=== PATIENT | male | born 1955 | race Caucasian/White ===

== ENCOUNTER → 2017-07-03 07:16 | Outpatient (CLI) | payer MEDICAID, SELFPAY ==
[2017-07-03 08:42] LABS: Absolute Lymphocyte Count 4.75 X10^3/ul (0.83-4.51); Absolute Neutrophil Count 4.4 X10^3/uL (2.0-7.7); Basophil# 0.09 X10^3/uL; Basophil% 0.8 % (0-1); Eosinophil# 0.16 X10^3/uL; Eosinophils% 1.5 % (0-5); Hematocrit 42.7 % (40-54); Hemoglobin 14.5 g/dl (13.0-16.5); Lymphocyte # 4.75 X10^3/ul (4.0); Lymphocyte % 44.6 % (19-41); Mean Corpuscular Hgb 32.4 pg (27.0-32.0); Mean Corpuscular Volume 95.3 fL (80-94); Mean Platelet Vol. 11.6 fl (6.2-12.0); Monocyte# 1.22 X10^3/uL; Monocyte% 11.5 % (0-10); Neutrophil # 4.35 X10^3/uL (2.7-7.7); Neutrophil % 40.9 % (47-70); Platelet Count 196 K/mm3 (150-450); RBC Distribution Width SD 47.3 fl (35.1-43.9); Red Blood Count 4.48 M/mm3 (4.6-6.2); White Blood Count 10.6 K/mm3 (4.4-11.0)
[2017-07-03 08:51] LABS: POSITIVE COUNT NO; POSITIVE DIFFERENTIAL NO; POSITIVE MORPHOLOGY NO
[2017-07-03 09:02] LABS: Valproic Acid (Depakene) Level 85 ug/mL (50-100)
[2017-07-03 09:09] LABS: ALB/GLOB Ratio 0.9 RATIO (0.9-2.4); AST(SGOT) 38 U/L (15-37); Alanine Aminotransfer ALT/SGPT 40 U/L (16-61); Albumin, Serum 3.2 g/dL (3.2-5.0); Alkaline Phosphatase 63 U/L (45-117); Anion Gap 9 (5-15); BUN 17 mg/dL (7-18); BUN/Creat Ratio 17.5 RATIO (10-20); Calcium,Total 8.9 mg/dL (8.5-10.1); Chloride 107 mmol/L (98-107); Creatinine, Serum 0.97 mg/dL (0.70-1.30); EST Glomerular Filtration Rate 84 mL/min (>60); Est Glom Filt Rate - Afr Amer 101 mL/min (>60); Globulin 3.7 g/dL (2.2-4.2); Glucose 99 mg/dL (74-106); Potassium 4.2 mmol/L (3.5-5.1); Protein, Total 6.9 g/dL (6.4-8.2); Sodium Level 139 mmol/L (136-145)
[2017-07-06 08:20] LABS: Lamotrigine (Lamictal) Level 12.1 ug/mL (2.0-20.0)
== END ==
PROVIDERS: Psychiatry & Neurology Neurology; Family Provider Family Medicine; PCP Family Medicine; Visit Provider Family Medicine
DX: G40.019 Localization-related (focal) (partial) idiopathic epilepsy and epileptic syndromes with seizures of localized onset, intractable, without status epilepticus (principal); G40.319 Generalized idiopathic epilepsy and epileptic syndromes, intractable, without status epilepticus; R27.0 Ataxia, unspecified
CPT/HCPCS: 36415; 80053; 80164; 82542; 85025

== ENCOUNTER 2018-02-01 14:41 | Emergency (ER) | payer MEDICAID, SELFPAY ==
[2018-02-01 14:43] VITALS: BP 154/77; PULSE 84; RESP 26; TEMP 36.9; O2SAT 93; BMI 33.0
--- NOTE | 2018-02-01 15:32 | ED.DCSUM_ITS ---
- ER Visit Summary Date of Service: 02/01/18 Chief Complaint: Tonic-clonic seizure History of Present Illness: The patient is a 62 M history of seizure disorder for which he takes both Depakote and Lamictal. Patient goes to an adult daycare during the day and has home health during the night. Today while at daycare he was sitting in a chair had a approximately a 10-minute seizure according to the staff. The state of tonic-clonic. He did not fall. He did not get injured. Prior to the seizure he had no complaints. He has had no recent head injury. He has not recently been ill according to the daycare personnel and also has home health care personnel. Patient is mentally retarded and is limited informant. Physical Examination: Well-appearing middle-age male. Vital signs are stable and afebrile. Pulse ox 93% on room air. No hypoxia. H EENT exam unremarkable. Face and scalp are atraumatic. Neck nontender. No meningismus. Lungs clear to auscultation bilaterally. Heart regular rhythm no murmur. Chest wall nontender. Abdomen is soft and nontender. Normal bowel sounds. No peritoneal signs. He is moving all 4 extremities. They are nontender. No deformity. Neurologically is awake. He is alert. He knows he is in the hospital. He does follow commands and answers questions. Back is nontender. Skin is unremarkable. Test Results: CBC normal white count 8. Hemoglobin 14. Chemistries unremarkable gap of 8. Creatinine normal. Valproic acid level was 83. The Depakote level is a send out. Emergency Department Course and Treatment: Recurrent breakthrough seizure with a history of seizure disorder. Repeat exam the patient is doing well at 1858. Will be discharged home. Continue his current medications. And follow-up with his neurologist. Treatment Plan: Follow-up with his neurologist. Disposition: dc Impression: Recurrent seizure History of seizure disorder History of mental retardation This note was generated with Encentuateation software. It may contain incorrect words, spelling, and punctuation that were not noted in review of the chart prior to signing ED Disposition - Plan for ED Patient: Chief Complaint: Seizure Referrals: Nigel Michelle MD [Primary Care Provider] -
[2018-02-01 15:56] LABS: Absolute Neutrophil Count 3.3 X10^3/uL (2.0-7.7); Basophil# 0.07 X10^3/uL; Basophil% 0.8 % (0-1); Eosinophil# 0.17 X10^3/uL; Eosinophils% 1.9 % (0-5); Hematocrit 41.3 % (40-54); Lymphocyte % 42.7 % (19-41); Mean Corp Hgb Conc 33.9 g/gl (32-36); Mean Corpuscular Hgb 32.9 pg (27.0-32.0); Mean Corpuscular Volume 96.9 fL (80-94); Mean Platelet Vol. 11.4 fl (6.2-12.0); Monocyte# 1.44 X10^3/uL; Monocyte% 16.2 % (0-10); Neutrophil # 3.32 X10^3/uL (2.7-7.7); Neutrophil % 37.4 % (47-70); Platelet Count 187 K/mm3 (150-450); RBC Distribution Width CV 14.6 % (11.6-14.6); RBC Distribution Width SD 50.3 fl (35.1-43.9); Red Blood Count 4.26 M/mm3 (4.6-6.2); White Blood Count 8.9 K/mm3 (4.4-11.0)
[2018-02-01 16:04] LABS: POSITIVE COUNT NO; POSITIVE DIFFERENTIAL NO; POSITIVE MORPHOLOGY NO
[2018-02-01 16:56] VITALS: BP 168/88; PULSE 80; RESP 14; O2SAT 96
[2018-02-01 17:50] LABS: Valproic Acid (Depakene) Level 83 ug/mL (50-100)
[2018-02-01 17:53] LABS: Anion Gap 8 (5-15); BUN 17 mg/dL (7-18); BUN/Creat Ratio 18.2 RATIO (10-20); Chloride 109 mmol/L (98-107); Creatinine, Serum 0.93 mg/dL (0.70-1.30); EST Glomerular Filtration Rate 87 mL/min (>60); Est Glom Filt Rate - Afr Amer 106 mL/min (>60); Estimated Creatinine Clearance 86.13 ml/min; Glucose 115 mg/dL (74-106); Potassium 4.4 mmol/L (3.5-5.1); Sodium Level 142 mmol/L (136-145)
[2018-02-01 18:00] VITALS: BP 177/84; PULSE 84; RESP 18; O2SAT 95
--- NOTE | 2018-02-01 19:00 | ED.DEP ---
ED Disposition - Plan for ED Patient: Disposition: Home or Assisted Living Chief Complaint: Seizure Instructions: ED Seizure Recurrent Referrals: Nigel Michelle MD [Primary Care Provider] - As soon as possible Additional Instructions: Continue your current medications. Follow-up with your neurologist.
[2018-02-01 19:15] VITALS: BP 161/83; PULSE 79; RESP 26; O2SAT 93
[2018-02-08 09:43] LABS: Lamotrigine (Lamictal) Level 9.9 ug/mL (2.0-20.0)
== END 2018-02-01 19:17 | disposition home or self-care (01) ==
PROVIDERS: Emergency Provider Emergency Medicine; Family Provider Family Medicine; PCP Family Medicine
DX: G40.409 Other generalized epilepsy and epileptic syndromes, not intractable, without status epilepticus (principal); F79 Unspecified intellectual disabilities; Z79.899 Other long term (current) drug therapy
CPT/HCPCS: 80048; 80164; 82542; 85025; 99285; A4216

== ENCOUNTER 2018-05-31 08:27 | Emergency (ER) | payer MEDICAID, SELFPAY ==
[2018-05-31 08:28] VITALS: BP 142/77; PULSE 73; RESP 16; TEMP 36.7; O2SAT 96; BMI 26.7
--- NOTE | 2018-05-31 08:50 | ED.DCSUM_ITS ---
- ER Visit Summary Date of Service: 05/31/18 Chief Complaint: Left third finger injury History of Present Illness: The patient is a 62 M [facility] in [facility]. Patient's left third finger was noted to be swollen and bruised this morning. He states it occurred at work shop yesterday. He does not elaborate on how it happened. Denies any other injury. Physical Examination: Vital signs unremarkable. Patient sitting upright in bed no acute distress. Left upper extremity examination reveals left third finger to be diffusely edematous and ecchymotic. He does have decreased range of motion. He does have diffuse tenderness palpation, slightly worse over the PIP joint. Test Results: X-rays read by radiology as degenerative changes with no evidence of fracture. There are a few areas that look like he may have a slight fracture line through an osteophyte, but these edges are smooth and may not be acute. Emergency Department Course and Treatment: An AlumaFoam splint is placed to the left third finger for comfort. Treatment Plan: [] Disposition: Discharge Impression: 1. Left hand contusion 2. Left third finger sprain This note was generated with [employer] dictation software. It may contain incorrect words, spelling, and punctuation that were not noted in review of the chart prior to signing ED Disposition - Plan for ED Patient: Referrals: Nigel Michelle MD [Primary Care Provider] -
--- NOTE | 2018-05-31 08:50 | RAD_ITS ---
STUDY: X-RAY - LEFT HAND REASON FOR EXAM: Male, 62 years old. Pain and swelling following recent injury. TECHNIQUE: 3 view(s) of the hand. COMPARISON: Comparison is made with prior examination dated September 30, 2013. FINDINGS: Normal radiocarpal articulation. Normal distal radioulnar joint. Normal visualized carpal bones. Normal carpal articulations Normal carpometacarpal articulation of the thumb. Normal second through fifth carpometacarpal joints. Normal metacarpi. Normal metacarpophalangeal joint of the thumb. Normal interphalangeal joint of the thumb. Normal proximal and distal phalanges of the thumb. Normal metacarpophalangeal joints of the second through fifth fingers. There is diffuse articular joint space narrowing of the proximal and distal interphalangeal joints of the second through fifth fingers, but without erosive changes or periarticular soft tissue swelling. Normal phalanges of the second through fifth fingers. The soft tissue structures are unremarkable. RAD/Hand Min 3 Views IMPRESSION: Degenerative changes. No fracture is seen. Electronically Signed: Nislon Verma MD at 9:26 EST , Service support ,
--- NOTE | 2018-05-31 09:58 | ED.DEP ---
ED Disposition - Plan for ED Patient: Disposition: Home or Assisted Living Instructions: ED Sprain Finger Referrals: Nigel Michelle MD [Primary Care Provider] - 1 Week
[2018-05-31 10:07] VITALS: PULSE 76; RESP 14; O2SAT 98
== END 2018-05-31 10:08 | disposition home or self-care (01) ==
PROVIDERS: Emergency Provider Emergency Medicine; Family Provider Family Medicine; PCP Family Medicine
DX: S63.613A Unspecified sprain of left middle finger, initial encounter (principal); X58.XXXA Exposure to other specified factors, initial encounter; Y93.9 Activity, unspecified; Y92.69 Other specified industrial and construction area as the place of occurrence of the external cause; Y99.9 Unspecified external cause status; S60.222A Contusion of left hand, initial encounter; R56.9 Unspecified convulsions; F79 Unspecified intellectual disabilities; Z79.899 Other long term (current) drug therapy
CPT/HCPCS: 73130; 99282

== ENCOUNTER 2018-10-30 18:03 | Emergency (ER) | payer MEDICAID, SELFPAY ==
[2018-10-30] VITALS (8 sets, daily range): BP systolic 91–169; BP diastolic 53–103; PULSE 66–99; RESP 18–24; TEMP 36.7–37.2; O2SAT 90–93; BMI 34.4
--- NOTE | 2018-10-30 18:41 | EKG12_ITS ---
Test Reason : LOC Blood Pressure : / mmHG Vent. Rate : 084 BPM Atrial Rate : 084 BPM P-R Int : 208 ms QRS Dur : 076 ms QT Int : 368 ms P-R-T Axes : 058 -11 030 degrees QTc Int : 434 ms Normal sinus rhythm Minimal voltage criteria for LVH, may be normal variant Nonspecific ST abnormality Abnormal ECG Confirmed by OTONIEL OVERTON, JERSEY ([id number]), metropolitan editor RUSSELL JOHNSON ([id number]) on 11/01/2018 12:26:34 PM Referred By: ROBERT Confirmed By:ДМИТРИЙ FREDERICK MD
[2018-10-30 18:58] LABS: Absolute Neutrophil Count 3.4 X10^3/uL (2.0-7.7); Basophil# 0.04 X10^3/uL; Basophil% 0.4 % (0-1); Eosinophil# 0.11 X10^3/uL; Eosinophils% 1.2 % (0-5); Hematocrit 40.2 % (40-54); Hemoglobin 13.9 g/dl (13.0-16.5); Lymphocyte % 44.8 % (19-41); Mean Corp Hgb Conc 34.6 g/gl (32-36); Mean Corpuscular Hgb 33.3 pg (27.0-32.0); Mean Corpuscular Volume 96.2 fL (80-94); Mean Platelet Vol. 12.2 fl (6.2-12.0); Monocyte% 15.3 % (0-10); Neutrophil % 37.1 % (47-70); Platelet Count 124 K/mm3 (150-450); RBC Distribution Width CV 14.5 % (11.6-14.6); RBC Distribution Width SD 49.2 fl (35.1-43.9); Red Blood Count 4.18 M/mm3 (4.6-6.2); White Blood Count 9.2 K/mm3 (4.4-11.0)
[2018-10-30] MEDS: 0.9% Normal Saline 1,000 ML 1000 ML IV (18:58)
[2018-10-30 18:59] LABS: POSITIVE COUNT NO; POSITIVE DIFFERENTIAL NO; POSITIVE MORPHOLOGY NO
--- NOTE | 2018-10-30 19:13 | RAD_ITS ---
STUDY: X-RAY CHEST REASON FOR EXAM: Male, 63 years old. Chest pain TECHNIQUE: PA and lateral views of the chest COMPARISON: X-ray chest November 15, 2016 FINDINGS: Left chest pacemaker is present. Retrocardiac atelectasis and/or infiltrate is present. Lung volumes are low with compressive changes. There are no pleural effusions. There is no pneumothorax. The heart is enlarged. The visualized osseous structures are within normal limits. RAD/Chest PA and Lateral IMPRESSION: Retrocardiac atelectasis and/or infiltrate. Low lung volumes with compressive changes. Cardiomegaly. Electronically Signed: Nigel Elam, at 19:27 EDT Tel , Service support ,
--- NOTE | 2018-10-30 19:13 | ED.RN ---
DR MEDINA AWARE OF LACTIC ACID 2.9.
[2018-10-30 19:14] LABS: Lactic Acid 2.9 mmol/L (0.4-2.0)
[2018-10-30 19:15] LABS: Anion Gap 9 (5-15); BUN 23 mg/dL (7-18); BUN/Creat Ratio 19.3 RATIO (10-20); Calcium,Total 9.6 mg/dL (8.5-10.1); Chloride 107 mmol/L (98-107); Creatinine, Serum 1.19 mg/dL (0.70-1.30); EST Glomerular Filtration Rate 66 mL/min (>60); Est Glom Filt Rate - Afr Amer 80 mL/min (>60); Estimated Creatinine Clearance 62.27 ml/min; Glucose 112 mg/dL (74-106); Potassium 4.2 mmol/L (3.5-5.1); Sodium Level 141 mmol/L (136-145)
[2018-10-30 22:52] LABS: Reflex Lactate? Y
--- NOTE | 2018-10-30 23:15 | ED.VISSUMM ---
- ER Visit Summary Date of Service: 10/30/18 Chief Complaint: Not himself holding History of Present Illness: The patient is a 63 M history of seizures and mental retardation. Per the nursing home personnel states she is not acting himself but currently she thinks he is back to his baseline. Denies any fever, vomiting, diarrhea or any other. Patient himself is a limited informant. Physical Examination: Initial blood pressure was 91/60 2-hour went in the room during exam is 141/71. Pulse ox 90% on room air with hypoxia but there are other times when his pulse ox was in the mid 90s. He is in no respiratory distress. HEENT exam is atraumatic. Poor dentition. Moist wheeze members. Neck nontender no lymphadenopathy. Lungs good auscultation bilaterally. Heart regular rhythm no murmur. Abdomen soft and nontender. Extremities moves all 4. Neurologically he is awake. He is alert. He does say hello. He does follow limited commands. Per the nursing home personnel this is his baseline she states he functions at a fifth-grade level. Test Results: CBC White count 9. Hemoglobin 13. Platelets 124,000. Chemistries normal normal gap. Normal creatinine 1.1. We attempted to get urine from the patient he was not want to urinate. He became emotionally upset and I did not want to put into a straight cath. So urine was not able to be obtained. We did try to persuade him other ways by offering him food or beverage and he refused to give urine. Troponin less than 0.015. Lactate 2.9. Chest x-ray shows atelectasis but no acute infiltrate read by myself and the radiologist. EKG was a sinus rhythm rate of 84 with no acute signs of FL or ischemia or any significant change from prior EKG from 2017. Emergency Department Course and Treatment: Multiple repeat exams are unchanged. Patient was sent for a CAT scan but could not hold still clinically I do not feel that he has an acute intracranial abnormality so we are going to cancel the CAT scan and the urinalysis. Repeat exam at 2309 is doing well. They are comfortable with him being discharged back to the nursing home. Treatment Plan: Follow-up with his primary care physician. Disposition: Discharge Impression: Transient hypotension resolved Transient mental status change resolved This note was generated with Freight Connectionation software. It may contain incorrect words, spelling, and punctuation that were not noted in review of the chart prior to signing ED Disposition - Plan for ED Patient: Referrals: Jesus Noble MD [Primary Care Provider] -
--- NOTE | 2018-10-30 23:23 | ED.DEP ---
ED Disposition - Plan for ED Patient: Disposition: Home or Assisted Living Instructions: Altered Loc Referrals: Jesus Noble MD [Primary Care Provider] - 3-5 Days Additional Instructions: Follow-up with your doctor if not improving. Return to ER if feeling worse.
[2018-10-30 23:42] LABS: Lactic Acid 1.5 mmol/L (0.4-2.0)
== END 2018-10-30 23:55 | disposition home or self-care (01) ==
PROVIDERS: Emergency Provider Emergency Medicine; Family Provider Family Medicine; PCP Family Medicine
DX: R41.82 Altered mental status, unspecified (principal); I95.9 Hypotension, unspecified; R09.02 Hypoxemia; R56.9 Unspecified convulsions; F79 Unspecified intellectual disabilities; Z79.899 Other long term (current) drug therapy
CPT/HCPCS: 71046; 80048; 83605; 84484; 85025; 93005; 96360; 96361; 99285; J7030; A4216

== ENCOUNTER 2019-02-21 16:32 | Emergency (ER) | payer MEDICAID, SELFPAY ==
[2018-10-30 18:04] VITALS: BMI 34.4
[2019-02-21 16:33] VITALS: BP 140/100; PULSE 100; RESP 17; TEMP 37.1; O2SAT 96; BMI 30.1
--- NOTE | 2019-02-21 16:55 | RAD_ITS ---
STUDY: X-RAY CHEST REASON FOR EXAM: Male, 63 years old. Weakness with fever. TECHNIQUE: Single frontal view of the chest. COMPARISON: October 30, 2018 FINDINGS: Low volume inspiration with elevation of the right hemidiaphragm and atelectasis of the right middle and lower lobes. There is no demonstrated pleural abnormality. Stable cardiomegaly. Normal mediastinum and eliot. Normal visualized pulmonary arteries. Normal visualized aortic arch and descending thoracic aorta. Normal visualized thoracic spine. Normal visualized ribs, clavicles, and shoulders. There is no demonstrated abnormality of the visualized soft tissue structures of the upper abdomen. RAD/Chest 1 View (Portable) IMPRESSION: Cardiomegaly with low volume inspiration. No acute finding. Electronically Signed: Donaldo Kang MD at 17:08 EDT , Service support ,
--- NOTE | 2019-02-21 16:55 | ED.VIS.GEN ---
History of Present Illness Chief Complaint: Weakness Informant: Patient Onset: Today Context: Gradual Onset Timing: Continuous Current Severity: Moderate Maximum Severity: Moderate Narrative: The patient is a 63-year-old male with medical history significant for MRDD and significant seizure disorder who presents to the emergency department with fever and weakness. Patient currently lives in a senior living. Today, they were trying to get him up for his activities. He states that he got very weak and had difficulty standing. He needed multiple nurses to help him which is not his norm. They did take him to his primary care and is found to have a fever of 101. He denies any current symptoms. He denies any recent illness. He does have a VNS stimulator in place. He is otherwise been in his normal state of health. Prior similar symptoms: No Recent Illness/Hospitalization: No Past Medical History - Allergies and Home Meds Allergies/Adverse Reactions: Allergies camphor [From Vicks Vaporub] Allergy (Verified 05/31/18 09:32) Other clobazam [From Onfi] Allergy (Verified 05/31/18 09:32) Other eucalyptus [From Vicks Vaporub] Allergy (Verified 05/31/18 09:32) Other eucalyptus oil [From Vicks Vaporub] Allergy (Verified 05/31/18 09:32) Other levetiracetam [From Keppra] Allergy (Verified 05/31/18 09:32) Other menthol [From Vicks Vaporub] Allergy (Verified 05/31/18 09:32) Other petrolatum,white [From Vicks Vaporub] Allergy (Verified 05/31/18 09:32) Other turpentine oil [From Vicks Vaporub] Allergy (Verified 05/31/18 09:32) Other Primary Care Physician: Jesus Noble MD [Primary Care Provider] - Prior records reviewed: Yes Past Medical History: - - MRDD, seizure disorder Smoking Status: Never smoker Review of Systems General: Reports: Chills, Fever Eyes: Denies: Visual changes - bilaterally, Diplopia ENT: Denies: Rhinorrhea, Sore throat Cardiovascular: Denies: Chest pain, Palpitations Respiratory: Denies: Dyspnea, Cough, Dyspnea on exertion Gastrointestinal: Denies: Abdominal pain, Nausea, Vomiting, Diarrhea, Melena, Hematochezia Genitourinary: Denies: Dysuria, Hematuria, Frequency Musculoskeletal: Denies: Back pain, Extremity Pain Skin: Denies: Rash, Wounds Neurological: Reports: Weakness Physical Exam Vital Signs/Narrative: Vital Signs Temp Pulse Resp BP Pulse Ox 02/21/19 16:33 98.7 F 100 17 140/100 H 96 Inital Vital Signs reviewed: Yes General: Well nourished, Unkempt Head: Normocephalic, Atraumatic Eyes: Perrl, EOMI ENT: Moist mucous membranes, No rhinorrhea Neck: Supple, Nontender Cardiovascular: Regular rate, Regular rhythm, No murmurs Respiratory: No distress, CTA bilaterally, Chest nontender Abdomen: Soft, Nontender, Nondistended, Normal bowel sounds Back: Nontender, Normal Inspection Extremities: Nontender, No edema Skin: Normal color, No rash Neurological: Alert, Normal Strength, Normal Sensation Psychological: Normal affect Diagnostic/Tx/Re-eval Chest X-Ray - ED: 2 View, Read by ED Physician, Normal, Heart, Lungs, Mediastinum Clinical Impression(s) from Imaging Studies Chest X-Ray 02/21/19 16:55 IMPRESSION: Cardiomegaly with low volume inspiration. No acute finding. Electronically Signed: Donaldo Knag MD at 17:08 EDT , Service support , Abnormal Lab Results 02/21/19 02/21/19 02/21/19 17:18 17:18 17:35 WBC 16.8 H RBC 3.97 L Hgb 13.3 Hct 40.1 MCV 101.0 H MCH 33.5 H MCHC 33.2 RDW Std Deviation 52.4 H RDW Coeff of Stephany 13.9 Plt Count 119 L MPV 11.9 Immature Gran % (Auto) 0.700 Neut % (Auto) 57.2 Lymph % (Auto) 23.8 [place] % (Auto) 17.9 H Eos % (Auto) 0.1 Baso % (Auto) 0.3 Absolute Neuts (auto) 9.6 H Absolute Lymphs (auto) 3.99 Nucleated RBC % 0 Differential Comment Diff Path Review May foll Platelet Estimate SLT DEC RBC Morphology NORM C+C Sodium 141 Potassium 3.9 Chloride 104 Carbon Dioxide 27.0 Anion Gap 10 BUN 20 H Creatinine 1.06 Estim Creat Clear Calc 74.61 Est GFR (MDRD) Af Amer 91 Est GFR (MDRD) Non-Af 75 BUN/Creatinine Ratio 18.9 Glucose 96 Lactic Acid Calcium 9.1 Total Bilirubin 0.60 AST 29 ALT 23 Alkaline Phosphatase 55 Total Protein 6.9 Albumin 3.0 L Globulin 3.9 Albumin/Globulin Ratio 0.8 L Urine Color Yellow Urine Clarity Sl. Cloudy Urine pH 6.5 Ur Specific Vandiver 1.015 Urine Protein Negative Urine Glucose (UA) Normal Urine Ketones 5 H Urine Occult Blood Negative Urine Nitrite Negative Urine Bilirubin Negative Urine Urobilinogen 1 H Ur Leukocyte Esterase 25 H Urine RBC 0 SEEN Urine WBC 0-5 SEEN Ur Squamous Epith Cells 0-5 SEEN Amorphous Sediment 2+ Urine Bacteria 0 SEEN Urine Mucus 0 SEEN 02/21/19 18:30 WBC RBC Hgb Hct MCV MCH MCHC RDW Std Deviation RDW Coeff of Stephany Plt Count MPV Immature Gran % (Auto) Neut % (Auto) Lymph % (Auto) [place] % (Auto) Eos % (Auto) Baso % (Auto) Absolute Neuts (auto) Absolute Lymphs (auto) Nucleated RBC % Differential Comment Diff Path Review Platelet Estimate RBC Morphology Sodium Potassium Chloride Carbon Dioxide Anion Gap BUN Creatinine Estim Creat Clear Calc Est GFR (MDRD) Af Amer Est GFR (MDRD) Non-Af BUN/Creatinine Ratio Glucose Lactic Acid 1.4 Calcium Total Bilirubin AST ALT Alkaline Phosphatase Total Protein Albumin Globulin Albumin/Globulin Ratio Urine Color Urine Clarity Urine pH Ur Specific Vandiver Urine Protein Urine Glucose (UA) Urine Ketones Urine Occult Blood Urine Nitrite Urine Bilirubin Urine Urobilinogen Ur Leukocyte Esterase Urine RBC Urine WBC Ur Squamous Epith Cells Amorphous Sediment Urine Bacteria Urine Mucus - Medical Decision Making The patient presents with fever and generalized weakness. As soon as his fever was treated, he was feeling markedly improved. Broad metabolic work-up was pursued. I examined the patient skin. There was no answer cellulitis. He has no tenderness over his stimulator. Chest x-ray shows no focal infiltrative process. Urine shows no evidence of infection. The patient was hydrated. He has returned back to baseline. He does have a mild leukocytosis, but otherwise his labs are unremarkable. At this point I cannot find any definitive infectious process. I do feel that he is safe for transfer back to his senior living. They are comfortable with this plan of care. He will be discharged. Impression 1. Febrile illness ED Disposition - Plan for ED Patient: Instructions: FEBRILE ILLNESS, Uncertain Cause (Adult) Referrals: Jesus Noble MD [Primary Care Provider] -
[2019-02-21] MEDS: 0.9% Normal Saline 1,000 ML 1000 ML IV (17:21)
[2019-02-21 17:39] LABS: Bacteria 0 SEEN /hpf (None Seen); Mucous, Urine 0 SEEN /hpf (<or=2+); Red Blood Cells-Urine 0 SEEN /hpf (0-5)
[2019-02-21 17:51] LABS: Color, Urine Yellow (Yellow); Glucose, Dipstick Normal (Normal); Ketone-Dipstick 5 mg/dl (Negative); Leukocyte Esterase-Dipstick 25 /ul (Negative); Nitrite-Dipstick Negative (Negative); Occult Blood-Urine Negative /ul (Negative); Protein-Dipstick Negative (Negative); Specific Gravity, Urine 1.015 (1.002-1.030); Urine Bilirubin Dipstick Negative (Negative); Urine Clarity Sl. Cloudy (Clear); Urine Urobilinogen 1 mg/dl (Normal); Urine pH 6.5 (5.0 - 8.0)
[2019-02-21 18:07] LABS: White Blood Cells 0-5 SEEN /hpf (0-5)
[2019-02-21 18:08] LABS: Amorphous Sediment 2+; Squamous Epithelial Cells - UA 0-5 SEEN /hpf (0-5)
[2019-02-21 18:09] LABS: Absolute Lymphocyte Count 3.99 X10^3/uL (0.83-4.51); Absolute Neutrophil Count 9.6 X10^3/uL (2.0-7.7); Basophil# 0.05 X10^3/uL; Basophil% 0.3 % (0-1); Eosinophil# 0.02 X10^3/uL; Eosinophils% 0.1 % (0-5); Hematocrit 40.1 % (40-54); Hemoglobin 13.3 g/dL (13.0-16.5); Lymphocyte # 3.99 X10^3/ul (4.0); Lymphocyte % 23.8 % (19-41); Mean Corp Hgb Conc 33.2 g/dL (32-36); Mean Corpuscular Hgb 33.5 pg (27.0-32.0); Mean Platelet Vol. 11.9 fl (6.2-12.0); Monocyte# 3.01 X10^3/uL; Monocyte% 17.9 % (0-10); NRBC Flagged by Analyzer 0 % (0-5); Neutrophil # 9.61 X10^3/uL (2.7-7.7); Neutrophil % 57.2 % (47-70); POSITIVE DIFFERENTIAL YES; Platelet Count 119 K/mm3 (150-450); RBC Distribution Width CV 13.9 % (11.6-14.6); RBC Distribution Width SD 52.4 fl (35.1-43.9); Red Blood Count 3.97 M/mm3 (4.6-6.2); White Blood Count 16.8 K/mm3 (4.4-11.0)
[2019-02-21 18:14] LABS: ALB/GLOB Ratio 0.8 RATIO (0.9-2.4); AST(SGOT) 29 U/L (15-37); Alanine Aminotransfer ALT/SGPT 23 U/L (16-61); Alkaline Phosphatase 55 U/L (45-117); Anion Gap 10 (5-15); BUN 20 mg/dL (7-18); BUN/Creat Ratio 18.9 RATIO (10-20); Calcium,Total 9.1 mg/dL (8.5-10.1); Chloride 104 mmol/L (98-107); Creatinine, Serum 1.06 mg/dL (0.70-1.30); EST Glomerular Filtration Rate 75 mL/min (>60); Est Glom Filt Rate - Afr Amer 91 mL/min (>60); Estimated Creatinine Clearance 74.61 ml/min; Globulin 3.9 g/dL (2.2-4.2); Glucose 96 mg/dL (74-106); Potassium 3.9 mmol/L (3.5-5.1); Protein, Total 6.9 g/dL (6.4-8.2); Sodium Level 141 mmol/L (136-145)
[2019-02-21 18:21] LABS: Differential Indicated SCAN CRITERIA MET
[2019-02-21 18:46] VITALS: PULSE 82; RESP 18; TEMP 37.4; O2SAT 97
[2019-02-21 19:09] LABS: Platelet Estimate SLT DEC (ADEQ); Red Cell Morphology NORM C+C NORMAL (NORM C&C)
[2019-02-21 19:26] LABS: Lactic Acid 1.4 mmol/L (0.4-2.0)
[2019-02-21 19:40] VITALS: BP 148/89; PULSE 80; RESP 16; TEMP 37.8; O2SAT 95
[2019-02-24 12:03] LABS: Pathologist Review Reviewed
== END 2019-02-21 20:00 | disposition home or self-care (01) ==
LOC: ED 17:03
PROVIDERS: Emergency Provider Emergency Medicine; Family Provider Family Medicine; PCP Family Medicine
DX: R50.9 Fever, unspecified (principal); G40.909 Epilepsy, unspecified, not intractable, without status epilepticus; F79 Unspecified intellectual disabilities; Z79.899 Other long term (current) drug therapy
CPT/HCPCS: 71045; 80053; 81001; 83605; 85025; 87804; 96360; 99284; J7030; A4216

== ENCOUNTER 2019-10-13 18:08 | Emergency (ER) | payer MEDICAID, SELFPAY ==
[2019-10-13 18:09] VITALS: BP 140/71; BP 161/118; PULSE 84; PULSE 87; RESP 14; RESP 16; TEMP 37.7; O2SAT 95; BMI 33.0
--- NOTE | 2019-10-13 18:42 | CT_ITS ---
STUDY: CT PELVIS WITHOUT CONTRAST REASON FOR EXAM: Male, 64 years old. FALL ON 10-08-19.BILAT HIP PAIN,refusing to get out of bed today RADIATION DOSAGE (If Supplied By Facility): CTDIvol = ( 25.40 ) mGy, DLP = ( 849.93 ) mGycm TECHNIQUE: Transaxial imaging of the pelvis was performed with oral contrast, and without intravenous administration of contrast material. Individualized dose optimization techniques were used for this CT. COMPARISON: None. FINDINGS: Normal urinary bladder. Nonspecific enlargement of the prostate. Normal visualized small intestine. Normal visualized colon. There is no pelvic fluid. There is no pelvic mass lesion or lymphadenopathy. Normal visualized pelvic arteries. Normal abdominal wall. Normal osseous structures. CT/Pelvis without IV Contrast IMPRESSION: Normal unenhanced CT of the pelvis. Electronically Signed: Nigel Dawson MD at 19:43 EDT , Service support ,
--- NOTE | 2019-10-13 18:43 | ED.VIS.GEN ---
History of Present Illness Chief Complaint: Fall Informant: - Onset: Days Context: Gradual Onset Narrative: [facility]. He reportedly had a fall on the where he slipped in the shower. He thought he just had a few scratches. Patient has had increasing antalgic gait with hip pain. Caregiver at bedside believes it is left hip, however patient was earlier stating his right hip hurt. Today he has not been wanting to get up out of bed. - Past Medical History (1) Hypertension Status: Chronic (2) High cholesterol Status: Chronic (3) Seizures Status: Chronic Past Medical History - Allergies and Home Meds Allergies/Adverse Reactions: Allergies camphor [From Vicks Vaporub] Allergy (Verified 10/13/19 18:16) Other clobazam [From Onfi] Allergy (Verified 10/13/19 18:16) Other eucalyptus [From Vicks Vaporub] Allergy (Verified 10/13/19 18:16) Other eucalyptus oil [From Vicks Vaporub] Allergy (Verified 10/13/19 18:16) Other levetiracetam [From Keppra] Allergy (Verified 10/13/19 18:16) Other menthol [From Vicks Vaporub] Allergy (Verified 10/13/19 18:16) Other petrolatum,white [From Vicks Vaporub] Allergy (Verified 10/13/19 18:16) Other turpentine oil [From Vicks Vaporub] Allergy (Verified 10/13/19 18:16) Other Primary Care Physician: Jesus Noble MD [Primary Care Provider] - Prior records reviewed: Yes [facility] Smoking Status: Unknown if ever smoked Review of Systems General: Denies: Chills, Fever Cardiovascular: Denies: Chest pain Respiratory: Denies: Dyspnea, Cough Gastrointestinal: Denies: Abdominal pain, Vomiting, Diarrhea Musculoskeletal: Reports: Extremity Pain Skin: Denies: Rash Neurological: Denies: Headache Hematologic: Denies: Easy bruising, Easy bleeding Allergy: Denies: Uticaria Physical Exam Vital Signs/Narrative: Vital Signs Temp Pulse Resp BP Pulse Ox 10/13/19 18:09 99.9 F H 84 14 140/71 H 95 Inital Vital Signs reviewed: Yes General: Well nourished, Well developed Head: Normocephalic ENT: Moist mucous membranes Neck: Supple Cardiovascular: Regular rate, Regular rhythm Respiratory: No distress, CTA bilaterally Abdomen: Soft, Nontender Extremities: - - Patient does flinch with palpation over the anterior right hip. Leg lengths appear equal. Strong Distal pulses are noted. Neurological: Alert Psychological: Normal affect Diagnostic/Tx/Re-eval Impressions Pelvis CT 10/13/19 18:42 IMPRESSION: Normal unenhanced CT of the pelvis. Electronically Signed: Nigel Dawson MD at 19:43 EDT , Service support , 10/13/19 18:42 CT Pel [Pelvis without IV Contrast] [CT] Stat - Medical Decision Making CT scan the pelvis was obtained and reveals no acute abnormalities. Staff number does state the patient was able to get up and ambulate once they got him up. My suspicion is that he has a contusion or sprain to his hip it is painful for him to move. Test results discussed with staff member at bedside and [facility] be [facility] ED Disposition - Plan for ED Patient: Disposition: Home or Assisted Living Diagnosis: Hip sprain Instructions: ED Sprain Hip Referrals: Jesus Noble MD [Primary Care Provider] - 3-5 Days if not improving
[2019-10-13 20:10] VITALS: RESP 18
[2019-10-13 20:34] VITALS: BP 155/91; PULSE 81; RESP 16; O2SAT 97
== END 2019-10-13 20:36 | disposition home or self-care (01) ==
PROVIDERS: Emergency Provider Emergency Medicine; PCP Family Medicine
DX: S73.101A Unspecified sprain of right hip, initial encounter (principal); W18.2XXA Fall in (into) shower or empty bathtub, initial encounter; I10 Essential (primary) hypertension; E78.00 Pure hypercholesterolemia, unspecified; R56.9 Unspecified convulsions; Z79.899 Other long term (current) drug therapy
CPT/HCPCS: 72192; 99284

== ENCOUNTER 2019-10-16 16:57 | Inpatient (IN) | payer MEDICAID, SELFPAY ==
[2019-10-16] VITALS (10 sets, daily range): BP systolic 72–133; BP diastolic 56–75; PULSE 66–70; RESP 16–18; TEMP 36.4–37.1; O2SAT 93–98; BMI 28.7; BMI 28.3
--- NOTE | 2019-10-16 17:07 | CT_ITS ---
STUDY: CT BRAIN WITHOUT CONTRAST REASON FOR EXAM: Male, 64 years old. WEAKNESS/FALL 11 DAYS AGO/POOR APPETITE. BEST FILMS-PT COMBATIVE RADIATION DOSAGE (If Supplied By Facility): CTDIvol = ( 29.71 ) mGy, DLP = ( 548.95 ) mGycm TECHNIQUE: Transaxial CT imaging of the brain was performed without administration of intravenous contrast material. Individualized dose optimization techniques were used for this CT. COMPARISON: No relevant priors. FINDINGS: Examination is suboptimal due to patient motion and poor patient positioning with elimination of a portion of the right cerebral hemisphere from the [id number] Normal soft tissue structures. Normal calvarium. Mild atrophy and periventricular white matter ischemic changes.. Normal basal ganglia and thalami. Normal brainstem. Normal cerebellum. There is no intracranial hemorrhage. There are no findings of an acute ischemic infarction. Postsurgical changes of the right orbit. Normal visualized paranasal sinuses. CT/Brain/Head without Contrast IMPRESSION: Mild atrophy and periventricular white matter ischemic changes. No evidence for acute intracranial hemorrhage within the visualized portions of the brain however a portion of the right parietal lobe is not visualized due to suboptimal positioning. Electronically Signed: Nigel Dawson MD at 17:51 EDT , Service support ,
--- NOTE | 2019-10-16 17:07 | EKG12_ITS ---
Test Reason : AM EKG Blood Pressure : / mmHG Vent. Rate : 064 BPM Atrial Rate : 064 BPM P-R Int : 200 ms QRS Dur : 078 ms QT Int : 420 ms P-R-T Axes : 063 -01 093 degrees QTc Int : 433 ms Normal sinus rhythm Nonspecific ST and T wave abnormality Abnormal ECG When compared with ECG of 30-OCT-2018 18:48, Nonspecific T wave abnormality, worse in Lateral leads Confirmed by SHORTY ORELLANA ([id number]), film and video editor MARKIE IBARRA ([id number]) on 10/23/2019 12:07:56 PM Referred By: Raymond Luz Confirmed By:SHORTY ORELLANA
[2019-10-16 17:27] LABS: Absolute Lymphocyte Count 4.18 X10^3/uL (0.83-4.51); Absolute Neutrophil Count 7.3 X10^3/uL (2.0-7.7); Basophil# 0.04 X10^3/uL; Basophil% 0.3 % (0-1); Eosinophil# 0.04 X10^3/uL; Eosinophils% 0.3 % (0-5); Hematocrit 42.5 % (40-54); Hemoglobin 14.4 g/dL (13.0-16.5); Lymphocyte # 4.18 X10^3/ul (4.0); Lymphocyte % 30.6 % (19-41); Mean Corp Hgb Conc 33.9 g/dL (32-36); Mean Corpuscular Hgb 33.9 pg (27.0-32.0); Mean Platelet Vol. 12.3 fl (6.2-12.0); Monocyte# 2.03 X10^3/uL; Monocyte% 14.8 % (0-10); NRBC Flagged by Analyzer 0 % (0-5); Neutrophil # 7.29 X10^3/uL (2.7-7.7); Neutrophil % 53.3 % (47-70); POSITIVE DIFFERENTIAL YES; Platelet Count 123 K/mm3 (150-450); RBC Distribution Width CV 13.8 % (11.6-14.6); RBC Distribution Width SD 51.2 fl (35.1-43.9); Red Blood Count 4.25 M/mm3 (4.6-6.2); White Blood Count 13.7 K/mm3 (4.4-11.0)
[2019-10-16 17:36] LABS: Differential Indicated SCAN CRITERIA MET
[2019-10-16] MEDS: Ziprasidone IM 20 MG/ML VIAL IM (17:54)
[2019-10-16 17:57] LABS: Anisocytosis RARE; Macrocytosis RARE; Platelet Estimate SLT DEC (ADEQ); Red Cell Morphology N CHROM NORMAL (NORM C&C)
[2019-10-16 18:03] LABS: Bacteria 0 SEEN /hpf (None Seen); Mucous, Urine 0 SEEN /hpf (<or=2+); Red Blood Cells-Urine 0 SEEN /hpf (0-5)
[2019-10-16 18:17] LABS: ALB/GLOB Ratio 0.7 RATIO (0.9-2.4); AST(SGOT) 50 U/L (15-37); Alanine Aminotransfer ALT/SGPT 26 U/L (16-61); Albumin, Serum 2.9 g/dL (3.2-5.0); Alkaline Phosphatase 61 U/L (45-117); Anion Gap 4 (5-15); BUN 31 mg/dL (7-18); BUN/Creat Ratio 30.1 RATIO (10-20); Calcium,Total 9.8 mg/dL (8.5-10.1); Chloride 103 mmol/L (98-107); Creatinine, Serum 1.03 mg/dL (0.70-1.30); EST Glomerular Filtration Rate 78 mL/min (>60); Est Glom Filt Rate - Afr Amer 94 mL/min (>60); Globulin 4.1 g/dL (2.2-4.2); Glucose 97 mg/dL (74-106); Potassium 3.5 mmol/L (3.5-5.1); Sodium Level 138 mmol/L (136-145)
--- NOTE | 2019-10-16 18:20 | CT_ITS ---
We are attempting to reach an attending provider to discuss findings. An addendum with communication details will be sent when the communication is complete. STUDY: CT BRAIN WITHOUT CONTRAST REASON FOR EXAM: Male, 64 years old. MENTAL STATUS CHANGE, REPEAT CT AFTER PATIENT HAS BEEN MEDICATED, BEST IMAGES POSSIBLE RADIATION DOSAGE (If Supplied By Facility): CTDIvol = ( 44.99 ) mGy, DLP = ( 1386.03 ) mGycm TECHNIQUE: Transaxial CT imaging of the brain was performed without administration of intravenous contrast material. Individualized dose optimization techniques were used for this CT. COMPARISON: October 16, 2019 5:30 PM FINDINGS: Comparison with earlier study demonstrates no evidence for acute bleed. There appears to be increasing hypoattenuation in the left temporal lobe since prior study raising question of evolving infarct. This could be artifactual. MRI would be helpful for further evaluation if clinically warranted No other significant interval change . CT/Brain/Head without Contrast IMPRESSION: No evidence for acute bleed. Cannot exclude early infarct in the left temporal lobe.. MRI would be useful for more definitive evaluation if indicated. Electronically Signed: Nigel Dawson MD at 19:07 EDT , Service support ,
--- NOTE | 2019-10-16 18:30 | RAD_ITS ---
CLINICAL HISTORY: Male, 64 years old. Fall and weakness PROCEDURE: Shunt series Technique: Study consists of AP portable chest supine abdomen and lateral neck FINDINGS: There appears to be a tube projecting over the posterior aspect of the skull which is not entering the skull or within the brain.. The film of the chest demonstrates cardiomegaly and mild right basilar atelectasis. The KUB demonstrates mild nonspecific ileus. There is no shunt tube projecting over the chest wall or abdomen. # of Images: 4 RAD/Shuntogram/Prec Placed Shunt IMPRESSION: No evidence for intraventricular shunt placement Other findings as above N.B. : The above information has been verbally conveyed by Nigel Dawson MD to Dr. En Osorio MD, on 10/16/2019 19:32:39 (ET). Electronically Signed: Nigel Dawson MD at 19:34 EDT , Service support ,
[2019-10-16 18:31] LABS: Color, Urine Amber (Yellow); Glucose, Dipstick Normal (Normal); Ketone-Dipstick 15 mg/dl (Negative); Leukocyte Esterase-Dipstick 100 /ul (Negative); Nitrite-Dipstick Negative (Negative); Occult Blood-Urine Negative /ul (Negative); Protein-Dipstick 15 mg/dl (Negative); Urine Clarity Clear (Clear); Urine Urobilinogen 1 mg/dl (Normal)
[2019-10-16 18:33] LABS: Urine Bilirubin Dipstick 1 mg/dL (Negative)
--- NOTE | 2019-10-16 18:47 | ED.VISSUMM ---
- ER Visit Summary Date of Service: 10/16/19 Chief Complaint: Weakness and mental status change History of Present Illness: The patient is a [address] Noble. He lives at a assisted and has severe mental retardation. He is not accurate informant. Staff there states that he fell 11 days ago. He was seen here 2 days ago and they report that he has been weak and his behavior is been different since that time. They use the fact that he will not watch SpongeBob and eat as examples of this. Physical Examination: Vitals: 98.6, 133/75, 68, 18, 96% room air which is not hypoxic. General: Well-nourished and well-developed. Head: Normocephalic atraumatic. Neck: Supple, no lymphadenopathy. No JVD. Nontender. Cardiovascular: Regular rate and rhythm. No murmurs. Respiratory: No respiratory distress. Clear to auscultation bilaterally. Abdominal: Soft, nontender, nondistended, normal bowel sounds. No guarding, rebound, or peritoneal signs. Back: Nontender. Extremities: Nontender, no edema. Skin: Normal color, no rash. Neurologic: Alert. Moves all extremities well. Psych: Normal affect. Test Results: EKG is sinus at [address] changes. Troponin is negative. UA shows 5-10 white blood cells, but no bacteria. He does have leukocyte Estrace. LFTs show an albumin of 2.9 and AST of 50. Chem-7 shows a BUN of 31. CBC shows a white count of 13.7 monocytes of 15. Depakote level is 143. Lactic acid is 1.9. Clinical Impression(s) from Imaging Studies Brain CT 10/16/19 17:07 IMPRESSION: Mild atrophy and periventricular white matter ischemic changes. No evidence for acute intracranial hemorrhage within the visualized portions of the brain however a portion of the right parietal lobe is not visualized due to suboptimal positioning. Electronically Signed: Nigel Dawson MD at 17:51 EDT , Service support , Brain CT 10/16/19 18:20 IMPRESSION: No evidence for acute bleed. Cannot exclude early infarct in the left temporal lobe.. MRI would be useful for more definitive evaluation if indicated. Electronically Signed: Nigel Dawson MD at 19:07 EDT , Service support , ADDENDUM: 10/16/19 1939 IMPRESSION: No evidence for acute bleed. Cannot exclude early infarct in the left temporal lobe.. MRI would be useful for more definitive evaluation if indicated. N.B. : The above information has been verbally conveyed by Nigel Dawson MD to Dr. En Osorio MD, on 10/16/2019 19:32:45 (ET). Electronically Signed: Nigel Dawson MD at 19:07 EDT , Service support , Shuntogram 10/16/19 18:30 IMPRESSION: No evidence for intraventricular shunt placement Other findings as above N.B. : The above information has been verbally conveyed by Nigel Dawson MD to Dr. En Osorio MD, on 10/16/2019 19:32:39 (ET). Electronically Signed: Nigel Dawson MD at 19:34 EDT , Service support , ADDENDUM: 10/16/191940 IMPRESSION: No evidence for intraventricular shunt placement Other findings as above N.B. : The above information has been verbally conveyed by Nigel Dawson MD to Dr. En Osorio MD, on 10/16/2019 19:32:39 (ET). Electronically Signed: Nigel Dawson MD at 19:34 EDT , Service support , Probable letter she does not really want me to use a side of her her tongue Emergency Department Course and Treatment: Patient did develop some hypotension while here. His blood pressure dropped into the 70s transiently. He was given 2 L normal saline. He is resting comfortably. His urine was sent for culture. Patient would not hold still for the initial CT of his head and there was a great deal of artifact. I had concerned that there was an intracranial hemorrhage in the cerebellar region. He was given Geodon IM because of this and had a repeat CT that does not show any cranial hemorrhage. Treatment Plan: Patient was discussed with Dr. Luz. He will be admitted to the hospital for further evaluation and treatment. Disposition: Admitted in improved condition. Impression: 1. Weakness. 2. Supratherapeutic valproic acid level. 3. Mild ileus. This note was generated with [employer] dictation software. It may contain incorrect words, spelling, and punctuation that were not noted in review of the chart prior to signing ED Disposition - Plan for ED Patient: Referrals: Jesus Noble MD [Primary Care Provider] -
[2019-10-16 18:49] LABS: Valproic Acid (Depakene) Level 143 ug/mL (50-100)
[2019-10-16 18:52] LABS: Squamous Epithelial Cells - UA 0-5 SEEN /hpf (0-5)
[2019-10-16 18:53] LABS: White Blood Cells 5-10 SEEN /hpf (0-5)
[2019-10-16] MEDS: 0.9% Normal Saline 1,000 ML 999 ML IV ×2 (19:00→20:09)
[2019-10-16 20:13] LABS: Lactic Acid 1.9 mmol/L (0.4-1.9)
--- NOTE | 2019-10-16 20:18 | PCM.HP.STD ---
Problem List (1) Cystitis Status: Acute (2) Hypertension Status: Chronic (3) High cholesterol Status: Chronic (4) Seizures Status: Chronic (5) Valproic acid toxicity Status: Acute (6) Weakness Status: Acute History of Present Illness Date of Admission: 10/16/19 Chief Complaint: change in behavior The patient is a 64 year old M with a significant history of MRDD who lives in a detention; and seizure disorder who presents at the emergency department because of a change in behavior. His change in behavior is reported as not eating; and not watching SpongeBob on the TV. Associated with his symptoms is weakness. History was taken from the emergency department doctor because patient could not provide history. At the time of examination patient was obtunded. Patient had just received [employer] to help obtain CAT scan. Shuntogram showed mild ileus; urine showed abnormal urinalysis and lab work showed elevated valproic acid level. Past Medical History Past Medical History (Chronic Problems): Chronic Problems Hypertension (Chronic) High cholesterol (Chronic) Seizures (Chronic) Allergies camphor [From Vicks Vaporub] Allergy (Verified 10/16/19 17:00) Other clobazam [From Onfi] Allergy (Verified 10/16/19 17:00) Other eucalyptus [From Vicks Vaporub] Allergy (Verified 10/16/19 17:00) Other eucalyptus oil [From Vicks Vaporub] Allergy (Verified 10/16/19 17:00) Other levetiracetam [From Keppra] Allergy (Verified 10/16/19 17:00) Other menthol [From Vicks Vaporub] Allergy (Verified 10/16/19 17:00) Other petrolatum,white [From Vicks Vaporub] Allergy (Verified 10/16/19 17:00) Other turpentine oil [From Vicks Vaporub] Allergy (Verified 10/16/19 17:00) Other Home Medications: Ambulatory Orders Medication Instructions Recorded Calcium (Elemental) [Os-Rick 500] 500 mg PO BID 10/17/13 Pyridoxine HCl [Vitamin B6] 100 mg PO DAILY 10/17/13 Divalproex Sodium 1,000 mg PO DAILY@1700 05/31/18 Docusate Sodium [Dok] 100 mg PO PRN PRN 10/13/19 Multivitamin/Iron/Folic Acid 1 ea PO DAILY 10/13/19 [Certavite-Antioxidant Tablet] Divalproex Sodium 500 mg PO DAILY@0800 10/16/19 Lamotrigine [Lamictal Xr] 100 mg PO DAILY 10/16/19 Zonisamide 100 mg PO DAILY 10/16/19 Surgical History: - - Intraventricular shunt placement Smoking Status: Never smoker - *Family History Maternal History Items: - - Unable to obtain as patient is obtunded; and patient's attendant left. Paternal History Items: - - Unable to obtain as patient is obtunded; and patient's attendant left. Review of Systems Unable to obtain accurate/complete ROS d/t: Unable to obtain as patient is obtunded; and patient's attendant left. VTE Information - Inpt Only VTE Present on Admission: No VTE Mechan Device Prophylaxis: None VTE Pharm Prophylaxis ordered?: Yes Patient Problems: Active and Suspected Problems Cystitis (Acute) Valproic acid toxicity (Acute) Weakness (Acute) - Physical Exam Vitals/I&O's: Vital Signs Temp Pulse Resp BP Pulse Ox 98.6 F 66 18 123/74 H 93 10/16/19 16:59 10/16/19 20:10 10/16/19 20:10 10/16/19 20:10 10/16/19 20:10 Oxygen Flow Rate (L/min) 2 Oxygen Delivery Method Nasal Cannula Weight: 90.7 kg Body Mass Index (BMI) 28.7 Intake and Output for Last 24 Hours 10/14/19 10/15/19 10/16/19 23:59 23:59 23:59 Intake Total 1500 / 1500 Balance 1500 / 1500 General: - - Obtunded HEENT: Atraumatic, Normocephalic Neck: Supple, Trachea Midline Lungs: Clear to auscultation, No rhonchi, No wheeze, No rales Cardiovascular: Regular rate, Regular Rhythm, Normal S1, Normal S2 Abdomen: Bowel Sounds Present, Soft, Non Tender Extremities: No edema, Capillary Refill Less than 3 Seconds Skin: No rashes, No breakdown Musculoskeletal: No Tenderness to Palpation of Joints or Extremities Neurological: - - Obtunded Psych/Mental Status: - - Obtunded Laboratory Results 10/16/19 16:40: WBC 13.7 H, RBC 4.25 L, Hgb 14.4, Hct 42.5, MCV 100.0 H, MCH 33.9 H, MCHC 33.9, RDW Std Deviation 51.2 H, RDW Coeff of Stephany 13.8, Plt Count 123 L, MPV 12.3 H, Immature Gran % (Auto) 0.700, Neut % (Auto) 53.3, Lymph % (Auto) 30.6, [place] % (Auto) 14.8 H, Eos % (Auto) 0.3, Baso % (Auto) 0.3, Absolute Neuts (auto) 7.3, Absolute Lymphs (auto) 4.18, Nucleated RBC % 0, Differential Comment SEE COMMENT, Diff Path Review August foll, Platelet Estimate SLT DEC, RBC Morphology N CHROM, Anisocytosis RARE, Macrocytosis RARE 10/16/19 16:40: Sodium Cancelled, Potassium Cancelled, Chloride Cancelled, Carbon Dioxide Cancelled, Anion Gap Cancelled, BUN Cancelled, Creatinine Cancelled, Estim Creat Clear Calc Cancelled, Est GFR (MDRD) Af Amer Cancelled, Est GFR (MDRD) Non-Af Cancelled, BUN/Creatinine Ratio Cancelled, Glucose Cancelled, Calcium Cancelled, Total Bilirubin Cancelled, AST Cancelled, ALT Cancelled, Alkaline Phosphatase Cancelled, Troponin I Cancelled, Total Protein Cancelled, Albumin Cancelled, Globulin Cancelled, Albumin/Globulin Ratio Cancelled 10/16/19 17:46: Valproic Acid 143 H 10/16/19 17:46: Sodium 138, Potassium 3.5, Chloride 103, Carbon Dioxide 31.0, Anion Gap 4 L, BUN 31 H, Creatinine 1.03, Estim Creat Clear Calc 75.80, Est GFR (MDRD) Af Amer 94, Est GFR (MDRD) Non-Af 78, BUN/Creatinine Ratio 30.1 H, Glucose 97, Calcium 9.8, Total Bilirubin 0.70, AST 50 H, ALT 26, Alkaline Phosphatase 61, Troponin I < 0.015, Total Protein 7.0, Albumin 2.9 L, Globulin 4.1, Albumin/Globulin Ratio 0.7 L 10/16/19 18:00: Urine Color Cierra, Urine Clarity Clear, Urine pH 6.0, Ur Specific [place] 1.020, Urine Protein 15 H, Urine Glucose (UA) Normal, Urine Ketones 15 H, Urine Occult Blood Negative, Urine Nitrite Negative, Urine Bilirubin 1 H, Urine Urobilinogen 1 H, Ur Leukocyte Esterase 100 H, Urine RBC 0 SEEN, Urine WBC 5-10 SEEN, Ur Squamous Epith Cells 0-5 SEEN, Urine Bacteria 0 SEEN, Urine Mucus 0 SEEN 10/16/19 18:55: Lactic Acid 1.9 Current Medications Sodium Chloride () 1,000 mls @ 999 mls/hr IV .Q1H1M CAESAR Stop: 10/16/19 20:45 Last Admin: 10/16/19 20:09 Dose: 999 mls/hr Documented by: Assessment/Plan All Active Problems Cystitis (Acute) Valproic acid toxicity (Acute) Weakness (Acute) The patient is a 64 year old M with a significant history of mental retardation who lives in a detention; and seizure disorder who presents at the emergency department because of a change in behavior found to have elevated valproic acid level. Valproic acid toxicity Review of emergency department labs showed valproic acid level of 143. This can be classified as mild toxicity. Review of EKG showed flattening of multiple leads which is changed from EKG on October 30, 2018. AST is mildly elevated. ALT is normal. Albumin is at 2.9. Review of old record showed that abdomen 02/21/2019 was 3.0. We will get ammonia level. Trend CMP. Trend lactic acid level. Ativan IV as needed for seizures. Hold home Depakote. Mild ileus Shuntogram showed mild ileus. We will keep patient n.p.o. except meds. KUB in a.m. Supportive treatment with IV fluids (normal saline). Acute cystitis Patient with abnormal urinalysis. Urine nitrate is negative but leukocyte esterase is elevated. There was no bacteria seen. However with his reported change in behavior will treat as acute cystitis. Placed on ceftriaxone IV daily. Follow urine culture. Seizure disorder Lamotrigine continued. Zonisamide continued. Hold meds if sedated and notify . SATYA Ativan for seizures ordered. Weakness Likely due to elevated Valproic acid level. PT and OT to work with patient. DVT prophylaxis Subcutaneous Lovenox. Inpatient E&M: 77024 Init Hosp L3
[2019-10-16] MEDS: 0.9% Normal Saline 1,000 ML 75 ML IV (22:03)
[2019-10-16] MEDS: Ceftriaxone 1 GM/50 ML BAG IV (22:04)
--- NOTE | 2019-10-16 22:15 | NURSING ---
Spoke with Le from [facility] to update about pt. admission. Le states he goes by Epifanio, pt. usually is active, up with 1 assist, with walker, gait belt and helmet. Has not had a BM for the last 4 days, despite 2 doses of MoM. Very poor appetite recently. Usually accepts meds whole with thin liquids, prefers milk or water with juice mixed in. Able to voice needs and answer simple questions/commands c cues. Le requests daily updates at [phone].
[2019-10-16 22:41] LABS: Valproic Acid (Depakene) Level 130 ug/mL (50-100)
[2019-10-17] VITALS (9 sets, daily range): BP systolic 107–147; BP diastolic 50–72; PULSE 61–75; RESP 15–18; TEMP 36.6–36.9; O2SAT 90–95
[2019-10-17 04:31] LABS: Valproic Acid (Depakene) Level 100 ug/mL (50-100)
[2019-10-17 05:50] LABS: Absolute Lymphocyte Count 4.08 X10^3/uL (0.83-4.51); Absolute Neutrophil Count 6.5 X10^3/uL (2.0-7.7); Basophil# 0.05 X10^3/uL; Basophil% 0.4 % (0-1); Eosinophil# 0.07 X10^3/uL; Eosinophils% 0.6 % (0-5); Hematocrit 37.9 % (40-54); Hemoglobin 12.7 g/dL (13.0-16.5); Lymphocyte # 4.08 X10^3/ul (4.0); Lymphocyte % 33.1 % (19-41); Mean Corp Hgb Conc 33.5 g/dL (32-36); Mean Corpuscular Volume 101.6 fL (80-94); Mean Platelet Vol. 11.2 fl (6.2-12.0); Monocyte# 1.57 X10^3/uL; Monocyte% 12.8 % (0-10); NRBC Flagged by Analyzer 0 % (0-5); Neutrophil # 6.45 X10^3/uL (2.7-7.7); Neutrophil % 52.4 % (47-70); POSITIVE DIFFERENTIAL YES; Platelet Count 120 K/mm3 (150-450); RBC Distribution Width CV 13.9 % (11.6-14.6); RBC Distribution Width SD 51.4 fl (35.1-43.9); Red Blood Count 3.73 M/mm3 (4.6-6.2); White Blood Count 12.3 K/mm3 (4.4-11.0)
--- NOTE | 2019-10-17 05:50 | RAD_ITS ---
STUDY: X-RAY - ABDOMEN/PELVIS REASON FOR EXAM: Male, 64 years old. ILEUS TECHNIQUE: AP supine and upright views of the abdomen and pelvis. COMPARISON: Yesterday FINDINGS: EKG leads overlie the lower chest and upper abdomen. There has been overall improvement compared to the previous study. There remains evidence of a small bowel ileus in the central abdomen but the amount of distended small bowel loops has diminished as has the amount of retained stool in the colon. Continued follow-up recommended to assure resolution. There is no demonstrated free abdominal air. The visualized liver, spleen and kidneys are grossly normal in size and morphology. Normal soft tissue structures. Normal visualized osseous structures. RAD/Abdomen Single View (Portable) IMPRESSION: Overall improvement compared to the previous study. Continued follow-up recommended to assure resolution of the ileus. Electronically Signed: Dez Rawls MD at 7:59 EDT , Service support ,
[2019-10-17 05:53] LABS: Differential Indicated SCAN CRITERIA MET
--- NOTE | 2019-10-17 05:55 | EKG12_ITS ---
Test Reason : WEAKNESS Blood Pressure : / mmHG Vent. Rate : 070 BPM Atrial Rate : 070 BPM P-R Int : 198 ms QRS Dur : 084 ms QT Int : 398 ms P-R-T Axes : 037 -11 019 degrees QTc Int : 429 ms Normal sinus rhythm Nonspecific ST and T wave abnormality Abnormal ECG Confirmed by NATY OVERTON, DARREN ([id number]), electronic warfare officer MARKIE IBARRA ([id number]) on 10/21/2019 11:13:25 AM Referred By: Raymond Luz Confirmed By:DARREN ALFONSO MD
[2019-10-17 06:06] LABS: ALB/GLOB Ratio 0.6 RATIO (0.9-2.4); AST(SGOT) 49 U/L (15-37); Alanine Aminotransfer ALT/SGPT 22 U/L (16-61); Albumin, Serum 2.3 g/dL (3.2-5.0); Alkaline Phosphatase 50 U/L (45-117); Anion Gap 4 (5-15); BUN 28 mg/dL (7-18); BUN/Creat Ratio 33.4 RATIO (10-20); Calcium,Total 8.7 mg/dL (8.5-10.1); Chloride 108 mmol/L (98-107); Creatinine, Serum 0.84 mg/dL (0.70-1.30); EST Glomerular Filtration Rate 98 mL/min (>60); Est Glom Filt Rate - Afr Amer 119 mL/min (>60); Estimated Creatinine Clearance 92.94 ml/min; Globulin 3.7 g/dL (2.2-4.2); Glucose 79 mg/dL (74-106); Potassium 3.6 mmol/L (3.5-5.1); Sodium Level 140 mmol/L (136-145)
[2019-10-17 06:27] LABS: Valproic Acid (Depakene) Level 99 ug/mL (50-100)
[2019-10-17 06:40] LABS: Differential Comment SCANNED
[2019-10-17] MEDS: Enoxaparin 40 MG/0.4 ML Syringe SC (09:21)
[2019-10-17 10:42] LABS: Valproic Acid (Depakene) Level 89 ug/mL (50-100)
[2019-10-17 11:07] LABS: Pathologist Review Reviewed
[2019-10-17 11:08] LABS: Pathologist Review Reviewed
--- NOTE | 2019-10-17 11:10 | NURSING ---
This RN called and updated automotive heavy mechanic, Le at [facility] via phone.
[2019-10-17] MEDS: 0.9% Normal Saline 1,000 ML 75 ML IV (11:39)
--- NOTE | 2019-10-17 11:49 | PCM.PN.HOSP ---
Patient Problems: Active and Suspected Problems Cystitis (Acute) Valproic acid toxicity (Acute) Weakness (Acute) Reason for Visit: confusion Subjective: denies any pain Vitals/I&O's: Vital Signs Temp Pulse Resp BP Pulse Ox 36.6 C 67 18 107/59 L 93 10/17/19 09:19 10/17/19 09:19 10/17/19 09:19 10/17/19 09:19 10/17/19 09:19 Oxygen Flow Rate (L/min) 2 Oxygen Delivery Method Room Air Weight: 89.358 kg Body Mass Index (BMI) 28.3 Intake and Output for Last 24 Hours 10/15/19 10/16/19 10/17/19 23:59 23:59 23:59 Intake Total 2551.25 / 2551.25 981.25 / 981.25 Output Total 500 / 500 Balance 2551.25 / 2551.25 481.25 / 481.25 General: - - gravely voice. afebrile. interactive. HEENT: Atraumatic, Normocephalic Oral: Moist Mucosa, No Gingival or Mucosal Lesions/ Ulcerations Neck: No Nodes, Thyroid Normal Size and Texture Lungs: Clear to auscultation, Normal air movement, No rhonchi, No wheeze, No rales Cardiovascular: Regular rate, Regular Rhythm, Normal S1, Normal S2, No murmurs Abdomen: Bowel Sounds Present, Soft, Non Tender, Non-Distended, No Hepato-splenomegaly Extremities: No edema, No Calf Tenderness Skin: No rashes, No breakdown Psych/Mental Status: Normal Affect, Appropriate Microbiology Past 72 Hours 10/16/19 18:00 Urine, Catheterized Urine Culture - Preliminary GPC Poss Enterococcus sp Laboratory Results 10/16/19 16:40: WBC 13.7 H, RBC 4.25 L, Hgb 14.4, Hct 42.5, MCV 100.0 H, MCH 33.9 H, MCHC 33.9, RDW Std Deviation 51.2 H, RDW Coeff of Stephany 13.8, Plt Count 123 L, MPV 12.3 H, Immature Gran % (Auto) 0.700, Neut % (Auto) 53.3, Lymph % (Auto) 30.6, [place] % (Auto) 14.8 H, Eos % (Auto) 0.3, Baso % (Auto) 0.3, Absolute Neuts (auto) 7.3, Absolute Lymphs (auto) 4.18, Nucleated RBC % 0, Differential Comment SEE COMMENT, Diff Path Review Reviewed, Platelet Estimate SLT DEC, RBC Morphology N CHROM, Anisocytosis RARE, Macrocytosis RARE 10/16/19 16:40: Sodium Cancelled, Potassium Cancelled, Chloride Cancelled, Carbon Dioxide Cancelled, Anion Gap Cancelled, BUN Cancelled, Creatinine Cancelled, Estim Creat Clear Calc Cancelled, Est GFR (MDRD) Af Amer Cancelled, Est GFR (MDRD) Non-Af Cancelled, BUN/Creatinine Ratio Cancelled, Glucose Cancelled, Calcium Cancelled, Total Bilirubin Cancelled, AST Cancelled, ALT Cancelled, Alkaline Phosphatase Cancelled, Troponin I Cancelled, Total Protein Cancelled, Albumin Cancelled, Globulin Cancelled, Albumin/Globulin Ratio Cancelled 10/16/19 17:46: Valproic Acid 143 H 10/16/19 17:46: Sodium 138, Potassium 3.5, Chloride 103, Carbon Dioxide 31.0, Anion Gap 4 L, BUN 31 H, Creatinine 1.03, Estim Creat Clear Calc 75.80, Est GFR (MDRD) Af Amer 94, Est GFR (MDRD) Non-Af 78, BUN/Creatinine Ratio 30.1 H, Glucose 97, Calcium 9.8, Total Bilirubin 0.70, AST 50 H, ALT 26, Alkaline Phosphatase 61, Troponin I < 0.015, Total Protein 7.0, Albumin 2.9 L, Globulin 4.1, Albumin/Globulin Ratio 0.7 L 10/16/19 18:00: Urine Color Cierra, Urine Clarity Clear, Urine pH 6.0, Ur Specific [place] 1.020, Urine Protein 15 H, Urine Glucose (UA) Normal, Urine Ketones 15 H, Urine Occult Blood Negative, Urine Nitrite Negative, Urine Bilirubin 1 H, Urine Urobilinogen 1 H, Ur Leukocyte Esterase 100 H, Urine RBC 0 SEEN, Urine WBC 5-10 SEEN, Ur Squamous Epith Cells 0-5 SEEN, Urine Bacteria 0 SEEN, Urine Mucus 0 SEEN 10/16/19 18:55: Lactic Acid 1.9 10/16/19 22:05: Ammonia 25.0 10/16/19 22:05: Valproic Acid 130 H 10/16/19 22:05: Troponin I < 0.015 10/17/19 01:40: Troponin I < 0.015 10/17/19 03:44: Valproic Acid 100 10/17/19 03:44: Troponin I < 0.015 10/17/19 05:35: WBC 12.3 H, RBC 3.73 L, Hgb 12.7 L, Hct 37.9 L, MCV 101.6 H, MCH 34.0 H, MCHC 33.5, RDW Std Deviation 51.4 H, RDW Coeff of Stephany 13.9, Plt Count 120 L, MPV 11.2, Immature Gran % (Auto) 0.700, Neut % (Auto) 52.4, Lymph % (Auto) 33.1, [place] % (Auto) 12.8 H, Eos % (Auto) 0.6, Baso % (Auto) 0.4, Absolute Neuts (auto) 6.5, Absolute Lymphs (auto) 4.08, Nucleated RBC % 0, Differential Comment SCANNED, Diff Path Review Reviewed 10/17/19 05:35: Valproic Acid 99 10/17/19 05:35: Sodium 140, Potassium 3.6, Chloride 108 H, Carbon Dioxide 28.0, Anion Gap 4 L, BUN 28 H, Creatinine 0.84, Estim Creat Clear Calc 92.94, Est GFR (MDRD) Af Amer 119, Est GFR (MDRD) Non-Af 98, BUN/Creatinine Ratio 33.4 H, Glucose 79, Calcium 8.7, Total Bilirubin 0.40, AST 49 H, ALT 22, Alkaline Phosphatase 50, Total Protein 6.0 L, Albumin 2.3 L, Globulin 3.7, Albumin/Globulin Ratio 0.6 L 10/17/19 09:55: Valproic Acid 89 Current Medications Dextrose (D50w Syringe) 0 gm IV X1 PRN; Protocol PRN Reason: Hypoglycemia Docusate Sodium (Colace) 100 mg PO DAILY PRN PRN PRN Reason: Constipation Enoxaparin Sodium (Lovenox) 40 mg SC DAILY [facility] Last Admin: 10/17/19 09:21 Dose: 40 mg Documented by: Glucagon () 1 mg IM .X1 PRN PRN Reason: Hypoglycemia Sodium Chloride () 1,000 mls @ 75 mls/hr IV .[id number] [facility] Last Admin: 10/17/19 11:39 Dose: 75 mls/hr Documented by: Lamotrigine (Lamictal) 50 mg PO BID [facility] Last Admin: 10/17/19 09:59 Dose: Not Given Documented by: Lorazepam (Ativan) 2 mg IV X1 PRN PRN Reason: SEIZURES Sodium Chloride () 10 - 40 ml IV UD PRN PRN Reason: SALINE FLUSH Zonisamide (Zonegran) 100 mg PO DAILY [facility] Last Admin: 10/17/19 09:59 Dose: Not Given Documented by: STROKE Vital Signs/Narrative: Vital Signs Temp Pulse Resp BP Pulse Ox 10/17/19 09:19 36.6 C 67 18 107/59 L 93 Medical Necessity - Tobacco Use Smoking Status: Never smoker Tobacco Use: Non-smoker Assessment/Plan All Active Problems Cystitis (Acute) Valproic acid toxicity (Acute) Weakness (Acute) 1. encephalopathy unclear if valproic acid toxicity as level was 143 (toxicity seen generally with levels greater than 180). Now normal at 89. May be exacerbated by ileus unclear baseline appears to be resolved UTI ruled out (UCx noted, but UA unremarkable) 2. seizure disorder resume divalproex, but at 500 BID (instead of 500 in AM and 1000 in PM) continue zonisamide, lamotrigine 3. Ileus advance diet to clears 4. VTE prophylaxis: LMWH Inpatient E&M: 22221 [facility] Hosp L2
[2019-10-17] MEDS: Divalproex Sodium 250 MG Tablet 500 MG PO ×2 (12:45→16:09)
--- NOTE | 2019-10-17 13:30 | CASEMGMT ---
Social Work Pt is a current resident of [facility]. Phone call to Le at [facility] and update provided that pt is not ready for discharge today but possible over the weekend. They are able to accept pt back and can transport pt when ready for discharge. Discharge orders to be faxed to [facility] [phone] should he d/c over the weekend. Phone call to pt guardian and states office is closed for the day. Per Le at [facility], pt guardian is through [facility] and they have been notified of pt admission by [facility]. Plan: Return to [facility], when medically ready. EZE Brock
--- NOTE | 2019-10-17 13:35 | NURSING ---
This RN called and updated pt's intermediate RNVenecia via phone.
[2019-10-17] MEDS: lamoTRIgine 100 MG Tablet 50 MG PO (22:23)
[2019-10-18] MEDS: 0.9% Normal Saline 1,000 ML 75 ML IV (01:14)
[2019-10-18 03:05] VITALS: PULSE 64
[2019-10-18 04:20] VITALS: BP 142/77; PULSE 63; RESP 15; TEMP 36.6; O2SAT 93
[2019-10-18 08:58] VITALS: BP 115/89; PULSE 57; RESP 18; TEMP 36.1; O2SAT 94
[2019-10-18] MEDS: Enoxaparin 40 MG/0.4 ML Syringe SC (09:10)
[2019-10-18] MEDS: Zonisamide 50 MG Capsule 100 MG PO (09:10)
[2019-10-18] MEDS: Divalproex Sodium 250 MG Tablet 500 MG PO (09:10)
[2019-10-18] MEDS: lamoTRIgine 100 MG Tablet 50 MG PO (09:11)
[2019-10-18 10:00] VITALS: PULSE 70
--- NOTE | 2019-10-18 11:11 | DCINST_ITS ---
- Discharge Diagnoses Current Active Problems: Current Active and Chronic Problems Cystitis (Acute) Valproic acid toxicity (Acute) Weakness (Acute) You will use the following diet at home:: Cardiac Your food should be the consistency of: Regular Your liquids should be the consistency of: Regular/Thin Discharge Activity: Return to Normal Activity Allergies/Adverse Reactions: Allergies camphor [From Vicks Vaporub] Allergy (Verified 10/16/19 17:00) Other clobazam [From Onfi] Allergy (Verified 10/16/19 17:00) Other eucalyptus [From Vicks Vaporub] Allergy (Verified 10/16/19 17:00) Other eucalyptus oil [From Vicks Vaporub] Allergy (Verified 10/16/19 17:00) Other levetiracetam [From Keppra] Allergy (Verified 10/16/19 17:00) Other menthol [From Vicks Vaporub] Allergy (Verified 10/16/19 17:00) Other petrolatum,white [From Vicks Vaporub] Allergy (Verified 10/16/19 17:00) Other turpentine oil [From Vicks Vaporub] Allergy (Verified 10/16/19 17:00) Other Medications to take at Discharge Calcium (Elemental) [Os-Rick 500] 500 mg PO BID 10/17/13 Pyridoxine HCl [Vitamin B6] 100 mg PO DAILY 10/17/13 Docusate Sodium [Dok] 100 mg PO PRN PRN 10/13/19 Multivitamin/Iron/Folic Acid [Certavite-Antioxidant Tablet] 1 ea PO DAILY 10/13/19 Lamotrigine [Lamictal Xr] 100 mg PO DAILY 10/16/19 Zonisamide 100 mg PO DAILY 10/16/19 Divalproex Sodium [Depakote] 500 mg PO 0800,1700 tab 10/18/19 Primary Care Physician: Jesus Noble MD [Primary Care Provider] - Please follow up with your Primary Care Physician in: 1-2 weeks Test Results: Test results from this visit will be discussed in further detail at your follow- up appointment, if applicable. Proposed Discharge Date: 10/18/19
[2019-10-18 11:21] LABS: ALB/GLOB Ratio 0.6 RATIO (0.9-2.4); AST(SGOT) 46 U/L (15-37); Alanine Aminotransfer ALT/SGPT 22 U/L (16-61); Albumin, Serum 2.1 g/dL (3.2-5.0); Alkaline Phosphatase 50 U/L (45-117); Anion Gap 6 (5-15); BUN 15 mg/dL (7-18); BUN/Creat Ratio 20.2 RATIO (10-20); Calcium,Total 8.4 mg/dL (8.5-10.1); Chloride 109 mmol/L (98-107); Creatinine, Serum 0.74 mg/dL (0.70-1.30); EST Glomerular Filtration Rate 113 mL/min (>60); Est Glom Filt Rate - Afr Amer 137 mL/min (>60); Globulin 3.5 g/dL (2.2-4.2); Glucose 102 mg/dL (74-106); Potassium 3.4 mmol/L (3.5-5.1); Protein, Total 5.6 g/dL (6.4-8.2); Sodium Level 139 mmol/L (136-145)
[2019-10-18 11:28] LABS: Valproic Acid (Depakene) Level 79 ug/mL (50-100)
[2019-10-18 12:50] VITALS: BP 148/75; PULSE 74; RESP 16; TEMP 36.6; O2SAT 96
--- NOTE | 2019-10-18 13:06 | PCM.DC.SUM ---
<Brenton Duque - Last Filed: 10/18/19 13:06> Discharge Date and Diagnosis - Problem List Patient Problems: Active and Suspected Problems Cystitis (Acute) Valproic acid toxicity (Acute) Weakness (Acute) Date of Admission: 10/16/19 Date of Discharge: 10/18/19 - Primary Discharge Diagnosis Acute Problems: Active Problems Depakote toxicity Ileus resolved UTI ruled out Seizure disorder MRDD - Secondary Discharge Diagnosis Chronic Problems: Chronic Problems Hypertension (Chronic) High cholesterol (Chronic) Seizures (Chronic) Hospital Course and Treatment Imaging Results: CT/Brain/Head without Contrast IMPRESSION: Mild atrophy and periventricular white matter ischemic changes. No evidence for acute intracranial hemorrhage within the visualized portions of the brain however a portion of the right parietal lobe is not visualized due to suboptimal positioning. CT/Brain/Head without Contrast IMPRESSION: No evidence for acute bleed. Cannot exclude early infarct in the left temporal lobe.. MRI would be useful for more definitive evaluation if indicated. RAD/Shuntogram/Prec Placed Shunt IMPRESSION: No evidence for intraventricular shunt placement Other findings as above N.B. : The above information has been verbally conveyed by Nigel Dawson MD to Dr. En Osorio MD, on 10/16/2019 19:32:39 (ET). RAD/Abdomen Single View (Portable) IMPRESSION: Overall improvement compared to the previous study. Continued follow-up recommended to assure resolution of the ileus. Operations: None Procedures: None Summary of Care Provided: Hospital course: The patient is a 64 year old M with pmhx of MRDD, seizure disorder, who presented to the ER with c/o change in behavior notably weak, not eating, and not watching tv. He was found to have elevated depakote level and a shuntogram that showed mild ileus. His home depakote was decreased as he was felt to have depakote toxicity possibly exacerbated by ileus and he was admitted to the PCU on tele. He had a fairly unremarkable course. He was initially NPO and then following day advanced to a normal diet. He tolerated PO intake with no abdominal pain, nausea, or vomiting. His depakote level normalized, as did his behavior. He was discharged back to the correction in stable condition on the new dose of depakote. He will need follow up with his PCP in 1-2 weeks This patient was seen by Brenton Duque PA-C under the supervision of Doctor Cande. Patient Problems: Active and Suspected Problems Cystitis (Acute) Valproic acid toxicity (Acute) Weakness (Acute) - Physical Exam Vitals/I&O's: Vital Signs Temp Pulse Resp BP Pulse Ox 97.8 F 74 16 148/75 H 96 10/18/19 12:50 10/18/19 12:50 10/18/19 12:50 10/18/19 12:50 10/18/19 12:50 Oxygen Flow Rate (L/min) 2 Oxygen Delivery Method Room Air Weight: 197 lb 0.011 oz Body Mass Index (BMI) 28.3 Intake and Output for Last 24 Hours 10/16/19 10/17/19 10/18/19 23:59 23:59 23:59 Intake Total 2551.25 / 2551.25 1901.25 / 1901.25 2326.25 / 2326.25 Output Total 750 / 750 275 / 275 Balance 2551.25 / 2551.25 1151.25 / 1151.25 2051.25 / 205.25 General: Alert, Cooperative HEENT: Atraumatic, PERRLA, EOMI, Normocephalic Neck: Supple, No JVD, Negative Carotid Bruits Lungs: Clear to auscultation, Normal air movement Cardiovascular: Regular rate, No murmurs Abdomen: Bowel Sounds Present, Soft, Non Tender Extremities: No edema, Capillary Refill Less than 3 Seconds Skin: No rashes, No breakdown Musculoskeletal: No Tenderness to Palpation of Joints or Extremities Neurological: Cranial nerves II-XII grossly intact Psych/Mental Status: Normal Affect, Appropriate Microbiology Past 72 Hours 10/16/19 18:00 Urine, Catheterized Urine Culture - Final Staphylococcus epidermidis Laboratory Results 10/18/19 10:48: Sodium 139, Potassium 3.4 L, Chloride 109 H, Carbon Dioxide 24.0, Anion Gap 6, BUN 15, Creatinine 0.74, Estim Creat Clear Calc 105.50, Est GFR (MDRD) Af Amer 137, Est GFR (MDRD) Non-Af 113, BUN/Creatinine Ratio 20.2 H, Glucose 102, Calcium 8.4 L, Total Bilirubin 0.40, AST 46 H, ALT 22, Alkaline Phosphatase 50, Total Protein 5.6 L, Albumin 2.1 L, Globulin 3.5, Albumin/Globulin Ratio 0.6 L 10/18/19 10:48: Valproic Acid 79 Current Medications Dextrose (D50w Syringe) 0 gm IV X1 PRN; Protocol PRN Reason: Hypoglycemia Divalproex Sodium (Depakote) 500 mg PO 0800,1700 [facility] Last Admin: 10/18/19 09:10 Dose: 500 mg Documented by: Docusate Sodium (Colace) 100 mg PO DAILY PRN PRN PRN Reason: Constipation Enoxaparin Sodium (Lovenox) 40 mg SC DAILY [facility] Last Admin: 10/18/19 09:10 Dose: 40 mg Documented by: Glucagon () 1 mg IM .X1 PRN PRN Reason: Hypoglycemia Lamotrigine (Lamictal) 50 mg PO BID [facility] Last Admin: 10/18/19 09:11 Dose: 50 mg Documented by: Lorazepam (Ativan) 2 mg IV X1 PRN PRN Reason: SEIZURES Potassium Chloride (K-Dur) 40 meq PO X1 ONE Stop: 10/18/19 13:07 Sodium Chloride () 10 - 40 ml IV UD PRN PRN Reason: SALINE FLUSH Zonisamide (Zonegran) 100 mg PO DAILY [facility] Last Admin: 10/18/19 09:10 Dose: 100 mg Documented by: Discharge Diet: Low fat/ Low Cholesterol, 2000 mg Sodium Diet Discharge Activity: Return to Normal Activity Home Medications: Medications to take at Discharge Calcium (Elemental) [Os-Rick 500] 500 mg PO BID 10/17/13 Pyridoxine HCl [Vitamin B6] 100 mg PO DAILY 10/17/13 Docusate Sodium [Dok] 100 mg PO PRN PRN 10/13/19 Multivitamin/Iron/Folic Acid [Certavite-Antioxidant Tablet] 1 ea PO DAILY 10/13/19 Lamotrigine [Lamictal Xr] 100 mg PO DAILY 10/16/19 Zonisamide 100 mg PO DAILY 10/16/19 Divalproex Sodium [Depakote] 500 mg PO 0800,1700 tab 10/18/19 Primary Care Physician: Jesus Noble MD [Primary Care Provider] - Please follow up with your Primary Care Physician in: 1-2 weeks Disposition: Home Minutes spent on discharge:: 35 Patient Condition:: Stable Medical Necessity - Tobacco Use Smoking Status: Never smoker Tobacco Use: Non-smoker Meaningful Use Info Meaningful Use Diagnoses (Choose all that apply): None applicable <Ramesh Castellon - Last Filed: 10/18/19 14:17> Discharge Date and Diagnosis - Primary Discharge Diagnosis Acute Problems: Active Problems Cystitis (Acute) Valproic acid toxicity (Acute) Weakness (Acute) - Secondary Discharge Diagnosis Chronic Problems: Chronic Problems Hypertension (Chronic) High cholesterol (Chronic) Seizures (Chronic) Hospital Course and Treatment Operations: None Procedures: None Summary of Care Provided: Patient seen and examined independently. Data reviewed. I agree with the above note by the physician plumber's assistant. The patient is a 64 year old M presents with change in mental status. Patient's Depakote level was elevated at 143, though not in the toxic range. Patient was also found to have an ileus. Patient is MRDD and nurse to the patient's change in mental status may have been a combination of the ileus and elevated Depakote level though I cannot definitively say that this was a acute Depakote toxicity. Patient's Depakote level was held and to trend downwards. Patient was resumed back on Depakote 500 twice daily. Patient has been tolerating oral. Patient will be discharged to his correction in stable condition. [] - Physical Exam Vitals/I&O's: Vital Signs Temp Pulse Resp BP Pulse Ox 36.6 C 74 16 148/75 H 96 10/18/19 12:50 10/18/19 12:50 10/18/19 12:50 10/18/19 12:50 10/18/19 12:50 Oxygen Flow Rate (L/min) 2 Oxygen Delivery Method Room Air Weight: 89.358 kg Body Mass Index (BMI) 28.3 Intake and Output for Last 24 Hours 10/16/19 10/17/19 10/18/19 23:59 23:59 23:59 Intake Total 2551.25 / 2551.25 1901.25 / 190.25 2326.25 / 2325.25 Output Total 750 / 750 275 / 275 Balance 2551.25 / 2551.25 1151.25 / 1151.25 2050. / 2050. General: Alert, Cooperative HEENT: Atraumatic, Normocephalic Neck: No Nodes, Thyroid Normal Size and Texture Lungs: Clear to auscultation, Normal air movement, No rhonchi, No wheeze Cardiovascular: Regular rate, No murmurs Abdomen: Bowel Sounds Present, Non Tender Psych/Mental Status: Normal Affect, Appropriate Microbiology Past 72 Hours 10/16/19 18:00 Urine, Catheterized Urine Culture - Final Staphylococcus epidermidis Laboratory Results 10/18/19 10:48: Sodium 139, Potassium 3.4 L, Chloride 109 H, Carbon Dioxide 24.0, Anion Gap 6, BUN 15, Creatinine 0.74, Estim Creat Clear Calc 105.50, Est GFR (MDRD) Af Amer 137, Est GFR (MDRD) Non-Af 113, BUN/Creatinine Ratio 20.2 H, Glucose 102, Calcium 8.4 L, Total Bilirubin 0.40, AST 46 H, ALT 22, Alkaline Phosphatase 50, Total Protein 5.6 L, Albumin 2.1 L, Globulin 3.5, Albumin/Globulin Ratio 0.6 L 10/18/19 10:48: Valproic Acid 79 Current Medications Dextrose (D50w Syringe) 0 gm IV X1 PRN; Protocol PRN Reason: Hypoglycemia Divalproex Sodium (Depakote) 500 mg PO 0800,1700 [facility] Last Admin: 10/18/19 09:10 Dose: 500 mg Documented by: Docusate Sodium (Colace) 100 mg PO DAILY PRN PRN PRN Reason: Constipation Enoxaparin Sodium (Lovenox) 40 mg SC DAILY [facility] Last Admin: 10/18/19 09:10 Dose: 40 mg Documented by: Glucagon () 1 mg IM .X1 PRN PRN Reason: Hypoglycemia Lamotrigine (Lamictal) 50 mg PO BID [facility] Last Admin: 10/18/19 09:11 Dose: 50 mg Documented by: Lorazepam (Ativan) 2 mg IV X1 PRN PRN Reason: SEIZURES Sodium Chloride () 10 - 40 ml IV UD PRN PRN Reason: SALINE FLUSH Zonisamide (Zonegran) 100 mg PO DAILY [facility] Last Admin: 10/18/19 09:10 Dose: 100 mg Documented by: Discharge Diet: Low fat/ Low Cholesterol, 2000 mg Sodium Diet Discharge Activity: Return to Normal Activity Disposition: Home Minutes spent on discharge:: 35 Patient Condition:: Stable Medical Necessity - Tobacco Use Smoking Status: Never smoker Tobacco Use: Non-smoker Inpatient E&M: [id number] Disch Hosp
== END 2019-10-18 15:57 | disposition home or self-care (01) | DRG 861 ==
LOC: ED 17:46 → PCU 23:35
PROVIDERS: Admitting Provider Hospitalist; Emergency Provider Emergency Medicine; PCP Family Medicine; Referring Provider Hospitalist
DX: R41.82 Altered mental status, unspecified (principal); R53.1 Weakness; T42.6X5A Adverse effect of other antiepileptic and sedative-hypnotic drugs, initial encounter; K56.7 Ileus, unspecified; I10 Essential (primary) hypertension; E78.00 Pure hypercholesterolemia, unspecified; F72 Severe intellectual disabilities; G40.909 Epilepsy, unspecified, not intractable, without status epilepticus; Z79.899 Other long term (current) drug therapy
CPT/HCPCS: 36415; 70450; 72192; 74018; 75809; 80053; 80164; 81001; 82140; 83605; 84484; 85025; 87077; 87086; 87088; 87186; 92507; 92523; 93005; 97162; 97166; 97530; 99284; 99285; J7030; A4216; J3486

== ENCOUNTER 2019-10-20 12:34 | Day surgery (SDC) | payer MEDICAID, SELFPAY ==
[2019-10-16 21:42] VITALS: BMI 28.3
[2019-10-20] VITALS (15 sets, daily range): BP systolic 86–127; BP diastolic 45–73; PULSE 63–84; RESP 14–20; TEMP 36.3–37.1; O2SAT 92–99; BMI 30.4
--- NOTE | 2019-10-20 14:38 | US_ITS ---
We are attempting to reach an attending provider to discuss findings. An addendum with communication details will be sent when the communication is complete. STUDY: SCROTUM ULTRASOUND REASON FOR EXAM: Male, 64 years old. RT TESTICLE PAIN TECHNIQUE: Ultrasound evaluation of the scrotum was performed with color Doppler and static bashir-scale imaging. COMPARISON: None. FINDINGS: RIGHT TESTICLE INTRATESTICULAR: There is a normal size of the right testicle. The right testicle measures 4.5 x 3.4 x 3.2 cm. There is a heterogeneous echotexture. There is absent arterial and absent venous vascularity. There is no demonstrated right testicular mass or cyst. EXTRATESTICULAR: The epididymis is normal in size. The epididymis head measures 1.6 x 1.0 cm. There is decreased vascularity of the epididymis. There is no demonstrated epididymal cystic structure. There is no demonstrated hydrocele. There is no demonstrated varicocele. There is no demonstrated extratesticular mass or cyst. LEFT TESTICLE INTRATESTICULAR: There is a normal size of the left testicle. The left testicle measures 3.7 x 2.5 x 1.5 cm. There is a homogenous echotexture. There is normal arterial and normal venous vascularity. There is no demonstrated left testicular mass or cyst. EXTRATESTICULAR: The epididymis is normal in size. The epididymis head measures 0.5 x 0.4 cm. There is normal vascularity of the epididymis. There is no demonstrated epididymal cystic structure. There is no demonstrated hydrocele. There is no demonstrated varicocele. There is no demonstrated extratesticular mass or cyst. US/Testicular with Arterial Flow IMPRESSION: Right testicular torsion. Electronically Signed: Luciano Acevedo MD at 16:40 EDT Tel , Service support ,
[2019-10-20] MEDS: Morphine 4 MG/ML Syringe IV (15:10)
[2019-10-20 15:17] LABS: Absolute Lymphocyte Count 3.25 X10^3/uL (0.83-4.51); Absolute Neutrophil Count 5.8 X10^3/uL (2.0-7.7); Basophil% 0.9 % (0-1); Eosinophil# 0.09 X10^3/uL; Eosinophils% 0.8 % (0-5); Hematocrit 40.7 % (40-54); Hemoglobin 13.4 g/dL (13.0-16.5); Lymphocyte # 3.25 X10^3/ul (4.0); Lymphocyte % 29.3 % (19-41); Mean Corp Hgb Conc 32.9 g/dL (32-36); Mean Corpuscular Volume 100.2 fL (80-94); Mean Platelet Vol. 10.4 fl (6.2-12.0); Monocyte# 1.62 X10^3/uL; Monocyte% 14.6 % (0-10); NRBC Flagged by Analyzer 0 % (0-5); Neutrophil # 5.76 X10^3/uL (2.7-7.7); POSITIVE DIFFERENTIAL YES; Platelet Count 196 K/mm3 (150-450); RBC Distribution Width CV 14.3 % (11.6-14.6); RBC Distribution Width SD 52.5 fl (35.1-43.9); Red Blood Count 4.06 M/mm3 (4.6-6.2); White Blood Count 11.1 K/mm3 (4.4-11.0)
[2019-10-20 15:18] LABS: Differential Indicated SCAN CRITERIA MET
[2019-10-20 15:28] LABS: Anion Gap 5 (5-15); BUN 16 mg/dL (7-18); Calcium,Total 8.8 mg/dL (8.5-10.1); Chloride 107 mmol/L (98-107); Creatinine, Serum 0.84 mg/dL (0.70-1.30); EST Glomerular Filtration Rate 98 mL/min (>60); Est Glom Filt Rate - Afr Amer 119 mL/min (>60); Estimated Creatinine Clearance 87.08 ml/min; Glucose 111 mg/dL (74-106); Potassium 3.5 mmol/L (3.5-5.1); Sodium Level 142 mmol/L (136-145)
[2019-10-20 15:38] LABS: Lactic Acid 1.4 mmol/L (0.4-1.9)
[2019-10-20 15:42] LABS: Red Blood Cells-Urine 0 SEEN /hpf (0-5); White Blood Cells 0 SEEN /hpf (0-5)
[2019-10-20 15:46] LABS: Platelet Estimate ADEQUATE (ADEQ); Red Cell Morphology NORM C+C NORMAL (NORM C&C)
[2019-10-20 15:49] LABS: Color, Urine Yellow (Yellow); Glucose, Dipstick Normal (Normal); Ketone-Dipstick 5 mg/dl (Negative); Leukocyte Esterase-Dipstick Negative /ul (Negative); Nitrite-Dipstick Negative (Negative); Occult Blood-Urine Negative /ul (Negative); Protein-Dipstick Negative (Negative); Specific Gravity, Urine 1.015 (1.002-1.030); Urine Bilirubin Dipstick Negative (Negative); Urine Clarity Sl. Cloudy (Clear); Urine Urobilinogen 4 mg/dl (Normal)
[2019-10-20 16:02] LABS: Amorphous Sediment 1+; Mucous, Urine 1+ /hpf (<or=2+); Squamous Epithelial Cells - UA 0-5 SEEN /hpf (0-5)
[2019-10-20 16:03] LABS: Bacteria RARE /hpf (None Seen)
--- NOTE | 2019-10-20 17:36 | ED.VIS.GEN ---
History of Present Illness Chief Complaint: Male Pain/Injury Informant: - - pulmonary care nurse from [facility] Limited by: Dementia Onset: Today Narrative: Patient is a 64-year-old male presenting from [facility] for concern of redness and swelling of his right testicle. Patient was receiving a shower today when it was found that he had a very painful, red and swollen right testicle.Patient was admitted on 10/15, 4 days ago for change in behavior as well as not eating. He is having generalized weakness. Patient was also found to have an elevated valproic acid and an ileus. Urine culture was positive for staph epidermidis. Patient was discharged 2 days later as his valproic acid level normalized any improvement of his mentation. Since patient has been home to the [facility] he is continued to be less conversant and more withdrawn. He still not eating or drinking much. Patient currently does not have any complaints for me but does not contribute to his history either. Is noticed that for the past few days patient has been favoring his right leg they thought he was maybe having hip pain. Past Medical History - Allergies and Home Meds Allergies/Adverse Reactions: Allergies camphor [From Vicks Vaporub] Allergy (Verified 10/16/19 17:00) Other clobazam [From Onfi] Allergy (Verified 10/16/19 17:00) Other eucalyptus [From Vicks Vaporub] Allergy (Verified 10/16/19 17:00) Other eucalyptus oil [From Vicks Vaporub] Allergy (Verified 10/16/19 17:00) Other levetiracetam [From Keppra] Allergy (Verified 10/16/19 17:00) Other menthol [From Vicks Vaporub] Allergy (Verified 10/16/19 17:00) Other petrolatum,white [From Vicks Vaporub] Allergy (Verified 10/16/19 17:00) Other turpentine oil [From Vicks Vaporub] Allergy (Verified 10/16/19 17:00) Other Past Medical History: - - Seizure disorder, hypertension, hyperlipidemia, MRDD Surgical History: noncontributory, - - Intraventricular shunt placement Smoking Status: Never smoker - Family History Maternal Family History: Reports: - - Unable to obtain as patient is obtunded; and patient's attendant left. Paternal Family History: Reports: - - Unable to obtain as patient is obtunded; and patient's attendant left. Review of Systems General: Reports: Malaise. Denies: Chills, Fever Respiratory: Denies: Cough Gastrointestinal: Reports: - - Decreased appetite. Denies: Nausea, Vomiting Genitourinary: Reports: - - Right testicular pain and swelling. Denies: Hematuria, Frequency Musculoskeletal: Denies: Back pain, Extremity Pain Physical Exam Vital Signs/Narrative: Vital Signs Temp Pulse Resp BP Pulse Ox 10/20/19 15:32 76 20 H 117/70 96 10/20/19 15:30 98.3 F 76 20 H 127/66 H 97 Inital Vital Signs reviewed: Yes General: Well nourished, Well developed, No Acute Distress Head: Normocephalic, Atraumatic Eyes: Perrl, EOMI ENT: Moist mucous membranes, No rhinorrhea Neck: Supple, Nontender Cardiovascular: Regular rate, Regular rhythm, No murmurs Respiratory: No distress, CTA bilaterally, Chest nontender Abdomen: Soft, Nontender, Nondistended, Normal bowel sounds : - - Right testicle is elevated, erythematous and hard to palpation. Associated tenderness. No cremasteric reflex present. Left testicle appears normal. Normal penis. Back: Nontender, Normal Inspection Extremities: Nontender, No edema Skin: Normal color, No rash Neurological: Alert, Cranial nerves II-XII grossly intact, Normal Strength, Normal Sensation, Confused Psychological: Normal affect, Normal Mood Diagnostic/Tx/Re-eval Clinical Impression(s) from Imaging Studies Testicular Ultrasound 10/20/19 14:38 IMPRESSION: Right testicular torsion. Electronically Signed: Luciano Acevedo MD at 16:40 EDT Tel , Service support , ADDENDUM: 10/20/19 1710 IMPRESSION: Right testicular torsion. N.B. : The above information has been verbally conveyed by Luciano Acevedo MD to Margie Trent DO on 10/20/2019 17:03:22 (ET). Electronically Signed: Luciano Acevedo MD at 16:40 EDT Tel , Service support , Laboratory Data 10/20/19 10/20/19 10/20/19 15:05 15:05 15:05 WBC 11.1 H RBC 4.06 L Hgb 13.4 Hct 40.7 MCV 100.2 H MCH 33.0 H MCHC 32.9 RDW Std Deviation 52.5 H RDW Coeff of Stephany 14.3 Plt Count 196 MPV 10.4 Immature Gran % (Auto) 2.400 H Neut % (Auto) 52.0 Lymph % (Auto) 29.3 [place] % (Auto) 14.6 H Eos % (Auto) 0.8 Baso % (Auto) 0.9 Absolute Neuts (auto) 5.8 Absolute Lymphs (auto) 3.25 Nucleated RBC % 0 Differential Comment Diff Path Review May foll Platelet Estimate ADEQUATE RBC Morphology NORM C+C Sodium 142 Potassium 3.5 Chloride 107 Carbon Dioxide 30.0 Anion Gap 5 BUN 16 Creatinine 0.84 Estim Creat Clear Calc 87.08 Est GFR (MDRD) Af Amer 119 Est GFR (MDRD) Non-Af 98 BUN/Creatinine Ratio 19.0 Glucose 111 H Lactic Acid 1.4 Calcium 8.8 Urine Color Urine Clarity Urine pH Ur Specific [place] Urine Protein Urine Glucose (UA) Urine Ketones Urine Occult Blood Urine Nitrite Urine Bilirubin Urine Urobilinogen Ur Leukocyte Esterase Urine RBC Urine WBC Ur Squamous Epith Cells Amorphous Sediment Urine Bacteria Urine Mucus 10/20/19 15:30 WBC RBC Hgb Hct MCV MCH MCHC RDW Std Deviation RDW Coeff of Stephany Plt Count MPV Immature Gran % (Auto) Neut % (Auto) Lymph % (Auto) [place] % (Auto) Eos % (Auto) Baso % (Auto) Absolute Neuts (auto) Absolute Lymphs (auto) Nucleated RBC % Differential Comment Diff Path Review Platelet Estimate RBC Morphology Sodium Potassium Chloride Carbon Dioxide Anion Gap BUN Creatinine Estim Creat Clear Calc Est GFR (MDRD) Af Amer Est GFR (MDRD) Non-Af BUN/Creatinine Ratio Glucose Lactic Acid Calcium Urine Color Yellow Urine Clarity Sl. Cloudy Urine pH 8.0 Ur Specific [place] 1.015 Urine Protein Negative Urine Glucose (UA) Normal Urine Ketones 5 H Urine Occult Blood Negative Urine Nitrite Negative Urine Bilirubin Negative Urine Urobilinogen 4 H Ur Leukocyte Esterase Negative Urine RBC 0 SEEN Urine WBC 0 SEEN Ur Squamous Epith Cells 0-5 SEEN Amorphous Sediment 1+ Urine Bacteria RARE Urine Mucus 1+ - Medical Decision Making Is evaluated for redness pain and swelling of his right testicle. It was noticed by caregiver today but is not clear how long this is been going on. Patient has been acting strangely for the past few days is been more withdrawn. He is MRDD so he is an unreliable historian. I question of patient has had testicular pain is been causing his presentation that is had not been noticed until today. It is on clear exactly how long this is been going on or if this is been an intermittent process. Hemodynamically patient is stable. He has normal lactate. Does not have any significant laboratory abnormalities. Ultrasound is concerning for right testicular torsion. Fits patient's clinical picture. I did call urology on-call who initially said he would take him emergently to the OR. He then called back to say that the OR was currently full and is to could not get the patient to the OR emergently we should transfer the patient. I attempted to transfer the patient to [facility] however there was a delay in hearing back from the transfer line. I also was informed that physical transportation would be at least another 2 to 3 hours. I recontacted the OR and urology who stated at this point we could just take him to our OR now. I believe this will provide the fastest definitive care for the patient. Patient does seem much improved with morphine that he received in the emergency room. Dr. Mckeon will contact the patient's guardian, state appointed, for consent. Caregiver in the room is aware of plan. ED Disposition - Plan for ED Patient: Disposition: Acute Care Hospital [facility] Diagnosis: Right testicular torsion
--- NOTE | 2019-10-20 18:55 | TEST_PTH ---
PATIENT: JESUS SHAVER LOC: [facility] [place] U#:[id number] AGE/SX: 64/M ROOM: RE10/20/[address]: Dr. Kamaljit Mckeon MD : [id number] BED: DIS: 10/20/2019 SPEC #: [id number] RECD: 10/21/19 07:12 STATUS: YUNIEL REVladimir #: [id number] MEL: 10/20/19 18:[address]: Kamaljit Mckeon DEPT: SURGICAL PATHOLOGY RECD BY: Ciro Marcus ENTERED: 10/21/19 09:47 SP TYPE: TESTICLE OTHR DR: Dr. Jesus Noble MD Tissues: Testis, NOS Procedures: Surgery Specimen Level HEADER OPERATION: Orchiectomy, scrotal PRE-OP DIAGNOSIS: Right testicular torsion TISSUE SUBMITTED: Right testicle MICROSCOPIC DIAGNOSIS Right testis, radical orchiectomy: Hemorrhagic infarction. AM:lizy 10/22/19 COMMENT Case has been reviewed in consultation with Dr. Manning who concurs with the above diagnosis. IDC:[id number] MICROSCOPIC DESCRIPTION Slides are reviewed. GROSS DESCRIPTION Received in fixative is one container labeled with the patient's name and designated right testicle. The specimen consists of a testicle and epididymis weighing 43.7 gm. The testicle measures 5.5 x 5.5 x 2.5 cm. The epididymis measures 4 x 1.5 x 1 cm. No obvious spermatic cord is identified. The external surface of testicle and epididymis is congested. The specimen is inked as follows: resection margin - black, rest of the surface - blue. Sections reveal congested and hemorrhagic cut surfaces. Cow Trimmer sections are submitted in six cassettes as follows: 1 - resection margin, 2 - epididymis, 36 - testicle. / WERO:lizy 10/21/19 TC:5 CPT: 84232
--- NOTE | 2019-10-20 19:02 | PCM.DC.URO ---
Discharge Diet: No Restrictions Discharge Activity: Return to Normal Activity Additional Activity Instructions:: scrotal support. Okay to shower, do not sit in water. Call your doctor if your incision/area has: Sudden Increased Bleeding Call your doctor if you observe: Fever of 101 or Higher Allergies/Adverse Reactions: Allergies camphor [From Vicks Vaporub] Allergy (Verified 10/16/19 17:00) Other clobazam [From Onfi] Allergy (Verified 10/16/19 17:00) Other eucalyptus [From Vicks Vaporub] Allergy (Verified 10/16/19 17:00) Other eucalyptus oil [From Vicks Vaporub] Allergy (Verified 10/16/19 17:00) Other levetiracetam [From Keppra] Allergy (Verified 10/16/19 17:00) Other menthol [From Vicks Vaporub] Allergy (Verified 10/16/19 17:00) Other petrolatum,white [From Vicks Vaporub] Allergy (Verified 10/16/19 17:00) Other turpentine oil [From Vicks Vaporub] Allergy (Verified 10/16/19 17:00) Other Medications to take at Discharge Calcium (Elemental) [Os-Rick 500] 500 mg PO BID 10/17/13 Pyridoxine HCl [Vitamin B6] 100 mg PO DAILY 10/17/13 Docusate Sodium [Dok] 100 mg PO PRN PRN 10/13/19 Multivitamin/Iron/Folic Acid [Certavite-Antioxidant Tablet] 1 ea PO DAILY 10/13/19 Lamotrigine [Lamictal Xr] 100 mg PO DAILY 10/16/19 Zonisamide 100 mg PO DAILY 10/16/19 Divalproex Sodium [Depakote] 500 mg PO 0800,1700 tab 10/18/19 Cephalexin [Keflex] 500 mg PO TID #21 cap 10/20/19 Hydrocodone/Acetaminophen [[place] 5-325 Tablet] 1 - 2 ea PO Q4H PRN PRN 5 Days #20 tab 10/20/19 The following prescriptions were given: Cephalexin [Keflex] 500 mg PO TID #21 cap Prescription Printed Hydrocodone/Acetaminophen [[place] 5-325 Tablet] 1 - 2 ea PO Q4H PRN PRN 5 Days #20 tab PRN Reason: Pain Or Fever Prescription Printed Primary Care Physician: Jesus Noble MD [Primary Care Provider] - Test Results: Test results from this visit will be discussed in further detail at your follow-up appointment, if applicable. Please Follow Up With: Kamaljit Mckeon MD When: in 2 weeks, please call to make an appointment.
--- NOTE | 2019-10-20 19:03 | HP.PCM_ITS ---
History of Present Illness Date of Admission: 10/20/19 Chief Complaint: Right testicle pain torsion The patient is a 64 year old male who was having a lot of discomfort and pain but he lives in a intermediate is been in the ER several times a still can identify the problem and finally the testicle became hardened and swollen on the right side ultrasound was done with demonstrated no flow to the testicle impossible to tell how long the testicle has been first but given his presentation probably most likely it is a necrotic testicle at this point but will proceed with immediate exploration. RIGHT TESTICLE INTRATESTICULAR: There is a normal size of the right testicle. The right testicle measures 4.5 x 3.4 x 3.2 cm. There is a heterogeneous echotexture. There is absent arterial and absent venous vascularity. There is no demonstrated right testicular mass or cyst. EXTRATESTICULAR: The epididymis is normal in size. The epididymis head measures 1.6 x 1.0 cm. There is decreased vascularity of the epididymis. There is no demonstrated epididymal cystic structure. There is no demonstrated hydrocele. There is no demonstrated varicocele. There is no demonstrated extratesticular mass or cyst. LEFT TESTICLE INTRATESTICULAR: There is a normal size of the left testicle. The left testicle measures 3.7 x 2.5 x 1.5 cm. There is a homogenous echotexture. There is normal arterial and normal venous vascularity. There is no demonstrated left testicular mass or cyst. EXTRATESTICULAR: The epididymis is normal in size. The epididymis head measures 0.5 x 0.4 cm. There is normal vascularity of the epididymis. There is no demonstrated epididymal cystic structure. There is no demonstrated hydrocele. There is no demonstrated varicocele. There is no demonstrated extratesticular mass or cyst. 10/20/19 1640 Date cc: Dr. Margie Trent DO; Dr. Jesus Noble MD ~* Signed ADDENDUM by Dr. Luciano Acevedo MD on 10/20/19 at 1640 US/Testicular with Arterial Flow IMPRESSION: Right testicular torsion. Past Medical History Past Medical History (Chronic Problems): Chronic Problems Hypertension (Chronic) High cholesterol (Chronic) Seizures (Chronic) Allergies camphor [From Vicks Vaporub] Allergy (Verified 10/16/19 17:00) Other clobazam [From Onfi] Allergy (Verified 10/16/19 17:00) Other eucalyptus [From Vicks Vaporub] Allergy (Verified 10/16/19 17:00) Other eucalyptus oil [From Vicks Vaporub] Allergy (Verified 10/16/19 17:00) Other levetiracetam [From Keppra] Allergy (Verified 10/16/19 17:00) Other menthol [From Vicks Vaporub] Allergy (Verified 10/16/19 17:00) Other petrolatum,white [From Vicks Vaporub] Allergy (Verified 10/16/19 17:00) Other turpentine oil [From Vicks Vaporub] Allergy (Verified 10/16/19 17:00) Other Home Medications: Ambulatory Orders Medication Instructions Recorded Calcium (Elemental) [Os-Rick 500] 500 mg PO BID 10/17/13 Pyridoxine HCl [Vitamin B6] 100 mg PO DAILY 10/17/13 Docusate Sodium [Dok] 100 mg PO PRN PRN 10/13/19 Multivitamin/Iron/Folic Acid 1 ea PO DAILY 10/13/19 [Certavite-Antioxidant Tablet] Lamotrigine [Lamictal Xr] 100 mg PO DAILY 10/16/19 Zonisamide 100 mg PO DAILY 10/16/19 Divalproex Sodium [Depakote] 500 mg PO 0800,1700 tab 10/18/19 Cephalexin [Keflex] 500 mg PO TID #21 cap 10/20/19 Hydrocodone/Acetaminophen [[place] 1 - 2 ea PO Q4H PRN PRN 5 Days #20 10/20/19 5-325 Tablet] tab Surgical History: noncontributory, - - Intraventricular shunt placement Smoking Status: Never smoker - *Family History Maternal History Items: - - Unable to obtain as patient is obtunded; and patient's attendant left. Paternal History Items: - - Unable to obtain as patient is obtunded; and patient's attendant left. VTE Information - Inpt Only VTE Present on Admission: No Patient Problems: Active and Suspected Problems Right testicular torsion (Acute) Objective: Unable to do exam patient uncooperative - Physical Exam Vitals/I&O's: Vital Signs Temp Pulse Resp BP Pulse Ox 97.6 F L 84 16 98/60 97 10/20/19 18:11 10/20/19 18:11 10/20/19 18:11 10/20/19 18:11 10/20/19 18:11 Oxygen Delivery Method Room Air Weight: 90.8 kg Body Mass Index (BMI) 30.4 Laboratory Results 10/20/19 15:05: WBC 11.1 H, RBC 4.06 L, Hgb 13.4, Hct 40.7, MCV 100.2 H, MCH 33.0 H, MCHC 32.9, RDW Std Deviation 52.5 H, RDW Coeff of Stephany 14.3, Plt Count 196, MPV 10.4, Immature Gran % (Auto) 2.400 H, Neut % (Auto) 52.0, Lymph % (Auto) 29.3, Petroleum % (Auto) 14.6 H, Eos % (Auto) 0.8, Baso % (Auto) 0.9, Absolute Neuts (auto) 5.8, Absolute Lymphs (auto) 3.25, Nucleated RBC % 0, Differential Comment , Diff Path Review May foll, Platelet Estimate ADEQUATE, RBC Morphology NORM C+C 10/20/19 15:05: Sodium 142, Potassium 3.5, Chloride 107, Carbon Dioxide 30.0, Anion Gap 5, BUN 16, Creatinine 0.84, Estim Creat Clear Calc 87.08, Est GFR (MDRD) Af Amer 119, Est GFR (MDRD) Non-Af 98, BUN/Creatinine Ratio 19.0, Glucose 111 H, Calcium 8.8 10/20/19 15:05: Lactic Acid 1.4 10/20/19 15:30: Urine Color Yellow, Urine Clarity Sl. Cloudy, Urine pH 8.0, Ur Specific [place] 1.015, Urine Protein Negative, Urine Glucose (UA) Normal, Urine Ketones 5 H, Urine Occult Blood Negative, Urine Nitrite Negative, Urine Bilirubin Negative, Urine Urobilinogen 4 H, Ur Leukocyte Esterase Negative, Urine RBC 0 SEEN, Urine WBC 0 SEEN, Ur Squamous Epith Cells 0-5 SEEN, Amorphous Sediment 1+, Urine Bacteria RARE, Urine Mucus 1+ Assessment/Plan All Active Problems Cystitis (Acute) Valproic acid toxicity (Acute) Weakness (Acute) Right testicular torsion (Acute) 64-year-old male presented to the emergency room from a intermediate with varying pains nonspecific symptoms but on exam was found to have a hard right testicle ultrasound demonstrated no flow suspected torsion impossible to tell how long it is been going on but given the presentation we can proceed with mid exploration I did tell the caregiver that is most likely had the testicle prior to proceed with orchiectomy and orchiopexy in the other side. I did obtain consent from the intermediate point of care on the chart.
[2019-10-20] MEDS: Bupivacaine Mpf 0.5% 30 ML VIAL (19:12)
--- NOTE | 2019-10-20 19:28 | PCM.OPRPT ---
Report of Operation Date of Procedure: 10/20/19 Pre-Operative Diagnosis: Right testicular torsion, left undescended testicle Post-Operative Diagnosis: Same Surgery/Procedure Performed:: Right scrotal orchiectomy Description of Surgical Findings:: 64-year-old male was taken back to the operating room at the smooth induction of general anesthesia he was placed supine on the table the scrotum and penis and testicles were prepped and draped in usual sterile fashion and examination the right testicle is hard and swollen, left testicle was not palpable in the scrotum but was palpable in the left inguinal canal. We infiltrated the midline raphae of the scrotum with lidocaine he was prepped and draped in the usual sterile fashion, made an incision into the right hemiscrotum, went into the tunica albuginea and immediately encountered a necrotic testicle that was twisted 360 degrees around the spermatic cord. I then placed 2 clamps of the spermatic cord and transected the testicle and remove the testicle and then suture ligated the spermatic cord. I infiltrated the scrotum then with Marcaine. I then closed the scrotum in 2 layers with chromic stitches. I was not able to do orchiopexy on the contralateral left testicle since it was an inguinal testicle high up in inguinal canal and was not reachable via the scrotal incision. Patient scrotum was closed in 2 layers with chromic stitches left and dressings were placed was taken back to PACU in good condition he would be discharged home with antibiotics and pain medicine. Type of Anesthesia:: General - Admit VTE Documentation VTE Present on Admission: No VTE Mechan Device Prophylaxis: SCD's
[2019-10-20] MEDS: Cefazolin 2 GM in 0.9% Normal Saline 100 ML IV (19:38)
[2019-10-20] MEDS: Ketorolac 15 MG/ML Vial IV (20:22)
--- NOTE | 2019-10-20 20:40 | SUR.PHASEI ---
Addendum entered by Judith Donnelly 10/20/19 21:16: DR GONZALEZ NOTIFIED OF PATIENT REFUSAL TO VOID. CALLED DR GONZALEZ WHO STATES HE DOES NOT NEED TO VOID PRIOR TO D/C HOME. Original Note: DENIES PAIN OR NAUSEA. COOPERATIVE, CALM, TAKING PO W/O DIFFICULTY. PER LONG-TERM WINDOW DISPLAY DESIGNER, PATIENT WILL NOT VOID ON COMMAND, WILL HOLD IT FOR HOURS, THEN PINCH THE GLANS TO AVOID URINATING.
[2019-10-23 10:20] LABS: Pathologist Review Reviewed
== END 2019-10-20 21:27 | disposition home or self-care (01) ==
LOC: ED 16:44 → SDC 18:17 → ACINP 18:18 → AC 19:02
PROVIDERS: Emergency Provider Emergency Medicine; PCP Family Medicine; Visit Provider Urology
PROC: (CPT 54600; principal; 2019-10-20 17:05)
DX: N44.00 Torsion of testis, unspecified (principal); Q53.13 Unilateral high scrotal testis; I10 Essential (primary) hypertension; E78.00 Pure hypercholesterolemia, unspecified; F03.90 Unspecified dementia, unspecified severity, without behavioral disturbance, psychotic disturbance, mood disturbance, and anxiety; F79 Unspecified intellectual disabilities; G40.909 Epilepsy, unspecified, not intractable, without status epilepticus; Z79.899 Other long term (current) drug therapy
CPT/HCPCS: 54520; 76870; 80048; 81001; 83605; 85025; 88309; 93976; 99285; J7030; J7120; A4216; J2405

== ENCOUNTER 2019-10-21 14:21 | Emergency (ER) | payer MEDICAID, SELFPAY ==
[2019-10-20 17:35] VITALS: BMI 30.4
[2019-10-21 14:23] VITALS: BP 100/58; PULSE 74; RESP 16; TEMP 36.8; O2SAT 95; BMI 31.0
--- NOTE | 2019-10-21 14:31 | RAD_ITS ---
STUDY: X-RAY - ACUTE ABDOMINAL SERIES REASON FOR EXAM: Male, 64 years old. CONSTIPATION TECHNIQUE: Single view of the chest. Supine, and erect view(s) of the abdomen were obtained. COMPARISON: 10/17/2015 FINDINGS: Electronic device in the left side of the chest. The lungs are clear and expanded. Elevated right hemidiaphragm. Normal size heart. Normal mediastinum and eliot. Normal visualized pulmonary arteries. Normal visualized aortic arch and descending thoracic aorta. There is an abundance of fecal material throughout the colon. The soft tissue structures of the abdomen and pelvis are unremarkable. Normal visualized osseous structures. RAD/Acute Abdomen Inc Chest IMPRESSION: 1. No active pulmonary disease. 2. Suspect constipation. 3. No pneumoperitoneum. Electronically Signed: Luciano Acevedo MD at 15:45 EDT Tel , Service support ,
--- NOTE | 2019-10-21 14:33 | ED.VISSUMM ---
- ER Visit Summary Date of Service: 10/21/19 Chief Complaint: Urinary retention History of Present Illness: The patient is a 64 M who presents with urinary retention since yesterday. Patient had surgery for testicular torsion. Patient had orchiectomy performed by Dr. Mckeon. Patient was unable to void since yesterday. snf staff attempted to place Garland catheter twice but did not have any urine returned. Staff also states the patient has not had a bowel movement for the past 2 days. Patient denies any abdominal pain. Staff denies any fevers or chills. Patient denies any back pain. Staff denies any nausea or vomiting. Physical Examination: Vital signs are stable. Patient is afebrile. Patient is in no acute distress. Oral mucosa is pink and moist. Neck is supple. Trachea is midline. There is no JVD. Heart was regular rate and rhythm. Lungs are clear and equal bilaterally. Abdomen is soft. Bowel sounds are normal. There is no tenderness. exam shows healing incision on the scrotum. There is no erythema or warmth. There is no discharge or drainage. There is no induration. Cranial nerves II through XII are grossly intact. There are no focal motor or sensory deficits. Test Results: Urinalysis was obtained. Leukocyte esterase was 25 with positive nitrates and 1+ bacteria. There were 0-5 white blood cells. Acute abdominal x-rays were obtained. There is no bowel obstruction. There is some stool throughout the colon. These were interpreted by myself and the radiologist. Emergency Department Course and Treatment: Bladder scanner showed 364 mL's of urine in the bladder. Garland catheter was ordered. As the nurses were preparing to place the Garland catheter the patient voided on his own. He voided almost 200 cc of urine. Urine culture was sent. Patient was given a dose of Bactrim here. Patient was given a prescription for Bactrim. Patient was instructed to follow-up with his primary care physician in 5 to 7 days. Patient was also instructed to follow-up with Dr. Mckeon as scheduled. Patient understood and was agreeable with the plan. All questions were answered. Disposition: Discharge back to [facility] Impression: 1. Urinary tract infection This note was generated with [employer] software. It may contain incorrect words, spelling, and punctuation that were not noted in review of the chart prior to signing ED Disposition - Plan for ED Patient: Disposition: [facility] Facility Diagnosis: Urinary tract infection Instructions: ED CYSTITIS Male Adult Prescriptions: Smz/Tmp Ds [Bactrim Ds] 1 tab PO BID #6 tab Prescription Printed Referrals: Jesus Noble MD [Primary Care Provider] - 5-7 Days Kamaljit Mckeon MD [STAFF PHYSICIAN] - Keep [facility] appointment
[2019-10-21 14:52] LABS: Red Blood Cells-Urine 0 SEEN /hpf (0-5)
[2019-10-21 14:57] LABS: Color, Urine Yellow (Yellow); Glucose, Dipstick Normal (Normal); Ketone-Dipstick 5 mg/dl (Negative); Leukocyte Esterase-Dipstick 25 /ul (Negative); Nitrite-Dipstick Positive (Negative); Occult Blood-Urine Negative /ul (Negative); Protein-Dipstick 30 mg/dl (Negative); Urine Clarity Sl. Cloudy (Clear); Urine Urobilinogen 4 mg/dl (Normal)
[2019-10-21 14:59] LABS: Urine Bilirubin Dipstick 1 mg/dL (Negative)
[2019-10-21 15:02] LABS: Bacteria 1+ /hpf (None Seen); Mucous, Urine 2+ /hpf (<or=2+); Squamous Epithelial Cells - UA 0-5 SEEN /hpf (0-5); White Blood Cells 0-5 SEEN /hpf (0-5)
[2019-10-21] MEDS: Smz/Tmp Ds Tablet 1 TABLET PO (15:43)
[2019-10-21 16:13] VITALS: RESP 18
== END 2019-10-21 16:13 | disposition skilled nursing facility (03) ==
PROVIDERS: Emergency Provider Emergency Medicine; PCP Family Medicine
DX: N39.0 Urinary tract infection, site not specified (principal); K59.00 Constipation, unspecified
CPT/HCPCS: 74022; 81001; 87086; 87088; 99284

== ENCOUNTER 2019-10-23 19:30 | Emergency (ER) | payer MEDICAID, SELFPAY ==
[2019-10-23 19:33] VITALS: BP 110/67; PULSE 70; RESP 19; TEMP 36.6; O2SAT 93; BMI 32.8
--- NOTE | 2019-10-23 20:23 | ED.DCSUM_ITS ---
History of Present Illness Chief Complaint: Wound Check Informant: - - caregiver Onset: Today Narrative: Patient from detention here with caregiver for evaluation of wound to the scrotum. He status post right orchiectomy secondary to testicular torsion performed a week ago. Was performed by Dr. Montano, has an upcoming urology follow-up. Caregiver states nursing has stopped dressing changes was told to use the scrotal support. However patient has declined using urinals or getting up to go to the bathroom therefore that he has been wearing a depends. There is been no drainage or fevers. He states right scrotum is more red today and concerns of blister on the left side. There is been no fevers. Patient denies any pain. Pain controlled with hydrocodone with last dose prior to arrival. Prior similar symptoms: No Past Medical History - Allergies and Home Meds Allergies/Adverse Reactions: Allergies camphor [From Vicks Vaporub] Allergy (Verified 10/23/19 19:32) Other clobazam [From Onfi] Allergy (Verified 10/23/19 19:32) Other eucalyptus [From Vicks Vaporub] Allergy (Verified 10/23/19 19:32) Other eucalyptus oil [From Vicks Vaporub] Allergy (Verified 10/23/19 19:32) Other levetiracetam [From Keppra] Allergy (Verified 10/23/19 19:32) Other menthol [From Vicks Vaporub] Allergy (Verified 10/23/19 19:32) Other petrolatum,white [From Vicks Vaporub] Allergy (Verified 10/23/19 19:32) Other turpentine oil [From Vicks Vaporub] Allergy (Verified 10/23/19 19:32) Other Primary Care Physician: Jesus Noble MD [Primary Care Provider] - Past Medical History: - - Seizure history, hypertension, hypercholesterolemia Surgical History: noncontributory, - - Intraventricular shunt placement Smoking Status: Never smoker - Family History Maternal Family History: Reports: - - Unable to obtain as patient is obtunded; and patient's attendant left. Paternal Family History: Reports: - - Unable to obtain as patient is obtunded; and patient's attendant left. Review of Systems General: Denies: Chills, Fever, Sweats Eyes: Denies: Visual changes - bilaterally, Diplopia ENT: Denies: Rhinorrhea, Sore throat Cardiovascular: Denies: Chest pain, Palpitations Respiratory: Denies: Dyspnea, Cough, Dyspnea on exertion Gastrointestinal: Denies: Abdominal pain, Nausea, Vomiting, Diarrhea, Melena, Hematochezia Genitourinary: Denies: Dysuria, Hematuria, Frequency Musculoskeletal: Reports: Back pain, Extremity Pain Skin: Reports: Rash, Wounds Neurological: Reports: Headache, Weakness, Numbness Physical Exam Vital Signs/Narrative: Vital Signs Temp Pulse Resp BP Pulse Ox 10/23/19 19:33 97.8 F 70 19 H 110/67 93 Inital Vital Signs reviewed: Yes General: Well nourished, Well developed, No Acute Distress Head: Normocephalic, Atraumatic, - - Patient wearing a safety helmet. Eyes: Perrl, EOMI ENT: Moist mucous membranes, No rhinorrhea Neck: Supple, Nontender Cardiovascular: Regular rate, Regular rhythm, No murmurs Respiratory: No distress, CTA bilaterally, Chest nontender Abdomen: Soft, Nontender, Nondistended, Normal bowel sounds : - - Scrotal exam, vertical incision right scrotum with no drainage or tenderness. There is still induration of right scrotum with erythema. There is a small nodule left outer scrotum with no active drainage and nontender to palpation. Back: Nontender, Normal Inspection Extremities: Nontender, No edema Skin: Normal color, No rash Neurological: Alert, Normal Strength, - Psychological: Normal affect, Normal Mood Diagnostic/Tx/Re-eval - Medical Decision Making Patient vital signs stable, afebrile. Exam there is some erythema of the scrotum, I am concerned of irritation from friction, currently no dressing changes by nursing. There is no drainage, he is afebrile. He also wearing depends when urinating. Discussed with caregiver, wound care. Wound will be cleansed in the emergency department bacitracin dressing will be placed. This should be performed twice a day. They will monitor for any drainage or fevers or pain to return. Otherwise they will keep follow-up with urology. All questions were answered. ED Disposition - Plan for ED Patient: Disposition: Home or Assisted Living Diagnosis: Visit for wound check, Status post right orchiectomy Instructions: ED Wound Care Referrals: Jesus Noble MD [Primary Care Provider] - Kamaljit Mckeon MD [STAFF PHYSICIAN] - [facility] appointment
[2019-10-23] MEDS: BACITRACIN 15 GM Tube 1 APPLIC TOPICAL (20:40)
--- NOTE | 2019-10-23 20:40 | NURSING ---
INCONT PROTOCOL APPLIED. [facility] BRINGING NEW [facility]JAM[facility] FOR PT. NEW SUSPENSORY PROVIDED.
== END 2019-10-23 21:00 | disposition home or self-care (01) ==
PROVIDERS: Emergency Provider Emergency Medicine; PCP Family Medicine
DX: Z48.01 Encounter for change or removal of surgical wound dressing (principal); I10 Essential (primary) hypertension; G40.909 Epilepsy, unspecified, not intractable, without status epilepticus; G93.81 Temporal sclerosis; E78.00 Pure hypercholesterolemia, unspecified
CPT/HCPCS: 99282

== ENCOUNTER → 2019-11-10 09:33 | Outpatient (CLI) | payer MEDICAID, SELFPAY ==
[2019-10-23 19:33] VITALS: BMI 32.8
[2019-11-10 10:13] LABS: Erythrocyte Sedimentation Rate 7 mm/hr (0-20)
[2019-11-10 10:15] LABS: Hematocrit 36.3 % (40-54); Hemoglobin 12.2 g/dL (13.0-16.5); Mean Corp Hgb Conc 33.6 g/dL (32-36); Mean Corpuscular Volume 101.1 fL (80-94); Mean Platelet Vol. 12.3 fl (6.2-12.0); Platelet Count 169 K/mm3 (150-450); RBC Distribution Width CV 14.9 % (11.6-14.6); RBC Distribution Width SD 55.6 fl (35.1-43.9); Red Blood Count 3.59 M/mm3 (4.6-6.2); White Blood Count 7.5 K/mm3 (4.4-11.0)
[2019-11-10 10:26] LABS: ALB/GLOB Ratio 0.9 RATIO (0.9-2.4); AST(SGOT) 23 U/L (15-37); Alanine Aminotransfer ALT/SGPT 15 U/L (16-61); Alkaline Phosphatase 55 U/L (45-117); Anion Gap 5 (5-15); BUN 19 mg/dL (7-18); BUN/Creat Ratio 21.8 RATIO (10-20); Calcium,Total 8.7 mg/dL (8.5-10.1); Chloride 111 mmol/L (98-107); Creatinine, Serum 0.87 mg/dL (0.70-1.30); EST Glomerular Filtration Rate 94 mL/min (>60); Est Glom Filt Rate - Afr Amer 114 mL/min (>60); Globulin 3.2 g/dL (2.2-4.2); Glucose 116 mg/dL (74-106); Potassium 3.7 mmol/L (3.5-5.1); Protein, Total 6.2 g/dL (6.4-8.2); Sodium Level 143 mmol/L (136-145)
== END ==
PROVIDERS: PCP Family Medicine; Referring Provider Physician Assistant; Visit Provider Physician Assistant
DX: R46.89 Other symptoms and signs involving appearance and behavior (principal); R53.1 Weakness; Z90.79 Acquired absence of other genital organ(s); G40.909 Epilepsy, unspecified, not intractable, without status epilepticus
CPT/HCPCS: 80053; 85027; 85652

== ENCOUNTER 2019-12-08 14:50 | Inpatient (IN) | payer MEDICAID, SELFPAY ==
[2019-12-08] VITALS (13 sets, daily range): BP systolic 99–130; BP diastolic 51–96; PULSE 69–80; RESP 14–20; TEMP 36.3–37.1; O2SAT 91–97; BMI 25.5
--- NOTE | 2019-12-08 15:44 | EKG12_ITS ---
Test Reason : ABD PAIN Blood Pressure : / mmHG Vent. Rate : 089 BPM Atrial Rate : 089 BPM P-R Int : 202 ms QRS Dur : 082 ms QT Int : 350 ms P-R-T Axes : 046 -12 043 degrees QTc Int : 425 ms Normal sinus rhythm Nonspecific ST abnormality Abnormal ECG Confirmed by JOCELIN OVERTON, JOEL ([id number]), senior editor RUSSELL JOHNSON ([id number]) on 12/09/2019 9:23:03 AM Referred By: MERARY Confirmed By:JOEL MONREAL MD
--- NOTE | 2019-12-08 15:45 | CT_ITS ---
We are attempting to reach an attending provider to discuss findings. An addendum with communication details will be sent when the communication is complete. STUDY: CT ABDOMEN AND PELVIS WITHOUT CONTRAST REASON FOR EXAM: Male, 64 years old. Abdominal pain x 1 week per caregiver, decreased urine output, elevated WBC. Patient uncooperative and talking thru exam-best images possible. RADIATION DOSAGE (If Supplied By Facility): CTDIvol = ( 10.20 ) mGy, DLP = ( 633.16 ) mGycm TECHNIQUE: Transaxial images were obtained from the dome of the diaphragm to the symphysis pubis without oral contrast, and without intravenous contrast. Sagittal and coronal images were reconstructed. Individualized dose optimization techniques were used for this CT. Exam limited by motion artifact. COMPARISON: None. FINDINGS: The lung bases are not visualized. Moderate pericholecystic inflammatory stranding is present and associated with diffuse edema of the wall of the gallbladder compatible with acute cholecystitis. No stones are visible by CT but will likely be detected on ultrasound. No free air or free fluid of the abdomen or pelvis. Grossly unremarkable liver, pancreas, spleen. No hydronephrosis or renal masses or visualized stones. Grossly unremarkable bilateral adrenal glands. The stomach and small bowel loops are unremarkable with exception of the distal ileum with there is mild fluid distention just proximal to the ileocolic junction. Unremarkable colon. No significant osseous abnormality. Grossly unremarkable bladder. Atherosclerotic calcifications of the abdominal aorta noted. No visualized aneurysm. CT/Abdomen/Pelvis without Cont IMPRESSION: 1. Acute cholecystitis Electronically Signed: Billy Hodgson MD at 17:15 EDT , Service support ,
[2019-12-08 16:06] LABS: Absolute Lymphocyte Count 2.78 X10^3/uL (0.83-4.51); Absolute Neutrophil Count 17.8 X10^3/uL (2.0-7.7); Basophil# 0.04 X10^3/uL; Basophil% 0.2 % (0-1); Eosinophil# 0.04 X10^3/uL; Eosinophils% 0.2 % (0-5); Hematocrit 45.2 % (40-54); Hemoglobin 14.3 g/dL (13.0-16.5); Lymphocyte # 2.78 X10^3/ul (4.0); Lymphocyte % 12.2 % (19-41); Mean Corp Hgb Conc 31.6 g/dL (32-36); Mean Corpuscular Volume 101.1 fL (80-94); Monocyte# 2.01 X10^3/uL; Monocyte% 8.8 % (0-10); NRBC Flagged by Analyzer 0 % (0-5); Neutrophil % 78.1 % (47-70); POSITIVE DIFFERENTIAL YES; Platelet Count 155 K/mm3 (150-450); RBC Distribution Width CV 13.9 % (11.6-14.6); RBC Distribution Width SD 52.5 fl (35.1-43.9); Red Blood Count 4.47 M/mm3 (4.6-6.2); White Blood Count 22.8 K/mm3 (4.4-11.0)
[2019-12-08 16:10] LABS: International Normalized Ratio 1.4; Partial Thromboplast Time 31.2 Seconds (24.1-36.2); Prothrombin Time (Protime)PT. 16.3 SECONDS (11.7-14.9)
[2019-12-08 16:14] LABS: Differential Indicated SCAN CRITERIA MET
--- NOTE | 2019-12-08 16:15 | RAD_ITS ---
STUDY: X-RAY CHEST REASON FOR EXAM: Male, 64 years old. ABDOMINAL PAIN TECHNIQUE: Single AP portable view of the chest. COMPARISON: 02/21/2019 FINDINGS: EKG leads overlie the chest. Stable appearance of the right hemidiaphragm There are interstitial changes of the lungs. There is no demonstrated pleural abnormality. Normal size heart. Normal mediastinum and eliot. Normal visualized pulmonary arteries. Normal visualized aortic arch and descending thoracic aorta. Normal visualized thoracic spine. Normal visualized ribs, clavicles, and shoulders. There is no demonstrated abnormality of the visualized soft tissue structures of the upper abdomen. RAD/Chest 1 View (Portable) IMPRESSION: No acute pulmonary process Electronically Signed: Dez Rawls MD at 16:58 EDT , Service support ,
[2019-12-08 16:28] LABS: ALB/GLOB Ratio 0.5 RATIO (0.9-2.4); AST(SGOT) 43 U/L (15-37); Alanine Aminotransfer ALT/SGPT 27 U/L (16-61); Albumin, Serum 2.6 g/dL (3.2-5.0); Alkaline Phosphatase 88 U/L (45-117); Anion Gap 9 (5-15); BUN 57 mg/dL (7-18); BUN/Creat Ratio 35.8 RATIO (10-20); Calcium,Total 10.9 mg/dL (8.5-10.1); Chloride 102 mmol/L (98-107); Creatinine, Serum 1.59 mg/dL (0.70-1.30); EST Glomerular Filtration Rate 47 mL/min (>60); Est Glom Filt Rate - Afr Amer 57 mL/min (>60); Globulin 5.2 g/dL (2.2-4.2); Glucose 90 mg/dL (74-106); Potassium 3.5 mmol/L (3.5-5.1); Protein, Total 7.8 g/dL (6.4-8.2); Sodium Level 138 mmol/L (136-145)
[2019-12-08 16:39] LABS: Differential Comment SCANNED
[2019-12-08 16:42] LABS: Lactic Acid 3.3 mmol/L (0.4-1.9)
--- NOTE | 2019-12-08 17:03 | ED.VIS.GEN ---
History of Present Illness Chief Complaint: Abd Pain Narrative: Patient is brought in by care worker, he apparently has not eaten for 3 days, he has been complaining of abdominal pain, he has MRDD and is difficult to get any kind of history from him he has had some vomiting in the past few days they have not noticed any fevers. They did notice dark urine today. Past Medical History - Allergies and Home Meds Allergies/Adverse Reactions: Allergies camphor [From Vicks Vaporub] Allergy (Verified 10/23/19 19:32) Other clobazam [From Onfi] Allergy (Verified 10/23/19 19:32) Other eucalyptus [From Vicks Vaporub] Allergy (Verified 10/23/19 19:32) Other eucalyptus oil [From Vicks Vaporub] Allergy (Verified 10/23/19 19:32) Other levetiracetam [From Keppra] Allergy (Verified 10/23/19 19:32) Other menthol [From Vicks Vaporub] Allergy (Verified 10/23/19 19:32) Other petrolatum,white [From Vicks Vaporub] Allergy (Verified 10/23/19 19:32) Other turpentine oil [From Vicks Vaporub] Allergy (Verified 10/23/19 19:32) Other Primary Care Physician: Jesus Noble MD [Primary Care Provider] - Past Medical History: - - Reviewed on his custodial paperwork, includes MRDD, chronic weakness, arthritis, hypertension. Surgical History: noncontributory, - - Intraventricular shunt placement Smoking Status: Never smoker - Family History Maternal Family History: Reports: - - Unable to obtain as patient is obtunded; and patient's attendant left. Paternal Family History: Reports: - - Unable to obtain as patient is obtunded; and patient's attendant left. Review of Systems ROS: Unable to Obtain - Secondary to his MRDD Physical Exam Vital Signs/Narrative: Vital Signs Temp Pulse Resp BP Pulse Ox 12/08/19 16:54 98.5 F 104/51 L 95 12/08/19 15:56 98.4 F 12/08/19 14:51 97.3 F L 76 15 122/96 H 97 General: - - He does not appear in significant distress, he has MRDD features he does communicate but very little and I cannot make sense of most of his sentences. Head: Normocephalic Eyes: Perrl. Negative for: Pale conjunctiva ENT: Dry mucous membranes Neck: Supple Cardiovascular: Regular rate, Regular rhythm Respiratory: No distress, CTA bilaterally Abdomen: Soft, Tender, - - There is diffuse tenderness throughout the abdomen he seems to wince when I press in the right upper quadrant, left upper quadrant, right lower quadrant and left lower quadrant. Back: Nontender, Normal Inspection. Negative for: CVA tenderness Extremities: Nontender, No edema Skin: Normal color Neurological: Alert, - - MRDD features without any focal deficit Diagnostic/Tx/Re-eval Chest X-Ray - ED: 1 View, Read by ED Physician, Read by Radiologist, Normal, Heart, Lungs, Mediastinum - Rhythm Strip Rhythm Strip: Sinus Rhythm Rate: 89 Ectopy: None - EKG Initial EKG Interpretation: - - Normal sinus rhythm with a rate of 89. Normal MS and QTc intervals. Nonspecific ST changes throughout. Otherwise normal EKG Interpreted by emergency doctor - Medical Decision Making Patient is found to have leukocytosis as well as acute cholecystitis. He has lactic acidosis, IV fluids as well as antibiotics were started. I discussed with surgery at this time patient will need medical management before surgical management. He was resuscitated in the ED according to the sepsis protocol. - Critical Care Time Critical care time (excluding procedures): 30-74 minutes, Discussing w/Patient &/or Family/Dredge Lever Operator - Discussing with consultants, as well as performing direct bedside care. ED Disposition - Plan for ED Patient: Disposition: Acute Care Hospital [facility] Diagnosis: Acute cholecystitis, Sepsis Referrals: Jesus Noble MD [Primary Care Provider] -
[2019-12-08 17:11] LABS: Mucous, Urine 0 SEEN /hpf (<or=2+); Red Blood Cells-Urine 0 SEEN /hpf (0-5); White Blood Cells 0 SEEN /hpf (0-5)
[2019-12-08] MEDS: 0.9% Normal Saline 1,000 ML 999 ML IV (17:21)
[2019-12-08 17:24] LABS: Color, Urine Yellow (Yellow); Glucose, Dipstick Normal (Normal); Ketone-Dipstick 5 mg/dl (Negative); Leukocyte Esterase-Dipstick 25 /ul (Negative); Nitrite-Dipstick Negative (Negative); Occult Blood-Urine Negative /ul (Negative); Protein-Dipstick 15 mg/dl (Negative); Urine Clarity Sl. Cloudy (Clear); Urine Urobilinogen 1 mg/dl (Normal)
[2019-12-08 18:02] LABS: Urine Bilirubin Dipstick 1 mg/dL (Negative)
[2019-12-08 18:03] LABS: Bacteria RARE /hpf (None Seen); Squamous Epithelial Cells - UA 0-5 SEEN /hpf (0-5)
--- NOTE | 2019-12-08 18:05 | US_ITS ---
STUDY: ABDOMINAL ULTRASOUND - RIGHT UPPER QUADRANT REASON FOR VISIT: Male, 64 years old ABD PAIN TECHNIQUE: Ultrasound evaluation of the right upper quadrant was performed with real-time and static bashir-scale imaging. TECHNICAL QUALITY: Adequate. COMPARISON: CT of abdomen and pelvis dated OCTOBER 13, 2019 FINDINGS: Liver: The liver measures 16.6 cm. There is increased echogenicity consistent with fatty infiltration. The bile ducts are within normal limits. There is hepatic color flow. The direction of portal flow is hepatopetal. There is no demonstrated mass lesion. Gallbladder: Normal distended gallbladder. The gallbladder wall is thickened and edematous measures 4 mm. A small amount of pericholecystic fluid is seen on this study, but on the recent CT it is much more pronounced. The gallbladder is filled with sludge and multiple tiny stones. Common Bile Duct (C.B.D.): The common bile duct measures mm. Pancreas: There is nonvisualization of the pancreas, which is obscured by bowel gas. Right Kidney: Normal size of the right kidney. The right kidney measures 11.4 x 6.6 x 5.7 cm. Normal renal cortex. The right cortex measures 1.2 cm. There is no demonstrated renal mass or cyst. There is no right hydronephrosis. US/Gallbladder IMPRESSION: Acute cholecystitis with multiple tiny stones intermixed with a moderate amount of sludge and abnormally thickened gallbladder wall Electronically Signed: Billy Hodgson MD at 19:45 EDT , Service support ,
--- NOTE | 2019-12-08 18:13 | HP.PCM_ITS ---
<Irene Viramontes - Last Filed: 12/08/19 18:25> Problem List (1) Acute cholecystitis Status: Acute (2) Acute kidney injury Status: Acute (3) MRDD Status: Chronic (4) Mental retardation Status: Chronic (5) Seizure disorder Status: Chronic History of Present Illness Date of Admission: 12/08/19 Chief Complaint: Abdominal pain, nausea/vomiting, dark urine. The patient is a 64 year old M who [facility] from [facility] due to abdominal pain, nausea, vomiting and dark urine. Elevator Supervisor at bedside states patient has complained of intermittent abdominal pain since last Sunday. Over the past 3 days he has had nausea and vomiting and has not been eating or drinking. This morning his urine was noted to be dark brown in color and he was referred to the emergency room at that time. Patient has a history of MRDD and is mostly nonverbal during assessment. Elevator Supervisor provides HPI. Elevator Supervisor denies fever. Denies exposure to sick contacts at [facility]. She denies diarrhea or constipation. Patient states today patient has denied abdominal pain. He has a past medical history of MRDD and seizures. Past Medical History Past Medical History (Chronic Problems): Chronic Problems MRDD (Chronic) Mental retardation (Chronic) Seizure disorder (Chronic) Allergies camphor [From Vicks Vaporub] Allergy (Verified 10/23/19 19:32) Other clobazam [From Onfi] Allergy (Verified 10/23/19 19:32) Other eucalyptus [From Vicks Vaporub] Allergy (Verified 10/23/19 19:32) Other eucalyptus oil [From Vicks Vaporub] Allergy (Verified 10/23/19 19:32) Other levetiracetam [From Keppra] Allergy (Verified 10/23/19 19:32) Other menthol [From Vicks Vaporub] Allergy (Verified 10/23/19 19:32) Other petrolatum,white [From Vicks Vaporub] Allergy (Verified 10/23/19 19:32) Other turpentine oil [From Vicks Vaporub] Allergy (Verified 10/23/19 19:32) Other Home Medications: Ambulatory Orders Medication Instructions Recorded Calcium (Elemental) [Os-Rick 500] 500 mg PO DAILY@0800,1700 10/17/13 Docusate Sodium [Dok] 100 mg PO DAILY PRN PRN 10/13/19 Lamotrigine [Lamictal Xr] 100 mg PO DAILY@0810/16/19 Zonisamide 100 mg PO BID@799,199910/16/19 Divalproex Sodium 500 mg PO DAILY@1700 12/08/19 Divalproex Sodium [Divalproex 500 mg PO DAILY@0812/08/19 Sodium ER] Multivitamin/Iron/Folic Acid 1 tab PO DAILY@79912/08/19 [Certavite-Antioxidant Tablet] Polyethylene Glycol 3350 [Gavilax] 17 gm PO DAILY@79912/08/19 Pyridoxine HCl (Vitamin B6) 100 mg PO DAILY@79912/08/19 [Vitamin B-6] Sennosides [Senna Laxative] 8.6 mg PO DAILY@08,199912/08/19 Tamsulosin HCl [Flomax] 0.4 mg PO QHS 12/08/19 Surgical History: - - Intraventricular shunt placement, right scrotal orchiect leti. Psychiatric History: - - MRDD Lives: - - [facility] Smoking Status: Never smoker Alcohol: None Drugs: None - *Family History Maternal History Items: - - Unable to obtain, cashier clerk denies known maternal medical his tory. Paternal History Items: - - Unable to obtain, cashier clerk denies known paternal medical history. Review of Systems Unable to obtain accurate/complete ROS d/t: MRDD-patient denies ROS. Elevator Supervisor provides HPI/ROS. VTE Information - Inpt Only VTE Present on Admission: No VTE Mechan Device Prophylaxis: None VTE Pharm Prophylaxis ordered?: Yes Patient Problems: Active and Suspected Problems Acute kidney injury (Acute) Acute cholecystitis (Acute) - Physical Exam Vitals/I&O's: Vital Signs Temp Pulse Resp BP Pulse Ox 97.8 F 80 17 108/66 96 12/08/19 17:57 12/08/19 17:57 12/08/19 17:57 12/08/19 17:57 12/08/19 17:57 Oxygen Delivery Method Room Air Weight: 0 oz Body Mass Index (BMI) 0.0 Intake and Output for Last 24 Hours 08/15/20 08/16/20 08/17/20 23:59 23:59 23:59 Intake Total 100 / 100 Balance 100 / 100 General: Alert, Cooperative, No apparent distress, - - MRDD HEENT: Atraumatic, PERRLA, EOMI, Normocephalic Oral: Dry Mucosa Neck: Supple, No JVD, Negative Carotid Bruits Lungs: Clear to auscultation, Normal air movement Cardiovascular: Regular rate, No murmurs Abdomen: Bowel Sounds Present, Soft, Non Tender, Non-Distended, Obese Extremities: No clubbing, No cyanosis, No edema, Capillary Refill Less than 3 Seconds Skin: No rashes, No breakdown Musculoskeletal: No Tenderness to Palpation of Joints or Extremities Neurological: Cranial nerves II-XII grossly intact, Neuro grossly intact Psych/Mental Status: Normal Affect Laboratory Results 12/08/19 15:40: WBC 22.8 H, RBC 4.47 L, Hgb 14.3, Hct 45.2, MCV 101.1 H, MCH 32.0, MCHC 31.6 L, RDW Std Deviation 52.5 H, RDW Coeff of Stephany 13.9, Plt Count 155, MPV 12.0, Immature Gran % (Auto) 0.500, Neut % (Auto) 78.1 H, Lymph % (Auto) 12.2 L, Ripley % (Auto) 8.8, Eos % (Auto) 0.2, Baso % (Auto) 0.2, Absolute Neuts (auto) 17.8 H, Absolute Lymphs (auto) 2.78, Nucleated RBC % 0, Differential Comment SCANNED, Diff Path Review August foll 12/08/19 15:40: PT 16.3 H, INR 1.4, APTT 31.2 12/08/19 15:40: Sodium 138, Potassium 3.5, Chloride 102, Carbon Dioxide 27.0, Anion Gap 9, BUN 57 H, Creatinine 1.59 H, Estim Creat Clear Calc 0.00, Est GFR (MDRD) Af Amer 57 L, Est GFR (MDRD) Non-Af 47 L, BUN/Creatinine Ratio 35.8 H, Glucose 90, Calcium 10.9 H, Total Bilirubin 0.70, AST 43 H, ALT 27, Alkaline Phosphatase 88, Total Protein 7.8, Albumin 2.6 L, Globulin 5.2 H, Albumin/Globulin Ratio 0.5 L 12/08/19 15:48: Lactic Acid 3.3 H* 12/08/19 17:05: Urine Color Yellow, Urine Clarity Sl. Cloudy, Urine pH 5.0, Ur Specific Allred 1.020, Urine Protein 15 H, Urine Glucose (UA) Normal, Urine Ketones 5 H, Urine Occult Blood Negative, Urine Nitrite Negative, Urine Bilirubin 1 H, Urine Urobilinogen 1 H, Ur Leukocyte Esterase 25 H, Urine RBC 0 SEEN, Urine WBC 0 SEEN, Ur Squamous Epith Cells 0-5 SEEN, Urine Bacteria RARE, Urine Mucus 0 SEEN Current Medications Sodium Chloride () 500 mls @ 999 mls/hr IV .Q31M CAESAR Stop: 12/08/19 18:30 Assessment/Plan All Active Problems Acute kidney injury (Acute) Acute cholecystitis (Acute) 1. Acute cholecystitis-General surgery, Dr. Glynn consulted from ER. IV Zosyn. IV fluids. IV famotidine. PRN pain regimen. PRN antiemetics. N.p.o. Aggressive medical management given high risk for surgery. Lactic acid 3.3. WBC 22.8. Afebrile. Did not meet other sepsis criteria. 2. Acute kidney injury-aggressive IV fluids. Trend BMP. Monitor for urinary retention. Continue home Flomax regimen. 3. History of seizure disorder-on divalproex, lamotrigine. 4. MRDD-resides in [facility]. DVT prophylaxis- heparin sc This patient was seen by RICARDO Chandler under the supervision of Dr. Dinero. <Matthew Dinero E - Last Filed: 12/08/19 18:34> History of Present Illness The patient is a 64 year old M [] Past Medical History Allergies camphor [From Vicks Vaporub] Allergy (Verified 10/23/19 19:32) Other clobazam [From Onfi] Allergy (Verified 10/23/19 19:32) Other eucalyptus [From Vicks Vaporub] Allergy (Verified 10/23/19 19:32) Other eucalyptus oil [From Vicks Vaporub] Allergy (Verified 10/23/19 19:32) Other levetiracetam [From Keppra] Allergy (Verified 10/23/19 19:32) Other menthol [From Vicks Vaporub] Allergy (Verified 10/23/19 19:32) Other petrolatum,white [From [employer] Vaporub] Allergy (Verified 10/23/19 19:32) Other turpentine oil [From [employer] Vaporub] Allergy (Verified 10/23/19 19:32) Other - Physical Exam Vitals/I&O's: Vital Signs Temp Pulse Resp BP Pulse Ox 97.9 F 77 18 102/66 93 12/08/19 18:23 12/08/19 18:23 12/08/19 18:23 12/08/19 18:23 12/08/19 18:23 Oxygen Delivery Method Room Air Weight: 0 oz Body Mass Index (BMI) 0.0 Intake and Output for Last 24 Hours 12/06/19 12/07/19 12/08/19 23:59 23:59 23:59 Intake Total 116.65 / 116.65 Balance 116.65 / 116.65 Laboratory Results 12/08/19 15:40: WBC 22.8 H, RBC 4.47 L, Hgb 14.3, Hct 45.2, MCV 101.1 H, MCH 32.0, MCHC 31.6 L, RDW Std Deviation 52.5 H, RDW Coeff of Stephany 13.9, Plt Count 155, MPV 12.0, Immature Gran % (Auto) 0.500, Neut % (Auto) 78.1 H, Lymph % (Auto) 12.2 L, Ripley % (Auto) 8.8, Eos % (Auto) 0.2, Baso % (Auto) 0.2, Absolute Neuts (auto) 17.8 H, Absolute Lymphs (auto) 2.78, Nucleated RBC % 0, Differential Comment SCANNED, Diff Path Review August foll 12/08/19 15:40: PT 16.3 H, INR 1.4, APTT 31.2 12/08/19 15:40: Sodium 138, Potassium 3.5, Chloride 102, Carbon Dioxide 27.0, Anion Gap 9, BUN 57 H, Creatinine 1.59 H, Estim Creat Clear Calc 0.00, Est GFR (MDRD) Af Amer 57 L, Est GFR (MDRD) Non-Af 47 L, BUN/Creatinine Ratio 35.8 H, Glucose 90, Calcium 10.9 H, Total Bilirubin 0.70, AST 43 H, ALT 27, Alkaline Phosphatase 88, Total Protein 7.8, Albumin 2.6 L, Globulin 5.2 H, Albumin/Globulin Ratio 0.5 L 12/08/19 15:48: Lactic Acid 3.3 H* 12/08/19 17:05: Urine Color Yellow, Urine Clarity Sl. Cloudy, Urine pH 5.0, Ur Specific Allred 1.020, Urine Protein 15 H, Urine Glucose (UA) Normal, Urine Ketones 5 H, Urine Occult Blood Negative, Urine Nitrite Negative, Urine Bilirubin 1 H, Urine Urobilinogen 1 H, Ur Leukocyte Esterase 25 H, Urine RBC 0 SEEN, Urine WBC 0 SEEN, Ur Squamous Epith Cells 0-5 SEEN, Urine Bacteria RARE, Urine Mucus 0 SEEN Current Medications Sodium Chloride () 500 mls @ 999 mls/hr IV .Q31M CAESAR Stop: 12/08/19 18:30 Last Admin: 12/08/19 18:23 Dose: 999 mls/hr Documented by: Assessment/Plan Hospitalist note: I am seeing this patient in conjunction with Irene Viramontes. I independently seen and examined the patient. History and physical, laboratory data and imaging studies reviewed and I concur with above work-up and treatment plan. Patient presented [facility] emergency [facility] the [facility] because of abdominal pain, nausea, vomiting and dark urine. Patient himself is not able to provide any history. According to the caregiver, patient started having abdominal pain since last Sunday, associated with nausea and vomiting and patient has not been able to eat or drink for the last 3 days. Patient is not able to provide any more details about this pain. There is no reported fever, no sick contacts. In the emergency department, patient was afebrile, blood pressure and heart rate were stable, pulse ox was maintained on room air. Routine blood work was rem arkable for significant leukocytosis with neutrophilia, BUN of 57, creatinine is 1.59. Lactic acid was 3.3. LFT was unremarkable. Urinalysis showed no evidence of acute cystitis. Chest x-ray showed no acute infiltrate or consolidation. CT scan abdomen and pelvis without contrast revealed findings consistent with acute cholecystitis. Patient is being admitted for acute cholecystitis and acute kidney injury. - Physical Exam General: Alert, Cooperative, No apparent distress. HEENT: Atraumatic, PERRLA, EOMI. Neck: Supple, No JVD, Negative Carotid Bruits, Trachea Midline, Thyroid Normal. Lungs: Diminished breath sounds bilateral, otherwise clear no rhonchi, No wheeze, No rales. Cardiovascular: Regular rate, Regular Rhythm, Normal S1, Normal S2, PMI Normal. Abdomen: Bowel Sounds Present, Soft, I was not able to elicit significant tenderness, Non-Distended, No Hepato-splenomegaly. Extremities: No clubbing, No cyanosis, trace edema Skin: No rashes, No breakdown Neurological: Cranial nerves are intact, neuro grossly intact, global weakness. Vital signs are stable. Assessment and plan: #1 acute cholecystitis: No evidence of gallstones on CT scan abdomen. Although patient has leukocytosis, elevated lactic acid, no evidence of sepsis or severe sepsis, currently was not met. He is afebrile, no tachycardia, no tachypnea. Plan: Admit to PCU, cardiac monitoring, blood culture, urine culture, IV fluids, IV morphine PRN, IV antiemetics PRN, IV Pepcid twice daily, n.p.o., okay for p.o. meds, start IV Zosyn, general surgery consult, ultrasound gallbladder, repeat CBC and CMP tomorrow morning, PT OT evaluation and treatment. #2 acute kidney injury: Secondary to #1. Baseline kidney function is normal. Plan for IV fluids, input output chart, maintain Garland catheter, repeat BMP tomorrow morning. #3 lactic acidosis: Secondary to #1 but there is no evidence of sepsis or severe sepsis. Patient does not meet sepsis criteria, afebrile, no tachycardia, no tachypnea. Plan as above, blood culture, urine culture, start IV Zosyn. #4 other chronic medical problems: Stable, continue home medications as above. This note was generated with [employer] dictation software. It may contain incorrect words, spelling, and punctuation that were not noted in checking the note before signing. Inpatient E&M: 79861 Init Hosp L3
--- NOTE | 2019-12-08 18:18 | PCM.CONS.GEN ---
Reason for Consult Date of Consultation: 12/08/19 History of Present Illness: The patient is a 64 year old M who I have been asked to see through the emergency room By . This is a patient with developmental disability who lives in a intermediate. By report he has been ill for 1 week dating back to last Sunday. He started complaining of abdominal pain at that time. 3 days ago Sunday he stopped eating and drinking. Because today his urine looks like it might have blood in it he was brought to the emergency room. A chest x-ray was obtained without acute finding. A CT scan without contrast was obtained. 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 No free air or free fluid. The stomach and small bowel loops are unremarkable with the exception of the distal ileum where there is mild fluid distention just proximal to the ileocolonic junction. It is of additional note that the patient's white blood cell count is 22.8 with hemoglobin 14.3 and hematocrit of 45.2 and a platelet count of 155,000 with 78% neutrophils. PT INR is essentially normal. Potassium is 3.5. BUN elevated to 57. Creatinine elevated 1.59. Estimated GFR 47 but this is findings are consistent with acute kidney injury. Lactic acid level 3.3. Calcium elevated at 10.9. Total bilirubin 0.7. AST 43. ALT 27. Alkaline phosphatase 88. Albumin low at 2.6. Urinalysis not remarkable. Patient is nonverbal. Cannot obtain a review of systems from him. He apparently has not had any previous abdominal surgery. He has had an orchiectomy. 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 Phone number for that service is [phone] Past Medical History Past Medical History (Chronic Problems): Chronic Problems MRDD (Chronic) Mental retardation (Chronic) Seizure disorder (Chronic) Allergies camphor [From Vicks Vaporub] Allergy (Verified 10/23/19 19:32) Other clobazam [From Onfi] Allergy (Verified 10/23/19 19:32) Other eucalyptus [From Vicks Vaporub] Allergy (Verified 10/23/19 19:32) Other eucalyptus oil [From Vicks Vaporub] Allergy (Verified 10/23/19 19:32) Other levetiracetam [From Keppra] Allergy (Verified 10/23/19 19:32) Other menthol [From Vicks Vaporub] Allergy (Verified 10/23/19 19:32) Other petrolatum,white [From Vicks Vaporub] Allergy (Verified 10/23/19 19:32) Other turpentine oil [From Vicks Vaporub] Allergy (Verified 10/23/19 19:32) Other Home Medications: Ambulatory Orders Medication Instructions Recorded Calcium (Elemental) [Os-Rick 500] 500 mg PO BID 10/17/13 Pyridoxine HCl [Vitamin B6] 100 mg PO DAILY 10/17/13 Docusate Sodium [Dok] 100 mg PO PRN PRN 10/13/19 Multivitamin/Iron/Folic Acid 1 ea PO DAILY 10/13/19 [Certavite-Antioxidant Tablet] Lamotrigine [Lamictal Xr] 100 mg PO DAILY 10/16/19 Zonisamide 100 mg PO DAILY 10/16/19 Divalproex Sodium [Depakote] 500 mg PO 0800,1700 tab 10/18/19 Cephalexin [Keflex] 500 mg PO TID #21 cap 10/20/19 Smz/Tmp Ds [Bactrim Ds] 1 tab PO BID #6 tab 10/21/19 Surgical History: - - Intraventricular shunt placement, right scrotal orchiectomy. Psychiatric History: - - MRDD Lives: - - [facility] Smoking Status: Never smoker Alcohol: None Drugs: None - *Family History Maternal History Items: - - Unable to obtain, pleater hand denies known maternal medical history. Paternal History Items: - - Unable to obtain, pleater hand denies known paternal medical history. Review of Systems Constitutional: Denies: Fever Gastrointestinal: Reports: Abdominal Pain, - - Initial report was of low abdominal pain No bowel movement for 56 hours. Denies: Vomiting Genitourinary: Reports: - - Dark-colored urine that made the caretakers think of hematuria Unable to obtain accurate/complete ROS d/t: Other than the comments as noted above unable to obtain an accurate review Patient Problems: Active and Suspected Problems Acute kidney injury (Acute) Acute cholecystitis (Acute) - Physical Exam Vitals/I&O's: Vital Signs Temp Pulse Resp BP Pulse Ox 97.8 F 80 17 108/66 96 08/17/20 17:57 12/08/19 17:57 12/08/19 17:57 12/08/19 17:57 12/08/19 17:57 Oxygen Delivery Method Room Air Weight: 0 oz Body Mass Index (BMI) 0.0 Intake and Output for Last 24 Hours 12/06/19 12/07/19 12/08/19 23:59 23:59 23:59 Intake Total 100 / 100 Balance 100 / 100 General: Alert, No apparent distress HEENT: - - H EENT exam most notable for marked kyphosis, chin is held significantly angled toward the sternum Oral: Dry Mucosa Lungs: - - Clear apices, poor respiratory excursion Cardiovascular: Regular rate, Regular Rhythm Abdomen: Bowel Sounds Not Present, Distended, Tender, - - Diffusely distended, quiet, nonspecific tenderness not particularly focally localized Extremities: No Calf Tenderness Psych/Mental Status: - - I did not get much of her verbal response Laboratory Results 12/08/19 15:40: WBC 22.8 H, RBC 4.47 L, Hgb 14.3, Hct 45.2, MCV 101.1 H, MCH 32.0, MCHC 31.6 L, RDW Std Deviation 52.5 H, RDW Coeff of Stephany 13.9, Plt Count 155, MPV 12.0, Immature Gran % (Auto) 0.500, Neut % (Auto) 78.1 H, Lymph % (Auto) 12.2 L, [place] % (Auto) 8.8, Eos % (Auto) 0.2, Baso % (Auto) 0.2, Absolute Neuts (auto) 17.8 H, Absolute Lymphs (auto) 2.78, Nucleated RBC % 0, Differential Comment SCANNED, Diff Path Review August12/08/19 15:40: PT 16.3 H, INR 1.4, APTT 31.2 12/08/19 15:40: Sodium 138, Potassium 3.5, Chloride 102, Carbon Dioxide 27.0, Anion Gap 9, BUN 57 H, Creatinine 1.59 H, Estim Creat Clear Calc 0.00, Est GFR (MDRD) Af Amer 57 L, Est GFR (MDRD) Non-Af 47 L, BUN/Creatinine Ratio 35.8 H, Glucose 90, Calcium 10.9 H, Total Bilirubin 0.70, AST 43 H, ALT 27, Alkaline Phosphatase 88, Total Protein 7.8, Albumin 2.6 L, Globulin 5.2 H, Albumin/Globulin Ratio 0.5 L 12/08/19 15:48: Lactic Acid 3.3 H* 12/08/19 17:05: Urine Color Yellow, Urine Clarity Sl. Cloudy, Urine pH 5.0, Ur Specific [place] 1.020, Urine Protein 15 H, Urine Glucose (UA) Normal, Urine Ketones 5 H, Urine Occult Blood Negative, Urine Nitrite Negative, Urine Bilirubin 1 H, Urine Urobilinogen 1 H, Ur Leukocyte Esterase 25 H, Urine RBC 0 SEEN, Urine WBC 0 SEEN, Ur Squamous Epith Cells 0-5 SEEN, Urine Bacteria RARE, Urine Mucus 0 SEEN Current Medications Sodium Chloride () 500 mls @ 999 mls/hr IV .Q31M [facility]AR Stop: 12/08/19 18:30 Assessment/Plan All Active Problems Acute kidney injury (Acute) Acute cholecystitis (Acute) 64-year-old gentleman with developmental disability. He presents with findings consistent with acute kidney injury acute dehydration. Imaging suggests acute acalculous cholecystitis. He has an ileus on clinical examination with abdominal distention. The abnormality involving the distal small bowel unclear. In addition he has marked kyphosis may make intubation extraordinarily challenging. I recommend primary care admission with aggressive treatment for dehydration and sepsis. I will have anesthesia evaluate the patient for operative risk. We will then need to consider whether the patient should be considered a candidate for laparoscopic cholecystectomy with selective cholangiograms or whether due to the now severely chronic nature of this problem whether a tube cholecystostomy is used to temporize this problem. With the patient having been complaining of abdominal pain for a week and the severity of the findings on CT scan this clearly would represent a much higher risk operative candidate. I do concur with recommendations per radiology to pursue a right upper quadrant gallbladder ultrasound. I appreciate the opportunity of assisting with patient care. We will follow with you and provide additional recommendations and input pending patient response. Billy Glynn M.D., F.A.C.S.
[2019-12-08 19:45] LABS: Lipase 218 U/L (73-393)
[2019-12-08 20:02] LABS: Reflex Lactate? Y
[2019-12-08 20:05] LABS: Probe Check PASS; Specimen Processing Control PASS
[2019-12-08] MEDS: 0.9% Normal Saline 1,000 ML 100 ML IV (20:22)
[2019-12-08] MEDS: ZONISAMIDE 100 MG CAPSULE PO (20:25)
[2019-12-08] MEDS: 0.9% Saline Lock 10 ML Syringe IV (20:27)
[2019-12-08 21:19] LABS: Lactic Acid 1.8 mmol/L (0.4-1.9)
[2019-12-08] MEDS: Famotidine 200 MG/20 ML MDV 20 MG in 0.9% Normal Saline (Pres. free 8 ML 300 MG IV (22:06)
[2019-12-08] MEDS: Tamsulosin HCl 0.4 MG Capsule PO (22:24)
[2019-12-08] MEDS: Heparin Injection (Vial) 5,000 UNIT/ML VIAL 5000 UNIT SC (22:24)
[2019-12-09] VITALS (23 sets, daily range): BP systolic 98–149; BP diastolic 52–98; PULSE 58–97; RESP 13–24; TEMP 36.5–36.6; O2SAT 88–96
[2019-12-09 05:14] LABS: Absolute Lymphocyte Count 2.21 X10^3/uL (0.83-4.51); Absolute Neutrophil Count 10.1 X10^3/uL (2.0-7.7); Basophil# 0.03 X10^3/uL; Basophil% 0.2 % (0-1); Eosinophil# 0.03 X10^3/uL; Eosinophils% 0.2 % (0-5); Hematocrit 34.3 % (40-54); Hemoglobin 11.2 g/dL (13.0-16.5); Lymphocyte # 2.21 X10^3/ul (4.0); Lymphocyte % 16.4 % (19-41); Mean Corp Hgb Conc 32.7 g/dL (32-36); Mean Corpuscular Hgb 32.6 pg (27.0-32.0); Mean Corpuscular Volume 99.7 fL (80-94); Mean Platelet Vol. 11.6 fl (6.2-12.0); Monocyte# 1.07 X10^3/uL; Monocyte% 7.9 % (0-10); NRBC Flagged by Analyzer 0 % (0-5); Neutrophil # 10.05 X10^3/uL (2.7-7.7); Neutrophil % 74.7 % (47-70); Platelet Count 135 K/mm3 (150-450); RBC Distribution Width CV 13.9 % (11.6-14.6); RBC Distribution Width SD 51.6 fl (35.1-43.9); Red Blood Count 3.44 M/mm3 (4.6-6.2); White Blood Count 13.5 K/mm3 (4.4-11.0)
[2019-12-09 05:31] LABS: ALB/GLOB Ratio 0.5 RATIO (0.9-2.4); AST(SGOT) 31 U/L (15-37); Alanine Aminotransfer ALT/SGPT 19 U/L (16-61); Albumin, Serum 1.8 g/dL (3.2-5.0); Alkaline Phosphatase 61 U/L (45-117); Anion Gap 5 (5-15); BUN 53 mg/dL (7-18); BUN/Creat Ratio 54.5 RATIO (10-20); Calcium,Total 8.9 mg/dL (8.5-10.1); Chloride 110 mmol/L (98-107); Creatinine, Serum 0.97 mg/dL (0.70-1.30); EST Glomerular Filtration Rate 83 mL/min (>60); Est Glom Filt Rate - Afr Amer 100 mL/min (>60); Estimated Creatinine Clearance 85.56 ml/min; Globulin 3.8 g/dL (2.2-4.2); Glucose 71 mg/dL (74-106); Potassium 3.4 mmol/L (3.5-5.1); Protein, Total 5.6 g/dL (6.4-8.2); Sodium Level 141 mmol/L (136-145)
--- NOTE | 2019-12-09 06:07 | PCM.PN.SRG ---
Patient Problems: Active and Suspected Problems Sepsis (Acute) Acute kidney injury (Acute) Acute cholecystitis (Acute) Subjective: Patient has remained stable overnight without acute change. No fever noted. - Physical Exam Vitals/I&O's: Vital Signs Temp Pulse Resp BP Pulse Ox 97.9 F 64 18 107/54 L 92 12/09/19 05:04 12/09/19 05:04 12/09/19 05:04 12/09/19 05:04 12/09/19 05:04 Oxygen Delivery Method Room Air Weight: 188 lb 4.396 oz Body Mass Index (BMI) 25.5 Intake and Output for Last 24 Hours 12/07/19 12/08/19 12/09/19 23:59 23:59 23:59 Intake Total 2061.45 / 2061.45 26.87 / 26.87 Output Total 300 / 300 225 / 225 Balance 1761.45 / 1761.45 -198.13 / -198.13 Lungs: Clear to auscultation Abdomen: Soft, Hypoactive Bowel Sounds, Tender Laboratory Results 12/08/19 15:40: WBC 22.8 H, RBC 4.47 L, Hgb 14.3, Hct 45.2, MCV 101.1 H, MCH 32.0, MCHC 31.6 L, RDW Std Deviation 52.5 H, RDW Coeff of Stephany 13.9, Plt Count 155, MPV 12.0, Immature Gran % (Auto) 0.500, Neut % (Auto) 78.1 H, Lymph % (Auto) 12.2 L, [place] % (Auto) 8.8, Eos % (Auto) 0.2, Baso % (Auto) 0.2, Absolute Neuts (auto) 17.8 H, Absolute Lymphs (auto) 2.78, Nucleated RBC % 0, Differential Comment SCANNED, Diff Path Review August12/08/19 15:40: PT 16.3 H, INR 1.4, APTT 31.2 12/08/19 15:40: Sodium 138, Potassium 3.5, Chloride 102, Carbon Dioxide 27.0, Anion Gap 9, BUN 57 H, Creatinine 1.59 H, Estim Creat Clear Calc 0.00, Est GFR (MDRD) Af Amer 57 L, Est GFR (MDRD) Non-Af 47 L, BUN/Creatinine Ratio 35.8 H, Glucose 90, Calcium 10.9 H, Total Bilirubin 0.70, AST 43 H, ALT 27, Alkaline Phosphatase 88, Total Protein 7.8, Albumin 2.6 L, Globulin 5.2 H, Albumin/Globulin Ratio 0.5 L 12/08/19 15:40: Lipase 218 12/08/19 15:48: Lactic Acid 3.3 H* 12/08/19 17:05: Urine Color Yellow, Urine Clarity Sl. Cloudy, Urine pH 5.0, Ur Specific [place] 1.020, Urine Protein 15 H, Urine Glucose (UA) Normal, Urine Ketones 5 H, Urine Occult Blood Negative, Urine Nitrite Negative, Urine Bilirubin 1 H, Urine Urobilinogen 1 H, Ur Leukocyte Esterase 25 H, Urine RBC 0 SEEN, Urine WBC 0 SEEN, Ur Squamous Epith Cells 0-5 SEEN, Urine Bacteria RARE, Urine Mucus 0 SEEN 12/08/19 17:15: COVID-19 (AURY) Negative 12/08/19 20:42: Lactic Acid 1.8 12/09/19 05:08: WBC 13.5 H, RBC 3.44 L, Hgb 11.2 L, Hct 34.3 L, MCV 99.7 H, MCH 32.6 H, MCHC 32.7, RDW Std Deviation 51.6 H, RDW Coeff of Stephany 13.9, Plt Count 135 L, MPV 11.6, Immature Gran % (Auto) 0.600, Neut % (Auto) 74.7 H, Lymph % (Auto) 16.4 L, [place] % (Auto) 7.9, Eos % (Auto) 0.2, Baso % (Auto) 0.2, Absolute Neuts (auto) 10.1 H, Absolute Lymphs (auto) 2.21, Nucleated RBC % 0 12/09/19 05:08: Sodium 141, Potassium 3.4 L, Chloride 110 H, Carbon Dioxide 26.0, Anion Gap 5, BUN 53 H, Creatinine 0.97, Estim Creat Clear Calc 85.56, Est GFR (MDRD) Af Amer 100, Est GFR (MDRD) Non-Af 83, BUN/Creatinine Ratio 54.5 H, Glucose 71 L, Calcium 8.9, Total Bilirubin 0.50, AST 31, ALT 19, Alkaline Phosphatase 61, Total Protein 5.6 L, Albumin 1.8 L, Globulin 3.8, Albumin/Globulin Ratio 0.5 L Current Medications Acetaminophen (Tylenol) 650 mg PO Q6H PRN PRN PRN Reason: Pain Score 1-10/Temp > 100.7 F Divalproex Sodium (Depakote) 500 mg PO DAILY@1700 [facility] Divalproex Sodium (Depakote Er) 500 mg PO DAILY@0800 [facility] Heparin Sodium (Porcine) (Heparin Na) 5,000 unit SC Q12 [facility] Last Admin: 12/08/19 22:24 Dose: 5,000 unit Documented by: Sodium Chloride () 1,000 mls @ 100 mls/hr IV .Q10H [facility] Last Infusion: 12/08/19 23:59 Dose: 100 mls/hr Documented by: Piperacillin Sod/Tazobactam (Sod 3.375 gm/ Sodium Chloride) 50 mls @ 12.5 mls/hr IV Q8 [facility] Last Admin: 12/09/19 05:01 Dose: 12.5 mls/hr Documented by: Famotidine 20 mg/ Sodium (Chloride) 10 mls @ 300 mls/hr IV Q12 [facility] Last Infusion: 12/08/19 22:08 Dose: Infused Documented by: Sodium Chloride () 250 mls @ 15 mls/hr IV .[id number] PRN PRN Reason: Saline Flush Sodium Chloride () 250 mls @ 15 mls/hr IV .[id number] PRN PRN Reason: Additional IVPB Infusion Sodium Chloride () 500 mls @ 500 mls/hr IV .Q1H [facility] Stop: 12/09/19 07:14 Potassium Chloride () 10 meq in 100 mls @ 100 mls/hr IV BOLUS Q1H [facility] Stop: 12/09/19 09:14 Lamotrigine (Lamictal) 50 mg PO BID [facility] Morphine Sulfate () 2 mg IV Q3H PRN PRN PRN Reason: Pain Score 6-10/10 Ondansetron HCl (Zofran) 4 mg IV Q8H PRN PRN PRN Reason: NAUSEA/VOMITING Sodium Chloride () 10 - 40 ml IV UD PRN PRN Reason: SALINE FLUSH Last Admin: 12/08/19 20:27 Dose: 10 ml Documented by: Tamsulosin HCl (Flomax) 0.4 mg PO QHS [facility] Last Admin: 12/08/19 22:24 Dose: 0.4 mg Documented by: Zonisamide (Zonisamide) 100 mg PO BID@0800,1999 [facility] Last Admin: 12/08/19 20:25 Dose: 100 mg Documented by: Medical Necessity - Tobacco Use Smoking Status: Never smoker Assessment/Plan All Active Problems Sepsis (Acute) Acute kidney injury (Acute) Acute cholecystitis (Acute) Gallbladder ultrasound consistent with thickened gallbladder wall multiple small stones pericholecystic fluid all consistent with acute cholecystitis. Unfortunate the patient has had abdominal pain for 1 week. This likely now is a very advanced process. Leukocytosis is improving with hydration and IV antibiotics. BUN remains elevated potassium slightly low. I will provide an additional fluid bolus and potassium replacement. Anesthesia will evaluate the patient for risks of intubation. If the patient is felt to be appropriate then plan to proceed with a laparoscopic cholecystectomy with selective cholangiography today. This clearly will be a much increased risk procedure. It may be able to be accomplished has a cholecystectomy or a partial gallbladder removal or possibly only a drainage procedure. I will discuss benefit risk complications alternatives with the patient's assigned guardian. We will then proceed as OR timing permits. Billy Glynn M.D., F.A.C.S.
[2019-12-09] MEDS: Potassium Chloride 10mEq/100mL 10 MEQ/100 ML IV.SOLN. 100 MEQ IV BOLUS ×3 (06:32→09:39)
[2019-12-09] MEDS: 0.9% Normal Saline 1,000 ML 100 ML IV ×2 (10:44→21:37)
[2019-12-09] MEDS: Famotidine 200 MG/20 ML MDV 20 MG in 0.9% Normal Saline (Pres. free 8 ML 300 MG IV ×2 (10:47→21:44)
--- NOTE | 2019-12-09 11:21 | CT_ITS ---
STUDY: CT ABDOMEN WITHOUT CONTRAST REASON FOR EXAM: Male, 64 years old. CHOLECYSTITIS DRAINAGE F/U RADIATION DOSAGE (If Supplied By Facility): CTDIvol = ( 14.80 ) mGy, DLP = ( 470.83 ) mGycm TECHNIQUE: Transaxial images were obtained without intravenous contrast. Sagittal and coronal images were reconstructed. Individualized dose optimization techniques were used for this CT. COMPARISON: None. FINDINGS: The visualized lung bases demonstrate subsegmental atelectases. The visualized portions of the heart are within normal limits. Normal liver. There is a cholecystostomy tube in good position. Normal spleen. Normal pancreas. Normal bilateral adrenal glands. Normal right kidney. Normal left kidney. Normal visualized stomach. Normal small intestine. Normal colon. The appendix is visualized and appears normal. Normal abdominal aorta. Normal inferior vena cava. Normal retroperitoneum. Normal abdominal wall. There are diffuse degenerative changes of the visualized lumbar spine. CT/Limited or Localized F/U CT IMPRESSION: Cholecystostomy tube in good position. Electronically Signed: Andree Rincon, at 15:07 EDT Tel , Service support ,
--- NOTE | 2019-12-09 12:33 | PCM.PROGNOTE ---
<Irene Viramontes - Last Filed: 12/09/19 12:48> Patient Problems: Active and Suspected Problems Sepsis (Acute) Acute kidney injury (Acute) Acute cholecystitis (Acute) Subjective: Patient seen and examined. Appears to be resting comfortably in bed. Denies abdominal pain. No acute events overnight per nursing report. Possible laparoscopic cholecystectomy versus cholecystostomy tube placement by general surgery later today. - Physical Exam Vitals/I&O's: Vital Signs Temp Pulse Resp BP Pulse Ox 98 F 68 18 141/70 H 93 12/09/19 11:04 12/09/19 11:04 12/09/19 11:04 12/09/19 11:04 12/09/19 11:04 Oxygen Delivery Method Room Air Weight: 188 lb 4.396 oz Body Mass Index (BMI) 25.5 Intake and Output for Last 24 Hours 12/07/19 12/08/19 12/09/19 23:59 23:59 23:59 Intake Total 2061.45 / 2061.45 1390.20 / 1390.20 Output Total 300 / 300 225 / 225 Balance 1761.45 / 1761.45 1165.20 / 1165.20 General: Alert, Cooperative, No apparent distress, - - MRDD HEENT: Atraumatic, PERRLA, EOMI, Normocephalic Oral: Dry Mucosa Neck: Supple, No JVD, Negative Carotid Bruits Lungs: Clear to auscultation, Normal air movement Cardiovascular: Regular rate, No murmurs Abdomen: Bowel Sounds Present, Soft, Non Tender, Non-Distended, Obese Extremities: No clubbing, No cyanosis, No edema, Capillary Refill Less than 3 Seconds Skin: No rashes, No breakdown Musculoskeletal: No Tenderness to Palpation of Joints or Extremities Neurological: Cranial nerves II-XII grossly intact, Neuro grossly intact Psych/Mental Status: Normal Affect, Appropriate Microbiology Past 72 Hours 12/08/19 17:05 Urine, Catheterized Urine Culture - Preliminary Culture exhibits no growth. Laboratory Results 12/08/19 15:40: WBC 22.8 H, RBC 4.47 L, Hgb 14.3, Hct 45.2, MCV 101.1 H, MCH 32.0, MCHC 31.6 L, RDW Std Deviation 52.5 H, RDW Coeff of Stephany 13.9, Plt Count 155, MPV 12.0, Immature Gran % (Auto) 0.500, Neut % (Auto) 78.1 H, Lymph % (Auto) 12.2 L, Waldo % (Auto) 8.8, Eos % (Auto) 0.2, Baso % (Auto) 0.2, Absolute Neuts (auto) 17.8 H, Absolute Lymphs (auto) 2.78, Nucleated RBC % 0, Differential Comment SCANNED, Diff Path Review August12/08/19 15:40: PT 16.3 H, INR 1.4, APTT 31.2 12/08/19 15:40: Sodium 138, Potassium 3.5, Chloride 102, Carbon Dioxide 27.0, Anion Gap 9, BUN 57 H, Creatinine 1.59 H, Estim Creat Clear Calc 0.00, Est GFR (MDRD) Af Amer 57 L, Est GFR (MDRD) Non-Af 47 L, BUN/Creatinine Ratio 35.8 H, Glucose 90, Calcium 10.9 H, Total Bilirubin 0.70, AST 43 H, ALT 27, Alkaline Phosphatase 88, Total Protein 7.8, Albumin 2.6 L, Globulin 5.2 H, Albumin/Globulin Ratio 0.5 L 12/08/19 15:40: Lipase 218 12/08/19 15:48: Lactic Acid 3.3 H* 12/08/19 17:05: Urine Color Yellow, Urine Clarity Sl. Cloudy, Urine pH 5.0, Ur Specific [place] 1.020, Urine Protein 15 H, Urine Glucose (UA) Normal, Urine Ketones 5 H, Urine Occult Blood Negative, Urine Nitrite Negative, Urine Bilirubin 1 H, Urine Urobilinogen 1 H, Ur Leukocyte Esterase 25 H, Urine RBC 0 SEEN, Urine WBC 0 SEEN, Ur Squamous Epith Cells 0-5 SEEN, Urine Bacteria RARE, Urine Mucus 0 SEEN 12/08/19 17:15: COVID-19 (AURY) Negative 12/08/19 20:42: Lactic Acid 1.8 12/09/19 05:08: WBC 13.5 H, RBC 3.44 L, Hgb 11.2 L, Hct 34.3 L, MCV 99.7 H, MCH 32.6 H, MCHC 32.7, RDW Std Deviation 51.6 H, RDW Coeff of Stephany 13.9, Plt Count 135 L, MPV 11.6, Immature Gran % (Auto) 0.600, Neut % (Auto) 74.7 H, Lymph % (Auto) 16.4 L, Waldo % (Auto) 7.9, Eos % (Auto) 0.2, Baso % (Auto) 0.2, Absolute Neuts (auto) 10.1 H, Absolute Lymphs (auto) 2.21, Nucleated RBC % 0 12/09/19 05:08: Sodium 141, Potassium 3.4 L, Chloride 110 H, Carbon Dioxide 26.0, Anion Gap 5, BUN 53 H, Creatinine 0.97, Estim Creat Clear Calc 85.56, Est GFR (MDRD) Af Amer 100, Est GFR (MDRD) Non-Af 83, BUN/Creatinine Ratio 54.5 H, Glucose 71 L, Calcium 8.9, Total Bilirubin 0.50, AST 31, ALT 19, Alkaline Phosphatase 61, Total Protein 5.6 L, Albumin 1.8 L, Globulin 3.8, Albumin/Globulin Ratio 0.5 L Current Medications Acetaminophen (Tylenol) 650 mg PO Q6H PRN PRN PRN Reason: Pain Score 1-10/Temp > 100.7 F Divalproex Sodium (Depakote) 500 mg PO DAILY@1700 [facility] Divalproex Sodium (Depakote Er) 500 mg PO DAILY@0800 [facility] Fentanyl Citrate (Sublimaze (100mcg Ampule)) 25 - 50 mcg IV UD PRN PRN Reason: Procedural Pain Control Stop: 12/09/19 23:59 Heparin Sodium (Porcine) (Heparin Na) 5,000 unit SC Q12 [facility] Last Admin: 12/08/19 22:24 Dose: 5,000 unit Documented by: Sodium Chloride () 1,000 mls @ 100 mls/hr IV .Q10H [facility] Last Admin: 12/09/19 10:44 Dose: 100 mls/hr Documented by: Piperacillin Sod/Tazobactam (Sod 3.375 gm/ Sodium Chloride) 50 mls @ 12.5 mls/hr IV Q8 [facility] Last Infusion: 12/09/19 10:30 Dose: Infused Documented by: Famotidine 20 mg/ Sodium (Chloride) 10 mls @ 300 mls/hr IV Q12 [facility] Last Infusion: 12/09/19 10:49 Dose: Infused Documented by: Sodium Chloride () 250 mls @ 15 mls/hr IV .[id number] PRN PRN Reason: Saline Flush Sodium Chloride () 250 mls @ 15 mls/hr IV .[id number] PRN PRN Reason: Additional IVPB Infusion Sodium Chloride () 500 mls @ 0 mls/hr IV .Q0M [facility] Stop: 12/09/19 23:59 Lamotrigine (Lamictal) 50 mg PO BID [facility] Midazolam HCl (Versed) 1 - 2 mg IV UD PRN PRN Reason: Procedural Sedation Stop: 12/09/19 23:59 Morphine Sulfate () 2 mg IV Q3H PRN PRN PRN Reason: Pain Score 6-10/10 Ondansetron HCl (Zofran) 4 mg IV Q8H PRN PRN PRN Reason: NAUSEA/VOMITING Sodium Chloride () 10 - 40 ml IV UD PRN PRN Reason: SALINE FLUSH Last Admin: 12/08/19 20:27 Dose: 10 ml Documented by: Tamsulosin HCl (Flomax) 0.4 mg PO QHS [facility] Last Admin: 12/08/19 22:24 Dose: 0.4 mg Documented by: Zonisamide (Zonisamide) 100 mg PO BID@0800,2000 [facility] Last Admin: 12/08/19 20:25 Dose: 100 mg Documented by: Medical Necessity - Tobacco Use Smoking Status: Never smoker Assessment/Plan All Active Problems Sepsis (Acute) Acute kidney injury (Acute) Acute cholecystitis (Acute) 1. Acute cholecystitis-General surgery, Dr. Glynn consulted. IV Zosyn. IV fluids. IV famotidine. PRN pain regimen. PRN antiemetics. N.p.o. Patient did not meet sepsis criteria. Repeat lactic acid normal. WBC trending down. Laparoscopic cholecystectomy versus cholecystostomy tube pending surgery discussion with legal guardian. 2. Acute kidney injury-resolved with IV fluids. 3. Hypokalemia-replaced per protocol. Trend BMP. 4. History of seizure disorder-on divalproex, lamotrigine. 5. MRDD-resides in long term. 6. BPH-continue Flomax. DVT prophylaxis- heparin sc This patient was seen by RICARDO Chandler under the supervision of Dr. Ralph. <[place] - Last Filed: 12/09/19 16:12> - Physical Exam Vitals/I&O's: Vital Signs Temp Pulse Resp BP Pulse Ox 98 F 68 18 141/70 H 93 12/09/19 11:04 12/09/19 11:04 12/09/19 11:04 12/09/19 11:04 12/09/19 11:04 Oxygen Delivery Method Room Air Weight: 85.4 kg Body Mass Index (BMI) 25.5 Intake and Output for Last 24 Hours 12/07/19 12/08/19 12/09/19 23:59 23:59 23:59 Intake Total 2061.45 / 2061.45 1390.20 / 1390.20 Output Total 300 / 300 225 / 225 Balance 1761.45 / 1761.45 1165.20 / 1165.20 Microbiology Past 72 Hours 12/08/19 17:05 Urine, Catheterized Urine Culture - Preliminary Culture exhibits no growth. Laboratory Results 12/08/19 15:40: WBC 22.8 H, RBC 4.47 L, Hgb 14.3, Hct 45.2, MCV 101.1 H, MCH 32.0, MCHC 31.6 L, RDW Std Deviation 52.5 H, RDW Coeff of Stephany 13.9, Plt Count 155, MPV 12.0, Immature Gran % (Auto) 0.500, Neut % (Auto) 78.1 H, Lymph % (Auto) 12.2 L, Waldo % (Auto) 8.8, Eos % (Auto) 0.2, Baso % (Auto) 0.2, Absolute Neuts (auto) 17.8 H, Absolute Lymphs (auto) 2.78, Nucleated RBC % 0, Differential Comment SCANNED, Diff Path Review Reviewed 12/08/19 15:40: PT 16.3 H, INR 1.4, APTT 31.2 12/08/19 15:40: Sodium 138, Potassium 3.5, Chloride 102, Carbon Dioxide 27.0, Anion Gap 9, BUN 57 H, Creatinine 1.59 H, Estim Creat Clear Calc 0.00, Est GFR (MDRD) Af Amer 57 L, Est GFR (MDRD) Non-Af 47 L, BUN/Creatinine Ratio 35.8 H, Glucose 90, Calcium 10.9 H, Total Bilirubin 0.70, AST 43 H, ALT 27, Alkaline Phosphatase 88, Total Protein 7.8, Albumin 2.6 L, Globulin 5.2 H, Albumin/Globulin Ratio 0.5 L 12/08/19 15:40: Lipase 218 12/08/19 15:48: Lactic Acid 3.3 H* 12/08/19 17:05: Urine Color Yellow, Urine Clarity Sl. Cloudy, Urine pH 5.0, Ur Specific [place] 1.020, Urine Protein 15 H, Urine Glucose (UA) Normal, Urine Ketones 5 H, Urine Occult Blood Negative, Urine Nitrite Negative, Urine Bilirubin 1 H, Urine Urobilinogen 1 H, Ur Leukocyte Esterase 25 H, Urine RBC 0 SEEN, Urine WBC 0 SEEN, Ur Squamous Epith Cells 0-5 SEEN, Urine Bacteria RARE, Urine Mucus 0 SEEN 12/08/19 17:15: COVID-19 ([facility]URY) Negative 12/08/19 20:42: Lactic Acid 1.8 12/09/19 05:08: WBC 13.5 H, RBC 3.44 L, Hgb 11.2 L, Hct 34.3 L, MCV 99.7 H, MCH 32.6 H, MCHC 32.7, RDW Std Deviation 51.6 H, RDW Coeff of Stephany 13.9, Plt Count 135 L, MPV 11.6, Immature Gran % (Auto) 0.600, Neut % (Auto) 74.7 H, Lymph % (Auto) 16.4 L, Waldo % (Auto) 7.9, Eos % (Auto) 0.2, Baso % (Auto) 0.2, Absolute Neuts (auto) 10.1 H, Absolute Lymphs (auto) 2.21, Nucleated RBC % 0 12/09/19 05:08: Sodium 141, Potassium 3.4 L, Chloride 110 H, Carbon Dioxide 26.0, Anion Gap 5, BUN 53 H, Creatinine 0.97, Estim Creat Clear Calc 85.56, Est GFR (MDRD) Af Amer 100, Est GFR (MDRD) Non-Af 83, BUN/Creatinine Ratio 54.5 H, Glucose 71 L, Calcium 8.9, Total Bilirubin 0.50, AST 31, ALT 19, Alkaline Phosphatase 61, Total Protein 5.6 L, Albumin 1.8 L, Globulin 3.8, Albumin/Globulin Ratio 0.5 L Current Medications Acetaminophen (Tylenol) 650 mg PO Q6H PRN PRN PRN Reason: Pain Score 1-10/Temp > 100.7 F Divalproex Sodium (Depakote) 500 mg PO DAILY@1700 [facility] Divalproex Sodium (Depakote Er) 500 mg PO DAILY@0800 [facility] Heparin Sodium (Porcine) (Heparin Na) 5,000 unit SC Q12 [facility] Last Admin: 12/08/19 22:24 Dose: 5,000 unit Documented by: Sodium Chloride () 1,000 mls @ 100 mls/hr IV .Q10H [facility] Last Admin: 12/09/19 10:44 Dose: 100 mls/hr Documented by: Piperacillin Sod/Tazobactam (Sod 3.375 gm/ Sodium Chloride) 50 mls @ 12.5 mls/hr IV Q8 [facility] Last Infusion: 12/09/19 10:30 Dose: Infused Documented by: Famotidine 20 mg/ Sodium (Chloride) 10 mls @ 300 mls/hr IV Q12 [facility] Last Infusion: 12/09/19 10:49 Dose: Infused Documented by: Sodium Chloride () 250 mls @ 15 mls/hr IV .[id number] PRN PRN Reason: Saline Flush Sodium Chloride () 250 mls @ 15 mls/hr IV .[id number] PRN PRN Reason: Additional IVPB Infusion Sodium Chloride () 500 mls @ 0 mls/hr IV .Q0M [facility] Stop: 12/09/19 23:59 Lamotrigine (Lamictal) 50 mg PO BID [facility] Morphine Sulfate () 2 mg IV Q3H PRN PRN PRN Reason: Pain Score 6-10/10 Ondansetron HCl (Zofran) 4 mg IV Q8H PRN PRN PRN Reason: NAUSEA/VOMITING Sodium Chloride () 10 - 40 ml IV UD PRN PRN Reason: SALINE FLUSH Last Admin: 12/08/19 20:27 Dose: 10 ml Documented by: Tamsulosin HCl (Flomax) 0.4 mg PO QHS [facility] Last Admin: 12/08/19 22:24 Dose: 0.4 mg Documented by: Zonisamide (Zonisamide) 100 mg PO BID@0800,2000 [facility] Last Admin: 12/08/19 20:25 Dose: 100 mg Documented by: Assessment/Plan This patient was seen in conjunction with Irene Viramontes NP. I have independently interviewed and examined the patient and reviewed pertinent historical, laboratory, and other data. Please refer to her note for patient's presentation, findings, and recommendations. Patient was seen and examined. Unable to communicate on account of MRDD. No acute events overnight. Discussed with general surgery, cholecystostomy tube recommended after general surgery discussed with legal guardian. Vitals were reviewed -stable Physical Exam: Gen: Comfortable, not pale, not jaundiced, alert oriented x3 CVS:HS I +II, regular, no murmurs RESP: CTA GI: BS present and normal, nontender, no palpable organs EXT:No edema Labs reviewed: ASSESSMENT: 1. Acute cholecystitis 2. Acute kidney injury, resolved 3. Hypokalemia, replaced 4. Seizure disorder 5. MRDD 6. BPH Meds reviewed Plan: We will follow-up on general surgery recommendations Continue on IV Zosyn Repeat blood work in am Inpatient E&M: [id number] Subs Hosp L3
[2019-12-09 12:42] LABS: Pathologist Review Reviewed
[2019-12-09] MEDS: Midazolam 2 MG/2 ML Syringe IV ×2 (13:20→13:39)
[2019-12-09] MEDS: fentaNYL 100 MCG/2 ML Ampul IV ×2 (13:22→13:40)
--- NOTE | 2019-12-09 13:32 | CASEMGMT ---
ANI called Le with [facility] ([phone]) and left her a voice mail regarding patient and requested a return call. Jing ARRIAGA MSW
--- NOTE | 2019-12-09 14:19 | US_ITS ---
PROCEDURE: ULTRASOUND GUIDED CHOLECYSTOSTOMY TUBE PLACEMENT INDICATION: Male, 64 years old. Acute cholecystitis ULTRASOUND GUIDANCE CONSENT: The risks, benefits and alternatives to the procedure were explained to the patient, and the patient agreed to the procedure and signed the consent. SEDATION: Intermittent the intravenous and demonstration of Versed and fentanyl by nursing staff under continuous cardiopulmonary monitoring. Sedation less than approximately 30 minutes STERILE BARRIER TECHNIQUE: The following sterile barrier precautions were used during the procedure: hand hygiene; use of 2% chlorhexidine aseptic; use of a cap, mask, sterile gown, sterile gloves, sterile full body drape, and a large sterile sheet. PROCEDURE/TECHNIQUE: The risks, benefits, and alternatives to the procedure were explained to patient, and the patient agreed to the procedure and signed a consent form for the procedure. A timeout was performed to confirm the patient''s identity, the type of procedure, to be performed and the site of entry. Patient was positioned decubitus position on the CT scan table. Under US-guidance using sterile technique and after infiltration of the skin and subcutaneous soft tissues with 40 mL of lidocaine 1% 20-gauge needle was introduced in the gallbladder then 0.018 guidewire was advanced and the needle the needle was removed and a 4 Greek sheath was advanced over the guidewire then the existing guidewire is removed and a new 0.035 J-tip guidewire was advanced in the 4 Greek dilator then the 4 Greek guide is removed and the tract is serially dilated up to 8 Greek. An 8 Greek catheter is advanced over the guidewire and is coiled within the gallbladder. The drainage catheter is secured to the skin using an adhesive device and is attached to a bag for continuous drainage. There was no immediate complication. FINDINGS: Gallbladder was successfully drained with an 8 Greek catheter. US/Intraoperative Ultrasound IMPRESSION: Successful cholecystostomy tube placement under ultrasound guidance. Electronically Signed: Andree Rincon, at 14:38 EDT Tel , Service support ,
--- NOTE | 2019-12-09 15:46 | NURSING ---
Pt yelling at staff, not cooperating, attempting to move pt to CT table for a follow up image to ensure choleststostomy tube is in proper location. Anahi RN wear lead to attempt to calm pt during CT. Pt refuses to wear O2 to increase O2 saturation. Pt continually reassured he is almost done and will be back on his hospital bed shortly.
--- NOTE | 2019-12-09 15:52 | NURSING ---
Pt continues to refuse to wear O2 to increase O2 saturation. Pt continually yells at staff while getting CT images.
--- NOTE | 2019-12-09 15:53 | NURSING ---
Pt restless, pulling at wires and leads. Once pt is placed back on hospital bed, he remains comfortable and cooperative, denies pain.
[2019-12-09] MEDS: Divalproex Sodium 250 MG Tablet 500 MG PO (16:04)
--- NOTE | 2019-12-09 16:47 | PCM.PN.BLA ---
Progress Note Patient is definitely more alert than when he was seen in the emergency room last night. He does not voice any complaints. I have reviewed his post tube placement CT scan and confirm correct placement. The GISEL drain has been inspected and is clearly draining bile. We will continue to recommend conservative measures and will follow with you. Repeat laboratories pending tomorrow morning. Patient currently has an ileus related to this process. He was quiet and distended. I would be very cautious and racing to advance his diet. Billy Glynn M.D., F.A.C.S. STROKE Vital Signs/Narrative: Vital Signs Temp Pulse Pulse Pulse Pulse Pulse Resp 12/09/19 15:20 97.8 F 76 16 12/09/19 15:03 77 12/09/19 14:54 77 24 H 12/09/19 14:39 77 18 12/09/19 14:24 75 16 12/09/19 14:20 76 20 H 12/09/19 14:17 79 17 12/09/19 14:13 79 18 12/09/19 14:11 81 23 H 12/09/19 14:03 91 24 H 12/09/19 13:59 97 22 H 12/09/19 13:48 73 19 H 12/09/19 13:10 70 73 78 75 74 19 H Resp Resp Resp Resp BP BP BP 12/09/19 15:20 149/74 H 12/09/19 15:03 12/09/19 14:54 132/70 H 12/09/19 14:39 106/85 H 12/09/19 14:24 98/65 12/09/19 14:20 116/58 L 12/09/19 14:17 118/58 L 12/09/19 14:13 110/64 12/09/19 14:11 127/69 H 12/09/19 14:03 135/86 H 12/09/19 13:59 114/84 H 12/09/19 13:48 115/52 L 12/09/19 13:10 18 19 H 20 H 21 H 115/62 126/69 H 141/98 H BP BP Pulse Ox 12/09/19 15:20 92 12/09/19 15:03 12/09/19 14:54 92 12/09/19 14:39 91 12/09/19 14:24 91 12/09/19 14:20 92 12/09/19 14:17 91 12/09/19 14:13 90 12/09/19 14:11 91 12/09/19 14:03 88 12/09/19 13:59 89 12/09/19 13:48 96 12/09/19 13:10 122/79 H 99/55 L 95
[2019-12-09] MEDS: ZONISAMIDE 100 MG CAPSULE PO (20:30)
[2019-12-09] MEDS: 0.9% Saline Lock 10 ML Syringe IV (21:42)
[2019-12-09] MEDS: Tamsulosin HCl 0.4 MG Capsule PO (21:53)
[2019-12-09] MEDS: lamoTRIgine 100 MG Tablet 50 MG PO (21:53)
[2019-12-10] VITALS (8 sets, daily range): BP systolic 97–145; BP diastolic 56–75; PULSE 57–67; RESP 15–18; TEMP 36.4–36.6; O2SAT 93–97
--- NOTE | 2019-12-10 05:02 | NURSING ---
Pt c/o abdominal binder being too tight. Larger abdominal binder obtained and placed on patient.
--- NOTE | 2019-12-10 05:57 | PN.SURG_ITS ---
Patient Problems: Active and Suspected Problems Sepsis (Acute) Acute kidney injury (Acute) Acute cholecystitis (Acute) Subjective: By report the patient has been agitated by the abdominal binder. The binder is an attempt to keep the patient from pulling his cholecystostomy tube out. Apparently today he is not yet manipulated the tube. He is not otherwise demonstrated distress - Physical Exam Vitals/I&O's: Vital Signs Temp Pulse Resp BP Pulse Ox 97.5 F L 65 15 145/75 H 97 12/10/19 03:35 12/10/19 03:35 12/10/19 03:35 12/10/19 03:35 12/10/19 03:35 Oxygen Flow Rate (L/min) [4] 3 Oxygen Flow Rate (L/min) 3 Oxygen Delivery Method [4] Nasal Cannula Oxygen Delivery Method [3] Room Air Oxygen Delivery Method [2] Room Air Oxygen Delivery Method [1 ( Room Air Initial Baseline)] Oxygen Delivery Method Room Air Weight: 188 lb 4.396 oz Body Mass Index (BMI) 25.5 Intake and Output for Last 24 Hours 12/08/19 12/09/19 12/10/19 23:59 23:59 23:59 Intake Total 2061.45 / 2061.45 2535.20 / 2535.20 284.25 / 284.25 Output Total 300 / 300 1087 / 1087 186 / 186 Balance 1761.45 / 1761.45 1448.20 / 1448.20 98.25 / 98.25 General: Alert Lungs: Clear to auscultation Abdomen: Soft, Non Tender, Hypoactive Bowel Sounds, - - Cholecystostomy tube draining dark non-viscous bile Microbiology Past 72 Hours 12/08/19 17:05 Urine, Catheterized Urine Culture - Preliminary Culture exhibits no growth. Laboratory Results 12/08/19 15:40: Diff Path Review Reviewed Current Medications Acetaminophen (Tylenol) 650 mg PO Q6H PRN PRN PRN Reason: Pain Score 1-10/Temp > 100.7 F Divalproex Sodium (Depakote) 500 mg PO DAILY@1700 [facility] Last Admin: 12/09/19 16:04 Dose: 500 mg Documented by: Divalproex Sodium (Depakote Er) 500 mg PO DAILY@0800 [facility] Last Admin: 12/09/19 16:04 Dose: Not Given Documented by: Heparin Sodium (Porcine) (Heparin Na) 5,000 unit SC Q12 [facility] Last Admin: 12/08/19 22:24 Dose: 5,000 unit Documented by: Sodium Chloride () 1,000 mls @ 100 mls/hr IV .Q10H [facility] Last Admin: 12/09/19 21:37 Dose: 100 mls/hr Documented by: Piperacillin Sod/Tazobactam (Sod 3.375 gm/ Sodium Chloride) 50 mls @ 12.5 mls/hr IV Q8 [facility] Last Admin: 12/10/19 05:28 Dose: 12.5 mls/hr Documented by: Famotidine 20 mg/ Sodium (Chloride) 10 mls @ 300 mls/hr IV Q12 [facility] Last Infusion: 12/09/19 21:46 Dose: Infused Documented by: Sodium Chloride () 250 mls @ 15 mls/hr IV .[id number] PRN PRN Reason: Saline Flush Last Infusion: 12/10/19 05:28 Dose: 0 mls/hr Documented by: Sodium Chloride () 250 mls @ 15 mls/hr IV .[id number] PRN PRN Reason: Additional IVPB Infusion Lamotrigine (Lamictal) 50 mg PO BID [facility] Last Admin: 12/09/19 21:53 Dose: 50 mg Documented by: Morphine Sulfate () 2 mg IV Q3H PRN PRN PRN Reason: Pain Score 6-10/10 Ondansetron HCl (Zofran) 4 mg IV Q8H PRN PRN PRN Reason: NAUSEA/VOMITING Sodium Chloride () 10 - 40 ml IV UD PRN PRN Reason: SALINE FLUSH Last Admin: 12/09/19 21:42 Dose: 20 ml Documented by: Tamsulosin HCl (Flomax) 0.4 mg PO QHS [facility] Last Admin: 12/09/19 21:53 Dose: 0.4 mg Documented by: Zonisamide (Zonisamide) 100 mg PO BID@0800,1999 [facility] Last Admin: 12/09/19 20:30 Dose: 100 mg Documented by: Medical Necessity - Tobacco Use Smoking Status: Never smoker Assessment/Plan All Active Problems Sepsis (Acute) Acute kidney injury (Acute) Acute cholecystitis (Acute) Based upon vital signs and general appearance patient appears to be clinically stable. No report he had a bowel movement. He is tolerated a small amount of oral intake. Cholecystostomy tube functioning well. Recommend ongoing care as is. Will await laboratory. I would anticipate the cholecystostomy tube being in place for at least 1 week pending patient's progress. Therefore discharge planning will need to be consi dered. Pending future progress he might be considered for a laparoscopic cholecystectomy in 6 to 8 weeks pending legal guardian recommendations.
[2019-12-10 06:28] LABS: Hematocrit 31.3 % (40-54); Hemoglobin 10.2 g/dL (13.0-16.5); Mean Corp Hgb Conc 32.6 g/dL (32-36); Mean Corpuscular Volume 101.3 fL (80-94); Mean Platelet Vol. 11.6 fl (6.2-12.0); Platelet Count 152 K/mm3 (150-450); RBC Distribution Width CV 14.3 % (11.6-14.6); RBC Distribution Width SD 52.9 fl (35.1-43.9); Red Blood Count 3.09 M/mm3 (4.6-6.2); White Blood Count 7.5 K/mm3 (4.4-11.0)
[2019-12-10 06:51] LABS: Anion Gap 5 (5-15); BUN 37 mg/dL (7-18); BUN/Creat Ratio 54.3 RATIO (10-20); Calcium,Total 8.2 mg/dL (8.5-10.1); Chloride 114 mmol/L (98-107); Creatinine, Serum 0.68 mg/dL (0.70-1.30); EST Glomerular Filtration Rate 125 mL/min (>60); Est Glom Filt Rate - Afr Amer 151 mL/min (>60); Estimated Creatinine Clearance 122.04 ml/min; Glucose 77 mg/dL (74-106); Potassium 3.3 mmol/L (3.5-5.1); Sodium Level 143 mmol/L (136-145)
[2019-12-10] MEDS: 0.9% Normal Saline 1,000 ML 100 ML IV ×2 (08:29→17:59)
[2019-12-10] MEDS: Famotidine 200 MG/20 ML MDV 20 MG in 0.9% Normal Saline (Pres. free 8 ML 300 MG IV ×2 (08:31→21:20)
[2019-12-10] MEDS: 0.9% Saline Lock 10 ML Syringe IV (08:32)
[2019-12-10] MEDS: Heparin Injection (Vial) 5,000 UNIT/ML VIAL 5000 UNIT SC ×2 (08:35→21:13)
[2019-12-10] MEDS: ZONISAMIDE 100 MG CAPSULE PO ×2 (08:38→19:33)
[2019-12-10] MEDS: lamoTRIgine 100 MG Tablet 50 MG PO ×2 (08:38→21:13)
[2019-12-10] MEDS: Divalproex (ER) 500 MG Tablet PO (08:38)
--- NOTE | 2019-12-10 09:08 | CASEMGMT ---
ANI did not receive a return call from Le with [facility]. ANI called the [facility] and Machelle answered the phone. She was aware patient has a cholecystostomy tube and will have it for at least a week or more. She said it is fine for patient to return to the [facility] with the drain. They have nurses that come in and can check on patient. ANI told her we are going to have therapy see him today and that he may be discharged today. ANI asked her who should be contacted for pharmacy picking technician and Le said that would be her. ANI told her ANI would be in touch with her. Plan: Return to [facility] as long as patient can ambulate ok. Jing ARRIAGA CATTERY OPERATOR
--- NOTE | 2019-12-10 12:48 | PN_ITS ---
<Irene Viramontes - Last Filed: 12/10/19 12:53> Patient Problems: Active and Suspected Problems Sepsis (Acute) Acute kidney injury (Acute) Acute cholecystitis (Acute) Subjective: Patient seen and examined. Resting comfortably in bed. No acute events overnight. - Physical Exam Vitals/I&O's: Vital Signs Temp Pulse Resp BP Pulse Ox 97.7 F L 64 16 97/65 94 12/10/19 09:28 12/10/19 09:28 12/10/19 09:28 12/10/19 09:28 12/10/19 09:28 Oxygen Flow Rate (L/min) [4] 3 Oxygen Flow Rate (L/min) 3 Oxygen Delivery Method [4] Nasal Cannula Oxygen Delivery Method [3] Room Air Oxygen Delivery Method [2] Room Air Oxygen Delivery Method [1 ( Room Air Initial Baseline)] Oxygen Delivery Method Room Air Weight: 188 lb 4.396 oz Body Mass Index (BMI) 25.5 Intake and Output for Last 24 Hours 12/08/19 12/09/19 12/10/19 23:59 23:59 23:59 Intake Total 2061.45 / 2061.45 2535.20 / 2535.20 1294.25 / 1294.25 Output Total 300 / 300 1087 / 1087 186 / 186 Balance 1761.45 / 1761.45 1448.20 / 1448.20 1108.25 / 1108.25 General: Alert, Cooperative, No apparent distress, - HEENT: Atraumatic, PERRLA, EOMI, Normocephalic Oral: Dry Mucosa Neck: Supple, No JVD, Negative Carotid Bruits Lungs: Clear to auscultation, Normal air movement Cardiovascular: Regular rate, No murmurs Abdomen: Bowel Sounds Present, Soft, Non Tender, Non-Distended Extremities: No clubbing, No cyanosis, No edema, Capillary Refill Less than 3 Seconds Skin: No rashes, No breakdown Musculoskeletal: No Tenderness to Palpation of Joints or Extremities Neurological: Cranial nerves II-XII grossly intact, Neuro grossly intact Psych/Mental Status: Normal Affect, Appropriate Microbiology Past 72 Hours 12/09/19 Unknown Fluid - Other Gram Stain - Final 12/09/19 Unknown Fluid - Other Body Fluid Culture - Preliminary No growth-Final to follow 12/08/19 17:05 Urine, Catheterized Urine Culture - Preliminary Culture exhibits no growth. Laboratory Results 12/10/19 06:10: WBC 7.5, RBC 3.09 L, Hgb 10.2 L, Hct 31.3 L, MCV 101.3 H, MCH 33.0 H, MCHC 32.6, RDW Std Deviation 52.9 H, RDW Coeff of Stephany 14.3, Plt Count 152, MPV 11.6 12/10/19 06:10: Sodium 143, Potassium 3.3 L, Chloride 114 H, Carbon Dioxide 24.0, Anion Gap 5, BUN 37 H, Creatinine 0.68 L, Estim Creat Clear Calc 122.04, Est GFR (MDRD) Af Amer 151, Est GFR (MDRD) Non-Af 125, BUN/Creatinine Ratio 54.3 H, Glucose 77, Calcium 8.2 L Current Medications Acetaminophen (Tylenol) 650 mg PO Q6H PRN PRN PRN Reason: Pain Score 1-10/Temp > 100.7 F Divalproex Sodium (Depakote) 500 mg PO DAILY@1700 [facility] Last Admin: 12/09/19 16:04 Dose: 500 mg Documented by: Divalproex Sodium (Depakote Er) 500 mg PO DAILY@0800 [facility] Last Admin: 12/10/19 08:38 Dose: 500 mg Documented by: Heparin Sodium (Porcine) (Heparin Na) 5,000 unit SC Q12 [facility] Last Admin: 12/10/19 08:35 Dose: 5,000 unit Documented by: Sodium Chloride () 1,000 mls @ 100 mls/hr IV .Q10H [facility] Last Admin: 12/10/19 08:29 Dose: 100 mls/hr Documented by: Piperacillin Sod/Tazobactam (Sod 3.375 gm/ Sodium Chloride) 50 mls @ 12.5 mls/hr IV Q8 [facility] Last Admin: 12/10/19 05:28 Dose: 12.5 mls/hr Documented by: Famotidine 20 mg/ Sodium (Chloride) 10 mls @ 300 mls/hr IV Q12 [facility] Last Infusion: 12/10/19 09:02 Dose: Infused Documented by: Sodium Chloride () 250 mls @ 15 mls/hr IV .[id number] PRN PRN Reason: Saline Flush Last Infusion: 12/10/19 05:28 Dose: 0 mls/hr Documented by: Sodium Chloride () 250 mls @ 15 mls/hr IV .[id number] PRN PRN Reason: Additional IVPB Infusion Lamotrigine (Lamictal) 50 mg PO BID [facility] Last Admin: 12/10/19 08:38 Dose: 50 mg Documented by: Morphine Sulfate () 2 mg IV Q3H PRN PRN PRN Reason: Pain Score 6-10/10 Ondansetron HCl (Zofran) 4 mg IV Q8H PRN PRN PRN Reason: NAUSEA/VOMITING Sodium Chloride () 10 - 40 ml IV UD PRN PRN Reason: SALINE FLUSH Last Admin: 12/10/19 08:32 Dose: 10 ml Documented by: Tamsulosin HCl (Flomax) 0.4 mg PO QHS [facility] Last Admin: 12/09/19 21:53 Dose: 0.4 mg Documented by: Zonisamide (Zonisamide) 100 mg PO BID@0800,2000 [facility] Last Admin: 12/10/19 08:38 Dose: 100 mg Documented by: Medical Necessity - Tobacco Use Smoking Status: Never smoker Assessment/Plan All Active Problems Sepsis (Acute) Acute kidney injury (Acute) Acute cholecystitis (Acute) 1. Acute cholecystitis-General surgery, Dr. Glynn consulted. IV Zosyn. IV fluids. IV famotidine. PRN pain regimen. PRN antiemetics. Patient did not meet sepsis criteria. Cholecystostomy tube placed 12/09/2019. Advance diet as tolerated. Cultures pending. Anticipate discharge tomorrow. 2. Acute kidney injury-resolved with IV fluids. 3. Hypokalemia-replaced per protocol. Trend BMP. 4. History of seizure disorder-on divalproex, lamotrigine. 5. MRDD-resides in long-term. 6. BPH-continue Flomax. DVT prophylaxis- heparin sc This patient was seen by RICARDO Chandler under the supervision of Dr. Ralph. <Maria A Ralph - Last Filed: 12/10/19 14:19> - Physical Exam Vitals/I&O's: Vital Signs Temp Pulse Resp BP Pulse Ox 97.7 F L 64 16 97/65 94 12/10/19 09:28 12/10/19 09:28 12/10/19 09:28 12/10/19 09:28 12/10/19 09:28 Oxygen Flow Rate (L/min) [4] 3 Oxygen Flow Rate (L/min) 3 Oxygen Delivery Method [4] Nasal Cannula Oxygen Delivery Method [3] Room Air Oxygen Delivery Method [2] Room Air Oxygen Delivery Method [1 ( Room Air Initial Baseline)] Oxygen Delivery Method Room Air Weight: 85.4 kg Body Mass Index (BMI) 25.5 Intake and Output for Last 24 Hours 12/08/19 12/09/19 12/10/19 23:59 23:59 23:59 Intake Total 2061.45 / 2061.45 2535.20 / 2535.20 1344.25 / 1344.25 Output Total 300 / 300 1087 / 1087 186 / 186 Balance 1761.45 / 1761.45 1448.20 / 1448.20 1158.25 / 1158.25 Microbiology Past 72 Hours 12/09/19 Unknown Fluid - Other Gram Stain - Final 12/09/19 Unknown Fluid - Other Body Fluid Culture - Preliminary No growth-Final to follow 12/08/19 17:05 Urine, Catheterized Urine Culture - Preliminary Culture exhibits no growth. Laboratory Results 12/10/19 06:10: WBC 7.5, RBC 3.09 L, Hgb 10.2 L, Hct 31.3 L, MCV 101.3 H, MCH 33.0 H, MCHC 32.6, RDW Std Deviation 52.9 H, RDW Coeff of Stephany 14.3, Plt Count 152, MPV 11.6 12/10/19 06:10: Sodium 143, Potassium 3.3 L, Chloride 114 H, Carbon Dioxide 24.0, Anion Gap 5, BUN 37 H, Creatinine 0.68 L, Estim Creat Clear Calc 122.04, Est GFR (MDRD) Af Amer 151, Est GFR (MDRD) Non-Af 125, BUN/Creatinine Ratio 54.3 H, Glucose 77, Calcium 8.2 L Current Medications Acetaminophen (Tylenol) 650 mg PO Q6H PRN PRN PRN Reason: Pain Score 1-10/Temp > 100.7 F Divalproex Sodium (Depakote) 500 mg PO DAILY@1700 [facility] Last Admin: 12/09/19 16:04 Dose: 500 mg Documented by: Divalproex Sodium (Depakote Er) 500 mg PO DAILY@0800 [facility] Last Admin: 12/10/19 08:38 Dose: 500 mg Documented by: Heparin Sodium (Porcine) (Heparin Na) 5,000 unit SC Q12 [facility] Last Admin: 12/10/19 08:35 Dose: 5,000 unit Documented by: Sodium Chloride () 1,000 mls @ 100 mls/hr IV .Q10H [facility] Last Admin: 12/10/19 08:29 Dose: 100 mls/hr Documented by: Piperacillin Sod/Tazobactam (Sod 3.375 gm/ Sodium Chloride) 50 mls @ 12.5 mls/hr IV Q8 [facility] Last Admin: 12/10/19 13:56 Dose: 12.5 mls/hr Documented by: Famotidine 20 mg/ Sodium (Chloride) 10 mls @ 300 mls/hr IV Q12 [facility] Last Infusion: 12/10/19 09:02 Dose: Infused Documented by: Sodium Chloride () 250 mls @ 15 mls/hr IV .[id number] PRN PRN Reason: Saline Flush Last Infusion: 12/10/19 05:28 Dose: 0 mls/hr Documented by: Sodium Chloride () 250 mls @ 15 mls/hr IV .[id number] PRN PRN Reason: Additional IVPB Infusion Lamotrigine (Lamictal) 50 mg PO BID [facility] Last Admin: 12/10/19 08:38 Dose: 50 mg Documented by: Morphine Sulfate () 2 mg IV Q3H PRN PRN PRN Reason: Pain Score 6-10/10 Ondansetron HCl (Zofran) 4 mg IV Q8H PRN PRN PRN Reason: NAUSEA/VOMITING Sodium Chloride () 10 - 40 ml IV UD PRN PRN Reason: SALINE FLUSH Last Admin: 12/10/19 08:32 Dose: 10 ml Documented by: Tamsulosin HCl (Flomax) 0.4 mg PO QHS [facility] Last Admin: 12/09/19 21:53 Dose: 0.4 mg Documented by: Zonisamide (Zonisamide) 100 mg PO BID@0800,2000 [facility] Last Admin: 12/10/19 08:38 Dose: 100 mg Documented by: Assessment/Plan This patient was seen in conjunction with Irene Viramontes NP. I have ind ependently interviewed and examined the patient and reviewed pertinent historical, laboratory, and other data. Please refer to her note for patient's presentation, findings, and recommendations. Patient was seen and examined. Patient is status post cholecystostomy tube. No acute events overnight. Patient appears to have some discomfort with abdominal binder overnight. Vitals were reviewed -stable Physical Exam: Gen: Comfortable, not pale, not jaundiced, alert oriented x3 CVS:HS I +II, regular, no murmurs RESP: CTA GI: BS present and normal, nontender, no palpable organs EXT:No edema Labs reviewed: ASSESSMENT: 1. Acute cholecystitis 2. Acute kidney injury, resolved 3. Hypokalemia, replaced 4. Seizure disorder 5. MRDD 6. BPH Meds reviewed Plan: We will continue to follow-up on blood cultures and cholecystostomy fluid cultures Continue on IV Zosyn Inpatient E&M: 53391 Subs Hosp L2
--- NOTE | 2019-12-10 13:53 | CASEMGMT ---
ANI called Le with [facility]. ANI let her know patient will not be discharged today and maybe tomorrow. ANI then went over therapy notes with her and they do not look good. He was a dependent assist of 2-3. ANI faxed PT/OT evaluations to Gabrielle with [facility] per Le's request. She will talk with Gabrielle and they will let ANI know if they are able to take him back or not. ANI will need to contact the guardian if they cannot take him back in his weakened state to see which SNF he would prefer. Await return call from [facility]. Jing ARRIAGA CUTTER OPERATOR TILE
[2019-12-10] MEDS: Divalproex Sodium 250 MG Tablet 500 MG PO (17:57)
[2019-12-10] MEDS: Tamsulosin HCl 0.4 MG Capsule PO (21:13)
[2019-12-11] VITALS (8 sets, daily range): BP systolic 106–126; BP diastolic 48–65; PULSE 60–70; RESP 16–18; TEMP 36.4–36.9; O2SAT 93–99
[2019-12-11] MEDS: 0.9% Normal Saline 1,000 ML 100 ML IV (03:59)
--- NOTE | 2019-12-11 05:58 | PCM.PN.SRG ---
Patient Problems: Active and Suspected Problems Sepsis (Acute) Acute kidney injury (Acute) Acute cholecystitis (Acute) Subjective: Pt seems comfortable - Physical Exam Vitals/I&O's: Vital Signs Temp Pulse Resp BP Pulse Ox 98.1 F 68 18 121/65 H 99 12/11/19 03:10 12/11/19 03:10 12/11/19 03:10 12/11/19 03:10 12/11/19 03:10 Oxygen Flow Rate (L/min) [4] 3 Oxygen Flow Rate (L/min) 3 Oxygen Delivery Method [4] Nasal Cannula Oxygen Delivery Method [3] Room Air Oxygen Delivery Method [2] Room Air Oxygen Delivery Method [1 ( Room Air Initial Baseline)] Oxygen Delivery Method Room Air Weight: 188 lb 4.396 oz Body Mass Index (BMI) 25.5 Intake and Output for Last 24 Hours 12/09/19 12/10/19 12/11/19 23:59 23:59 23:59 Intake Total 2535.20 / 2535.20 3747.54 / 3747.54 448.54 / 448.54 Output Total 1087 / 1087 356 / 356 600 / 600 Balance 1448.20 / 1448.20 3391.54 / 3391.54 -151.46 / -151.46 Abdomen: Soft, Non Tender Microbiology Past 72 Hours 12/09/19 Unknown Fluid - Other Gram Stain - Final 12/09/19 Unknown Fluid - Other Body Fluid Culture - Preliminary No growth-Final to follow 12/08/19 17:05 Urine, Catheterized Urine Culture - Preliminary Culture exhibits no growth. Laboratory Results 12/10/19 06:10: WBC 7.5, RBC 3.09 L, Hgb 10.2 L, Hct 31.3 L, MCV 101.3 H, MCH 33.0 H, MCHC 32.6, RDW Std Deviation 52.9 H, RDW Coeff of Stephany 14.3, Plt Count 152, MPV 11.6 12/10/19 06:10: Sodium 143, Potassium 3.3 L, Chloride 114 H, Carbon Dioxide 24.0, Anion Gap 5, BUN 37 H, Creatinine 0.68 L, Estim Creat Clear Calc 122.04, Est GFR (MDRD) Af Amer 151, Est GFR (MDRD) Non-Af 125, BUN/Creatinine Ratio 54.3 H, Glucose 77, Calcium 8.2 L Current Medications Acetaminophen (Tylenol) 650 mg PO Q6H PRN PRN PRN Reason: Pain Score 1-10/Temp > 100.7 F Divalproex Sodium (Depakote) 500 mg PO DAILY@1700 [facility] Last Admin: 12/10/19 17:57 Dose: 500 mg Documented by: Divalproex Sodium (Depakote Er) 500 mg PO DAILY@0800 [facility] Last Admin: 12/10/19 08:38 Dose: 500 mg Documented by: Heparin Sodium (Porcine) (Heparin Na) 5,000 unit SC Q12 [facility] Last Admin: 12/10/19 21:13 Dose: 5,000 unit Documented by: Sodium Chloride () 1,000 mls @ 100 mls/hr IV .Q10H [facility] Last Admin: 12/11/19 03:59 Dose: 100 mls/hr Documented by: Piperacillin Sod/Tazobactam (Sod 3.375 gm/ Sodium Chloride) 50 mls @ 12.5 mls/hr IV Q8 [facility] Last Admin: 12/11/19 05:00 Dose: 12.5 mls/hr Documented by: Famotidine 20 mg/ Sodium (Chloride) 10 mls @ 300 mls/hr IV Q12 [facility] Last Infusion: 12/10/19 21:23 Dose: Infused Documented by: Sodium Chloride () 250 mls @ 15 mls/hr IV .[id number] PRN PRN Reason: Saline Flush Last Infusion: 12/10/19 21:24 Dose: 0 mls/hr Documented by: Sodium Chloride () 250 mls @ 15 mls/hr IV .[id number] PRN PRN Reason: Additional IVPB Infusion Lamotrigine (Lamictal) 50 mg PO BID [facility] Last Admin: 12/10/19 21:13 Dose: 50 mg Documented by: Morphine Sulfate () 2 mg IV Q3H PRN PRN PRN Reason: Pain Score 6-10/10 Ondansetron HCl (Zofran) 4 mg IV Q8H PRN PRN PRN Reason: NAUSEA/VOMITING Sodium Chloride () 10 - 40 ml IV UD PRN PRN Reason: SALINE FLUSH Last Admin: 12/10/19 08:32 Dose: 10 ml Documented by: Tamsulosin HCl (Flomax) 0.4 mg PO QHS [facility] Last Admin: 12/10/19 21:13 Dose: 0.4 mg Documented by: Zonisamide (Zonisamide) 100 mg PO BID@0800,1999 [facility] Last Admin: 12/10/19 19:33 Dose: 100 mg Documented by: Medical Necessity - Tobacco Use Smoking Status: Never smoker Assessment/Plan All Active Problems Sepsis (Acute) Acute kidney injury (Acute) Acute cholecystitis (Acute) Pigtail draining bile, abdomen benign Poor oral intake, bulb had been loosened from the tubing Pt will need better oral intake, labs pending, he had severe dehydration and SHONDA If he is discharged I need to see him in 10-14 days Drain will remain while awaiting decreased inflammation. Surgery at approximately 6 weeks
[2019-12-11 06:19] LABS: Anion Gap 4 (5-15); BUN 21 mg/dL (7-18); Calcium,Total 8.2 mg/dL (8.5-10.1); Chloride 115 mmol/L (98-107); Creatinine, Serum 0.72 mg/dL (0.70-1.30); EST Glomerular Filtration Rate 116 mL/min (>60); Est Glom Filt Rate - Afr Amer 141 mL/min (>60); Estimated Creatinine Clearance 115.26 ml/min; Glucose 75 mg/dL (74-106); Potassium 3.7 mmol/L (3.5-5.1); Sodium Level 143 mmol/L (136-145)
[2019-12-11] MEDS: Heparin Injection (Vial) 5,000 UNIT/ML VIAL 5000 UNIT SC ×2 (08:21→21:06)
[2019-12-11] MEDS: Famotidine 200 MG/20 ML MDV 20 MG in 0.9% Normal Saline (Pres. free 8 ML 300 MG IV ×2 (08:21→21:06)
[2019-12-11] MEDS: lamoTRIgine 100 MG Tablet 50 MG PO ×2 (08:22→21:06)
[2019-12-11] MEDS: Divalproex (ER) 500 MG Tablet PO (08:22)
[2019-12-11] MEDS: ZONISAMIDE 100 MG CAPSULE PO ×2 (08:22→19:33)
--- NOTE | 2019-12-11 09:10 | CASEMGMT ---
Addendum entered by Jing Pete 12/11/19 12:11: ANI received a call from Le at the [facility]. She said that their director and nursing said they could take patient back as they do have a james lift. ANI told her the physicians would like for patient to go to a detention, but SW is going to call the guardian to see what he wants. ANI called [facility] and left a voice mail requesting a return call regarding patient. ANI received a return call from Malini Bishop with [facility]. (could not understand her first name after asking 3 times). She is covering for patient's guardian as he is on medical leave. SW explained situation and she said she would get in contact with patient's guardian as he knows patient better than her. She then called SW back and patient's guardian said they prefer with going with the doctor's recommendation of SNF. She said they rely on the hospital's recommendations for which SNF. ANI told her ANI will fax referrals to 3 places and get back with her on the options. Her direct number is [phone] Ext. [phone]. ANI then called [facility] and left a message regarding referral as well as faxed referral. ANI also called [facility] left a message regarding referral and faxed referral. ANI also did the same with [place]. Await responses. ANI then called Le at the [facility] and let her know the guardian is going with what the physician is recommending which is SNF. She thanked ANI for letting her know. ANI told her SW will let them know which facility he ends up going to. Await responses from facilities. Jing FERRARO Original Note: ANI called Le at the [facility] and asked if they have decided on taking patient back or not. She said the nurse reviewed the paperwork last night and she has not had a chance to call her back. She asked SW give her until 10a and she will find out and get back to ANI. Jing ARRIAGA MSW
--- NOTE | 2019-12-11 10:16 | PN_ITS ---
Patient Problems: Active and Suspected Problems Sepsis (Acute) Acute kidney injury (Acute) Acute cholecystitis (Acute) Reason for Visit: Follow-up on acute cholecystitis. Subjective: Patient was seen and examined. No new events overnight. Discharge planning in process to [facility] snf facility, as patient is a 2-3 person assist. Objective: Physical exam: General: Alert, Cooperative, No apparent distress, - HEENT: Atraumatic, PERRLA, EOMI, Normocephalic Oral: Dry Mucosa Neck: Supple, No JVD, Negative Carotid Bruits Lungs: Clear to auscultation, Normal air movement Cardiovascular: Regular rate, No murmurs Abdomen: Bowel Sounds Present, Soft, Non Tender, Non-Distended Extremities: No clubbing, No cyanosis, No edema, Capillary Refill Less than 3 Seconds Skin: No rashes, No breakdown Musculoskeletal: No Tenderness to Palpation of Joints or Extremities Neurological: Cranial nerves II-XII grossly intact, Neuro grossly intact Psych/Mental Status: Normal Affect, Appropriate Vitals/I&O's: Vital Signs Temp Pulse Resp BP Pulse Ox 97.5 F L 67 16 106/50 L 95 12/11/19 09:10 12/11/19 09:10 12/11/19 09:10 12/11/19 09:10 12/11/19 09:10 Oxygen Flow Rate (L/min) [4] 3 Oxygen Flow Rate (L/min) 3 Oxygen Delivery Method [4] Nasal Cannula Oxygen Delivery Method [3] Room Air Oxygen Delivery Method [2] Room Air Oxygen Delivery Method [1 ( Room Air Initial Baseline)] Oxygen Delivery Method Room Air Weight: 85.4 kg Body Mass Index (BMI) 25.5 Intake and Output for Last 24 Hours 12/09/19 12/10/19 12/11/19 23:59 23:59 23:59 Intake Total 2535.20 / 2535.20 3747.54 / 3747.54 710.21 / 710.21 Output Total 1087 / 1087 356 / 356 600 / 600 Balance 1448.20 / 1448.20 3391.54 / 3391.54 110.21 / 110.21 Microbiology Past 72 Hours 12/09/19 Unknown Fluid - Other Gram Stain - Final 12/09/19 Unknown Fluid - Other Body Fluid Culture - Preliminary No growth-Final to follow 12/08/19 16:05 Blood Culture (Wb) - Left Hand Blood Culture - Preliminary No growth in 48 hours. 12/08/19 15:48 Blood Culture (Wb) - Anticubital Right Blood Culture - Preliminary No growth in 48 hours. 12/08/19 17:05 Urine, Catheterized Urine Culture - Final Culture exhibits no growth. Laboratory Results 12/11/19 05:45: Sodium 143, Potassium 3.7, Chloride 115 H, Carbon Dioxide 24.0, Anion Gap 4 L, BUN 21 H, Creatinine 0.72, Estim Creat Clear Calc 115.26, Est GFR (MDRD) Af Amer 141, Est GFR (MDRD) Non-Af 116, BUN/Creatinine Ratio 29.0 H, Glucose 75, Calcium 8.2 L Current Medications Acetaminophen (Tylenol) 650 mg PO Q6H PRN PRN PRN Reason: Pain Score 1-10/Temp > 100.7 F Divalproex Sodium (Depakote) 500 mg PO DAILY@1700 [facility] Last Admin: 12/10/19 17:57 Dose: 500 mg Documented by: Divalproex Sodium (Depakote Er) 500 mg PO DAILY@0800 [facility] Last Admin: 12/11/19 08:22 Dose: 500 mg Documented by: Heparin Sodium (Porcine) (Heparin Na) 5,000 unit SC Q12 [facility] Last Admin: 12/11/19 08:21 Dose: 5,000 unit Documented by: Sodium Chloride () 1,000 mls @ 100 mls/hr IV .Q10H [facility] Last Infusion: 12/11/19 06:00 Dose: 100 mls/hr Documented by: Piperacillin Sod/Tazobactam (Sod 3.375 gm/ Sodium Chloride) 50 mls @ 12.5 mls/hr IV Q8 [facility] Last Infusion: 12/11/19 09:04 Dose: Infused Documented by: Famotidine 20 mg/ Sodium (Chloride) 10 mls @ 300 mls/hr IV Q12 [facility] Last Infusion: 12/11/19 08:34 Dose: Infused Documented by: Sodium Chloride () 250 mls @ 15 mls/hr IV .[id number] PRN PRN Reason: Saline Flush Last Infusion: 12/11/19 09:04 Dose: 15 mls/hr Documented by: Sodium Chloride () 250 mls @ 15 mls/hr IV .[id number] PRN PRN Reason: Additional IVPB Infusion Lamotrigine (Lamictal) 50 mg PO BID [facility] Last Admin: 12/11/19 08:22 Dose: 50 mg Documented by: Morphine Sulfate () 2 mg IV Q3H PRN PRN PRN Reason: Pain Score 6-10/10 Ondansetron HCl (Zofran) 4 mg IV Q8H PRN PRN PRN Reason: NAUSEA/VOMITING Sodium Chloride () 10 - 40 ml IV UD PRN PRN Reason: SALINE FLUSH Last Admin: 12/10/19 08:32 Dose: 10 ml Documented by: Tamsulosin HCl (Flomax) 0.4 mg PO QHS [facility] Last Admin: 12/10/19 21:13 Dose: 0.4 mg Documented by: Zonisamide (Zonisamide) 100 mg PO BID@0800,1999 [facility] Last Admin: 12/11/19 08:22 Dose: 100 mg Documented by: STROKE Vital Signs/Narrative: Vital Signs Temp Pulse Resp BP Pulse Ox 12/11/19 09:10 97.5 F L 67 16 106/50 L 95 12/11/19 06:50 65 Medical Necessity - Tobacco Use Smoking Status: Never smoker Assessment/Plan All Active Problems Sepsis (Acute) Acute kidney injury (Acute) Acute cholecystitis (Acute) 1. Acute cholecystitis, status post cholecystectomy tube(POD #2), bilious fluid in bulb Blood cultures are negative x48 hours, Gram stain from biliary fluid shows no growth to date On IV Zosyn(day 4 antibiotics). We will switch to p.o. Augmentin in a.m. for a total of 7-10 days. General surgery following; laparoscopic cholecystectomy planned in 6 weeks. 2. Acute kidney injury, resolved, patient is having adequate oral input with good urine output Will repeat blood work in a.m. 3. Hypokalemia, replaced, resolved 4. Seizure disorder, stable, no seizures seen in this admission, continue on Depakote 5. Debility, patient with MRDD, complicates discharge planning, Discharge planning in the works 6. DVT prophylaxis with heparin subcu Inpatient E&M: 90021 Subs Hosp L2
--- NOTE | 2019-12-11 10:17 | PCM.TXEXTCAR ---
- Diet 12/09/19 15:36 Diet: Full Liquid Is pt able to select menu?: No - Routine Orders/Code Status Keep PO Greater than or Equal to (%): 94 Routine Lab Work: CBC - within 3 days, BMP - within 3 days Code Status: Full Code - Wound(s) Hematoma, left hip Wound Type: Hematoma - Therapies Weight Bearing: Weight bearing as tolerated Physical Therapy: Eval and Treat Occupational Therapy: Eval and Treat - Allergies/Procedures Done in Hospital Allergies/Adverse Reactions: Allergies camphor [From Vicks Vaporub] Allergy (Verified 10/23/19 19:32) Other clobazam [From Onfi] Allergy (Verified 10/23/19 19:32) Other eucalyptus [From Vicks Vaporub] Allergy (Verified 10/23/19 19:32) Other eucalyptus oil [From Vicks Vaporub] Allergy (Verified 10/23/19 19:32) Other levetiracetam [From Keppra] Allergy (Verified 10/23/19 19:32) Other menthol [From Vicks Vaporub] Allergy (Verified 10/23/19 19:32) Other petrolatum,white [From Vicks Vaporub] Allergy (Verified 10/23/19 19:32) Other turpentine oil [From Vicks Vaporub] Allergy (Verified 10/23/19 19:32) Other Procedures: - - CT guided cholecystostomy 12/11/19 - Type of Care/Length of Stay Estimated LOS: Convalescent Care Less Than 30 days Type of Care Needed: Skilled Rehab Potential: Fair Prognosis: Fair - Additional Orders/Day of Discharge Day of Discharge: 12/11/19 - Dietary and Speech Recommendations Dietitian Recommendations/Changes: Advance diet as tolerated to transitional. - Follow Up Care Primary Care Physician: Jesus Noble MD [Primary Care Provider] - Please follow up with your Primary Care Physician in: within 2 weeks of discharge from SNF Please Follow Up With: Cleveland Oconnor PA
--- NOTE | 2019-12-11 12:57 | CASEMGMT ---
SW received a call from [facility] and they can accept patient. SW told her SW has referrals out to 2 other facilities and then SW will call the guardian. SW will get back to her. ANI then received a call from [facility] and only a few random pages made it through. ANI then re-faxed the referral to [facility]. Jing ARRIAGA MSW
[2019-12-11] MEDS: Amox/Clavulanate 875 MG Tablet PO ×2 (13:17→21:12)
--- NOTE | 2019-12-11 14:14 | CASEMGMT ---
ANI received a call from Lucila with [facility]. She is one of the supervisors. She said she received [facility] that [facility] do not want patient to go to a fpc. ANI went over ANI's conversations with [facility] and Marium with [facility]. She said that is correct, and she confirmed they are not going against what the physician is recommending. They are still planning on SNF for patient at discharge. She said ANI can call her or Marium with the accepting facilities. Lucila's direct number is [phone]. ANI did then get a call from Suad at [facility] and they can also accept patient. ANI is now waiting on [facility]. Jing ARRIAGA MSW
--- NOTE | 2019-12-11 15:13 | CASEMGMT ---
ANI received a call from [facility] and answered their questions. They would not say yes until the Instrument Maintenance Supervisor could see the convalescent or [facility]. ANI explained SW cannot do this before they would accept him as SW has to fill in the accepting facility. ANI told them SW will let them know what the guardian chooses. ANI called Marium, the covering guardian and she was not available. ANI called Lucila the phlebotomist supervisor/instructor from [employer] [facility] SW spoke with earlier. ANI let her know [facility], [place], and [place] have accepted patient. It was decided [facility] would be fine. ANI let her know that this would likely be tomorrow that patient would go to [facility]. ANI called [facility] and left a voice mail for Keila letting her know that the guardian is in agreement with patient coming to their facility. ANI told her it would not be today as SW still has to get the level of care. ANI asked for a return call verifying she received the message. ANI faxed all necessary information to [facility] to obtain a level of care. Await level of care and then patient can be discharged to [facility]. ANI also called Le at the long term and notified her that patient will be going to [facility] tomorrow. She asked that we call her when he is leaving. ANI told her that he will be in quarantine for 14 days at [facility] and then after that they arrange outside visits. She thanked for the update. ANI also updated RN and secretary administrative assistant. Plan: [facility] pending receipt of level of care. Jing ARRIAGA MSW
[2019-12-11] MEDS: Divalproex Sodium 250 MG Tablet 500 MG PO (17:03)
[2019-12-11] MEDS: 0.9% Saline Lock 10 ML Syringe IV (21:06)
[2019-12-11] MEDS: Tamsulosin HCl 0.4 MG Capsule PO (21:06)
[2019-12-12 02:55] VITALS: PULSE 69
[2019-12-12 03:05] VITALS: BP 139/68; PULSE 72; RESP 16; TEMP 36.3; O2SAT 94
--- NOTE | 2019-12-12 06:05 | PN.SURG_ITS ---
Patient Problems: Active and Suspected Problems Sepsis (Acute) Acute kidney injury (Acute) Acute cholecystitis (Acute) Subjective: Patient appears to be comfortable. - Physical Exam Vitals/I&O's: Vital Signs Temp Pulse Resp BP Pulse Ox 97.4 F L 72 16 139/68 H 94 12/12/19 03:05 12/12/19 03:05 12/12/19 03:05 12/12/19 03:05 12/12/19 03:05 Oxygen Flow Rate (L/min) [4] 3 Oxygen Flow Rate (L/min) 3 Oxygen Delivery Method [4] Nasal Cannula Oxygen Delivery Method [3] Room Air Oxygen Delivery Method [2] Room Air Oxygen Delivery Method [1 ( Room Air Initial Baseline)] Oxygen Delivery Method Room Air Weight: 188 lb 4.396 oz Body Mass Index (BMI) 25.5 Intake and Output for Last 24 Hours 12/10/19 12/11/19 12/12/19 23:59 23:59 23:59 Intake Total 3747.54 / 3747.54 2303.04 / 2303.04 75 / 75 Output Total 356 / 356 1625 / 1625 600 / 600 Balance 3391.54 / 3391.54 678.04 / 678.04 -525 / -525 Abdomen: Soft, Non Tender - Cholecystostomy tube draining bile Microbiology Past 72 Hours 12/09/19 Unknown Fluid - Other Gram Stain - Final 12/09/19 Unknown Fluid - Other Body Fluid Culture - Preliminary No growth-Final to follow 12/08/19 16:05 Blood Culture (Wb) - Left Hand Blood Culture - Preliminary No growth in 48 hours. 12/08/19 15:48 Blood Culture (Wb) - Anticubital Right Blood Culture - Preliminary No growth in 48 hours. 12/08/19 17:05 Urine, Catheterized Urine Culture - Final Culture exhibits no growth. Laboratory Results 12/11/19 05:45: Sodium 143, Potassium 3.7, Chloride 115 H, Carbon Dioxide 24.0, Anion Gap 4 L, BUN 21 H, Creatinine 0.72, Estim Creat Clear Calc 115.26, Est GFR (MDRD) Af Amer 141, Est GFR (MDRD) Non-Af 116, BUN/Creatinine Ratio 29.0 H, Glucose 75, Calcium 8.2 L Current Medications Acetaminophen (Tylenol) 650 mg PO Q6H PRN PRN PRN Reason: Pain Score 1-10/Temp > 100.7 F Amoxicillin/Clavulanate Potassium (Augmentin Tablet) 875 mg PO BID [facility] Last Admin: 12/11/19 21:12 Dose: 875 mg Documented by: Divalproex Sodium (Depakote) 500 mg PO DAILY@1700 [facility] Last Admin: 12/11/19 17:03 Dose: 500 mg Documented by: Divalproex Sodium (Depakote Er) 500 mg PO DAILY@0800 [facility] Last Admin: 12/11/19 08:22 Dose: 500 mg Documented by: Heparin Sodium (Porcine) (Heparin Na) 5,000 unit SC Q12 [facility] Last Admin: 12/11/19 21:06 Dose: 5,000 unit Documented by: Famotidine 20 mg/ Sodium (Chloride) 10 mls @ 300 mls/hr IV Q12 [facility] Last Infusion: 12/11/19 21:08 Dose: Infused Documented by: Sodium Chloride () 250 mls @ 15 mls/hr IV .[id number] PRN PRN Reason: Saline Flush Last Infusion: 12/11/19 13:02 Dose: Infused Documented by: Sodium Chloride () 250 mls @ 15 mls/hr IV .[id number] PRN PRN Reason: Additional IVPB Infusion Lamotrigine (Lamictal) 50 mg PO BID [facility] Last Admin: 12/11/19 21:06 Dose: 50 mg Documented by: Morphine Sulfate () 2 mg IV Q3H PRN PRN PRN Reason: Pain Score 6-10/10 Ondansetron HCl (Zofran) 4 mg IV Q8H PRN PRN PRN Reason: NAUSEA/VOMITING Sodium Chloride () 10 - 40 ml IV UD PRN PRN Reason: SALINE FLUSH Last Admin: 12/11/19 21:06 Dose: 10 ml Documented by: Tamsulosin HCl (Flomax) 0.4 mg PO QHS [facility] Last Admin: 12/11/19 21:06 Dose: 0.4 mg Documented by: Zonisamide (Zonisamide) 100 mg PO BID@0800,2000 [facility] Last Admin: 12/11/19 19:33 Dose: 100 mg Documented by: Medical Necessity - Tobacco Use Smoking Status: Never smoker Assessment/Plan All Active Problems Sepsis (Acute) Acute kidney injury (Acute) Acute cholecystitis (Acute) 3 days into his hospital stay having presented with severe dehydration and acute kidney injury his BUN yesterday still had just improved to 21. Clinical exam of his abdomen is not remarkable. Cholecystostomy tube remains in good position. Diet has been advanced. Ongoing medical care. Office follow-up recommended in 10 to 14 days Billy Glynn M.D., F.A.C.S.
[2019-12-12 06:49] VITALS: PULSE 66
[2019-12-12 08:20] LABS: Hemoglobin 10.8 g/dL (13.0-16.5); Mean Corp Hgb Conc 32.7 g/dL (32-36); Mean Corpuscular Hgb 32.6 pg (27.0-32.0); Mean Corpuscular Volume 99.7 fL (80-94); Mean Platelet Vol. 10.8 fl (6.2-12.0); POSITIVE COUNT YES; POSITIVE MORPHOLOGY YES; Platelet Count 223 K/mm3 (150-450); RBC Distribution Width CV 13.9 % (11.6-14.6); RBC Distribution Width SD 50.8 fl (35.1-43.9); Red Blood Count 3.31 M/mm3 (4.6-6.2); White Blood Count 8.7 K/mm3 (4.4-11.0)
[2019-12-12 08:33] LABS: ALB/GLOB Ratio 0.5 RATIO (0.9-2.4); AST(SGOT) 46 U/L (15-37); Alanine Aminotransfer ALT/SGPT 33 U/L (16-61); Albumin, Serum 1.9 g/dL (3.2-5.0); Alkaline Phosphatase 90 U/L (45-117); Anion Gap 4 (5-15); BUN 14 mg/dL (7-18); Calcium,Total 8.7 mg/dL (8.5-10.1); Chloride 116 mmol/L (98-107); Creatinine, Serum 0.78 mg/dL (0.70-1.30); EST Glomerular Filtration Rate 107 mL/min (>60); Est Glom Filt Rate - Afr Amer 130 mL/min (>60); Globulin 3.9 g/dL (2.2-4.2); Glucose 88 mg/dL (74-106); Protein, Total 5.8 g/dL (6.4-8.2); Sodium Level 144 mmol/L (136-145)
[2019-12-12 08:45] LABS: Differential Indicated MANUAL DIFF
[2019-12-12 09:06] LABS: Eosinophil 4 % (0-5); Lymphocyte 45 % (19-41); Metamyelocyte 3 % (0-1); Monocyte 13 % (0-10); Myelocyte 1 (0-0); Neutrophil-Segmented 34 % (47-70); Total Cells Counted 100 (MANUAL DIFF)
[2019-12-12 09:07] LABS: Absolute Neutrophil Count 2.9 X10^3/uL (2.0-7.7)
[2019-12-12 09:09] LABS: Platelet Estimate ADEQUATE (ADEQ); Red Cell Morphology NORM C+C NORMAL (NORM C&C)
[2019-12-12 09:11] VITALS: BP 126/68; PULSE 63; RESP 16; TEMP 37.1; O2SAT 95
[2019-12-12] MEDS: Divalproex (ER) 500 MG Tablet PO (09:15)
[2019-12-12] MEDS: ZONISAMIDE 100 MG CAPSULE PO (09:16)
[2019-12-12] MEDS: Heparin Injection (Vial) 5,000 UNIT/ML VIAL 5000 UNIT SC (09:16)
[2019-12-12] MEDS: lamoTRIgine 100 MG Tablet 50 MG PO (09:16)
[2019-12-12] MEDS: Amox/Clavulanate 875 MG Tablet PO (09:16)
[2019-12-12] MEDS: Famotidine 200 MG/20 ML MDV 20 MG in 0.9% Normal Saline (Pres. free 8 ML 300 MG IV (09:20)
[2019-12-12] MEDS: 0.9% Saline Lock 10 ML Syringe IV (09:20)
[2019-12-12 10:46] LABS: Reactive Lymphocyte RARE
--- NOTE | 2019-12-12 12:08 | PN_ITS ---
Patient Problems: Active and Suspected Problems Sepsis (Acute) Acute kidney injury (Acute) Acute cholecystitis (Acute) Reason for Visit: Follow-up on acute cholecystitis. Subjective: No acute events overnight. Minimal drainage in bulb. Objective: Physical exam: General: Alert, Cooperative, No apparent distress, - HEENT: Atraumatic, PERRLA, EOMI, Normocephalic Oral: Dry Mucosa Neck: Supple, No JVD, Negative Carotid Bruits Lungs: Clear to auscultation, Normal air movement Cardiovascular: Regular rate, No murmurs Abdomen: Bowel Sounds Present, Soft, Non Tender, Non-Distended Extremities: No clubbing, No cyanosis, No edema, Capillary Refill Less than 3 Seconds Skin: No rashes, No breakdown Musculoskeletal: No Tenderness to Palpation of Joints or Extremities Neurological: Cranial nerves II-XII grossly intact, Neuro grossly intact Psych/Mental Status: Normal Affect, Appropriate Vitals/I&O's: Vital Signs Temp Pulse Resp BP Pulse Ox 98.7 F 63 16 126/68 H 95 12/12/19 09:11 12/12/19 09:11 12/12/19 09:11 12/12/19 09:11 12/12/19 09:11 Oxygen Flow Rate (L/min) [4] 3 Oxygen Flow Rate (L/min) 3 Oxygen Delivery Method [4] Nasal Cannula Oxygen Delivery Method [3] Room Air Oxygen Delivery Method [2] Room Air Oxygen Delivery Method [1 ( Room Air Initial Baseline)] Oxygen Delivery Method Room Air Weight: 85.4 kg Body Mass Index (BMI) 25.5 Intake and Output for Last 24 Hours 12/10/19 12/11/19 12/12/19 23:59 23:59 23:59 Intake Total 3747.54 / 3747.54 2303.04 / 2303.04 205 / 205 Output Total 356 / 356 1625 / 1625 600 / 600 Balance 3391.54 / 3391.54 678.04 / 678.04 -395 / -395 Microbiology Past 72 Hours 12/09/19 Unknown Fluid - Other Gram Stain - Final 12/09/19 Unknown Fluid - Other Body Fluid Culture - Preliminary No growth-Final to follow 12/09/19 Unknown Fluid - Other Anaerobic Culture - Preliminary No growth in 48 hours. 12/08/19 16:05 Blood Culture (Wb) - Left Hand Blood Culture - Preliminary No growth in 48 hours. 12/08/19 15:48 Blood Culture (Wb) - Anticubital Right Blood Culture - Preliminary No growth in 48 hours. 12/08/19 17:05 Urine, Catheterized Urine Culture - Final Culture exhibits no growth. Laboratory Results 12/12/19 08:12: WBC 8.7, RBC 3.31 L, Hgb 10.8 L, Hct 33.0 L, MCV 99.7 H, MCH 32.6 H, MCHC 32.7, RDW Std Deviation 50.8 H, RDW Coeff of Stephany 13.9, Plt Count 223, MPV 10.8, Neut % (Auto) Not Reportable, Absolute Neuts (auto) 2.9, Absolute Lymphs (auto) 3.90, Total Counted 100, Neutrophils % (Manual) 34 L, Lymphocytes % (Manual) 45 H, Monocytes % (Manual) 13 H, Eosinophils % (Manual) 4, Metamyelocytes % 3 H, Myelocytes % 1 H, Diff Path Review May foll, Reactive Lymphocytes RARE, Platelet Estimate ADEQUATE, RBC Morphology NORM C+C 12/12/19 08:12: Sodium 144, Potassium 4.0, Chloride 116 H, Carbon Dioxide 24.0, Anion Gap 4 L, BUN 14, Creatinine 0.78, Estim Creat Clear Calc 106.40, Est GFR (MDRD) Af Amer 130, Est GFR (MDRD) Non-Af 107, BUN/Creatinine Ratio 18.0, Glucose 88, Calcium 8.7, Total Bilirubin 0.30, AST 46 H, ALT 33, Alkaline Phosphatase 90, Total Protein 5.8 L, Albumin 1.9 L, Globulin 3.9, Albumin/Glob ulin Ratio 0.5 L Current Medications Acetaminophen (Tylenol) 650 mg PO Q6H PRN PRN PRN Reason: Pain Score 1-10/Temp > 100.7 F Amoxicillin/Clavulanate Potassium (Augmentin Tablet) 875 mg PO BID [facility] Last Admin: 12/12/19 09:16 Dose: 875 mg Documented by: Divalproex Sodium (Depakote) 500 mg PO DAILY@1700 [facility] Last Admin: 12/11/19 17:03 Dose: 500 mg Documented by: Divalproex Sodium (Depakote Er) 500 mg PO DAILY@0800 [facility] Last Admin: 12/12/19 09:15 Dose: 500 mg Documented by: Heparin Sodium (Porcine) (Heparin Na) 5,000 unit SC Q12 [facility] Last Admin: 12/12/19 09:16 Dose: 5,000 unit Documented by: Famotidine 20 mg/ Sodium (Chloride) 10 mls @ 300 mls/hr IV Q12 [facility] Last Infusion: 12/12/19 09:22 Dose: Infused Documented by: Sodium Chloride () 250 mls @ 15 mls/hr IV .[id number] PRN PRN Reason: Saline Flush Last Infusion: 12/11/19 13:02 Dose: Infused Documented by: Sodium Chloride () 250 mls @ 15 mls/hr IV .[id number] PRN PRN Reason: Additional IVPB Infusion Lamotrigine (Lamictal) 50 mg PO BID [facility] Last Admin: 12/12/19 09:16 Dose: 50 mg Documented by: Morphine Sulfate () 2 mg IV Q3H PRN PRN PRN Reason: Pain Score 6-10/10 Nutritional Formula (Lactose Free) (Ensure Enlive) 120 ml PO 4X/DAY [facility] Ondansetron HCl (Zofran) 4 mg IV Q8H PRN PRN PRN Reason: NAUSEA/VOMITING Sodium Chloride () 10 - 40 ml IV UD PRN PRN Reason: SALINE FLUSH Last Admin: 12/12/19 09:20 Dose: 20 ml Documented by: Tamsulosin HCl (Flomax) 0.4 mg PO QHS [facility] Last Admin: 12/11/19 21:06 Dose: 0.4 mg Documented by: Zonisamide (Zonisamide) 100 mg PO BID@08,1999 [facility] Last Admin: 12/12/19 09:16 Dose: 100 mg Documented by: STROKE Vital Signs/Narrative: Vital Signs Temp Pulse Resp BP Pulse Ox 12/12/19 09:11 98.7 F 63 16 126/68 H 95 Medical Necessity - Tobacco Use Smoking Status: Never smoker Assessment/Plan All Active Problems Sepsis (Acute) Acute kidney injury (Acute) Acute cholecystitis (Acute) 1. Acute cholecystitis, status post cholecystectomy tube(POD #3), bilious fluid in bulb Blood cultures are negative x48 hours, Gram stain from biliary fluid shows no growth to date Switched from IV Zosyn to po Augmentin in a.m. for a total of 7-10 days. General surgery following; laparoscopic cholecystectomy planned in 6 weeks. 2. Acute kidney injury, resolved, patient is having adequate oral input with good urine output Will repeat blood work in a.m. 3. Hypokalemia, resolved with replacement 4. Seizure disorder, stable, no seizures seen in this admission, continue on Depakote 5. Debility, patient with MRDD, complicates discharge planning, Discharge planning in the works 6. DVT prophylaxis with heparin subcu Inpatient E&M: 70984 Subs Hosp L2
--- NOTE | 2019-12-12 12:56 | PCM.DC.SUM ---
Discharge Date and Diagnosis - Problem List Patient Problems: Active and Suspected Problems Acute kidney injury (Acute) Acute cholecystitis (Acute) Date of Admission: 12/08/19 Date of Discharge: 12/12/19 - Primary Discharge Diagnosis Acute Problems: Active Problems Acute cholecystitis Acute kidney injury Hypokalemia Lactic acidosis, unclear etiology, present on admission - Secondary Discharge Diagnosis Chronic Problems: Chronic Problems MRDD (Chronic) Mental retardation (Chronic) Seizure disorder (Chronic) Hospital Course and Treatment Imaging Results: Clinical Impression(s) from Imaging Studies Abdomen/Pelvis CT 12/08/19 15:45 IMPRESSION: 1. Acute cholecystitis Electronically Signed: Billy Hodgson MD at 17:15 EDT , Service support , ADDENDUM: 12/08/19 1743 IMPRESSION: 1. Acute cholecystitis N.B. : The above information has been verbally conveyed by Billy Hodgson MD to Pepe Pollard MD, MD, on 12/08/2019 17:36:09 (ET). Electronically Signed: Billy Hodgson MD at 17:15 EDT , Service support , Chest X-Ray 12/08/19 16:15 IMPRESSION: No acute pulmonary process Electronically Signed: Dez Rawls MD at 16:58 EDT , Service support , Gallbladder Ultrasound 12/08/19 18:05 IMPRESSION: Acute cholecystitis with multiple tiny stones intermixed with a moderate amount of sludge and abnormally thickened gallbladder wall Electronically Signed: Billy Hodgson MD at 19:45 EDT , Service support , Limited or Localized CT 12/09/19 11:21 IMPRESSION: Cholecystostomy tube in good position. Electronically Signed: Andree Rincon at 15:07 EDT Tel , Service support , Intraoperative Ultrasound 12/09/19 14:19 IMPRESSION: Successful cholecystostomy tube placement under ultrasound guidance. Electronically Signed: Andree Rincon, at 14:38 EDT Tel , Service support , General surgery - Dr. Billy Glynn Operations: None Procedures: - - s/p cholecystostomy tube on 12/08/19 Summary of Care Provided: The patient is a 64 year old M with MRDD, resident in a correction who presented with abdominal pain, nausea, vomiting and dark urine. Patient had complained of intermittent abdominal pain for about 1 week. Over the last 3 days prior to admission, he had nausea and vomiting and was not eating or drinking. His urine was noted to be dark. In the emergency department, patient's work-up was suggestive of acute cholecystitis from CT of the abdomen and pelvis. He was also found to have acute kidney injury secondary to poor p.o. intake and acute cholecystitis. General surgery was consulted. He received IV fluids with resolution of his acute kidney injury. Also presented with lactic acid of 3.3, this resolved with fluids. Unclear etiology for lactic acid. In the course of the hospital stay, patient continued to be stable. General surgery discussed laparoscopic cholecystectomy with patient's legal guardian who was reluctant to have that done. A cholecystostomy tube was placed by radiology with good success. Patient will be followed by general surgery?Dr. Glynn in the outpatient in 10 to 14 days. Patient was maintained on IV Flagyl and transition to oral Augmentin for a total of 10 days. He would need a laparoscopic cholecystectomy in 6 weeks. Patient Problems: Active and Suspected Problems Acute kidney injury (Acute) Acute cholecystitis (Acute) Subjective: see progress note of the day Objective: see progress note of the day - Physical Exam Vitals/I&O's: Vital Signs Temp Pulse Resp BP Pulse Ox 98.7 F 63 16 126/68 H 95 12/12/19 09:11 12/12/19 09:11 12/12/19 09:11 12/12/19 09:11 12/12/19 09:11 Oxygen Flow Rate (L/min) [4] 3 Oxygen Flow Rate (L/min) 3 Oxygen Delivery Method [4] Nasal Cannula Oxygen Delivery Method [3] Room Air Oxygen Delivery Method [2] Room Air Oxygen Delivery Method [1 ( Room Air Initial Baseline)] Oxygen Delivery Method Room Air Weight: 85.4 kg Body Mass Index (BMI) 25.5 Intake and Output for Last 24 Hours 12/10/19 12/11/19 12/12/19 23:59 23:59 23:59 Intake Total 3747.54 / 3747.54 2303.04 / 2303.04 205 / 205 Output Total 356 / 356 1625 / 1625 600 / 600 Balance 3391.54 / 3391.54 678.04 / 678.04 -395 / -395 Microbiology Past 72 Hours 12/09/19 Unknown Fluid - Other Gram Stain - Final 12/09/19 Unknown Fluid - Other Body Fluid Culture - Preliminary No growth-Final to follow 12/09/19 Unknown Fluid - Other Anaerobic Culture - Preliminary No growth in 48 hours. 12/08/19 16:05 Blood Culture (Wb) - Left Hand Blood Culture - Preliminary No growth in 48 hours. 12/08/19 15:48 Blood Culture (Wb) - Anticubital Right Blood Culture - Preliminary No growth in 48 hours. 12/08/19 17:05 Urine, Catheterized Urine Culture - Final Culture exhibits no growth. Laboratory Results 12/12/19 08:12: WBC 8.7, RBC 3.31 L, Hgb 10.8 L, Hct 33.0 L, MCV 99.7 H, MCH 32.6 H, MCHC 32.7, RDW Std Deviation 50.8 H, RDW Coeff of Stephany 13.9, Plt Count 223, MPV 10.8, Neut % (Auto) Not Reportable, Absolute Neuts (auto) 2.9, Absolute Lymphs (auto) 3.90, Total Counted 100, Neutrophils % (Manual) 34 L, Lymphocytes % (Manual) 45 H, Monocytes % (Manual) 13 H, Eosinophils % (Manual) 4, Metamyelocytes % 3 H, Myelocytes % 1 H, Diff Path Review May foll, Reactive Lymphocytes RARE, Platelet Estimate ADEQUATE, RBC Morphology NORM C+C 12/12/19 08:12: Sodium 144, Potassium 4.0, Chloride 116 H, Carbon Dioxide 24.0, Anion Gap 4 L, BUN 14, Creatinine 0.78, Estim Creat Clear Calc 106.40, Est GFR (MDRD) Af Amer 130, Est GFR (MDRD) Non-Af 107, BUN/Creatinine Ratio 18.0, Glucose 88, Calcium 8.7, Total Bilirubin 0.30, AST 46 H, ALT 33, Alkaline Phosphatase 90, Total Protein 5.8 L, Albumin 1.9 L, Globulin 3.9, Albumin/Globulin Ratio 0.5 L Current Medications Acetaminophen (Tylenol) 650 mg PO Q6H PRN PRN PRN Reason: Pain Score 1-10/Temp > 100.7 F Amoxicillin/Clavulanate Potassium (Augmentin Tablet) 875 mg PO BID [facility] Last Admin: 12/12/19 09:16 Dose: 875 mg Documented by: Divalproex Sodium (Depakote) 500 mg PO DAILY@1700 [facility] Last Admin: 12/11/19 17:03 Dose: 500 mg Documented by: Divalproex Sodium (Depakote Er) 500 mg PO DAILY@0800 [facility] Last Admin: 12/12/19 09:15 Dose: 500 mg Documented by: Heparin Sodium (Porcine) (Heparin Na) 5,000 unit SC Q12 [facility] Last Admin: 12/12/19 09:16 Dose: 5,000 unit Documented by: Famotidine 20 mg/ Sodium (Chloride) 10 mls @ 300 mls/hr IV Q12 [facility] Last Infusion: 12/12/19 09:22 Dose: Infused Documented by: Sodium Chloride () 250 mls @ 15 mls/hr IV .[id number] PRN PRN Reason: Saline Flush Last Infusion: 12/11/19 13:02 Dose: Infused Documented by: Sodium Chloride () 250 mls @ 15 mls/hr IV .[id number] PRN PRN Reason: Additional IVPB Infusion Lamotrigine (Lamictal) 50 mg PO BID [facility] Last Admin: 12/12/19 09:16 Dose: 50 mg Documented by: Morphine Sulfate () 2 mg IV Q3H PRN PRN PRN Reason: Pain Score 6-10/10 Nutritional Formula (Lactose Free) (Ensure Enlive) 120 ml PO 4X/DAY [facility] Ondansetron HCl (Zofran) 4 mg IV Q8H PRN PRN PRN Reason: NAUSEA/VOMITING Sodium Chloride () 10 - 40 ml IV UD PRN PRN Reason: SALINE FLUSH Last Admin: 12/12/19 09:20 Dose: 20 ml Documented by: Tamsulosin HCl (Flomax) 0.4 mg PO QHS [facility] Last Admin: 12/11/19 21:06 Dose: 0.4 mg Documented by: Zonisamide (Zonisamide) 100 mg PO BID@799,1999 [facility] Last Admin: 12/12/19 09:16 Dose: 100 mg Documented by: Discharge Diet: No Restrictions Discharge Activity: Return to Normal Activity Home Medications: Medications to take at Discharge Calcium (Elemental) [Os-Rick 500] 500 mg PO DAILY@0800,1700 10/17/13 Docusate Sodium [Dok] 100 mg PO DAILY PRN PRN 10/13/19 Lamotrigine [Lamictal Xr] 100 mg PO DAILY@0810/16/19 Zonisamide 100 mg PO BID@0800,199910/16/19 Divalproex Sodium 500 mg PO DAILY@17012/08/19 Divalproex Sodium [Divalproex Sodium ER] 500 mg PO DAILY@0812/08/19 Multivitamin/Iron/Folic Acid [Certavite-Antioxidant Tablet] 1 tab PO DAILY@0812/08/19 Pyridoxine HCl (Vitamin B6) [Vitamin B-6] 100 mg PO DAILY@0812/08/19 Sennosides [Senna Laxative] 8.6 mg PO DAILY@0800,199912/08/19 Tamsulosin HCl [Flomax] 0.4 mg PO QHS 12/08/19 Acetaminophen [Tylenol Tablet] 650 mg PO Q6H PRN PRN tab 12/12/19 Amox/Clavulanate Tablet [Augmentin Tablet] 875 mg PO BID 5 Days #11 tab 12/12/19 Ensure Enlive 120 ml PO 4X/DAY liquid 12/12/19 Polyethylene Glycol 3350 [Gavilax] 17 gm PO DAILY@0800 #0 12/12/19 Following Prescriptions Were Given to Patient: Amox/Clavulanate Tablet [Augmentin Tablet] 875 mg PO BID 5 Days #11 tab Primary Care Physician: Jesus Noble MD [Primary Care Provider] - Please follow up with your Primary Care Physician in: within 2 weeks of discharge from [facility] Please Follow Up With: Cleveland Oconnor PA Please Follow Up With: Billy Glynn MD When: in 10-14 days Disposition: Residential facility Minutes spent on discharge:: 45 Patient Condition:: Stable Medical Necessity - Tobacco Use Smoking Status: Never smoker Tobacco Use: Non-smoker Meaningful Use Info Meaningful Use Diagnoses (Choose all that apply): None applicable Inpatient E&M: 56050 Disch Hosp
[2019-12-12 13:16] LABS: Pathologist Review Reviewed
[2019-12-12 13:35] VITALS: BP 126/53; PULSE 67; RESP 18; TEMP 37.3; O2SAT 94
[2019-12-12 13:39] VITALS: BP 126/53; PULSE 67; RESP 18; TEMP 37.3; O2SAT 94
--- NOTE | 2019-12-12 14:33 | NURSING ---
Report called to nurse Merino for pt transfer to [facility].
--- NOTE | 2019-12-12 15:08 | CASEMGMT ---
Social Work Level of Care obtained. Pt ready for discharge. [facility] for 5:00 cot pickup. Phone call to Keila at [facility], Le at [facility] and Lucila antonio at [facility] and all notified of discharge. Orders faxed to [facility] and nursing notified. EZE Brock
== END 2019-12-12 17:14 | disposition skilled nursing facility (03) ==
LOC: ED 17:48 → PCU 19:14
PROVIDERS: Nurse Practitioner Family; Surgery; Admitting Provider Hospitalist; Emergency Provider Emergency Medicine; PCP Family Medicine; Visit Provider Internal Medicine
DX: K81.0 Acute cholecystitis (principal); N17.9 Acute kidney failure, unspecified; E87.2 Acidosis; E87.6 Hypokalemia; E86.0 Dehydration; I10 Essential (primary) hypertension; N40.0 Benign prostatic hyperplasia without lower urinary tract symptoms; M40.209 Unspecified kyphosis, site unspecified; G40.909 Epilepsy, unspecified, not intractable, without status epilepticus; F79 Unspecified intellectual disabilities; Z79.899 Other long term (current) drug therapy
CPT/HCPCS: 36415; 51702; 71045; 74176; 76380; 76705; 76998; 80048; 80053; 81001; 83605; 83690; 85025; 85027; 85610; 85730; 87040; 87070; 87075; 87086; 87205; 87635; 93005; 94799; 97110; 97163; 97166; 97530; 97535; 97802; 99155; 99156; 99285; J7030; J7040; J7050; A4216; J2405; J3490; U0003

== ENCOUNTER 2020-01-19 10:27 | Observation (INO) | payer MEDICAID, SELFPAY ==
[2019-12-19 14:22] VITALS: BMI 25.5
[2020-01-19] VITALS (14 sets, daily range): BP systolic 85–124; BP diastolic 52–92; PULSE 69–86; RESP 16–18; TEMP 36–36.7; O2SAT 91–97; BMI 25.0
--- NOTE | 2020-01-19 07:19 | PCM.HP.BLA ---
Problem List (1) Acute cholecystitis Status: Acute History and Physical Date of Admission: 01/19/20 Intake Visit Reasons: 10 DAY F/U GALLBLADDER TUBE Chief Complaint: post jose m tube Custom Dressmaker Required: No Is patient in pain?: No Allergies camphor [From Vicks Vaporub] Allergy (Verified 12/19/19 13:44) Other clobazam [From Onfi] Allergy (Verified 12/19/19 13:44) Other eucalyptus [From Vicks Vaporub] Allergy (Verified 12/19/19 13:44) Other eucalyptus oil [From Vicks Vaporub] Allergy (Verified 12/19/19 13:44) Other levetiracetam [From Keppra] Allergy (Verified 12/19/19 13:44) Other menthol [From Vicks Vaporub] Allergy (Verified 12/19/19 13:44) Other petrolatum,white [From Vicks Vaporub] Allergy (Verified 12/19/19 13:44) Other turpentine oil [From Vicks Vaporub] Allergy (Verified 12/19/19 13:44) Other Medications Calcium (Elemental) [Os-Rick 500] 500 mg PO DAILY@0800,1700 10/17/13 [History Confirmed 12/19/19] Docusate Sodium [Dok] 100 mg PO DAILY PRN PRN 10/13/19 [History Confirmed 12/19/19] Lamotrigine [Lamictal Xr] 100 mg PO DAILY@0800 10/16/19 [History Confirmed 12/19/19] Zonisamide 100 mg PO BID@0800,199910/16/19 [History Confirmed 12/19/19] Divalproex Sodium 500 mg PO DAILY@1700 12/08/19 [History Confirmed 12/19/19] Divalproex Sodium [Divalproex Sodium ER] 500 mg PO DAILY@0800 12/08/19 [History Confirmed 12/19/19] Multivitamin/Iron/Folic Acid [Certavite-Antioxidant Tablet] 1 tab PO DAILY@0800 12/08/19 [History Confirmed 12/19/19] Pyridoxine HCl (Vitamin B6) [Vitamin B-6] 100 mg PO DAILY@0800 12/08/19 [History Confirmed 12/19/19] Sennosides [Senna Laxative] 8.6 mg PO DAILY@0800,199912/08/19 [History Confirmed 12/19/19] Tamsulosin HCl [Flomax] 0.4 mg PO QHS 12/08/19 [History Confirmed 12/19/19] Acetaminophen [Tylenol Tablet] 650 mg PO Q6H PRN PRN tab 12/12/19 [Rx Confirmed 12/19/19] Ensure Enlive 120 ml PO 4X/DAY liquid 12/12/19 [Rx Confirmed 12/19/19] Polyethylene Glycol 3350 [Gavilax] 17 gm PO DAILY@0800 #0 12/12/19 [Rx Confirmed 12/19/19] PFSH Social History (Updated 12/19/19 @ 14:[address] Billy Glynn MD) Smoking Status: Never smoker HPI HPI HPI: JESUS SHAVER, is a 64 M who presents to the office today for ongoing surgical consultation regarding acute cholecystitis for which he was hospitalized from December 07 through December 12, 2019 at the [facility]. Unfortunately he presented with lactic acidosis and acute kidney injury and hypokalemia. He had been ill for 1 week. To help manage this after discussion with his legal guardian a cholecystostomy tube was placed. With medical management and IV hydration and antibiotics he improved nicely. He has been discharged to a senior living facility. He is making good progress. Fortunately there is been no evidence that he is been aggravating the cholecystostomy tube. The drainage has diminished significantly. He is accompanied by an aide today. Verbal report is that the patient is making progress and is back to his baseline behavior. There is been no record of him having fever. He was discharged on a liquid diet. A request has been made to advance this. HPI HPI HPI: JESUS SHAVER, is a 64 M who presents to the office today for Exam Const General: comfortable, no acute distress Nutritional Appearance: average body habitus Orientation: awake HENNY Head: other (Protective headgear in place) Resp Effort & Inspection: normal respiratory effort Auscultation: clear to auscultation bilaterally Cardio Rate: regular rate Rhythm: regular rhythm GI Other: Soft, cholecystostomy tube exiting right upper quadrant, no erythema, small amount of bilious drainage within the tube Neuro Other: Patient is calm and not showing signs of any agitation Extrem Other: Moderate bilateral lower extremity swelling Assessment & Plan Problems 1. Acute cholecystitis K81.0 Plan 64-year-old gentleman with developmental disability. An episode of suspected acalculous acute cholecystitis with severe dehydration and acute kidney injury was successfully managed with a cholecystostomy tube. His diet is being advanced. Unfortunately it was not recognized the severity of his illness due to his inability to efficiently communicate. With that in mind I do believe that it is reasonable to offer him a laparoscopic cholecystectomy with selective cholangiography. It would be ideal if the degree of his inflammation present was allowed to further resolve. I had initially set a goal of approximately 6 weeks. I have elected to leave the cholecystostomy tube in place today. I will seek food counselor from his legal guardian. We will then consider scheduling a laparoscopic cholecystectomy and selective cholangiography. It is likely that the tube will remain in place until the time of surgery unless it becomes irritating to the patient. I appreciate the ongoing opportunity of assisting with his surgical care Copy: Dr. Jesus Glynn M.D., F.A.C.S. I have re-examined the patient. There are no clinical changes since date of exam. The patient has remained in the senior living in stable condition. There is been no reported fever or abdominal pain. His cholecystostomy tube has been in place draining minimal amounts of green bile. Billy Glynn M.D., F.A.C.S. Procedure Criteria Procedure Type: Elective COVID Risk Discussion: The surgeon/proceduralist and patient have discussed in detail the risk of exposure to and/or potential harm posed by the COVID-19 virus with having a surgery/procedure at this time versus the risk of delaying the surgery/procedure. It is not possible to know either the risk of delaying the surgery or procedure or chance of getting an infection with perfect accuracy, but a joint decision was made between the patient and the surgeon/proceduralist to proceed at this time with the scheduled surgery/procedure as indicated on the consent form.
--- NOTE | 2020-01-19 07:26 | PCM.DC.GS ---
Discharge Diet: Light diet - advance as tolerated - if you have questions about your diet instructions, please talk to you doctor. Discharge Activity: May Not Drive - for 1 week or while taking narcotic pain medicine. May shower in (days): 5 - May shower 24 hours after GISEL removed if the dressing remains dry Lifting Restrictions: 10 pounds Call your doctor if your incision/area has: Continuous Slow Oozing, Sudden Increased Bleeding, Increased Pain/ Swelling, Increased Redness, Foul Smelling Discharge Call your doctor if you observe: Fever of 101 or Higher Suture Line Care: Avoid Pulling/Pushing, Avoid Pinching/Bending Additional Dressing/Incision Instructions:: Please change the GISEL dressing daily, may cleanse the site with a Q-tip and peroxide, apply dry gauze dressing and securely tape secured so that is completely occlusive and that the tape is holding the tubing as well. Do not use a split dressing with no securement to the tube. The dressing may be changed daily or as often as needed to keep the site clean and dry. Empty, measure, record GISEL output. Notify MD if the appearance of the GISEL output turns to green Allergies/Adverse Reactions: Allergies camphor [From Vicks Vaporub] Allergy (Verified 12/19/19 13:44) Other clobazam [From Onfi] Allergy (Verified 12/19/19 13:44) Other eucalyptus [From Vicks Vaporub] Allergy (Verified 12/19/19 13:44) Other eucalyptus oil [From Vicks Vaporub] Allergy (Verified 12/19/19 13:44) Other levetiracetam [From Keppra] Allergy (Verified 12/19/19 13:44) Other menthol [From Vicks Vaporub] Allergy (Verified 12/19/19 13:44) Other petrolatum,white [From Vicks Vaporub] Allergy (Verified 12/19/19 13:44) Other turpentine oil [From Vicks Vaporub] Allergy (Verified 12/19/19 13:44) Other Medications to take at Discharge Docusate Sodium [Dok] 100 mg PO DAILY PRN PRN 10/13/19 Lamotrigine [Lamictal Xr] 100 mg PO DAILY@0800 10/16/19 Zonisamide 100 mg PO BID@0800,199910/16/19 Divalproex Sodium 500 mg PO DAILY@1700 12/08/19 Multivitamin/Iron/Folic Acid [Certavite-Antioxidant Tablet] 1 tab PO DAILY@0800 12/08/19 Pyridoxine HCl (Vitamin B6) [Vitamin B-6] 100 mg PO DAILY@0800 12/08/19 Sennosides [Senna Laxative] 8.6 mg PO DAILY@0800,2000 12/08/19 Tamsulosin HCl [Flomax] 0.4 mg PO QHS 12/08/19 Polyethylene Glycol 3350 [Gavilax] 17 gm PO DAILY@0800 #0 12/12/19 Calcium Carbonate/Vitamin D3 [Oyster Shell 500-Vit D3 200 Tb] 1 ea PO BID 01/05/20 Divalproex Sodium 500 mg PO DAILY 01/19/20 Hydrocodone Bitart/Apap 5-325 [Montreal 5MG-325MG] 1 tab PO Q6H PRN PRN 2 Days #6 tab 01/19/20 The following prescriptions were given: Hydrocodone Bitart/Apap 5-325 [Montreal 5MG-325MG] 1 tab PO Q6H PRN PRN 2 Days #6 tab PRN Reason: Pain Transmission Status: Received by [facility] Primary Care Physician: Brennan Glynn III, MD [Primary Care Provider] - Test Results: Test results from this visit will be discussed in further detail at your follow-up appointment, if applicable. Please Follow Up With: Billy Glynn MD - [phone] When: Office appointment Sunday for GISEL removal
[2020-01-19] MEDS: Lactated Ringers 1,000 ML 100 ML IV ×3 (07:45→13:33)
--- NOTE | 2020-01-19 08:58 | RAD_ITS ---
STUDY: INTRAOPERATIVE CHOLANGIOGRAM. REASON FOR EXAM: Male, 64 years old. Laparoscopic, cholecystectomy with IOC. Acute cholecystitis. FLUOROSCOPY TIME (if supplied): ( 26.6 seconds ) minutes/seconds. A cine loop of 48 images were submitted. TECHNIQUE: An intraoperative cholangiogram was performed by the surgeon. Imaging was submitted. COMPARISON: None. FINDINGS: Unsuccessful cholangiogram. RAD/Cholangiogram/ O R,Initial IMPRESSION: Unsuccessful cholangiogram. Electronically Signed: Nilson Verma, at 12:43 EDT , Service support ,
[2020-01-19] MEDS: Cefazolin 2 GM in 0.9% Normal Saline 100 ML IV (09:05)
--- NOTE | 2020-01-19 09:05 | GALL_PTH ---
PATIENT: MAXIMO SHAVER LOC: MS3 U#:[id number] AGE/SX: 64/M ROOM: OR306 RE01/19/[address]: Dr. Billy Glynn MD : [id number] BED: 1 DIS: 01/20/2020 SPEC #: [id number] RECD: 01/19/20 10:59 STATUS: YUNIEL RE #: [id number] MEL: 01/19/20 09:[address]: Billy Glynn DEPT: SURGICAL PATHOLOGY RECD BY: Ciro Marcus ENTERED: 01/19/20 13:41 SP TYPE: GALLBLADDE YOLANDE DR: Dr. Brennan Glynn III, MD Tissues: A - Gallbladder, NOS B - Liver, NOS Procedures: PAS with Diastase (control) Trichrome (control) Special Stain Group II PAS Stain (control) Surgery Specimen Level III Surgery Specimen Level V Retic (control) Iron Stain (control) HEADER OPERATION: Laparoscopic cholecystectomy with IOC PRE-OP DIAGNOSIS: Acute cholecystitis TISSUE SUBMITTED: A - Gallbladder, B - Zack-Cut right lobe liver biopsy MICROSCOPIC DIAGNOSIS A. Gallbladder, cholecystectomy: Mucosal denudation with acute and chronic cholecystitis and fibrinopurulent material. B. Liver, Zack-Cut core biopsy: Chronic hepatitis, grade 2 stage 3 (modified Knodell scoring system). Mildly increased intraparenchymal iron deposition. See comment. AM:lizy 01/20/20 COMMENT B. Trichrome stain with matched control reveals broad band periportal septal fibrosis with evidence of cirrhosis. Reticulin stain with matched control reveals a normal architectural pattern. Iron stain is mildly increased in the parenchyma/hepatocytes. PAS and PASD stains does not reveal accumulation of abnormal proteins. Clinical correlation is suggested. MICROSCOPIC DESCRIPTION Slides are reviewed. GROSS DESCRIPTION A - Received is one container labeled with the patient's name and designated gallbladder. The specimen consists of a gallbladder measuring 6 x 2.5 x 2.5 cm. The external surface is smooth and glistening. Focally, it is granular, hemorrhagic and contains cautery artifact. The lumen of the gallbladder contains a small amount of greenish-yellow bile. No calculi are identified. No mass lesions are identified. The gallbladder wall averages 0.4 cm in thickness. Clinical Statistics Manager sections of the gallbladder and the cystic duct at margin of resection are submitted in one cassette. B - Received in fixative is one container labeled with the patient's name and designated Zack-Cut right lobe liver biopsy. The specimen consists of a single core of light goodwin tissue measuring 1.5 cm in length and 0.1 cm in diameter. The specimen is submitted in its entirety in one cassette. / AM:lizy 01/19/20 TC:2 CPT: 67693, 92496, 90770 x5
[2020-01-19] MEDS: Bupivacaine Mpf 0.5% 30 ML VIAL (10:15)
--- NOTE | 2020-01-19 10:34 | PCM.OPRPT ---
Problem List (1) Cholelithiasis with chronic cholecystitis Status: Chronic Qualifiers: Cholelithiasis location: gallbladder Biliary obstruction: without biliary obstruction Qualified Code(s): K80.10 - Calculus of gallbladder with chronic cholecystitis without obstruction Report of Operation Date of Procedure: 01/19/20 Pre-Operative Diagnosis: Chronic cholecystitis cholelithiasis Post-Operative Diagnosis: Severe chronic cholecystitis cholelithiasis, abnormal liver texture Surgery/Procedure Performed:: Laparoscopic cholecystectomy with cholangiograms. Zack-Cut needle core right lobe liver biopsy Description of Surgical Findings:: Timeout and informed consent was obtained. 64-year-old gentleman was taken to the operating place upon the table underwent general endotracheal intubation anesthesia. Ancef 2 g were given intravenously preoperatively. The previously placed percutaneous pigtail catheter Kolek cystostomy tube was transected and easily removed. The abdomen was sterilely prepped and draped. 0.5% Marcaine was used as a local anesthetic. Throughout the procedure total 30 cc was used. Skin sites were pre-anesthetized. A vertical infraumbilical incision was created holding sutures of 0 Vicryl placed varies needle inserted saline drop test performed. The abdomen was insufflated with CO2 to a pressure of 10 mmHg pressure. 10 mm trocar was inserted. 10 mm laparoscope was inserted. No evidence of any trocar injuries. There was some cecal dilatation. There was significant adhesions of omentum to the liver and the liver was adherent to the anterior abdominal wall of the adhesions. 5 mm trochars were placed in the epigastric mid abdomen and right upper quadrant. The liver peritoneal adhesions were sharply transected. The omental gallbladder adhesions were sharply and bluntly transected. Where needed hemostasis was obtained with hemo-lock clips and electrocautery. Then the infundibular area the gallbladder was addressed. This was done with aqua dissection and blunt dissection. The vessels could not be completely dissected free. This area was quite indurated. I elected to perform a dome down approach. The gallbladder was carefully and tediously dissected free from the liver using electrocautery and blunt dissection. A liver retractor was placed. The gallbladder was then completely dissected free. Still with more effort I was not assured of a separate view of the cystic artery and cystic duct. I then inserted a cholangiogram catheter into the gallbladder and fluoroscopically control cholangiograms were obtained. This only demonstrated filling of the gallbladder. Could not get any flow into the common bile duct. The patient's previous cholecystostomy tube however was draining bile so that I know that there is a communication. That in mind I inspected the gallbladder right where it was necrotic and when I felt there was a visible stone. I placed a 0 PDS Endoloop and secured right below that area and then I placed a second 1. I carefully inspected this I felt that I was on the lower third of the gallbladder infundibular area. I transected between the 2 PDS carefully inspected this area felt again it was consistent with inflamed gallbladder. Gallbladder was placed in retrieval bag. The liver appeared to have somewhat of abnormal slightly granular textured slightly bashir appearance. This was quite mild in etiology but because of the patient's mental deficiencies I elected to perform a needle core right lobe liver biopsy. This was done through the cholangiogram Angiocath site single core was obtained. That was immediately placed in formalin. At area was treated with electrocautery successfully. The right upper quadrant was irrigated and aspirated free of excess fluid. The Endoloop appeared to be in very good position. I placed a 15 round GISEL drain to the subhepatic space. Irrigated and aspirated above the liver. All hemostasis was intact. All clips in his Endoloops appear to be in excellent position. The abdomen was allowed to deflate through an antiviral valve. The gallbladder was removed at the umbilicus slight enlargement of the fascial incision was required. The remaining trochars were removed. The fascia at the umbilicus approximated with 2-0 Vicryl [id number] sutures. Skin edges approximated opted for Monocryl subdermal stitches. Steri-Strips Telfa OpSite dressings applied. Sponge and instrument and needle counts were reported the surgeon to be correct. Specimens gallbladder and right lobe needle core biopsy. Drains 15 round GISEL drain to the right subhepatic space Blood loss 20 cc. Billy Glynn M.D., F.A.C.S. Type of Anesthesia:: General Anesthesiologist: Farzad Holguin
[2020-01-19 12:34] LABS: AST(SGOT) 72 U/L (15-37); Alanine Aminotransfer ALT/SGPT 39 U/L (16-61); Albumin, Serum 2.7 g/dL (3.2-5.0); Alkaline Phosphatase 69 U/L (45-117); Bilirubin, Direct 0.13 mg/dL (0.00-0.30); Globulin 4.1 g/dL (2.2-4.2); Protein, Total 6.8 g/dL (6.4-8.2)
[2020-01-19] MEDS: 0.9% Saline Lock 10 ML Syringe IV (13:34)
[2020-01-19] MEDS: Morphine 2 MG/ML Syringe IV ×2 (13:34→20:14)
--- NOTE | 2020-01-19 16:42 | PCM.PN.BLA ---
Progress Note Patient appears comfortable. Drain site has dressing stained Bloody drainage within GISEL. Nonbilious. Abdomen soft Continue care. Liver function test not remarkable. STROKE Vital Signs/Narrative: Vital Signs Temp Pulse Resp BP Pulse Ox 01/19/20 14:47 97.8 F 79 16 95/55 L 95 01/19/20 12:47 96.8 F L 75 18 102/53 L 91
[2020-01-19] MEDS: Divalproex Sodium 250 MG Tablet 500 MG PO (16:59)
[2020-01-19] MEDS: Senna Tablet 1 TABLET PO (20:13)
[2020-01-19] MEDS: Tamsulosin HCl 0.4 MG Capsule PO (20:14)
[2020-01-19] MEDS: Zonisamide 50 MG Capsule 100 MG PO (20:14)
[2020-01-19] MEDS: HYDROcodone Bitartrate/Apap 5/325 Tablet PO (23:53)
[2020-01-20 00:32] VITALS: BP 116/95; PULSE 87; RESP 18; TEMP 36.6; O2SAT 93
[2020-01-20] MEDS: Lactated Ringers 1,000 ML 70 ML IV (02:57)
[2020-01-20 04:47] VITALS: BP 106/58; PULSE 86; RESP 18; TEMP 36.7; O2SAT 93
--- NOTE | 2020-01-20 06:07 | PN.SURG_ITS ---
Subjective: Patient is alert appears to be comfortable. He is not describing any concerns - Physical Exam Vitals/I&O's: Vital Signs Temp Pulse Resp BP Pulse Ox 98.1 F 86 18 106/58 L 93 01/20/20 04:47 01/20/20 04:47 01/20/20 04:47 01/20/20 04:47 01/20/20 04:47 Oxygen Delivery Method Room Air Weight: 179 lb Body Mass Index (BMI) 25.0 Intake and Output for Last 24 Hours 01/18/20 01/19/20 01/20/20 23:59 23:59 23:59 Intake Total 1905 / 2945 1700 / 1700 Output Total 140 / 365 225 / 225 Balance 1765 / 2580 1475 / 1475 Lungs: Clear to auscultation Abdomen: Soft, Non Tender, Hypoactive Bowel Sounds - Significant drainage at the GISEL site with soiled dressing. Serosanguineous drainage within the GISEL Laboratory Results 01/19/20 11:55: Total Bilirubin 0.20, Direct Bilirubin 0.13, AST 72 H, ALT 39, Alkaline Phosphatase 69, Total Protein 6.8, Albumin 2.7 L, Globulin 4.1 Current Medications Acetaminophen (Tylenol) 650 mg PO Q6H PRN PRN PRN Reason: Pain Score 1-10/10 Hydrocodone Bitart/Acetaminophen ([place]oa 5mg-325mg) 1 - 2 tablet PO Q6H PRN PRN PRN Reason: Pain Score 1-10/10 Last Admin: 01/19/20 23:53 Dose: 2 tablet Documented by: Divalproex Sodium (Depakote) 500 mg PO DAILY@1700 [facility] Last Admin: 01/19/20 16:59 Dose: 500 mg Documented by: Divalproex Sodium (Depakote) 500 mg PO DAILY@0800 [facility] Docusate Sodium (Colace) 100 mg PO DAILY PRN PRN PRN Reason: Constipation Enoxaparin Sodium (Lovenox) 40 mg SC DAILY [facility] Lactated Ringer's () 1,000 mls @ 70 mls/hr IV .[id number] [facility] Last Admin: 01/20/20 02:57 Dose: 70 mls/hr Documented by: Sodium Chloride () 250 mls @ 15 mls/hr IV .[id number] PRN PRN Reason: Saline Flush Influenza Virus Vaccine Quadrival (Flucelvax /Fluzone ) 0.5 ml IM .ONCE ONE Stop: 01/20/20 10:01 Morphine Sulfate () 2 - 4 mg IV Q2H PRN PRN PRN Reason: Pain Score 1-10/10 Last Admin: 01/19/20 20:14 Dose: 2 mg Documented by: Morphine Sulfate () 2 - 4 mg IV Q2H PRN PRN PRN Reason: Pain Score 1-10/10 Ondansetron HCl (Zofran) 4 mg IV Q8H PRN PRN PRN Reason: NAUSEA Polyethylene Glycol (Miralax) 17 gm PO DAILY@08 [facility] Senna (Senokot) 1 tablet PO DAILY@799,1999 [facility] Last Admin: 01/19/20 20:13 Dose: 1 tablet Documented by: Sodium Chloride () 10 - 40 ml IV UD PRN PRN Reason: SALINE FLUSH Last Admin: 01/19/20 13:34 Dose: 10 ml Documented by: Tamsulosin HCl (Flomax) 0.4 mg PO QHS [facility] Last Admin: 01/19/20 20:14 Dose: 0.4 mg Documented by: Zonisamide (Zonegran) 100 mg PO BID@ [facility] Last Admin: 01/19/20 20:14 Dose: 100 mg Documented by: Medical Necessity - Tobacco Use Smoking Status: Never smoker Tobacco Use: Non-smoker Assessment/Plan All Active Problems (Last Reviewed 12/19/19 @ 13:45 by Tayler Sandoval) Sepsis (Acute) Acute kidney injury (Acute) Good progress. I anticipate discharge with the GISEL in place. He has erythema in his incision sites. I believe that this is some simple ecchymosis as well as some allergic response. I removed some of the OpSite dressings. We will leave the Steri-Strips intact. Plan discharge back to the long-term today. The GISEL will remain in place until Sunday. He had a technically challenging gallbladder and the infundibular area the gallbladder was secured with an Endoloop. I want to make sure that a delayed bile leak does not occur. We will advance his diet. Labs are pending. Billy Glynn M.D., F.A.C.S.
[2020-01-20 06:11] LABS: Absolute Lymphocyte Count 2.87 X10^3/uL (0.83-4.51); Absolute Neutrophil Count 10.5 X10^3/uL (2.0-7.7); Basophil# 0.01 X10^3/uL; Basophil% 0.1 % (0-1); Hematocrit 35.6 % (40-54); Hemoglobin 11.6 g/dL (13.0-16.5); Lymphocyte # 2.87 X10^3/ul (4.0); Lymphocyte % 18.8 % (19-41); Mean Corp Hgb Conc 32.6 g/dL (32-36); Mean Corpuscular Hgb 32.1 pg (27.0-32.0); Mean Corpuscular Volume 98.6 fL (80-94); Monocyte# 1.72 X10^3/uL; Monocyte% 11.3 % (0-10); NRBC Flagged by Analyzer 0 % (0-5); Neutrophil # 10.53 X10^3/uL (2.7-7.7); Neutrophil % 69.1 % (47-70); POSITIVE DIFFERENTIAL YES; Platelet Count 212 K/mm3 (150-450); Red Blood Count 3.61 M/mm3 (4.6-6.2); White Blood Count 15.2 K/mm3 (4.4-11.0)
[2020-01-20 06:15] LABS: Differential Indicated SCAN CRITERIA MET
[2020-01-20 06:45] LABS: Differential Comment SCANNED
[2020-01-20 06:46] LABS: ALB/GLOB Ratio 0.7 RATIO (0.9-2.4); AST(SGOT) 50 U/L (15-37); Alanine Aminotransfer ALT/SGPT 32 U/L (16-61); Albumin, Serum 2.5 g/dL (3.2-5.0); Alkaline Phosphatase 58 U/L (45-117); Anion Gap 6 (5-15); BUN 18 mg/dL (7-18); BUN/Creat Ratio 22.4 RATIO (10-20); Chloride 103 mmol/L (98-107); EST Glomerular Filtration Rate 103 mL/min (>60); Est Glom Filt Rate - Afr Amer 125 mL/min (>60); Estimated Creatinine Clearance 100.66 ml/min; Globulin 3.7 g/dL (2.2-4.2); Glucose 110 mg/dL (74-106); Protein, Total 6.2 g/dL (6.4-8.2); Sodium Level 137 mmol/L (136-145)
[2020-01-20 09:24] VITALS: BP 111/55; PULSE 75; RESP 18; TEMP 36.2; O2SAT 94
[2020-01-20] MEDS: Zonisamide 50 MG Capsule 100 MG PO (09:25)
[2020-01-20] MEDS: Divalproex Sodium 250 MG Tablet 500 MG PO (09:25)
[2020-01-20] MEDS: Polyethylene Glycol 3350 17 GM PACKET PO (09:25)
[2020-01-20] MEDS: Enoxaparin 40 MG/0.4 ML Syringe SC (09:26)
[2020-01-20] MEDS: Senna Tablet 1 TABLET PO (09:26)
--- NOTE | 2020-01-20 09:31 | PCM.TXEXTCAR ---
- Diet 01/20/20 06:09 Diet: Full Liquid Is pt able to select menu?: No Advance to previous regular diet as tolerated - Wound(s) ABDOMEN Wound Type: Cleanse the GISEL site with Q-tip and peroxide and apply dry sterile dressings daily or as needed to keep dry dressings intact. Completely tape and secure the dressing so that the tube is secured Dressing Change: Dry Sterile Dressing - Suggestions for Active Care Change Position every (hours): 2 - Therapies Weight Bearing: Full weight bearing - Problem/Diagnosis (1) Cholelithiasis with chronic cholecystitis Status: Chronic Current Visit: Yes - Allergies/Procedures Done in Hospital Allergies/Adverse Reactions: Allergies camphor [From Vicks Vaporub] Allergy (Verified 12/19/19 13:44) Other clobazam [From Onfi] Allergy (Verified 12/19/19 13:44) Other eucalyptus [From Vicks Vaporub] Allergy (Verified 12/19/19 13:44) Other eucalyptus oil [From Vicks Vaporub] Allergy (Verified 12/19/19 13:44) Other levetiracetam [From Keppra] Allergy (Verified 12/19/19 13:44) Other menthol [From Vicks Vaporub] Allergy (Verified 12/19/19 13:44) Other petrolatum,white [From Vicks Vaporub] Allergy (Verified 12/19/19 13:44) Other turpentine oil [From Vicks Vaporub] Allergy (Verified 12/19/19 13:44) Other - Type of Care/Length of Stay Estimated LOS: Convalescent Care Less Than 30 days Type of Care Needed: Skilled Rehab Potential: Good Prognosis: Good - Additional Orders/Day of Discharge Day of Discharge: 01/20/20 - Follow Up Care Primary Care Physician: Brennan Glynn III, MD [Primary Care Provider] - Please Follow Up With: Billy Glynn MD - [phone] When: Office appointment Sunday for GISEL removal
[2020-01-20] MEDS: HYDROcodone Bitartrate/Apap 5/325 Tablet PO (09:35)
--- NOTE | 2020-01-20 10:18 | PHA.DC.MR ---
Pharmacy Service has performed discharge medication reconciliation for this patient upon transfer to [facility]. Home Medications Docusate Sodium [Dok] 100 mg PO DAILY PRN PRN 10/13/19 Lamotrigine [Lamictal Xr] 100 mg PO DAILY@0800 10/16/19 Zonisamide 100 mg PO BID@0800,199910/16/19 Divalproex Sodium 500 mg PO DAILY@1700 12/08/19 Multivitamin/Iron/Folic Acid [Certavite-Antioxidant Tablet] 1 tab PO DAILY@0800 12/08/19 Pyridoxine HCl (Vitamin B6) [Vitamin B-6] 100 mg PO DAILY@0800 12/08/19 Sennosides [Senna Laxative] 8.6 mg PO DAILY@0800,199912/08/19 Tamsulosin HCl [Flomax] 0.4 mg PO QHS 12/08/19 Polyethylene Glycol 3350 [Gavilax] 17 gm PO DAILY@0800 #0 12/12/19 Calcium Carbonate/Vitamin D3 [Oyster Shell 500-Vit D3 200 Tb] 1 ea PO BID 01/05/20 Divalproex Sodium 500 mg PO DAILY 01/19/20 Hydrocodone Bitart/Apap 5-325 [[place] 5MG-325MG] 1 tab PO Q6H PRN PRN 2 Days #6 tab 01/19/20 The patient's discharge medication list was reviewed for discrepancies and discrepancies were resolved.
--- NOTE | 2020-01-20 10:57 | CASEMGMT ---
Addendum entered by Gabrielle Shultz 01/20/20 11:18: ANI received call from Noy at [facility], covering guardian for pt. Noy confirms plan is for pt to return to [facility]. Noy requests discharge paperwork and COVID test be faxed to [facility] at [phone]. Original Note: Social Work Note Pt is listed as being from [facility]. ANI placed a call to Keila at [facility]. Keila states pt has been at [facility] for a few months now and is able to return. ANI updated Keila that discharge is in for today so pt will discharge back today. Keila states she will also need COVID test for pt to return. Pt is listed as having a guardian. ANI placed a call to [facility] and left message for pt's guardian to return this worker's phone call. ANI waiting for call back. Plan: Likely return back to [facility] today. ANI waiting to hear from pt's guardian Ramesh to confirm plans. Gabrielle Shultz SIEBEL CRM DEVELOPER, TRAVELING ELECTRICIAN
--- NOTE | 2020-01-20 13:33 | NURSING ---
called report to Anastacia at [facility] at this time. notified of miner pick time of 1400.
--- NOTE | 2020-01-20 13:43 | CASEMGMT ---
Social Work Note Pt's COVID test is back and is negative. Pt can discharge to [facility] today. ANI faxed discharge paperwork to [facility] including transfer to extended care facility, signed medication list, any scripts, negative COVID test and COVID screening tool. Original in SNF folder and copy on pt's chart. ANI placed a call to [facility] and arranged transportation via cot for 2:00pm. Transportation form completed and placed on SNF folder and copy on pt's chart. ANI placed a call to Keila at [facility] and updated her on transportation time. Keila states she left work early, asked for this worker to call [facility] main number, ask for [address], to let staff know transportation time. ANI placed a call to [facility] and spoke with Arnaldo, updated her on discharge time. ANI placed a call to [facility] and left message updating pt's guardian on transportation time back to [facility]. ANI also faxed discharge paperwork and negative COVID test to [facility] per their request. RN updated on transportation time. Plan: Return to [facility] terminal press operator with [facility] transporting pt via cot at 2:00pm Gabrielle FERRARO, DIVERSIFIED CROPS SUPERVISOR
[2020-01-20 13:56] VITALS: BP 101/58; PULSE 75; RESP 18; TEMP 36.1; O2SAT 95
[2020-01-20 15:41] LABS: Pathologist Review Reviewed
== END 2020-01-20 14:00 | disposition skilled nursing facility (03) ==
LOC: SDC 12:41 → MS3 12:41
PROVIDERS: Admitting Provider Surgery; PCP Family Medicine; Referring Provider Surgery; Visit Provider Surgery
PROC: (CPT 47610; principal; 2020-01-19 08:45)
DX: K80.12 Calculus of gallbladder with acute and chronic cholecystitis without obstruction (principal); F79 Unspecified intellectual disabilities; Z79.899 Other long term (current) drug therapy; E78.00 Pure hypercholesterolemia, unspecified; Z23 Encounter for immunization; E87.6 Hypokalemia; N17.9 Acute kidney failure, unspecified; E87.2 Acidosis; K73.9 Chronic hepatitis, unspecified
CPT/HCPCS: 00790; 47000; 47563; 36415; 74300; 76000; 80053; 80076; 85025; 87635; 88304; 88307; 88313; 96361; 96372; 96374; 96376; 99218; J7120; 90686; A4216; G0378; G0379; J2405; U0003

== ENCOUNTER 2020-08-25 10:22 | Observation (INO) | payer MEDICAID, SELFPAY ==
[2020-01-19 07:33] VITALS: BMI 25.0
[2020-08-25] VITALS (7 sets, daily range): BP systolic 106–127; BP diastolic 58–94; PULSE 46–105; RESP 14–18; TEMP 35.8–37; O2SAT 93–100; BMI 22.2; BMI 23.4
--- NOTE | 2020-08-25 10:36 | EKG12_ITS ---
Test Reason : FLANK PAIN Blood Pressure : / mmHG Vent. Rate : 053 BPM Atrial Rate : 053 BPM P-R Int : 232 ms QRS Dur : 084 ms QT Int : 456 ms P-R-T Axes : 048 -06 015 degrees QTc Int : 427 ms Sinus bradycardia with 1st degree A-V block Otherwise normal ECG Confirmed by JOCELIN OVERTON, JOEL ([id number]), senior media planner MARKIE IBARRA ([id number]) on 08/30/2020 1:22:01 PM Referred By: PHU Confirmed By:JOEL MONREAL MD
--- NOTE | 2020-08-25 10:37 | EDS_ITS ---
HPI History of Present Illness Chief Complaint: Flank Pain Narrative Narrative: Patient presents from workshop. He is MRDD was complaining of left-sided back and flank pain, however they also saw that his eyes were yellow. Patient is verbal and can tell me he has back pain but cannot give me a good history or review of systems. [facility] Medical History (Updated 08/25/20 @ 13:[address] Pepe Pollard MD) Acute cholecystitis Acute kidney injury Mental retardation MRDD Seizure disorder Sepsis Home Medications docusate sodium 100 mg PO DAILY PRN PRN 10/13/19 [History Last Taken Unknown] lamotrigine 100 mg PO DAILY@0800 10/16/19 [History Last Taken 12/08/19] zonisamide 100 mg PO BID@0800,199910/16/19 [History Last Taken 01/19/20] divalproex 1,500 mg PO DAILY@1700 12/08/19 [History Last Taken 12/07/19] pipmbdbxusmz-wfxl-aagba acid 1 tab PO DAILY@0800 12/08/19 [History Last Taken 12/08/19] pyridoxine (vitamin B6) 100 mg PO DAILY@0800 12/08/19 [History Last Taken 12/08/19] sennosides 8.6 mg PO DAILY@0800,199912/08/19 [History Last Taken 12/08/19] tamsulosin 0.4 mg PO QHS 12/08/19 [History Last Taken 12/07/19] polyethylene glycol 3350 17 gm PO DAILY@0800 #0 12/12/19 [Rx Last Taken 12/08/19] calcium carbonate-vitamin D3 1 ea PO BID 01/05/20 [History Last Taken Unknown] Allergy/AdvReac Type Severity Reaction Status Date / Time camphor [From Vicks Vaporub] Allergy Other Verified 12/19/19 13:44 clobazam [From Onfi] Allergy Other Verified 12/19/19 13:44 eucalyptus Allergy Other Verified 12/19/19 13:44 [From Vicks Vaporub] eucalyptus oil Allergy Other Verified 12/19/19 13:44 [From Vicks Vaporub] levetiracetam [From Keppra] Allergy Other Verified 12/19/19 13:44 menthol [From Vicks Vaporub] Allergy Other Verified 12/19/19 13:44 petrolatum,white Allergy Other Verified 12/19/19 13:44 [From Vicks Vaporub] turpentine oil Allergy Other Verified 12/19/19 13:44 [From Vicks Vaporub] Surgical History history of jose m tube (~11/2019) Social History (Updated 01/23/20 @ 13:[address] Billy Glynn MD) Smoking Status: Never smoker ROS ROS ED ROS Narrative Past medical history: Reviewed, includes chronic cholecystitis, history of kidney disease, seizure disorder. Medications: Reviewed Social history: Noncontributory Review of systems: Unable secondary to patient's MRDD EXAM Physical Exam Narrative Exam Narrative: Physical exam General: MRDD features, he is pleasant but minimal interaction. Head: No signs of trauma Eyes: Scleral icterus present ENT: Moist mucous membranes Neck: Supple, Nontender, No lymphadenopathy Cardiovascular: Regular rate, Regular rhythm Respiratory: No distress, CTA bilaterally Abdomen: Soft, I do not palpate any hepatomegaly. The abdomen is nontender. Back: Left-sided CVA tenderness otherwise no midline pain. Extremities: Nontender, No edema Skin: Slight jaundice is present otherwise no rash Neurological: No gross focal deficits, he has minimal use of arms and legs he is in a wheelchair but this is all chronic. Const Vital Signs: 08/25/20 10:27 Temperature 98 F Temperature Source Temporal Pulse Rate 105 H Respiratory Rate 18 Blood Pressure 125/72 H Blood Pressure Mean 89 Pulse Ox 93 Oxygen Delivery Method Room Air MDM MDM MDM Narrative Medical decision making narrative: Patient is found to have hyperbilirubinemia which looks obstructive however the CT was unremarkable. He had cholecystectomy with only 1 stone, I did discuss with surgery but the likelihood is that this is not obstructive. Patient did have a biopsy which showed early liver cirrhosis which is likely the etiology of his symptoms. Since we do not have GI coverage at this facility he will be transferred. Lab Data Labs: Laboratory Results - last 24 hr 08/25/20 08/25/20 10:40 10:40 WBC 7.0 RBC 3.87 L Hgb 13.0 Hct 37.6 L MCV 97.2 H MCH 33.6 H MCHC 34.6 RDW Std Deviation 55.8 H RDW Coeff of Stephany 15.7 H Plt Count 79 L MPV 12.7 H Immature Gran % (Auto) 0.600 Neut % (Auto) 48.6 Lymph % (Auto) 34.6 [place] % (Auto) 12.4 H Eos % (Auto) 3.4 Baso % (Auto) 0.4 Absolute Neuts (auto) 3.4 Absolute Lymphs (auto) 2.42 Nucleated RBC % 0 Platelet Estimate MOD DEC Sodium 136 Potassium 3.4 L Chloride 103 Carbon Dioxide 28.0 Anion Gap 5 BUN 28 H Creatinine 0.94 Estim Creat Clear Calc 83.53 Est GFR (MDRD) Af Amer 103 Est GFR (MDRD) Non-Af 85 BUN/Creatinine Ratio 29.6 H Glucose 78 Calcium 9.2 Total Bilirubin 8.20 H Direct Bilirubin 6.74 H AST 161 H ALT 155 H Alkaline Phosphatase 218 H Troponin I < 0.015 Total Protein 6.8 Albumin 2.8 L Globulin 4.0 Lipase 157 Radiography Diagnostic Testing: Radiology Impression Abdomen/Pelvis CT 08/25/20 11:00 IMPRESSION: Status post cholecystectomy. Distended urinary bladder. Electronically Signed: Nilson Verma MD at 11:50 EDT , Service support , Discharge Plan Triage Chief Complaint: Flank Pain ED Provider: Pepe Pollard Dx/Rx/DC Orders Clinical Impression: Hyperbilirubinemia Prescriptions: No Action docusate sodium 100 MG capsule 100 mg PO DAILY PRN PRN (Reason: Constipation) RF: 0 zonisamide 100 MG capsule 100 mg PO BID@08,1999 RF: 0 lamotrigine 100 MG tablet extended release 24hr 100 mg PO DAILY@0800 RF: 0 sennosides 8.6 MG tablet 8.6 mg PO DAILY@08,1999 RF: 0 divalproex 500 MG tablet,delayed release (DR/EC) 1,500 mg PO DAILY@1700 RF: 0 tamsulosin 0.4 MG capsule 0.4 mg PO QHS RF: 0 pyridoxine (vitamin B6) 100 MG tablet 100 mg PO DAILY@0800 RF: 0 elbnkyopataq-kfff-dnhxv acid 1 EACH tablet 1 tab PO DAILY@0800 RF: 0 polyethylene glycol 3350 238 GM powder 17 gm PO DAILY@0800 Qty: 0 RF: 0 calcium carbonate-vitamin D3 1 EACH tablet 1 ea PO BID RF: 0 Primary Care Provider: Jesus Noble Referrals: Jesus Noble MD [Primary Care Provider] - Disposition Disposition: Transfer to another type HCF
[2020-08-25 10:55] LABS: Absolute Lymphocyte Count 2.42 X10^3/uL (0.83-4.51); Absolute Neutrophil Count 3.4 X10^3/uL (2.0-7.7); Basophil# 0.03 X10^3/uL; Basophil% 0.4 % (0-1); Eosinophil# 0.24 X10^3/uL; Eosinophils% 3.4 % (0-5); Hematocrit 37.6 % (40-54); Lymphocyte # 2.42 X10^3/ul (0.83-4.51); Lymphocyte % 34.6 % (19-41); Mean Corp Hgb Conc 34.6 g/dL (32-36); Mean Corpuscular Hgb 33.6 pg (27.0-32.0); Mean Corpuscular Volume 97.2 fL (80-94); Mean Platelet Vol. 12.7 fl (6.2-12.0); Monocyte# 0.87 X10^3/uL; Monocyte% 12.4 % (0-10); NRBC Flagged by Analyzer 0 % (0-5); Neutrophil % 48.6 % (47-70); POSITIVE COUNT YES; Platelet Count 79 K/mm3 (150-450); RBC Distribution Width CV 15.7 % (11.6-14.6); RBC Distribution Width SD 55.8 fl (35.1-43.9); Red Blood Count 3.87 M/mm3 (4.6-6.2)
[2020-08-25 10:56] LABS: Differential Indicated SCAN CRITERIA MET
--- NOTE | 2020-08-25 11:00 | CT_ITS ---
STUDY: CT ABDOMEN AND PELVIS WITHOUT CONTRAST REASON FOR EXAM: Male, 65 years old. Flank pain. RADIATION DOSAGE (If Supplied By Facility): CTDIvol = ( 12.96 ) mGy, DLP = ( 767.64 ) mGycm TECHNIQUE: Transaxial images were obtained from the dome of the diaphragm to the symphysis pubis without oral contrast, and without intravenous contrast. Sagittal and coronal images were reconstructed. Individualized dose optimization techniques were used for this CT. COMPARISON: Comparison is made with prior study dated 12/09/2019 and 12/08/2019. FINDINGS: Mild degree of increased markings at the lung bases suggestive of bibasilar atelectasis. Coronary artery calcification. Normal liver. The patient is status post cholecystectomy. Normal spleen. Normal pancreas. Normal bilateral adrenal glands. Normal right kidney. Normal left kidney. Normal visualized stomach. Normal small intestine. Normal colon. The appendix is visualized and appears normal. There is diffuse atherosclerotic calcification of the abdominal aorta and its major visceral branches, without a demonstrated aneurysm. Normal inferior vena cava. Normal retroperitoneum. Distended urinary bladder. There is enlargement of the prostate gland. The prostate measures 3.8 cm x 3.9 sinus. This causes indentation at the bladder base. Small left hydrocele. There are diffuse degenerative changes of the visualized lumbar spine. CT/Abdomen/Pelvis without Cont IMPRESSION: Status post cholecystectomy. Distended urinary bladder. Electronically Signed: Nilson Verma MD at 11:50 EDT , Service support ,
[2020-08-25 11:14] LABS: AST(SGOT) 161 U/L (15-37); Alanine Aminotransfer ALT/SGPT 155 U/L (16-61); Albumin, Serum 2.8 g/dL (3.2-5.0); Alkaline Phosphatase 218 U/L (45-117); Anion Gap 5 (5-15); BUN 28 mg/dL (7-18); BUN/Creat Ratio 29.6 RATIO (10-20); Bilirubin, Direct 6.74 mg/dL (0.00-0.30); Calcium,Total 9.2 mg/dL (8.5-10.1); Chloride 103 mmol/L (98-107); Creatinine, Serum 0.94 mg/dL (0.70-1.30); EST Glomerular Filtration Rate 85 mL/min (>60); Est Glom Filt Rate - Afr Amer 103 mL/min (>60); Estimated Creatinine Clearance 83.53 ml/min; Glucose 78 mg/dL (74-106); Lipase 157 U/L (73-393); Potassium 3.4 mmol/L (3.5-5.1); Protein, Total 6.8 g/dL (6.4-8.2); Sodium Level 136 mmol/L (136-145)
[2020-08-25 11:21] LABS: Platelet Estimate MOD DEC (ADEQ)
--- NOTE | 2020-08-25 12:41 | NURSING ---
1230 CALLED [facility] FOR TRANSFER. NO BEDS FOR A WHILE
--- NOTE | 2020-08-25 12:42 | NURSING ---
CALLED [facility]. TALKED TO MELLY. WILL BE A WAIT FOR A BED
--- NOTE | 2020-08-25 12:51 | NURSING ---
FACESHEET FAXED TO [facility]
--- NOTE | 2020-08-25 15:59 | PCM.HP.STD ---
Documented by User: Ari AVALOS 08/25/20 16:16 HPI - General General Date of Admission: 08/25/20 HPI Narrative Patient is a 65-year-old male who presents to the ED at [facility] for evaluation of hyperbilirubinemia. Patient presents to the ED from a residential. Patient has severe intellectual disability and cannot provide insight, history or review of systems into his current condition. Patient does acknowledge that he has some mild right and left upper quadrant pain. CBC demonstrated thrombocytopenia with platelets at 79. Chemistries demonstrated hypokalemia at 3.4, a T bili of 8.2, direct bilirubin of 6.74, elevated AST and ALT at 161 and 155 respectively, and an elevated alk phos at 218. CT of the abdomen and pelvis only demonstrated a distended urinary bladder s/p cholecystectomy and displayed no evidence of obstruction. Review of patient records show that patient did have a liver biopsy which showed early cirrhosis, which may explain patient's abnormal labs. Patient needs a higher level of care and is currently awaiting bed availability at [facility] for proper GI evaluation. [facility] Medical History (Updated 08/25/20 @ 14:34 by Teresa Herzog) Acute cholecystitis Acute kidney injury Arthritis Cerebellar atrophy Dysmetabolic syndrome Gait disturbance Hyperlipemia Mental retardation MRDD Seizure disorder Sepsis Home Medications lamotrigine 100 mg PO DAILY@0800 10/16/19 [History Last Taken 08/25/20 08:00] zonisamide 100 mg PO BID@799,199910/16/19 [History Last Taken 08/25/20 08:00] divalproex 1,500 mg PO DAILY@199912/08/19 [History Last Taken 08/24/20 20:00] rxukmpzwizvt-tvpp-koifu acid 1 tab PO DAILY@0800 12/08/19 [History Last Taken 08/25/20 08:00] pyridoxine (vitamin B6) 100 mg PO DAILY@00 12/08/19 [History Last Taken 08/25/20 08:00] sennosides 8.6 mg PO DAILY@799,199912/08/19 [History Last Taken 08/25/20 08:00] tamsulosin 0.4 mg PO QHS 12/08/19 [History Last Taken 08/24/20 20:00] polyethylene glycol 3350 17 gm PO DAILY@0800 #0 12/12/19 [Rx Last Taken 08/25/20 08:00] calcium carbonate-vitamin D3 1 ea PO BID@08,199901/05/20 [History Last Taken 08/25/20 08:00] Allergy/AdvReac Type Severity Reaction Status Date / Time camphor [From Vicks Vaporub] Allergy Other Verified 12/19/19 13:44 clobazam [From Onfi] Allergy Other Verified 12/19/19 13:44 eucalyptus Allergy Other Verified 12/19/19 13:44 [From Vicks Vaporub] eucalyptus oil Allergy Other Verified 12/19/19 13:44 [From Vicks Vaporub] levetiracetam [From Keppra] Allergy Other Verified 12/19/19 13:44 menthol [From Vicks Vaporub] Allergy Other Verified 12/19/19 13:44 petrolatum,white Allergy Other Verified 12/19/19 13:44 [From Vicks Vaporub] turpentine oil Allergy Other Verified 12/19/19 13:44 [From Vicks Vaporub] Surgical History (Updated 08/25/20 @ 14:48 by Teresa Herzog) history of jose m tube (~11/2019) S/P placement of VNS (vagus nerve stimulation) device Social History (Updated 01/23/20 @ 13:[address] Billy Glynn MD) Smoking Status: Never smoker ROS ROS Narrative See subjective. Review of Systems ROS Unobtainable: due to encephalopathy, due to endotracheal tube, due to mental condition, due to mental status and other Vital Signs Vital Signs Vital Signs: 08/25/20 10:27 08/25/20 13:12 08/25/20 14:35 Temperature 98 F 96.4 F L Temperature Source Temporal Temporal Pulse Rate 105 H 47 L 46 L Respiratory Rate 18 14 16 Blood Pressure 125/72 H 112/58 L 123/66 H Blood Pressure Mean 89 76 85 Blood Pressure Source Blood Pressure Position Blood Pressure Location Pulse Ox 93 98 97 Oxygen Delivery Method Room Air Room Air Room Air 08/25/20 14:56 Temperature 98.6 F Temperature Source Oral Pulse Rate 51 L Respiratory Rate 16 Blood Pressure 106/94 H Blood Pressure Mean 98 Blood Pressure Source Monitor Blood Pressure Position Semi-Fowlers Blood Pressure Location Right Arm Pulse Ox 99 Oxygen Delivery Method Room Air Physical Exam Narrative Limited physical exam, see HPI. Const alert Orientation / Consciousness: confused and disoriented HEENT normocephalic, head/scalp atraumatic and hearing grossly normal bilaterally Eyes Eyes Narrative: Eyes yellow on physical exam. Sclera: sclera abnormal Neck no lymphadenopathy, supple and no JVD Resp normal respiratory effort and clear to auscultation bilaterally Cardio regular rate, regular rhythm, no murmurs and no JVD GI normal to inspection, nondistended, normoactive bowel sounds GI Narrative: Tenderness about the right and left upper quadrants. Extremity normal to inspection Skin Skin Narrative: Jaundiced evidenced throughout body. Neuro Neuro Narrative: Unable to assess due to patient's mental status. Psych affect normal Lab / Micro Data Result Diagrams: 08/25/20 10:40 08/25/20 10:40 Labs: Laboratory Results - last 24 hr 08/25/20 08/25/20 10:40 10:40 WBC 7.0 RBC 3.87 L Hgb 13.0 Hct 37.6 L MCV 97.2 H MCH 33.6 H MCHC 34.6 RDW Std Deviation 55.8 H RDW Coeff of Stephany 15.7 H Plt Count 79 L MPV 12.7 H Immature Gran % (Auto) 0.600 Neut % (Auto) 48.6 Lymph % (Auto) 34.6 White % (Auto) 12.4 H Eos % (Auto) 3.4 Baso % (Auto) 0.4 Absolute Neuts (auto) 3.4 Absolute Lymphs (auto) 2.42 Nucleated RBC % 0 Platelet Estimate MOD DEC Sodium 136 Potassium 3.4 L Chloride 103 Carbon Dioxide 28.0 Anion Gap 5 BUN 28 H Creatinine 0.94 Estim Creat Clear Calc 83.53 Est GFR (MDRD) Af Amer 103 Est GFR (MDRD) Non-Af 85 BUN/Creatinine Ratio 29.6 H Glucose 78 Calcium 9.2 Total Bilirubin 8.20 H Direct Bilirubin 6.74 H AST 161 H ALT 155 H Alkaline Phosphatase 218 H Troponin I < 0.015 Total Protein 6.8 Albumin 2.8 L Globulin 4.0 Lipase 157 Radiology Impression Abdomen/Pelvis CT 08/25/20 11:00 IMPRESSION: Status post cholecystectomy. Distended urinary bladder. Electronically Signed: Nilson Verma MD at 11:50 EDT , Service support , Assessment & Plan Assessment/Plan (1) Hyperbilirubinemia: (2) MRDD: (3) Mental retardation: PLAN: Patient is a 65-year-old male who presents to the ED at [facility] for evaluation of hyperbilirubinemia. Patient has severe intellectual disability and cannot provide insight, history or review of systems into his current condition. Patient does acknowledge that he has some mild right and left upper quadrant pain. CBC demonstrated thrombocytopenia with platelets at 79. Chemistries demonstrated hypokalemia at 3.4, a T bili of 8.2, direct bilirubin of 6.74, elevated AST and ALT at 161 and 155 respectively, and an elevated alk phos at 218. CT of the abdomen and pelvis only demonstrated a distended urinary bladder s/p cholecystectomy and displayed no evidence of obstruction. Review of patient records show that patient did have a liver biopsy which showed early cirrhosis, which may explain patient's abnormal labs. Patient requires a higher level of care and is currently waiting for a bed placement at [facility] for proper GI evaluation. Past medical history significant for acute cholecystitis, SHONDA arthritis of the left knee, cerebellar atrophy, this metabolic syndrome, gait disturbance, hyperlipemia, MRDD, seizure disorder and sepsis. 1) Hyperbilirubinemia Labs as above. Plan; calcium and vitamin D initiated, vitamin B6 initiated, senna initiated and MiraLAX initiated. Divalproex and docusate on hold. Currently waiting for bed to open up at [facility] DVT prophylaxis -low risk, not indicated Patient seen by Ari Gale PA-C, under the supervision of Dr. Torres. Documented by User: Dr. Donald Torres MD 08/25/20 17:26 HPI - General General Date of Admission: 08/25/20 [facility] Medical History (Updated 08/25/20 @ 14:34 by Teresa Herzog) Acute cholecystitis Acute kidney injury Arthritis Cerebellar atrophy Dysmetabolic syndrome Gait disturbance Hyperlipemia Mental retardation MRDD Seizure disorder Sepsis Home Medications lamotrigine 100 mg PO DAILY@0800 10/16/19 [History Last Taken 08/25/20 08:00] zonisamide 100 mg PO BID@0800,199910/16/19 [History Last Taken 08/25/20 08:00] divalproex 1,500 mg PO DAILY@199912/08/19 [History Last Taken 08/24/20 20:00] wmgrkqttkemo-vlax-heetv acid 1 tab PO DAILY@0800 12/08/19 [History Last Taken 08/25/20 08:00] pyridoxine (vitamin B6) 100 mg PO DAILY@0800 12/08/19 [History Last Taken 08/25/20 08:00] sennosides 8.6 mg PO DAILY@0800,199912/08/19 [History Last Taken 08/25/20 08:00] tamsulosin 0.4 mg PO QHS 12/08/19 [History Last Taken 08/24/20 20:00] polyethylene glycol 3350 17 gm PO DAILY@0800 #0 12/12/19 [Rx Last Taken 08/25/20 08:00] calcium carbonate-vitamin D3 1 ea PO BID@0800,199901/05/20 [History Last Taken 08/25/20 08:00] Allergy/AdvReac Type Severity Reaction Status Date / Time camphor [From Vicks Vaporub] Allergy Other Verified 12/19/19 13:44 clobazam [From Onfi] Allergy Other Verified 12/19/19 13:44 eucalyptus Allergy Other Verified 12/19/19 13:44 [From Vicks Vaporub] eucalyptus oil Allergy Other Verified 12/19/19 13:44 [From Vicks Vaporub] levetiracetam [From Keppra] Allergy Other Verified 12/19/19 13:44 menthol [From Vicks Vaporub] Allergy Other Verified 12/19/19 13:44 petrolatum,white Allergy Other Verified 12/19/19 13:44 [From Vicks Vaporub] turpentine oil Allergy Other Verified 12/19/19 13:44 [From Vicks Vaporub] Surgical History (Updated 08/25/20 @ 14:48 by Teresa Herzog) history of jose m tube (~11/2019) S/P placement of VNS (vagus nerve stimulation) device Social History (Updated 01/23/20 @ 13:[address] Billy Glynn MD) Smoking Status: Never smoker Lab / Micro Data Result Diagrams: 08/25/20 10:40 08/25/20 10:40 Addendum Addendum: Dr. Torres: I personally reviewed the chart and examined the patient, and agree with the above findings. 65-year-old male with severe intellectual disability presents to the hospital with abdominal pain. The pupils gentleman also noticed that his eyes were yellow unfortunately he is unable to provide a thorough history as when symptoms started. In the ER he was found to have hyperbilirubinemia most direct, with a total bilirubin of 8.2 and a direct bilirubin of 6.74. Back in December 2019 he had his gallbladder removed therefore surgery did not feel that this was a stone and felt that he needed to be seen by litharge supervisor. His AST is 161 which is much higher than baseline his ALT is 155 with an elevated alk phos of 218. The ER had facilitated transfer of him to [facility] however they will not have a bed for another 12 to 24 hours. He does have a history of seizure disorders and is on Keppra and Lamictal both of which can cause a hepatitis, will check the levels if he still here in the morning. Visit Charges Inpatient E&M: [id number] Init Hosp L3
[2020-08-25] MEDS: Divalproex Sodium 250 MG Tablet 1500 MG PO (17:15)
[2020-08-25] MEDS: Calcium Carb/Vitamin D 1 TABLET Tablet PO (17:16)
--- NOTE | 2020-08-25 20:20 | NURSING ---
Verbal consent for transfer to [facility] received from Guardian Jacinda Jones at this time: [phone]
--- NOTE | 2020-08-25 20:43 | NURSING ---
Verbal report given to Alexa PAINTER at [facility] at this time.
[2020-08-25] MEDS: Senna Tablet 1 TABLET PO (21:05)
[2020-08-25] MEDS: Tamsulosin HCl 0.4 MG Capsule PO (21:05)
[2020-08-25] MEDS: ZONISAMIDE 100 MG CAPSULE PO (21:05)
--- NOTE | 2020-08-26 13:58 | DS.PCM_ITS ---
Providers Date of Admission: 08/25/20 Primary Care Physician: Dr. Jesus Noble MD Reason For Visit: HYPERBILIRUBINEMIA Diagnosis Discharge Diagnosis (1) Hyperbilirubinemia: Status: Acute Code(s): E80.6 - Other disorders of bilirubin metabolism (2) MRDD: Status: Chronic (3) Mental retardation: Status: Chronic Medications at Discharge Home Medications lamotrigine 100 mg PO DAILY@0800 10/16/19 zonisamide 100 mg PO BID@0800,199910/16/19 divalproex 1,500 mg PO DAILY@199912/08/19 uoznvsjvjukp-yssj-eqyyw acid 1 tab PO DAILY@0800 12/08/19 pyridoxine (vitamin B6) 100 mg PO DAILY@0800 12/08/19 sennosides 8.6 mg PO DAILY@0800,199912/08/19 tamsulosin 0.4 mg PO QHS 12/08/19 polyethylene glycol 3350 17 gm PO DAILY@0800 #0 12/12/19 calcium carbonate-vitamin D3 1 ea PO BID@0800,199901/05/20 Hospital Course Operations None Procedures None Summary of Care Provided Minutes Spent on Discharge: 35 Hospital Course: HPI Narrative Patient is a 65-year-old male who presents to the ED at [facility] for evaluation of hyperbilirubinemia. Patient presents to the ED from a fpc. Patient has severe intellectual disability and cannot provide insight, history or review of systems into his current condition. Patient does acknowledge that he has some mild right and left upper quadrant pain. CBC demonstrated thrombocytopenia with platelets at 79. Chemistries demonstrated hypokalemia at 3.4, a T bili of 8.2, direct bilirubin of 6.74, elevated AST and ALT at 161 and 155 respectively, and an elevated alk phos at 218. CT of the abdomen and pelvis only demonstrated a distended urinary bladder s/p cholecystectomy and displayed no evidence of obstruction. Review of patient records show that patient did have a liver biopsy which showed early cirrhosis, which may explain patient's abnormal labs. Patient needs a higher level of care and is currently awaiting bed availability at [facility] for proper GI evaluation. Hospital Course: 6 hours after admission he was accepted by [facility] and was transferred. While here his vital signs remained stable and no further interventions were carried out. ABG / Lab / Microbiology Data Result Diagrams: 08/25/20 10:40 08/25/20 10:40 Meaningful Use Info Meaningful Use Diagnoses (Choose all that apply): None applicable Discharge Plan Admission Admit Date/Time: 08/25/20 14:07 Attending Provider: Donald Torres Primary Care Provider: Jesus Noble Discharge Orders/Prescriptions Prescriptions: No Action zonisamide 100 MG capsule 100 mg PO BID@799,1999 RF: 0 lamotrigine 100 MG tablet extended release 24hr 100 mg PO DAILY@0800 RF: 0 sennosides 8.6 MG tablet 8.6 mg PO DAILY@799,1999 RF: 0 divalproex 500 MG tablet,delayed release (DR/EC) 1,500 mg PO DAILY@1999 RF: 0 tamsulosin 0.4 MG capsule 0.4 mg PO QHS RF: 0 pyridoxine (vitamin B6) 100 MG tablet 100 mg PO DAILY@0800 RF: 0 ryoxclxfcvoa-aydl-zistj acid 1 EACH tablet 1 tab PO DAILY@0800 RF: 0 polyethylene glycol 3350 238 GM powder 17 gm PO DAILY@0800 Qty: 0 RF: 0 calcium carbonate-vitamin D3 1 EACH tablet 1 ea PO BID@799,1999 RF: 0 Referrals / Follow Up: Jesus Noble MD [Primary Care Provider] - Disposition Disposition (needs filled in before D/C Order can be placed): Acute Care Hospital Visit Charges OBSV E&M: 77574 Observ/hosp same date L3
== END 2020-08-25 22:00 | disposition short-term general hospital (02) ==
LOC: ED 13:12 → PCU 08-26 10:11
PROVIDERS: Admitting Provider Family Medicine; Emergency Provider Emergency Medicine; PCP Family Medicine; Visit Provider Family Medicine
DX: E80.6 Other disorders of bilirubin metabolism (principal); R10.12 Left upper quadrant pain; G40.909 Epilepsy, unspecified, not intractable, without status epilepticus; F72 Severe intellectual disabilities; E78.5 Hyperlipidemia, unspecified; M19.90 Unspecified osteoarthritis, unspecified site; R26.9 Unspecified abnormalities of gait and mobility; Z79.899 Other long term (current) drug therapy; E88.81 Metabolic syndrome and other insulin resistance
CPT/HCPCS: 74176; 80048; 80076; 83690; 84484; 85025; 93005; 99218; 99284; G0378

== ENCOUNTER → 2020-09-21 | Outpatient (REF) | payer MEDICAID, SELFPAY ==
[2020-08-25 14:53] VITALS: BMI 23.4
[2020-09-21 08:37] LABS: Hematocrit 31.8 % (40-54); Hemoglobin 10.2 g/dL (13.0-16.5); Mean Corp Hgb Conc 32.1 g/dL (32-36); Mean Corpuscular Hgb 33.9 pg (27.0-32.0); Mean Corpuscular Volume 105.6 fL (80-94); Mean Platelet Vol. 12.6 fl (6.2-12.0); POSITIVE MORPHOLOGY YES; Platelet Count 183 K/mm3 (150-450); RBC Distribution Width CV 22.9 % (11.6-14.6); RBC Distribution Width SD 87.9 fl (35.1-43.9); Red Blood Count 3.01 M/mm3 (4.6-6.2); White Blood Count 8.3 K/mm3 (4.4-11.0)
[2020-09-21 08:39] LABS: Scan Indicated on CBC? Y/N YES- FLAGS NOTED
[2020-09-21 09:03] LABS: ALB/GLOB Ratio 0.5 RATIO (0.9-2.4); AST(SGOT) 100 U/L (15-37); Alanine Aminotransfer ALT/SGPT 56 U/L (16-61); Albumin, Serum 2.1 g/dL (3.2-5.0); Alkaline Phosphatase 248 U/L (45-117); Anion Gap 6 (5-15); BUN 28 mg/dL (7-18); Calcium,Total 9.8 mg/dL (8.5-10.1); Chloride 106 mmol/L (98-107); Creatinine, Serum 0.97 mg/dL (0.70-1.30); EST Glomerular Filtration Rate 83 mL/min (>60); Est Glom Filt Rate - Afr Amer 101 mL/min (>60); Globulin 4.2 g/dL (2.2-4.2); Glucose 60 mg/dL (74-106); Magnesium 2.3 mg/dL (1.6-2.6); Potassium 3.8 mmol/L (3.5-5.1); Protein, Total 6.3 g/dL (6.4-8.2); Sodium Level 140 mmol/L (136-145)
[2020-09-21 09:04] LABS: Valproic Acid (Depakene) Level 136 ug/mL (50-100)
== END | disposition home or self-care (01) ==
LOC: OLS.SW300 04:00
PROVIDERS: PCP Family Medicine; Referring Provider Internal Medicine; Visit Provider Internal Medicine
DX: G40.909 Epilepsy, unspecified, not intractable, without status epilepticus (principal)
CPT/HCPCS: 36415; 80053; 80164; 83735; 85027

== ENCOUNTER → 2020-09-22 | Outpatient (REF) | payer MEDICAID, SELFPAY ==
[2020-08-25 14:53] VITALS: BMI 23.4
[2020-09-22 09:12] LABS: Hematocrit 29.2 % (40-54); Hemoglobin 9.4 g/dL (13.0-16.5); Mean Corp Hgb Conc 32.2 g/dL (32-36); Mean Corpuscular Hgb 34.6 pg (27.0-32.0); Mean Corpuscular Volume 107.4 fL (80-94); Mean Platelet Vol. 12.6 fl (6.2-12.0); POSITIVE MORPHOLOGY YES; Platelet Count 156 K/mm3 (150-450); RBC Distribution Width SD 86.4 fl (35.1-43.9); Red Blood Count 2.72 M/mm3 (4.6-6.2); White Blood Count 7.4 K/mm3 (4.4-11.0)
[2020-09-22 09:14] LABS: Scan Indicated on CBC? Y/N YES- FLAGS NOTED
[2020-09-22 09:28] LABS: ALB/GLOB Ratio 0.5 RATIO (0.9-2.4); AST(SGOT) 91 U/L (15-37); Alanine Aminotransfer ALT/SGPT 51 U/L (16-61); Albumin, Serum 2.1 g/dL (3.2-5.0); Alkaline Phosphatase 227 U/L (45-117); Anion Gap 6 (5-15); BUN 27 mg/dL (7-18); Calcium,Total 9.6 mg/dL (8.5-10.1); Chloride 104 mmol/L (98-107); Creatinine, Serum 0.84 mg/dL (0.70-1.30); EST Glomerular Filtration Rate 97 mL/min (>60); Est Glom Filt Rate - Afr Amer 118 mL/min (>60); Ferritin 1430 ng/mL (26-388); Glucose 73 mg/dL (74-106); Iron 74 ug/dL (65-175); Potassium 3.6 mmol/L (3.5-5.1); Protein, Total 6.1 g/dL (6.4-8.2); Sodium Level 138 mmol/L (136-145)
[2020-09-22 09:49] LABS: Differential Comment SCANNED
== END | disposition home or self-care (01) ==
LOC: OLS.SW300 05:00
PROVIDERS: PCP Family Medicine; Referring Provider Internal Medicine; Visit Provider Internal Medicine
DX: N17.1 Acute kidney failure with acute cortical necrosis (principal); G40.919 Epilepsy, unspecified, intractable, without status epilepticus; D64.9 Anemia, unspecified
CPT/HCPCS: 36415; 80053; 82728; 83540; 85027

== ENCOUNTER → 2020-09-26 11:05 | Outpatient (REF) | payer MEDICAID, SELFPAY ==
[2020-08-25 14:53] VITALS: BMI 23.4
[2020-09-26 11:41] LABS: Anion Gap 5 (5-15); BUN 30 mg/dL (7-18); BUN/Creat Ratio 29.4 RATIO (10-20); Calcium,Total 10.4 mg/dL (8.5-10.1); Chloride 105 mmol/L (98-107); Creatinine, Serum 1.02 mg/dL (0.70-1.30); EST Glomerular Filtration Rate 78 mL/min (>60); Est Glom Filt Rate - Afr Amer 95 mL/min (>60); Glucose 103 mg/dL (74-106); Potassium 4.3 mmol/L (3.5-5.1); Sodium Level 139 mmol/L (136-145)
[2020-09-26 20:02] VITALS: BMI 22.4
== END ==
LOC: OLS.SW300 11:05
PROVIDERS: PCP Family Medicine; Visit Provider Internal Medicine
DX: R41.82 Altered mental status, unspecified (principal)
CPT/HCPCS: 36415; 80048

== ENCOUNTER 2020-09-26 20:01 | Emergency (ER) | payer MEDICAID, SELFPAY ==
[2020-08-25 14:53] VITALS: BMI 23.4
[2020-09-26 20:02] VITALS: BP 123/87; PULSE 83; RESP 16; TEMP 36.9; O2SAT 99; BMI 22.4
[2020-09-26 20:23] VITALS: BP 129/65; PULSE 86; RESP 27; TEMP 36.9; O2SAT 97
--- NOTE | 2020-09-26 20:23 | EKG12_ITS ---
Test Reason : DYSRHYTHMIA Blood Pressure : / mmHG Vent. Rate : 083 BPM Atrial Rate : 083 BPM P-R Int : 214 ms QRS Dur : 070 ms QT Int : 370 ms P-R-T Axes : 057 -10 -42 degrees QTc Int : 434 ms Sinus rhythm with 1st degree A-V block Low voltage QRS (Limb Leads) Nonspecific ST abnormality Abnormal ECG Confirmed by NATY OVERTON, DARREN ([id number]), script editor MARKIE IBARRA ([id number]) on 09/28/2020 10:20:36 AM Referred By: ROBERT Confirmed By:DARREN ALFONSO MD
--- NOTE | 2020-09-26 20:26 | EX.ED.DYSGE1 ---
HPI History of Present Illness Chief Complaint: General Illness Informant: patient, EMS and other Limited: other Onset/Context/Timing Onset: Today Context: Gradual Onset Timing: Continuous Current Severity: Mild Maximum Severity: Mild Narrative Narrative: 65-year-old male from an area correction. History of mental retardation. History of liver cirrhosis with recent biliary stent placed. Patient sent in the correction due to concerns he may be dehydrated. Patient himself is a very limited informant due to his overall medical condition and his developmental delay. Prior similar symptoms: Yes Recent Illness/Hospitalization: Yes PFSH PFS Medical History Acute cholecystitis Acute kidney injury Arthritis Cerebellar atrophy Dysmetabolic syndrome Gait disturbance Hyperlipemia Mental retardation MRDD Seizure disorder Sepsis Home Medications lamotrigine 100 mg PO DAILY@0800 10/16/19 [History Last Taken 08/25/20 08:00] zonisamide 100 mg PO BID@0800,199910/16/19 [History Last Taken 08/25/20 08:00] divalproex 1,500 mg PO DAILY@199912/08/19 [History Last Taken 08/24/20 20:00] pbkagkehiodm-rydr-fjfbo acid 1 tab PO DAILY@0800 12/08/19 [History Last Taken 08/25/20 08:00] pyridoxine (vitamin B6) 100 mg PO DAILY@0800 12/08/19 [History Last Taken 08/25/20 08:00] sennosides 8.6 mg PO DAILY@0800,199912/08/19 [History Last Taken 08/25/20 08:00] tamsulosin 0.4 mg PO QHS 12/08/19 [History Last Taken 08/24/20 20:00] polyethylene glycol 3350 17 gm PO DAILY@0800 #0 12/12/19 [Rx Last Taken 08/25/20 08:00] calcium carbonate-vitamin D3 1 ea PO BID@0800,199901/05/20 [History Last Taken 08/25/20 08:00] Allergy/AdvReac Type Severity Reaction Status Date / Time camphor [From [employer] Vaporub] Allergy Other Verified 09/26/20 20:06 clobazam [From [employer]] Allergy Other Verified 09/26/20 20:06 eucalyptus Allergy Other Verified 09/26/20 20:06 [From [employer] Vaporub] eucalyptus oil Allergy Other Verified 09/26/20 20:06 [From [employer]apor[employer]] levetiracetam [From Keppra] Allergy Other Verified 09/26/20 20:06 menthol [From [employer]] Allergy Other Verified 09/26/20 20:06 petrolatum,white Allergy Other Verified 09/26/20 20:06 [From [employer]] turpentine oil Allergy Other Verified 09/26/20 20:06 [From [employer]apor[employer]] Surgical History history of jose m tube (~11/2019) S/P placement of VNS (vagus nerve stimulation) device Social History Smoking Status: Never smoker ROS ROS ED ROS Narrative Unable obtain due to patient's overall medical condition and mental status. Review of Systems ROS Unobtainable: due to mental status EXAM Physical Exam Narrative Exam Narrative: Older male. Vital signs are stable afebrile. H EENT exam dry mucous memories. Eyes are open. No trauma. Neck nontender no lymphadenopathy. Lungs clear to auscultation bilaterally. Heart regular rhythm no murmur. Abdomen soft nontender nondistended normal bowel sounds no peritoneal signs. Patient has a biliary drain in his right upper quadrant right flank area. Extremities are nontender. Is weak in both lower extremities. 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 Skin is yellow consistent with jaundice. Neurologically is awake. His eyes are open. He is unable to give me any history. He follows limited commands such as squeezing my hands. Const Vital Signs: 09/26/20 20:02 09/26/20 20:07 09/26/20 20:23 Temperature 98.4 F 98.4 F Temperature Source Temporal Temporal Pulse Rate 83 86 Respiratory Rate 16 27 H Respiratory Effort Normal Non-Labored Respiratory Pattern Normal Blood Pressure 123/87 H 129/65 H Blood Pressure Mean 99 86 Pulse Ox 99 97 Oxygen Delivery Method Room Air Room Air 09/26/20 21:23 09/26/20 21:38 09/26/20 22:00 Temperature 98.1 F 98.1 F Temperature Source Temporal Temporal Pulse Rate 81 83 Respiratory Rate 14 14 Respiratory Effort Respiratory Pattern Blood Pressure 125/84 H 120/81 H Blood Pressure Mean 97 94 Pulse Ox 95 98 Oxygen Delivery Method Room Air Room Air Positive well nourished and well developed General Appearance ED: well developed HEENT Reports dry mucous membranes Negative for trauma or tenderness Mouth ED: Yes dry mucous membranes Mouth: dry mucous membranes Eyes PERRL General Eye ED: Yes scleral icterus Neck no lymphadenopathy, supple and no JVD General: Negative for tenderness Chest Wall inspection of chest normal and palpation of chest normal Resp normal respiratory effort and clear to auscultation bilaterally Auscultation: diminished lung sounds Cardio regular rate, regular rhythm and no murmurs Rate: Negative for bradycardia or tachycardic GI normal to inspection, nondistended, normoactive bowel sounds, non-tender and non-distended GI Narrative: Nontender nondistended abdomen. Biliary drain on the right upper quadrant. Soft. No peritoneal signs. Inspection: Negative for abdominal distention Auscultation: normoactive bowel sounds; Negative for hyperactive bowel sounds Palpation: soft; Negative for tender, guarding or rebound tenderness present Extremity normal to inspection Extremity Narrative: Bilateral lower extremity weakness. Neuro Neuro Narrative: Decreased mental status. Unable to give any history. I spoke to the nurse at the [facility] and she stated that normally he really cannot give any history. Sensorium / Orientation: alert Psych Mood & Affect: depressed Skin no rashes or lesions noted General Skin Exam: jaundice MDM MDM MDM Narrative Medical decision making narrative: 65-year-old male reported liver cirrhosis and a biliary drain for cholecystitis. History of developmental delay. From a correction. They were concerned he was dehydrated and had decreased mental status and more lethargy and sent him in for evaluation. He is unable to give me any history. Clinically does look dehydrated. He is very jaundiced. He will receive IV fluids and undergo a septic work-up. Repeat exam at 10:15 PM patient seems more awake and alert after IV fluids. I spoke to the correction on his initial presentation and about discharging back to the nursing facility. I also spoke to the biomedical equipment tech Dr. Pepe Red. We don't have a specific cause of his mental status change. It might be slightly due to mild dehydration. He may have an early urinary tract infection to the white cells in his urine but given that there is no nitrates or bacteria we'll wait for the culture results. His IV will be left in place for IV fluids at the correction since he is taken very little p.o. and will be discharged back. Lab Data Attestation: I reviewed the patient's lab results. Lab results narrative: CBC shows a white count 1.6. Hemoglobin 10.9 which is consistent with his chronic anemia. Platelet count of 114,000. Electrolytes show a normal gap of 7. BUN was 31 creatinine of 1 consistent with dehydration. Liver enzymes unremarkable Except a total bilirubin of 12.5 and an AST of 73. Alk phos of 287. Ammonia level is less than 10. PT of 15 INR 1.3. Lactic acid normal 1.2. Portable 1 view chest x-ray shows a right rib fracture. No infiltrate. Read both of the radiologist and myself. Urinalysis shows 25-50 white cells but no bacteria no nitrates. Culture pending. As are blood cultures. Labs: Laboratory Results - last 24 hr 09/26/20 09/26/20 09/26/20 20:11 20:11 20:11 WBC 11.6 H RBC 3.35 L Hgb 11.9 L Hct 36.2 L MCV 108.1 H MCH 35.5 H MCHC 32.9 RDW Std Deviation 79.5 H RDW Coeff of Stephany 20.4 H Plt Count 114 L MPV 12.5 H Immature Gran % (Auto) 1.000 H Neut % (Auto) 62.7 Lymph % (Auto) 22.1 [place] % (Auto) 13.8 H Eos % (Auto) 0.1 Baso % (Auto) 0.3 Absolute Neuts (auto) 7.3 Absolute Lymphs (auto) 2.55 Nucleated RBC % 0 Differential Comment SCANNED Diff Path Review May foll Platelet Estimate SLT DEC Anisocytosis 3+ Macrocytosis RARE Target Cells 1+ PT INR APTT Sodium 142 Potassium 3.9 Chloride 105 Carbon Dioxide 30.0 Anion Gap 7 BUN 31 H Creatinine 1.01 Estim Creat Clear Calc 71.90 Est GFR (MDRD) Af Amer 96 Est GFR (MDRD) Non-Af 79 BUN/Creatinine Ratio 30.7 H Glucose 103 Lactic Acid Calcium 10.6 H Total Bilirubin 12.50 H AST 73 H ALT 39 Alkaline Phosphatase 287 H Ammonia < 10.0 L Total Protein 6.9 Albumin 2.4 L Globulin 4.5 H Albumin/Globulin Ratio 0.5 L Urine Color Urine Clarity Urine pH Ur Specific [place] Urine Protein Urine Glucose (UA) Urine Ketones Urine Occult Blood Urine Nitrite Urine Bilirubin Urine Urobilinogen Ur Leukocyte Esterase Urine RBC Urine WBC Ur Squamous Epith Cells Other Crystals Urine Bacteria Hyaline Casts Urine Mucus Valproic Acid 09/26/20 09/26/20 09/26/20 20:38 20:38 20:38 WBC RBC Hgb Hct MCV MCH MCHC RDW Std Deviation RDW Coeff of Stephany Plt Count MPV Immature Gran % (Auto) Neut % (Auto) Lymph % (Auto) [place] % (Auto) Eos % (Auto) Baso % (Auto) Absolute Neuts (auto) Absolute Lymphs (auto) Nucleated RBC % Differential Comment Diff Path Review Platelet Estimate Anisocytosis Macrocytosis Target Cells PT 15.7 H INR 1.3 APTT 36.7 H Sodium Potassium Chloride Carbon Dioxide Anion Gap BUN Creatinine Estim Creat Clear Calc Est GFR (MDRD) Af Amer Est GFR (MDRD) Non-Af BUN/Creatinine Ratio Glucose Lactic Acid 1.2 Calcium Total Bilirubin AST ALT Alkaline Phosphatase Ammonia Total Protein Albumin Globulin Albumin/Globulin Ratio Urine Color Urine Clarity Urine pH Ur Specific [place] Urine Protein Urine Glucose (UA) Urine Ketones Urine Occult Blood Urine Nitrite Urine Bilirubin Urine Urobilinogen Ur Leukocyte Esterase Urine RBC Urine WBC Ur Squamous Epith Cells Other Crystals Urine Bacteria Hyaline Casts Urine Mucus Valproic Acid 119 H 09/26/20 21:35 WBC RBC Hgb Hct MCV MCH MCHC RDW Std Deviation RDW Coeff of Stephany Plt Count MPV Immature Gran % (Auto) Neut % (Auto) Lymph % (Auto) [place] % (Auto) Eos % (Auto) Baso % (Auto) Absolute Neuts (auto) Absolute Lymphs (auto) Nucleated RBC % Differential Comment Diff Path Review Platelet Estimate Anisocytosis Macrocytosis Target Cells PT INR APTT Sodium Potassium Chloride Carbon Dioxide Anion Gap BUN Creatinine Estim Creat Clear Calc Est GFR (MDRD) Af Amer Est GFR (MDRD) Non-Af BUN/Creatinine Ratio Glucose Lactic Acid Calcium Total Bilirubin AST ALT Alkaline Phosphatase Ammonia Total Protein Albumin Globulin Albumin/Globulin Ratio Urine Color [place] Urine Clarity Cloudy Urine pH 6.5 Ur Specific [place] 1.020 Urine Protein 30 H Urine Glucose (UA) Normal Urine Ketones 50 H Urine Occult Blood 25 H Urine Nitrite Negative Urine Bilirubin 6 H Urine Urobilinogen 12 H Ur Leukocyte Esterase 100 H Urine RBC 0 SEEN Urine WBC 25-50 SEEN Ur Squamous Epith Cells 0-5 SEEN Other Crystals COMMENT Urine Bacteria 0 SEEN Hyaline Casts 0-5 SEEN Urine Mucus 4+ Valproic Acid Radiography Chest X-Ray - ED: 1 View, Read by ED Physician, Read by Radiologist, Heart, Lungs, Mediastinum, No Acute Disease, Chronic Changes and Right Rib Fx Diagnostic Testing: Radiology Impression Chest X-Ray 09/26/20 21:10 IMPRESSION: No acute pulmonary process Right posterior sixth rib fracture Electronically Signed: Dez Rawls MD at 21:26 EDT , Service support , Rhythm Strip Rate: 83 Ectopy: None EKG Initial EKG: Attestation: I personally reviewed and interpreted this EKG as follows: Interpretation: Sinus Rhythm, No Acute Injury Pattern, Sinus Bradycardia and Sinus Tachycardia Comments: Sinus rhythm first-degree AV block HI interval 214. No acute signs of [place]. ST depression in the 2 through V6. Prior EKG tracings: not available for review Discharge Plan Triage Chief Complaint: General Illness ED Provider: Rodríguez Kay Dx/Rx/DC Orders Clinical Impression: Mental retardation, Cholelithiasis with chronic cholecystitis, Acute alteration in mental status, Acute dehydration, Jaundice Instructions: ED ALOC, ED Dehydration (Adult) Prescriptions: No Action zonisamide 100 MG capsule 100 mg PO BID@799,1999 RF: 0 lamotrigine 100 MG tablet extended release 24hr 100 mg PO DAILY@0800 RF: 0 sennosides 8.6 MG tablet 8.6 mg PO DAILY@799,1999 RF: 0 divalproex 500 MG tablet,delayed release (DR/EC) 1,500 mg PO DAILY@1999 RF: 0 tamsulosin 0.4 MG capsule 0.4 mg PO QHS RF: 0 pyridoxine (vitamin B6) 100 MG tablet 100 mg PO DAILY@0800 RF: 0 rqrhuadlxzjt-nvfc-wywzy acid 1 EACH tablet 1 tab PO DAILY@0800 RF: 0 polyethylene glycol 3350 238 GM powder 17 gm PO DAILY@0800 Qty: 0 RF: 0 calcium carbonate-vitamin D3 1 EACH tablet 1 ea PO BID@799,1999 RF: 0 Primary Care Provider: Beth Ventura Referrals: Beth Ventura MD [Primary Care Provider] - Pepe Red MD [STAFF PHYSICIAN] - 1 Day Activity Restrictions/Additional Instructions: Urine and blood cultures are pending those results should be back in the next 24 hours. He did have white cells in his urine but no bacteria or nitrates will hold antibiotics till the culture returns. Patient was mildly dehydrated and will leave the IV in place for IV fluids at the correction. Call Dr. Red about those orders. Patient reevaluated by Dr. Red on Sunday. Disposition Disposition: Home, self care
[2020-09-26] MEDS: 0.9% Normal Saline 1,000 ML 999 ML IV (20:45)
[2020-09-26 20:47] LABS: Absolute Lymphocyte Count 2.55 X10^3/uL (0.83-4.51); Absolute Neutrophil Count 7.3 X10^3/uL (2.0-7.7); Basophil# 0.03 X10^3/uL; Basophil% 0.3 % (0-1); Eosinophil# 0.01 X10^3/uL; Eosinophils% 0.1 % (0-5); Hematocrit 36.2 % (40-54); Hemoglobin 11.9 g/dL (13.0-16.5); Lymphocyte # 2.55 X10^3/ul (0.83-4.51); Lymphocyte % 22.1 % (19-41); Mean Corp Hgb Conc 32.9 g/dL (32-36); Mean Corpuscular Hgb 35.5 pg (27.0-32.0); Mean Corpuscular Volume 108.1 fL (80-94); Mean Platelet Vol. 12.5 fl (6.2-12.0); Monocyte# 1.59 X10^3/uL; Monocyte% 13.8 % (0-10); NRBC Flagged by Analyzer 0 % (0-5); Neutrophil # 7.27 X10^3/uL (2.7-7.7); Neutrophil % 62.7 % (47-70); POSITIVE DIFFERENTIAL YES; POSITIVE MORPHOLOGY YES; Platelet Count 114 K/mm3 (150-450); RBC Distribution Width CV 20.4 % (11.6-14.6); RBC Distribution Width SD 79.5 fl (35.1-43.9); Red Blood Count 3.35 M/mm3 (4.6-6.2); White Blood Count 11.6 K/mm3 (4.4-11.0)
[2020-09-26 20:48] LABS: Differential Indicated SCAN CRITERIA MET
[2020-09-26 20:58] LABS: ALB/GLOB Ratio 0.5 RATIO (0.9-2.4); AST(SGOT) 73 U/L (15-37); Alanine Aminotransfer ALT/SGPT 39 U/L (16-61); Albumin, Serum 2.4 g/dL (3.2-5.0); Alkaline Phosphatase 287 U/L (45-117); Anion Gap 7 (5-15); BUN 31 mg/dL (7-18); BUN/Creat Ratio 30.7 RATIO (10-20); Calcium,Total 10.6 mg/dL (8.5-10.1); Chloride 105 mmol/L (98-107); Creatinine, Serum 1.01 mg/dL (0.70-1.30); EST Glomerular Filtration Rate 79 mL/min (>60); Est Glom Filt Rate - Afr Amer 96 mL/min (>60); Globulin 4.5 g/dL (2.2-4.2); Glucose 103 mg/dL (74-106); Potassium 3.9 mmol/L (3.5-5.1); Protein, Total 6.9 g/dL (6.4-8.2); Sodium Level 142 mmol/L (136-145)
[2020-09-26 21:01] LABS: International Normalized Ratio 1.3; Prothrombin Time (Protime)PT. 15.7 SECONDS (11.7-14.9)
[2020-09-26 21:02] LABS: Partial Thromboplast Time 36.7 Seconds (24.1-36.2)
--- NOTE | 2020-09-26 21:10 | RAD_ITS ---
STUDY: X-RAY CHEST REASON FOR EXAM: Male, 65 years old. Chest pain/pressure TECHNIQUE: 2 AP portable views COMPARISON: 12/08/2019 FINDINGS: EKG leads overlie the chest The lungs are clear and expanded. There is no demonstrated pleural abnormality. Normal size heart. Normal mediastinum and eliot. Normal visualized pulmonary arteries. Normal visualized aortic arch and descending thoracic aorta. Normal visualized thoracic spine. Acute right posterior sixth rib fracture There is no demonstrated abnormality of the visualized soft tissue structures of the upper abdomen. RAD/Chest 1 View (Portable) IMPRESSION: No acute pulmonary process Right posterior sixth rib fracture Electronically Signed: Dez Rawls MD at 21:26 EDT , Service support ,
[2020-09-26 21:14] LABS: Ammonia < 10.0 umol/L (11-32)
[2020-09-26 21:14] LABS: Valproic Acid (Depakene) Level 119 ug/mL (50-100)
[2020-09-26 21:15] LABS: Lactic Acid 1.2 mmol/L (0.4-1.9)
[2020-09-26 21:23] VITALS: BP 125/84; PULSE 81; RESP 14; O2SAT 95
[2020-09-26 21:25] LABS: Differential Comment SCANNED
[2020-09-26 21:26] LABS: Anisocytosis 3+; Macrocytosis RARE; Platelet Estimate SLT DEC (ADEQ); Target Cells 1+
[2020-09-26 21:38] VITALS: TEMP 36.7
[2020-09-26 21:40] LABS: Bacteria 0 SEEN /hpf (None Seen); Red Blood Cells-Urine 0 SEEN /hpf (0-5)
[2020-09-26 21:41] LABS: Color, Urine Amber (Yellow); Glucose, Dipstick Normal (Normal); Ketone-Dipstick 50 mg/dl (Negative); Leukocyte Esterase-Dipstick 100 /ul (Negative); Nitrite-Dipstick Negative (Negative); Occult Blood-Urine 25 /ul (Negative); Protein-Dipstick 30 mg/dl (Negative); Urine Clarity Cloudy (Clear); Urine Urobilinogen 12 mg/dl (Normal); Urine pH 6.5 (5.0 - 8.0)
[2020-09-26 21:42] LABS: Urine Bilirubin Dipstick 6 mg/dL (Negative)
[2020-09-26 21:47] LABS: Mucous, Urine 4+ /hpf (<or=2+)
[2020-09-26 21:48] LABS: Hyaline Cast 0-5 SEEN /lpf (0-5)
[2020-09-26 21:49] LABS: White Blood Cells 25-50 SEEN /hpf (0-5)
[2020-09-26 21:50] LABS: Squamous Epithelial Cells - UA 0-5 SEEN /hpf (0-5)
[2020-09-26 22:00] VITALS: BP 120/81; PULSE 83; RESP 14; TEMP 36.7; O2SAT 98
[2020-09-27 13:32] LABS: Pathologist Review Reviewed
--- NOTE | 2020-09-30 08:02 | ED.RN ---
THIS NURSE CONTACTED DR DANIELLE AND [facility] ABOUT THE POSITIVE BLOOD CULTURES. BOTH NOTIFIED THAT DR LANIER IS RECOMMENDING ANOTHER SET OF BLOOD CULTURES
== END 2020-09-26 22:59 | disposition home or self-care (01) ==
PROVIDERS: Emergency Provider Emergency Medicine; PCP Internal Medicine
DX: F79 Unspecified intellectual disabilities (principal); K80.10 Calculus of gallbladder with chronic cholecystitis without obstruction; R41.82 Altered mental status, unspecified; E86.0 Dehydration; R17 Unspecified jaundice; Z79.899 Other long term (current) drug therapy
CPT/HCPCS: 36415; 51702; 71045; 80048; 80053; 80164; 81001; 82140; 83605; 85025; 85610; 85730; 87040; 87077; 87086; 87088; 87186; 93005; 99285; J7030; A4216

== ENCOUNTER → 2020-09-28 | Outpatient (REF) | payer MEDICAID, SELFPAY ==
[2020-09-26 20:02] VITALS: BMI 22.4
[2020-09-28 08:33] LABS: Hemoglobin 10.9 g/dL (13.0-16.5); Mean Corp Hgb Conc 32.1 g/dL (32-36); Mean Corpuscular Hgb 35.5 pg (27.0-32.0); Mean Corpuscular Volume 110.7 fL (80-94); Mean Platelet Vol. 13.5 fl (6.2-12.0); POSITIVE COUNT YES; POSITIVE MORPHOLOGY YES; Platelet Count 76 K/mm3 (150-450); RBC Distribution Width CV 20.5 % (11.6-14.6); RBC Distribution Width SD 82.1 fl (35.1-43.9); Red Blood Count 3.07 M/mm3 (4.6-6.2); White Blood Count 9.9 K/mm3 (4.4-11.0)
[2020-09-28 08:35] LABS: Scan Indicated on CBC? Y/N YES- FLAGS NOTED
[2020-09-28 08:46] LABS: ALB/GLOB Ratio 0.5 RATIO (0.9-2.4); AST(SGOT) 75 U/L (15-37); Alanine Aminotransfer ALT/SGPT 33 U/L (16-61); Albumin, Serum 2.1 g/dL (3.2-5.0); Alkaline Phosphatase 328 U/L (45-117); Anion Gap 6 (5-15); BUN 39 mg/dL (7-18); BUN/Creat Ratio 39.4 RATIO (10-20); Calcium,Total 10.3 mg/dL (8.5-10.1); Chloride 108 mmol/L (98-107); Creatinine, Serum 0.99 mg/dL (0.70-1.30); EST Glomerular Filtration Rate 81 mL/min (>60); Est Glom Filt Rate - Afr Amer 98 mL/min (>60); Globulin 4.2 g/dL (2.2-4.2); Glucose 70 mg/dL (74-106); Magnesium 2.4 mg/dL (1.6-2.6); Potassium 3.8 mmol/L (3.5-5.1); Protein, Total 6.3 g/dL (6.4-8.2); Sodium Level 143 mmol/L (136-145)
[2020-09-28 09:12] LABS: Differential Comment SCANNED
[2020-09-28 09:17] LABS: Valproic Acid (Depakene) Level 83 ug/mL (50-100)
== END | disposition home or self-care (01) ==
LOC: OLS.SW300 05:00
PROVIDERS: PCP Internal Medicine; Visit Provider Internal Medicine
DX: D64.9 Anemia, unspecified (principal); E86.0 Dehydration; K83.1 Obstruction of bile duct
CPT/HCPCS: 36415; 80053; 80164; 82140; 83735; 85027

== ENCOUNTER → 2020-09-29 | Outpatient (REF) | payer MEDICAID, SELFPAY ==
[2020-09-26 20:02] VITALS: BMI 22.4
[2020-09-29 07:41] LABS: Hematocrit 30.3 % (40-54); Hemoglobin 9.7 g/dL (13.0-16.5); Mean Corpuscular Hgb 35.3 pg (27.0-32.0); Mean Corpuscular Volume 110.2 fL (80-94); Mean Platelet Vol. 12.4 fl (6.2-12.0); POSITIVE COUNT YES; POSITIVE MORPHOLOGY YES; Platelet Count 75 K/mm3 (150-450); RBC Distribution Width CV 19.5 % (11.6-14.6); RBC Distribution Width SD 77.4 fl (35.1-43.9); Red Blood Count 2.75 M/mm3 (4.6-6.2); White Blood Count 9.7 K/mm3 (4.4-11.0)
[2020-09-29 07:42] LABS: Scan Indicated on CBC? Y/N YES- FLAGS NOTED
[2020-09-29 07:55] LABS: ALB/GLOB Ratio 0.5 RATIO (0.9-2.4); AST(SGOT) 77 U/L (15-37); Alanine Aminotransfer ALT/SGPT 32 U/L (16-61); Albumin, Serum 1.9 g/dL (3.2-5.0); Alkaline Phosphatase 305 U/L (45-117); Anion Gap 5 (5-15); BUN 40 mg/dL (7-18); Calcium,Total 9.6 mg/dL (8.5-10.1); Chloride 109 mmol/L (98-107); Creatinine, Serum 0.95 mg/dL (0.70-1.30); EST Glomerular Filtration Rate 85 mL/min (>60); Est Glom Filt Rate - Afr Amer 102 mL/min (>60); Ferritin 1493 ng/mL (26-388); Globulin 3.9 g/dL (2.2-4.2); Glucose 86 mg/dL (74-106); Iron 68 ug/dL (65-175); Potassium 3.4 mmol/L (3.5-5.1); Protein, Total 5.8 g/dL (6.4-8.2); Sodium Level 143 mmol/L (136-145)
== END | disposition home or self-care (01) ==
LOC: OLS.SW300 05:00
PROVIDERS: PCP Internal Medicine; Visit Provider Internal Medicine
DX: N17.1 Acute kidney failure with acute cortical necrosis (principal); D64.9 Anemia, unspecified
CPT/HCPCS: 36415; 80053; 82140; 82728; 83540; 85027

== ENCOUNTER → 2020-10-01 | Outpatient (REF) | payer MEDICAID, SELFPAY ==
[2020-09-26 20:02] VITALS: BMI 22.4
[2020-10-01 09:25] LABS: ALB/GLOB Ratio 0.5 RATIO (0.9-2.4); AST(SGOT) 79 U/L (15-37); Alanine Aminotransfer ALT/SGPT 28 U/L (16-61); Albumin, Serum 1.7 g/dL (3.2-5.0); Alkaline Phosphatase 274 U/L (45-117); Anion Gap 8 (5-15); BUN 29 mg/dL (7-18); BUN/Creat Ratio 37.5 RATIO (10-20); Chloride 117 mmol/L (98-107); Creatinine, Serum 0.77 mg/dL (0.70-1.30); EST Glomerular Filtration Rate 107 mL/min (>60); Est Glom Filt Rate - Afr Amer 130 mL/min (>60); Globulin 3.6 g/dL (2.2-4.2); Glucose 40 mg/dL (74-106); Potassium 3.5 mmol/L (3.5-5.1); Protein, Total 5.3 g/dL (6.4-8.2); Sodium Level 151 mmol/L (136-145)
== END | disposition home or self-care (01) ==
LOC: OLS.SW300 05:00
PROVIDERS: PCP Internal Medicine; Visit Provider Internal Medicine
DX: R41.82 Altered mental status, unspecified (principal)
CPT/HCPCS: 36415; 80053; 87040

== ENCOUNTER → 2020-10-04 | Outpatient (REF) | payer MEDICAID, SELFPAY ==
[2020-09-26 20:02] VITALS: BMI 22.4
[2020-10-04 07:58] LABS: ALB/GLOB Ratio 0.4 RATIO (0.9-2.4); AST(SGOT) 66 U/L (15-37); Alanine Aminotransfer ALT/SGPT 28 U/L (16-61); Albumin, Serum 1.6 g/dL (3.2-5.0); Alkaline Phosphatase 249 U/L (45-117); Anion Gap 9 (5-15); BUN 13 mg/dL (7-18); BUN/Creat Ratio 20.7 RATIO (10-20); Calcium,Total 8.6 mg/dL (8.5-10.1); Chloride 103 mmol/L (98-107); Creatinine, Serum 0.63 mg/dL (0.70-1.30); EST Glomerular Filtration Rate 136 mL/min (>60); Est Glom Filt Rate - Afr Amer 165 mL/min (>60); Globulin 3.7 g/dL (2.2-4.2); Glucose 63 mg/dL (74-106); PSA,Total - Annual Screen 2.98 ng/mL (0.00-4.00); Potassium 3.6 mmol/L (3.5-5.1); Protein, Total 5.3 g/dL (6.4-8.2); Sodium Level 137 mmol/L (136-145)
== END | disposition home or self-care (01) ==
LOC: OLS.SW300 04:00
PROVIDERS: PCP Internal Medicine; Visit Provider Internal Medicine
DX: D64.9 Anemia, unspecified (principal); E86.0 Dehydration; R33.8 Other retention of urine; K81.9 Cholecystitis, unspecified
CPT/HCPCS: 36415; 80053; 84153; G0103

== ENCOUNTER → 2020-10-06 | Outpatient (REF) | payer MEDICAID, SELFPAY ==
[2020-09-26 20:02] VITALS: BMI 22.4
[2020-10-06 08:05] LABS: Hematocrit 30.4 % (40-54); Hemoglobin 9.6 g/dL (13.0-16.5); Mean Corp Hgb Conc 31.6 g/dL (32-36); Mean Corpuscular Hgb 35.4 pg (27.0-32.0); Mean Corpuscular Volume 112.2 fL (80-94); Mean Platelet Vol. 11.6 fl (6.2-12.0); POSITIVE COUNT YES; POSITIVE MORPHOLOGY YES; Platelet Count 91 K/mm3 (150-450); RBC Distribution Width CV 17.6 % (11.6-14.6); Red Blood Count 2.71 M/mm3 (4.6-6.2); White Blood Count 13.8 K/mm3 (4.4-11.0)
[2020-10-06 08:06] LABS: Scan Indicated on CBC? Y/N YES- FLAGS NOTED
[2020-10-06 08:24] LABS: ALB/GLOB Ratio 0.5 RATIO (0.9-2.4); AST(SGOT) 54 U/L (15-37); Alanine Aminotransfer ALT/SGPT 26 U/L (16-61); Albumin, Serum 1.7 g/dL (3.2-5.0); Alkaline Phosphatase 330 U/L (45-117); Anion Gap 7 (5-15); BUN 16 mg/dL (7-18); BUN/Creat Ratio 22.5 RATIO (10-20); Calcium,Total 8.9 mg/dL (8.5-10.1); Chloride 107 mmol/L (98-107); Creatinine, Serum 0.71 mg/dL (0.70-1.30); EST Glomerular Filtration Rate 118 mL/min (>60); Est Glom Filt Rate - Afr Amer 143 mL/min (>60); Ferritin 1534 ng/mL (26-388); Globulin 3.6 g/dL (2.2-4.2); Glucose 52 mg/dL (74-106); Iron 39 ug/dL (65-175); Potassium 3.5 mmol/L (3.5-5.1); Protein, Total 5.3 g/dL (6.4-8.2); Sodium Level 139 mmol/L (136-145)
== END | disposition home or self-care (01) ==
LOC: OLS.SW300 05:00
PROVIDERS: PCP Internal Medicine; Referring Provider Internal Medicine; Visit Provider Internal Medicine
DX: D64.9 Anemia, unspecified (principal); N17.1 Acute kidney failure with acute cortical necrosis
CPT/HCPCS: 36415; 80053; 82728; 83540; 85027

== ENCOUNTER → 2020-10-13 | Outpatient (REF) | payer MEDICAID, SELFPAY ==
[2020-09-26 20:02] VITALS: BMI 22.4
[2020-10-13 08:40] LABS: Hematocrit 33.6 % (40-54); Hemoglobin 10.6 g/dL (13.0-16.5); Mean Corp Hgb Conc 31.5 g/dL (32-36); Mean Corpuscular Hgb 35.5 pg (27.0-32.0); Mean Corpuscular Volume 112.4 fL (80-94); Mean Platelet Vol. 11.4 fl (6.2-12.0); Platelet Count 128 K/mm3 (150-450); RBC Distribution Width CV 15.5 % (11.6-14.6); RBC Distribution Width SD 64.3 fl (35.1-43.9); Red Blood Count 2.99 M/mm3 (4.6-6.2); White Blood Count 14.4 K/mm3 (4.4-11.0)
[2020-10-13 09:34] LABS: ALB/GLOB Ratio 0.4 RATIO (0.9-2.4); AST(SGOT) 76 U/L (15-37); Alanine Aminotransfer ALT/SGPT 33 U/L (16-61); Albumin, Serum 1.8 g/dL (3.2-5.0); Alkaline Phosphatase 531 U/L (45-117); Anion Gap 7 (5-15); BUN 24 mg/dL (7-18); BUN/Creat Ratio 34.8 RATIO (10-20); Calcium,Total 9.9 mg/dL (8.5-10.1); Chloride 103 mmol/L (98-107); Creatinine, Serum 0.69 mg/dL (0.70-1.30); EST Glomerular Filtration Rate 123 mL/min (>60); Est Glom Filt Rate - Afr Amer 148 mL/min (>60); Ferritin 2122 ng/mL (26-388); Globulin 4.3 g/dL (2.2-4.2); Glucose 71 mg/dL (74-106); Iron 42 ug/dL (65-175); Potassium 3.6 mmol/L (3.5-5.1); Protein, Total 6.1 g/dL (6.4-8.2); Sodium Level 137 mmol/L (136-145)
== END | disposition home or self-care (01) ==
LOC: OLS.SW300 05:00
PROVIDERS: PCP Internal Medicine; Referring Provider Internal Medicine; Visit Provider Internal Medicine
DX: D64.9 Anemia, unspecified (principal); N17.1 Acute kidney failure with acute cortical necrosis
CPT/HCPCS: 36415; 80053; 82728; 83540; 85027

== ENCOUNTER → 2020-10-14 | Outpatient (REF) | payer MEDICAID, SELFPAY ==
[2020-09-26 20:02] VITALS: BMI 22.4
[2020-10-20 12:17] VITALS: BMI 22.1
== END | disposition home or self-care (01) ==
LOC: OLS.SW300 05:00
PROVIDERS: PCP Internal Medicine; Visit Provider Internal Medicine
DX: N17.1 Acute kidney failure with acute cortical necrosis (principal); D64.9 Anemia, unspecified
CPT/HCPCS: 36415; 82140

== ENCOUNTER 2020-10-19 18:36 | Inpatient (IN) | payer MEDICAID, SELFPAY ==
[2020-10-19] VITALS (7 sets, daily range): BP systolic 92–106; BP diastolic 59–62; PULSE 69–77; RESP 16–18; TEMP 36.1–37; O2SAT 94–96; BMI 24.0
--- NOTE | 2020-10-19 20:06 | RAD_ITS ---
STUDY: X-RAY CHEST REASON FOR EXAM: Male, 65 years old. Leukocytosis TECHNIQUE: Single frontal view of the chest. COMPARISON: 09/26/2020 FINDINGS: Left cardiac device. Exam limited by patient positioning right apex is obscured. Left lateral and lower lung is not imaged. Partially visualized catheter overlies the right upper abdomen. Linear density at the right base. There is no demonstrated pleural abnormality. Normal size heart. Normal mediastinum and eliot. Normal visualized pulmonary arteries. Normal visualized aortic arch and descending thoracic aorta. Normal visualized thoracic spine. Normal visualized ribs, clavicles, and shoulders. There is no demonstrated abnormality of the visualized soft tissue structures of the upper abdomen. RAD/Chest 1 View (Portable) IMPRESSION: Significantly limited examination with exclusion of large portions of the left lung. Linear density at the right base may represent atelectasis, pneumonia as clinically indicated. Electronically Signed: Jayden Daniel MD at 20:37 EDT Tel , Service support ,
[2020-10-19 20:20] LABS: Absolute Lymphocyte Count 2.59 X10^3/uL (0.83-4.51); Absolute Neutrophil Count 9.6 X10^3/uL (2.0-7.7); Basophil# 0.14 X10^3/uL; Basophil% 0.9 % (0-1); Eosinophil# 0.25 X10^3/uL; Eosinophils% 1.7 % (0-5); Hematocrit 34.3 % (40-54); Hemoglobin 10.9 g/dL (13.0-16.5); Lymphocyte # 2.59 X10^3/ul (0.83-4.51); Lymphocyte % 17.5 % (19-41); Mean Corp Hgb Conc 31.8 g/dL (32-36); Mean Corpuscular Hgb 36.3 pg (27.0-32.0); Mean Corpuscular Volume 114.3 fL (80-94); Mean Platelet Vol. 10.2 fl (6.2-12.0); Monocyte# 2.08 X10^3/uL; NRBC Flagged by Analyzer 0 % (0-5); Neutrophil # 9.58 X10^3/uL (2.7-7.7); Neutrophil % 64.7 % (47-70); POSITIVE DIFFERENTIAL YES; Platelet Count 234 K/mm3 (150-450); RBC Distribution Width CV 14.4 % (11.6-14.6); RBC Distribution Width SD 60.9 fl (35.1-43.9); White Blood Count 14.8 K/mm3 (4.4-11.0)
[2020-10-19 20:21] LABS: Differential Indicated SCAN CRITERIA MET
--- NOTE | 2020-10-19 20:32 | EDS_ITS ---
HPI History of Present Illness Chief Complaint: Dental Informant: SNF Narrative Narrative: Patient is a 65-year-old male with history of MRDD ANO x1 at baseline with recent events hyperbilirubinemia and drain placement presenting with right- sided facial swelling. He is visiting from his nursing facility where it was noticed that his face seemed more swollen. He also notes he has been eating or drinking much lately. Patient has been jaundiced associated with his recent stent placement. No reported fevers. Patient is unable to provide any history but denies any complaints to me. He denies any pain when I ask him. No reports of any trauma or falls. [facility] Medical History Acute cholecystitis Acute kidney injury Arthritis Cardiac device in situ Cerebellar atrophy Dysmetabolic syndrome Gait disturbance Hyperlipemia Mental retardation MRDD Seizure disorder Sepsis Ventricular shunt in place Home Medications lamotrigine 100 mg PO DAILY@0800 10/16/19 [History Last Taken 08/25/20 08:00] zonisamide 100 mg PO BID@08,199910/16/19 [History Last Taken 08/25/20 08:00] divalproex 1,500 mg PO DAILY@199912/08/19 [History Last Taken 08/24/20 20:00] apjjnjwybbsh-wdoh-ijbmc acid 1 tab PO DAILY@0800 12/08/19 [History Last Taken 08/25/20 08:00] pyridoxine (vitamin B6) 100 mg PO DAILY@0800 12/08/19 [History Last Taken 08/25/20 08:00] sennosides 8.6 mg PO DAILY@799,199912/08/19 [History Last Taken 08/25/20 08:00] tamsulosin 0.4 mg PO QHS 12/08/19 [History Last Taken 08/24/20 20:00] polyethylene glycol 3350 17 gm PO DAILY@0800 #0 12/12/19 [Rx Last Taken 08/25/20 08:00] calcium carbonate-vitamin D3 1 ea PO BID@0800,199901/05/20 [History Last Taken 08/25/20 08:00] Allergy/AdvReac Type Severity Reaction Status Date / Time camphor [facility] Allergy Other Verified 10/19/20 18:37 clobazam [From Onfi] Allergy Other Verified 10/19/20 18:37 eucalyptus Allergy Other Verified 10/19/20 18:37 [From [facility]] eucalyptus oil Allergy Other Verified 10/19/20 18:37 [From [facility]apor[facility]] levetiracetam [From Keppra] Allergy Other Verified 10/19/20 18:37 menthol [From [facility]apor[facility]] Allergy Other Verified 10/19/20 18:37 petrolatum,white Allergy Other Verified 10/19/20 18:37 [From [facility]] turpentine oil Allergy Other Verified 10/19/20 18:37 [From Vicks Vaporub] Surgical History history of jose m tube (~11/2019) History of unilateral orchiectomy S/P placement of VNS (vagus nerve stimulation) device Social History housing: [facility] Smoking Status: Never smoker alcohol intake: never substance use type: does not use ROS ROS ED Review of Systems ROS Unobtainable: due to mental status EXAM Physical Exam Const Vital Signs: 10/19/20 18:37 10/19/20 18:41 10/19/20 20:41 Temperature 98.6 F 98.6 F 97.0 F L Temperature Source Oral Oral Temporal Pulse Rate 77 77 Respiratory Rate 16 16 Blood Pressure 92/62 92/62 Blood Pressure Mean 72 72 Pulse Ox 94 94 Oxygen Delivery Method Room Air Room Air Room Air 10/19/20 20:42 10/19/20 20:43 10/19/20 22:18 Temperature 97.0 F L 97.0 F L 97.1 F L Temperature Source Temporal Temporal Temporal Pulse Rate 69 Respiratory Rate 18 Blood Pressure 106/59 L Blood Pressure Mean 74 Pulse Ox 96 Oxygen Delivery Method Room Air 10/19/20 22:19 Temperature 97.1 F L Temperature Source Temporal Pulse Rate Respiratory Rate Blood Pressure Blood Pressure Mean Pulse Ox Oxygen Delivery Method Positive unkempt General Appearance ED: unkempt and NAD HEENT Reports TM's clear and moist mucous membranes HEENT Narrative: Poor dentition with multiple caries present, sublingual mucosa soft. No abscess noted. Patient does have asymmetric edema of his right face with tenderness over the parotid gland Tympanic Membrane ED: Yes TM's clear Eyes PERRL and EOMs intact bilaterally General Eye ED: Yes scleral icterus Neck no lymphadenopathy, supple and no JVD Chest Wall inspection of chest normal Resp normal respiratory effort Resp Narrative: Mildly diminished breath sounds. No crackles appreciated. Cardio regular rate, regular rhythm and no murmurs GI normal to inspection, nondistended, normoactive bowel sounds GI Narrative: Biliary drain in place Back/Spine no CVA tenderness Extremity normal to inspection General Extremety ED: Negative for edema or tenderness General Extremity: Negative for edema Neuro Neuro Narrative: Patient was slumped over and appears generally weak but does not appear to have any focal neurologic deficits. Sensorium / Orientation: alert and orientation impaired Psych Psych Narrative: Fatigued, cooperative Appearance: unkempt Skin no rashes or lesions noted Skin Narrative: No fluctuance or erythema noted of the right cheek General Skin Exam: jaundice MDM MDM MDM Narrative Medical decision making narrative: Patient is evaluated for poor oral intake over the past few days as well as swelling of his right face. He does seem to have some associated tenderness of the swelling but there is no obvious abscess. On oral exam he does have poor dentition but I do not see an obvious dental abscess. I am not concerned for Samuel angina, some lingual mucosa soft. Patient has a leukocytosis of 14.8. Chart review shows that this has been present for at least a week. He does not appear to currently be on antibiotics. Patient does appear to be in acute liver failure. His ammonia is no normal and his INR is normal. He is not having significant electrolyte abnormalities. His bilirubin is still elevated however it seems to be improving. I suspect his biliary drain is working. Urinalysis is concerning for UTI she does have positive nitrates and 100 leukoesterase with 0-5 white blood cells and 3+ bacteria. In addition, the chest x-ray shows a possible infiltrate of the right lower lobe. CT of the facial swelling/inflammation along the right parotid region masseter muscles with overlying skin thickness and subcu stranding is with thickening of the platysmas. Differential for this includes cellulitis versus infectious/inflammatory parotitis. Patient is started on an cefepime and vancomycin and blood cultures are obtained. He will be admitted for further evaluation of this facial swelling/infection as well as possible UTI and possible pneumonia. Patient does not have any O2 requirements and remains hemodynamically stable in the emergency room. Lab Data Labs: Laboratory Results - last 24 hr 10/19/20 10/19/20 10/19/20 20:05 20:05 20:05 WBC 14.8 H RBC 3.00 L Hgb 10.9 L Hct 34.3 L MCV 114.3 H MCH 36.3 H MCHC 31.8 L RDW Std Deviation 60.9 H RDW Coeff of Stephany 14.4 Plt Count 234 MPV 10.2 Immature Gran % (Auto) 1.200 H Neut % (Auto) 64.7 Lymph % (Auto) 17.5 L [place] % (Auto) 14.0 H Eos % (Auto) 1.7 Baso % (Auto) 0.9 Absolute Neuts (auto) 9.6 H Absolute Lymphs (auto) 2.59 Nucleated RBC % 0 Differential Comment SCANNED Diff Path Review May foll PT 15.3 H INR 1.3 APTT 36.0 Sodium Potassium Chloride Carbon Dioxide Anion Gap BUN Creatinine Estim Creat Clear Calc Est GFR (MDRD) Af Amer Est GFR (MDRD) Non-Af BUN/Creatinine Ratio Glucose Lactic Acid Calcium Phosphorus Magnesium Total Bilirubin 7.00 H Direct Bilirubin 6.03 H AST 72 H ALT 31 Alkaline Phosphatase 435 H Ammonia Total Protein 6.1 L Albumin 1.9 L Globulin 4.2 Urine Color Urine Clarity Urine pH Ur Specific [place] Urine Protein Urine Glucose (UA) Urine Ketones Urine Occult Blood Urine Nitrite Urine Bilirubin Urine Urobilinogen Ur Leukocyte Esterase Urine RBC Urine WBC Ur Squamous Epith Cells Urine Bacteria Urine Mucus 10/19/20 10/19/20 10/19/20 20:05 20:05 20:05 WBC RBC Hgb Hct MCV MCH MCHC RDW Std Deviation RDW Coeff of Stephany Plt Count MPV Immature Gran % (Auto) Neut % (Auto) Lymph % (Auto) [place] % (Auto) Eos % (Auto) Baso % (Auto) Absolute Neuts (auto) Absolute Lymphs (auto) Nucleated RBC % Differential Comment Diff Path Review PT INR APTT Sodium 138 Potassium 4.2 Chloride 105 Carbon Dioxide 29.0 Anion Gap 4 L BUN 23 H Creatinine 0.73 Estim Creat Clear Calc 92.25 Est GFR (MDRD) Af Amer 139 Est GFR (MDRD) Non-Af 115 BUN/Creatinine Ratio 31.6 H Glucose 101 Lactic Acid 0.7 Calcium 9.2 Phosphorus Magnesium Total Bilirubin Direct Bilirubin AST ALT Alkaline Phosphatase Ammonia < 10.0 L Total Protein Albumin Globulin Urine Color Urine Clarity Urine pH Ur Specific [place] Urine Protein Urine Glucose (UA) Urine Ketones Urine Occult Blood Urine Nitrite Urine Bilirubin Urine Urobilinogen Ur Leukocyte Esterase Urine RBC Urine WBC Ur Squamous Epith Cells Urine Bacteria Urine Mucus 10/19/20 10/19/20 20:35 Unknown WBC RBC Hgb Hct MCV MCH MCHC RDW Std Deviation RDW Coeff of Stephany Plt Count MPV Immature Gran % (Auto) Neut % (Auto) Lymph % (Auto) [place] % (Auto) Eos % (Auto) Baso % (Auto) Absolute Neuts (auto) Absolute Lymphs (auto) Nucleated RBC % Differential Comment Diff Path Review PT INR APTT Sodium Potassium Chloride Carbon Dioxide Anion Gap BUN Creatinine Estim Creat Clear Calc Est GFR (MDRD) Af Amer Est GFR (MDRD) Non-Af BUN/Creatinine Ratio Glucose Lactic Acid Calcium Phosphorus 3.3 Magnesium 2.3 Total Bilirubin Direct Bilirubin AST ALT Alkaline Phosphatase Ammonia Total Protein Albumin Globulin Urine Color [place] Urine Clarity Sl. Cloudy Urine pH 5.0 Ur Specific [place] 1.020 Urine Protein 30 H Urine Glucose (UA) Normal Urine Ketones 5 H Urine Occult Blood 10 H Urine Nitrite Positive H Urine Bilirubin 6 H Urine Urobilinogen 12 H Ur Leukocyte Esterase 100 H Urine RBC 0 SEEN Urine WBC 0-5 SEEN Ur Squamous Epith Cells 0-5 SEEN Urine Bacteria 3+ Urine Mucus 0 SEEN Radiography Chest X-Ray - ED: 1 View, Read by ED Physician, Read by Radiologist and Right Infiltrate (Right infiltrate versus atelectasis.) Diagnostic Testing: Radiology Impression Chest X-Ray 10/19/20 20:06 IMPRESSION: Significantly limited examination with exclusion of large portions of the left lung. Linear density at the right base may represent atelectasis, pneumonia as clinically indicated. Electronically Signed: Jayden Daniel MD at 20:37 EDT Tel , Service support , Facial/Sinus 10/19/20 22:10 IMPRESSION: Swelling/inflammation involving the right parotid region and masseter muscles with overlying skin thickening and subcutaneous stranding, as well as thickening of the platysma. Findings may indicate cellulitis or infectious/inflammatory parotitis. Individualized dose optimization techniques were used for this CT. at 2243 Reported and signed by: Grant Borja MD Electronically Signed: Grant Borja MD at 22:42 EDT Tel , Service support , Discharge Plan Dx/Rx/DC Orders Clinical Impression: UTI (urinary tract infection), Hyperbilirubinemia, Jaundice, Facial cellulitis, Leukocytosis Disposition Disposition: Acute Care Hospital [facility] Discharge Date/Time: 10/20/20 01:12
[2020-10-19 20:33] LABS: International Normalized Ratio 1.3; Prothrombin Time (Protime)PT. 15.3 SECONDS (11.7-14.9)
[2020-10-19] MEDS: 0.9% Normal Saline 1,000 ML 250 ML IV (20:40)
[2020-10-19 20:41] LABS: Mucous, Urine 0 SEEN /hpf (<or=2+); Red Blood Cells-Urine 0 SEEN /hpf (0-5)
[2020-10-19 20:43] LABS: Anion Gap 4 (5-15); BUN 23 mg/dL (7-18); BUN/Creat Ratio 31.6 RATIO (10-20); Calcium,Total 9.2 mg/dL (8.5-10.1); Chloride 105 mmol/L (98-107); Creatinine, Serum 0.73 mg/dL (0.70-1.30); EST Glomerular Filtration Rate 115 mL/min (>60); Est Glom Filt Rate - Afr Amer 139 mL/min (>60); Estimated Creatinine Clearance 92.25 ml/min; Glucose 101 mg/dL (74-106); Potassium 4.2 mmol/L (3.5-5.1); Sodium Level 138 mmol/L (136-145)
[2020-10-19 20:46] LABS: Lactic Acid 0.7 mmol/L (0.4-1.9)
[2020-10-19 20:48] LABS: Ammonia < 10.0 umol/L (11-32); Differential Comment SCANNED
[2020-10-19 20:50] LABS: Color, Urine Amber (Yellow); Glucose, Dipstick Normal (Normal); Ketone-Dipstick 5 mg/dl (Negative); Leukocyte Esterase-Dipstick 100 /ul (Negative); Nitrite-Dipstick Positive (Negative); Occult Blood-Urine 10 /ul (Negative); Protein-Dipstick 30 mg/dl (Negative); Urine Bilirubin Dipstick 6 mg/dL (Negative); Urine Clarity Sl. Cloudy (Clear); Urine Urobilinogen 12 mg/dl (Normal)
[2020-10-19 20:59] LABS: AST(SGOT) 72 U/L (15-37); Alanine Aminotransfer ALT/SGPT 31 U/L (16-61); Albumin, Serum 1.9 g/dL (3.2-5.0); Alkaline Phosphatase 435 U/L (45-117); Bilirubin, Direct 6.03 mg/dL (0.00-0.30); Globulin 4.2 g/dL (2.2-4.2); Protein, Total 6.1 g/dL (6.4-8.2)
[2020-10-19 21:05] LABS: Bacteria 3+ /hpf (None Seen); Squamous Epithelial Cells - UA 0-5 SEEN /hpf (0-5); White Blood Cells 0-5 SEEN /hpf (0-5)
[2020-10-19] MEDS: Ziprasidone IM 20 MG/ML VIAL 10 MG IM (21:35)
--- NOTE | 2020-10-19 22:10 | CT_ITS ---
EXAM: CT MAXILLOFACIAL WITH INTRAVENOUS CONTRAST : 1955 CLINICAL INDICATION: right facial swelling TECHNIQUE: Helically acquired images were obtained of the face with intravenous contrast. This CT exam was performed using one or more of the following dose reduction techniques: automated exposure control, adjustment of the mA and/or kV according to patient size, and/or use of iterative reconstruction technique. This report was created using [employer] report generation technology. CONTRAST: 100 ML OF ISOVUE 300 COMPARISON: None. FINDINGS: BONES/JOINTS: Unremarkable. No displaced fracture. No discrete lytic or blastic abnormalities. SOFT TISSUES: Swelling/inflammation involving the right parotid region and masseter muscles with overlying skin thickening and subcutaneous stranding, as well as thickening of the platysma. No air within the soft tissues. No discrete fluid collections, no evidence of abscess. ORBITS: Unremarkable. Both globes are unremarkable. Extraocular muscles are normal. Retrobulbar fat appears unremarkable. SINUSES: Unremarkable as visualized. Clear. MASTOID AIR CELLS: Unremarkable as visualized. Clear. DENTAL: No acute findings. No periodontal osseous erosion. CT/Sinus/Facial Bone WITH Contras IMPRESSION: Swelling/inflammation involving the right parotid region and masseter muscles with overlying skin thickening and subcutaneous stranding, as well as thickening of the platysma. Findings may indicate cellulitis or infectious/inflammatory parotitis. Individualized dose optimization techniques were used for this CT. at 2243 Reported and signed by: Grant Borja MD Electronically Signed: Grant Borja MD at 22:42 EDT Tel , Service support ,
--- NOTE | 2020-10-19 22:39 | ED.RN ---
left a message for permission for treatment via [facility].
[2020-10-20] VITALS (8 sets, daily range): BP systolic 94–115; BP diastolic 45–85; PULSE 60–84; RESP 16–18; TEMP 36.2–38.8; O2SAT 94–98; BMI 21.4; BMI 22.1
--- NOTE | 2020-10-20 00:24 | PCM.HP.STD ---
HPI - General General Date of Admission: 10/20/20 Date of Service: 10/20/20 Chief Complaint: Facial swelling, redness, poor oral intake. HPI Narrative The patient is a 65 y/o M w/ PMHx: MRDD w/ Cerebellar Atrophy, Seizure disorder, HLD, Recently noted hyperbilirubinemia w/ eventual placement of cholecystostomy tube with slowly improving levels with recent 08/26/20 transfer from [facility] secondary to notable liver function/bilirubin abnormalities at that time who now re-presents to the [facility] ED on 10/20/20 with history of onset right sided jaw/face swelling and decreased oral intake over the last 48-72 hours, progressively worsening with no specifically related fever but difficult exam given alert and oriented only to his name. Patient cannot tell that his right face is uncomfortable but with palpation does wince and grimace. Work-up in the ED included T 97, heart rate 69 BP 106/59, respiratory rate 18, 96% on room air, CBC with WC 14.8, hemoglobin 10.9, platelet 234 with left shift, coags with PT 15.3, INR 1.3, PTT 36, CMP with BUN/creatinine 23/0.73, lactic acid 0.7, total bilirubin 7, direct bilirubin 6.03, AST/ALT 72/31, alk phos 435, ammonia less than 10, urinalysis with specific gravity 1.020, urine protein 30, urine ketone 5, urine occult blood 10, urine nitrite positive, urine bilirubin 6, UA urine urobilinogen's 12, leukocyte Estrace 100, urine WC 0-5 with 3+ urine bacteria with urine culture pending per ED, chest x-ray with presence of a left cardiac device and difficult evaluation secondary to patient positioning with linear density at the right base, CT maxillofacial with IV contrast with noted swelling/inflammation involving the right parotid region and masseter muscles with overlying skin thickening and subcutaneous stranding as well as thickening of the platysma's concerning for cellulitis and/or infectious/inflammatory parotitis. Patient prior urine and microbiology with noted MRSA and Klebsiella therefore based on patient sensitivities with discussion with ED physician patient administered vancomycin and cefepime regimen. [facility] Medical History (Updated 10/20/20 @ 01:[address] Mya Velez MD) Acute cholecystitis Acute kidney injury Arthritis Cardiac device in situ Cerebellar atrophy Dysmetabolic syndrome Gait disturbance Hyperlipemia Mental retardation MRDD Seizure disorder Sepsis Ventricular shunt in place Home Medications lamotrigine 100 mg PO DAILY@0800 10/16/19 [History Last Taken 08/25/20 08:00] zonisamide 100 mg PO BID@0800,199910/16/19 [History Last Taken 08/25/20 08:00] divalproex 1,500 mg PO DAILY@199912/08/19 [History Last Taken 08/24/20 20:00] dxeammnlirky-dgks-kmbbj acid 1 tab PO DAILY@0800 12/08/19 [History Last Taken 08/25/20 08:00] pyridoxine (vitamin B6) 100 mg PO DAILY@0800 12/08/19 [History Last Taken 08/25/20 08:00] sennosides 8.6 mg PO DAILY@0800,199912/08/19 [History Last Taken 08/25/20 08:00] tamsulosin 0.4 mg PO QHS 12/08/19 [History Last Taken 08/24/20 20:00] polyethylene glycol 3350 17 gm PO DAILY@0800 #0 12/12/19 [Rx Last Taken 08/25/20 08:00] calcium carbonate-vitamin D3 1 ea PO BID@0800,199901/05/20 [History Last Taken 08/25/20 08:00] Allergy/AdvReac Type Severity Reaction Status Date / Time camphor [From Vicks Vaporub] Allergy Other Verified 10/19/20 18:37 clobazam [From Onfi] Allergy Other Verified 10/19/20 18:37 eucalyptus Allergy Other Verified 10/19/20 18:37 [From Vicks Vaporub] eucalyptus oil Allergy Other Verified 10/19/20 18:37 [From Vicks Vaporub] levetiracetam [From Keppra] Allergy Other Verified 10/19/20 18:37 menthol [From Vicks Vaporub] Allergy Other Verified 10/19/20 18:37 petrolatum,white Allergy Other Verified 10/19/20 18:37 [From Vicks Vaporub] turpentine oil Allergy Other Verified 10/19/20 18:37 [From Vicks Vaporub] unable to obtain (Patient is non-verbal, unknown maternal and paternal family history.) Surgical History (Updated 10/20/20 @ 01:[address] Mya Velez MD) history of jose m tube (~11/2019) History of unilateral orchiectomy S/P placement of VNS (vagus nerve stimulation) device Social History (Updated 10/20/20 @ 01:[address] Mya Velez MD) housing: intermediate Smoking Status: Never smoker alcohol intake: never substance use type: does not use ROS Review of Systems ROS Unobtainable: due to mental condition Vital Signs Vital Signs Vital Signs: 10/19/20 18:37 10/19/20 18:41 10/19/20 20:41 Temperature 98.6 F 98.6 F 97.0 F L Temperature Source Oral Oral Temporal Pulse Rate 77 77 Respiratory Rate 16 16 Blood Pressure 92/62 92/62 Blood Pressure Mean 72 72 Pulse Ox 94 94 Oxygen Delivery Method Room Air Room Air Room Air 10/19/20 20:42 10/19/20 20:43 10/19/20 22:18 Temperature 97.0 F L 97.0 F L 97.1 F L Temperature Source Temporal Temporal Temporal Pulse Rate 69 Respiratory Rate 18 Blood Pressure 106/59 L Blood Pressure Mean 74 Pulse Ox 96 Oxygen Delivery Method Room Air 10/19/20 22:19 Temperature 97.1 F L Temperature Source Temporal Pulse Rate Respiratory Rate Blood Pressure Blood Pressure Mean Pulse Ox Oxygen Delivery Method Weight Weight: 148 lb 9.465 oz Body Mass Index (BMI) 24.0 Physical Exam Narrative Physical Examination: General: Awakens to stimuli, intermittently alert, oriented to self only which is chronic, seated upright in the ED bed, fatigued, head chronically rolling to the right, visibly jaundiced. Skin: Jaundiced color, + scleral icterus, normal turgor, no cyanosis, occasional staged ecchymoses to extremities. HEENT: AT/NC, EOM appear intact but difficult assessment as MRDD with difficulty with some commands, PERRLA, dry MM, right jaw/parotid region significant swelling, tender to palpation, no obvious erythema over this region and it is not fluctuant, no carotid bruits or JVD noted. Lungs: Mildly diminished breath sounds, poor effort, no obvious evidence of any distress, no rales, ronchi or wheezing. Heart: Regular rate and rhythm; no gallop, rub audible. Abdomen: Soft, thin habitus, mild discomfort to right upper quadrant palpation, cholecystostomy tube in place with appropriate output, nondistended, distant hypoactive hypoactive bowel sounds, no HSM. Extremities: No cyanosis, clubbing, or edema. Neurological: Awakens to stimuli, intermittently alert, oriented to self only which is chronic, seated upright in the ED bed, fatigued, head chronically rolling to the right, visibly jaundiced, cognitive function likely near baseline intact; pupils equally reactive to light and accommodation, cranial nerves grossly normal, moving all 4 extremities, strength severely globally decreased. Psychiatric: Affect appears flat, fatigued, no acute evidence of depressive or anxiety feelings. Results Lab / Micro Data Result Diagrams: 10/19/20 20:05 10/19/20 20:05 Labs: Laboratory Results - last 24 hr 10/19/20 10/19/20 10/19/20 20:05 20:05 20:05 WBC 14.8 H RBC 3.00 L Hgb 10.9 L Hct 34.3 L MCV 114.3 H MCH 36.3 H MCHC 31.8 L RDW Std Deviation 60.9 H RDW Coeff of Stephany 14.4 Plt Count 234 MPV 10.2 Immature Gran % (Auto) 1.200 H Neut % (Auto) 64.7 Lymph % (Auto) 17.5 L Cowley % (Auto) 14.0 H Eos % (Auto) 1.7 Baso % (Auto) 0.9 Absolute Neuts (auto) 9.6 H Absolute Lymphs (auto) 2.59 Nucleated RBC % 0 Differential Comment SCANNED Diff Path Review August foll PT 15.3 H INR 1.3 APTT 36.0 Sodium Potassium Chloride Carbon Dioxide Anion Gap BUN Creatinine Estim Creat Clear Calc Est GFR (MDRD) Af Amer Est GFR (MDRD) Non-Af BUN/Creatinine Ratio Glucose Lactic Acid Calcium Total Bilirubin 7.00 H Direct Bilirubin 6.03 H AST 72 H ALT 31 Alkaline Phosphatase 435 H Ammonia Total Protein 6.1 L Albumin 1.9 L Globulin 4.2 Urine Color Urine Clarity Urine pH Ur Specific Butterfield Urine Protein Urine Glucose (UA) Urine Ketones Urine Occult Blood Urine Nitrite Urine Bilirubin Urine Urobilinogen Ur Leukocyte Esterase Urine RBC Urine WBC Ur Squamous Epith Cells Urine Bacteria Urine Mucus 10/19/20 10/19/20 10/19/20 20:05 20:05 20:05 WBC RBC Hgb Hct MCV MCH MCHC RDW Std Deviation RDW Coeff of Stephany Plt Count MPV Immature Gran % (Auto) Neut % (Auto) Lymph % (Auto) Cowley % (Auto) Eos % (Auto) Baso % (Auto) Absolute Neuts (auto) Absolute Lymphs (auto) Nucleated RBC % Differential Comment Diff Path Review PT INR APTT Sodium 138 Potassium 4.2 Chloride 105 Carbon Dioxide 29.0 Anion Gap 4 L BUN 23 H Creatinine 0.73 Estim Creat Clear Calc 92.25 Est GFR (MDRD) Af Amer 139 Est GFR (MDRD) Non-Af 115 BUN/Creatinine Ratio 31.6 H Glucose 101 Lactic Acid 0.7 Calcium 9.2 Total Bilirubin Direct Bilirubin AST ALT Alkaline Phosphatase Ammonia < 10.0 L Total Protein Albumin Globulin Urine Color Urine Clarity Urine pH Ur Specific Butterfield Urine Protein Urine Glucose (UA) Urine Ketones Urine Occult Blood Urine Nitrite Urine Bilirubin Urine Urobilinogen Ur Leukocyte Esterase Urine RBC Urine WBC Ur Squamous Epith Cells Urine Bacteria Urine Mucus 10/19/20 20:35 WBC RBC Hgb Hct MCV MCH MCHC RDW Std Deviation RDW Coeff of Stephany Plt Count MPV Immature Gran % (Auto) Neut % (Auto) Lymph % (Auto) Cowley % (Auto) Eos % (Auto) Baso % (Auto) Absolute Neuts (auto) Absolute Lymphs (auto) Nucleated RBC % Differential Comment Diff Path Review PT INR APTT Sodium Potassium Chloride Carbon Dioxide Anion Gap BUN Creatinine Estim Creat Clear Calc Est GFR (MDRD) Af Amer Est GFR (MDRD) Non-Af BUN/Creatinine Ratio Glucose Lactic Acid Calcium Total Bilirubin Direct Bilirubin AST ALT Alkaline Phosphatase Ammonia Total Protein Albumin Globulin Urine Color Cierra Urine Clarity Sl. Cloudy Urine pH 5.0 Ur Specific Butterfield 1.020 Urine Protein 30 H Urine Glucose (UA) Normal Urine Ketones 5 H Urine Occult Blood 10 H Urine Nitrite Positive H Urine Bilirubin 6 H Urine Urobilinogen 12 H Ur Leukocyte Esterase 100 H Urine RBC 0 SEEN Urine WBC 0-5 SEEN Ur Squamous Epith Cells 0-5 SEEN Urine Bacteria 3+ Urine Mucus 0 SEEN Radiology Impression Chest X-Ray 10/19/20 20:06 IMPRESSION: Significantly limited examination with exclusion of large portions of the left lung. Linear density at the right base may represent atelectasis, pneumonia as clinically indicated. Electronically Signed: Jayden Daniel MD at 20:37 EDT Tel , Service support , Facial/Sinus 10/19/20 22:10 IMPRESSION: Swelling/inflammation involving the right parotid region and masseter muscles with overlying skin thickening and subcutaneous stranding, as well as thickening of the platysma. Findings may indicate cellulitis or infectious/inflammatory parotitis. Individualized dose optimization techniques were used for this CT. at 2243 Reported and signed by: Grant Borja MD Electronically Signed: Grant Borja MD at 22:42 EDT Tel , Service support , Assessment & Plan Assessment/Plan (1) Facial cellulitis: (2) UTI (urinary tract infection): QUALIFIERS: Urinary tract infection type: site unspecified Hematuria presence: without hematuria Qualified Code(s): N39.0 - Urinary tract infection, site not specified PLAN: The patient is a 65 y/o M w/ PMHx: MRDD w/ Cerebellar Atrophy, Seizure disorder, HLD, Recently noted hyperbilirubinemia w/ eventual placement of cholecystostomy tube with slowly improving levels with recent 08/26/20 transfer from [facility] secondary to notable liver function/bilirubin abnormalities at that time who now re-presents to the [facility] ED on 10/20/20 with history of onset right sided jaw/face swelling and decreased oral intake over the last 48-72 hours, progressively worsening with no specifically related fever but difficult exam given alert and oriented only to his name. 1. Acute facial cellulitis versus more suspected acute parotitis: We will admit to medical surgical floor, maintain on IV vancomycin and cefepime given suspected parotitis and concurrent UTI as noted #2, monitor for appropriate and safe oral intake and allow diet if this is the case with soft mechanical/small bites given limited intake recently noted at skilled facility secondary to discomfort with oral intake, maintain on IV fluids, as needed pain regimen if necessary, if not improving may consider ENT evaluation. 2. Acute Urinary Tract Infection: UA upon ED evaluation mildly remarkable, pending UCx, continue IVFs, monitor I/Os, continue IV cefepime given #1 concurrently w/ transition as able pending sensitivities and speciation. 3. Abnormal LFTs, hyperbilirubinemia with recent cholecystitis status post cholecystostomy tube: Patient with cholecystostomy tube in place, appears appropriate output in bag, levels have been trending slowly down, will continue to trend CMP. 4. MRDD with cerebral atrophy with associated seizure disorder: We will continue patient home lamotrigine, Depakote, zonisamide. Complicates presentation is nonverbal, fall precautions, positional changes, therapy consultation as well as case management consultation. 5. Hyperlipidemia: Not on regimen especially given recent complication with hyperbilirubinemia status post cholecystostomy tube. 6. BPH: We will continue patient home Flomax regimen. 7. DVT prophylaxis: SCDs, defer any chemoprophylaxis given liver function abnormalities. 8. CODE STATUS: Full per facility paperwork. Charges/Coding Visit Charges Inpatient E&M: 52691 Init Hosp L3
[2020-10-20] MEDS: 0.9% Normal Saline 1,000 ML 250 ML IV (00:26)
[2020-10-20 00:50] LABS: Magnesium 2.3 mg/dL (1.6-2.6); Phosphorus 3.3 mg/dL (2.5-4.9)
--- NOTE | 2020-10-20 02:04 | PCM.RX.CS ---
Consult Pharmacy has been consulted to manage selected antiobiotic: Vancomycin Type of Consult: New start Suspected Infection: Skin/Soft tissue Prior Doses of Antibiotics Received/Current Regimen: Medications Vancomycin HCl 1,250 mg/ (Sodium Chloride) 275 mls @ 167 mls/hr IV Q12H CAESAR Vancomycin HCl 1,750 mg/ (Sodium Chloride) 535 mls @ 250 mls/hr IV X1 ONE Stop: 10/20/20 02:20 Last Admin: 10/20/20 01:09 Dose: 250 mls/hr Labs: Sodium 138 mmol/L (136-145) 10/19/20 20:05 Potassium 4.2 mmol/L (3.5-5.1) 10/19/20 20:05 Chloride 105 mmol/L (98-107) 10/19/20 20:05 Carbon Dioxide 29.0 mmol/L (21.0-32.0) 10/19/20 20:05 Anion Gap 4 (5-15) L 10/19/20 20:05 BUN 23 mg/dL (7-18) H 10/19/20 20:05 Creatinine 0.73 mg/dL (0.70-1.30) 10/19/20 20:05 Est GFR (MDRD) Af Amer 139 mL/min (>60) 10/19/20 20:05 Est GFR (MDRD) Non-Af 115 mL/min (>60) 10/19/20 20:05 BUN/Creatinine Ratio 31.6 RATIO (10-20) H 10/19/20 20:05 Glucose 101 mg/dL (74-106) 10/19/20 20:05 Weight used for dosin.4 kg Estimated Creatinine Clearance: 92 Goal Trough: 15-20 mcg/mL Pharmacy Plan for Drug Dosing: Pharmacy Service will continue to monitor and adjust dosing as required. Follow-Up Labs: Trough Vancomycin Labs to be done on [date and time ordered]: 10/21/20 @1230
[2020-10-20] MEDS: 0.9% Normal Saline 1,000 ML 125 ML IV ×3 (05:03→20:38)
--- NOTE | 2020-10-20 05:07 | NURSING ---
[facility] states that pt had a COVID vaccine on 05/12/20 but they didn't know what kind.
--- NOTE | 2020-10-20 05:10 | NURSING ---
PER [facility], PT HAS SCHEDULED ERCP ON 10/27 AT THE [facility]. THEY BELIEVE THE PLAN IS TO REMOVE THE BILIARY DRAIN.
[2020-10-20 06:45] LABS: Absolute Lymphocyte Count 2.92 X10^3/uL (0.83-4.51); Basophil# 0.13 X10^3/uL; Eosinophil# 0.44 X10^3/uL; Eosinophils% 3.3 % (0-5); Hematocrit 31.3 % (40-54); Hemoglobin 9.4 g/dL (13.0-16.5); Lymphocyte # 2.92 X10^3/ul (0.83-4.51); Lymphocyte % 21.8 % (19-41); Mean Corpuscular Hgb 35.2 pg (27.0-32.0); Mean Corpuscular Volume 117.2 fL (80-94); Monocyte# 1.72 X10^3/uL; Monocyte% 12.9 % (0-10); NRBC Flagged by Analyzer 0 % (0-5); Neutrophil # 7.99 X10^3/uL (2.7-7.7); Neutrophil % 59.7 % (47-70); POSITIVE DIFFERENTIAL YES; Platelet Count 233 K/mm3 (150-450); RBC Distribution Width CV 14.3 % (11.6-14.6); RBC Distribution Width SD 62.1 fl (35.1-43.9); Red Blood Count 2.67 M/mm3 (4.6-6.2); White Blood Count 13.4 K/mm3 (4.4-11.0)
[2020-10-20 06:47] LABS: Differential Indicated SCAN CRITERIA MET
[2020-10-20 07:09] LABS: ALB/GLOB Ratio 0.4 RATIO (0.9-2.4); AST(SGOT) 60 U/L (15-37); Alanine Aminotransfer ALT/SGPT 25 U/L (16-61); Albumin, Serum 1.7 g/dL (3.2-5.0); Alkaline Phosphatase 363 U/L (45-117); Anion Gap 4 (5-15); BUN 21 mg/dL (7-18); BUN/Creat Ratio 37.4 RATIO (10-20); Calcium,Total 8.6 mg/dL (8.5-10.1); Chloride 109 mmol/L (98-107); Creatinine, Serum 0.56 mg/dL (0.70-1.30); EST Glomerular Filtration Rate 155 mL/min (>60); Est Glom Filt Rate - Afr Amer 188 mL/min (>60); Estimated Creatinine Clearance 124.22 ml/min; Globulin 3.8 g/dL (2.2-4.2); Glucose 78 mg/dL (74-106); Potassium 3.7 mmol/L (3.5-5.1); Protein, Total 5.5 g/dL (6.4-8.2); Sodium Level 141 mmol/L (136-145)
--- NOTE | 2020-10-20 08:57 | NURSING ---
[facility] called and additional information received. Pi is a total feed, does not eat well usually takes health shakes and juices. He is non ambulatory , hpyer transfer meds to be crushed and placed in applesauce or pudding.
--- NOTE | 2020-10-20 09:10 | CASEMGMT ---
Addendum entered by Gabrielle Shultz 10/20/20 10:09: SW received call from Gabrielle at [facility] stating she spoke with her team this morning. Apparently Ramesh Backderf is pt's guardian but Mandy Larose was covering for Ramesh while he was gone. Gabrielle states they have no guardianship paperwork, no HCPOA or No LW on file for pt. Gabrielle states pt is able to return when medically cleared. ANI attempted to call both numbers listed for Ramesh Backderf. The first number ([phone]) which is number for [facility] in [place]. SW attempted to leave message for [employer], voicemail is full. SW attempted to call second number listed for Ramesh ([phone]) and that number kept ringing with no answer, no voicemail. ANI then placed a call to Mandy Larose who is listed as Guardian on paperwork from [facility]. The first number ([phone]) just rang busy. The second number ([phone]) is for [facility] in [place]. The extension listed for Mandy ([phone]) is non working extension. SW able to leave message for [facility] requesting call back to confirm pt's guardian, number for guardian, and if guardianship paperwork is able to be faxed to [facility]. SW working on confirming who is pt's guardian and to confirm discharge plans. SW waiting for call back from [facility]. Original Note: Social Work Note SW reviewed chart, pt is listed as being from [facility]. Pt also has Legal Guardian. Per demographics Ramesh Backderf is listed as Legal Guardian but paperwork from [facility] states that Mandy Reneat is Legal Guardian. ANI placed a call to Gabrielle at [facility] and left message for clarification on Guardian and asked for Guardianship paperwork, LW and HCPOA to be faxed to [facility]. Gabrielle Shultz FORMULA CHECKER, LOADING UNIT OPERATOR SEATING
[2020-10-20] MEDS: Lidocaine 5% Patch 1 PATCH TOPICAL (09:11)
[2020-10-20] MEDS: Famotidine 20 MG Tablet PO ×2 (09:12→20:25)
[2020-10-20] MEDS: Polyethylene Glycol 3350 17 GM PACKET PO (09:12)
[2020-10-20] MEDS: ZONISAMIDE 100 MG CAPSULE PO ×2 (09:12→20:40)
[2020-10-20] MEDS: Potassium Chloride Oral Tablet 20 MEQ PO (09:12)
[2020-10-20] MEDS: Multivitamins,Therapeutic Tablet 1 TABLET PO (09:13)
[2020-10-20] MEDS: lamoTRIgine 100 MG Tablet PO (09:13)
[2020-10-20] MEDS: Pyridoxine HCl 100 MG Tablet PO (09:13)
[2020-10-20] MEDS: Senna Tablet 1 TABLET PO ×2 (09:13→20:24)
--- NOTE | 2020-10-20 10:18 | CASEMGMT ---
Social Work Note Per fireproof door assembler questions, pt has completed HCPOA and LW and provided documents to [facility]. SW reviewed chart, no documents on file. SW spoke [facility] regarding documents, they have no copies of documents either. Gabrielle Shultz MSW, SUPERVISORY AIDE
--- NOTE | 2020-10-20 11:47 | CASEMGMT ---
Social Work Note SW received guardianship document from [facility] ([employer]) stating [facility] is pt's guardian. ANI still waiting for call back from [employer] to confirm who is pt's legal guardian at this time. ANI placed Guardianship paperwork on pt's chart. Gabrielle Shultz STILL WORKER HELPER, CPR AMBULANCE DRIVER
--- NOTE | 2020-10-20 12:15 | EX.NTREPO ---
Medical Nutrition Therapy - History Nutrition Services has been consulted to:: Manage nutrient details of diet order Current diet/nutrition support order:: Regular- soft & bite sized, thin liquid- total feed. - Anthropometric Measurements Height:: 5 ft 8 in Weight:: 65.9 kg Body Mass Index (BMI):: 22.1 - Relevant Labs Relevant Labs:: WBC 13.4 K/mm3 (4.4-11.0) H 10/20/20 06:34 RBC 2.67 M/mm3 (4.6-6.2) L 10/20/20 06:34 Hgb 9.4 g/dL (13.0-16.5) L 10/20/20 06:34 Hct 31.3 % (40-54) L 10/20/20 06:34 MCV 117.2 fL (80-94) H 10/20/20 06:34 MCH 35.2 pg (27.0-32.0) H 10/20/20 06:34 MCHC 30.0 g/dL (32-36) L D 10/20/20 06:34 RDW Std Deviation 62.1 fl (35.1-43.9) H 10/20/20 06:34 Immature Gran % (Auto) 1.300 % (0.0-0.9) H 10/20/20 06:34 Lymph % (Auto) 17.5 % (19-41) L 10/19/20 20:05 [place] % (Auto) 12.9 % (0-10) H 10/20/20 06:34 Absolute Neuts (auto) 8.0 X10^3/uL (2.0-7.7) H 10/20/20 06:34 PT 15.3 SECONDS (11.7-14.9) H 10/19/20 20:05 Chloride 109 mmol/L (98-107) H 10/20/20 06:34 Anion Gap 4 (5-15) L 10/20/20 06:34 BUN 21 mg/dL (7-18) H 10/20/20 06:34 Creatinine 0.56 mg/dL (0.70-1.30) L 10/20/20 06:34 BUN/Creatinine Ratio 37.4 RATIO (10-20) H 10/20/20 06:34 Total Bilirubin 6.20 mg/dL (0.20-1.00) H 10/20/20 06:34 Direct Bilirubin 6.03 mg/dL (0.00-0.30) H 10/19/20 20:05 AST 60 U/L (15-37) H 10/20/20 06:34 Alkaline Phosphatase 363 U/L (45-117) H 10/20/20 06:34 Ammonia < 10.0 umol/L (11-32) L 10/19/20 20:05 Total Protein 5.5 g/dL (6.4-8.2) L 10/20/20 06:34 Albumin 1.7 g/dL (3.2-5.0) L 10/20/20 06:34 Albumin/Globulin Ratio 0.4 RATIO (0.9-2.4) L 10/20/20 06:34 - Assessment Food and Nutrient Intake: Pt from [facility]. A&O x 1- sleeping soundly at this time. Jaundiced. CBW 145.3 lbs- wt hx per EMR 172.8 lbs 08/25/20, 188.3 lbs 12/09/19. Wt loss 16% x 1 month (severe). Per INOCENCIO Flores [facility] called- pt is a total feed, does not eat well, usually takes health shakes and juices. Per pt hard chart faxed docs from [facility] indicate pt on regular diet & taking House supplement 2x/day; CLINICAL ABSTRACTOR following pt for dysphagia w/ last assessment 10/13; no wt hx from [facility]. Pt non-ambulatory. Upon visual observation pt w/ severe temporal scooping/depression, moderate clavicle bone protrusion, moderate orbital region hollow look/depression. - Nutrition Diagnosis: Clinical Problem Acute Disease or Injury Related Malnutrition Clinical Problem - Etiology: Severe malnutrition in the context of acute illness/injury related to inadequate oral intake Clinical Problem - Signs/Symptoms: as evidenced by [facility] reports pt total feed w/ poor intake consuming main energy through shakes & juices, unintentional wt loss 27.5 lbs/16% x 1 month, and upon visual observation severe temporal scooping/depression, moderate clavicle bone protrusion, moderate orbital region hollow look/depression. Status: Active Problem - Protein Calorie Malnutrition Evidence of Malnutrition Exists: Yes Severe Protein Calorie Malnutrition:: Acute Illness/Injury - Nutrition Intervention Nutrition Prescription: 4179-4721 calories (RMR x 1.2). 60-70 grams protein (1g/kg). 9159-0685 ml fluid (25 ml/kg) - Food / Nutrient Delivery Interventions Summary of nutrition intervention:: Provide oral nutrition supplement Nutrition support ordered as / adjusted to:: Will provide Ensure Enlive 240 ml & Ensure Clear 120 ml w/ pt meals. Continue regular diet. Recommend consideration of enteral nutrition support as pt present with severe malnutrition and likely will not be able to meet estimated nutrition needs via PO diet. - MNT Monitoring Active Nutrition Patient: Yes Nutrition Status: Requires Follow Up 3-5 Days
[2020-10-20 13:31] LABS: Pathologist Review Reviewed
[2020-10-20 13:38] LABS: Pathologist Review Reviewed
--- NOTE | 2020-10-20 13:44 | CASEMGMT ---
Addendum entered by Gabrielle Shultz 10/20/20 15:17: AIN still waiting for call back from Lucila with [employer] to confirm pt's Legal Guardian and who to call for decisions at this time. ANI placed a call to number listed for Mandy [phone] and there is an option for Emergency Medical Decisions and that option is option 1. ANI wrote number and gave to sand blaster in the event a medical emergency happens before this worker figures out pt's legal guardian. Addendum entered by Gabrielle Shultz 10/20/20 14:49: ANI did place a call to Gabrielle at [facility] and updated he that per [facility], Ramesh Espinoza has retired, SW waiting for confirmation on pt's legal Guardian at this time. Original Note: Social Work Note SW hasn't received a call yet back from [facility] regarding pt. ANI reviewed chart. Lucila ([phone]) is a logistics supervisor with [employer] and has been involved with pt before. ANI placed a call to Lucila. Lucila states Ramesh Espinoza is no longer pt's guardian as he has retired. Lucila states she thinks pt's guardian is now Mandy Larose but she thinks she is on vacation this week. Lucila states she is currently in a training, will be out soon and will look at pt's chart. Lucila to give this worker a call. Gabrielle Shultz CORPORATE RELATIONS MANAGER, TREATMENT COUNSELOR
--- NOTE | 2020-10-20 14:04 | NURSING ---
INOCENCIO De La Torre and Dr Shi aware of postive blood cultures results.
--- NOTE | 2020-10-20 15:41 | CASEMGMT ---
Social Work Note ANI received a call from Lucila at [facility]. Lucila confirms that Mandy Larose is pt's current Legal Guardian. Her number is [phone] ext: [phone]. Lucila states Mandy is on vacation this week though and just to call Lucila for any medical decisions needing to be made for pt. ([phone]). Lucila states she will be reaching out to [facility] to confirm they can take pt back. ANI updated Lucila that this worker also confirmed that with [facility] and they are able to accept pt back. Lucila states she also knows [facility] was working on a DNR for pt but it wasn't filled out correctly so pt is still full code at this time. ANI asked Lucila that if DNR gets signed to fax to [facility] (SW provided fax number). ANI placed a call to Registration and asked for pt's demographics to be updated with correct Legal Guardian - Mandy Larose ([phone] ext: [phone]). ANI updated Charge Nurse to call Lucila first if any medical decisions need to be made. ANI provided Charge Nurse with Lucila's direct number. SW to continue to follow. Plan: Return to [facility] once medically cleared Gabrielle Shultz FIBERGLASS CONTAINER WINDING OPERATOR, MIMEOGRAPH OPERATOR
--- NOTE | 2020-10-20 15:55 | PCM.CONS.GEN ---
Assessment & Plan Assessment/Plan (1) Facial cellulitis: PLAN: Concern for parotitis, will treat with vanc/unasyn, recommend ENT eval. 09/26/20 bcx with MRSA. Ucx with GNR here but UA wbc only 0-5. Will follow, thank you, d/w Dr. Torre HPI Consult Data Date of Consult: 10/20/20 HPI Narrative HPI Narrative: MAXIMO SHAVER, is a 65 M with MRDD, unable to provide history, admitted with several days progressive R face pain, swelling, redness, warmth. No fever. Had (+) single bcx with MRSA in ED 09/26/20, not clear if this was treated. Admitted here on vanc/cefepime. ROS unobtainable due to mental status. Some pain in face. [facility] Medical History Acute cholecystitis Acute kidney injury Arthritis Cardiac device in situ Cerebellar atrophy Dysmetabolic syndrome Gait disturbance Hyperlipemia Mental retardation MRDD Seizure disorder Sepsis Ventricular shunt in place Home Medications lamotrigine 100 mg PO DAILY@0800 10/16/19 [History Last Taken 08/25/20 08:00] zonisamide 100 mg PO BID@08,199910/16/19 [History Last Taken 08/25/20 08:00] divalproex 1,500 mg PO DAILY@199912/08/19 [History Last Taken 08/24/20 20:00] sennosides 8.6 mg PO DAILY@0800,199912/08/19 [History Last Taken 08/25/20 08:00] tamsulosin 0.4 mg PO QHS 12/08/19 [History Last Taken 08/24/20 20:00] polyethylene glycol 3350 17 gm PO DAILY@0800 #0 12/12/19 [Rx Last Taken 08/25/20 08:00] calcium carbonate-vitamin D3 1 ea PO BID@0800,199901/05/20 [History Last Taken 08/25/20 08:00] aluminm,mag wyv-pfdymku-mebilx 30 ml PO/SL Q4H PRN 10/20/20 [History Last Taken Unknown] bisacodyl 10 mg OH DAILY PRN 10/20/20 [History Last Taken Unknown] guaifenesin 200 mg PO Q4H PRN 10/20/20 [History Last Taken Unknown] lactulose 30 ml PO QHS PRN 10/20/20 [History Last Taken Unknown] lidocaine [Lidoderm] 1 patch TOPICAL DAILY 10/20/20 [History Last Taken Unknown] mirtazapine [Remeron] 7.5 mg PO DAILY 10/20/20 [History Last Taken Unknown] yfgcygyxdujo-cuks-cqhww acid [Certavite-Antioxidant] 1 tab PO DAILY 10/20/20 [History Last Taken Unknown] potassium chloride 20 meq PO DAILY 10/20/20 [History Last Taken Unknown] pyridoxine (vitamin B6) 100 mg PO DAILY 10/20/20 [History Last Taken Unknown] Allergy/AdvReac Type Severity Reaction Status Date / Time camphor [From Vicks Vaporub] Allergy Other Verified 10/19/20 18:37 clobazam [From Onfi] Allergy Other Verified 10/19/20 18:37 eucalyptus Allergy Other Verified 10/19/20 18:37 [From Vicks Vaporub] eucalyptus oil Allergy Other Verified 10/19/20 18:37 [From Vicks Vaporub] levetiracetam [From Keppra] Allergy Other Verified 10/19/20 18:37 menthol [From Vicks Vaporub] Allergy Other Verified 10/19/20 18:37 petrolatum,white Allergy Other Verified 10/19/20 18:37 [From Vicks Vaporub] turpentine oil Allergy Other Verified 10/19/20 18:37 [From Vicks Vaporub] Surgical History history of jose m tube (~11/2019) History of unilateral orchiectomy S/P placement of VNS (vagus nerve stimulation) device Social History housing: halfway Smoking Status: Never smoker alcohol intake: never substance use type: does not use Physical Exam Const Constitutional Narrative: ill appearing Exam Limitations: behavioral limitations HEENT HEENT Narrative: R face pain redness swelling over parotid Eyes PERRL and EOMs intact bilaterally Neck supple and No nodes Resp normal air movement and clear to auscultation bilaterally Cardio regular rate and regular rhythm GI normal to inspection, nondistended, normoactive bowel sounds Extremity no clubbing, cyanosis or edema Skin Skin Narrative: no other rash Lab / Micro Data Result Diagrams: 10/20/20 06:34 10/20/20 06:34 Labs: Laboratory Results - last 24 hr 10/19/20 10/19/20 10/19/20 20:05 20:05 20:05 WBC 14.8 H RBC 3.00 L Hgb 10.9 L Hct 34.3 L MCV 114.3 H MCH 36.3 H MCHC 31.8 L RDW Std Deviation 60.9 H RDW Coeff of Stephany 14.4 Plt Count 234 MPV 10.2 Immature Gran % (Auto) 1.200 H Neut % (Auto) 64.7 Lymph % (Auto) 17.5 L [place] % (Auto) 14.0 H Eos % (Auto) 1.7 Baso % (Auto) 0.9 Absolute Neuts (auto) 9.6 H Absolute Lymphs (auto) 2.59 Nucleated RBC % 0 Differential Comment SCANNED Diff Path Review Reviewed PT 15.3 H INR 1.3 APTT 36.0 Sodium Potassium Chloride Carbon Dioxide Anion Gap BUN Creatinine Estim Creat Clear Calc Est GFR (MDRD) Af Amer Est GFR (MDRD) Non-Af BUN/Creatinine Ratio Glucose Lactic Acid Calcium Phosphorus Magnesium Total Bilirubin 7.00 H Direct Bilirubin 6.03 H AST 72 H ALT 31 Alkaline Phosphatase 435 H Ammonia Total Protein 6.1 L Albumin 1.9 L Globulin 4.2 Albumin/Globulin Ratio Urine Color Urine Clarity Urine pH Ur Specific [place] Urine Protein Urine Glucose (UA) Urine Ketones Urine Occult Blood Urine Nitrite Urine Bilirubin Urine Urobilinogen Ur Leukocyte Esterase Urine RBC Urine WBC Ur Squamous Epith Cells Urine Bacteria Urine Mucus 10/19/20 10/19/20 10/19/20 20:05 20:05 20:05 WBC RBC Hgb Hct MCV MCH MCHC RDW Std Deviation RDW Coeff of Stephany Plt Count MPV Immature Gran % (Auto) Neut % (Auto) Lymph % (Auto) [place] % (Auto) Eos % (Auto) Baso % (Auto) Absolute Neuts (auto) Absolute Lymphs (auto) Nucleated RBC % Differential Comment Diff Path Review PT INR APTT Sodium 138 Potassium 4.2 Chloride 105 Carbon Dioxide 29.0 Anion Gap 4 L BUN 23 H Creatinine 0.73 Estim Creat Clear Calc 92.25 Est GFR (MDRD) Af Amer 139 Est GFR (MDRD) Non-Af 115 BUN/Creatinine Ratio 31.6 H Glucose 101 Lactic Acid 0.7 Calcium 9.2 Phosphorus Magnesium Total Bilirubin Direct Bilirubin AST ALT Alkaline Phosphatase Ammonia < 10.0 L Total Protein Albumin Globulin Albumin/Globulin Ratio Urine Color Urine Clarity Urine pH Ur Specific [place] Urine Protein Urine Glucose (UA) Urine Ketones Urine Occult Blood Urine Nitrite Urine Bilirubin Urine Urobilinogen Ur Leukocyte Esterase Urine RBC Urine WBC Ur Squamous Epith Cells Urine Bacteria Urine Mucus 10/19/20 10/19/20 10/20/20 20:35 Unknown 06:34 WBC 13.4 H RBC 2.67 L Hgb 9.4 L Hct 31.3 L MCV 117.2 H MCH 35.2 H MCHC 30.0 L D RDW Std Deviation 62.1 H RDW Coeff of Stephany 14.3 Plt Count 233 MPV 10.0 Immature Gran % (Auto) 1.300 H Neut % (Auto) 59.7 Lymph % (Auto) 21.8 [place] % (Auto) 12.9 H Eos % (Auto) 3.3 Baso % (Auto) 1.0 Absolute Neuts (auto) 8.0 H Absolute Lymphs (auto) 2.92 Nucleated RBC % 0 Differential Comment Diff Path Review Reviewed PT INR APTT Sodium Potassium Chloride Carbon Dioxide Anion Gap BUN Creatinine Estim Creat Clear Calc Est GFR (MDRD) Af Amer Est GFR (MDRD) Non-Af BUN/Creatinine Ratio Glucose Lactic Acid Calcium Phosphorus 3.3 Magnesium 2.3 Total Bilirubin Direct Bilirubin AST ALT Alkaline Phosphatase Ammonia Total Protein Albumin Globulin Albumin/Globulin Ratio Urine Color [place] Urine Clarity Sl. Cloudy Urine pH 5.0 Ur Specific [place] 1.020 Urine Protein 30 H Urine Glucose (UA) Normal Urine Ketones 5 H Urine Occult Blood 10 H Urine Nitrite Positive H Urine Bilirubin 6 H Urine Urobilinogen 12 H Ur Leukocyte Esterase 100 H Urine RBC 0 SEEN Urine WBC 0-5 SEEN Ur Squamous Epith Cells 0-5 SEEN Urine Bacteria 3+ Urine Mucus 0 SEEN 10/20/20 06:34 WBC RBC Hgb Hct MCV MCH MCHC RDW Std Deviation RDW Coeff of Stephany Plt Count MPV Immature Gran % (Auto) Neut % (Auto) Lymph % (Auto) [place] % (Auto) Eos % (Auto) Baso % (Auto) Absolute Neuts (auto) Absolute Lymphs (auto) Nucleated RBC % Differential Comment Diff Path Review PT INR APTT Sodium 141 Potassium 3.7 Chloride 109 H Carbon Dioxide 28.0 Anion Gap 4 L BUN 21 H Creatinine 0.56 L Estim Creat Clear Calc 124.22 Est GFR (MDRD) Af Amer 188 Est GFR (MDRD) Non-Af 155 BUN/Creatinine Ratio 37.4 H Glucose 78 Lactic Acid Calcium 8.6 Phosphorus Magnesium Total Bilirubin 6.20 H Direct Bilirubin AST 60 H ALT 25 Alkaline Phosphatase 363 H Ammonia Total Protein 5.5 L Albumin 1.7 L Globulin 3.8 Albumin/Globulin Ratio 0.4 L Urine Color Urine Clarity Urine pH Ur Specific [place] Urine Protein Urine Glucose (UA) Urine Ketones Urine Occult Blood Urine Nitrite Urine Bilirubin Urine Urobilinogen Ur Leukocyte Esterase Urine RBC Urine WBC Ur Squamous Epith Cells Urine Bacteria Urine Mucus Micro: Microbiology 10/19/20 20:05 Blood Culture - Preliminary Blood Culture (Wb) - Anticubital Right 10/19/20 20:40 Blood Culture - Preliminary Blood Culture (Wb) - Anticubital Left 10/19/20 20:35 Urine Culture - Preliminary Urine, Catheterized GNR lactose geriatric nurse practitioner Radiology Impression Chest X-Ray 10/19/20 20:06 IMPRESSION: Significantly limited examination with exclusion of large portions of the left lung. Linear density at the right base may represent atelectasis, pneumonia as clinically indicated. Electronically Signed: Jayden Daniel MD at 20:37 EDT Tel , Service support , Facial/Sinus 10/19/20 22:10 IMPRESSION: Swelling/inflammation involving the right parotid region and masseter muscles with overlying skin thickening and subcutaneous stranding, as well as thickening of the platysma. Findings may indicate cellulitis or infectious/inflammatory parotitis. Individualized dose optimization techniques were used for this CT. at 4883 Reported and signed by: Grant Borja MD Electronically Signed: Grant Borja MD at 22:42 EDT Tel , Service support ,
--- NOTE | 2020-10-20 17:56 | PN_ITS ---
Progress Note Asked to see the patient at the request of Dr. Torre for facial cellulitis and parotitis The patient is a 65-year-old white male who was admitted to the hospital for facial cellulitis and parotitis on 10/19/2020. He was initially placed on vancomycin and cefepime. He has now been switched to Unasyn and vancomycin. His white blood cell count has come down slightly since admission. PE: Patient is awake alert and not very cooperative. Scalp and skull are normal. Tympanic membrane external auditory canals are within normal limits. The right parotid is indurated and enlarged. There is no fluctuance. The overlying skin is erythematous. Neck is supple without adenopathy. Mouth and oropharynx reveals poor dentition but moist mucous membranes. Nasal exam reveals no purulence CT of the neck reveals soft tissue stranding with a enlarged inflamed parotid. There is no sialolithiasis. There is also no fluid collections to suggest absce ss. A: parotitis facial cellulitis P: Continue IV antibiotics per ID recommendations There is no indication for surgery.
--- NOTE | 2020-10-20 17:56 | PCM.HOSP.N ---
Hospitalist Note Patient was seen and examined briefly today, I talked with infectious diseases who I had consult on the patient, they recommended that ENT see the patient and I put in a consult for Dr. Robison this afternoon to discuss the case with him. Patient will remain on his current antibiotics per infectious diseases.
[2020-10-20] MEDS: Divalproex Sodium 250 MG Tablet 1500 MG PO (20:24)
[2020-10-20] MEDS: Tamsulosin HCl 0.4 MG Capsule PO (20:25)
[2020-10-20] MEDS: Mirtazapine 15 MG Tablet 7.5 MG PO (20:38)
[2020-10-20] MEDS: Acetaminophen 325 MG Tablet 650 MG PO (20:51)
[2020-10-21 02:04] VITALS: BP 108/56; PULSE 65; RESP 18; TEMP 37.7; O2SAT 93
[2020-10-21 05:23] VITALS: TEMP 37.1
[2020-10-21] MEDS: 0.9% Normal Saline 1,000 ML 125 ML IV ×3 (06:39→17:30)
[2020-10-21 08:11] VITALS: O2SAT 90
[2020-10-21] MEDS: Pyridoxine HCl 100 MG Tablet PO ×2 (08:55→08:57)
[2020-10-21] MEDS: Multivitamins,Therapeutic Tablet 1 TABLET PO (08:55)
[2020-10-21] MEDS: Potassium Chloride Oral Tablet 20 MEQ PO (08:55)
[2020-10-21] MEDS: Famotidine 20 MG Tablet PO ×2 (08:55→21:02)
[2020-10-21] MEDS: Senna Tablet 1 TABLET PO ×2 (08:55→20:53)
[2020-10-21] MEDS: lamoTRIgine 100 MG Tablet PO (08:55)
[2020-10-21] MEDS: Polyethylene Glycol 3350 17 GM PACKET PO (08:55)
[2020-10-21] MEDS: Lidocaine 5% Patch 1 PATCH TOPICAL (08:55)
[2020-10-21 09:06] VITALS: BP 120/55; PULSE 66; RESP 18; TEMP 37.2; O2SAT 94
--- NOTE | 2020-10-21 09:46 | ECHOCS_ITS ---
Reason For Study: MURMUR Procedure This was a 2D Doppler, Color Flow transthoracic echocardiogram. The study was technically limited. Pt is nonverbal/nonmobile and favors laying to right side. Pectus excavatum. unable to follow holding breath command. Exam performed portable in patient room. Left Ventricle Normal LV size. The estimated ejection fraction is 65 %. No evidence for diastolic dysfunction. No regional wall motion abnormalities noted. Right Ventricle Normal RV size. Normal systolic function. Atria Normal left atrium. Normal right atrium. No doppler evidence for ASD. Mitral Valve There is no mitral valve stenosis. No mitral valve insufficiency. Tricuspid Valve There is no tricuspid stenosis. Trivial tricuspid valve insufficiency. Pulmonary artery systolic pressure is 20 mmHg. Aortic Valve Trisinus/trileaflet aortic valve. Aortic sclerosis, no stenosis. There is no aortic stenosis. No aortic valve insufficiency. Pulmonic Valve There is no pulmonic valvular stenosis. No pulmonic valve insufficiency. Great Vessels Normal aortic root. Pericardium/Pleural No pericardial effusion. MMode/2D Measurements & Calculations LVIDd: 4.2 cm IVSd: 0.91 cm LVOT diam: 2.0 cm LVIDs: 2.5 cm LVPWd: 0.92 cm LVOT area: 3.2 cm2 RVDd: 3.9 cm FS: 40.1 % Ao root diam: 3.8 cm LAV(MOD-bp): 47.6 ml LA A4 area: 16.6 cm2 LAV(MOD-bp) Indexed: 26.1 ml/m2 LAV(MOD-sp2): 56.1 ml LAV(MOD-sp4): 36.6 ml LA dimension(2D): 3.8 cm RA A4 area: 13.6 cm2 Time Measurements MV dec time: 0.41 sec Doppler Measurements & Calculations MV E max tony: 63.5 cm/sec Lat Peak E' Tony: 13.3 cm/sec Med Peak E' Tony: 7.8 cm/sec MV A max tony: 52.2 cm/sec E/E' lat: 4.8 E/E' med: 8.1 MV E/A: 1.2 Ao V2 max: 172.4 cm/sec LV V1 max: 144.5 cm/sec SV(LVOT): 99.2 ml Ao max P.9 mmHg LV V1 max P.3 mmHg Ao V2 mean: 133.5 cm/sec LV V1 mean P.4 mmHg Ao mean P.6 mmHg LV V1 mean: 111.6 cm/sec Ao V2 VTI: 42.2 cm LV V1 VTI: 30.5 cm GERBER(I,D): 2.4 cm2 GERBER(V,D): 2.7 cm2 PA V2 max: 94.2 cm/sec TR max tony: 193.2 cm/sec TR max P.9 mmHg ECHO/Echo Complete Interpretation Summary The estimated ejection fraction is 65 %. No evidence for diastolic dysfunction. Ordering Physician: DORIS DUEÑAS Referring Physician: ABIEL BECKER Performed By: Nina Velazquez, SOFYA, RVT
--- NOTE | 2020-10-21 10:41 | PCM.PN.ID ---
Physical Exam Narrative Face still sore, no fever, denies any joint pain or back pain Const no apparent distress General Appearance: cooperative Resp clear to auscultation bilaterally Cardio regular rate and regular rhythm GI normal to inspection, nondistended, normoactive bowel sounds Extremity no clubbing, cyanosis or edema General Extremity: no tenderness to palpation of joints or extremities Skin Skin Narrative: R face less inflammed ID ID: Route of nutrition/ use of supplements: [] Nutritional Intake: [] IV Site: [] Garland Catheter: [] Assessment & Plan Assessment/Plan (1) Facial cellulitis: PLAN: Concern for parotitis, treating with vanc/unasyn, seen by ENT. CT showed no abscess. 09/26/20 bcx with MRSA. Ucx with esbl klebs here but UA wbc only 0-5, so not treating. Bcx here again with staph aureus, likely MRSA. Will repeat bcx and check echo. Not clear if ECF was notified about previous (+) bcx. Will follow, d/w Dr. Torre (2) MRSA bacteremia:
[2020-10-21 12:55] LABS: Absolute Lymphocyte Count 3.87 X10^3/uL (0.83-4.51); Absolute Neutrophil Count 9.6 X10^3/uL (2.0-7.7); Basophil# 0.22 X10^3/uL; Basophil% 1.3 % (0-1); Eosinophil# 0.81 X10^3/uL; Eosinophils% 4.9 % (0-5); Lymphocyte # 3.87 X10^3/ul (0.83-4.51); Lymphocyte % 23.5 % (19-41); Mean Corp Hgb Conc 30.8 g/dL (32-36); Mean Corpuscular Volume 117.1 fL (80-94); Mean Platelet Vol. 10.5 fl (6.2-12.0); Monocyte# 1.68 X10^3/uL; Monocyte% 10.2 % (0-10); NRBC Flagged by Analyzer 0 % (0-5); Neutrophil # 9.55 X10^3/uL (2.7-7.7); Neutrophil % 58.2 % (47-70); POSITIVE DIFFERENTIAL YES; Platelet Count 250 K/mm3 (150-450); RBC Distribution Width CV 13.9 % (11.6-14.6); RBC Distribution Width SD 59.1 fl (35.1-43.9); Red Blood Count 2.22 M/mm3 (4.6-6.2); White Blood Count 16.5 K/mm3 (4.4-11.0)
[2020-10-21 13:15] LABS: Vancomycin, Trough Level 16.2 ug/mL (5.0-15.0)
[2020-10-21 13:24] LABS: Differential Indicated SCAN CRITERIA MET
[2020-10-21 13:28] LABS: Differential Comment SCANNED
--- NOTE | 2020-10-21 14:06 | CASEMGMT ---
Pt screened with [facility] Palliative Care Screening Tool due to strata 3, pt did not meet criteria.
--- NOTE | 2020-10-21 14:42 | CASEMGMT ---
Social Work Note Pt is not medically cleared for discharge today. ANI placed a call to Gabrielle at [facility] and updated her. SW faxed updated clinicals to [facility]. Plan: Return to [facility] once medically cleared Gabrielle Shultz HOME DAY CARE PROVIDER, DENTAL APPLIANCE MECHANIC
--- NOTE | 2020-10-21 14:42 | PCM.RX.CS ---
Consult Pharmacy has been consulted to manage selected antiobiotic: Vancomycin Type of Consult: Follow-up Suspected Infection: Skin/Soft tissue Labs: Sodium 141 mmol/L (136-145) 10/20/20 06:34 Potassium 3.7 mmol/L (3.5-5.1) 10/20/20 06:34 Chloride 109 mmol/L (98-107) H 10/20/20 06:34 Carbon Dioxide 28.0 mmol/L (21.0-32.0) 10/20/20 06:34 Anion Gap 4 (5-15) L 10/20/20 06:34 BUN 21 mg/dL (7-18) H 10/20/20 06:34 Creatinine 0.56 mg/dL (0.70-1.30) L 10/20/20 06:34 Est GFR (MDRD) Af Amer 188 mL/min (>60) 10/20/20 06:34 Est GFR (MDRD) Non-Af 155 mL/min (>60) 10/20/20 06:34 BUN/Creatinine Ratio 37.4 RATIO (10-20) H 10/20/20 06:34 Glucose 78 mg/dL (74-106) 10/20/20 06:34 Vancomycin Trough 16.2 ug/mL (5.0-15.0) H 10/21/20 12:30 Microbiology: Microbiology 10/19/20 20:40 Blood Culture (Wb) - Anticubital Left Blood Culture - Preliminary Staphylococcus aureus 10/19/20 20:05 Blood Culture (Wb) - Anticubital Right Blood Culture - Preliminary Staphylococcus aureus 10/19/20 20:35 Urine, Catheterized Urine Culture - Preliminary Klebsiella oxytoca Goal Trough: 15-20 mcg/mL Pharmacy Plan for Drug Dosing: VANCOMYCIN LEVEL RECEIVED Current Vancomycin Dose: 1250mg q12h (,) Number of Doses Received: 1750mg IV x1 in the ER on 10/20/20 at 0109, 1250mg IV x2 doses Vancomycin Level: 16.2 (ordered goal trough is 15-20) Hours Since Last Dose: 12 Renal Function: SrCr 0.56 Renal Function Trend: Stable Lab/Micro: Vancomycin Plan/Comments: trough is within ordered goal trough of 15-20. recommend continuing current dose of Vancomycin 1250mg IV q12h. recommend another trough before the 4th dose Pending Level: 10/23/20 at 0030 Pharmacy Service will continue to monitor and adjust dosing as required. Follow-Up Labs: Trough Vancomycin - 10/23/20 at 0030
[2020-10-21 17:36] VITALS: BP 110/51; PULSE 60; RESP 16; TEMP 36.6; O2SAT 95
--- NOTE | 2020-10-21 17:51 | PN.HOSP_ITS ---
Subjective Subjective Patient was seen and examined today, I discussed his care with infectious diseases today, patient's echocardiogram today did not show evidence of vegetations, patient had a normal EF. We received correspondence concerning the patient regarding his CODE STATUS today, his CODE STATUS should be a DNR CC arrest-I have made the addition of DO NOT INTUBATE. Patient's white blood cell count is still elevated, patient's blood cultures are positive for staph aureus which is assumed to be MRSA. Objective Data Objective Data Vital Signs: Vital Signs Temp Pulse Resp BP Pulse Ox 97.9 F 60 16 110/51 L 95 10/21/20 17:36 10/21/20 17:36 10/21/20 17:36 10/21/20 17:36 10/21/20 17:36 Oxygen Delivery Method Room Air Weight: 69.7 kg Body Mass Index (BMI) 22.1 Intake & Output: Intake and Output for Last 24 Hours 10/19/20 10/20/20 10/21/20 23:59 23:59 23:59 Intake Total 1000 / 1000 4955.75 / 4955.75 3411.42 / 3411.42 Output Total 200 / 200 Balance 1000 / 1000 4755.75 / 4755.75 3411.42 / 3411.42 Lab / Micro Data Result Diagrams: 10/21/20 12:30 10/20/20 06:34 Labs: Laboratory Results - last 24 hr 10/21/20 10/21/20 12:30 12:30 WBC 16.5 H RBC 2.22 L Hgb 8.0 L Hct 26.0 L MCV 117.1 H MCH 36.0 H MCHC 30.8 L RDW Std Deviation 59.1 H RDW Coeff of Stephany 13.9 Plt Count 250 MPV 10.5 Immature Gran % (Auto) 1.900 H Neut % (Auto) 58.2 Lymph % (Auto) 23.5 [place] % (Auto) 10.2 H Eos % (Auto) 4.9 Baso % (Auto) 1.3 H Absolute Neuts (auto) 9.6 H Absolute Lymphs (auto) 3.87 Nucleated RBC % 0 Differential Comment SCANNED Diff Path Review August foll Vancomycin Trough 16.2 H Micro: Microbiology 10/19/20 20:40 Blood Culture (Wb) - Anticubital Left Blood Culture - Preliminary Staphylococcus aureus 10/19/20 20:05 Blood Culture (Wb) - Anticubital Right Blood Culture - Preliminary Staphylococcus aureus 10/19/20 20:35 Urine, Catheterized Urine Culture - Preliminary Klebsiella oxytoca Physical Exam Const alert and no apparent distress Constitutional Narrative: Patient has marked cognitive impairment General Appearance: cooperative, well kempt and well developed Orientation / Consciousness: awake, oriented to person, oriented to place and oriented to time HEENT normocephalic and moist oral mucous membranes HEENT Narrative: There is redness noted over the patient's right facial area including his right cheek and his mandibular area on the right, this area is sli ghtly tender to palpation Head and Scalp: normocephalic Eyes PERRL, EOMs intact bilaterally and conjunctivae normal Neck nuchal rigidity, supple, no JVD and thyroid normal General: trachea midline Resp normal respiratory effort, no retractions, no use of accessory muscles and clear to auscultation bilaterally Auscultation: Negative for rales, rhonchi or wheezes Cardio regular rate, regular rhythm, S1 normal heart sound, S2 normal heart sound, no murmurs, no rub and no gallops GI normal to inspection, nondistended, normoactive bowel sounds, soft to palpation, non-tender and non-distended Extremity normal to inspection and no clubbing, cyanosis or edema Skin no rashes or lesions noted General Skin Exam: no breakdown Neuro CN's II-XII intact bilaterally Neuro Narrative: There is obvious cognitive impairment on examination Sensorium / Orientation: awake and alert Psych thought process normal Psych Narrative: Cognitive impairment present Assessment & Plan Assessment/Plan (1) MRSA bacteremia: PLAN: 1. Right facial cellulitis-secondary to MRSA-continue IV antibiotics per infectious diseases #2 MRSA bacteremia #3 colonization of the urine with ESBL Klebsiella-according to infectious diseases, this does not need to be treated #4 cognitive impairment secondary to developmental disorder #5 seizure disorder #6 anemia-etiology unclear #7 severe protein and caloric malnutrition Charges/Coding Visit Charges Inpatient E&M: 99070 Subs Hosp L2
[2020-10-21 20:27] VITALS: BP 104/55; PULSE 62; RESP 18; TEMP 36.7; O2SAT 94
[2020-10-21] MEDS: Mirtazapine 15 MG Tablet 7.5 MG PO (20:51)
[2020-10-21] MEDS: Divalproex Sodium 250 MG Tablet 1500 MG PO (20:51)
[2020-10-21] MEDS: Tamsulosin HCl 0.4 MG Capsule PO (20:52)
[2020-10-22 02:17] VITALS: BP 119/52; PULSE 67; RESP 18; TEMP 37.1; O2SAT 99
[2020-10-22] MEDS: 0.9% Normal Saline 1,000 ML 125 ML IV ×3 (04:01→23:16)
[2020-10-22 06:15] LABS: Absolute Lymphocyte Count 3.03 X10^3/uL (0.83-4.51); Absolute Neutrophil Count 6.3 X10^3/uL (2.0-7.7); Basophil# 0.17 X10^3/uL; Basophil% 1.4 % (0-1); Eosinophil# 0.59 X10^3/uL; Hematocrit 26.5 % (40-54); Hemoglobin 8.3 g/dL (13.0-16.5); Lymphocyte # 3.03 X10^3/ul (0.83-4.51); Lymphocyte % 25.8 % (19-41); Mean Corp Hgb Conc 31.3 g/dL (32-36); Mean Corpuscular Hgb 35.8 pg (27.0-32.0); Mean Corpuscular Volume 114.2 fL (80-94); Mean Platelet Vol. 10.3 fl (6.2-12.0); Monocyte# 1.37 X10^3/uL; Monocyte% 11.7 % (0-10); NRBC Flagged by Analyzer 0 % (0-5); Neutrophil # 6.34 X10^3/uL (2.7-7.7); Neutrophil % 54.1 % (47-70); Platelet Count 250 K/mm3 (150-450); RBC Distribution Width CV 13.8 % (11.6-14.6); RBC Distribution Width SD 58.3 fl (35.1-43.9); Red Blood Count 2.32 M/mm3 (4.6-6.2); White Blood Count 11.7 K/mm3 (4.4-11.0)
[2020-10-22 08:00] VITALS: BP 119/86; PULSE 66; RESP 18; TEMP 37.1; O2SAT 97
[2020-10-22] MEDS: ZONISAMIDE 100 MG CAPSULE PO ×2 (09:29→21:51)
[2020-10-22] MEDS: lamoTRIgine 100 MG Tablet PO (09:29)
[2020-10-22] MEDS: Lidocaine 5% Patch 1 PATCH TOPICAL (09:38)
[2020-10-22 12:39] LABS: Pathologist Review Reviewed
--- NOTE | 2020-10-22 13:46 | PCM.PN.ID ---
Physical Exam Narrative Feeling ok, face less sore Const no apparent distress General Appearance: cooperative Resp normal air movement and clear to auscultation bilaterally Cardio regular rate and regular rhythm GI normal to inspection, nondistended, normoactive bowel sounds Skin Skin Narrative: Improved R face redness and swelling ID ID: Route of nutrition/ use of supplements: [] Nutritional Intake: [] IV Site: [] Garland Catheter: [] Assessment & Plan Assessment/Plan (1) Facial cellulitis: PLAN: Concern for parotitis, treating with vanc/unasyn, seen by ENT. CT showed no abscess. 09/26/20 bcx with MRSA. Ucx with esbl klebs here but UA wbc only 0-5, so not treating. Bcx here again with MRSA. Checking repeat bcx. No veg seen on TTE. ECF was notified about previous (+) bcx. Will follow (2) MRSA bacteremia:
[2020-10-22 15:00] VITALS: BP 109/72; PULSE 76; RESP 18; TEMP 37.1; O2SAT 96
--- NOTE | 2020-10-22 15:30 | CASEMGMT ---
Social Work Note ANI updated that ID is to make recommendations on Antibiotics at discharge. Pt will either be on PO or IV antibiotics pending pt's repeat blood cultures. ANI placed a call to Razia at [facility] and updated her that pt will either be discharged on PO or IV antibiotics. Razia states that if pt is discharged on PO antibiotics then pt can return to [facility] over the weekend but if pt needs IV antibiotics, pt will need to remain at [facility] until Sunday when [facility] can be updated on pt's IV antibiotics and their DON can be updated on IV antibiotics. ANI placed a call to Lucila with [employer] (pt's Legal Guardian that is covering for Mandy) and updated her on above information. Lucila states understanding. ANI placed Green Sheet, transport forms, and COVID tool on pt's chart. ANI wrote specifically that pt can only be discharged to [facility] over the weekend if pt is on PO antibiotics. If pt needs IV antibiotics, pt will need to remain at [facility] until Sunday. Pt will also need a COVID test on day of discharge. Plan: Return to [facility] when medically cleared. *Pt can only return to [facility] over the weekend if pt is on PO Antibiotics. If pt is on IV antibiotics, pt will need to remain at [facility] until Sunday when [facility] can be updated on IV antibiotics. *Pt will need COVID test on day of discharge *Pt's Legal Guardian (Lucila or Mandy) will need to be updated on when pt discharges back to [facility]. [facility] as Mandy is on vacation. Lucila's number is [phone]. Lucila's number is on Green sheet and so is [employer]'s number. Gabrielle Shultz METER INSTALLER, FIBER TECHNOLOGIST
--- NOTE | 2020-10-22 18:21 | PN.HOSP_ITS ---
Subjective Subjective Patient was seen and examined today, he is alert and does not appear to be in any distress at this time. I talked briefly with infectious diseases about his care today, patient's blood culture from October 21 is pending at this time, the blood culture from 10/19/2020 was positive for MRSA. Patient's white blood cell count was improved today. Objective Data Objective Data Vital Signs: Vital Signs Temp Pulse Resp BP Pulse Ox 98.8 F 76 18 109/72 96 10/22/20 15:00 10/22/20 15:00 10/22/20 15:00 10/22/20 15:00 10/22/20 15:00 Oxygen Delivery Method Room Air Weight: 67.9 kg Body Mass Index (BMI) 22.1 Intake & Output: Intake and Output for Last 24 Hours 10/20/20 10/21/20 10/22/20 23:59 23:59 23:59 Intake Total 4955.75 / 4955.75 4791.67 / 4791.67 2084.42 / 2084.42 Output Total 200 / 200 1045 / 1045 Balance 4755.75 / 4755.75 4791.67 / 4791.67 1039.42 / 1039.42 Lab / Micro Data Result Diagrams: 10/22/20 06:05 10/20/20 06:34 Labs: Laboratory Results - last 24 hr 10/21/20 10/22/20 12:30 06:05 WBC 11.7 H RBC 2.32 L Hgb 8.3 L Hct 26.5 L MCV 114.2 H MCH 35.8 H MCHC 31.3 L RDW Std Deviation 58.3 H RDW Coeff of Stephany 13.8 Plt Count 250 MPV 10.3 Immature Gran % (Auto) 2.000 H Neut % (Auto) 54.1 Lymph % (Auto) 25.8 [place] % (Auto) 11.7 H Eos % (Auto) 5.0 Baso % (Auto) 1.4 H Absolute Neuts (auto) 6.3 Absolute Lymphs (auto) 3.03 Nucleated RBC % 0 Diff Path Review Reviewed Micro: Microbiology 10/19/20 20:40 Blood Culture (Wb) - Anticubital Left Bacteria Detection (PCR) - Final Staphylococcus aureus mecA Resistance Marker 10/19/20 20:40 Blood Culture (Wb) - Anticubital Left Blood Culture - Preliminary Staphylococcus aureus 10/19/20 20:35 Urine, Catheterized Urine Culture - Final Klebsiella oxytoca 10/19/20 20:05 Blood Culture (Wb) - Anticubital Right Blood Culture - Preliminary Meth. resistant Staph. aureus Radiography Diagnostic Testing: Radiology Impression Echocardiogram 10/21/20 09:46 Interpretation Summary The estimated ejection fraction is 65 %. No evidence for diastolic dysfunction. Ordering Physician: DORIS DUEÑAS Referring Physician: ABIEL BECKER Performed By: Nina Velazquez, SOFYA, RVT Physical Exam Const alert and no apparent distress Constitutional Narrative: Patient has marked cognitive impairment General Appearance: cooperative, well kempt and well developed Orientation / Consciousness: awake, oriented to person, oriented to place and oriented to time HEENT normocephalic and moist oral mucous membranes HEENT Narrative: Patient's right facial area is reddened and slightly warm to the touch but not overly tender. Eyes PERRL, EOMs intact bilaterally and conjunctivae normal Neck nuchal rigidity, supple, no JVD and thyroid normal General: trachea midline Resp normal respiratory effort, no retractions, no use of accessory muscles and clear to auscultation bilaterally Auscultation: Negative for rales, rhonchi or wheezes Cardio regular rate, regular rhythm, S1 normal heart sound, S2 normal heart sound, no murmurs, no rub and no gallops GI normal to inspection, nondistended, normoactive bowel sounds, soft to palpation, non-tender and non-distended Extremity normal to inspection and no clubbing, cyanosis or edema Skin no rashes or lesions noted General Skin Exam: no breakdown Neuro CN's II-XII intact bilaterally Neuro Narrative: There is obvious cognitive impairment on examination Sensorium / Orientation: awake and alert Psych thought process normal Psych Narrative: Cognitive impairment present Assessment & Plan Assessment/Plan (1) MRSA bacteremia: PLAN: 1. 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
[2020-10-22] MEDS: Divalproex Sodium 250 MG Tablet 1500 MG PO (21:51)
[2020-10-22] MEDS: Famotidine 20 MG Tablet PO (21:51)
[2020-10-22] MEDS: Tamsulosin HCl 0.4 MG Capsule PO (21:51)
[2020-10-22] MEDS: Mirtazapine 15 MG Tablet 7.5 MG PO (21:52)
[2020-10-22] MEDS: Senna Tablet 1 TABLET PO (21:52)
[2020-10-22 22:04] VITALS: BP 136/89; PULSE 64; RESP 18; TEMP 36.4; O2SAT 100
[2020-10-23 00:55] LABS: Vancomycin, Trough Level 21.9 ug/mL (5.0-15.0)
--- NOTE | 2020-10-23 02:38 | PCM.RX.CS ---
Consult Pharmacy has been consulted to manage selected antiobiotic: Vancomycin Type of Consult: Follow-up Labs: Sodium 141 mmol/L (136-145) 10/20/20 06:34 Potassium 3.7 mmol/L (3.5-5.1) 10/20/20 06:34 Chloride 109 mmol/L (98-107) H 10/20/20 06:34 Carbon Dioxide 28.0 mmol/L (21.0-32.0) 10/20/20 06:34 Anion Gap 4 (5-15) L 10/20/20 06:34 BUN 21 mg/dL (7-18) H 10/20/20 06:34 Creatinine 0.56 mg/dL (0.70-1.30) L 10/20/20 06:34 Est GFR (MDRD) Af Amer 188 mL/min (>60) 10/20/20 06:34 Est GFR (MDRD) Non-Af 155 mL/min (>60) 10/20/20 06:34 BUN/Creatinine Ratio 37.4 RATIO (10-20) H 10/20/20 06:34 Glucose 78 mg/dL (74-106) 10/20/20 06:34 Vancomycin Trough 21.9 ug/mL (5.0-15.0) H 10/23/20 00:30 Microbiology: Microbiology 10/19/20 20:40 Blood Culture (Wb) - Anticubital Left Bacteria Detection (PCR) - Final Staphylococcus aureus mecA Resistance Marker 10/19/20 20:40 Blood Culture (Wb) - Anticubital Left Blood Culture - Preliminary Staphylococcus aureus 10/19/20 20:35 Urine, Catheterized Urine Culture - Final Klebsiella oxytoca 10/19/20 20:05 Blood Culture (Wb) - Anticubital Right Blood Culture - Preliminary Meth. resistant Staph. aureus Goal Trough: 15-20 mcg/mL Pharmacy Plan for Drug Dosing: Pharmacy Service will continue to monitor and adjust dosing as required. TROUGH 21.9 D/C CURRENT ORDER, DRAW RANDOM LEVEL IN 18 HOURS AND REDOSE Follow-Up Labs: Trough Vancomycin Labs to be done on [date and time ordered]: 10/23 @ 5117
[2020-10-23 05:06] VITALS: BP 135/48; PULSE 60; RESP 16; TEMP 36.4; O2SAT 98
[2020-10-23] MEDS: lamoTRIgine 100 MG Tablet PO (09:52)
[2020-10-23] MEDS: Potassium Chloride Oral Tablet 20 MEQ PO (09:52)
[2020-10-23] MEDS: ZONISAMIDE 100 MG CAPSULE PO (09:53)
[2020-10-23] MEDS: Multivitamins,Therapeutic Tablet 1 TABLET PO (09:53)
[2020-10-23] MEDS: Famotidine 20 MG Tablet PO (09:53)
[2020-10-23] MEDS: Senna Tablet 1 TABLET PO (09:53)
[2020-10-23] MEDS: Pyridoxine HCl 100 MG Tablet PO (09:53)
[2020-10-23] MEDS: Polyethylene Glycol 3350 17 GM PACKET PO (09:53)
[2020-10-23] MEDS: Lidocaine 5% Patch 1 PATCH TOPICAL (10:06)
[2020-10-23 11:06] VITALS: BP 114/58; PULSE 74; RESP 18; TEMP 36.7; O2SAT 97
--- NOTE | 2020-10-23 11:45 | NURSING ---
PT NOT EATING ANY FOOD OFF MEAL TRAYS, BUT IS DRINKING ALOT OF FLUIDS/ENSURE.
[2020-10-23] MEDS: 0.9% Normal Saline 1,000 ML 125 ML IV (11:51)
--- NOTE | 2020-10-23 15:38 | PCM.TXEXTCAR ---
Diet 10/20/20 01:21 Diet: Regular - General Food consistency:: Soft & Bite Sized Liquid Consistency:: Regular/Thin Type of Dietary Supplement:: Ensure Enlive Is pt able to select menu?: No Diet Comments: Ensure Enlive 240 ml w/ meals & Ensure Clear 120 ml w/ meals. 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 Allergies/Procedures Done in Hospital Allergies camphor [From Vicks Vaporub] Allergy (Verified 10/19/20 18:37) Other clobazam [From Onfi] Allergy (Verified 10/19/20 18:37) Other eucalyptus [From Vicks Vaporub] Allergy (Verified 10/19/20 18:37) Other eucalyptus oil [From Vicks Vaporub] Allergy (Verified 10/19/20 18:37) Other levetiracetam [From Keppra] Allergy (Verified 10/19/20 18:37) Other menthol [From Vicks Vaporub] Allergy (Verified 10/19/20 18:37) Other petrolatum,white [From Vicks Vaporub] Allergy (Verified 10/19/20 18:37) Other turpentine oil [From Vicks Vaporub] Allergy (Verified 10/19/20 18:37) Other Procedures: 2-D Echocardiogram Type of Care/Length of Stay Estimated LOS: More Than 30 Days Type of Care Needed: Intermediate Rehab Potential: Fair Prognosis: Fair Additional Orders/Day of Discharge H&P will serve as current which was dated: 10/20/20 Day of Discharge: 10/23/20 Dietary and Speech Recommendations Dietitian Recommendations/Changes: Will provide Ensure Enlive 240 ml & Ensure Clear 120 ml w/ pt meals. Continue regular diet. Recommend consideration of enteral nutrition support as pt present with severe malnutrition and likely will not be able to meet estimated nutrition needs via PO diet. Discharge Plan Admission Admit Date/Time: 10/20/20 00:19 Primary Reason for Your Visit: facial cellulitis Attending Provider: Ritchie Torre Primary Care Provider: Beth Ventura Consulting Providers: Billy Paredes ; Esteban Macias Instructions Additional Instructions / Restrictions: Doxycycline is to be given for ten days Discharge Orders/Prescriptions Prescriptions: New doxycycline monohydrate 100 mg tablet 100 mg PO BID Qty: 20 RF: 0 ferrous sulfate 325 mg (65 mg iron) tablet 325 mg PO BID Qty: 1 RF: 0 Continued zonisamide 100 MG capsule 100 mg PO BID@799,1999 RF: 0 lamotrigine 100 MG tablet extended release 24hr 100 mg PO DAILY@799 RF: 0 sennosides 8.6 MG tablet 8.6 mg PO DAILY@799,1999 RF: 0 divalproex 500 MG tablet,delayed release (DR/EC) 1,500 mg PO DAILY@1999 RF: 0 tamsulosin 0.4 MG capsule 0.4 mg PO QHS RF: 0 polyethylene glycol 3350 238 GM powder 17 gm PO DAILY@08 Qty: 0 RF: 0 calcium carbonate-vitamin D3 1 EACH tablet 1 ea PO BID@ RF: 0 bisacodyl 10 mg Suppository 10 mg DE DAILY PRN (Reason: if no bm in 4 days) RF: 0 lidocaine [Lidoderm] 5 % Adhesive Patch,Medicated 1 patch TOPICAL DAILY RF: 0 pyridoxine (vitamin B6) 100 mg Tablet 100 mg PO DAILY RF: 0 mirtazapine [Remeron] 15 mg Tablet 7.5 mg PO DAILY RF: 0 lactulose 10 gram/15 mL Solution 30 ml PO QHS PRN (Reason: LIVER FAILURE) RF: 0 Certavite-Antioxidant 18-400 mg-mcg Tablet 1 tab PO DAILY RF: 0 potassium chloride 20 mEq Tablet Extended Release 20 meq PO DAILY RF: 0 Discontinued guaifenesin 100 mg/5 mL Liquid 200 mg PO Q4H PRN (Reason: Cough) RF: 0 aluminm,mag yrh-apwssms-kesmhz 30 ml PO/SL Q4H PRN (Reason: GI distress) RF: 0 Referrals / Follow Up: Beth Ventura MD [Primary Care Provider] - Disposition Disposition (needs filled in before D/C Order can be placed): [facility]
[2020-10-23 17:00] VITALS: BP 122/68; PULSE 62; RESP 18; TEMP 36.9; O2SAT 95
--- NOTE | 2020-10-23 18:09 | NURSING ---
report called to Angelique @ [facility]
--- NOTE | 2020-10-23 19:30 | PCM.RX.CS ---
Consult Pharmacy has been consulted to manage selected antiobiotic: Vancomycin Type of Consult: Follow-up Labs: Sodium 141 mmol/L (136-145) 10/20/20 06:34 Potassium 3.7 mmol/L (3.5-5.1) 10/20/20 06:34 Chloride 109 mmol/L (98-107) H 10/20/20 06:34 Carbon Dioxide 28.0 mmol/L (21.0-32.0) 10/20/20 06:34 Anion Gap 4 (5-15) L 10/20/20 06:34 BUN 21 mg/dL (7-18) H 10/20/20 06:34 Creatinine 0.56 mg/dL (0.70-1.30) L 10/20/20 06:34 Est GFR (MDRD) Af Amer 188 mL/min (>60) 10/20/20 06:34 Est GFR (MDRD) Non-Af 155 mL/min (>60) 10/20/20 06:34 BUN/Creatinine Ratio 37.4 RATIO (10-20) H 10/20/20 06:34 Glucose 78 mg/dL (74-106) 10/20/20 06:34 Vancomycin Trough 21.9 ug/mL (5.0-15.0) H 10/23/20 00:30 Random Vancomycin 16.0 ug/mL (0.0-15.0) H 10/23/20 18:39 Microbiology: Microbiology 10/23/20 15:40 Mucosa - Nose SARS-CoV-2 Antigen (Rapid) - Final 10/19/20 20:05 Blood Culture (Wb) - Anticubital Right Blood Culture - Preliminary Meth. resistant Staph. aureus 10/19/20 20:40 Blood Culture (Wb) - Anticubital Left Bacteria Detection (PCR) - Final Staphylococcus aureus mecA Resistance Marker 10/19/20 20:40 Blood Culture (Wb) - Anticubital Left Blood Culture - Final Staphylococcus aureus 10/19/20 20:35 Urine, Catheterized Urine Culture - Final Klebsiella oxytoca Goal Trough: 15-20 mcg/mL Pharmacy Plan for Drug Dosing: Pharmacy Service will continue to monitor and adjust dosing as required. RANDOM TROUGH 16.0 NEW DOSE 1GM Q12H FOLLOW UP TROUGH 10/25 Follow-Up Labs: Trough Vancomycin Labs to be done on [date and time ordered]: 10/25 @ 0700
[2020-10-23] MEDS: Vancomycin IV 1,000 MG/200 ML BAG 200 MG IV (20:23)
[2020-10-23 21:49] VITALS: BP 112/54; PULSE 57; RESP 16; TEMP 37; O2SAT 98
--- NOTE | 2020-10-27 18:10 | DS.PCM_ITS ---
Providers Date of Admission: 10/20/20 Date of Discharge: 10/23/20 Primary Care Physician: Dr. Beth Ventura MD Consultations 10/20/20 12:11 Consult: Infectious Disease Routine Consulting Provider: Billy Paredes Reason for Consult: facial cellulitis EMERGENT Consult: No Notified: Yes Date Notified: 10/20/20 Time Notified: 12:12 Method of Notification: Verbal 10/20/20 16:45 Consult: ENT Routine Consulting Provider: Esteban Macias Reason for Consult: cellulitis of face, parotitis EMERGENT Consult: No Notified: Yes Date Notified: 10/20/20 Time Notified: 16:45 Method of Notification: Verbal Method of Consult:: In-Person Reason For Visit: FACIAL CELLULITITS, UTI Diagnosis Discharge Diagnosis (1) MRSA bacteremia: Status: Acute Code(s): R78.81 - Bacteremia; B95.62 - Methicillin resistant Staphylococcus aureus infection as the cause of diseases classified elsewhere (2) Facial cellulitis: Status: Acute Code(s): L03.211 - Cellulitis of face (3) MRDD: Status: Chronic (4) Seizure disorder: Status: Chronic Code(s): G40.909 - Epilepsy, unspecified, not intractable, without status epilepticus (5) Anemia: Status: Chronic Code(s): D64.9 - Anemia, unspecified (6) Malnutrition: Status: Acute Code(s): E46 - Unspecified protein-calorie malnutrition (7) Colonization with drug-resistant bacteria: Status: Chronic Code(s): Z22.39 - Carrier of other specified bacterial diseases Plan: 1. 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) #6 severe protein and caloric malnutrition #7 chronic iron deficiency anemia Medications at Discharge Home Medications lamotrigine 100 mg PO DAILY@0800 10/16/19 zonisamide 100 mg PO BID@0800,199910/16/19 divalproex 1,500 mg PO DAILY@199912/08/19 sennosides 8.6 mg PO DAILY@0800,199912/08/19 tamsulosin 0.4 mg PO QHS 12/08/19 polyethylene glycol 3350 17 gm PO DAILY@0800 #0 12/12/19 calcium carbonate-vitamin D3 1 ea PO BID@799,199901/05/20 Certavite-Antioxidant 1 tab PO DAILY 10/20/20 bisacodyl 10 mg [place] DAILY PRN 10/20/20 lactulose 30 ml PO QHS PRN 10/20/20 lidocaine [Lidoderm] 1 patch TOPICAL DAILY 10/20/20 mirtazapine [Remeron] 7.5 mg PO DAILY 10/20/20 potassium chloride 20 meq PO DAILY 10/20/20 pyridoxine (vitamin B6) 100 mg PO DAILY 10/20/20 doxycycline monohydrate 100 mg PO BID #20 tab 10/23/20 ferrous sulfate 325 mg PO BID #1 tab 10/23/20 Hospital Course Operations None Procedures 2-D Echocardiogram Summary of Care Provided Minutes Spent on Discharge: 31 Hospital Course: This 65-year-old white male with a history of chronic cognitive impairment due to developmental problems who was brought into the emergency room at [facility] for evaluation of right facial redness and right facial swelling from a local extended care facility which she resides, work-up in the emergency room showed the patient had an elevated white blood cell count, hemoglobin was low at 10.9, patient's bilirubin was elevated at 7, the patient's chemistry profile was unremarkable. CT maxillofacial with intravenous contrast showed swelling/inflammation involving the right parotid region and masseter muscles as well as thickening of the platysma. Patient was admitted for cellulitis of the face to [place] [address], IV antibiotics were continued, patient was seen in consultation by infectious diseases and ENT. Patient's blood cultures resulted positive for MRSA and patient received an echocardiogram which showed no evidence of vegetation. Patient status improved during his hospitalization, blood cultures finally resulted negative. On 10/23/2020, patient was seen and examined:Const alert and no apparent distress Constitutional Narrative: Patient has marked cognitive impairment General Appearance: cooperative, well kempt and well developed Orientation / Consciousness: awake, oriented to person, oriented to place and oriented to time HEENT normocephalic and moist oral mucous membranes HEENT Narrative: Patient's right facial area is reddened and slightly warm to the touch but not overly tender. Eyes PERRL, EOMs intact bilaterally and conjunctivae normal Neck nuchal rigidity, supple, no JVD and thyroid normal General: trachea midline Resp normal respiratory effort, no retractions, no use of accessory muscles and clear to auscultation bilaterally Auscultation: Negative for rales, rhonchi or wheezes Cardio regular rate, regular rhythm, S1 normal heart sound, S2 normal heart sound, no murmurs, no rub and no gallops GI normal to inspection, nondistended, normoactive bowel sounds, soft to palpation, non-tender and non-distended Extremity normal to inspection and no clubbing, cyanosis or edema Skin no rashes or lesions noted General Skin Exam: no breakdown Neuro CN's II-XII intact bilaterally Neuro Narrative: There is obvious cognitive impairment on examination Sensorium / Orientation: awake and alert Psych thought process normal Psych Narrative: Cognitive impairment present Patient was discharged to his extended care facility on 10/23/2020 in stable cond ition Weight / BMI Weight Weight: 68.629 kg Body Mass Index (BMI) 22.1 ABG / Lab / Microbiology Data Result Diagrams: 10/22/20 06:05 10/20/20 06:34 Microbiology: Microbiology 10/21/20 12:30 Blood Culture (Wb) - Anticubital Left Blood Culture - Final No growth in 5 days. 10/19/20 20:05 Blood Culture (Wb) - Anticubital Right Blood Culture - Final Meth. resistant Staph. aureus 10/22/20 13:35 Blood Culture (Wb) - Anticubital Left Blood Culture - Preliminary No growth in 48 hours. 10/23/20 15:40 Mucosa - Nose SARS-CoV-2 Antigen (Rapid) - Final 10/19/20 20:40 Blood Culture (Wb) - Anticubital Left Bacteria Detection (PCR) - Final Staphylococcus aureus mecA Resistance Marker 10/19/20 20:40 Blood Culture (Wb) - Anticubital Left Blood Culture - Final Staphylococcus aureus 10/19/20 20:35 Urine, Catheterized Urine Culture - Final Klebsiella oxytoca Meaningful Use Info Meaningful Use Diagnoses (Choose all that apply): None applicable Discharge Plan Admission Admit Date/Time: 10/20/20 00:19 Primary Reason for Your Visit: facial cellulitis Attending Provider: Ritchie Torre Primary Care Provider: Beth Ventura Consulting Providers: Billy Paredes ; Esteban Macias Instructions Additional Instructions / Restrictions: Doxycycline is to be given for ten days Discharge Orders/Prescriptions Prescriptions: New doxycycline monohydrate 100 mg tablet 100 mg PO BID Qty: 20 RF: 0 ferrous sulfate 325 mg (65 mg iron) tablet 325 mg PO BID Qty: 1 RF: 0 Continued zonisamide 100 MG capsule 100 mg PO BID@ RF: 0 lamotrigine 100 MG tablet extended release 24hr 100 mg PO DAILY@08 RF: 0 sennosides 8.6 MG tablet 8.6 mg PO DAILY@ RF: 0 divalproex 500 MG tablet,delayed release (DR/EC) 1,500 mg PO DAILY@1999 RF: 0 tamsulosin 0.4 MG capsule 0.4 mg PO QHS RF: 0 polyethylene glycol 3350 238 GM powder 17 gm PO DAILY@08 Qty: 0 RF: 0 calcium carbonate-vitamin D3 1 EACH tablet 1 ea PO BID@799,1999 RF: 0 bisacodyl 10 mg Suppository 10 mg [place] DAILY PRN (Reason: if no bm in 4 days) RF: 0 lidocaine [Lidoderm] 5 % Adhesive Patch,Medicated 1 patch TOPICAL DAILY RF: 0 pyridoxine (vitamin B6) 100 mg Tablet 100 mg PO DAILY RF: 0 mirtazapine [Remeron] 15 mg Tablet 7.5 mg PO DAILY RF: 0 lactulose 10 gram/15 mL Solution 30 ml PO QHS PRN (Reason: LIVER FAILURE) RF: 0 Certavite-Antioxidant 18-400 mg-mcg Tablet 1 tab PO DAILY RF: 0 potassium chloride 20 mEq Tablet Extended Release 20 meq PO DAILY RF: 0 Discontinued guaifenesin 100 mg/5 mL Liquid 200 mg PO Q4H PRN (Reason: Cough) RF: 0 aluminm,mag koe-mawtpoy-gvuqwm 30 ml PO/SL Q4H PRN (Reason: GI distress) RF: 0 Referrals / Follow Up: Beth Ventura MD [Primary Care Provider] - Disposition Disposition (needs filled in before D/C Order can be placed): Group Home Facility Charges/Coding Visit Charges Inpatient E&M: 74124 Disch Hosp
== END 2020-10-23 22:30 | disposition skilled nursing facility (03) | DRG 383 ==
LOC: ED 19:55 → MS3 10-20 04:26
PROVIDERS: Admitting Provider Family Medicine; Emergency Provider Emergency Medicine; PCP Internal Medicine; Visit Provider Internal Medicine
DX: L03.211 Cellulitis of face (principal); R78.81 Bacteremia; K11.21 Acute sialoadenitis; B95.62 Methicillin resistant Staphylococcus aureus infection as the cause of diseases classified elsewhere; Z22.39 Carrier of other specified bacterial diseases; R17 Unspecified jaundice; F79 Unspecified intellectual disabilities; D50.9 Iron deficiency anemia, unspecified; G40.909 Epilepsy, unspecified, not intractable, without status epilepticus; G31.9 Degenerative disease of nervous system, unspecified; E78.5 Hyperlipidemia, unspecified; N40.0 Benign prostatic hyperplasia without lower urinary tract symptoms; M19.90 Unspecified osteoarthritis, unspecified site; E43 Unspecified severe protein-calorie malnutrition; Z68.22 Body mass index [BMI] 22.0-22.9, adult; Z79.899 Other long term (current) drug therapy
CPT/HCPCS: 36415; 70487; 71045; 80048; 80053; 80076; 80202; 81001; 82140; 83605; 83735; 84100; 85025; 85610; 85730; 87040; 87077; 87086; 87088; 87149; 87186; 87426; 93306; 97802; 99251; 99285; J7030; J7040; J7050; Q9967; A4216; C8929; G0463; J0295; J2916; J3486

== ENCOUNTER → 2020-10-19 | Outpatient (REF) | payer MEDICAID, SELFPAY ==
[2020-09-26 20:02] VITALS: BMI 22.4
[2020-10-19 07:13] LABS: Absolute Lymphocyte Count 3.07 X10^3/uL (0.83-4.51); Absolute Neutrophil Count 9.1 X10^3/uL (2.0-7.7); Basophil# 0.17 X10^3/uL; Basophil% 1.1 % (0-1); Eosinophil# 0.24 X10^3/uL; Eosinophils% 1.6 % (0-5); Hematocrit 37.4 % (40-54); Hemoglobin 11.5 g/dL (13.0-16.5); Lymphocyte # 3.07 X10^3/ul (0.83-4.51); Lymphocyte % 20.5 % (19-41); Mean Corp Hgb Conc 30.7 g/dL (32-36); Mean Corpuscular Hgb 35.8 pg (27.0-32.0); Mean Corpuscular Volume 116.5 fL (80-94); Mean Platelet Vol. 10.9 fl (6.2-12.0); Monocyte# 2.15 X10^3/uL; Monocyte% 14.3 % (0-10); NRBC Flagged by Analyzer 0 % (0-5); Neutrophil # 9.11 X10^3/uL (2.7-7.7); Neutrophil % 60.8 % (47-70); POSITIVE DIFFERENTIAL YES; Platelet Count 208 K/mm3 (150-450); RBC Distribution Width CV 14.7 % (11.6-14.6); RBC Distribution Width SD 63.9 fl (35.1-43.9); Red Blood Count 3.21 M/mm3 (4.6-6.2)
[2020-10-19 07:14] LABS: Differential Indicated SCAN CRITERIA MET
[2020-10-19 07:46] LABS: ALB/GLOB Ratio 0.4 RATIO (0.9-2.4); AST(SGOT) 77 U/L (15-37); Alanine Aminotransfer ALT/SGPT 31 U/L (16-61); Albumin, Serum 1.9 g/dL (3.2-5.0); Alkaline Phosphatase 490 U/L (45-117); Anion Gap 7 (5-15); BUN 25 mg/dL (7-18); Calcium,Total 9.3 mg/dL (8.5-10.1); Chloride 104 mmol/L (98-107); Creatinine, Serum 0.76 mg/dL (0.70-1.30); EST Glomerular Filtration Rate 110 mL/min (>60); Est Glom Filt Rate - Afr Amer 133 mL/min (>60); Globulin 4.6 g/dL (2.2-4.2); Glucose 73 mg/dL (74-106); Potassium 4.2 mmol/L (3.5-5.1); Protein, Total 6.5 g/dL (6.4-8.2); Sodium Level 136 mmol/L (136-145)
[2020-10-20 12:17] VITALS: BMI 22.1
[2020-10-20 13:28] LABS: Pathologist Review Reviewed
== END | disposition home or self-care (01) ==
LOC: OLS.SW300 05:00
PROVIDERS: PCP Internal Medicine; Referring Provider Internal Medicine; Visit Provider Internal Medicine
DX: D64.9 Anemia, unspecified (principal); K74.60 Unspecified cirrhosis of liver
CPT/HCPCS: 36415; 80053; 85025

== ENCOUNTER → 2020-10-28 05:00 | Outpatient (REF) | payer MEDICAID, SELFPAY ==
[2020-10-20 12:17] VITALS: BMI 22.1
[2020-10-28 08:03] LABS: Hematocrit 36.7 % (40-54); Hemoglobin 11.1 g/dL (13.0-16.5); Mean Corp Hgb Conc 30.2 g/dL (32-36); Mean Corpuscular Hgb 34.9 pg (27.0-32.0); Mean Corpuscular Volume 115.4 fL (80-94); Mean Platelet Vol. 10.9 fl (6.2-12.0); Platelet Count 304 K/mm3 (150-450); RBC Distribution Width CV 13.7 % (11.6-14.6); RBC Distribution Width SD 59.2 fl (35.1-43.9); Red Blood Count 3.18 M/mm3 (4.6-6.2); White Blood Count 12.7 K/mm3 (4.4-11.0)
== END ==
LOC: OLS.SW300 05:00
PROVIDERS: PCP Internal Medicine; Visit Provider Internal Medicine
DX: D64.9 Anemia, unspecified (principal)
CPT/HCPCS: 36415; 85027

== ENCOUNTER → 2020-11-02 05:00 | Outpatient (REF) | payer MEDICAID, SELFPAY ==
[2020-10-20 12:17] VITALS: BMI 22.1
[2020-11-02 07:47] LABS: Hematocrit 35.2 % (40-54); Hemoglobin 10.8 g/dL (13.0-16.5); Mean Corp Hgb Conc 30.7 g/dL (32-36); Mean Corpuscular Hgb 34.6 pg (27.0-32.0); Mean Corpuscular Volume 112.8 fL (80-94); Mean Platelet Vol. 11.3 fl (6.2-12.0); Platelet Count 179 K/mm3 (150-450); RBC Distribution Width CV 13.6 % (11.6-14.6); RBC Distribution Width SD 56.6 fl (35.1-43.9); Red Blood Count 3.12 M/mm3 (4.6-6.2); White Blood Count 6.5 K/mm3 (4.4-11.0)
[2020-11-02 08:27] LABS: ALB/GLOB Ratio 0.5 RATIO (0.9-2.4); AST(SGOT) 51 U/L (15-37); Alanine Aminotransfer ALT/SGPT 21 U/L (16-61); Alkaline Phosphatase 520 U/L (45-117); Anion Gap 5 (5-15); BUN 17 mg/dL (7-18); BUN/Creat Ratio 25.9 RATIO (10-20); Calcium,Total 9.4 mg/dL (8.5-10.1); Chloride 108 mmol/L (98-107); Creatinine, Serum 0.66 mg/dL (0.70-1.30); EST Glomerular Filtration Rate 130 mL/min (>60); Est Glom Filt Rate - Afr Amer 157 mL/min (>60); Globulin 3.8 g/dL (2.2-4.2); Glucose 65 mg/dL (74-106); Potassium 3.9 mmol/L (3.5-5.1); Prealbumin 11.2 mg/dL (20.0-40.0); Protein, Total 5.8 g/dL (6.4-8.2); Sodium Level 142 mmol/L (136-145)
== END ==
LOC: OLS.SW300 05:00
PROVIDERS: PCP Internal Medicine; Visit Provider Internal Medicine
DX: D64.9 Anemia, unspecified (principal); N17.1 Acute kidney failure with acute cortical necrosis
CPT/HCPCS: 36415; 80053; 84134; 85027

== ENCOUNTER → 2020-11-09 05:00 | Outpatient (REF) | payer MEDICAID, SELFPAY ==
[2020-10-20 12:17] VITALS: BMI 22.1
[2020-11-09 07:22] LABS: Hematocrit 37.6 % (40-54); Hemoglobin 11.9 g/dL (13.0-16.5); Mean Corp Hgb Conc 31.6 g/dL (32-36); Mean Corpuscular Hgb 34.5 pg (27.0-32.0); Mean Platelet Vol. 12.5 fl (6.2-12.0); POSITIVE COUNT YES; Platelet Count 79 K/mm3 (150-450); RBC Distribution Width CV 13.4 % (11.6-14.6); RBC Distribution Width SD 54.3 fl (35.1-43.9); Red Blood Count 3.45 M/mm3 (4.6-6.2); White Blood Count 6.7 K/mm3 (4.4-11.0)
[2020-11-09 07:27] LABS: Scan Indicated on CBC? Y/N YES- FLAGS NOTED
[2020-11-09 07:54] LABS: ALB/GLOB Ratio 0.6 RATIO (0.9-2.4); AST(SGOT) 32 U/L (15-37); Alanine Aminotransfer ALT/SGPT 14 U/L (16-61); Albumin, Serum 2.1 g/dL (3.2-5.0); Alkaline Phosphatase 306 U/L (45-117); Anion Gap 7 (5-15); BUN 24 mg/dL (7-18); BUN/Creat Ratio 31.5 RATIO (10-20); Calcium,Total 9.3 mg/dL (8.5-10.1); Chloride 106 mmol/L (98-107); Creatinine, Serum 0.76 mg/dL (0.70-1.30); EST Glomerular Filtration Rate 109 mL/min (>60); Est Glom Filt Rate - Afr Amer 132 mL/min (>60); Globulin 3.7 g/dL (2.2-4.2); Glucose 60 mg/dL (74-106); Potassium 3.9 mmol/L (3.5-5.1); Protein, Total 5.8 g/dL (6.4-8.2); Sodium Level 142 mmol/L (136-145)
== END ==
LOC: OLS.SW300 05:00
PROVIDERS: PCP Internal Medicine; Visit Provider Internal Medicine
DX: D64.9 Anemia, unspecified (principal); E87.6 Hypokalemia; E46 Unspecified protein-calorie malnutrition
CPT/HCPCS: 36415; 80053; 84134; 85027

== ENCOUNTER → 2020-11-11 05:00 | Outpatient (REF) | payer MEDICAID, SELFPAY ==
[2020-10-20 12:17] VITALS: BMI 22.1
[2020-11-11 08:14] LABS: Hematocrit 40.8 % (40-54); Hemoglobin 12.8 g/dL (13.0-16.5); Mean Corp Hgb Conc 31.4 g/dL (32-36); Mean Corpuscular Hgb 34.7 pg (27.0-32.0); Mean Corpuscular Volume 110.6 fL (80-94); Mean Platelet Vol. 12.2 fl (6.2-12.0); POSITIVE COUNT YES; Platelet Count 68 K/mm3 (150-450); RBC Distribution Width CV 13.5 % (11.6-14.6); RBC Distribution Width SD 55.9 fl (35.1-43.9); Red Blood Count 3.69 M/mm3 (4.6-6.2); White Blood Count 7.2 K/mm3 (4.4-11.0)
[2020-11-11 08:20] LABS: Scan Indicated on CBC? Y/N NO
[2020-11-11 08:38] LABS: ALB/GLOB Ratio 0.6 RATIO (0.9-2.4); AST(SGOT) 36 U/L (15-37); Alanine Aminotransfer ALT/SGPT 16 U/L (16-61); Albumin, Serum 2.3 g/dL (3.2-5.0); Alkaline Phosphatase 275 U/L (45-117); Anion Gap 2 (5-15); BUN 25 mg/dL (7-18); BUN/Creat Ratio 30.2 RATIO (10-20); Calcium,Total 9.4 mg/dL (8.5-10.1); Chloride 108 mmol/L (98-107); Creatinine, Serum 0.83 mg/dL (0.70-1.30); EST Glomerular Filtration Rate 99 mL/min (>60); Est Glom Filt Rate - Afr Amer 120 mL/min (>60); Globulin 3.9 g/dL (2.2-4.2); Glucose 61 mg/dL (74-106); Potassium 4.2 mmol/L (3.5-5.1); Protein, Total 6.2 g/dL (6.4-8.2); Sodium Level 143 mmol/L (136-145)
== END ==
LOC: OLS.SW300 05:00
PROVIDERS: PCP Internal Medicine; Visit Provider Internal Medicine
DX: D64.9 Anemia, unspecified (principal); R53.83 Other fatigue
CPT/HCPCS: 36415; 80053; 82140; 85027

== ENCOUNTER → 2020-11-16 05:00 | Outpatient (REF) | payer MEDICAID, SELFPAY ==
[2020-10-20 12:17] VITALS: BMI 22.1
[2020-11-16 07:20] LABS: Hemoglobin 13.6 g/dL (13.0-16.5); Mean Corp Hgb Conc 31.6 g/dL (32-36); Mean Corpuscular Hgb 34.5 pg (27.0-32.0); Mean Corpuscular Volume 109.1 fL (80-94); POSITIVE COUNT YES; Platelet Count 78 K/mm3 (150-450); RBC Distribution Width CV 13.9 % (11.6-14.6); Red Blood Count 3.94 M/mm3 (4.6-6.2); White Blood Count 7.1 K/mm3 (4.4-11.0)
[2020-11-16 07:36] LABS: ALB/GLOB Ratio 0.6 RATIO (0.9-2.4); AST(SGOT) 31 U/L (15-37); Alanine Aminotransfer ALT/SGPT 17 U/L (16-61); Albumin, Serum 2.4 g/dL (3.2-5.0); Alkaline Phosphatase 199 U/L (45-117); Anion Gap 5 (5-15); BUN 27 mg/dL (7-18); BUN/Creat Ratio 29.1 RATIO (10-20); Calcium,Total 9.7 mg/dL (8.5-10.1); Chloride 112 mmol/L (98-107); Creatinine, Serum 0.93 mg/dL (0.70-1.30); EST Glomerular Filtration Rate 87 mL/min (>60); Est Glom Filt Rate - Afr Amer 106 mL/min (>60); Globulin 4.2 g/dL (2.2-4.2); Glucose 77 mg/dL (74-106); Potassium 4.2 mmol/L (3.5-5.1); Prealbumin 18.4 mg/dL (20.0-40.0); Protein, Total 6.6 g/dL (6.4-8.2); Sodium Level 147 mmol/L (136-145)
== END ==
LOC: OLS.SW300 05:00
PROVIDERS: PCP Internal Medicine; Referring Provider Internal Medicine; Visit Provider Internal Medicine
DX: D64.9 Anemia, unspecified (principal); K74.60 Unspecified cirrhosis of liver
CPT/HCPCS: 36415; 80053; 84134; 85027

== ENCOUNTER → 2020-11-18 05:00 | Outpatient (REF) | payer MEDICAID, SELFPAY ==
[2020-10-20 12:17] VITALS: BMI 22.1
[2020-11-18 07:36] LABS: Hematocrit 37.8 % (40-54); Hemoglobin 12.3 g/dL (13.0-16.5); Mean Corp Hgb Conc 32.5 g/dL (32-36); Mean Corpuscular Hgb 34.7 pg (27.0-32.0); Mean Corpuscular Volume 106.8 fL (80-94); Mean Platelet Vol. 12.5 fl (6.2-12.0); POSITIVE COUNT YES; Platelet Count 87 K/mm3 (150-450); RBC Distribution Width CV 14.2 % (11.6-14.6); RBC Distribution Width SD 55.8 fl (35.1-43.9); Red Blood Count 3.54 M/mm3 (4.6-6.2); White Blood Count 20.7 K/mm3 (4.4-11.0)
[2020-11-18 07:47] LABS: Scan Indicated on CBC? Y/N YES- FLAGS NOTED
[2020-11-18 07:50] LABS: ALB/GLOB Ratio 0.6 RATIO (0.9-2.4); AST(SGOT) 24 U/L (15-37); Alanine Aminotransfer ALT/SGPT 15 U/L (16-61); Albumin, Serum 2.1 g/dL (3.2-5.0); Alkaline Phosphatase 166 U/L (45-117); Anion Gap 2 (5-15); BUN 30 mg/dL (7-18); BUN/Creat Ratio 37.1 RATIO (10-20); Calcium,Total 9.3 mg/dL (8.5-10.1); Chloride 107 mmol/L (98-107); Creatinine, Serum 0.81 mg/dL (0.70-1.30); EST Glomerular Filtration Rate 102 mL/min (>60); Est Glom Filt Rate - Afr Amer 124 mL/min (>60); Globulin 3.8 g/dL (2.2-4.2); Glucose 67 mg/dL (74-106); Potassium 4.2 mmol/L (3.5-5.1); Protein, Total 5.9 g/dL (6.4-8.2); Sodium Level 140 mmol/L (136-145)
== END ==
LOC: OLS.SW300 05:00
PROVIDERS: PCP Internal Medicine; Visit Provider Internal Medicine
DX: D64.9 Anemia, unspecified (principal); K83.1 Obstruction of bile duct; K74.60 Unspecified cirrhosis of liver
CPT/HCPCS: 36415; 80053; 82140; 85027; 87040

== ENCOUNTER → 2020-11-19 05:00 | Outpatient (REF) | payer MEDICAID, SELFPAY ==
[2020-10-20 12:17] VITALS: BMI 22.1
== END ==
LOC: OLS.SW300 05:00
PROVIDERS: PCP Internal Medicine; Referring Provider Internal Medicine; Visit Provider Internal Medicine
DX: D72.829 Elevated white blood cell count, unspecified (principal)
CPT/HCPCS: 87086

== ENCOUNTER → 2020-11-23 05:00 | Outpatient (REF) | payer MEDICAID, SELFPAY ==
[2020-10-20 12:17] VITALS: BMI 22.1
[2020-11-23 07:56] LABS: Hematocrit 35.6 % (40-54); Hemoglobin 11.6 g/dL (13.0-16.5); Mean Corp Hgb Conc 32.6 g/dL (32-36); Mean Corpuscular Hgb 34.4 pg (27.0-32.0); Mean Corpuscular Volume 105.6 fL (80-94); Platelet Count 138 K/mm3 (150-450); RBC Distribution Width CV 14.4 % (11.6-14.6); RBC Distribution Width SD 55.9 fl (35.1-43.9); Red Blood Count 3.37 M/mm3 (4.6-6.2); White Blood Count 7.2 K/mm3 (4.4-11.0)
[2020-11-23 08:18] LABS: ALB/GLOB Ratio 0.7 RATIO (0.9-2.4); AST(SGOT) 32 U/L (15-37); Alanine Aminotransfer ALT/SGPT 17 U/L (16-61); Albumin, Serum 2.3 g/dL (3.2-5.0); Alkaline Phosphatase 130 U/L (45-117); Anion Gap 3 (5-15); BUN 20 mg/dL (7-18); BUN/Creat Ratio 29.1 RATIO (10-20); Calcium,Total 9.2 mg/dL (8.5-10.1); Chloride 107 mmol/L (98-107); Creatinine, Serum 0.69 mg/dL (0.70-1.30); EST Glomerular Filtration Rate 123 mL/min (>60); Est Glom Filt Rate - Afr Amer 149 mL/min (>60); Globulin 3.5 g/dL (2.2-4.2); Glucose 62 mg/dL (74-106); Potassium 3.7 mmol/L (3.5-5.1); Prealbumin 14.5 mg/dL (20.0-40.0); Protein, Total 5.8 g/dL (6.4-8.2); Sodium Level 141 mmol/L (136-145)
== END ==
LOC: OLS.SW300 05:00
PROVIDERS: PCP Internal Medicine; Referring Provider Internal Medicine; Visit Provider Internal Medicine
DX: D64.9 Anemia, unspecified (principal); E87.6 Hypokalemia; E46 Unspecified protein-calorie malnutrition
CPT/HCPCS: 36415; 80053; 84134; 85027

== ENCOUNTER → 2021-01-14 05:00 | Outpatient (REF) | payer MEDICAID, SELFPAY ==
[2021-01-14 08:19] LABS: Albumin, Serum 2.5 g/dL (3.2-5.0); BUN 17 mg/dL (7-18); Calcium,Total 9.8 mg/dL (8.5-10.1); Chloride 107 mmol/L (98-107); Creatinine, Serum 0.74 mg/dL (0.70-1.30); EST Glomerular Filtration Rate 113 mL/min (>60); Est Glom Filt Rate - Afr Amer 137 mL/min (>60); Glucose 77 mg/dL (74-106); Phosphorus 3.5 mg/dL (2.5-4.9); Sodium Level 140 mmol/L (136-145)
== END ==
LOC: OLS.SW300 05:00
PROVIDERS: PCP Internal Medicine; Visit Provider Internal Medicine
DX: N17.1 Acute kidney failure with acute cortical necrosis (principal)
CPT/HCPCS: 36415; 80069

== ENCOUNTER → 2021-04-27 05:00 | Outpatient (REF) | payer MEDICAID, SELFPAY ==
[2021-04-27 09:38] LABS: Absolute Lymphocyte Count 6.07 X10^3/uL (0.83-4.51); Absolute Neutrophil Count 2.2 X10^3/uL (2.0-7.7); Basophil# 0.07 X10^3/uL; Basophil% 0.7 % (0-1); Eosinophil# 0.22 X10^3/uL; Eosinophils% 2.3 % (0-5); Hematocrit 35.8 % (40-54); Hemoglobin 12.1 g/dL (13.0-16.5); Lymphocyte # 6.07 X10^3/ul (0.83-4.51); Lymphocyte % 64.4 % (19-41); Mean Corp Hgb Conc 33.8 g/dL (32-36); Mean Corpuscular Hgb 33.7 pg (27.0-32.0); Mean Corpuscular Volume 99.7 fL (80-94); Mean Platelet Vol. 11.2 fl (6.2-12.0); Monocyte# 0.72 X10^3/uL; Monocyte% 7.6 % (0-10); NRBC Flagged by Analyzer 0 % (0-5); Neutrophil # 2.24 X10^3/uL (2.7-7.7); Neutrophil % 23.9 % (47-70); POSITIVE DIFFERENTIAL YES; Platelet Count 158 K/mm3 (150-450); RBC Distribution Width CV 15.3 % (11.6-14.6); RBC Distribution Width SD 56.5 fl (35.1-43.9); Red Blood Count 3.59 M/mm3 (4.6-6.2); White Blood Count 9.4 K/mm3 (4.4-11.0)
[2021-04-27 09:45] LABS: Anion Gap 5 (5-15); BUN 21 mg/dL (7-18); BUN/Creat Ratio 23.5 RATIO (10-20); Chloride 107 mmol/L (98-107); EST Glomerular Filtration Rate 91 mL/min (>60); Est Glom Filt Rate - Afr Amer 110 mL/min (>60); Glucose 73 mg/dL (74-106); Potassium 4.1 mmol/L (3.5-5.1); Sodium Level 142 mmol/L (136-145)
[2021-04-27 09:50] LABS: Differential Indicated SCAN CRITERIA MET
== END ==
LOC: OLS.SW300 05:00
PROVIDERS: PCP Internal Medicine; Visit Provider Internal Medicine
DX: D64.9 Anemia, unspecified (principal); E46 Unspecified protein-calorie malnutrition; N17.1 Acute kidney failure with acute cortical necrosis; E87.6 Hypokalemia
CPT/HCPCS: 36415; 80048; 85025

== ENCOUNTER → 2021-05-04 | Outpatient (REF) | payer MEDICAID, SELFPAY ==
[2021-05-04 08:33] LABS: Valproic Acid (Depakene) Level 76 ug/mL (50-100)
[2021-05-07 14:45] LABS: Lamotrigine (Lamictal) Level 7.3 ug/mL (2.0-20.0)
== END | disposition home or self-care (01) ==
LOC: OLS.SW300 04:00
PROVIDERS: PCP Internal Medicine; Referring Provider Internal Medicine; Visit Provider Internal Medicine
DX: G40.909 Epilepsy, unspecified, not intractable, without status epilepticus (principal); K74.60 Unspecified cirrhosis of liver
CPT/HCPCS: 36415; 80164; 82140; 82542

== ENCOUNTER → 2021-05-16 04:00 | Outpatient (REF) | payer MEDICAID, SELFPAY ==
[2021-05-16 08:29] LABS: Absolute Lymphocyte Count 3.11 X10^3/uL (0.83-4.51); Absolute Neutrophil Count 1.5 X10^3/uL (2.0-7.7); Basophil# 0.05 X10^3/uL; Basophil% 0.9 % (0-1); Eosinophils% 1.9 % (0-5); Hematocrit 39.8 % (40-54); Hemoglobin 13.1 g/dL (13.0-16.5); Lymphocyte # 3.11 X10^3/ul (0.83-4.51); Lymphocyte % 58.3 % (19-41); Mean Corp Hgb Conc 32.9 g/dL (32-36); Mean Corpuscular Hgb 32.4 pg (27.0-32.0); Mean Corpuscular Volume 98.5 fL (80-94); Mean Platelet Vol. 11.8 fl (6.2-12.0); Monocyte# 0.53 X10^3/uL; Monocyte% 9.9 % (0-10); NRBC Flagged by Analyzer 0 % (0-5); Neutrophil # 1.52 X10^3/uL (2.7-7.7); Neutrophil % 28.6 % (47-70); Platelet Count 106 K/mm3 (150-450); RBC Distribution Width CV 13.8 % (11.6-14.6); RBC Distribution Width SD 50.7 fl (35.1-43.9); Red Blood Count 4.04 M/mm3 (4.6-6.2); White Blood Count 5.3 K/mm3 (4.4-11.0)
[2021-05-16 08:38] LABS: Anion Gap 5 (5-15); BUN 14 mg/dL (7-18); BUN/Creat Ratio 19.6 RATIO (10-20); Calcium,Total 9.1 mg/dL (8.5-10.1); Chloride 109 mmol/L (98-107); Creatinine, Serum 0.71 mg/dL (0.70-1.30); EST Glomerular Filtration Rate 118 mL/min (>60); Est Glom Filt Rate - Afr Amer 142 mL/min (>60); Glucose 82 mg/dL (74-106); Sodium Level 144 mmol/L (136-145)
== END ==
LOC: OLS.SW1020 04:00
PROVIDERS: PCP Internal Medicine; Visit Provider Internal Medicine
DX: U07.1 COVID-19 (principal)
CPT/HCPCS: 80048; 85025; 86140

== ENCOUNTER → 2021-05-23 04:00 | Outpatient (REF) | payer MEDICAID, SELFPAY ==
[2021-05-23 08:54] LABS: Hemoglobin 12.8 g/dL (13.0-16.5); Mean Corpuscular Hgb 32.4 pg (27.0-32.0); Mean Corpuscular Volume 101.3 fL (80-94); Platelet Count 249 K/mm3 (150-450); RBC Distribution Width CV 14.3 % (11.6-14.6); RBC Distribution Width SD 53.4 fl (35.1-43.9); Red Blood Count 3.95 M/mm3 (4.6-6.2); White Blood Count 7.3 K/mm3 (4.4-11.0)
[2021-05-23 08:58] LABS: Anion Gap 3 (5-15); BUN 17 mg/dL (7-18); BUN/Creat Ratio 17.7 RATIO (10-20); CRP 3.61 mg/L (0.0-3.0); Calcium,Total 9.5 mg/dL (8.5-10.1); Chloride 111 mmol/L (98-107); Creatinine, Serum 0.96 mg/dL (0.70-1.30); EST Glomerular Filtration Rate 84 mL/min (>60); Est Glom Filt Rate - Afr Amer 101 mL/min (>60); Glucose 71 mg/dL (74-106); Potassium 4.8 mmol/L (3.5-5.1); Sodium Level 141 mmol/L (136-145)
== END ==
LOC: OLS.SW1020 04:00
PROVIDERS: PCP Internal Medicine; Visit Provider Internal Medicine
DX: U07.1 COVID-19 (principal)
CPT/HCPCS: 36415; 80048; 85027; 86140

== ENCOUNTER → 2021-07-23 | Outpatient (REF) | payer MEDICAID, SELFPAY | END | disposition home or self-care (01) | LOC: OLS.SW300 09:30 | PROVIDERS: PCP Internal Medicine; Referring Provider Internal Medicine; Visit Provider Internal Medicine | DX: K74.60 Unspecified cirrhosis of liver (principal) | CPT/HCPCS: 82140 ==

== ENCOUNTER → 2021-07-27 | Outpatient (REF) | payer MEDICAID, SELFPAY ==
[2021-07-27 08:31] LABS: Hematocrit 36.4 % (40-54); Hemoglobin 12.4 g/dL (13.0-16.5); Mean Corp Hgb Conc 34.1 g/dL (32-36); Mean Corpuscular Hgb 32.6 pg (27.0-32.0); Mean Corpuscular Volume 95.8 fL (80-94); Mean Platelet Vol. 11.2 fl (6.2-12.0); Platelet Count 153 K/mm3 (150-450); RBC Distribution Width CV 14.3 % (11.6-14.6); RBC Distribution Width SD 50.5 fl (35.1-43.9); White Blood Count 8.2 K/mm3 (4.4-11.0)
[2021-07-27 08:51] LABS: ALB/GLOB Ratio 0.7 RATIO (0.9-2.4); AST(SGOT) 21 U/L (15-37); Alanine Aminotransfer ALT/SGPT 16 U/L (16-61); Albumin, Serum 2.7 g/dL (3.2-5.0); Alkaline Phosphatase 57 U/L (45-117); Anion Gap 5 (5-15); BUN 14 mg/dL (7-18); BUN/Creat Ratio 15.4 RATIO (10-20); Calcium,Total 9.4 mg/dL (8.5-10.1); Chloride 106 mmol/L (98-107); Creatinine, Serum 0.91 mg/dL (0.70-1.30); EST Glomerular Filtration Rate 89 mL/min (>60); Est Glom Filt Rate - Afr Amer 107 mL/min (>60); Ferritin 425 ng/mL (26-388); Globulin 3.8 g/dL (2.2-4.2); Glucose 76 mg/dL (74-106); Iron 121 ug/dL (65-175); Potassium 4.1 mmol/L (3.5-5.1); Protein, Total 6.5 g/dL (6.4-8.2); Sodium Level 136 mmol/L (136-145)
== END | disposition home or self-care (01) ==
LOC: OLS.SW300 04:00
PROVIDERS: PCP Internal Medicine; Referring Provider Internal Medicine; Visit Provider Internal Medicine
DX: K74.60 Unspecified cirrhosis of liver (principal); N19 Unspecified kidney failure
CPT/HCPCS: 36415; 80053; 82728; 83540; 85027

== ENCOUNTER → 2021-10-26 05:00 | Outpatient (REF) | payer MEDICAID, SELFPAY ==
[2021-10-26 08:30] LABS: Hematocrit 36.6 % (40-54); Hemoglobin 12.2 g/dL (13.0-16.5); Mean Corp Hgb Conc 33.3 g/dL (32-36); Mean Corpuscular Hgb 33.2 pg (27.0-32.0); Mean Corpuscular Volume 99.5 fL (80-94); Platelet Count 165 K/mm3 (150-450); RBC Distribution Width CV 13.8 % (11.6-14.6); RBC Distribution Width SD 50.8 fl (35.1-43.9); Red Blood Count 3.68 M/mm3 (4.6-6.2); White Blood Count 9.8 K/mm3 (4.4-11.0)
[2021-10-26 08:52] LABS: ALB/GLOB Ratio 0.7 RATIO (0.9-2.4); AST(SGOT) 21 U/L (15-37); Alanine Aminotransfer ALT/SGPT 19 U/L (16-61); Albumin, Serum 2.6 g/dL (3.2-5.0); Alkaline Phosphatase 54 U/L (45-117); Anion Gap 4 (5-15); BUN 17 mg/dL (7-18); BUN/Creat Ratio 18.9 RATIO (10-20); Calcium,Total 9.6 mg/dL (8.5-10.1); Chloride 108 mmol/L (98-107); EST Glomerular Filtration Rate 90 mL/min (>60); Est Glom Filt Rate - Afr Amer 109 mL/min (>60); Globulin 3.5 g/dL (2.2-4.2); Glucose 77 mg/dL (74-106); Potassium 4.4 mmol/L (3.5-5.1); Protein, Total 6.1 g/dL (6.4-8.2); Sodium Level 139 mmol/L (136-145)
[2021-10-26 08:55] LABS: Valproic Acid (Depakene) Level 121 ug/mL (50-100)
[2021-10-27 15:29] LABS: Lamotrigine (Lamictal) Level 8.4 ug/mL (2.0-20.0)
== END ==
LOC: OLS.SW300 05:00
PROVIDERS: PCP Internal Medicine; Visit Provider Internal Medicine
DX: G40.909 Epilepsy, unspecified, not intractable, without status epilepticus (principal); K74.60 Unspecified cirrhosis of liver; Z79.899 Other long term (current) drug therapy
CPT/HCPCS: 36415; 80053; 80164; 82140; 82542; 85027

== ENCOUNTER → 2021-11-11 | Outpatient (REF) | payer MEDICAID, SELFPAY ==
[2021-11-11 08:52] LABS: Valproic Acid (Depakene) Level 138 ug/mL (50-100)
== END | disposition home or self-care (01) ==
LOC: OLS.SW300 05:00
PROVIDERS: PCP Internal Medicine; Visit Provider Internal Medicine
DX: R56.9 Unspecified convulsions (principal)
CPT/HCPCS: 36415; 80164

== ENCOUNTER → 2022-01-03 | Outpatient (REF) | payer MEDICAID, SELFPAY ==
[2022-01-03 08:55] LABS: Valproic Acid (Depakene) Level 118 ug/mL (50-100)
== END | disposition home or self-care (01) ==
LOC: OLS.SW300 05:00
PROVIDERS: PCP Internal Medicine; Visit Provider Internal Medicine
DX: G40.919 Epilepsy, unspecified, intractable, without status epilepticus (principal)
CPT/HCPCS: 36415; 80164

== ENCOUNTER → 2022-01-04 | Outpatient (REF) | payer MEDICAID, SELFPAY ==
[2022-01-04 08:55] LABS: Valproic Acid (Depakene) Level 111 ug/mL (50-100)
== END | disposition home or self-care (01) ==
LOC: OLS.SW300 05:00
PROVIDERS: PCP Internal Medicine; Visit Provider Internal Medicine
DX: Z79.899 Other long term (current) drug therapy (principal)
CPT/HCPCS: 36415; 80164

== ENCOUNTER → 2022-01-20 | Outpatient (REF) | payer MEDICAID, SELFPAY ==
[2022-01-20 08:16] LABS: Valproic Acid (Depakene) Level 88 ug/mL (50-100)
== END | disposition home or self-care (01) ==
LOC: OLS.SW300 05:00
PROVIDERS: PCP Internal Medicine; Visit Provider Internal Medicine
DX: Z79.899 Other long term (current) drug therapy (principal)
CPT/HCPCS: 36415; 80164

== ENCOUNTER → 2022-05-01 | Outpatient (REF) | payer MEDICAID, SELFPAY ==
[2022-05-01 10:25] LABS: Hematocrit 45.1 % (40-54); Mean Corp Hgb Conc 33.3 g/dL (32-36); Mean Corpuscular Hgb 32.2 pg (27.0-32.0); Mean Corpuscular Volume 96.8 fL (80-94); Mean Platelet Vol. 11.5 fl (6.2-12.0); Platelet Count 188 K/mm3 (150-450); RBC Distribution Width CV 13.1 % (11.6-14.6); RBC Distribution Width SD 47.1 fl (35.1-43.9); Red Blood Count 4.66 M/mm3 (4.6-6.2); White Blood Count 10.2 K/mm3 (4.4-11.0)
[2022-05-01 10:51] LABS: ALB/GLOB Ratio 0.7 RATIO (0.9-2.4); AST(SGOT) 40 U/L (15-37); Alanine Aminotransfer ALT/SGPT 35 U/L (16-61); Albumin, Serum 2.8 g/dL (3.2-5.0); Alkaline Phosphatase 56 U/L (45-117); Anion Gap 11 (5-15); BUN 30 mg/dL (7-18); BUN/Creat Ratio 31.6 RATIO (10-20); Calcium,Total 9.6 mg/dL (8.5-10.1); Chloride 107 mmol/L (98-107); Creatinine, Serum 0.95 mg/dL (0.70-1.30); EST Glomerular Filtration Rate 85 mL/min (>60); Est Glom Filt Rate - Afr Amer 102 mL/min (>60); Globulin 4.1 g/dL (2.2-4.2); Glucose 100 mg/dL (74-106); Potassium 3.5 mmol/L (3.5-5.1); Protein, Total 6.9 g/dL (6.4-8.2); Sodium Level 142 mmol/L (136-145)
== END | disposition home or self-care (01) ==
LOC: OLS.SW 05:00
PROVIDERS: PCP Internal Medicine; Visit Provider Internal Medicine
DX: D64.9 Anemia, unspecified (principal)
CPT/HCPCS: 36415; 80053; 85027

== ENCOUNTER → 2022-05-15 | Outpatient (REF) | payer MEDICAID, SELFPAY ==
[2022-05-15 09:14] LABS: Absolute Lymphocyte Count 5.38 X10^3/uL (0.83-4.51); Absolute Neutrophil Count 3.2 X10^3/uL (2.0-7.7); Eosinophil# 0.21 X10^3/uL; Eosinophils% 2.2 % (0-5); Hematocrit 43.7 % (40-54); Hemoglobin 14.6 g/dL (13.0-16.5); Lymphocyte # 5.38 X10^3/ul (0.83-4.51); Lymphocyte % 55.2 % (19-41); Mean Corp Hgb Conc 33.4 g/dL (32-36); Mean Corpuscular Hgb 31.7 pg (27.0-32.0); Mean Corpuscular Volume 94.8 fL (80-94); Mean Platelet Vol. 11.1 fl (6.2-12.0); Monocyte# 0.76 X10^3/uL; Monocyte% 7.8 % (0-10); NRBC Flagged by Analyzer 0.4 % (0-5); Neutrophil # 3.18 X10^3/uL (2.7-7.7); Neutrophil % 32.6 % (47-70); POSITIVE DIFFERENTIAL YES; POSITIVE MORPHOLOGY YES; Platelet Count 252 K/mm3 (150-450); RBC Distribution Width CV 12.8 % (11.6-14.6); RBC Distribution Width SD 44.4 fl (35.1-43.9); Red Blood Count 4.61 M/mm3 (4.6-6.2); White Blood Count 9.8 K/mm3 (4.4-11.0)
[2022-05-15 09:30] LABS: Differential Indicated SCAN CRITERIA MET
[2022-05-15 09:47] LABS: Anion Gap 9 (5-15); BUN 15 mg/dL (7-18); Calcium,Total 9.2 mg/dL (8.5-10.1); Chloride 106 mmol/L (98-107); Creatinine, Serum 0.94 mg/dL (0.70-1.30); EST Glomerular Filtration Rate 86 mL/min (>60); Est Glom Filt Rate - Afr Amer 104 mL/min (>60); Glucose 99 mg/dL (74-106); Sodium Level 139 mmol/L (136-145)
== END | disposition home or self-care (01) ==
LOC: OLS.SW 04:00
PROVIDERS: PCP Internal Medicine; Referring Provider Internal Medicine; Visit Provider Internal Medicine
DX: N17.1 Acute kidney failure with acute cortical necrosis (principal); E87.6 Hypokalemia
CPT/HCPCS: 36415; 80048; 85025; 86140

== ENCOUNTER → 2022-05-22 | Outpatient (REF) | payer MEDICAID, SELFPAY ==
[2022-05-22 11:16] LABS: Absolute Lymphocyte Count 4.76 X10^3/uL (0.83-4.51); Absolute Neutrophil Count 2.6 X10^3/uL (2.0-7.7); Basophil# 0.07 X10^3/uL; Basophil% 0.8 % (0-1); Eosinophil# 0.19 X10^3/uL; Eosinophils% 2.2 % (0-5); Hematocrit 42.4 % (40-54); Hemoglobin 14.4 g/dL (13.0-16.5); Lymphocyte # 4.76 X10^3/ul (0.83-4.51); Lymphocyte % 55.2 % (19-41); Mean Corpuscular Hgb 32.4 pg (27.0-32.0); Mean Corpuscular Volume 95.3 fL (80-94); Mean Platelet Vol. 11.7 fl (6.2-12.0); Monocyte# 0.95 X10^3/uL; NRBC Flagged by Analyzer 0 % (0-5); Neutrophil # 2.59 X10^3/uL (2.7-7.7); Neutrophil % 30.1 % (47-70); Platelet Count 208 K/mm3 (150-450); RBC Distribution Width SD 49.3 fl (35.1-43.9); Red Blood Count 4.45 M/mm3 (4.6-6.2); White Blood Count 8.6 K/mm3 (4.4-11.0)
[2022-05-22 11:35] LABS: Anion Gap 7 (5-15); BUN 20 mg/dL (7-18); BUN/Creat Ratio 22.3 RATIO (10-20); CRP 3.83 mg/L (0.0-3.0); Calcium,Total 9.2 mg/dL (8.5-10.1); Chloride 111 mmol/L (98-107); EST Glomerular Filtration Rate 90 mL/min (>60); Est Glom Filt Rate - Afr Amer 109 mL/min (>60); Glucose 97 mg/dL (74-106); Potassium 3.9 mmol/L (3.5-5.1); Sodium Level 142 mmol/L (136-145)
== END | disposition home or self-care (01) ==
LOC: OLS.SW 05:00
PROVIDERS: PCP Internal Medicine; Visit Provider Internal Medicine
DX: U09.9 Post COVID-19 condition, unspecified (principal)
CPT/HCPCS: 36415; 80048; 85025; 86140

== ENCOUNTER → 2022-06-27 | Outpatient (REF) | payer MEDICAID, SELFPAY ==
[2022-06-27 09:56] LABS: Absolute Lymphocyte Count 4.12 X10^3/uL (0.83-4.51); Absolute Neutrophil Count 2.8 X10^3/uL (2.0-7.7); Anion Gap 9 (5-15); BUN 12 mg/dL (7-18); BUN/Creat Ratio 13.3 RATIO (10-20); Basophil# 0.07 X10^3/uL; Basophil% 0.9 % (0-1); Chloride 106 mmol/L (98-107); EST Glomerular Filtration Rate 89 mL/min (>60); Eosinophil# 0.16 X10^3/uL; Eosinophils% 2.1 % (0-5); Est Glom Filt Rate - Afr Amer 108 mL/min (>60); Glucose 119 mg/dL (74-106); Hemoglobin 14.1 g/dL (13.0-16.5); Lymphocyte # 4.12 X10^3/ul (0.83-4.51); Lymphocyte % 53.1 % (19-41); Mean Corp Hgb Conc 32.8 g/dL (32-36); Mean Corpuscular Hgb 31.9 pg (27.0-32.0); Mean Corpuscular Volume 97.3 fL (80-94); Mean Platelet Vol. 11.2 fl (6.2-12.0); Monocyte# 0.52 X10^3/uL; Monocyte% 6.7 % (0-10); NRBC Flagged by Analyzer 0 % (0-5); Neutrophil # 2.81 X10^3/uL (2.7-7.7); Neutrophil % 36.2 % (47-70); Platelet Count 208 K/mm3 (150-450); Potassium 3.9 mmol/L (3.5-5.1); RBC Distribution Width CV 13.7 % (11.6-14.6); RBC Distribution Width SD 49.5 fl (35.1-43.9); Red Blood Count 4.42 M/mm3 (4.6-6.2); Sodium Level 140 mmol/L (136-145); White Blood Count 7.8 K/mm3 (4.4-11.0)
[2022-06-27 09:58] LABS: Valproic Acid (Depakene) Level 105 ug/mL (50-100)
== END | disposition home or self-care (01) ==
LOC: OLS.SW 05:00
PROVIDERS: PCP Internal Medicine; Visit Provider Internal Medicine
DX: G40.919 Epilepsy, unspecified, intractable, without status epilepticus (principal); E46 Unspecified protein-calorie malnutrition; K74.60 Unspecified cirrhosis of liver; D59.9 Acquired hemolytic anemia, unspecified
CPT/HCPCS: 36415; 80048; 80164; 82140; 85025

== ENCOUNTER → 2022-07-21 | Outpatient (REF) | payer MEDICAID, SELFPAY ==
[2022-07-21 07:15] LABS: Valproic Acid (Depakene) Level 85 ug/mL (50-100)
== END | disposition home or self-care (01) ==
LOC: OLS.SW 05:00
PROVIDERS: PCP Internal Medicine; Visit Provider Internal Medicine
DX: G40.919 Epilepsy, unspecified, intractable, without status epilepticus (principal)
CPT/HCPCS: 36415; 80164

== ENCOUNTER → 2022-08-29 | Outpatient (REF) | payer MEDICAID, SELFPAY ==
[2022-08-29 08:29] LABS: Absolute Lymphocyte Count 5.45 X10^3/uL (0.83-4.51); Absolute Neutrophil Count 5.9 X10^3/uL (2.0-7.7); Basophil# 0.08 X10^3/uL; Basophil% 0.6 % (0-1); Eosinophil# 0.19 X10^3/uL; Eosinophils% 1.5 % (0-5); Hematocrit 41.1 % (40-54); Hemoglobin 13.7 g/dL (13.0-16.5); Lymphocyte # 5.45 X10^3/ul (0.83-4.51); Lymphocyte % 42.5 % (19-41); Mean Corp Hgb Conc 33.3 g/dL (32-36); Mean Corpuscular Hgb 32.3 pg (27.0-32.0); Mean Corpuscular Volume 96.9 fL (80-94); Mean Platelet Vol. 11.7 fl (6.2-12.0); Monocyte# 1.19 X10^3/uL; Monocyte% 9.3 % (0-10); NRBC Flagged by Analyzer 0 % (0-5); Neutrophil # 5.86 X10^3/uL (2.7-7.7); Neutrophil % 45.7 % (47-70); POSITIVE DIFFERENTIAL YES; POSITIVE MORPHOLOGY YES; Platelet Count 196 K/mm3 (150-450); RBC Distribution Width CV 13.4 % (11.6-14.6); Red Blood Count 4.24 M/mm3 (4.6-6.2); White Blood Count 12.8 K/mm3 (4.4-11.0)
[2022-08-29 08:32] LABS: Differential Indicated SCAN CRITERIA MET
[2022-08-29 08:39] LABS: Anion Gap 7 (5-15); BUN 12 mg/dL (7-18); BUN/Creat Ratio 14.8 RATIO (10-20); Calcium,Total 9.8 mg/dL (8.5-10.1); Chloride 108 mmol/L (98-107); Creatinine, Serum 0.81 mg/dL (0.70-1.30); EST Glomerular Filtration Rate 101 mL/min (>60); Est Glom Filt Rate - Afr Amer 122 mL/min (>60); Glucose 92 mg/dL (74-106); Potassium 3.9 mmol/L (3.5-5.1); Sodium Level 139 mmol/L (136-145)
[2022-08-29 08:51] LABS: Differential Comment SCANNED; Reactive Lymphocyte 1+
== END | disposition home or self-care (01) ==
LOC: OLS.SW 05:00
PROVIDERS: PCP Internal Medicine; Visit Provider Internal Medicine
DX: N17.1 Acute kidney failure with acute cortical necrosis (principal); K74.60 Unspecified cirrhosis of liver
CPT/HCPCS: 36415; 80048; 82140; 85025

== ENCOUNTER → 2022-09-04 | Outpatient (REF) | payer MEDICAID, SELFPAY ==
[2022-09-04 09:16] LABS: Mucous, Urine 0 SEEN /hpf (<or=2+); Red Blood Cells-Urine 0 SEEN /hpf (0-5)
[2022-09-04 09:30] LABS: Color, Urine Yellow (Yellow); Glucose, Dipstick Normal (Normal); Ketone-Dipstick 5 mg/dl (Negative); Leukocyte Esterase-Dipstick 500 /ul (Negative); Nitrite-Dipstick Positive (Negative); Occult Blood-Urine 10 /ul (Negative); Protein-Dipstick 15 mg/dl (Negative); Specific Gravity, Urine 1.015 (1.002-1.030); Urine Bilirubin Dipstick Negative (Negative); Urine Clarity Sl. Cloudy (Clear); Urine Urobilinogen 1 mg/dl (Normal)
[2022-09-04 09:38] LABS: Bacteria 2+ /hpf (None Seen); Squamous Epithelial Cells - UA 0-5 SEEN /hpf (0-5); White Blood Cells 50-100 SEEN /hpf (0-5)
== END | disposition home or self-care (01) ==
LOC: OLS.SW 03:00
PROVIDERS: PCP Internal Medicine; Visit Provider Internal Medicine
DX: D72.829 Elevated white blood cell count, unspecified (principal); R44.3 Hallucinations, unspecified; Z79.899 Other long term (current) drug therapy
CPT/HCPCS: 81001; 87086; 87088; 87186

== ENCOUNTER → 2022-10-16 | Outpatient (REF) | payer MEDICAID, SELFPAY ==
[2022-10-16 09:02] LABS: Absolute Lymphocyte Count 4.98 X10^3/uL (0.83-4.51); Absolute Neutrophil Count 3.7 X10^3/uL (2.0-7.7); Basophil# 0.12 X10^3/uL; Basophil% 1.2 % (0-1); Eosinophil# 0.22 X10^3/uL; Eosinophils% 2.2 % (0-5); Hematocrit 41.4 % (40-54); Hemoglobin 13.5 g/dL (13.0-16.5); Lymphocyte # 4.98 X10^3/ul (0.83-4.51); Lymphocyte % 48.7 % (19-41); Mean Corp Hgb Conc 32.6 g/dL (32-36); Mean Corpuscular Volume 98.1 fL (80-94); Mean Platelet Vol. 11.3 fl (6.2-12.0); Monocyte# 1.12 X10^3/uL; Monocyte% 10.9 % (0-10); NRBC Flagged by Analyzer 0 % (0-5); Neutrophil # 3.71 X10^3/uL (2.7-7.7); Neutrophil % 36.2 % (47-70); Platelet Count 202 K/mm3 (150-450); RBC Distribution Width CV 13.7 % (11.6-14.6); RBC Distribution Width SD 50.1 fl (35.1-43.9); Red Blood Count 4.22 M/mm3 (4.6-6.2); White Blood Count 10.2 K/mm3 (4.4-11.0)
[2022-10-16 09:12] LABS: Anion Gap 5 (5-15); BUN 16 mg/dL (7-18); BUN/Creat Ratio 19.8 RATIO (10-20); Chloride 111 mmol/L (98-107); Creatinine, Serum 0.81 mg/dL (0.70-1.30); EST Glomerular Filtration Rate 101 mL/min (>60); Est Glom Filt Rate - Afr Amer 123 mL/min (>60); Glucose 103 mg/dL (74-106); Sodium Level 142 mmol/L (136-145)
[2022-10-16 09:19] LABS: Valproic Acid (Depakene) Level 62 ug/mL (50-100)
== END | disposition home or self-care (01) ==
LOC: OLS.SW 05:00
PROVIDERS: PCP Internal Medicine; Visit Provider Internal Medicine
DX: D64.9 Anemia, unspecified (principal); Z79.899 Other long term (current) drug therapy
CPT/HCPCS: 36415; 80048; 80164; 85025

== ENCOUNTER → 2023-02-26 | Outpatient (REF) | payer MEDICAID, SELFPAY ==
[2023-02-26 09:35] LABS: ALB/GLOB Ratio 0.7 RATIO (0.9-2.4); AST(SGOT) 20 U/L (15-37); Alanine Aminotransfer ALT/SGPT 25 U/L (16-61); Albumin, Serum 2.8 g/dL (3.2-5.0); Alkaline Phosphatase 65 U/L (45-117); Anion Gap 6 (5-15); BUN 21 mg/dL (7-18); BUN/Creat Ratio 26.4 RATIO (10-20); Calcium,Total 9.2 mg/dL (8.5-10.1); Chloride 112 mmol/L (98-107); EST Glomerular Filtration Rate 103 mL/min (>60); Est Glom Filt Rate - Afr Amer 125 mL/min (>60); Globulin 3.9 g/dL (2.2-4.2); Glucose 101 mg/dL (74-106); Potassium 4.1 mmol/L (3.5-5.1); Protein, Total 6.7 g/dL (6.4-8.2); Sodium Level 143 mmol/L (136-145)
[2023-02-26 09:50] LABS: Valproic Acid (Depakene) Level 89 ug/mL (50-100)
== END | disposition home or self-care (01) ==
LOC: OLS.SW 05:00
PROVIDERS: PCP Internal Medicine; Visit Provider Internal Medicine
DX: Z79.01 Long term (current) use of anticoagulants (principal)
CPT/HCPCS: 36415; 80053; 80164; 82140

== ENCOUNTER → 2023-05-01 | Outpatient (REF) | payer MEDICAID, SELFPAY ==
[2023-05-01 08:14] LABS: Absolute Lymphocyte Count 5.56 X10^3/uL (0.83-4.51); Absolute Neutrophil Count 3.7 X10^3/uL (2.0-7.7); Basophil# 0.11 X10^3/uL; Eosinophils% 2.8 % (0-5); Hemoglobin 12.3 g/dL (13.0-16.5); Lymphocyte # 5.56 X10^3/ul (0.83-4.51); Lymphocyte % 51.7 % (19-41); Mean Corp Hgb Conc 32.4 g/dL (32-36); Mean Corpuscular Hgb 31.5 pg (27.0-32.0); Mean Corpuscular Volume 97.2 fL (80-94); Mean Platelet Vol. 11.2 fl (6.2-12.0); Monocyte# 1.01 X10^3/uL; Monocyte% 9.4 % (0-10); NRBC Flagged by Analyzer 0 % (0-5); Neutrophil # 3.69 X10^3/uL (2.7-7.7); Neutrophil % 34.4 % (47-70); POSITIVE DIFFERENTIAL YES; POSITIVE MORPHOLOGY YES; Platelet Count 177 K/mm3 (150-450); RBC Distribution Width CV 14.2 % (11.6-14.6); RBC Distribution Width SD 50.4 fl (35.1-43.9); Red Blood Count 3.91 M/mm3 (4.6-6.2); White Blood Count 10.8 K/mm3 (4.4-11.0)
[2023-05-01 08:20] LABS: Differential Indicated SCAN CRITERIA MET
[2023-05-01 08:54] LABS: Anion Gap 5 (5-15); BUN 19 mg/dL (7-18); BUN/Creat Ratio 21.7 RATIO (10-20); Calcium,Total 8.9 mg/dL (8.5-10.1); Chloride 111 mmol/L (98-107); Creatinine, Serum 0.88 mg/dL (0.70-1.30); EST Glomerular Filtration Rate 92 mL/min (>60); Est Glom Filt Rate - Afr Amer 112 mL/min (>60); Glucose 88 mg/dL (74-106); Sodium Level 140 mmol/L (136-145)
[2023-05-01 09:03] LABS: Differential Comment SCANNED
== END | disposition home or self-care (01) ==
LOC: OLS.SW 05:00
PROVIDERS: PCP Internal Medicine; Visit Provider Internal Medicine
DX: D64.9 Anemia, unspecified (principal); E87.6 Hypokalemia; K74.60 Unspecified cirrhosis of liver
CPT/HCPCS: 36415; 80048; 82140; 85025

== ENCOUNTER → 2023-05-18 | Outpatient (REF) | payer MEDICAID, SELFPAY ==
[2023-05-18 09:49] LABS: Anion Gap 3 (5-15); BUN 25 mg/dL (7-18); BUN/Creat Ratio 26.3 RATIO (10-20); Calcium,Total 9.9 mg/dL (8.5-10.1); Chloride 110 mmol/L (98-107); Creatinine, Serum 0.95 mg/dL (0.70-1.30); EST Glomerular Filtration Rate 84 mL/min (>60); Est Glom Filt Rate - Afr Amer 102 mL/min (>60); Glucose 99 mg/dL (74-106); Magnesium 2.6 mg/dL (1.6-2.6); Potassium 4.1 mmol/L (3.5-5.1); Sodium Level 140 mmol/L (136-145)
[2023-05-21 19:08] LABS: Lamotrigine (Lamictal) Level 12.6 ug/mL (2.0-20.0)
== END | disposition home or self-care (01) ==
LOC: OLS.SW 05:00
PROVIDERS: PCP Internal Medicine; Visit Provider Internal Medicine
DX: R60.9 Edema, unspecified (principal); Z79.899 Other long term (current) drug therapy
CPT/HCPCS: 36415; 80048; 82542; 83735

== ENCOUNTER → 2023-07-16 | Outpatient (REF) | payer MEDICAID, SELFPAY ==
[2023-07-16 09:58] LABS: Anion Gap 5 (5-15); BUN 16 mg/dL (7-18); BUN/Creat Ratio 16.3 RATIO (10-20); Calcium,Total 9.3 mg/dL (8.5-10.1); Chloride 107 mmol/L (98-107); Creatinine, Serum 0.98 mg/dL (0.70-1.30); EST Glomerular Filtration Rate 81 mL/min (>60); Est Glom Filt Rate - Afr Amer 98 mL/min (>60); Glucose 82 mg/dL (74-106); Potassium 4.2 mmol/L (3.5-5.1); Sodium Level 138 mmol/L (136-145)
== END | disposition home or self-care (01) ==
LOC: OLS.SW 05:00
PROVIDERS: PCP Internal Medicine; Visit Provider Internal Medicine
DX: D64.9 Anemia, unspecified (principal)
CPT/HCPCS: 36415; 80048

== ENCOUNTER → 2023-10-01 | Outpatient (REF) | payer MEDICAID, SELFPAY ==
[2023-10-01 08:49] LABS: Hematocrit 41.7 % (40-54); Hemoglobin 13.6 g/dL (13.0-16.5); Mean Corp Hgb Conc 32.6 g/dL (32-36); Mean Corpuscular Hgb 31.9 pg (27.0-32.0); Mean Corpuscular Volume 97.9 fL (80-94); Mean Platelet Vol. 11.9 fl (6.2-12.0); Platelet Count 211 K/mm3 (150-450); RBC Distribution Width CV 13.4 % (11.6-14.6); RBC Distribution Width SD 48.2 fl (35.1-43.9); Red Blood Count 4.26 M/mm3 (4.6-6.2); White Blood Count 11.5 K/mm3 (4.4-11.0)
== END | disposition home or self-care (01) ==
LOC: OLS.SW 05:00
PROVIDERS: PCP Internal Medicine; Visit Provider Internal Medicine
DX: D64.9 Anemia, unspecified (principal)
CPT/HCPCS: 36415; 85027

== ENCOUNTER → 2023-11-12 | Outpatient (REF) | payer MEDICAID, SELFPAY ==
[2023-11-12 08:30] LABS: Anion Gap 5 (5-15); BUN 16 mg/dL (7-18); BUN/Creat Ratio 14.2 RATIO (10-20); Calcium,Total 9.2 mg/dL (8.5-10.1); Chloride 109 mmol/L (98-107); Creatinine, Serum 1.13 mg/dL (0.70-1.30); EST Glomerular Filtration Rate 69 mL/min (>60); Est Glom Filt Rate - Afr Amer 83 mL/min (>60); Glucose 102 mg/dL (74-106); Potassium 4.5 mmol/L (3.5-5.1); Sodium Level 140 mmol/L (136-145); Vitamin D,25 Hydroxy 40.3 ng/mL
== END | disposition home or self-care (01) ==
LOC: OLS.SW 06:45
PROVIDERS: PCP Internal Medicine; Referring Provider Internal Medicine; Visit Provider Internal Medicine
DX: G40.919 Epilepsy, unspecified, intractable, without status epilepticus (principal); E55.9 Vitamin D deficiency, unspecified; K74.60 Unspecified cirrhosis of liver; E87.6 Hypokalemia; N17.1 Acute kidney failure with acute cortical necrosis
CPT/HCPCS: 36415; 80048; 82306

== ENCOUNTER → 2023-12-31 05:00 | Outpatient (REF) | payer MEDICAID, SELFPAY ==
[2023-12-31 10:14] LABS: Valproic Acid (Depakene) Level 48 ug/mL (50-100)
== END ==
LOC: OLS.SW 05:00
PROVIDERS: PCP Internal Medicine; Visit Provider Internal Medicine
DX: Z79.899 Other long term (current) drug therapy (principal)
CPT/HCPCS: 36415; 80164

== ENCOUNTER → 2024-01-28 | Outpatient (REF) | payer MEDICAID, SELFPAY ==
[2024-01-28 08:18] LABS: Hematocrit 45.8 % (40-54); Hemoglobin 14.6 g/dL (13.0-16.5); Mean Corp Hgb Conc 31.9 g/dL (32-36); Mean Corpuscular Hgb 31.3 pg (27.0-32.0); Mean Corpuscular Volume 98.1 fL (80-94); Mean Platelet Vol. 11.6 fl (6.2-12.0); Platelet Count 238 K/mm3 (150-450); RBC Distribution Width CV 13.8 % (11.6-14.6); RBC Distribution Width SD 49.7 fl (35.1-43.9); Red Blood Count 4.67 M/mm3 (4.6-6.2); White Blood Count 9.9 K/mm3 (4.4-11.0)
[2024-01-28 10:09] LABS: ALB/GLOB Ratio 0.8 RATIO (0.9-2.4); AST(SGOT) 26 U/L (15-37); Alanine Aminotransfer ALT/SGPT 26 U/L (16-61); Albumin, Serum 3.2 g/dL (3.2-5.0); Alkaline Phosphatase 69 U/L (45-117); Anion Gap 8 (5-15); BUN 17 mg/dL (7-18); BUN/Creat Ratio 16.7 RATIO (10-20); Calcium,Total 9.5 mg/dL (8.5-10.1); Chloride 108 mmol/L (98-107); Creatinine, Serum 1.02 mg/dL (0.70-1.30); EST Glomerular Filtration Rate 77 mL/min (>60); Est Glom Filt Rate - Afr Amer 94 mL/min (>60); Globulin 3.8 g/dL (2.2-4.2); Glucose 106 mg/dL (74-106); Magnesium 2.3 mg/dL (1.6-2.6); Potassium 4.2 mmol/L (3.5-5.1); Sodium Level 139 mmol/L (136-145)
== END | disposition home or self-care (01) ==
LOC: OLS.SW 05:00
PROVIDERS: PCP Internal Medicine; Visit Provider Internal Medicine
DX: G40.909 Epilepsy, unspecified, not intractable, without status epilepticus (principal); K74.60 Unspecified cirrhosis of liver; E87.6 Hypokalemia; N17.1 Acute kidney failure with acute cortical necrosis; E55.9 Vitamin D deficiency, unspecified
CPT/HCPCS: 36415; 80053; 83735; 85027

== ENCOUNTER → 2024-01-29 | Outpatient (REF) | payer MEDICAID, SELFPAY | END | disposition home or self-care (01) | LOC: OLS.SW 05:00 | PROVIDERS: PCP Internal Medicine; Visit Provider Internal Medicine | DX: K74.60 Unspecified cirrhosis of liver (principal); D59.9 Acquired hemolytic anemia, unspecified | CPT/HCPCS: 82140 ==

== ENCOUNTER → 2024-02-25 | Outpatient (REF) | payer MEDICAID, SELFPAY ==
[2024-02-25 10:18] LABS: ALB/GLOB Ratio 0.9 RATIO (0.9-2.4); AST(SGOT) 21 U/L (15-37); Alanine Aminotransfer ALT/SGPT 28 U/L (16-61); Alkaline Phosphatase 62 U/L (45-117); Anion Gap 5 (5-15); BUN 25 mg/dL (7-18); BUN/Creat Ratio 27.5 RATIO (10-20); Calcium,Total 9.1 mg/dL (8.5-10.1); Chloride 113 mmol/L (98-107); Creatinine, Serum 0.91 mg/dL (0.70-1.30); EST Glomerular Filtration Rate 88 mL/min (>60); Est Glom Filt Rate - Afr Amer 107 mL/min (>60); Globulin 3.5 g/dL (2.2-4.2); Glucose 96 mg/dL (74-106); Potassium 3.7 mmol/L (3.5-5.1); Protein, Total 6.5 g/dL (6.4-8.2); Sodium Level 143 mmol/L (136-145)
== END | disposition home or self-care (01) ==
LOC: OLS.SW 08:10
PROVIDERS: PCP Internal Medicine; Referring Provider Internal Medicine; Visit Provider Internal Medicine
DX: D64.9 Anemia, unspecified (principal); N17.9 Acute kidney failure, unspecified; K74.60 Unspecified cirrhosis of liver
CPT/HCPCS: 36415; 80053; 82140

== ENCOUNTER → 2024-06-02 04:00 | Outpatient (REF) | payer MEDICAID, SELFPAY ==
[2024-06-02 09:42] LABS: Absolute Lymphocyte Count 2.29 X10^3/uL (0.83-4.51); Absolute Neutrophil Count 1.9 X10^3/uL (2.0-7.7); Basophil# 0.06 X10^3/uL; Basophil% 1.1 % (0-1); Eosinophil# 0.04 X10^3/uL; Eosinophils% 0.8 % (0-5); Hematocrit 43.4 % (40-54); Hemoglobin 13.9 g/dL (13.0-16.5); Lymphocyte # 2.29 X10^3/ul (0.83-4.51); Lymphocyte % 43.3 % (19-41); Mean Corpuscular Hgb 30.9 pg (27.0-32.0); Mean Corpuscular Volume 96.4 fL (80-94); Mean Platelet Vol. 11.8 fl (6.2-12.0); Monocyte# 0.97 X10^3/uL; Monocyte% 18.3 % (0-10); NRBC Flagged by Analyzer 0 % (0-5); Neutrophil # 1.91 X10^3/uL (2.7-7.7); Neutrophil % 36.1 % (47-70); Platelet Count 149 K/mm3 (150-450); RBC Distribution Width CV 13.2 % (11.6-14.6); RBC Distribution Width SD 47.5 fl (35.1-43.9); White Blood Count 5.3 K/mm3 (4.4-11.0)
[2024-06-02 09:55] LABS: Valproic Acid (Depakene) Level 86 ug/mL (50-100)
[2024-06-02 10:02] LABS: Hemoglobin A1c 5.3 % (3.8-5.6)
[2024-06-02 10:29] LABS: ALB/GLOB Ratio 0.7 RATIO (0.9-2.4); AST(SGOT) 61 U/L (15-37); Alanine Aminotransfer ALT/SGPT 45 U/L (16-61); Albumin, Serum 2.8 g/dL (3.2-5.0); Alkaline Phosphatase 46 U/L (45-117); Anion Gap 7 (5-15); BUN 27 mg/dL (7-18); BUN/Creat Ratio 29.2 RATIO (10-20); Calcium,Total 9.2 mg/dL (8.5-10.1); Chloride 108 mmol/L (98-107); Creatinine, Serum 0.92 mg/dL (0.70-1.30); EST Glomerular Filtration Rate 87 mL/min (>60); Est Glom Filt Rate - Afr Amer 105 mL/min (>60); Globulin 3.9 g/dL (2.2-4.2); Glucose 95 mg/dL (74-106); Magnesium 2.7 mg/dL (1.6-2.6); Potassium 3.6 mmol/L (3.5-5.1); Protein, Total 6.7 g/dL (6.4-8.2); Sodium Level 142 mmol/L (136-145)
[2024-06-04 16:08] LABS: Lamotrigine (Lamictal) Level 16.4 ug/mL (2.0-20.0)
== END ==
LOC: OLS.SW 04:00
PROVIDERS: PCP Internal Medicine; Referring Provider Internal Medicine; Visit Provider Internal Medicine
DX: G40.919 Epilepsy, unspecified, intractable, without status epilepticus (principal)
CPT/HCPCS: 36415; 80053; 80164; 82542; 83036; 83735; 85025

== ENCOUNTER → 2025-01-15 | Outpatient (REF) | payer MEDICAID, SELFPAY ==
[2025-01-15 09:34] LABS: Hematocrit 40.0 % (40-54); Hemoglobin 13.2 g/dL (13.0-16.5); Mean Corp Hgb Conc 33.0 g/dL (32-36); Mean Corpuscular Volume 97.1 fL (80-94); Mean Platelet Vol. 11.5 fl (6.2-12.0); Platelet Count 202 K/mm3 (150-450); RBC Distribution Width CV 12.8 % (11.6-14.6); RBC Distribution Width SD 46.0 fl (35.1-43.9); Red Blood Count 4.12 M/mm3 (4.6-6.2); White Blood Count 8.2 K/mm3 (4.4-11.0)
[2025-01-15 09:49] LABS: Anion Gap 10 (5-15); BUN 21 mg/dL (4-19); BUN/Creat Ratio 22.1 RATIO (10-20); Calcium,Total 8.8 mg/dL (7.6-11.0); Carbon Dioxide 22.8 mmol/L (21.0-32.0); Chloride 107 mmol/L (98-108); Glucose 98 mg/dL (70-99); Magnesium 2.6 mg/dL (1.5-2.2); Potassium 4.2 mmol/L (3.3-5.1)
== END | disposition home or self-care (01) ==
LOC: OLS.SW 06:40
PROVIDERS: PCP Internal Medicine; Visit Provider Internal Medicine
DX: D64.9 Anemia, unspecified (principal)
CPT/HCPCS: 36415; 80048; 83735; 85027

== ENCOUNTER → 2025-02-19 05:00 | Outpatient (REF) | payer MEDICAID, SELFPAY ==
--- OUTSIDE RECORDS SUMMARY | 2025-02-19 05:21 | XMS RPT_ITS | CCD ---
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 Name Role Phone Ari Valles II Unavailable Unavailable Unavailable Unavailable Unavailable Unavailable Primary Care Provider Unavailabl e Gualvinoa Beth Primary Care Unavailable Gudla OLS, Beth Referring Unavailable Gudla OLS, Beth Attending Unavailable Gudla, Beth Primary Care Unavailable Gudla OLS, Beth Referring Unavailable Gudla OLS, Beth Attending Unavailable Gudla, Beth Primary Care Unavailable Gudla OLS, Beth Attending Unavailable Allergies Allergy Classification Reported Allergen(s) Allergy Type Date of Onset Reaction(s) Facility Anti-Epileptic Agents (1 source) levETIRAcetam Drug Allergy 1 [facility] Benzodiazepines (1 source) cloBAZam Drug Allergy 1 [facility] Camphor (1 source) Camphor Drug Allergy 1 [facility] Camphor / Eucalyptus extract / Menthol (1 source) Camphor / Eucalyptus extract / Menthol Drug Allergy 1 [facility] Eucalyptus oil (1 source) Eucalyptus oil Drug Allergy 1 [facility] Turpentine (1 source) Turpentine Drug Allergy 1 [facility] Unclassified (1 source) White Petrolatum Propensity to adverse reactions to drug 1 [facility] (16 sources) cloBAZam Drug Allergy 1 Other [facility] (17 sources) levETIRAcetam; Translations: [levetiracetam] Drug Allergy 1 Other [facility] (1 source) Camphor Crystals Allergy to drug (finding) [facility] Work Phone: (1 source) Menthol Eucalyptus LIQD Allergy to drug (finding) [facility] Work Phone: (1 source) Turpentine Oil OIL Allergy to drug (finding) [facility] Work Phone: (15 sources) Camphor Drug Allergy 1 Other [facility] (15 sources) Eucalyptus extract Drug Allergy 1 Other [facility] (16 sources) Eucalyptus oil; Translations: [eucalyptus oil] Drug Allergy 1 Other [facility] (15 sources) Menthol Drug Allergy 1 [facility] (15 sources) Turpentine Drug Allergy 1 [facility] (16 sources) petrolatum,white; Translations: [petrolatum,white ] Allergy to substance 1 Other [facility] (1 source) Camphor Drug Allergy 1 [facility] Repository (1 source) cloBAZam Drug Allergy 1 [facility] (1 source) Eucalyptus extract Drug Allergy 1 [facility] (1 source) Menthol Drug Allergy 1 [facility] (1 source) turpentine oil Drug allergy (disorder) 1 [facility] Medications Current Medications Medication Drug Class(es) Dates Sig (Normalized) Sig (Original) Acetaminophen (1 source) Start: 08-26-2020 acetaminophen (TYLENOL) tablet 650 mg bisacodyl 10 mg rectal suppository (15 sources) Stimulant Laxative Start: 10-20-2020 Bisacodyl Active 10 MG RC DAILY October 20, 2020 12:00am calcium carbonate 1250 mg / cholecalciferol 200 unt oral tablet (17 sources) Vitamin D Start: 08-26-2020 calcium-cholecalcif marylu 500-200 MG-UNIT per tablet 1 tablet Start: 01-05-2020 Calcium Carbon ate-Vitamin D3 Active 1 EACH PO BID@0800January 05, 2020 12:00am take 1 tablet by dean th once daily calcium-vitamin D (OSCAL-500) 500-200 MG-UNIT per tablet Take 1 tablet by mouth daily 0 Active docusate sodium 100 mg oral capsule (2 sources) Start: 08-26-2020 take 100 mg by mouth once daily as needed for constipation 100 mg, Oral, DAILY PRN, Constipation, Starting [facility] 08/26/20 at 0119 Do not crush or break. doxycycline monohydrate 100 mg oral tablet (15 sources) Tetracycline-c lass Drug Start: 10-23-2020 take 100 mg by mouth twice daily Doxycycline Monohydrate Active 100 MG PO TWICE A DAY October 23, 2020 12:00am ferrous sulfate 325 mg oral tablet (15 sources) Start: 10-23-2020 take 325 mg by mouth twice daily Ferrous Sulfate Active 325 MG PO TWICE A DAY October 23, 2020 12:00am start this medication after patient completes doxycycline lactulose 667 mg/ml oral solution (15 sources) Osmotic Laxative Start: 10-20-2020 take 1 mL by mouth at bedtime Lactulose Active 30 ML PO AT BEDTIME October 20, 2020 12:00am lamoTRIgine 100 mg oral tablet (18 sources) Mood Stabilizer, Anti-epileptic Agent Start: 08-26-2020 take 100 mg by mouth once daily 100 mg, Oral, DAILY, First dose on Rosa M 08/26/20 at 0900 Start: 10-16-2019 take 100 mg by mouth once donya y Lamotrigine Active 100 MG PO DAILY@0800 October 16, 2019 12:00am lidocaine 0.05 mg/mg medicated patch (15 sources) Antiarrhythmic, Amide Local Anesthetic Start: 10-20-2020 apply 1 dose topically once daily Lidocaine (Lidoderm) 5 % Adhesive Patch,Medicated Active 1 PATCH TOPICAL DAILY October 20, 2020 12:00am mirtazapine 15 mg oral tablet (15 sources) Start: 10-20-2020 take 7.5 mg by mouth once daily Mirtazapine (Remeron) 15 mg Tablet Active 7.5 MG PO DAILY October 20, 2020 12:00am Multiple Vitamins-Mineral s (THERAPEUTIC MULTIVITAMIN-MIN ERALS) tablet (1 source) take 1 tablet by mouth once daily Multiple Vitamins-Minerals (THERAPEUTIC MULTIVITAMIN-MINERAL S) tablet Take 1 tablet by mouth daily 0 Active Multivitamin-Iro n-Folic Acid (Certavite-Antio xidant) 18-400 mg-mcg Tablet (15 sources) Start: 10-20-2020 take 1 tablet by mouth once daily Dvgusiqyntvv-Lxvb-At lic Acid (Certavite-Antioxida nt) 18-400 mg-mcg Tablet Active 1 TABLET PO DAILY October 20, 2020 2:15am Start: 10-20-2020 take 1 tablet by dean th once daily Iomvhlxfarse-Gpqp-Mftgq Acid (Certavite-Antioxidant) 18-400 mg-mcg Tablet Active 1 TABLET PO DAILY October 19, 2020 11:00pm Start: 10-20-2020 take 1 tablet by dean th once daily Vtaogifavzod-Upio-Gkfat Acid (Certavite-Antioxidant) 18-400 mg-mcg Tablet Active 1 TABLET PO DAILY October 20, 2020 12:00am piperacillin 3000 mg / tazobactam 375 mg injection (1 source) Penicillin-class Antibacterial, beta Lactamase Inhibitor Start: 08-27-2020 piperacillin-tazobactam (ZOSYN) 3375 mg in dextrose 50 mL IVPB extended infusion (premix) polyethylene glycol 3350 18257 mg powder for oral solution (20 sources) Osmotic Laxative Start: 12-08-2019 End: 12-12-2019 take 17 g by mouth once daily for diarrhea Polyethylene Glycol 3350 Active 17 GM PO DAILY@0800 0 December 12, 2019 1:25pm hold for diarrhea potassium chloride 20 meq extended release oral tablet (15 sources) Start: 10-20-2020 take 20 mEq by mouth once daily Potassium Chloride Active 20 MEQ PO DAILY October 20, 2020 12:00am Promethazine (1 source) Phenothiazine Start: 08-26-2020 promethazine (PHENERGAN) tablet 12.5 mg sennosides, detention 8.6 mg oral tablet (17 sources) Start: 08-26-2020 take 1 tablet by mouth twice daily 8.6 mg (1 tablet), Oral, 2 TIMES DAILY, First dose on Rosa M 08/26/20 at 0145 Start: 12-08-2019 take 8.6 mg by mouth once daily Sennosides Active 8.6 MG PO DAILY@0800,1999December 08, 2019 12:00am 1000 ml sodium chloride 9 mg/ml injection (6 sources) Start: 08-26-2020 take 1 dose intravenously twice daily 5-40 mL, Intravenous, EVERY 12 HOURS SCHEDULED (2 times per day), First dose on Rosa M 08/26/20 at 0900 For Line Patency: Peripheral IV = 5 mL; Midline or Central Line = 10 mL/lumen. If following IV push medication, administer flush at same rate as the IV push. Flush volume is determined by type of infusion therapy being given. For non-viscous solutions use: Peripheral IV = 5 mL Midline or Central Line = 10 mL/lumen For viscous solutions (i.e. blood components, parenteral nutrition, contrast media, or after obtaining blood sample) use: Peripheral IV = 10 mL Midline or Central Line = 20 mL/lumen Start: 08-26-2020 End: 08-27-2020 0.9 % sodium chloride infusi on Start: 08-26-2020 take 25 mL intraveno usly every hour as needed 25 mL, Intravenous, at 100 mL/hr, PRN, If patient receiving piggyback infusions without ordered maintenance IV fluids or with frequent/long duration piggyback infusions, Starting [facility] 08/26/20 at 0119 Administer at the same rate as the piggyback being infused. Start: 08-26-2020 take 5-40 mL intrave nously once as needed 5-40 mL, Intravenous, PRN, Line Care, After every IV line use, Starting [facility] 08/26/20 at 0119 For Line Patency: Peripheral IV = 5 mL; Midline or Central Line = 10 mL/lumen. If following IV push medication, administer flush at same rate as the IV push. Flush volume is determined by type of infusion therapy being given. For non-viscous solutions use: Peripheral IV = 5 mL Midline or Central Line = 10 mL/lumen For viscous solutions (i.e. blood components, parenteral nutrition, contrast media, or after obtaining blood sample) use: Peripheral IV = 10 mL Midline or Central Line = 20 mL/lumen tamsulosin hydrochloride 0.4 mg oral capsule (19 sources) alpha-Adrenergic Norma Start: 12-08-2019 take 0.4 mg by mouth at bedtime Tamsulosin Active 0.4 MG PO AT BEDTIME December 08, 2019 12:00am therapeutic multivitamin-minera ls 1 tablet (1 source) Start: 08-26-2020 take 1 tablet by mouth once daily 1 tablet, Oral, DAILY, First dose on Sun08/26/20 at 0900 24 hr divalproex sodium 500 mg extended release oral tablet (20 sources) Mood Stabilizer, Anti-epileptic Agent Start: 08-26-2020 take 1500 mg by mouth once daily 1,500 mg, Oral, DAILY, First dose on Sun08/26/20 at 0900 Do not crush or break. Start: 12-08-2019 take 1500 mg by mout h once daily Divalproex Active 1500 MG PO DAILY@1999December 08, 2019 12:00am Start: 10-16-2019 End: 10-18-2019 take 500 mg by mouth once daily Divalproex Discontinue d 500 MG PO DAILY@0800 October 16, 2019 12:00am October 18, 2019 11:10am Start: 05-31-2018 End: 10-18-2019 take 1000 mg by mouth once daily Divalproex Discontinued 1000 MG PO DAILY@1699May 31, 2018 1:00am October 18, 2019 11:10am take 3 tablets by mo uth once daily divalproex (DEPAKOTE ER) 500 MG extended release tablet Take 1,500 mg by mouth daily 0 Active vitamin b6 100 mg oral tablet (17 sources) Start: 10-20-2020 take 100 mg by mouth once daily Pyridoxine (Vitamin B6) Active 100 MG PO DAILY October 20, 2020 12:00am Start: 08-26-2020 take 100 mg by mouth once donya y 100 mg, Oral, DAILY, First dose on Sun08/26/20 at 0900 zonisamide 100 mg oral capsule (18 sources) Anti-epileptic Agent Start: 08-26-2020 take 100 mg by mouth once daily 100 mg, Oral, DAILY, First dose on Sun08/26/20 at 0900 Start: 10-16-2019 take 100 mg by mouth twice daily Zonisamide Active 100 MG PO BID@0800,1999October 16, 2019 12:00am Completed/Discontinued Medications Medication Drug Class(es) Dates Sig (Normalized) Sig (Original) acetaminophen 325 mg / HYDROcodone bitartrate 5 mg oral tablet (20 sources) Opioid Agonist Start: 01-19-2020 End: 01-21-2020 take 1 tablet by mouth every six hours as needed Hydrocodone-Acetami nophen Discontinued 1 TABLET PO EVERY 6 HOURS NEEDED 6 2 January 19, 2020 January 21, 2020 12:02am Start: 10-20-2019 End: 10-25-2019 Hydrocodone-Acetaminophen Di scontinued 1 - 2 EACH PO EVERY 4 HOURS NEEDED 20 5 October 20, 2019 October 25, 2019 12:02am aluminm,mag tsg-dpcndex-fnehwg (15 sources) Start: 10-20-2020 End: 10-23-2020 take 1 mL by mouth every four hours aluminm,mag wkq-zxnpjaw-qjkogs Discontinued 30 ML SL/PO Q4H October 20, 2020 2:15am October 23, 2020 4:13pm Start: 10-20-2020 End: 10-23-2020 take 1 mL by mouth every four hours aluminm,mag pvi-yqbmwfp-uuwffa Discontinued 30 ML SL/PO Q4H October 19, 2020 11:00pm October 23, 2020 3:13pm Start: 10-20-2020 End: 10-23-2020 take 1 mL by mouth every four hours aluminm,mag tyj-gzcmvmb-qbxnjh Discontinued 30 ML SL/PO Q4H October 20, 2020 12:00am October 23, 2020 4:13pm amoxicillin 875 mg / clavulanate 125 mg oral tablet (15 sources) Penicillin-class Antibacterial Start: 12-12-2019 End: 12-17-2019 Amoxicillin-Pot Clavulanate Discontinued 875 MG PO TWICE A DAY 11 5 December 12, 2019 12:00am December 17, 2019 12:02am last dose on 12/16 evening guaiFENesin 20 mg/ml oral solution (15 sources) Start: 10-20-2020 End: 10-23-2020 take 200 mg by mouth every four hours Guaifenesin Discontinued 200 MG PO Q4H October 20, 2020 12:00am October 23, 2020 4:13pm Problems Active Problems Problem Classification Problem Date Documented Date Episodic/Chronic Bacterial infection; unspecified site (15 sources) Bacteremia due to Methicillin resistant Staphylococcus aureus; Translations: [Bacteremia] 10-21-2020 Episodic Biliary tract disease (20 sources) Calculus of gallbladder with cholecystitis; Translations: [Calculus of gallbladder with chronic cholecystitis without obstruction] 09-26-2020 Episodic Cardiac dysrhythmias (2 sources) Bradycardia; Translations: [Bradycardia, unspecified] Episodic Deficiency and other anemia (15 sources) Anemia; Translations: [Anemia, unspecified] 10-23-2020 Episodic Deficiency and other anemia (2 sources) Anemia, unspecified; Translations: [Anemia, unspecified] Onset: 05-16-2024 Episodic Developmental disorders (15 sources) Mental retardation 11-10-2021 Chronic Diseases of white blood cells (15 sources) Leukocytosis; Translations: [Elevated white blood cell count, unspecified] 10-20-2020 Chronic Epilepsy; convulsions (16 sources) Seizure disorder; Translations: [Epilepsy, unspecified, not intractable, without status epilepticus] Onset: 06-19-2024 01-19-2020 Chronic Fluid and electrolyte disorders (15 sources) Dehydration; Translations: [Dehydration] 09-26-2020 Episodic Genitourinary symptoms and ill-defined conditions (1 source) Urinary incontinence; Translations: [Urinary incontinence] Chronic Genitourinary symptoms and ill-defined conditions (1 source) Nocturia; Translations: [Nocturia] Episodic Hyperplasia of prostate (1 source) Benign prostatic hyperplasia; Translations: [Benign prostatic hyperplasia with lower urinary tract symptoms] Chronic Immunizations and screening for infectious disease (15 sources) Infectious disease carrier; Translations: [Carrier of other specified bacterial diseases] 10-23-2020 Episodic Nutritional deficiencies (15 sources) Undernutrition; Translations: [Unspecified protein-calorie malnutrition] 10-23-2020 Chronic Other aftercare (15 sources) Wound finding; Translations: [Encounter for other specified aftercare] 10-24-2019 Episodic Other liver diseases (1 source) Unspecified cirrhosis of liver; Translations: [Unspecified cirrhosis of liver] Onset: 05-16-2024 Chronic Other liver diseases (17 sources) Jaundice; Translations: [Unspecified jaundice] Onset: 08-26-2020 Episodic Other male genital disorders (15 sources) Torsion of testis; Translations: [Torsion of testis, unspecified] 12-08-2019 Episodic Other nutritional; endocrine; and metabolic disorders (15 sources) Hyperbilirubinemia; Translations: [Other disorders of bilirubin metabolism] 10-20-2020 Chronic Residual codes; unclassified (15 sources) Altered mental status; Translations: [Altered mental status, unspecified] 09-26-2020 Episodic Septicemia (except in labor) (15 sources) Sepsis; Translations: [Sepsis, unspecified organism] 12-19-2019 Episodic Skin and subcutaneous tissue infections (15 sources) Cellulitis of face; Translations: [Cellulitis of face] 10-20-2020 Episodic Sprains and strains (15 sources) Sprain of hip; Translations: [Unspecified sprain of unspecified hip, initial encounter] 10-14-2019 Episodic Urinary tract infections (20 sources) Urinary tract infectious disease; Translations: [Urinary tract infection, site not specified] 10-20-2020 Episodic Past or Other Problems Problem Classification Problem Date Documented Da te Episodic/Chronic Acute and unspecified renal failure (16 sources) Injury of kidney; Translations: [Acute kidney failure, unspecified] Onset: 05-16-2024 01-19-2020 Episodic Unclassified (15 sources) MRDD 11-10-2021 Unclassified (12 sources) history of jose m tube Onset: 04-23-2019 11-10-2021 NEGATED: Highlighted row has not occurred!Residual codes; unclassified (2 sources) Disease Episodic Results Test Name Value Interpretation Reference Range Facility Basic Metabolic Profile (BMP )on 01-15-2025 BUN/CRE 22.1 RATIO High 10-20 [facility] Comment on above: Performed By: #### L 100.0500, L500.2500, L501.5200 #### [facility] [address] [place], [address] Calcium [Mass/Vol] 8.8 mg/dL Normal 7.6-11.0 [facility] Comment on above: Performed By: #### L 100.0500, L500.2500, L501.5200 #### [facility] [address] [place], [address] Chloride [Moles/Vol] 107 mmol/L Normal 98-108 [facility] Comment on above: Performed By: #### L 100.0500, L500.2500, L501.5200 #### [facility] [address] [place], [address] CO2 [Moles/Vol] 22.8 mmol/L Normal 21.0-32.0 [facility] Comment on above: Performed By: #### L 100.0500, L500.2500, L501.5200 #### [facility] [address] [place], [address] Creatinine [Mass/Vol] 0.94 mg/dL Normal 0.70-1.20 [facility] Comment on above: Performed By: #### L 100.0500, L500.2500, L501.5200 #### [facility] [address] [place], [address] GAP 10 Normal 5-15 [facility] Comment on above: Performed By: #### L 100.0500, L500.2500, L501.5200 #### [facility] [address] [place], [address] GFR/1.73 sq M.predicted among non-blacks MDRD (S/P/Bld) [Vol rate/Area] 88 mL/min/{1.73_m2} Normal >60 [facility] Comment on above: Result Comment: mL/m in/1.73m2 CKD-EPI Creatinine Equation (2020) Performed By: #### L 100.0500, L500.2500, L501.5200 #### [facility] [address] [place], [address] Glucose [Mass/Vol] 98 mg/dL Normal 70-99 [facility] Comment on above: Performed By: #### L 100.0500, L500.2500, L501.5200 #### [facility] [address] [place] [place], [address] Potassium [Moles/Vol] 4.2 mmol/L Normal 3.3-5.1 [facility] Comment on above: Performed By: #### L 100.0500, L500.2500, L501.5200 #### [facility] [address] [place], [address] Sodium [Moles/Vol] 140 mmol/L Normal 133-145 [facility] Comment on above: Performed By: #### L 100.0500, L500.2500, L501.5200 #### [facility] [address] [place], [address] Urea nitrogen [Mass/Vol] 21 mg/dL High 4-19 [facility] Comment on above: Performed By: #### L 100.0500, L500.2500, L501.5200 #### [facility] [address] [place], [address] CBC-Complete Blood Cnt No Di ffon 01-15-2025 Erythrocyte distribution width (RBC) [Ratio] 12.8 % Normal 11.6-14.6 [facility] Comment on above: Performed By: #### L 100.0500, L500.2500, L501.5200 #### [facility] [address] [place], [address] Hematocrit (Bld) [Volume fraction] 40.0 % Normal 40-54 [facility] Comment on above: Performed By: #### L 100.0500, L500.2500, L501.5200 #### [facility] [address] [place], [address] Hemoglobin (Bld) [Mass/Vol] 13.2 g/dL Normal 13.0-16.5 [facility] Comment on above: Performed By: #### L 100.0500, L500.2500, L501.5200 #### [facility] [address] [place], [address] MCH (RBC) [Entitic mass] 32.0 pg Normal 27.0-32.0 [facility] Comment on above: Performed By: #### L 100.0500, L500.2500, L501.5200 #### [facility] [address] [place], [address] MCHC (RBC) [Mass/Vol] 33.0 g/dL Normal 32-36 [facility] Comment on above: Performed By: #### L 100.0500, L500.2500, L501.5200 #### [facility] [address] [place], [address] MCV (RBC) [Entitic vol] 97.1 fL High 80-94 [facility] Comment on above: Performed By: #### L 100.0500, L500.2500, L501.5200 #### [facility] [address] [place], [address] Platelet mean volume (Bld) [Entitic vol] 11.5 fL Normal 6.2-12.0 [facility] Comment on above: Performed By: #### L 100.0500, L500.2500, L501.5200 #### [facility] [address] [place], [address] Platelets (Bld) [#/Vol] 202 10*3/uL Normal 150-450 [facility] Comment on above: Performed By: #### L 100.0500, L500.2500, L501.5200 #### [facility] [address] [place], [address] RBC (Bld) [#/Vol] 4.12 10*6/uL Low 4.6-6.2 [facility] Comment on above: Performed By: #### L 100.0500, L500.2500, L501.5200 #### [facility] [address] [place], [address] RDW SD 46.0 fl High 35.1-43.9 [facility] Comment on above: Performed By: #### L 100.0500, L500.2500, L501.5200 #### [facility] [address] [place], [address] WBC (Bld) [#/Vol] 8.2 10*3/uL Normal 4.4-11.0 [facility] Comment on above: Performed By: #### L 100.0500, L500.2500, L501.5200 #### [facility] [address] [place], [address] Magnesiumon 01-15-2025 Magnesium [Mass/Vol] 2.6 mg/dL High 1.5-2.2 [facility] Comment on above: Performed By: #### L 100.0500, L500.2500, L501.5200 #### [facility] [address] [place], [address] Lamotrigine (Lamictal) Level on 06-04-2024 LAMOTRIGINE 16.4 ug/mL Normal 2.0-20.0 [facility] Comment on above: Order Comment: 304.1 Result Comment: Dete ction Limit = 1.0 Performed at: [address] [id number] Rag Boiler: Keyona Rodriguez MD, Phone: [phone] Performed By: #### L 501.8100, L500.4050, L3300.4400, L501.9985, L501.5200, L100.0100 #### [facility] [address] [place], [address] CBC W/Diff, Automatedon 05-24 Absolute Lymph 2.29 X10 3/uL Normal 0.83-4.51 [facility] Comment on above: Order Comment: 304.1 Performed By: #### L 501.8100, L500.4050, L3300.4400, L501.9985, L501.5200, L100.0100 #### [facility] [address] [place], [address] Absolute Neut 1.9 X10 3/uL Low 2.0-7.7 [facility] Comment on above: Order Comment: 304.1 Performed By: #### L 501.8100, L500.4050, L3300.4400, L501.9985, L501.5200, L100.0100 #### [facility] [address] [place], [address] Basophils/100 WBC (Bld) 1.1 % High 0-1 [facility] Comment on above: Order Comment: 304.1 Performed By: #### L 501.8100, L500.4050, L3300.4400, L501.9985, L501.5200, L100.0100 #### [facility] [address] [place], [address] Eosinophils/100 WBC (Bld) 0.8 % Normal 0-5 [facility] Comment on above: Order Comment: 304.1 Performed By: #### L 501.8100, L500.4050, L3300.4400, L501.9985, L501.5200, L100.0100 #### [facility] [address] [place], [address] Erythrocyte distribution width (RBC) [Ratio] 13.2 % Normal 11.6-14.6 [facility] Comment on above: Order Comment: 304.1 Performed By: #### L 501.8100, L500.4050, L3300.4400, L501.9985, L501.5200, L100.0100 #### [facility] [address] [place], [address] Hematocrit (Bld) [Volume fraction] 43.4 % Normal 40-54 [facility] Comment on above: Order Comment: 304.1 Performed By: #### L 501.8100, L500.4050, L3300.4400, L501.9985, L501.5200, L100.0100 #### [facility] [address] [place], [address] Hemoglobin (Bld) [Mass/Vol] 13.9 g/dL Normal 13.0-16.5 [facility] Comment on above: Order Comment: 304.1 Performed By: #### L 501.8100, L500.4050, L3300.4400, L501.9985, L501.5200, L100.0100 #### [facility] [address] [place], [address] IG% 0.400 Normal 0.0-0.9 [facility] Comment on above: Order Comment: 304.1 Result Comment: IG% - Immature Granulocytes (promyelocytes, myelocytes and metamyelocytes) > 1% indicates that a LEFT SHIFT is Present. Performed By: #### L 501.8100, L500.4050, L3300.4400, L501.9985, L501.5200, L100.0100 #### [facility] [address] [place], [address] Lymphocytes/100 WBC (Bld) 43.3 % High 19-41 [facility] Comment on above: Order Comment: 304.1 Performed By: #### L 501.8100, L500.4050, L3300.4400, L501.9985, L501.5200, L100.0100 #### [facility] [address] [place], [address] MCH (RBC) [Entitic mass] 30.9 pg Normal 27.0-32.0 [facility] Comment on above: Order Comment: 304.1 Performed By: #### L 501.8100, L500.4050, L3300.4400, L501.9985, L501.5200, L100.0100 #### [facility] [address] [place], [address] MCHC (RBC) [Mass/Vol] 32.0 g/dL Normal 32-36 [facility] Comment on above: Order Comment: 304.1 Performed By: #### L 501.8100, L500.4050, L3300.4400, L501.9985, L501.5200, L100.0100 #### [facility] [address] [place], [address] MCV (RBC) [Entitic vol] 96.4 fL High 80-94 [facility] Comment on above: Order Comment: 304.1 Performed By: #### L 501.8100, L500.4050, L3300.4400, L501.9985, L501.5200, L100.0100 #### [facility] [address] [place], [address] Monocytes/100 WBC (Bld) 18.3 % High 0-10 [facility] Comment on above: Order Comment: 304.1 Performed By: #### L 501.8100, L500.4050, L3300.4400, L501.9985, L501.5200, L100.0100 #### [facility] [address] [place], [address] Neutrophils/100 WBC (Bld) 36.1 % Low 47-70 [facility] Comment on above: Order Comment: 304.1 Performed By: #### L 501.8100, L500.4050, L3300.4400, L501.9985, L501.5200, L100.0100 #### [facility] [address] [place], [address] Nucleated RBC (Bld) [#/Vol] 0 10*3/uL Normal 0-5 [facility] Comment on above: Order Comment: 304.1 Performed By: #### L 501.8100, L500.4050, L3300.4400, L501.9985, L501.5200, L100.0100 #### [facility] [address] [place], [address] Platelet mean volume (Bld) [Entitic vol] 11.8 fL Normal 6.2-12.0 [facility] Comment on above: Order Comment: 304.1 Performed By: #### L 501.8100, L500.4050, L3300.4400, L501.9985, L501.5200, L100.0100 #### [facility] [address] [place], [address] Platelets (Bld) [#/Vol] 149 10*3/uL Low 150-450 [facility] Comment on above: Order Comment: 304.1 Performed By: #### L 501.8100, L500.4050, L3300.4400, L501.9985, L501.5200, L100.0100 #### [facility] [address] [place], [address] RBC (Bld) [#/Vol] 4.50 10*6/uL Low 4.6-6.2 [facility] Comment on above: Order Comment: 304.1 Performed By: #### L 501.8100, L500.4050, L3300.4400, L501.9985, L501.5200, L100.0100 #### [facility] [address] [place], [address] RDW SD 47.5 fl High 35.1-43.9 [facility] Comment on above: Order Comment: 304.1 Performed By: #### L 501.8100, L500.4050, L3300.4400, L501.9985, L501.5200, L100.0100 #### [facility] [address] [place], [address] WBC (Bld) [#/Vol] 5.3 10*3/uL Normal 4.4-11.0 [facility] Comment on above: Order Comment: 304.1 Performed By: #### L 501.8100, L500.4050, L3300.4400, L501.9985, L501.5200, L100.0100 #### [facility] [address] [place], [address] Comprehensive Metabolic Prof ilon 06-02-2024 Albumin [Mass/Vol] 2.8 g/dL Low 3.2-5.0 [facility] Comment on above: Order Comment: 304.1 Performed By: #### L 501.8100, L500.4050, L3300.4400, L501.9985, L501.5200, L100.0100 #### [facility] [address] [place], [address] Albumin/Globulin [Mass ratio] 0.7 {ratio} Low 0.9-2.4 [facility] Comment on above: Order Comment: 304.1 Performed By: #### L 501.8100, L500.4050, L3300.4400, L501.9985, L501.5200, L100.0100 #### [facility] [address] [place], [address] ALK P 46 U/L Normal 45-117 [facility] Comment on above: Order Comment: 304.1 Performed By: #### L 501.8100, L500.4050, L3300.4400, L501.9985, L501.5200, L100.0100 #### [facility] [address] [place], [address] ALT [Catalytic activity/Vol] 45 U/L Normal 16-61 [facility] Comment on above: Order Comment: 304.1 Performed By: #### L 501.8100, L500.4050, L3300.4400, L501.9985, L501.5200, L100.0100 #### [facility] [address] [place], [address] AST [Catalytic activity/Vol] 61 U/L High 15-37 [facility] Comment on above: Order Comment: 304.1 Performed By: #### L 501.8100, L500.4050, L3300.4400, L501.9985, L501.5200, L100.0100 #### [facility] [address] [place], [address] Bilirubin [Mass/Vol] 0.40 mg/dL Normal 0.20-1.00 [facility] Comment on above: Order Comment: 304.1 Result Comment: For patients on eltrombopag therapy, use of Dimension [place] TBIL is not recommended. Performed By: #### L 501.8100, L500.4050, L3300.4400, L501.9985, L501.5200, L100.0100 #### [facility] [address] [place], [address] BUN/CRE 29.2 RATIO High 10-20 [facility] Comment on above: Order Comment: 304.1 Performed By: #### L 501.8100, L500.4050, L3300.4400, L501.9985, L501.5200, L100.0100 #### [facility] [address] [place], [address] CA,Total 9.2 mg/dL Normal 8.5-10.1 [facility] Comment on above: Order Comment: 304.1 Performed By: #### L 501.8100, L500.4050, L3300.4400, L501.9985, L501.5200, L100.0100 #### [facility] [address] [place], [address] Chloride [Moles/Vol] 108 mmol/L High 98-107 [facility] Comment on above: Order Comment: 304.1 Performed By: #### L 501.8100, L500.4050, L3300.4400, L501.9985, L501.5200, L100.0100 #### [facility] [address] [place], [address] CO2 [Moles/Vol] 27.0 mmol/L Normal 21.0-32.0 [facility] Comment on above: Order Comment: 304.1 Performed By: #### L 501.8100, L500.4050, L3300.4400, L501.9985, L501.5200, L100.0100 #### [facility] [address] [place], [address] Creatinine [Mass/Vol] 0.92 mg/dL Normal 0.70-1.30 [facility] Comment on above: Order Comment: 304.1 Result Comment: The validity of the calculated GFR GFRAA in patients over 70 years has not been determined. Clinical correlation is essential. Performed By: #### L 501.8100, L500.4050, L3300.4400, L501.9985, L501.5200, L100.0100 #### [facility] [address] [place], [address] EST GFR - AA 105 mL/min Normal >60 [facility] Comment on above: Order Comment: 304.1 Result Comment: Afri can [place] GFR Calc Performed By: #### L 501.8100, L500.4050, L3300.4400, L501.9985, L501.5200, L100.0100 #### [facility] [address] [place], [address] GAP 7 Normal 5-15 [facility] Comment on above: Order Comment: 304.1 Performed By: #### L 501.8100, L500.4050, L3300.4400, L501.9985, L501.5200, L100.0100 #### [facility] [address] [place], [address] GFR/1.73 sq M.predicted among non-blacks MDRD (S/P/Bld) [Vol rate/Area] 87 mL/min/{1.73_m2} Normal >60 [facility] Comment on above: Order Comment: 304.1 Result Comment: Non- GFR Calc Performed By: #### L 501.8100, L500.4050, L3300.4400, L501.9985, L501.5200, L100.0100 #### [facility] [address] [place], [address] Globulin (S) [Mass/Vol] 3.9 g/dL Normal 2.2-4.2 [facility] Comment on above: Order Comment: 304.1 Performed By: #### L 501.8100, L500.4050, L3300.4400, L501.9985, L501.5200, L100.0100 #### [facility] [address] [place], [address] Glucose [Mass/Vol] 95 mg/dL Normal 74-106 [facility] Comment on above: Order Comment: 304.1 Performed By: #### L 501.8100, L500.4050, L3300.4400, L501.9985, L501.5200, L100.0100 #### [facility] [address] [place], [address] Potassium [Moles/Vol] 3.6 mmol/L Normal 3.5-5.1 [facility] Comment on above: Order Comment: 304.1 Performed By: #### L 501.8100, L500.4050, L3300.4400, L501.9985, L501.5200, L100.0100 #### [facility] [address] [place], [address] Sodium [Moles/Vol] 142 mmol/L Normal 136-145 [facility] Comment on above: Order Comment: 304.1 Performed By: #### L 501.8100, L500.4050, L3300.4400, L501.9985, L501.5200, L100.0100 #### [facility] [address] [place], [address] T PROT 6.7 g/dL Normal 6.4-8.2 [facility] Comment on above: Order Comment: 304.1 Performed By: #### L 501.8100, L500.4050, L3300.4400, L501.9985, L501.5200, L100.0100 #### [facility] [address] [place], [address] Urea nitrogen [Mass/Vol] 27 mg/dL High 7-18 [facility] Comment on above: Order Comment: 304.1 Performed By: #### L 501.8100, L500.4050, L3300.4400, L501.9985, L501.5200, L100.0100 #### [facility] [address] [place], [address] Hemoglobin A1con 06-02-2024 HbA1c (Bld) [Mass fraction] 5.3 % Normal 3.8-5.6 [facility] Comment on above: Order Comment: 304.1 Result Comment: Norm al < 5.7 % Prediabetic 5.7 - 6.4 % Diabetic >or= 6.5 % Please note range changes. Performed By: #### L 501.8100, L500.4050, L3300.4400, L501.9985, L501.5200, L100.0100 #### [facility] [address] [place], [address] Magnesiumon 06-02-2024 Magnesium [Mass/Vol] 2.7 mg/dL High 1.6-2.6 [facility] Comment on above: Order Comment: 304.1 Performed By: #### L 501.8100, L500.4050, L3300.4400, L501.9985, L501.5200, L100.0100 #### [facility] [address] [place], [address] Valproic Acid (Depakene) Lev gil 06-02-2024 VALPROIC ACID 86 ug/mL Normal 50-100 [facility] Comment on above: Order Comment: 304.1 Performed By: #### L 501.8100, L500.4050, L3300.4400, L501.9985, L501.5200, L100.0100 #### [facility] [address] [place], [address] Ammoniaon 02-25-2024 Ammonia (P) [Moles/Vol] 25.0 umol/L Normal 11-32 [facility] Comment on above: Performed By: #### L 500.4050, L503.5510 #### [facility] [address] [place], [address] Comprehensive Metabolic Prof ilon 02-25-2024 Albumin [Mass/Vol] 3.0 g/dL Low 3.2-5.0 [facility] Comment on above: Performed By: #### L 100.0500, L500.2500, L501.5200 #### [facility] [address] [place], [address] Albumin/Globulin [Mass ratio] 0.9 {ratio} Normal 0.9-2.4 [facility] Comment on above: Performed By: #### L 100.0500, L500.2500, L501.5200 #### [facility] [address] [place], [address] ALK P 62 U/L Normal 45-117 [facility] Comment on above: Performed By: #### L 100.0500, L500.2500, L501.5200 #### [facility] [address] [place], [address] ALT [Catalytic activity/Vol] 28 U/L Normal 16-61 [facility] Comment on above: Performed By: #### L 100.0500, L500.2500, L501.5200 #### [facility] [address] [place], [address] AST [Catalytic activity/Vol] 21 U/L Normal 15-37 [facility] Comment on above: Performed By: #### L 100.0500, L500.2500, L501.5200 #### [facility] [address] [place], [address] Bilirubin [Mass/Vol] 0.40 mg/dL Normal 0.20-1.00 [facility] Comment on above: Result Comment: For patients on eltrombopag therapy, use of Dimension [place] TBIL is not recommended. Performed By: #### L 100.0500, L500.2500, L501.5200 #### [facility] [address] [place], [address] BUN/CRE 27.5 RATIO High 10-20 [facility] Comment on above: Performed By: #### L 100.0500, L500.2500, L501.5200 #### [facility] [address] [place], [address] CA,Total 9.1 mg/dL Normal 8.5-10.1 [facility] Comment on above: Performed By: #### L 100.0500, L500.2500, L501.5200 #### [facility] [address] [place], [address] Chloride [Moles/Vol] 113 mmol/L High 98-107 [facility] Comment on above: Performed By: #### L 100.0500, L500.2500, L501.5200 #### [facility] [address] [place], [address] CO2 [Moles/Vol] 25.0 mmol/L Normal 21.0-32.0 [facility] Comment on above: Performed By: #### L 100.0500, L500.2500, L501.5200 #### [facility] [address] [place], [address] Creatinine [Mass/Vol] 0.91 mg/dL Normal 0.70-1.30 [facility] Comment on above: Result Comment: The validity of the calculated GFR GFRAA in patients over 70 years has not been determined. Clinical correlation is essential. Performed By: #### L 100.0500, L500.2500, L501.5200 #### [facility] [address] [place], [address] EST GFR - AA 107 mL/min Normal >60 [facility] Comment on above: Result Comment: Afri can [place] GFR Calc Performed By: #### L 100.0500, L500.2500, L501.5200 #### [facility] [address] [place], [address] GAP 5 Normal 5-15 [facility] Comment on above: Performed By: #### L 100.0500, L500.2500, L501.5200 #### [facility] [address] [place], [address] GFR/1.73 sq M.predicted among non-blacks MDRD (S/P/Bld) [Vol rate/Area] 88 mL/min/{1.73_m2} Normal >60 [facility] Comment on above: Result Comment: Non- GFR Calc Performed By: #### L 100.0500, L500.2500, L501.5200 #### [facility] [address] [place], [address] Globulin (S) [Mass/Vol] 3.5 g/dL Normal 2.2-4.2 [facility] Comment on above: Performed By: #### L 100.0500, L500.2500, L501.5200 #### [facility] [address] [place], [address] Glucose [Mass/Vol] 96 mg/dL Normal 74-106 [facility] Comment on above: Performed By: #### L 100.0500, L500.2500, L501.5200 #### [facility] [address] [place], [address] Potassium [Moles/Vol] 3.7 mmol/L Normal 3.5-5.1 [facility] Comment on above: Performed By: #### L 100.0500, L500.2500, L501.5200 #### [facility] [address] [place], [address] Sodium [Moles/Vol] 143 mmol/L Normal 136-145 [facility] Comment on above: Performed By: #### L 100.0500, L500.2500, L501.5200 #### [facility] [address] [place], [address] T PROT 6.5 g/dL Normal 6.4-8.2 [facility] Comment on above: Performed By: #### L 100.0500, L500.2500, L501.5200 #### [facility] [address] [place], [address] Urea nitrogen [Mass/Vol] 25 mg/dL High 7-18 [facility] Comment on above: Performed By: #### L 100.0500, L500.2500, L501.5200 #### [facility] [address] [place], [address] Basophil percentageOrdered B y: Beth Ventura on 07-16-2023 Chloride [Moles/Vol] 107 mmol/L 98-107 [facility] Glucose [Mass/Vol] 82 mg/dL 74-106 [facility] Potassium [Moles/Vol] 4.2 mmol/L 3.5-5.1 [facility] Sodium [Moles/Vol] 138 mmol/L 136-145 [facility] - Chemistry and C hemistry - challengeOrdered By: Beth Ventura on 07-16-2023 CO2 [Moles/Vol] 26.0 mmol/L 21.0-32.0 [facility] Urea nitrogen/Creatinine [Mass ratio] 16.3 mg/mg 10-20 [facility] No Panel InformationOrdered By: Beth Ventura on 07-16-2023 Estimated GFR (MDRD) Amer 98 mL/min >60 [facility] Comment on above: GFR Calc Estimated GFR (MDRD) Non-Af Amer 81 mL/min >60 [facility] Comment on above: Non- GFR Calc Serum or plasma calcium michael urement (mass/volume)Ordered By: Beth Ventura on 07-16-2023 Calcium [Mass/Vol] 9.3 mg/dL 8.5-10.1 [facility] Serum or plasma creatinine m easurement (mass/volume)Ordered By: Beth Ventura on 07-16-2023 Creatinine [Mass/Vol] 0.98 mg/dL 0.70-1.30 [facility] Comment on above: The validity of the calculated GFR & GFRAA in patients over 70 years has not been determined. Clinical correlation is essential. Serum or plasma urea nitroge n measurement (mass/volume)Ordered By: Beth Ventura on 07-16-2023 Urea nitrogen [Mass/Vol] 16 mg/dL 7-18 [facility] Thin prep Papanicolaou smear with manual screeningOrdered By: Beth Ventura on 07-16-2023 Thin prep Papanicolaou smear with manual screening 5 5-15 [facility] Basophil percentageOrdered B y: Beth Ventura on 05-18-2023 Chloride [Moles/Vol] 110 mmol/L 98-107 [facility] Glucose [Mass/Vol] 99 mg/dL 74-106 [facility] Potassium [Moles/Vol] 4.1 mmol/L 3.5-5.1 [facility] Sodium [Moles/Vol] 140 mmol/L 136-145 [facility] - Chemistry and C hemistry - challengeOrdered By: Beth Ventura on 05-18-2023 CO2 [Moles/Vol] 27.0 mmol/L 21.0-32.0 [facility] Magnesium [Mass/Vol] 2.6 mg/dL 1.6-2.6 [facility] Urea nitrogen/Creatinine [Mass ratio] 26.3 mg/mg 10-20 [facility] No Panel InformationOrdered By: Beth Ventura on 05-18-2023 Estimated GFR (MDRD) Amer 102 mL/min >60 [facility] Comment on above: GFR Calc Estimated GFR (MDRD) Non-Af Amer 84 mL/min >60 [facility] Comment on above: Non- GFR Calc Serum or plasma calcium michael urement (mass/volume)Ordered By: Beth Ventura on 05-18-2023 Calcium [Mass/Vol] 9.9 mg/dL 8.5-10.1 [facility] Serum or plasma creatinine m easurement (mass/volume)Ordered By: Beth Ventura on 05-18-2023 Creatinine [Mass/Vol] 0.95 mg/dL 0.70-1.30 [facility] Comment on above: The validity of the calculated GFR & GFRAA in patients over 70 years has not been determined. Clinical correlation is essential. Serum or plasma lamotrigine measurement (mass/volume)Ordered By: Beth Ventura on 05-18-2023 lamoTRIgine [Mass/Vol] 12.6 ug/mL 2.0-20.0 [facility] Comment on above: Detection Limit = 1. 0Performed at: [facility] [address] [id number] Director: Keyona Rodriguez MD, Phone: [phone] Serum or plasma urea nitroge n measurement (mass/volume)Ordered By: Beth Ventura on 05-18-2023 Urea nitrogen [Mass/Vol] 25 mg/dL 7-18 [facility] Thin prep Papanicolaou smear with manual screeningOrdered By: Beth Ventura on 05-18-2023 Thin prep Papanicolaou smear with manual screening 3 5-15 [facility] Absolute lymphocyte countOrd ered By: Beth Ventura on 05-01-2023 Lymphocytes Auto (Unsp spec) [#/Vol] 5.56 10*3/uL 0.83-4.51 [facility] Basophil percentageOrdered B y: Beth Ventura on 05-01-2023 Ammonia (P) [Moles/Vol] 39.0 umol/L 11-32 [facility] Basophils/100 WBC (Bld) 1.0 % 0-1 [facility] Chloride [Moles/Vol] 111 mmol/L 98-107 [facility] Eosinophils/100 WBC (Bld) 2.8 % 0-5 [facility] Glucose [Mass/Vol] 88 mg/dL 74-106 [facility] Neutrophils (Bld) [#/Vol] 3.7 10*3/uL 2.0-7.7 [facility] Neutrophils/100 WBC (Bld) 34.4 % 47-70 [facility] Potassium [Moles/Vol] 4.0 mmol/L 3.5-5.1 [facility] Sodium [Moles/Vol] 140 mmol/L 136-145 [facility] WBC (Bld) [#/Vol] 10.8 10*3/uL 4.4-11.0 [facility] Blood erythrocytes count (nu mber/volume)Ordered By: Beth Ventura on 05-01-2023 RBC (Bld) [#/Vol] 3.91 10*6/uL 4.6-6.2 [facility] Blood hemoglobin measurement (mass/volume)Ordered By: Beth Ventura on 05-01-2023 Hemoglobin (Bld) [Mass/Vol] 12.3 g/dL 13.0-16.5 [facility] Blood lymphocytes/100 leukoc ytesOrdered By: Beth Ventura on 05-01-2023 Lymphocytes/100 WBC (Bld) 51.7 % 19-41 [facility] Blood manual differential co mment interpretation (narrative result)Ordered By: Beth Ventura on 05-01-2023 Manual differential comment Saleem (Bld) [Interp] SCANNED [facility] Comment on above: LYMPHOCYTOSIS Blood monocytes/100 leukocyt esOrdered By: Beth Ventura on 05-01-2023 Monocytes/100 WBC (Bld) 9.4 % 0-10 [facility] Blood platelet mean volumeOr dered By: Beth Ventura on 05-01-2023 Platelet mean volume (Bld) [Entitic vol] 11.2 fL 6.2-12.0 [facility] Determination of erythrocyte mean corpuscular volume (MCV)Ordered By: Beth Ventura on 05-01-2023 MCV (RBC) [Entitic vol] 97.2 fL 80-94 [facility] Hematocrit Auto (Bld) [Volum e fraction]Ordered By: Beth Ventura on 05-01-2023 Hematocrit (Bld) [Volume fraction] 38.0 % 40-54 [facility] - Chemistry and C hemistry - challengeOrdered By: Beth Ventura on 05-01-2023 CO2 [Moles/Vol] 24.0 mmol/L 21.0-32.0 [facility] Urea nitrogen/Creatinine [Mass ratio] 21.7 mg/mg 10-20 [facility] - Hematology and Cell countsOrdered By: Beth Ventura on 05-01-2023 Erythrocyte distribution width (RBC) [Entitic vol] 50.4 fL 35.1-43.9 [facility] Erythrocyte distribution width (RBC) [Ratio] 14.2 % 11.6-14.6 [facility] Immature granulocytes/100 WBC (Bld) 0.700 % 0.0-0.9 [facility] Comment on above: IG% - Immature Granu locytes (promyelocytes, myelocytes and metamyelocytes) > 1% indicates that a LEFT SHIFT is Present. MCH (RBC) [Entitic mass] 31.5 pg 27.0-32.0 [facility] Nucleated RBC/100 WBC (Bld) [Ratio] 0 % 0-5 [facility] MCHC Auto (RBC) [Mass/Vol]Or dered By: Beth Ventura on 05-01-2023 MCHC (RBC) [Mass/Vol] 32.4 g/dL 32-36 [facility] No Panel InformationOrdered By: Beth Ventura on 05-01-2023 Estimated GFR (MDRD) Amer 112 mL/min >60 [facility] Comment on above: GFR Calc Estimated GFR (MDRD) Non-Af Amer 92 mL/min >60 [facility] Comment on above: Non- GFR Calc Platelets bldOrdered By: Diana Ventura on 05-01-2023 Platelets (Bld) [#/Vol] 177 10*3/uL 150-450 [facility] Serum or plasma calcium michael urement (mass/volume)Ordered By: Beth Ventura on 05-01-2023 Calcium [Mass/Vol] 8.9 mg/dL 8.5-10.1 [facility] Serum or plasma creatinine m easurement (mass/volume)Ordered By: Beth Ventura on 05-01-2023 Creatinine [Mass/Vol] 0.88 mg/dL 0.70-1.30 [facility] Comment on above: The validity of the calculated GFR & GFRAA in patients over 70 years has not been determined. Clinical correlation is essential. Serum or plasma urea nitroge n measurement (mass/volume)Ordered By: Beth Ventura on 05-01-2023 Urea nitrogen [Mass/Vol] 19 mg/dL 7-18 [facility] Thin prep Papanicolaou smear with manual screeningOrdered By: Beth Ventura on 05-01-2023 Thin prep Papanicolaou smear with manual screening 5 5-15 [facility] Basophil percentageOrdered B y: Beth Ventura on 02-26-2023 Ammonia (P) [Moles/Vol] 43.0 umol/L 11-32 [facility] Bilirubin [Mass/Vol] 0.30 mg/dL 0.20-1.00 [facility] Comment on above: For patients on eltr ombopag therapy, use of Dimension [place] TBIL is not recommended. Chloride [Moles/Vol] 112 mmol/L 98-107 [facility] Glucose [Mass/Vol] 101 mg/dL 74-106 [facility] Comment on above: Fasting Glucose resu lt from 100 to 125 mg/dL suggests IMPAIRED HOMEOSTASIS per A.D.A. criteria. Potassium [Moles/Vol] 4.1 mmol/L 3.5-5.1 [facility] Protein [Mass/Vol] 6.7 g/dL 6.4-8.2 [facility] Sodium [Moles/Vol] 143 mmol/L 136-145 [facility] Laboratory - Chemistry and C hemistry - challengeOrdered By: Beth Ventura on 02-26-2023 ALP [Catalytic activity/Vol] 65 U/L 45-117 [facility] ALT [Catalytic activity/Vol] 25 U/L 16-61 [facility] CO2 [Moles/Vol] 25.0 mmol/L 21.0-32.0 [facility] Globulin (S) [Mass/Vol] 3.9 g/dL 2.2-4.2 [facility] Urea nitrogen/Creatinine [Mass ratio] 26.4 mg/mg 10-20 [facility] No Panel InformationOrdered By: Beth Ventura on 02-26-2023 Estimated GFR (MDRD) Amer 125 mL/min >60 [facility] Comment on above: GFR Calc Estimated GFR (MDRD) Non-Af Amer 103 mL/min >60 [facility] Comment on above: Non- GFR Calc Valproic Acid (Depakene) Level 89 ug/mL 50-100 [facility] Serum or plasma albumin michael urement (mass/volume)Ordered By: Beth Ventura on 02-26-2023 Albumin [Mass/Vol] 2.8 g/dL 3.2-5.0 [facility] Serum or plasma albumin/glob ulin mass ratioOrdered By: Beth Ventura on 02-26-2023 Albumin/Globulin [Mass ratio] 0.7 {ratio} 0.9-2.4 [facility] Serum or plasma calcium michael urement (mass/volume)Ordered By: Beth Ventura on 02-26-2023 Calcium [Mass/Vol] 9.2 mg/dL 8.5-10.1 [facility] Serum or plasma creatinine m easurement (mass/volume)Ordered By: Beth Ventura on 02-26-2023 Creatinine [Mass/Vol] 0.80 mg/dL 0.70-1.30 [facility] Comment on above: The validity of the calculated GFR & GFRAA in patients over 70 years has not been determined. Clinical correlation is essential. Serum or plasma urea nitroge n measurement (mass/volume)Ordered By: Beth Ventura on 02-26-2023 Urea nitrogen [Mass/Vol] 21 mg/dL 7-18 [facility] Thin prep Papanicolaou smear with manual screeningOrdered By: Beth Ventura on 02-26-2023 Thin prep Papanicolaou smear with manual screening 20 U/L 15-37 [facility] Thin prep Papanicolaou smear with manual screening 6 5-15 [facility] Absolute lymphocyte countOrd ered By: Beth Ventura on 10-16-2022 Lymphocytes Auto (Unsp spec) [#/Vol] 4.98 10*3/uL 0.83-4.51 [facility] Basophil percentageOrdered B y: Beth Ventura on 10-16-2022 Basophils/100 WBC (Bld) 1.2 % 0-1 [facility] Chloride [Moles/Vol] 111 mmol/L 98-107 [facility] Eosinophils/100 WBC (Bld) 2.2 % 0-5 [facility] Glucose [Mass/Vol] 103 mg/dL 74-106 [facility] Comment on above: Fasting Glucose resu lt from 100 to 125 mg/dL suggests IMPAIRED HOMEOSTASIS per A.D.A. criteria. Neutrophils (Bld) [#/Vol] 3.7 10*3/uL 2.0-7.7 [facility] Neutrophils/100 WBC (Bld) 36.2 % 47-70 [facility] Potassium [Moles/Vol] 4.0 mmol/L 3.5-5.1 [facility] Sodium [Moles/Vol] 142 mmol/L 136-145 [facility] WBC (Bld) [#/Vol] 10.2 10*3/uL 4.4-11.0 [facility] Blood erythrocytes count (nu mber/volume)Ordered By: Beth Ventura on 10-16-2022 RBC (Bld) [#/Vol] 4.22 10*6/uL 4.6-6.2 [facility] Blood hemoglobin measurement (mass/volume)Ordered By: Beth Ventura on 10-16-2022 Hemoglobin (Bld) [Mass/Vol] 13.5 g/dL 13.0-16.5 [facility] Blood lymphocytes/100 leukoc ytesOrdered By: Beth Ventura on 10-16-2022 Lymphocytes/100 WBC (Bld) 48.7 % 19-41 [facility] Blood monocytes/100 leukocyt esOrdered By: Beth Ventura on 10-16-2022 Monocytes/100 WBC (Bld) 10.9 % 0-10 [facility] Blood platelet mean volumeOr dered By: Beth Ventura on 10-16-2022 Platelet mean volume (Bld) [Entitic vol] 11.3 fL 6.2-12.0 [facility] Determination of erythrocyte mean corpuscular volume (MCV)Ordered By: Beth Ventura on 10-16-2022 MCV (RBC) [Entitic vol] 98.1 fL 80-94 [facility] Hematocrit Auto (Bld) [Volum e fraction]Ordered By: Bethcameron Ventura on 10-16-2022 Hematocrit (Bld) [Volume fraction] 41.4 % 40-54 [facility] Laboratory - Chemistry and C hemistry - challengeOrdered By: Beth Ventura on 10-16-2022 CO2 [Moles/Vol] 26.0 mmol/L 21.0-32.0 [facility] Urea nitrogen/Creatinine [Mass ratio] 19.8 mg/mg 10-20 [facility] Laboratory - Hematology and Cell countsOrdered By: Beth Ventura on 10-16-2022 Erythrocyte distribution width (RBC) [Entitic vol] 50.1 fL 35.1-43.9 [facility] Erythrocyte distribution width (RBC) [Ratio] 13.7 % 11.6-14.6 [facility] Immature granulocytes/100 WBC (Bld) 0.800 % 0.0-0.9 [facility] Comment on above: IG% - Immature Granu locytes (promyelocytes, myelocytes and metamyelocytes) > 1% indicates that a LEFT SHIFT is Present. MCH (RBC) [Entitic mass] 32.0 pg 27.0-32.0 [facility] Nucleated RBC/100 WBC (Bld) [Ratio] 0 % 0-5 [facility] MCHC Auto (RBC) [Mass/Vol]Or dered By: Beth Ventura on 10-16-2022 MCHC (RBC) [Mass/Vol] 32.6 g/dL 32-36 [facility] No Panel InformationOrdered By: Beth Ventura on 10-16-2022 Estimated GFR (MDRD) Amer 123 mL/min >60 [facility] Comment on above: GFR Calc Estimated GFR (MDRD) Non-Af Amer 101 mL/min >60 [facility] Comment on above: Non- GFR Calc Valproic Acid (Depakene) Level 62 ug/mL 50-100 [facility] Platelets bldOrdered By: Diana Ventura on 10-16-2022 Platelets (Bld) [#/Vol] 202 10*3/uL 150-450 [facility] Serum or plasma calcium michael urement (mass/volume)Ordered By: Beth Ventura on 10-16-2022 Calcium [Mass/Vol] 9.0 mg/dL 8.5-10.1 [facility] Serum or plasma creatinine m easurement (mass/volume)Ordered By: Beth Ventura on 10-16-2022 Creatinine [Mass/Vol] 0.81 mg/dL 0.70-1.30 [facility] Comment on above: The validity of the calculated GFR & GFRAA in patients over 70 years has not been determined. Clinical correlation is essential. Serum or plasma urea nitroge n measurement (mass/volume)Ordered By: Beth Ventura on 10-16-2022 Urea nitrogen [Mass/Vol] 16 mg/dL 7-18 [facility] Thin prep Papanicolaou smear with manual screeningOrdered By: Beth Ventura on 10-16-2022 Thin prep Papanicolaou smear with manual screening 5 5-15 [facility] Culture, urineOrdered By: Dr Nilesh Ventura on 09-06-2022 Bacteria identified Cx Nom (U) Presumptive E. coli [facility] Basophil percentageOrdered B y: Dr. Ventura on 09-04-2022 Basophil percentage 50-100 SEEN /hpf 0-5 [facility] Bilirubin Test strip Ql (U)O rdered By: Dr. Ventura on 09-04-2022 Bilirubin Ql (U) Negative Negative [facility] Culture, urineOrdered By: Miah Ventura on 09-04-2022 Bacteria identified Cx Nom (U) Presumptive E. coli [facility] Ketones Test strip Ql (U)Ord ered By: Dr. Ventura on 09-04-2022 Ketones Ql (U) 5 mg/dl Negative [facility] Mucus LM Ql (Urine sed)Order ed By: Dr. Ventura on 09-04-2022 Mucus Ql (Urine sed) 0 SEEN /hpf [facility] Nitrite Test strip Ql (U)Ord ered By: Dr. Ventura on 09-04-2022 Nitrite Ql (U) Positive Negative [facility] Protein Test strip Ql (U)Ord ered By: Dr. Ventura on 09-04-2022 Protein Ql (U) 15 mg/dl Negative [facility] Squamous epithelial cells de tection in urine sediment by light microscopyOrdered By: Dr. Ventura on 09-04-2022 Epithelial cells.squamous LM Ql (Urine sed) 0-5 SEEN /hpf 0-5 [facility] Urine blood detectionOrdered By: Dr. Ventura on 09-04-2022 RBC Ql (U) 10 /ul Negative [facility] RBC Ql (U) 0 SEEN /hpf 0-5 [facility] Urine clarityOrdered By: Dr. Ventura on 09-04-2022 Clarity (U) Sl. Cloudy Clear [facility] Urine color determinationOrd ered By: Dr. Ventura on 09-04-2022 Color (U) Yellow Yellow [facility] Urine glucose detectionOrder ed By: Dr. Ventura on 09-04-2022 Glucose Ql (U) Normal mg/dl Normal [facility] Urine leukocyte esterase det ection by dipstickOrdered By: Dr. Ventura on 09-04-2022 Leukocyte esterase Test strip Ql (U) 500 /ul Negative [facility] Urine pHOrdered By: Dr. Ambar santa on 09-04-2022 pH (U) 7.0 [pH] 5.0 - 8.0 [facility] Urine sediment bacteria coun t by microscopy (number/high power field)Ordered By: Dr. Ventura on 09-04-2022 Bacteria LM.HPF (Urine sed) [#/Area] 2 /[HPF] None Seen [facility] Urine specific gravity measu rementOrdered By: Dr. Ventura on 09-04-2022 Specific gravity (U) [Rel density] 1.015 1.002-1.030 [facility] Urobilinogen Auto test strip Ql (U)Ordered By: Dr. Ventura on 09-04-2022 Urobilinogen Ql (U) 1 mg/dl Normal [facility] Absolute lymphocyte countOrd ered By: Dr. Ventura on 08-29-2022 Lymphocytes Auto (Unsp spec) [#/Vol] 5.45 10*3/uL 0.83-4.51 [facility] Basophil percentageOrdered B y: Dr. Ventura on 08-29-2022 Ammonia (P) [Moles/Vol] 65.0 umol/L 11-32 [facility] Basophils/100 WBC (Bld) 0.6 % 0-1 [facility] Chloride [Moles/Vol] 108 mmol/L 98-107 [facility] Eosinophils/100 WBC (Bld) 1.5 % 0-5 [facility] Glucose [Mass/Vol] 92 mg/dL 74-106 [facility] Neutrophils (Bld) [#/Vol] 5.9 10*3/uL 2.0-7.7 [facility] Neutrophils/100 WBC (Bld) 45.7 % 47-70 [facility] Potassium [Moles/Vol] 3.9 mmol/L 3.5-5.1 [facility] Comment on above: Slight Hemolysis, Re sult may be falsely increased. Sodium [Moles/Vol] 139 mmol/L 136-145 [facility] WBC (Bld) [#/Vol] 12.8 10*3/uL 4.4-11.0 [facility] Blood erythrocytes count (nu mber/volume)Ordered By: Dr. Ventura on 08-29-2022 RBC (Bld) [#/Vol] 4.24 10*6/uL 4.6-6.2 [facility] Blood hemoglobin measurement (mass/volume)Ordered By: Dr. Ventura on 08-29-2022 Hemoglobin (Bld) [Mass/Vol] 13.7 g/dL 13.0-16.5 [facility] Blood lymphocytes/100 leukoc ytesOrdered By: Dr. Ventura on 08-29-2022 Lymphocytes/100 WBC (Bld) 42.5 % 19-41 [facility] Blood manual differential co mment interpretation (narrative result)Ordered By: Dr. Ventura on 08-29-2022 Manual differential comment Saleem (Bld) [Interp] SCANNED [facility] Comment on above: LYMPHOCYTOSIS NOTED Blood monocytes/100 leukocyt esOrdered By: Dr. Ventura on 08-29-2022 Monocytes/100 WBC (Bld) 9.3 % 0-10 [facility] Blood platelet mean volumeOr dered By: Dr. Ventura on 08-29-2022 Platelet mean volume (Bld) [Entitic vol] 11.7 fL 6.2-12.0 [facility] Determination of erythrocyte mean corpuscular volume (MCV)Ordered By: Dr. Ventura on 08-29-2022 MCV (RBC) [Entitic vol] 96.9 fL 80-94 [facility] Hematocrit Auto (Bld) [Volum e fraction]Ordered By: Dr. Ventura on 08-29-2022 Hematocrit (Bld) [Volume fraction] 41.1 % 40-54 [facility] Laboratory - Chemistry and C hemistry - challengeOrdered By: Dr. Ventura on 08-29-2022 CO2 [Moles/Vol] 24.0 mmol/L 21.0-32.0 [facility] Urea nitrogen/Creatinine [Mass ratio] 14.8 mg/mg 10-20 [facility] Laboratory - Hematology and Cell countsOrdered By: Dr. Ventura on 08-29-2022 Erythrocyte distribution width (RBC) [Entitic vol] 48.0 fL 35.1-43.9 [facility] Erythrocyte distribution width (RBC) [Ratio] 13.4 % 11.6-14.6 [facility] Immature granulocytes/100 WBC (Bld) 0.400 % 0.0-0.9 [facility] Comment on above: IG% - Immature Granu locytes (promyelocytes, myelocytes and metamyelocytes) > 1% indicates that a LEFT SHIFT is Present. MCH (RBC) [Entitic mass] 32.3 pg 27.0-32.0 [facility] Nucleated RBC/100 WBC (Bld) [Ratio] 0 % 0-5 [facility] MCHC Auto (RBC) [Mass/Vol]Or dered By: Dr. Ventura on 08-29-2022 MCHC (RBC) [Mass/Vol] 33.3 g/dL 32-36 [facility] No Panel InformationOrdered By: Dr. Ventura on 08-29-2022 Estimated GFR (MDRD) Amer 122 mL/min >60 [facility] Comment on above: GFR Calc Estimated GFR (MDRD) Non-Af Amer 101 mL/min >60 [facility] Comment on above: Non- GFR Calc Reactive Lymphocytes 1+ [facility] Platelets bldOrdered By: Dr. Ventura on 08-29-2022 Platelets (Bld) [#/Vol] 196 10*3/uL 150-450 [facility] Serum or plasma calcium michael urement (mass/volume)Ordered By: Dr. Ventura on 08-29-2022 Calcium [Mass/Vol] 9.8 mg/dL 8.5-10.1 [facility] Serum or plasma creatinine m easurement (mass/volume)Ordered By: Dr. Ventura on 08-29-2022 Creatinine [Mass/Vol] 0.81 mg/dL 0.70-1.30 [facility] Comment on above: The validity of the calculated GFR & GFRAA in patients over 70 years has not been determined. Clinical correlation is essential. Serum or plasma urea nitroge n measurement (mass/volume)Ordered By: Dr. Ventura on 08-29-2022 Urea nitrogen [Mass/Vol] 12 mg/dL 7-18 [facility] Thin prep Papanicolaou smear with manual screeningOrdered By: Dr. Ventura on 08-29-2022 Thin prep Papanicolaou smear with manual screening 7 5-15 [facility] No Panel InformationOrdered By: Dr. Ventura on 07-21-2022 Valproic Acid (Depakene) Level 85 ug/mL 50-100 [facility] Absolute lymphocyte countOrd ered By: Dr. Ventura on 06-27-2022 Lymphocytes Auto (Unsp spec) [#/Vol] 4.12 10*3/uL 0.83-4.51 [facility] Basophil percentageOrdered B y: Dr. Ventura on 06-27-2022 Ammonia (P) [Moles/Vol] 28.0 umol/L 11-32 [facility] Basophils/100 WBC (Bld) 0.9 % 0-1 [facility] Chloride [Moles/Vol] 106 mmol/L 98-107 [facility] Eosinophils/100 WBC (Bld) 2.1 % 0-5 [facility] Glucose [Mass/Vol] 119 mg/dL 74-106 [facility] Comment on above: Fasting Glucose resu lt from 100 to 125 mg/dL suggests IMPAIRED HOMEOSTASIS per A.D.A. criteria. Neutrophils (Bld) [#/Vol] 2.8 10*3/uL 2.0-7.7 [facility] Neutrophils/100 WBC (Bld) 36.2 % 47-70 [facility] Potassium [Moles/Vol] 3.9 mmol/L 3.5-5.1 [facility] Sodium [Moles/Vol] 140 mmol/L 136-145 [facility] WBC (Bld) [#/Vol] 7.8 10*3/uL 4.4-11.0 [facility] Blood erythrocytes count (nu mber/volume)Ordered By: Dr. Ventura on 06-27-2022 RBC (Bld) [#/Vol] 4.42 10*6/uL 4.6-6.2 [facility] Blood hemoglobin measurement (mass/volume)Ordered By: Dr. Ventura on 06-27-2022 Hemoglobin (Bld) [Mass/Vol] 14.1 g/dL 13.0-16.5 [facility] Blood lymphocytes/100 leukoc ytesOrdered By: Dr. Ventura on 06-27-2022 Lymphocytes/100 WBC (Bld) 53.1 % 19-41 [facility] Blood monocytes/100 leukocyt esOrdered By: Dr. Ventura on 06-27-2022 Monocytes/100 WBC (Bld) 6.7 % 0-10 [facility] Blood platelet mean volumeOr dered By: Dr. Ventura on 06-27-2022 Platelet mean volume (Bld) [Entitic vol] 11.2 fL 6.2-12.0 [facility] Determination of erythrocyte mean corpuscular volume (MCV)Ordered By: Dr. Ventura on 06-27-2022 MCV (RBC) [Entitic vol] 97.3 fL 80-94 [facility] Hematocrit Auto (Bld) [Volum e fraction]Ordered By: Dr. Ventura on 06-27-2022 Hematocrit (Bld) [Volume fraction] 43.0 % 40-54 [facility] Laboratory - Chemistry and C hemistry - challengeOrdered By: Dr. Ventura on 06-27-2022 CO2 [Moles/Vol] 25.0 mmol/L 21.0-32.0 [facility] Urea nitrogen/Creatinine [Mass ratio] 13.3 mg/mg 10-20 [facility] Laboratory - Hematology and Cell countsOrdered By: Dr. Ventura on 06-27-2022 Erythrocyte distribution width (RBC) [Entitic vol] 49.5 fL 35.1-43.9 [facility] Erythrocyte distribution width (RBC) [Ratio] 13.7 % 11.6-14.6 [facility] Immature granulocytes/100 WBC (Bld) 1.000 % 0.0-0.9 [facility] Comment on above: IG% - Immature Granu locytes (promyelocytes, myelocytes and metamyelocytes) > 1% indicates that a LEFT SHIFT is Present. MCH (RBC) [Entitic mass] 31.9 pg 27.0-32.0 [facility] Nucleated RBC/100 WBC (Bld) [Ratio] 0 % 0-5 [facility] MCHC Auto (RBC) [Mass/Vol]Or dered By: Dr. Ventura on 06-27-2022 MCHC (RBC) [Mass/Vol] 32.8 g/dL 32-36 [facility] No Panel InformationOrdered By: Dr. Ventura on 06-27-2022 Estimated GFR (MDRD) Amer 108 mL/min >60 [facility] Comment on above: GFR Calc Estimated GFR (MDRD) Non-Af Amer 89 mL/min >60 [facility] Comment on above: Non- GFR Calc Valproic Acid (Depakene) Level 105 ug/mL 50-100 [facility] Platelets bldOrdered By: Dr. Ventura on 06-27-2022 Platelets (Bld) [#/Vol] 208 10*3/uL 150-450 [facility] Serum or plasma calcium michael urement (mass/volume)Ordered By: Dr. Ventura on 06-27-2022 Calcium [Mass/Vol] 10.0 mg/dL 8.5-10.1 [facility] Serum or plasma creatinine m easurement (mass/volume)Ordered By: Dr. Ventura on 06-27-2022 Creatinine [Mass/Vol] 0.90 mg/dL 0.70-1.30 [facility] Comment on above: The validity of the calculated GFR & GFRAA in patients over 70 years has not been determined. Clinical correlation is essential. Serum or plasma urea nitroge n measurement (mass/volume)Ordered By: Dr. Ventura on 06-27-2022 Urea nitrogen [Mass/Vol] 12 mg/dL 7-18 [facility] Thin prep Papanicolaou smear with manual screeningOrdered By: Dr. Ventura on 06-27-2022 Thin prep Papanicolaou smear with manual screening 9 5-15 [facility] Absolute lymphocyte countOrd ered By: Dr. Ventura on 05-22-2022 Lymphocytes Auto (Unsp spec) [#/Vol] 4.76 10*3/uL 0.83-4.51 [facility] Basophil percentageOrdered B y: Dr. Ventura on 05-22-2022 Basophils/100 WBC (Bld) 0.8 % 0-1 [facility] Chloride [Moles/Vol] 111 mmol/L 98-107 [facility] Eosinophils/100 WBC (Bld) 2.2 % 0-5 [facility] Glucose [Mass/Vol] 97 mg/dL 74-106 [facility] Neutrophils (Bld) [#/Vol] 2.6 10*3/uL 2.0-7.7 [facility] Neutrophils/100 WBC (Bld) 30.1 % 47-70 [facility] Potassium [Moles/Vol] 3.9 mmol/L 3.5-5.1 [facility] Sodium [Moles/Vol] 142 mmol/L 136-145 [facility] WBC (Bld) [#/Vol] 8.6 10*3/uL 4.4-11.0 [facility] Blood erythrocytes count (nu mber/volume)Ordered By: Dr. Ventura on 05-22-2022 RBC (Bld) [#/Vol] 4.45 10*6/uL 4.6-6.2 [facility] Blood hemoglobin measurement (mass/volume)Ordered By: Dr. Ventura on 05-22-2022 Hemoglobin (Bld) [Mass/Vol] 14.4 g/dL 13.0-16.5 [facility] Blood lymphocytes/100 leukoc ytesOrdered By: Dr. Ventura on 05-22-2022 Lymphocytes/100 WBC (Bld) 55.2 % 19-41 [facility] Blood monocytes/100 leukocyt esOrdered By: Dr. Ventura on 05-22-2022 Monocytes/100 WBC (Bld) 11.0 % 0-10 [facility] Blood platelet mean volumeOr dered By: Dr. Ventura on 05-22-2022 Platelet mean volume (Bld) [Entitic vol] 11.7 fL 6.2-12.0 [facility] Determination of erythrocyte mean corpuscular volume (MCV)Ordered By: Dr. Ventura on 05-22-2022 MCV (RBC) [Entitic vol] 95.3 fL 80-94 [facility] Hematocrit Auto (Bld) [Volum e fraction]Ordered By: Dr. Ventura on 05-22-2022 Hematocrit (Bld) [Volume fraction] 42.4 % 40-54 [facility] Laboratory - Chemistry and C hemistry - challengeOrdered By: Dr. Ventura on 05-22-2022 CO2 [Moles/Vol] 24.0 mmol/L 21.0-32.0 [facility] Urea nitrogen/Creatinine [Mass ratio] 22.3 mg/mg 10-20 [facility] Laboratory - Hematology and Cell countsOrdered By: Dr. Ventura on 05-22-2022 Erythrocyte distribution width (RBC) [Entitic vol] 49.3 fL 35.1-43.9 [facility] Erythrocyte distribution width (RBC) [Ratio] 14.0 % 11.6-14.6 [facility] Immature granulocytes/100 WBC (Bld) 0.700 % 0.0-0.9 [facility] Comment on above: IG% - Immature Granu locytes (promyelocytes, myelocytes and metamyelocytes) > 1% indicates that a LEFT SHIFT is Present. MCH (RBC) [Entitic mass] 32.4 pg 27.0-32.0 [facility] Nucleated RBC/100 WBC (Bld) [Ratio] 0 % 0-5 [facility] MCHC Auto (RBC) [Mass/Vol]Or dered By: Dr. Ventura on 05-22-2022 MCHC (RBC) [Mass/Vol] 34.0 g/dL 32-36 [facility] No Panel InformationOrdered By: Dr. Ventura on 05-22-2022 Estimated GFR (MDRD) Amer 109 mL/min >60 [facility] Comment on above: GFR Calc Estimated GFR (MDRD) Non-Af Amer 90 mL/min >60 [facility] Comment on above: Non- GFR Calc Platelets bldOrdered By: Dr. Ventura on 05-22-2022 Platelets (Bld) [#/Vol] 208 10*3/uL 150-450 [facility] Serum or plasma C reactive p rotein measurement (mass/volume)Ordered By: Dr. Ventura on 05-22-2022 CRP [Mass/Vol] 3.83 mg/L 0.0-3.0 [facility] Comment on above: C-Reactive Protein ( CRP) provides useful information for thediagnosis, therapy and monitoring of inflammatory processesand associated diseases. For the evaluation of Relative Riskfor Cardiovascular Disease, a High Sensitivity CRP (HSCRP)should be ordered. Serum or plasma calcium michael urement (mass/volume)Ordered By: Dr. Ventura on 05-22-2022 Calcium [Mass/Vol] 9.2 mg/dL 8.5-10.1 [facility] Serum or plasma creatinine m easurement (mass/volume)Ordered By: Dr. Ventura on 05-22-2022 Creatinine [Mass/Vol] 0.90 mg/dL 0.70-1.30 [facility] Comment on above: The validity of the calculated GFR & GFRAA in patients over 70 years has not been determined. Clinical correlation is essential. Serum or plasma urea nitroge n measurement (mass/volume)Ordered By: Dr. Ventura on 05-22-2022 Urea nitrogen [Mass/Vol] 20 mg/dL 7-18 [facility] Thin prep Papanicolaou smear with manual screeningOrdered By: Dr. Ventura on 05-22-2022 Thin prep Papanicolaou smear with manual screening 7 5-15 [facility] Absolute lymphocyte countOrd ered By: Dr. Ventura on 05-15-2022 Lymphocytes Auto (Unsp spec) [#/Vol] 5.38 10*3/uL 0.83-4.51 [facility] Basophil percentageOrdered B y: Dr. Ventura on 05-15-2022 Basophils/100 WBC (Bld) 1.0 % 0-1 [facility] Chloride [Moles/Vol] 106 mmol/L 98-107 [facility] Eosinophils/100 WBC (Bld) 2.2 % 0-5 [facility] Glucose [Mass/Vol] 99 mg/dL 74-106 [facility] Neutrophils (Bld) [#/Vol] 3.2 10*3/uL 2.0-7.7 [facility] Neutrophils/100 WBC (Bld) 32.6 % 47-70 [facility] Potassium [Moles/Vol] 4.0 mmol/L 3.5-5.1 [facility] Sodium [Moles/Vol] 139 mmol/L 136-145 [facility] WBC (Bld) [#/Vol] 9.8 10*3/uL 4.4-11.0 [facility] Blood erythrocytes count (nu mber/volume)Ordered By: Dr. Ventura on 05-15-2022 RBC (Bld) [#/Vol] 4.61 10*6/uL 4.6-6.2 [facility] Blood hemoglobin measurement (mass/volume)Ordered By: Dr. Ventura on 05-15-2022 Hemoglobin (Bld) [Mass/Vol] 14.6 g/dL 13.0-16.5 [facility] Blood lymphocytes/100 leukoc ytesOrdered By: Dr. Ventura on 05-15-2022 Lymphocytes/100 WBC (Bld) 55.2 % 19-41 [facility] Blood manual differential co mment interpretation (narrative result)Ordered By: Dr. Ventura on 05-15-2022 Manual differential comment Saleem (Bld) [Interp] COMMENT [facility] Comment on above: LYMPHOCYTOSIS Blood monocytes/100 leukocyt esOrdered By: Dr. Ventura on 05-15-2022 Monocytes/100 WBC (Bld) 7.8 % 0-10 [facility] Blood platelet mean volumeOr dered By: Dr. Ventura on 05-15-2022 Platelet mean volume (Bld) [Entitic vol] 11.1 fL 6.2-12.0 [facility] Determination of erythrocyte mean corpuscular volume (MCV)Ordered By: Dr. Ventura on 05-15-2022 MCV (RBC) [Entitic vol] 94.8 fL 80-94 [facility] Hematocrit Auto (Bld) [Volum e fraction]Ordered By: Dr. Ventura on 05-15-2022 Hematocrit (Bld) [Volume fraction] 43.7 % 40-54 [facility] Laboratory - Chemistry and C hemistry - challengeOrdered By: Dr. Ventura on 05-15-2022 CO2 [Moles/Vol] 24.0 mmol/L 21.0-32.0 [facility] Urea nitrogen/Creatinine [Mass ratio] 16.0 mg/mg 10-20 [facility] Laboratory - Hematology and Cell countsOrdered By: Dr. Ventura on 05-15-2022 Erythrocyte distribution width (RBC) [Entitic vol] 44.4 fL 35.1-43.9 [facility] Erythrocyte distribution width (RBC) [Ratio] 12.8 % 11.6-14.6 [facility] Immature granulocytes/100 WBC (Bld) 1.200 % 0.0-0.9 [facility] Comment on above: IG% - Immature Granu locytes (promyelocytes, myelocytes and metamyelocytes) > 1% indicates that a LEFT SHIFT is Present. MCH (RBC) [Entitic mass] 31.7 pg 27.0-32.0 [facility] Nucleated RBC/100 WBC (Bld) [Ratio] 0.4 % 0-5 [facility] MCHC Auto (RBC) [Mass/Vol]Or dered By: Dr. Ventura on 05-15-2022 MCHC (RBC) [Mass/Vol] 33.4 g/dL 32-36 [facility] No Panel InformationOrdered By: Dr. Ventura on 05-15-2022 Estimated GFR (MDRD) Amer 104 mL/min >60 [facility] Comment on above: GFR Calc Estimated GFR (MDRD) Non-Af Amer 86 mL/min >60 [facility] Comment on above: Non- GFR Calc Platelets bldOrdered By: Dr. Ventura on 05-15-2022 Platelets (Bld) [#/Vol] 252 10*3/uL 150-450 [facility] Serum or plasma C reactive p rotein measurement (mass/volume)Ordered By: Dr. Ventura on 05-15-2022 CRP [Mass/Vol] 16.10 mg/L 0.0-3.0 [facility] Comment on above: C-Reactive Protein ( CRP) provides useful information for thediagnosis, therapy and monitoring of inflammatory processesand associated diseases. For the evaluation of Relative Riskfor Cardiovascular Disease, a High Sensitivity CRP (HSCRP)should be ordered. Serum or plasma calcium michael urement (mass/volume)Ordered By: Dr. Ventura on 05-15-2022 Calcium [Mass/Vol] 9.2 mg/dL 8.5-10.1 [facility] Serum or plasma creatinine m easurement (mass/volume)Ordered By: Dr. Ventura on 05-15-2022 Creatinine [Mass/Vol] 0.94 mg/dL 0.70-1.30 [facility] Comment on above: The validity of the calculated GFR & GFRAA in patients over 70 years has not been determined. Clinical correlation is essential. Serum or plasma urea nitroge n measurement (mass/volume)Ordered By: Dr. Ventura on 05-15-2022 Urea nitrogen [Mass/Vol] 15 mg/dL 7-18 [facility] Thin prep Papanicolaou smear with manual screeningOrdered By: Dr. Ventura on 05-15-2022 Thin prep Papanicolaou smear with manual screening 9 5-15 [facility] Basophil percentageOrdered B y: Dr. Ventura on 05-01-2022 Bilirubin [Mass/Vol] 0.50 mg/dL 0.20-1.00 [facility] Comment on above: For patients on eltr ombopag therapy, use of Dimension [place] TBIL is not recommended. Chloride [Moles/Vol] 107 mmol/L 98-107 [facility] Glucose [Mass/Vol] 100 mg/dL 74-106 [facility] Comment on above: Fasting Glucose resu lt from 100 to 125 mg/dL suggests IMPAIRED HOMEOSTASIS per A.D.A. criteria. Potassium [Moles/Vol] 3.5 mmol/L 3.5-5.1 [facility] Protein [Mass/Vol] 6.9 g/dL 6.4-8.2 [facility] Sodium [Moles/Vol] 142 mmol/L 136-145 [facility] WBC (Bld) [#/Vol] 10.2 10*3/uL 4.4-11.0 [facility] Blood erythrocytes count (nu mber/volume)Ordered By: Dr. Ventura on 05-01-2022 RBC (Bld) [#/Vol] 4.66 10*6/uL 4.6-6.2 [facility] Blood hemoglobin measurement (mass/volume)Ordered By: Dr. Ventura on 05-01-2022 Hemoglobin (Bld) [Mass/Vol] 15.0 g/dL 13.0-16.5 [facility] Blood platelet mean volumeOr dered By: Dr. Ventura on 05-01-2022 Platelet mean volume (Bld) [Entitic vol] 11.5 fL 6.2-12.0 [facility] Determination of erythrocyte mean corpuscular volume (MCV)Ordered By: Dr. Ventura on 05-01-2022 MCV (RBC) [Entitic vol] 96.8 fL 80-94 [facility] Hematocrit Auto (Bld) [Volum e fraction]Ordered By: Dr. Ventura on 05-01-2022 Hematocrit (Bld) [Volume fraction] 45.1 % 40-54 [facility] Laboratory - Chemistry and C hemistry - challengeOrdered By: Dr. Ventura on 05-01-2022 ALP [Catalytic activity/Vol] 56 U/L 45-117 [facility] ALT [Catalytic activity/Vol] 35 U/L 16-61 [facility] CO2 [Moles/Vol] 24.0 mmol/L 21.0-32.0 [facility] Globulin (S) [Mass/Vol] 4.1 g/dL 2.2-4.2 [facility] Urea nitrogen/Creatinine [Mass ratio] 31.6 mg/mg 10-20 [facility] Laboratory - Hematology and Cell countsOrdered By: Dr. Ventura on 05-01-2022 Erythrocyte distribution width (RBC) [Entitic vol] 47.1 fL 35.1-43.9 [facility] Erythrocyte distribution width (RBC) [Ratio] 13.1 % 11.6-14.6 [facility] MCH (RBC) [Entitic mass] 32.2 pg 27.0-32.0 [facility] MCHC Auto (RBC) [Mass/Vol]Or dered By: Dr. Ventura on 05-01-2022 MCHC (RBC) [Mass/Vol] 33.3 g/dL 32-36 [facility] No Panel InformationOrdered By: Dr. Ventrua on 05-01-2022 Estimated GFR (MDRD) Amer 102 mL/min >60 [facility] Comment on above: GFR Calc Estimated GFR (MDRD) Non-Af Amer 85 mL/min >60 [facility] Comment on above: Non- GFR Calc Platelets bldOrdered By: Dr. Ventura on 05-01-2022 Platelets (Bld) [#/Vol] 188 10*3/uL 150-450 [facility] Serum or plasma albumin michael urement (mass/volume)Ordered By: Dr. Ventura on 05-01-2022 Albumin [Mass/Vol] 2.8 g/dL 3.2-5.0 [facility] Serum or plasma albumin/glob ulin mass ratioOrdered By: Dr. Ventura on 05-01-2022 Albumin/Globulin [Mass ratio] 0.7 {ratio} 0.9-2.4 [facility] Serum or plasma calcium michael urement (mass/volume)Ordered By: Dr. Ventura on 05-01-2022 Calcium [Mass/Vol] 9.6 mg/dL 8.5-10.1 [facility] Serum or plasma creatinine m easurement (mass/volume)Ordered By: Dr. Ventura on 05-01-2022 Creatinine [Mass/Vol] 0.95 mg/dL 0.70-1.30 [facility] Comment on above: The validity of the calculated GFR & GFRAA in patients over 70 years has not been determined. Clinical correlation is essential. Serum or plasma urea nitroge n measurement (mass/volume)Ordered By: Dr. Ventura on 05-01-2022 Urea nitrogen [Mass/Vol] 30 mg/dL 7-18 [facility] Thin prep Papanicolaou smear with manual screeningOrdered By: Dr. Ventura on 05-01-2022 Thin prep Papanicolaou smear with manual screening 40 U/L 15-37 [facility] Thin prep Papanicolaou smear with manual screening 11 5-15 [facility] No Panel Informationon 11-11 Valproic Acid (Depakene) Level 138 ug/mL 50-100 [facility] Work Phone: Basophil percentageon 2021 Ammonia (P) [Moles/Vol] 44.0 umol/L 11-32 [facility] Work Phone: Bilirubin [Mass/Vol] 0.40 mg/dL 0.20-1.00 [facility] Work Phone: Comment on above: For patients on eltr ombopag therapy, use of Dimension [place] TBIL is not recommended. Chloride [Moles/Vol] 108 mmol/L 98-107 [facility] Work Phone: Glucose [Mass/Vol] 77 mg/dL 74-106 [facility] Work Phone: Potassium [Moles/Vol] 4.4 mmol/L 3.5-5.1 [facility] Work Phone: Protein [Mass/Vol] 6.1 g/dL 6.4-8.2 [facility] Work Phone: Sodium [Moles/Vol] 139 mmol/L 136-145 [facility] Work Phone: WBC (Bld) [#/Vol] 9.8 10*3/uL 4.4-11.0 [facility] Work Phone: Blood erythrocytes count (nu mber/volume)on 10-26-2021 RBC (Bld) [#/Vol] 3.68 10*6/uL 4.6-6.2 [facility]: Blood hemoglobin measurement (mass/volume)on 10-26-2021 Hemoglobin (Bld) [Mass/Vol] 12.2 g/dL 13.0-16.5 [facility] Work Phone: Blood platelet mean volumeon 10-26-2021 Platelet mean volume (Bld) [Entitic vol] 11.0 fL 6.2-12.0 [facility] Work Phone: Determination of erythrocyte mean corpuscular volume (MCV)on 10-26-2021 MCV (RBC) [Entitic vol] 99.5 fL 80-94 [facility] Work Phone: Hematocrit Auto (Bld) [Volum e fraction]on 10-26-2021 Hematocrit (Bld) [Volume fraction] 36.6 % 40-54 [facility] Work Phone: Laboratory - Chemistry and C hemistry - challengeon 10-26-2021 ALP [Catalytic activity/Vol] 54 U/L 45-117 [facility] Work Phone: ALT [Catalytic activity/Vol] 19 U/L 16-61 [facility] Work Phone: CO2 [Moles/Vol] 27.0 mmol/L 21.0-32.0 [facility] Work Phone: Globulin (S) [Mass/Vol] 3.5 g/dL 2.2-4.2 [facility] Work Phone: Urea nitrogen/Creatinine [Mass ratio] 18.9 mg/mg 10-20 [facility] Work Phone: Laboratory - Hematology and Cell countson 10-26-2021 Erythrocyte distribution width (RBC) [Entitic vol] 50.8 fL 35.1-43.9 [facility] Work Phone: Erythrocyte distribution width (RBC) [Ratio] 13.8 % 11.6-14.6 [facility] Work Phone: MCH (RBC) [Entitic mass] 33.2 pg 27.0-32.0 [facility] Work Phone: MCHC Auto (RBC) [Mass/Vol]on 10-26-2021 MCHC (RBC) [Mass/Vol] 33.3 g/dL 32-36 [facility] Work Phone: No Panel Informationon 10-26 Estimated GFR (MDRD) Amer 109 mL/min >60 [facility] Work Phone: Comment on above: GFR Calc Estimated GFR (MDRD) Non-Af Amer 90 mL/min >60 [facility] Work Phone: Comment on above: Non- GFR Calc Valproic Acid (Depakene) Level 121 ug/mL 50-100 [facility] Work Phone: Platelets bldon 10-26-2021 Platelets (Bld) [#/Vol] 165 10*3/uL 150-450 [facility] Work Phone: Serum or plasma albumin michael urement (mass/volume)on 10-26-2021 Albumin [Mass/Vol] 2.6 g/dL 3.2-5.0 [facility] Work Phone: Serum or plasma albumin/glob ulin mass ratioon 10-26-2021 Albumin/Globulin [Mass ratio] 0.7 {ratio} 0.9-2.4 [facility] Work Phone: Serum or plasma calcium michael urement (mass/volume)on 10-26-2021 Calcium [Mass/Vol] 9.6 mg/dL 8.5-10.1 [facility] Work Phone: Serum or plasma creatinine m easurement (mass/volume)on 10-26-2021 Creatinine [Mass/Vol] 0.90 mg/dL 0.70-1.30 [facility] Work Phone: Comment on above: The validity of the calculated GFR & GFRAA in patients over 70 years has not been determined. Clinical correlation is essential. Serum or plasma lamotrigine measurement (mass/volume)on 10-26-2021 lamoTRIgine [Mass/Vol] 8.4 ug/mL 2.0-20.0 [facility] Work Phone: Comment on above: Detection Limit = 1. 0Performed at: - Lab[address] [id number] Director: Keyona Rodriguez MD, Phone: [phone] Serum or plasma urea nitroge n measurement (mass/volume)on 10-26-2021 Urea nitrogen [Mass/Vol] 17 mg/dL 7-18 [facility] Work Phone: Thin prep Papanicolaou smear with manual screeningon 10-26-2021 Thin prep Papanicolaou smear with manual screening 21 U/L 15-37 [facility] Work Phone: Thin prep Papanicolaou smear with manual screening 4 5-15 [facility] Work Phone: Basophil percentageon 2021 Bilirubin [Mass/Vol] 0.40 mg/dL 0.20-1.00 [facility] Work Phone: Comment on above: For patients on eltr ombopag therapy, use of Dimension [place] TBIL is not recommended. Chloride [Moles/Vol] 106 mmol/L 98-107 [facility] Work Phone: Glucose [Mass/Vol] 76 mg/dL 74-106 [facility] Work Phone: Potassium [Moles/Vol] 4.1 mmol/L 3.5-5.1 [facility] Work Phone: Protein [Mass/Vol] 6.5 g/dL 6.4-8.2 [facility] Work Phone: Sodium [Moles/Vol] 136 mmol/L 136-145 [facility] Work Phone: WBC (Bld) [#/Vol] 8.2 10*3/uL 4.4-11.0 [facility] Work Phone: Blood erythrocytes count (nu mber/volume)on 07-27-2021 RBC (Bld) [#/Vol] 3.80 10*6/uL 4.6-6.2 [facility] Work Phone: Blood hemoglobin measurement (mass/volume)on 07-27-2021 Hemoglobin (Bld) [Mass/Vol] 12.4 g/dL 13.0-16.5 [facility] Work Phone: Blood platelet mean volumeon 07-27-2021 Platelet mean volume (Bld) [Entitic vol] 11.2 fL 6.2-12.0 [facility] Work Phone: Determination of erythrocyte mean corpuscular volume (MCV)on 07-27-2021 MCV (RBC) [Entitic vol] 95.8 fL 80-94 [facility] Work Phone: Hematocrit Auto (Bld) [Volum e fraction]on 07-27-2021 Hematocrit (Bld) [Volume fraction] 36.4 % 40-54 [facility] Work Phone: Iron measurement (mass/mass) on 07-27-2021 Iron (Unsp spec) [Mass/Mass] 121 ug/dL 65-175 [facility] Work Phone: Laboratory - Chemistry and C hemistry - challengeon 07-27-2021 ALP [Catalytic activity/Vol] 57 U/L 45-117 [facility] Work Phone: ALT [Catalytic activity/Vol] 16 U/L 16-61 [facility] Work Phone: CO2 [Moles/Vol] 25.0 mmol/L 21.0-32.0 [facility] Work Phone: Globulin (S) [Mass/Vol] 3.8 g/dL 2.2-4.2 [facility] Work Phone: Urea nitrogen/Creatinine [Mass ratio] 15.4 mg/mg 10-20 [facility] Work Phone: Laboratory - Hematology and Cell countson 07-27-2021 Erythrocyte distribution width (RBC) [Entitic vol] 50.5 fL 35.1-43.9 [facility] Work Phone: Erythrocyte distribution width (RBC) [Ratio] 14.3 % 11.6-14.6 [facility] Work Phone: MCH (RBC) [Entitic mass] 32.6 pg 27.0-32.0 [facility] Work Phone: MCHC Auto (RBC) [Mass/Vol]on 07-27-2021 MCHC (RBC) [Mass/Vol] 34.1 g/dL 32-36 [facility] Work Phone: No Panel Informationon 07-27 Estimated GFR (MDRD) Amer 107 mL/min >60 [facility] Work Phone: Comment on above: GFR Calc Estimated GFR (MDRD) Non-Af Amer 89 mL/min >60 [facility] Work Phone: Comment on above: Non- GFR Calc Platelets bldon 07-27-2021 Platelets (Bld) [#/Vol] 153 10*3/uL 150-450 [facility] Work Phone: Serum or plasma albumin michael urement (mass/volume)on 07-27-2021 Albumin [Mass/Vol] 2.7 g/dL 3.2-5.0 [facility] Work Phone: Serum or plasma albumin/glob ulin mass ratioon 07-27-2021 Albumin/Globulin [Mass ratio] 0.7 {ratio} 0.9-2.4 [facility] Work Phone: Serum or plasma calcium michael urement (mass/volume)on 07-27-2021 Calcium [Mass/Vol] 9.4 mg/dL 8.5-10.1 [facility] Work Phone: Serum or plasma creatinine m easurement (mass/volume)on 07-27-2021 Creatinine [Mass/Vol] 0.91 mg/dL 0.70-1.30 [facility] Work Phone: Comment on above: The validity of the calculated GFR & GFRAA in patients over 70 years has not been determined. Clinical correlation is essential. Serum or plasma ferritin narendra surement (mass/volume)on 07-27-2021 Ferritin [Mass/Vol] 425 ng/mL 26-388 [facility] Work Phone: Serum or plasma urea nitroge n measurement (mass/volume)on 07-27-2021 Urea nitrogen [Mass/Vol] 14 mg/dL 7-18 [facility] Work Phone: Thin prep Papanicolaou smear with manual screeningon 07-27-2021 Thin prep Papanicolaou smear with manual screening 21 U/L 15-37 [facility] Work Phone: Thin prep Papanicolaou smear with manual screening 5 5-15 [facility] Work Phone: Basophil percentageon 2021 Ammonia (P) [Moles/Vol] 52.0 umol/L 11-32 [facility] Work Phone: Basophil percentageon 2021 Chloride [Moles/Vol] 111 mmol/L 98-107 [facility] Work Phone: Glucose [Mass/Vol] 71 mg/dL 74-106 [facility] Work Phone: Potassium [Moles/Vol] 4.8 mmol/L 3.5-5.1 [facility] Work Phone: Comment on above: Moderate Hemolysis, Result may be falsely increased. Sodium [Moles/Vol] 141 mmol/L 136-145 [facility] Work Phone: WBC (Bld) [#/Vol] 7.3 10*3/uL 4.4-11.0 [facility] Work Phone: Blood erythrocytes count (nu mber/volume)on 05-23-2021 RBC (Bld) [#/Vol] 3.95 10*6/uL 4.6-6.2 [facility] Work Phone: Blood hemoglobin measurement (mass/volume)on 05-23-2021 Hemoglobin (Bld) [Mass/Vol] 12.8 g/dL 13.0-16.5 [facility] Work Phone: Blood platelet mean volumeon 05-23-2021 Platelet mean volume (Bld) [Entitic vol] 11.0 fL 6.2-12.0 [facility] Work Phone: Determination of erythrocyte mean corpuscular volume (MCV)on 05-23-2021 MCV (RBC) [Entitic vol] 101.3 fL 80-94 [facility] Work Phone: Hematocrit Auto (Bld) [Volum e fraction]on 05-23-2021 Hematocrit (Bld) [Volume fraction] 40.0 % 40-54 [facility] Work Phone: Laboratory - Chemistry and C hemistry - challengeon 05-23-2021 CO2 [Moles/Vol] 27.0 mmol/L 21.0-32.0 [facility] Work Phone: Urea nitrogen/Creatinine [Mass ratio] 17.7 mg/mg 10-20 [facility] Work Phone: Laboratory - Hematology and Cell countson 05-23-2021 Erythrocyte distribution width (RBC) [Entitic vol] 53.4 fL 35.1-43.9 [facility] Work Phone: Erythrocyte distribution width (RBC) [Ratio] 14.3 % 11.6-14.6 [facility] Work Phone: MCH (RBC) [Entitic mass] 32.4 pg 27.0-32.0 [facility] Work Phone: MCHC Auto (RBC) [Mass/Vol]on 05-23-2021 MCHC (RBC) [Mass/Vol] 32.0 g/dL 32-36 [facility] Work Phone: No Panel Informationon 05-23 Estimated GFR (MDRD) Amer 101 mL/min >60 [facility] Work Phone: Comment on above: GFR Calc Estimated GFR (MDRD) Non-Af Amer 84 mL/min >60 [facility] Work Phone: Comment on above: Non- GFR Calc Platelets bldon 05-23-2021 Platelets (Bld) [#/Vol] 249 10*3/uL 150-450 [facility] Work Phone: Serum or plasma C reactive p rotein measurement (mass/volume)on 05-23-2021 CRP [Mass/Vol] 3.61 mg/L 0.0-3.0 [facility] Work Phone: Comment on above: C-Reactive Protein ( CRP) provides useful information for thediagnosis, therapy and monitoring of inflammatory processesand associated diseases. For the evaluation of Relative Riskfor Cardiovascular Disease, a High Sensitivity CRP (HSCRP)should be ordered. Serum or plasma calcium michael urement (mass/volume)on 05-23-2021 Calcium [Mass/Vol] 9.5 mg/dL 8.5-10.1 [facility] Work Phone: Serum or plasma creatinine m easurement (mass/volume)on 05-23-2021 Creatinine [Mass/Vol] 0.96 mg/dL 0.70-1.30 [facility] Work Phone: Comment on above: The validity of the calculated GFR & GFRAA in patients over 70 years has not been determined. Clinical correlation is essential. Serum or plasma urea nitroge n measurement (mass/volume)on 05-23-2021 Urea nitrogen [Mass/Vol] 17 mg/dL 7-18 [facility] Work Phone: Thin prep Papanicolaou smear with manual screeningon 05-23-2021 Thin prep Papanicolaou smear with manual screening 3 5-15 [facility] Work Phone: Absolute lymphocyte counton 05-16-2021 Lymphocytes Auto (Unsp spec) [#/Vol] 3.11 10*3/uL 0.83-4.51 [facility] Work Phone: Basophil percentageon 2021 Basophils/100 WBC (Bld) 0.9 % 0-1 [facility] Work Phone: Chloride [Moles/Vol] 109 mmol/L 98-107 [facility] Work Phone: Eosinophils/100 WBC (Bld) 1.9 % 0-5 [facility] Work Phone: Glucose [Mass/Vol] 82 mg/dL 74-106 [facility] Work Phone: Neutrophils (Bld) [#/Vol] 1.5 10*3/uL 2.0-7.7 [facility] Work Phone: Neutrophils/100 WBC (Bld) 28.6 % 47-70 [facility] Work Phone: Potassium [Moles/Vol] 4.0 mmol/L 3.5-5.1 [facility] Work Phone: Sodium [Moles/Vol] 144 mmol/L 136-145 [facility] Work Phone: WBC (Bld) [#/Vol] 5.3 10*3/uL 4.4-11.0 [facility] Work Phone: Blood erythrocytes count (nu mber/volume)on 05-16-2021 RBC (Bld) [#/Vol] 4.04 10*6/uL 4.6-6.2 [facility] Work Phone: Blood hemoglobin measurement (mass/volume)on 05-16-2021 Hemoglobin (Bld) [Mass/Vol] 13.1 g/dL 13.0-16.5 [facility] Work Phone: Blood lymphocytes/100 leukoc yteson 05-16-2021 Lymphocytes/100 WBC (Bld) 58.3 % 19-41 [facility] Work Phone: Blood monocytes/100 leukocyt eson 05-16-2021 Monocytes/100 WBC (Bld) 9.9 % 0-10 [facility] Work Phone: Blood platelet mean volumeon 05-16-2021 Platelet mean volume (Bld) [Entitic vol] 11.8 fL 6.2-12.0 [facility] Work Phone: Determination of erythrocyte mean corpuscular volume (MCV)on 05-16-2021 MCV (RBC) [Entitic vol] 98.5 fL 80-94 [facility] Work Phone: Hematocrit Auto (Bld) [Volum e fraction]on 05-16-2021 Hematocrit (Bld) [Volume fraction] 39.8 % 40-54 [facility] Work Phone: Laboratory - Chemistry and C hemistry - challengeon 05-16-2021 CO2 [Moles/Vol] 30.0 mmol/L 21.0-32.0 [facility] Work Phone: Urea nitrogen/Creatinine [Mass ratio] 19.6 mg/mg 10-20 [facility] Work Phone: Laboratory - Hematology and Cell countson 05-16-2021 Erythrocyte distribution width (RBC) [Entitic vol] 50.7 fL 35.1-43.9 [facility] Work Phone: Erythrocyte distribution width (RBC) [Ratio] 13.8 % 11.6-14.6 [facility] Work Phone: Immature granulocytes/100 WBC (Bld) 0.400 % 0.0-0.9 [facility] Work Phone: Comment on above: IG% - Immature Granu locytes (promyelocytes, myelocytes and metamyelocytes) > 1% indicates that a LEFT SHIFT is Present. MCH (RBC) [Entitic mass] 32.4 pg 27.0-32.0 [facility] Work Phone: Nucleated RBC/100 WBC (Bld) [Ratio] 0 % 0-5 [facility] Work Phone: MCHC Auto (RBC) [Mass/Vol]on 05-16-2021 MCHC (RBC) [Mass/Vol] 32.9 g/dL 32-36 [facility] Work Phone: No Panel Informationon 05-16 Estimated GFR (MDRD) Amer 142 mL/min >60 [facility] Work Phone: Comment on above: GFR Calc Estimated GFR (MDRD) Non-Af Amer 118 mL/min >60 [facility] Work Phone: Comment on above: Non- GFR Calc Platelets bldon 05-16-2021 Platelets (Bld) [#/Vol] 106 10*3/uL 150-450 [facility] Work Phone: Serum or plasma C reactive p rotein measurement (mass/volume)on 05-16-2021 CRP [Mass/Vol] 18.70 mg/L 0.0-3.0 [facility] Work Phone: Comment on above: C-Reactive Protein ( CRP) provides useful information for thediagnosis, therapy and monitoring of inflammatory processesand associated diseases. For the evaluation of Relative Riskfor Cardiovascular Disease, a High Sensitivity CRP (HSCRP)should be ordered. Serum or plasma calcium michael urement (mass/volume)on 05-16-2021 Calcium [Mass/Vol] 9.1 mg/dL 8.5-10.1 [facility] Work Phone: Serum or plasma creatinine m easurement (mass/volume)on 05-16-2021 Creatinine [Mass/Vol] 0.71 mg/dL 0.70-1.30 [facility] Work Phone: Comment on above: The validity of the calculated GFR & GFRAA in patients over 70 years has not been determined. Clinical correlation is essential. Serum or plasma urea nitroge n measurement (mass/volume)on 05-16-2021 Urea nitrogen [Mass/Vol] 14 mg/dL 11-07 [facility] Work Phone: Thin prep Papanicolaou smear with manual screeningon 05-16-2021 Thin prep Papanicolaou smear with manual screening 09-04 [facility] Work Phone: ANES eNly 10-27-2020 ANES POST HNO ID: [id number] Author: Haresh Rodriges MD Service: Anesthesiology Author Type: Anesthesiologist Type: Anesthesia PostOp Filed: 10/27/2020 5:00 PM Note Text: POST ANESTHESIA EVALUATION NOTE SERVICE DATE: 10/27/2020 SERVICE TIME: 1346 : 1955 Vitals: Validated Vital Signs: HR: 63; BP: 116/66; RR: 12; SpO2%: 100; Temperature: . POST ANES STATUS: No apparent anesthetic complications. The patient is appropriately hydrated with stable respiratory and cardiovascular status. Patient has safe and adequate airway control. The patient has appropriate pain relief and no significant post operative nausea or vomiting. The patient has achieved baseline mental status. Intra-Operative Events: No Significant Anesthesia Events Further assessment by Anesthesia Service: None Other Remarks: SIGNATURE: Haresh Rodriges MD PATIENT NAME: Jesus Shaver DATE: October 27, 2020 TIME: 4:59 PM PAGER/CONTACT #: [phone] [facility] HISTORY PHYSICALon HISTORY PHYSICAL HNO ID: [id number] Author: Wendy Cardoso MD Service: Gastroenterology Author Type: Physician Type: HANDP Filed: 10/27/2020 10:31 AM Note Text: HISTORY AND PHYSICAL Jesus Shaver, 65 year old male Current history and physical on file: No Is a new History and Physical required for today's visit? No Indication for procedure: Choledocholithiasis PROCEDURE(S) SCHEDULED FOR: ERCP (Endoscopic Retrograde CholangioPancreatography with or without biopsy, stenting, dilation, cholangioscopy and/or treatment, based on clinical findings. BASELINE BEHAVIOR: Calm BASELINE ORIENTATION: A AND O x2 All medications and allergies reviewed: Yes Skin Assessment: Warm dry mucus membranes pink Airway/Respiratory Assessment: Airway: visualization of the uvula- Yes Mouth: opening greater than 2 fingerbreadths- Yes Neck: full range of motion- Yes Breath sounds clear/equal- Yes Cardiac Assessment: Regular rate and rhythm without murmur Abdominal Assessment: Abdomen soft, non-tender, no masses or organomegaly. Sedation Plan: MAC Additional Comments: None Wendy Cardoso MD [facility] IR REMOVE CATH BILI DRAINon 10-27-2020 IR REMOVE CATH BILI DRAIN * * *Final Report* * * DATE OF EXAM: Oct 27 2020 2:26PM [facility] 2306 - IR REMOVE CATH BILI DRAIN / PROCEDURE REASON: Obstructive jaundice * * * * Physician Interpretation * * * * PROCEDURE: BILIARY DRAIN REMOVAL Procedural Personnel Attending physician(s): Marsha Gutierrez M.D. Fellow physician(s): None Resident physician(s): None Advanced practice provider(s): None Medical Student(s): None Pre-procedure diagnosis: Biliary stones Post-procedure diagnosis: Same Indication: Other-removal of the catheter requested by the endoscopist for facilitation of internal stent placement Additional clinical history: Biliary stones were removed endoscopically. Request for interventional radiology rendezvous procedure was requested during ongoing endoscopy. PROCEDURE SUMMARY: -Removal of RIGHT internal/external biliary drainage catheter under fluoroscopic guidance. PROCEDURE DETAILS: Pre-procedure Consent: Consent obtained with the legal physician relations representative as documented by Dr. Lu. Medication reconciliation: Done Xuan-procedure discussion: The appropriate elements of the pre-procedure discussion, safety check list and sign-out were performed. Time out was completed before start of procedure. Preparation: The site was prepared and draped using maximal sterile barrier technique including cutaneous antisepsis. Contrast: Contrast agent: Contrast volume (mL): Image Guidance: Fluoroscopic guidance. Radiation/Dose: Will be documented through the endoscopy procedure note at the end of the procedure. FLUOROSCOPIC RADIATION SUMMARY: Plane A, Air Kerma: 0.0 mGy Dose Area Product (DAP): 0.0 mGy*cm2 Fluoro Time: min:sec Radiation dose exceed 5 Gy: No If radiation dose exceeded 5 Gy, was counseling and instructional brochure provided: N/A Anesthesia/Sedation: Level of anesthesia/sedation: General anesthesia Anesthesia/sedation administered by: Anesthesiology Total intra-service sedation time (minutes): Local anesthesia: None Antibiotics and meds: Zosyn Antibiotic infusion start time: 14:20 Prophylactic antibiotic administered: Within 1 hour of procedure start time or 2 hours for vancomycin or fluoroquinolones Additional med: None Additional med: None Start of procedure: 14:21 End of procedure: 14:26 TECHNIQUE Patient position: LEFT lateral decubitus Right biliary drain Local anesthesia was not needed. Initial cholangiogram not performed. An Amplatz superstiff guidewire was passed through the bile ducts and into the small bowel and the biliary catheter was removed. Sterile dressing was applied. Additional biliary intervention Biliary intervention: None Location of intervention: Not applicable Device used: Not applicable Description of intervention: Not applicable Post-intervention findings: Not applicable Additional Details Additional description of procedure: None Equipment details: None Number and Type of Removed Specimens: 0: N/A Estimated blood loss (mL): Less than 10 Standardized report: SIR_BiliaryDrainExchange_v 3 COMPLICATIONS: No immediate complications CONCLUSION: The remainder the patient's endoscopic procedure continued after the interventional radiology portion of the procedure was completed. The procedure was performed by the: attending radiologist, without an management assistant. The attending radiologist performed the following procedural activities: Entire procedure IMPRESSION: REMOVAL OF THE BILIARY CATHETER UNDER FLUOROSCOPIC GUIDANCE PLAN: Endoscopic stent placement per Dr. Lu. ATTESTATION: Signer name: Marsha Gutierrez I attest that I was present for the entire procedure. I reviewed the stored images and agree with the report as written. Greens Laborer: PSCB Transcribe Date/Time: Oct 27 2020 2:56P Dictated by : MARSHA GUTIERREZ MD This examination was interpreted and the report reviewed and electronically signed by: MARSHA GUTIERREZ MD on Oct 27 2020 3:02PM EST [facility] NURSING PROGon 10-27-2020 NURSING PROG HNO ID: [id number] Author: Danilo Orosco LPN Service: ? Author Type: LICENSED NURSE Type: Nursing Progress Note Filed: 10/27/2020 10:02 AM Note Text: PRE OP LEARNING ASSESSMENT PROCEDURE/SURGERY: GI PROCEDURES: ERCP READINESS TO LEARN COGNITIVE ABILITY: Developmentally Disabled MOTIVATION TO LEARN: Disinterested / avoidant FAMILY SUPPORT: Unable to assess - Family not present PATIENT LEARNS BEST BY: Unable to Assess FACTORS AFFECTING LEARNING: Unable to assess PHYSICAL LIMITATIONS AFFECTING LEARNING: Other Limitations Electronically Signed By: Danilo Orosco LPN In Department: GASTROENTEROLOGY [facility] 10-20-2020 [facility] Telephone (GASTPR) -- JESUS SHAVER ([id number]) 1955 Date Time Provider Department 10/20/20 VIDHI SANTOS During your visit today, we recorded the following information about you: Vidhi Santos RN 10/20/2020 3:05 PM Signed GI Pre-Procedure Spoke with patient: Spoke with [employer]ulting group analyst, patient is currently at their SNF facility ([facility]). Confirmed date scheduled and patient report time: Yes Procedure Planned:Endoscopic Retrograde CholangioPancreatography(E PORTFOLIO MANAGER) with or without biopsy,stenting,dilation and/or treatment Is the patient on blood thinners?no Procedure Instructions given to patient: Yes, and they verbalized their understanding of instructions given Patient instructed to take prescribed preparation prior to procedure:Yes, and they verbalized their understanding of instructions given Patient instructed to have family/friend present for procedure? transport home:Patient/patient physician relations representative was told that if they do not have a responsible adult accompany them to their procedure; and remain in the endoscopy area until they are discharged; that their procedure cannot be done with sedation or anesthesia and may be cancelled. and They verbalized their understanding and agree to have a responsible adult accompany the patient to their procedure and remain in the endoscopy area. Any barriers to Patient learning: Patient/Patient Patient Care Associate responded appropriately on phone. Type of instruction given: Verbal by telephone contact. Vidhi Santos RN Le stated "I'm not sure the patient will make it to this appointment as they may not be aware of the appointment. Per phone encounter by Dr. Lu on 10/12 nurse Anastacia was notified of appointment and fasting instructions. Le stated that Anastacia is not a nurse at the senior care but could be a nurse at the SNF side. Le stated that she would call over to the [facility] to update them on procedure information but she is unsure if patient will make it to appointment. Informed by Le that she has been receiving updates on patient and that he has been steadily declining. Le states "Patient is jaundiced and has stage 4 kidney issues". She also states SNF physician has been discussing hospice so she requested to take our phone number so they can adjust or cancel procedure if needed. Provided Q3 number if needed to update appointment. Allergies As of Date: 10/20/2020 Noted Allergy Reaction KEPPRA (LEVETIRACETAM) 05/14/2015 14 - Other: See Comments Comments: Increased seizures VICKS VAPORUB (CINWX-EHHVJMXM-LKP*2015 2 - Rash Date Reviewed: 09/13/2020 Reviewed by: Kolton Grayson RN - Fully Assessed Reason for Visit: Appointment Confirmation [[id number]] Prescriptions as of 10/20/2020 Sig: CERTAVITE-ANTIOXIDANT 18 MG-4* Take 1 tablet by mouth once d* CALCIUM CARBONATE 500 MG (1,2* TAKE (1) TABLET BY MOUTH TWIC* POLYETHYLENE GLYCOL 3350 17 G* Take 1 Packet by mouth once d* DIVALPROEX 500 MG TABLET,MARVA* Take 3 tablets by mouth daily* LAMOTRIGINE ER 100 MG TABLET,* Take 1 tablet by mouth once d* SENNOSIDES 8.6 MG TABLET Take 1 tablet by mouth twice * PYRIDOXINE (VITAMIN B6) 100 M* Take 1 tablet by mouth once d* ZONISAMIDE 100 MG CAPSULE Take 1 capsule by mouth twice* BISACODYL 10 MG RECTAL SUPPOS* 1 Suppository by RECTAL route* MAGNESIUM HYDROXIDE 400 MG/5 * Take 15 mL by mouth once donya* TAMSULOSIN 0.4 MG CAPSULE Take 1 capsule by mouth daily* COMPOUNDED PRESCRIPTION Wheelchair with seat belt COMPOUNDED PRESCRIPTION [place] [employer]ift Problem List As Of Date 10/20/2020 Noted Resolved Seizure disorder (HCC) [G40.909] 12/28/2015 Screen for colon cancer [Z12.11] 01/02/2018 03/26/2018 Gallbladder polyp [K82.4] 03/13/2018 Ataxia [R27.0] 06/16/2020 Development delay [R62.50] 06/16/2020 Obstructive jaundice [K83.1] 08/28/2020 Jaundice [R17] 08/28/2020 Encounter Status:Closed by VIDHI SANTOS on 10/20/20 [facility] Office Visit (Urology)on Follow-up visit Diagnoses/Problems Assessed Benign prostatic hyperplasia with lower urinary tract symptoms (600.01) (N40.1) Nocturia (788.43) (R35.1) Urinary incontinence (788.30) (R32) Patient Discussion/Summary All available PSA values reviewed, Options discussed. Questions answered. Diet changes for prostate health discussed and educational information given. Pros/Cons of prostate health supplements discussed. Treatment options for LUTS reviewed Continue Flomax Observe ED Patient jaundice F/u PRN Chief Complaint 6 month follow up History of Present IllnessPatient is here for a 6 month follow up with PSA.. Current PSA is 2.98 (10/11) No Previous PSA..Chronic BPH with LUTs, He is currently on Flomax This does seem to help...Timed voidings seem to help as well..No Hx of dysuria or hematuria. No recent UTI sx....Cr 0.63 and BUN 13 (10/11) Review of Systems Constitutional:Jaundice Eyes: no eyesight problems. ENT: no hearing loss. Cardiovascular: no chest pain. Respiratory: no shortness of breath. Gastrointestinal: no abdominal pain. Genitourinary: as noted in HPI. Musculoskeletal: Decreased ROM. uses walker Neurological: a/o X3,. Psychiatric: not suicidal. Endocrine: erectile dysfunction. Hematologic/Lymphatic: Denies being on blood thinners. Active Problems Problems Benign prostatic hyperplasia with lower urinary tract symptoms (600.01) (N40.1) Nocturia (788.43) (R35.1) Urinary incontinence (788.30) (R32) Surgical History Problems No history of surgery Family History Mother Family history unknown (V49.89) (Z78.9) Father Family history unknown (V49.89) (Z78.9) Social History Problems Never a smoker Allergies Medication Camphor Crystals Recorded By: Radha Hoover; 12/22/2019 10:17:35 AM cloBAZam TABS Recorded By: Radha Hoover; 12/22/2019 10:17:35 AM levetiracetam Recorded By: Radha Hoover; 12/22/2019 10:17:35 AM Menthol Eucalyptus LIQD Recorded By: Radha Hoover; 12/22/2019 10:17:35 AM Turpentine Oil OIL Recorded By: Radha Hoover; 12/22/2019 10:17:35 AM Current Meds Medication NameInstruction lamoTRIgine 100 MG Oral Tablet Tamsulosin HCl - 0.4 MG Oral CapsuleTAKE 1 CAPSULE Bedtime Tamsulosin HCl - 0.4 MG Oral Capsule Zonisamide 100 MG Oral Capsule Vitals Vital Signs Recorded: 06Oct2020 09:32AM [id number] lb Tobacco Useb) No Fall Screeninga) No falls within the last year Physical Exam A/O x 3 in No apparent distress Constitutional:Jaundice Respiratory: Respiratory effort is normal Gastrointestinal:Abdomen is not tender Genitourinary: Kidneys: Not palpable Bilaterally Bladder: Not palpable or tender Signatures Electronically signed by : Ari Valles II, MD; Oct 06 2020 9:37AM EST (Author) [facility] [facility] Telephone (GASTMN) -- JESUS SHAVER ([id number]) 1955 M Date Time Provider Department 09/29/20 ADRIEN LU During your visit today, we recorded the following information about you: Adrien Lu MD 10/04/2020 8:21 AM Signed Was already scheduled for ERCP with Dr. Newman. Spoke to him, who states he has not met the patient, and prefers I do it given he was seen by me in the clinic. Schedulers, please call patient's caregiver at senior care to arrange: ERCP with me in next 2-3 weeks, 90 minutes case. May need help from IR physician to come and pull the drain. Adrien Lu MD July [facility] 10/12/2020 3:16 PM Signed Please have your schedulers reach out to [facility]. They were not aware of 10/13 with Vladic being canceled and rescheduled with you for 10/27. Can you have your loan secretary call [phone] to speak with Anastacia Nurse for patient to go over information for procedure. Thanks Adrien Lu MD 10/12/2020 5:49 PM Signed I spoke to the nurse Anastacia and explained the patient needs to be in Q3 at 9:30am on 10/27, and to fast after midnight. Adrien Lu MD Allergies As of Date: 09/29/2020 Noted Allergy Reaction KEPPRA (LEVETIRACETAM) 05/14/2015 14 - Other: See Comments Comments: Increased seizures VICKS VAPORUB (CANJT-JPGBCLJY-DNE*2015 2 - Rash Date Reviewed: 09/13/2020 Reviewed by: Kolton Grayson RN - Fully Assessed Reason for Visit: Appointment [186] Cmt: ERCP in next 2-[address] Lu Primary Visit Diagnosis:Calculus of bile duct without cholecystitis and without obstruction [K80.50] Order(s):ERCP GEN ANES [[id number]] Order #: [id number] FUTURE Prescriptions as of 09/29/2020 Sig: CERTAVITE-ANTIOXIDANT 18 MG-4* Take 1 tablet by mouth once d* CALCIUM CARBONATE 500 MG (1,2* TAKE (1) TABLET BY MOUTH TWIC* POLYETHYLENE GLYCOL 3350 17 G* Take 1 Packet by mouth once d* DIVALPROEX 500 MG TABLET,MARVA* Take 3 tablets by mouth daily* LAMOTRIGINE ER 100 MG TABLET,* Take 1 tablet by mouth once d* SENNOSIDES 8.6 MG TABLET Take 1 tablet by mouth twice * PYRIDOXINE (VITAMIN B6) 100 M* Take 1 tablet by mouth once d* ZONISAMIDE 100 MG CAPSULE Take 1 capsule by mouth twice* BISACODYL 10 MG RECTAL SUPPOS* 1 Suppository by RECTAL route* MAGNESIUM HYDROXIDE 400 MG/5 * Take 15 mL by mouth once donya* TAMSULOSIN 0.4 MG CAPSULE Take 1 capsule by mouth daily* COMPOUNDED PRESCRIPTION Wheelchair with seat belt COMPOUNDED PRESCRIPTION Charlotte Lift Problem List As Of Date 09/29/2020 Noted Resolved Seizure disorder (HCC) [G40.909] 12/28/2015 Screen for colon cancer [Z12.11] 01/02/2018 03/26/2018 Gallbladder polyp [K82.4] 03/13/2018 Ataxia [R27.0] 06/16/2020 Development delay [R62.50] 06/16/2020 Obstructive jaundice [K83.1] 08/28/2020 Jaundice [R17] 08/28/2020 Encounter Status:Closed by ADRIEN LU on 10/12/20 [facility] CNOVcharlie 09-28-2020 CNOV Office Visit (GGENMN ) -- JESUS SHAVER ([id number]) 1955 M Date Time Provider Department 09/28/20 10:30 AM ADRIEN LU GGENMN During your visit today, we recorded the following information about you: Pulse Respiration Blood pressure 90/minute 16/minute 111/70 Adrien Lu MD 09/29/2020 2:38 PM Addendum New Patient/Consult REASON FOR VISIT Jesus Shaver is a 65 year old male who is scheduled for a consult at the request of Self. CHIEF COMPLAINT Biliary obstruction My final recommendations will be communicated back to the requesting physician by the way of the shared medical record, fax, or via US Mail. HISTORY OF PRESENT ILLNESS This is a 65 year old man with history of MRDD, seizures disorder, cirrhosis, who lives in a senior care. He presented with obstructive jaundice in early August 2020. ERCP failed cannulation, and on 09/03 had PTHC showing choledocholithiasis causing biliary obstruction. Stones were unable to be removed and a right internal-external drain was placed. Bilirubin came down slightly and was discharged. Note from [facility] Emergency Department to Hospital Admission 08/28/2020 - 09/13/2020 Patient had hepatitis and EBV negative, unable to do MRI due to metal in the body, CT abdomen pelvis initially showed intrahepatic biliary dilatation with evidence of choledocholithiasis, status post ERCP on 08/30 which showed stenotic major papilla, status post pancreatic stent placement with biliary sphincterotomy. Repeat ERCP on 09/01 failed cannulation of the bile duct, PTHC drain placement on 09/03 with interventional radiology, instructions as below. Patient was treated with empiric Zosyn during that time. Patient has had prior liver biopsy that showed signs of early cirrhosis, received vitamin K on 08/30 with coagulopathy and thrombocytopenia. Patient developed worsening leukocytosis, bilirubin, hypotension on 09/09, CT abdomen repeat showed no acute findings, stents and biliary drain in place, blood cultures have been negative, initially started on Zosyn again but now discontinued. Patient has been continued on divalproex, lamotrigine, zonisamide for his seizure disorder. He does have chronic disability and is wheelchair-bound Usually lives at senior care but will have to go to SNF for biliary drain cares as instructed below. Patient is ready to discharge to SNF today ? PERTINENT PRIOR DIAGNOSTIC TESTING Luminal: ERCP - 09/01/2020 Findings: ? ? ?The residential therapist film was normal. The scope was advanced to a normal major ? ? ?papilla in the descending duodenum. Examination of the pharynx, ? ? ?larynx and associated structures, and upper GI tract was normal. A ? ? ?major papilla precut sphincterotomy had been performed. The major ? ? ?papilla was ulcerated, edematous, and distorted. Attempts to ? ? ?cannulate the CBD were not successful with a variety of wires--035 ? ? ?jag, 035 dream, 025 Vizi, and Novagold>>>could not cross into duct ? ? ?and for the most part I was only entering into what appeared to be a ? ? ?submucosal tract. PD stent placed to facilitate cannulation and for ? ? ?prophylaxis. The ventral pancreatic duct was deeply cannulated with ? ? ?the short-nosed traction sphincterotome. Revolution--0.025 inch was ? ? ?passed into the ventral pancreatic duct. One 5 Fr by 7 cm pancreatic ? ? ?stent with a 3/4 external pigtail was placed into the ventral ? ? ?pancreatic duct for prophylaxis. Fluid flowed through the stent. The ? ? ?stent was in good position. Extra Luminal: CT ABD/PEL W IVCON - 09/09/2020 COMPARISON: 08/29/2020 CT of abdomen and pelvis with contrast LIMITATIONS: ?Streak artifact from the overlapping arms and head. ?Motion artifact. RESULT: Lower chest: Small bilateral pleural effusions and mild bibasilar dependent atelectasis, increased compared to 08/29/2020. Peritoneum/mesentery: There is no free intraperitoneal air or significant free fluid. Liver: No mass. Biliary: Gallbladder is absent. ?Internal/external biliary drainage catheter entering the inferior right lobe and coursing through the right lobe duct system through the common duct and ampulla with the distal retention: Loop formed in the duodenum just below the ampulla. Spleen: Normal. Pancreas: Pancreatic duct stent in place coursing through the pancreatic head and neck region into the duodenal lumen. ?No dilation of the pancreatic duct or pancreatic parenchymal mass. Adrenals: Normal. Kidneys/urinary: Normal. GI tract: No dilated bowel or bowel wall thickening. Appendix: Not seen. Lymph nodes: Negative. Vasculature: Unremarkable. Pelvis: No mass or fluid collection. Bones/soft tissue: Chronic appearing compression deformities of T12 and L3. Labs: Results for EPIFANIO SHAVER ( ) as of 09/21/2020 16:31 Ref. Range 09/13/2020 07:54 Glucose Latest R (more content not included)... Normal [facility] Candelario 09-27-2020 RANDELL Telephone ([facility]) -- SIVAKUMARJESUS Valentin ([id number]) 1955 M Date Time Provider Department 09/27/20 DARREN RED During your visit today, we recorded the following information about you: Fredis Cunningham DENISE 09/27/2020 7:52 PM Signed Pulled [facility] ER report for patient upcoming visit and appears that patient is currently at [facility] with Dr Red taking care of him as medical photographer of facility. Allergies As of Date: 09/27/2020 Noted Allergy Reaction KEPPRA (LEVETIRACETAM) 05/14/2015 14 - Other: See Comments Comments: Increased seizures VICKS VAPORUB ([id number]*2015 2 - Rash Date Reviewed: 09/13/2020 Reviewed by: Kolton Grayson RN - Fully Assessed Reason for Visit: FYI-No Action Needed [265] Prescriptions as of 09/27/2020 Sig: CERTAVITE-ANTIOXIDANT 18 MG-4* Take 1 tablet by mouth once d* CALCIUM CARBONATE 500 MG (1,2* TAKE (1) TABLET BY MOUTH TWIC* POLYETHYLENE GLYCOL 3350 17 G* Take 1 Packet by mouth once d* DIVALPROEX 500 MG TABLET,MARVA* Take 3 tablets by mouth daily* LAMOTRIGINE ER 100 MG TABLET,* Take 1 tablet by mouth once d* SENNOSIDES 8.6 MG TABLET Take 1 tablet by mouth twice * PYRIDOXINE (VITAMIN B6) 100 M* Take 1 tablet by mouth once d* ZONISAMIDE 100 MG CAPSULE Take 1 capsule by mouth twice* BISACODYL 10 MG RECTAL SUPPOS* 1 Suppository by RECTAL route* MAGNESIUM HYDROXIDE 400 MG/5 * Take 15 mL by mouth once donya* TAMSULOSIN 0.4 MG CAPSULE Take 1 capsule by mouth daily* COMPOUNDED PRESCRIPTION Wheelchair with seat belt COMPOUNDED PRESCRIPTION [place] Problem List As Of Date 09/27/2020 Noted Resolved Seizure disorder (HCC) [G40.909] 12/28/2015 Screen for colon cancer [Z12.11] 01/02/2018 03/26/2018 Gallbladder polyp [K82.4] 03/13/2018 Ataxia [R27.0] 06/16/2020 Development delay [R62.50] 06/16/2020 Obstructive jaundice [K83.1] 08/28/2020 Jaundice [R17] 08/28/2020 Encounter Status:Closed by FREDIS CUNNINGHAM LPN on 09/27/20 Normal [facility] CNCOon 09-14-2020 CNCO Letter Text Normal [facility] CBC and Differentialon 09-13 Abs Baso 0.00 k/uL Normal <0.11 [facility] Abs [place] 0.93 k/uL High <0.87 [facility] Abs Neut 5.65 k/uL Normal 1.45-7.50 [facility] ANC(includeSEG+BAND) 5.65 k/uL Normal [facility] Anisocytosis Ql (Bld) Present Normal [facility] Basophils/100 WBC (Bld) 0.0 % Normal [facility] DTYPE Manual Diff Normal [facility] Eosinophils (Bld) [#/Vol] 0.10 10*3/uL Normal <0.46 [facility] Eosinophils/100 WBC (Bld) 1.0 % Normal [facility] Erythrocyte distribution width (RBC) [Ratio] 24.6 % High 11.5-15.0 [facility] Hematocrit (Bld) [Volume fraction] 24.6 % Low 39.0-51.0 [facility] Hemoglobin (Bld) [Mass/Vol] 8.4 g/dL Low 13.0-17.0 [facility] Left Shift Present Normal [facility] Lymphocytes (Bld) [#/Vol] 2.88 10*3/uL Normal 1.00-4.00 [facility] Lymphocytes/100 WBC (Bld) 28.0 % Normal [facility] MCH 33.7 pG Normal 26.0-34.0 [facility] MCHC (RBC) [Mass/Vol] 34.1 g/dL Normal 30.5-36.0 [facility] MCV (RBC) [Entitic vol] 98.8 fL Normal 80.0-100.0 [facility] Metamyelocytes/100 WBC (Bld) 2.0 % Normal [facility] Monocytes/100 WBC (Bld) 9.0 % Normal [facility] Myelo% 5.0 % Normal [facility] Neutrophils/100 WBC (Bld) 55.0 % Normal [facility] Platelet Estimate Platelet estimate decreased Normal [facility] Platelet mean volume (Bld) [Entitic vol] 13.6 fL High 9.0-12.7 [facility] Platelets (Bld) [#/Vol] 119 10*3/uL Low 150-400 [facility] Comment on above: Result Comment: Samp le checked for a clot. Polychromasia Slight Normal [facility] RBC (Bld) [#/Vol] 2.49 10*6/uL Low 4.20-6.00 [facility] Target Cells Moderate Normal [facility] WBC (Bld) [#/Vol] 10.28 10*3/uL Normal 3.70-11.00 [facility] CNDSon 09-13-2020 CNDS HNO ID: [id number] Author: Monique Mercedes MD Service: Hospital Medicine Author Type: Physician Type: Discharge Summary Filed: 09/13/2020 7:52 PM Note Text: DISCHARGE SUMMARY PATIENT NAME: Jesus Shaver ADMISSION DATE: 08/28/2020 DISCHARGE DATE: 09/13/2020 ATTENDING PHYSICIAN: Monique Mercedes MD Code Status: Not on file Highest Readmission Risk Score: 29 The 30 day readmissions risk score is derived from an internally validated risk model which evaluates patient level characteristics, utilization history, medication orders and lab results up until the day of discharge. Patients with a score of 40 or above are considered highest risk for readmission. Specific patient level drivers will be listed at the bottom of the summary. CONSULTING TEAMS DURING HOSPITALIZATION: Cardiology: María Aguilar Gastroenterology: Venkatesh Torres Infectious Disease: [facility] Treatment Team: Attending Provider: Monique Mercedes MD Consulting: Frandy Dela Cruz MD Primary Service: [place] [id number] Consulting: [facility] MD Consulting: Adam Caal MD REASON FOR HOSPITALIZATION: Jaundice DIAGNOSIS: Principal Problem: Jaundice POA: Yes Active Problems: Seizure disorder (HCC) POA: Yes Ataxia POA: Yes Development delay POA: Yes Obstructive jaundice POA: Yes Resolved Problems: * No resolved hospital problems. * Sepsis Ruled Out OPERATIONS DURING HOSPITALIZATION: ERCP 08/30 ?- The major papilla appeared to be stenotic. ?- One pancreatic stent was placed into the ?ventral pancreatic duct. ?- A biliary sphincterotomy was performed. ?- One stent was removed from the pancreatic duct. ERCP 09/01 1. Failed cannulation of the bile duct. 2. One pancreatic stent was placed into the ?ventral pancreatic duct. Recommendation: ?1. PTHC. IR biliary drain placement 09/03 TRANSHEPATIC CHOLANGIOGRAM DEMONSTRATES CHOLEDOCHOLITHIASIS CAUSING BILIARY OBSTRUCTION. ATTEMPTED STONE REMOVAL WAS UNSUCCESSFUL. RIGHT INTERNAL-EXTERNAL BILIARY DRAINAGE PLACEMENT. PLAN: Flush catheter every other day with sterile normal saline to maintain patency. Catheter may be allowed to drain passively to bag. Flush and cap catheter for internal drainage prior to discharge. Patient may return in 6 weeks for exchange and repeat attempt at stone removal. PROCEDURES DURING HOSPITALIZATION: Chest x-ray 08/28 Questionable small left effusion. ?No infiltrate CT abdomen pelvis 08/29 Mild intrahepatic biliary dilatation. Evidence of choledocholithiasis. ?Mild thickening of the extrahepatic biliary ductal wall. Mild diffuse thickening of the wall of the urinary bladder. ?Mildly enlarged prostate. Minor atelectasis both lung bases. ?Remote compression fracture T12. CT abdomen pelvis 09/09 No acute findings in the abdomen and pelvis. Pancreatic duct stent and internal/external percutaneous biliary drainage catheter in place. ?No dilated bile ducts or pancreatic duct. HOSPITAL COURSE: Jesus Shaver is a 65-year-old male with history of MRDD, seizure disorder, cirrhosis, admitted from senior care and transferred from [facility] for obstructive jaundice. Patient had hepatitis and EBV negative, unable to do MRI due to metal in the body, CT abdomen pelvis initially showed intrahepatic biliary dilatation with evidence of choledocholithiasis, status post ERCP on 08/30 which showed stenotic major papilla, status post pancreatic stent placement with biliary sphincterotomy. Repeat ERCP on 09/01 failed cannulation of the bile duct, PTHC drain placement on 09/03 with interventional radiology, instructions as below. Patient was treated with empiric Zosyn during that time. Patient has had prior liver biopsy that showed signs of early cirrhosis, received vitamin K on 08/30 with coagulopathy and thrombocytopenia. Patient developed worsening leukocytosis, bilirubin, hypotension on 09/09, CT abdomen repeat showed no acute findings, stents and biliary drain in place, blood cultures have been negative, initially started on Zosyn again but now discontinued. Patient has been continued on divalproex, lamotrigine, zonisamide for his seizure disorder. He does have chronic disability and is wheelchair-bound Usually lives at senior care but will have to go to SNF for biliary drain cares as instructed below. Patient is ready to discharge to SNF today Transitions of Care Critical Issues: NEW BASELINE FOR PATIENT: Biliary drain in place LAB MONITORING NEEDED: LFTs in 1 week SPECIALIST FOLLOW-UP: Follow-up with interventional radiology, for follow-up of drain, GI team LABS AND PROCEDURES PENDING AT DISCHARGE: No pending results. PATIENT CONDITION AT DISCHARGE: Fair DISCHARGE DISPOSITION: Jail Facility {PHYSICAL EXAM General awake, confused, jaundiced HEENT atraumatic/normocephalic, scleral icterus Neck Soft supple, no (more content not included)... Normal [facility] Comp Metabolic Panelon 09-13 Albumin [Mass/Vol] 2.5 g/dL Low 3.9-4.9 [facility] ALP [Catalytic activity/Vol] 201 U/L High 38-113 [facility] ALT [Catalytic activity/Vol] 43 U/L Normal 10-54 [facility] Anion gap [Moles/Vol] 10 mmol/L Normal 9-18 [facility] AST [Catalytic activity/Vol] 89 U/L High 14-40 [facility] Bilirubin [Mass/Vol] 11.1 mg/dL High 0.2-1.3 [facility] Calcium [Mass/Vol] 9.6 mg/dL Normal 8.5-10.2 [facility] Chloride [Moles/Vol] 113 mmol/L High 97-105 [facility] CO2 [Moles/Vol] 23 mmol/L Normal 22-33 [facility] Creatinine [Mass/Vol] 0.88 mg/dL Normal 0.73-1.22 [facility] eGFR- Amer. >60 Normal [facility] eGFR-All Other Races >60 Normal [facility] Comment on above: Result Comment: eGFR (Estimated GFR) Units of measure: mL/min/1.73 meters squared eGFR is derived from the reexpressed MDRD Study equation using the following parameters: serum creatinine, age, gender and race. The creatinine assay has been calibrated to be traceable to IDMS. An eGFR <60 mL/min/1.73m2 for >3 months is consistent with chronic kidney disease. Refer to KDOQI guidelines for clinical interpretation. In patients with unstable renal function, e.g. those with acute kidney injury, the eGFR may not accurately reflect actual GFR. Glucose [Mass/Vol] 72 mg/dL Low 74-99 [facility] Potassium [Moles/Vol] 4.1 mmol/L Normal 3.7-5.1 [facility] Protein [Mass/Vol] 5.2 g/dL Low 6.3-8.0 [facility] Sodium [Moles/Vol] 146 mmol/L High 136-144 [facility] Urea nitrogen [Mass/Vol] 28 mg/dL High 9-24 [facility] Magnesiumon 09-13-2020 Magnesium [Mass/Vol] 2.3 mg/dL Normal 1.7-2.3 [facility] NURSING PROGon 09-13-2020 NURSING PROG HNO ID: [id number] Author: Kolton Grayson RN Service: ASSESSMENT Author Type: Registered Nurse Type: Nursing Progress Note Filed: 09/13/2020 2:12 PM Note Text: Nursing Progress Note Patient Name: Jesus Shaver Patient Location: [place] [address] [address] Daily Note:pt is awake with baseline orientation and confusion. Jaundiced. Speech garbled which is standard. He requires total care, has indwelling bili cath with bile drainage and condom cath with danilo brown urine. IV is capped and patent. Remains incont of bladder and tele intact. Bed low, locked and alarmed call light within reach and pt encouraged to call for asst. 1400 discharge paperwork included with all belongings, tele and Iv removed, pt prepared for d/c and report called into [facility] at [phone]. This note was completed by: Kolton Grayson [facility] Phosphoruson 09-13-2020 Phosphate [Mass/Vol] 2.6 mg/dL Low 2.7-4.8 [facility] Protimeon 09-13-2020 PT INR 1.1 Normal 0.9-1.3 [facility] Comment on above: Result Comment: Rocio min K Antagonist (VKA) Therapeutic Range: INR 2 to 3 (Target INR of 2.5) Note: For patients treated with VKA drugs, such as warfarin, the [place] [employer] 2012 Guideline recommends a therapeutic INR range of 2 to 3 (target INR of 2.5). This recommendation includes high-risk patients with antiphospholipid syndrome with previous arterial or venous thromboembolism, current-generation mechanical or bioprosthetic aortic heart valve replacement. Note: Patients with mechanical aortic valve replacement and additional risk factors for thromboembolic events (atrial fibrillation, previous thromboembolism, LV dysfunction, hypercoagulable conditions) or an older generation mechanical AVR (i.e., ball in-Cage) or any mechanical MVR should have a INR therapeutic range of 2.5 to 3.5 (target INR of 3). Elvi GH, et al. Chest 2012, 141:7S-47S Jermaine RA, et al. [facility] 2017, 70: 252-289 PT Sec 11.8 sec Normal 9.7-13.0 [facility] CBC and Differentialon 09-12 Abs Baso 0.12 k/uL High <0.11 [facility] Abs [place] 1.69 k/uL High <0.87 [facility] Abs Neut 7.37 k/uL Normal 1.45-7.50 [facility] ANC(includeSEG+BAND) 7.37 k/uL Normal [facility] Anisocytosis Ql (Bld) Present Normal [facility] Basophils/100 WBC (Bld) 1.0 % Normal [facility] DTYPE Manual Diff Normal [facility] Eosinophils (Bld) [#/Vol] 0.12 10*3/uL Normal <0.46 [facility] Eosinophils/100 WBC (Bld) 1.0 % Normal [facility] Erythrocyte distribution width (RBC) [Ratio] 24.1 % High 11.5-15.0 [facility] Hematocrit (Bld) [Volume fraction] 25.9 % Low 39.0-51.0 [facility] Hemoglobin (Bld) [Mass/Vol] 8.9 g/dL Low 13.0-17.0 [facility] Left Shift Present Normal [facility] Lymphocytes (Bld) [#/Vol] 2.18 10*3/uL Normal 1.00-4.00 [facility] Lymphocytes/100 WBC (Bld) 18.0 % Normal [facility] MCH 33.5 pG Normal 26.0-34.0 [facility] MCHC (RBC) [Mass/Vol] 34.4 g/dL Normal 30.5-36.0 [facility] MCV (RBC) [Entitic vol] 97.4 fL Normal 80.0-100.0 [facility] Metamyelocytes/100 WBC (Bld) 3.0 % Normal [facility] Monocytes/100 WBC (Bld) 14.0 % Normal [facility] Myelo% 2.0 % Normal [facility] Neutrophils/100 WBC (Bld) 61.0 % Normal [facility] Platelet Estimate Platelet estimate decreased Normal [facility] Platelet mean volume (Bld) [Entitic vol] 12.5 fL Normal 9.0-12.7 [facility] Platelets (Bld) [#/Vol] 96 10*3/uL Low 150-400 [facility] Comment on above: Result Comment: [facility]. Polychromasia Slight Normal [facility] RBC (Bld) [#/Vol] 2.66 10*6/uL Low 4.20-6.00 [facility] RBC Fragments Few Normal [facility] Target Cells Few Normal [facility] WBC (Bld) [#/Vol] 12.09 10*3/uL High 3.70-11.00 [facility] Comp Metabolic Panelon 09-12 Albumin [Mass/Vol] 2.2 g/dL Low 3.9-4.9 [facility] Albumin [Mass/Vol] 2.3 g/dL Low 3.9-4.9 [facility] ALP [Catalytic activity/Vol] 193 U/L High 38-113 [facility] ALP [Catalytic activity/Vol] 190 U/L High 38-113 [facility] ALT [Catalytic activity/Vol] 40 U/L Normal 10-54 [facility] Anion gap [Moles/Vol] 10 mmol/L Normal 9-18 [facility] AST [Catalytic activity/Vol] 82 U/L High 14-40 [facility] AST [Catalytic activity/Vol] 79 U/L High 14-40 [facility] Bilirubin [Mass/Vol] 11.4 mg/dL High 0.2-1.3 [facility] Bilirubin [Mass/Vol] 11.2 mg/dL High 0.2-1.3 [facility] Calcium [Mass/Vol] 9.3 mg/dL Normal 8.5-10.2 [facility] Chloride [Moles/Vol] 111 mmol/L High 97-105 [facility] CO2 [Moles/Vol] 22 mmol/L Normal 22-33 [facility] Creatinine [Mass/Vol] 0.75 mg/dL Normal 0.73-1.22 [facility] Creatinine [Mass/Vol] 0.74 mg/dL Normal 0.73-1.22 [facility] eGFR- Amer. >60 Normal [facility] eGFR-All Other Races >60 Normal [facility] Comment on above: Result Comment: eGFR (Estimated GFR) Units of measure: mL/min/1.73 meters squared eGFR is derived from the reexpressed MDRD Study equation using the following parameters: serum creatinine, age, gender and race. The creatinine assay has been calibrated to be traceable to IDMS. An eGFR <60 mL/min/1.73m2 for >3 months is consistent with chronic kidney disease. Refer to KDOQI guidelines for clinical interpretation. In patients with unstable renal function, e.g. those with acute kidney injury, the eGFR may not accurately reflect actual GFR. Glucose [Mass/Vol] 76 mg/dL Normal 74-99 [facility] Glucose [Mass/Vol] 74 mg/dL Normal 74-99 [facility] Potassium [Moles/Vol] 3.6 mmol/L Low 3.7-5.1 [facility] Potassium [Moles/Vol] 3.7 mmol/L Normal 3.7-5.1 [facility] Protein [Mass/Vol] 5.1 g/dL Low 6.3-8.0 [facility] Protein [Mass/Vol] 5.0 g/dL Low 6.3-8.0 [facility] Sodium [Moles/Vol] 143 mmol/L Normal 136-144 [facility] Urea nitrogen [Mass/Vol] 27 mg/dL High 01-14 [facility] Urea nitrogen [Mass/Vol] 28 mg/dL High 01-14 [facility] Magnesiumon 09-12-2020 Magnesium [Mass/Vol] 2.3 mg/dL Normal 1.7-2.3 [facility] NURSING PROGon 09-12-2020 NURSING PROG HNO ID: [id number] Author: Zulay Bishop RN Service: Nursing Author Type: Registered Nurse Type: Nursing Progress Note Filed: 09/13/2020 7:39 AM Note Text: Nursing Progress Note Patient Name: Jesus Shaver Patient Location: [facility] Daily Note: 2000: Assessment as charted. Pt denies pain at this time. Lung sounds diminished. Abdomen soft, nontender, bowel sounds present. R bili drain patent, draining bile. Condom cath present, draining danilo brown fluid. IV capped. Call light within reach, bed alarm on. This note was completed by: Zulay Bishop [facility] NURSING PROG HNO ID: [id number] Author: Anitra Reno RN Service: ? Author Type: Registered Nurse Type: Nursing Progress Note Filed: 09/12/2020 6:11 PM Note Text: Nursing Progress Note Patient Name: Jesus Shaver Patient Location: [facility] Daily Note: 0657: pt is resting in bed, has no complaints. 0740: pt is resting in bed, has no complaints, assessment completed iv site observed, wnl, right upper biliary drain checked, drains small amount of brown discharge, external catheter in place with danilo urine, call light, bedside tray within reach, instructed to use, verbalized understanding, bed in low position, locked, bed alarm on and functioning. 0945: pt took all his po meds whole with apple sauce, biliary drain flushed well. 1130: pt is resting in bed, repositioned, continues iv antibiotic treatment, iv flushed well. 1418: pt is resting in bed, repositioned, has no complaints, call light within reach, bed alarm on and functioning. 1620: pt is sleeping, repositioned. 1800: pt is resting in bed, repositioned, will work on his dinner. This note was completed by: Anitra Reno Normal [facility] Phosphoruson 09-12-2020 Phosphate [Mass/Vol] 2.3 mg/dL Low 2.7-4.8 [facility] Protimeon 09-12-2020 PT INR 1.1 Normal 0.9-1.3 [facility] Comment on above: Result Comment: Rocio min K Antagonist (VKA) Therapeutic Range: INR 2 to 3 (Target INR of 2.5) Note: For patients treated with VKA drugs, such as warfarin, the [place] [employer] 2012 Guideline recommends a therapeutic INR range of 2 to 3 (target INR of 2.5). This recommendation includes high-risk patients with antiphospholipid syndrome with previous arterial or venous thromboembolism, current-generation mechanical or bioprosthetic aortic heart valve replacement. Note: Patients with mechanical aortic valve replacement and additional risk factors for thromboembolic events (atrial fibrillation, previous thromboembolism, LV dysfunction, hypercoagulable conditions) or an older generation mechanical AVR (i.e., ball in-Cage) or any mechanical MVR should have a INR therapeutic range of 2.5 to 3.5 (target INR of 3). Elvi GH, et al. Chest 2012, 141:7S-47S Jermaine RA, et al. JAC 2017, 70: 252-289 PT Sec 11.5 sec Normal 9.7-13.0 [facility] Comp Metabolic Panelon 09-11 Albumin [Mass/Vol] 2.4 g/dL Low 3.9-4.9 [facility] ALP [Catalytic activity/Vol] 212 U/L High 38-113 [facility] ALT [Catalytic activity/Vol] 37 U/L Normal 10-54 [facility] Anion gap [Moles/Vol] 10 mmol/L Normal 9-18 [facility] AST [Catalytic activity/Vol] 73 U/L High 14-40 [facility] Bilirubin [Mass/Vol] 12.1 mg/dL High 0.2-1.3 [facility] Calcium [Mass/Vol] 9.7 mg/dL Normal 8.5-10.2 [facility] Chloride [Moles/Vol] 110 mmol/L High 97-105 [facility] CO2 [Moles/Vol] 24 mmol/L Normal 22-33 [facility] Creatinine [Mass/Vol] 0.79 mg/dL Normal 0.73-1.22 [facility] eGFR- Amer. >60 Normal [facility] eGFR-All Other Races >60 Normal [facility] Comment on above: Result Comment: eGFR (Estimated GFR) Units of measure: mL/min/1.73 meters squared eGFR is derived from the reexpressed MDRD Study equation using the following parameters: serum creatinine, age, gender and race. The creatinine assay has been calibrated to be traceable to IDMS. An eGFR <60 mL/min/1.73m2 for >3 months is consistent with chronic kidney disease. Refer to KDOQI guidelines for clinical interpretation. In patients with unstable renal function, e.g. those with acute kidney injury, the eGFR may not accurately reflect actual GFR. Glucose [Mass/Vol] 99 mg/dL Normal 74-99 [facility] Potassium [Moles/Vol] 3.9 mmol/L Normal 3.7-5.1 [facility] Protein [Mass/Vol] 5.4 g/dL Low 6.3-8.0 [facility] Sodium [Moles/Vol] 144 mmol/L Normal 136-144 [facility] Urea nitrogen [Mass/Vol] 32 mg/dL High 9-24 [facility] Magnesiumon 09-11-2020 Magnesium [Mass/Vol] 2.5 mg/dL High 1.7-2.3 [facility] NURSING PROGon 09-11-2020 NURSING PROG HNO ID: [id number] Author: Zulay Bishop RN Service: Nursing Author Type: Registered Nurse Type: Nursing Progress Note Filed: 09/12/2020 7:54 AM Note Text: Nursing Progress Note Patient Name: Jesus Shaver Patient Location: [facility]-365/[facility]-1 Daily Note: 2124: Assessment as charted. Pt denies pain at this time. Lung sounds diminished. Abdomen soft, bowel sounds present. R bili drain patent, draining bile. Condom cath present, draining danilo brown fluid. IV fluids infusing per order. Call light within reach, bed alarm on. This note was completed by: Zulay Bishop [facility] [facility] [place] NURSING PROG HNO ID: [id number] Author: Kolton Grayson RN Service: ASSESSMENT Author Type: Registered Nurse Type: Nursing Progress Note Filed: 09/11/2020 6:34 PM Note Text: Nursing Progress Note Patient Name: Jesus Shaver Patient Location: [facility]-365/[facility]-1 Daily Note:pt awake and alert to self and others, IV capped to R UE non tender, incont with bili drain with bile drainaged noted spilled to bed. Dressing c/d/i, condom cath and complete bed change and am care performed. Pt bed low,locked and alarmed. Call light placed within reach. 1230 pgd attending as pt bp and urine output low, pt has developmental impairment with decreased po intake and currently no maintenance IVF. New Iv placed 22g to L wrist d/t new s/s of palpable venous cord to R hand IV. Removed and dressed with press applied. 1250 new orders 1320 pt resting in bed, repo for comfort. incont care provided and bed alarm reapplied to low locked bed. Call button placed within reach. Main fluids running. 1831 sat to feed pt, he continued to spit out food and state "I do not want to eat", RN reattempts to feed pt unsuccessful. Pt did drink 240cc ensure from RN.provided water and pt refused to drink. This note was completed by: Kolton Grayson [facility] NURSING PROG HNO ID: [id number] Author: Elzbieta Le RN Service: ? Author Type: Registered Nurse Type: Nursing Progress Note Filed: 09/11/2020 12:45 AM Note Text: Nursing Progress Note Patient Name: Jesus Shaver Patient Location: [facility]-365/[facility]-365-1 Daily Note: 1999 Patient assessment completed as charted. AOx1, on RA, VSS. Denies any pain, SOB, dizziness, ACEVES, or N/V. IV sites WNL, flushed AND capped. R biliary drain to gravity drainage w/ bile output. Ext condom cath to lindsey bag w/ danilo urine output. Pt skin is jaundiced. Pt resting in bed, Q2T. Call lights within reach. Bed alarm on for safety. Will monitor. 0044 Prior assessment unchanged. Safety maintained. Q2T. Will cont to monitor. This note was completed by: Elzbieta Le [facility] Phosphoruson 09-11-2020 Phosphate [Mass/Vol] 2.3 mg/dL Low 2.7-4.8 [facility] Protimeon 09-11-2020 PT INR 1.1 Normal 0.9-1.3 [facility] Comment on above: Result Comment: Rocio min K Antagonist (VKA) Therapeutic Range: INR 2 to 3 (Target INR of 2.5) Note: For patients treated with VKA drugs, such as warfarin, the [place] [employer] 2012 Guideline recommends a therapeutic INR range of 2 to 3 (target INR of 2.5). This recommendation includes high-risk patients with antiphospholipid syndrome with previous arterial or venous thromboembolism, current-generation mechanical or bioprosthetic aortic heart valve replacement. Note: Patients with mechanical aortic valve replacement and additional risk factors for thromboembolic events (atrial fibrillation, previous thromboembolism, LV dysfunction, hypercoagulable conditions) or an older generation mechanical AVR (i.e., ball in-Cage) or any mechanical MVR should have a INR therapeutic range of 2.5 to 3.5 (target INR of 3). Elvi GH, et al. Chest 2012, 141:7S-47S Jermaine RA, et al. [facility] 2017, 70: 252-289 PT Sec 11.4 sec Normal 9.7-13.0 [facility] CASE MANAGEMon 09-10-2020 CASE MANAGEM HNO ID: [id number] Author: EZE Del Rio Service: Social Work Author Type: Supervisor Public Health Nursing Type: Care Mgt Progress Note Filed: 09/10/2020 3:51 PM Note Text: CARE MANAGEMENT PROGRESS NOTE SERVICE DATE: 09/10/2020 SERVICE TIME: 3:43 PM LOS: 13 days Needs Prior to Discharge: Other: See Comment;Discharge Transportation (Medical clearance) SW continuing to follow for support and d/c planning. Everything is set for patient to d/c to [facility] at hospital d/c. Patient will need stretcher transport. Await medical clearance. Guardian Mandy with [facility] [phone] [facility] emergency medical number [phone] [employer] [phone] SIGNATURE: EZE Del Rio PATIENT NAME: Jesus Shaver DATE: September 10, 2020 TIME: 3:43 PM PAGER/CONTACT #: [phone] Normal [facility] CBC and Differentialon 09-10 Abs Baso 0.14 k/uL High <0.11 [facility] Abs [place] 3.00 k/uL High <0.87 [facility] Abs Neut 7.36 k/uL Normal 1.45-7.50 [facility] ANC(includeSEG+BAND) 7.36 k/uL Normal [facility] Anisocytosis Ql (Bld) Present Normal [facility] Basophils/100 WBC (Bld) 1.0 % Normal [facility] DTYPE Manual Diff Normal [facility] Eosinophils (Bld) [#/Vol] 0.00 10*3/uL Normal <0.46 [facility] Eosinophils/100 WBC (Bld) 0.0 % Normal [facility] Erythrocyte distribution width (RBC) [Ratio] 23.0 % High 11.5-15.0 [facility] Hematocrit (Bld) [Volume fraction] 24.0 % Low 39.0-51.0 [facility] Hemoglobin (Bld) [Mass/Vol] 8.4 g/dL Low 13.0-17.0 [facility] Left Shift Present Normal [facility] Lymphocytes (Bld) [#/Vol] 2.04 10*3/uL Normal 1.00-4.00 [facility] Lymphocytes/100 WBC (Bld) 15.0 % Normal [facility] MCH 33.6 pG Normal 26.0-34.0 [facility] MCHC (RBC) [Mass/Vol] 35.0 g/dL Normal 30.5-36.0 [facility] MCV (RBC) [Entitic vol] 96.0 fL Normal 80.0-100.0 [facility] Metamyelocytes/100 WBC (Bld) 4.0 % Normal [facility] Monocytes/100 WBC (Bld) 22.0 % Normal [facility] Myelo% 4.0 % Normal [facility] Neutrophils/100 WBC (Bld) 54.0 % Normal [facility] Platelet Estimate Platelet estimate decreased Normal [facility] Platelet mean volume (Bld) [Entitic vol] 12.3 fL Normal 9.0-12.7 [facility] Platelets (Bld) [#/Vol] 83 10*3/uL Low 150-400 [facility] Comment on above: Result Comment: [facility]. Polychromasia Slight Normal [facility] RBC (Bld) [#/Vol] 2.50 10*6/uL Low 4.20-6.00 [facility] Spherocytes Few Normal [facility] Target Cells Moderate Normal [facility] WBC (Bld) [#/Vol] 13.63 10*3/uL High 3.70-11.00 [facility] Comp Metabolic Panelon 09-10 Albumin [Mass/Vol] 2.3 g/dL Low 3.9-4.9 [facility] ALP [Catalytic activity/Vol] 246 U/L High 38-113 [facility] ALT [Catalytic activity/Vol] 38 U/L Normal 10-54 [facility] Anion gap [Moles/Vol] 11 mmol/L Normal 9-18 [facility] AST [Catalytic activity/Vol] 73 U/L High 14-40 [facility] Bilirubin [Mass/Vol] 13.3 mg/dL High 0.2-1.3 [facility] Calcium [Mass/Vol] 9.5 mg/dL Normal 8.5-10.2 [facility] Chloride [Moles/Vol] 108 mmol/L High 97-105 [facility] CO2 [Moles/Vol] 22 mmol/L Normal 22-33 [facility] Creatinine [Mass/Vol] 0.94 mg/dL Normal 0.73-1.22 [facility] Comment on above: Result Comment: Resu lt may be falsely decreased due to icteric interference. eGFR- Amer. >60 Normal [facility] eGFR-All Other Races >60 Normal [facility] Comment on above: Result Comment: eGFR (Estimated GFR) Units of measure: mL/min/1.73 meters squared eGFR is derived from the reexpressed MDRD Study equation using the following parameters: serum creatinine, age, gender and race. The creatinine assay has been calibrated to be traceable to [employer]. An eGFR <60 mL/min/1.73m2 for >3 months is consistent with chronic kidney disease. Refer to KDOQI guidelines for clinical interpretation. In patients with unstable renal function, e.g. those with acute kidney injury, the eGFR may not accurately reflect actual GFR. Glucose [Mass/Vol] 109 mg/dL High 74-99 [facility] Potassium [Moles/Vol] 4.2 mmol/L Normal 3.7-5.1 [facility] Protein [Mass/Vol] 5.7 g/dL Low 6.3-8.0 [facility] Sodium [Moles/Vol] 141 mmol/L Normal 136-144 [facility] Urea nitrogen [Mass/Vol] 31 mg/dL High 9-24 [facility] Magnesiumon 09-10-2020 Magnesium [Mass/Vol] 2.6 mg/dL High 1.7-2.3 [facility] NURSING PROGon 09-10-2020 NURSING PROG HNO ID: [id number] Author: Kolton Grayson RN Service: ASSESSMENT Author Type: Registered Nurse Type: Nursing Progress Note Filed: 09/10/2020 6:31 PM Note Text: Nursing Progress Note Patient Name: Jesus Shaver Patient [facility]: [facility] Daily Note:assumed care of pt. 1829 pt resting in bed alert to self and others, disoriented to time and place. Pt jaundiced with intact R bili drain with bile content. Pt turned and repo for comfort. Condom cath changed and call light placed within reach. Bed low locked and alarmed. Pt meal has been ordered and awaiting arrival. atb infusing to R UE patent non tender IV. Removed 22g at forearm d/t leaking. This note was completed by: Kolton Grayson [facility] NURSING PROG HNO ID: [id number] Author: Elzbieta Gonsales RN Service: ? Author Type: Registered Nurse Type: Nursing Progress Note Filed: 09/10/2020 9:56 AM Note Text: Nursing Progress Note Patient Name: Jesus Shaver Patient Location: [facility] Daily Note: 0700 assumed care of pt, resting comfortably with no needs, safety checks in reach, bed alarm on and functioning. 0825 assessment as charted, VSS on RA, pt aaox1, disoriented to time and place. Developmental delay noted, pt nonverbal but will answer questions and follow simple commands. Bili drain intact draining bile to GD, condom cath intact draining danilo urine to GD. Safety checks in place, possessions in reach, bed alarm on and functioning. This note was completed by: Elzbieta Gonsales Normal [facility] Phosphoruson 09-10-2020 Phosphate [Mass/Vol] 2.6 mg/dL Low 2.7-4.8 [facility] Protimeon 09-10-2020 PT INR 1.2 Normal 0.9-1.3 [facility] Comment on above: Result Comment: Rocio min K Antagonist (VKA) Therapeutic Range: INR 2 to 3 (Target INR of 2.5) Note: For patients treated with VKA drugs, such as warfarin, the [place] [employer] 2012 Guideline recommends a therapeutic INR range of 2 to 3 (target INR of 2.5). This recommendation includes high-risk patients with antiphospholipid syndrome with previous arterial or venous thromboembolism, current-generation mechanical or bioprosthetic aortic heart valve replacement. Note: Patients with mechanical aortic valve replacement and additional risk factors for thromboembolic events (atrial fibrillation, previous thromboembolism, LV dysfunction, hypercoagulable conditions) or an older generation mechanical AVR (i.e., ball in-Cage) or any mechanical MVR should have a INR therapeutic range of 2.5 to 3.5 (target INR of 3). Raffitt GH, et al. Chest 2012, 141:7S-47S Jermaine RA, et al. [facility] 2017, 70: 252-289 PT Sec 12.5 sec Normal 9.7-13.0 [facility] ALLIED HEALTHon 09-09-2020 ALLIED HEALTH HNO ID: [id number] Author: CHARBEL Gonzalez Service: Radiology Author Type: Fruit Harvester Type: Allied Health Filed: 09/09/2020 5:08 PM Note Text: Radiology Service Progress Note DATE OF SERVICE: September 09, 2020 TIME: 5:07 PM PATIENT IDENTITY VERIFICATION COMPLETED USING TWO (2) STANDARD IDENTIFIERS: Name and Date of confirmed by identification band and Name and Date of obtained from a relative, guardian or prior caregiver.. FALL SCREENING: Has the patient had 2 falls in the last year or 1 fall with injury or currently using an Ambulatory Assistive Device (Walker, Cane, Wheelchair, Crutches, etc.)? Inpatient: Screened on floor PATIENT GENDER DATA: Male PATIENT RELEVANT IMPLANT DATA REVIEWED: Not Applicable ALLERGIES: Reviewed and unchanged CONTRAST ALLERGY: NO. EXAM: CT -CONTRAST INDUCED NEPHROPATHY RISK FACTORS: Patient age > 60 years CREATININE: Creatinine Date Value Ref Range Status 09/09/2020 1.05 0.73 - 1.22 mg/dL Final 09/08/2020 0.92 0.73 - 1.22 mg/dL Final 09/07/2020 0.92 0.73 - 1.22 mg/dL Final eGFR-All Other Races Date Value Ref Range Status 09/09/2020 >60 . Final Comment: eGFR (Estimated GFR) Units of measure: mL/min/1.73 meters squared eGFR is derived from the reexpressed MDRD Study equation using the following parameters: serum creatinine, age, gender and race. The creatinine assay has been calibrated to be traceable to [employer]. An eGFR <60 mL/min/1.73m2 for >3 months is consistent with chronic kidney disease. Refer to KDOQI guidelines for clinical interpretation. In patients with unstable renal function, e.g. those with acute kidney injury, the eGFR may not accurately reflect actual GFR. eGFR- Date Value Ref Range Status 09/09/2020 >60 Final P.O.C.T. RESULTS: POC done: Yes, See Lab Tab September 09, 2020 TREATMENT: N/A PERIPHERAL IV DATA: Inpatient - refer to LDA documentation RADIOLOGY DEPARTMENT: CT; Exam(s) Completed: Abdomen/Pelvis SIGNATURE: CHARBEL Gonzalez PATIENT NAME: Jesus Shaver DATE: September 09, 2020 TIME: 5:07 PM [facility] ALLIED HEALTH HNO ID: [id number] Author: Nikky Simpson Service: Radiology Author Type: Fruit Harvester Type: Allied Health Filed: 09/09/2020 10:52 AM Note Text: RADIOLOGY SERVICE PROGRESS NOTE DATE OF SERVICE: September 09, 2020 TIME OF SERVICE: 1040 EVENT: Patient became very combative, trying to climb off CT table while attempting CT abd/pel. Patient verbalized not wanting scan multiple times. A residential therapist image was take and had to end exam(nonbillable) for that 1 image to be dictated. If scan is to be done at a later date will need new order placed. RN was notified. ADDITIONAL EVENT DETAILS: SIGNATURE: Nikky Simpson PATIENT NAME: Jesus Shaver DATE: September 09, 2020 TIME: 10:50 AM PAGER/CONTACT #: [facility] ALLIED HEALTH HNO ID: [id number] Author: Razia Green PharmD Service: ? Author Type: Pharmacist Type: Allied Health Filed: 09/09/2020 8:37 AM Note Text: PHARMACY RENAL DOSING NOTE Patient Name: Jesus Shaver Date of Consult: 09/09/2020 Time of Contact: 8:33 AM Baseline Serum Creatinine (last 30 day): 0.9 Estimated Creatinine Clearance: Creatinine clearance is 87.4 mL/min RECOMMENDATIONS/PLAN: Date Drug Dose Interval Drug Indication Assessment/Plan 09/09/2020 Piperacillin/Tazobactam 3.375 g q 8h choledocholithiasis Adjust zosyn dose to 3.375 g q 6h Age: [age] year old Height: (ISAAC) Patient weight 83 kg LABS: BMP: Recent Labs 09/09/20 0535 09/08/20 0550 09/07/20 0634 09/06/20 0640 09/05/20 0527 GLUC 93 88 67* 59* 68* NA 139 134* 135* 136 139 K 3.8 4.1 3.5* 4.2 4.0 CHLOR 105 102 102 102 104 CO2 22 23 23 25 27 ANION 12 9 10 9 8* BUN 33* 26* 18 16 9 CREAT 1.05 0.92 0.92 0.96 0.93 A pharmacist will monitor the creatinine clearance daily and adjust the doses according to changes in clinical status. Razia Green, PharmD Pharmacy extension [phone] [facility] Blood Cultureon 09-09-2020 Bacteria identified Cx Nom (Bld) Culture Result - No growth 5 days [facility] Comment on above: Performed By: #### B LCUL ####[facility] [id number] [place], [place] [phone] Bacteria identified Cx Nom (Bld) Culture Result - No growth 5 days [facility] Comment on above: Performed By: #### B LCUL ####[facility] [id number] [place], [place] [phone] CASE MANAGEMon 09-09-2020 CASE MANAGEM HNO ID: [id number] Author: EZE Del Rio Service: Social Work Author Type: Supervisor Public Health Nursing Type: Care Mgt Progress Note Filed: 09/09/2020 2:23 PM Note Text: CARE MANAGEMENT PROGRESS NOTE SERVICE DATE: 09/09/2020 SERVICE TIME: 1:56 PM LOS: 12 days Needs Prior to Discharge: Precertification;Level of Care;Discharge Transportation ANI spoke with Mariam Meraz ([phone]) physician relations representative from the [employer] [facility] [employer] who is assisting with placement for the patient as the paperwork that the facility requires has to be completed on their end. SW notified by RN that patient is not ready for d/c today as WBC's are now elevated. SW canceled transport for today and has tentatively re scheduled it for tomorrow at 5 PM pending medical clearance and facility has necessary paperwork. SIGNATURE: EZE Del Rio PATIENT NAME: Jesus Shaver DATE: September 09, 2020 TIME: 1:56 PM PAGER/CONTACT #: [phone] Normal [facility] CBC and Differentialon 09-09 Abs Baso 0.00 k/uL Normal <0.11 [facility] Abs [place] 2.11 k/uL High <0.87 [facility] Abs Neut 10.24 k/uL High 1.45-7.50 [facility] ANC(includeSEG+BAND) 10.24 k/uL Normal [facility] Anisocytosis Ql (Bld) Present Normal [facility] Basophils/100 WBC (Bld) 0.0 % Normal [facility] DTYPE Manual Diff Normal [facility] Eosinophils (Bld) [#/Vol] 0.16 10*3/uL Normal <0.46 [facility] Eosinophils/100 WBC (Bld) 1.0 % Normal [facility] Erythrocyte distribution width (RBC) [Ratio] 22.4 % High 11.5-15.0 [facility] Hematocrit (Bld) [Volume fraction] 28.3 % Low 39.0-51.0 [facility] Hemoglobin (Bld) [Mass/Vol] 9.8 g/dL Low 13.0-17.0 [facility] Left Shift Present Normal [facility] Lymphocytes (Bld) [#/Vol] 2.93 10*3/uL Normal 1.00-4.00 [facility] Lymphocytes/100 WBC (Bld) 18.0 % Normal [facility] MCH 32.6 pG Normal 26.0-34.0 [facility] MCHC (RBC) [Mass/Vol] 34.6 g/dL Normal 30.5-36.0 [facility] MCV (RBC) [Entitic vol] 94.0 fL Normal 80.0-100.0 [facility] Metamyelocytes/100 WBC (Bld) 5.0 % Normal [facility] Monocytes/100 WBC (Bld) 13.0 % Normal [facility] Neutrophils/100 WBC (Bld) 63.0 % Normal [facility] Platelet Estimate Platelet estimate decreased Normal [facility] Platelet mean volume (Bld) [Entitic vol] 12.7 fL Normal 9.0-12.7 [facility] Platelets (Bld) [#/Vol] 103 10*3/uL Low 150-400 [facility] Polychromasia Slight Normal [facility] RBC (Bld) [#/Vol] 3.01 10*6/uL Low 4.20-6.00 [facility] RBC Fragments Few Normal [facility] Target Cells Moderate Normal [facility] WBC (Bld) [#/Vol] 16.26 10*3/uL High 3.70-11.00 [facility] CONSULTon 09-09-2020 CONSULT HNO ID: [id number] Author: Mercy Monson MD Service: Infectious Disease Author Type: Physician Type: Consults Filed: 09/09/2020 10:38 AM Note Text: INFECTIOUS DISEASE INITIAL CONSULT PATIENT NAME: Jesus Shaver SERVICE DATE: 09/09/2020 SERVICE TIME: 10:30 AM REASON FOR CONSULT: Leukocytosis REQUESTING PHYSICIAN: Irene Worrell PRIMARY CARE PHYSICIAN: Jesus Mills MD HPI Mr. Shaver is a pleasant, 65 year old male with PMH of MRDD and cirrhosis who was admitted 08/28/20 for evaluation of abdominal pain and jaundice. Patient had CT abd/pelvis on 08/29 with intrahepatic biliary dilatation noted and evidence of choledocholithiasis. WBC count normal at that time. He was started on zosyn. He had ERCP 08/30 and 09/01 followed by placement of PTHC on 09/03. He completed ~8d zosyn on 09/05. Has been off antibiotics since then. This AM, patient noted to have rising WBC count 9 --> 16. He had temp 99.7. Patient complains of abdominal pain today, but he is not really able to provide further detailed history. Denies cough, chest pain, nausea, diarrhea ROS: As per HPI. Otherwise 14 system review is negative. PAST MEDICAL HISTORY Diagnosis Date - Acute cholecystitis - Bilateral leg weakness - Mild mental retardation - Seizure disorder (HCC) PAST SURGICAL HISTORY Procedure Laterality Date - PAST SURGICAL HISTORY OF VNS - REMOVAL TESTIS,SIMPLE Right 10/20/2019 Orchiectomy History reviewed. No pertinent family history. Social History Tobacco Use - Smoking status: Never Smoker - Smokeless tobacco: Never Used Substance Use Topics - Alcohol use: No - Drug use: No MEDICATIONS: Prior to Admission Medications: multivitamin-ferrous fumarate-folic acid (CERTAVITE-ANTIOXIDANT), Take 1 tablet by mouth once daily., Disp: 30 tablet, Rfl: 5 bmskxwz-putxyikuu-kyyrqwo D3 (OYSTER SHELL CALCIUM-VITAMIN D) 500 mg(1,250mg) -200 unit per tablet, TAKE (1) TABLET BY MOUTH TWICE A DAY., Disp: 60 tablet, Rfl: 5 polyethylene glycol 3350 (GAVILAX) 17 gram packet, Take 1 Packet by mouth once daily., Disp: 30 Packet, Rfl: [address] (DEPAKOTE) 500 mg EC tablet, Take 3 tablets by mouth daily at bedtime. at bedtime, Disp: 90 tablet, Rfl: 11 lamoTRIgine ER (LAMICTAL XR) 100 mg 24 hr tablet, Take 1 tablet by mouth once daily., Disp: 30 tablet, Rfl: 11 senna (SENNA) 8.6 mg tab, Take 1 tablet by mouth twice daily., Disp: 60 tablet, Rfl: 11 pyridoxine, vitamin B6, (VITAMIN B-6) 100 mg tablet, Take 1 tablet by mouth once daily., Disp: 30 tablet, Rfl: 11 zonisamide (ZONEGRAN) 100 mg capsule, Take 1 capsule by mouth twice daily., Disp: 60 capsule, Rfl: 11 acetaminophen (TYLENOL) 650 mg suppository, 1 Suppository by RECTAL route every 4 hours as needed., Disp: 30 Suppository, Rfl: 11 acetaminophen (TYLENOL) 325 mg tablet, Take 2 tablets by mouth every 6 hours as needed for Pain., Disp: 90 tablet, Rfl: 11 bisacodyl (DULCOLAX) 10 mg supp, 1 Suppository by RECTAL route once daily as needed., Disp: 30 Suppository, Rfl: 5 magnesium hydroxide (MILK OF MAGNESIA) 400 mg/5 mL suspension, Take 15 mL by mouth once daily as needed for Constipation. Notify physician if no BM in 4 days, Disp: 450 mL, Rfl: 11 tamsulosin ER (FLOMAX) 0.4 mg, Take 1 capsule by mouth daily at bedtime., Disp: 30 capsule, Rfl: 11 COMPOUNDED PRESCRIPTION, Wheelchair with seat belt, Disp: 1 Each, Rfl: 0 COMPOUNDED PRESCRIPTION, [place] Lift, Disp: 1 Each, Rfl: 0 Current Facility-Administered Medications Medication Dose Route Frequency - divalproex DR 1,500 mg tab(s) (DEPAKOTE) 1,500 mg ORAL AT BEDTIME - zonisamide 100 mg cap(s) (ZONEGRAN) 100 mg ORAL BID - tamsulosin 0.4 mg cap(s) (FLOMAX) 0.4 mg ORAL AT BEDTIME - senna 8.6 mg tab(s) (SENOKOT) 8.6 mg ORAL BID - polyethylene glycol 3350 17 g packet (MIRALAX, GLYCOLAX) 17 g ORAL DAILY - lamoTRIgine 50 mg tab(s) (LaMICtal) 50 mg ORAL BID - sodium chloride 0.9 % (flush) 5-10 mL (BD POSIFLUSH) 5-10 mL OTHER q 12 H - traMADol 50 mg tab(s) (ULTRAM) 50 mg ORAL q 8 H PRN - NaCl 0.9% iv infusion 100 mL/hr INTRAVENOUS CONTINUOUS - piperacillin-tazobactam iv piggyback 3.375 g in dextrose (iso-osmotic) 50 mL (ZOSYN) 3.375 g INTRAVENOUS q 6 H - iv contrast (radiology procedure) INTRAVENOUS DIRECTED PRN CURRENT ALLERGIES: Allergies As of Date: 08/27/2020 Allergen Noted Reaction KEPPRA [LEVETIRACETAM] 05/14/2015 Other: See Comments JIGNA LEIUB [[id number]-[id number]*2015 Rash Fully Assessed 02/21/2019 OBJECTIVE Patient Vitals for the past 24 hrs: BP Temp Temp src Pulse Resp SpO2 09/09/20 1008 (!) 98/43 ? ? (!) 58 ? ? 09/09/20 0803 (!) 85/43 37.2 ?C (99 ?F) Axillary 61 20 98 % 09/09/20 0256 (!) 105/43 37.6 ?C (99.7 ?F) Oral 65 18 94 % 09/08/20 2320 (!) 94/49 37 ?C (98.6 ?F) Oral 64 17 89 % 09/08/20 2207 115/53 37.2 ?C (99 ?F) Oral 64 18 92 % 09/08/20 1536 112/50 36.7 ?C (98.1 ?F) Axillary 60 18 94 % 09/08/20 1112 122/52 36.8 ?C (98. (more content not included)... Normal [facility] CT ABD/PEL W IVCONon 021 CT ABD/PEL W IVCON * * *Final Report* * * DATE OF EXAM: Sep 09 2020 5:08PM [facility] 0530 - CT ABD/PEL W IVCON / PROCEDURE REASON: Abdominal pain, acute, nonlocalized * * * * Physician Interpretation * * * * RESULT: EXAMINATION: CT ABDOMEN AND PELVIS WITH IV CONTRAST CLINICAL HISTORY: Abdominal pain, acute, nonlocalized ABD PAIN BEST SCAN- PT MRDD, UNABLE TO FOLLOW BREATHING INSTRUCTIONS TECHNIQUE: Routine helical scanning of the abdomen and pelvis with IV contrast. Contrast: IV: 146 ml Omnipaque 300 Oral: None. CT Radiation dose: Integrated Dose-length product (DLP): 654 mGy*cm. CT Dose Reduction Employed: Automated exposure control(AEC) and iterative recon COMPARISON: 08/29/2020 CT of abdomen and pelvis with contrast LIMITATIONS: Streak artifact from the overlapping arms and head. Motion artifact. RESULT: Lower chest: Small bilateral pleural effusions and mild bibasilar dependent atelectasis, increased compared to 08/29/2020. Peritoneum/mesentery: There is no free intraperitoneal air or significant free fluid. Liver: No mass. Biliary: Gallbladder is absent. Internal/external biliary drainage catheter entering the inferior right lobe and coursing through the right lobe duct system through the common duct and ampulla with the distal retention: Loop formed in the duodenum just below the ampulla. Spleen: Normal. Pancreas: Pancreatic duct stent in place coursing through the pancreatic head and neck region into the duodenal lumen. No dilation of the pancreatic duct or pancreatic parenchymal mass. Adrenals: Normal. Kidneys/urinary: Normal. GI tract: No dilated bowel or bowel wall thickening. Appendix: Not seen. Lymph nodes: Negative. Vasculature: Unremarkable. Pelvis: No mass or fluid collection. Bones/soft tissue: Chronic appearing compression deformities of T12 and L3. Stewardesses Teacher (topogram) images: Unremarkable. IMPRESSION: No acute findings in the abdomen and pelvis. Pancreatic duct stent and internal/external percutaneous biliary drainage catheter in place. No dilated bile ducts or pancreatic duct. I lateral pleural effusions and bibasilar dependent atelectasis, increased compared to 08/29/2020. Transcribed Using Voice Recognition Transcribe Date/Time: Sep 09 2020 5:19P Dictated by: ARLEEN FREDERICK MD This examination was interpreted and the report reviewed and electronically signed by: ARLEEN FREDERICK MD on Sep 09 2020 5:31PM EST [id number] [facility] CT ABD/PEL W IVCON * * *Final Report* * * DATE OF EXAM: Sep 09 2020 10:49AM [facility] 0530 - CT ABD/PEL W IVCON / PROCEDURE REASON: Infection, abdomen-pelvis * * * * Physician Interpretation * * * * RESULT: CANCELLED IMAGING EXAM COMMUNICATION RESULT See Impression IMPRESSION CANCELLED IMAGING EXAM COMMUNICATION The patient came to Imaging for CT ABD/PEL W IVCON. The exam could not be completed due to patient having difficulty lying still and tolerating this study. Stewardesses Teacher topogram image was performed but the exam was stopped at that time. Bowel gas pattern on the topogram is nonspecific. Nursing staff was notified by isotope technologist. Exam can be re-ordered and performed when patient can tolerate. Transcribed Using Voice Recognition Transcribe Date/Time: Sep 09 2020 12:34P Dictated by: APRYL ZARCO MD This examination was interpreted and the report reviewed and electronically signed by: APRYL ZARCO MD on Sep 09 2020 12:41PM EST [id number] Normal [facility] Comp Metabolic Panelon 09-09 Albumin [Mass/Vol] 2.4 g/dL Low 3.9-4.9 [facility] ALP [Catalytic activity/Vol] 246 U/L High 38-113 [facility] ALT [Catalytic activity/Vol] 40 U/L Normal 10-54 [facility] Anion gap [Moles/Vol] 12 mmol/L Normal 9-18 [facility] AST [Catalytic activity/Vol] 61 U/L High 14-40 [facility] Bilirubin [Mass/Vol] 11.7 mg/dL High 0.2-1.3 [facility] Calcium [Mass/Vol] 9.4 mg/dL Normal 8.5-10.2 [facility] Chloride [Moles/Vol] 105 mmol/L Normal 97-105 [facility] CO2 [Moles/Vol] 22 mmol/L Normal 22-33 [facility] Creatinine [Mass/Vol] 1.05 mg/dL Normal 0.73-1.22 [facility] eGFR- Amer. >60 Normal [facility] eGFR-All Other Races >60 Normal [facility] Comment on above: Result Comment: eGFR (Estimated GFR) Units of measure: mL/min/1.73 meters squared eGFR is derived from the reexpressed MDRD Study equation using the following parameters: serum creatinine, age, gender and race. The creatinine assay has been calibrated to be traceable to IDMS. An eGFR <60 mL/min/1.73m2 for >3 months is consistent with chronic kidney disease. Refer to KDOQI guidelines for clinical interpretation. In patients with unstable renal function, e.g. those with acute kidney injury, the eGFR may not accurately reflect actual GFR. Glucose [Mass/Vol] 93 mg/dL Normal 74-99 [facility] Potassium [Moles/Vol] 3.8 mmol/L Normal 3.7-5.1 [facility] Protein [Mass/Vol] 5.4 g/dL Low 6.3-8.0 [facility] Sodium [Moles/Vol] 139 mmol/L Normal 136-144 [facility] Urea nitrogen [Mass/Vol] 33 mg/dL High 9-24 [facility] Lactateon 09-09-2020 Lactate [Moles/Vol] 1.9 mmol/L Normal 0.5-2.2 [facility] Magnesiumon 09-09-2020 Magnesium [Mass/Vol] 2.5 mg/dL High 1.7-2.3 [facility] NURSING PROGon 09-09-2020 NURSING PROG HNO ID: [id number] Author: Zulay Bishop RN Service: Nursing Author Type: Registered Nurse Type: Nursing Progress Note Filed: 09/10/2020 7:51 AM Note Text: Nursing Progress Note Patient Name: Jesus Shaver Patient Location: [facility] Daily Note: 2134: Assessment as charted. Pt denies pain at this time. Lung sounds diminished. Abdomen soft, bowel sounds present. R bili drain to gravity, draining bile. Condom cath present, draining danilo brown fluid. IV fluids infusing per order. Call light within reach, bed alarm on. This note was completed by: Zulay Bishop [facility] NURSING PROG HNO ID: [id number] Author: Cassidy Mg RN Service: ? Author Type: Registered Nurse Type: Nursing Progress Note Filed: 09/09/2020 11:27 AM Note Text: Nursing Progress Note Patient Name: Jesus Shaver Patient Location: [facility] Daily Note: 804 Assessment completed, BP low, pt is AANDOx1 but awake. Pt stating he does not feel well right now. Skin jaundiced. Will monitor. Bed alarm on for safety. [address] Worrell of recent vitals and labs. New orders placed. 1049 Made aware by Noemy in radiology that CT was unable to be completed d/t pt becoming combative. Notified Dr. Worrell. This note was completed by: Cassidy Mg [facility] NURSING PROG HNO ID: [id number] Author: Arely Davila, RN Service: ? Author Type: Registered Nurse Type: Nursing Progress Note Filed: 09/09/2020 1:37 AM Note Text: Nursing Progress Note Patient Name: Jesus Shaver Patient Location: [facility]-1 Daily Note: 2199: Pt assessment as charted, pt resting in bed, nighttime medications given whole with jello-pt tolerated well, denies any pain when asked, oriented to self only, repositioned for comfort-however pt yelling when trying to move him. SR on the monitor, condom cath remains intact draining to gravity bag, bed alarm on, will monitor. This note was completed by: Arely Davila [facility] Phosphoruson 09-09-2020 Phosphate [Mass/Vol] 3.4 mg/dL Normal 2.7-4.8 [facility] Protimeon 09-09-2020 PT INR 1.1 Normal 0.9-1.3 [facility] Comment on above: Result Comment: Rocio min K Antagonist (VKA) Therapeutic Range: INR 2 to 3 (Target INR of 2.5) Note: For patients treated with VKA drugs, such as warfarin, the [place] [employer] 2012 Guideline recommends a therapeutic INR range of 2 to 3 (target INR of 2.5). This recommendation includes high-risk patients with antiphospholipid syndrome with previous arterial or venous thromboembolism, current-generation mechanical or bioprosthetic aortic heart valve replacement. Note: Patients with mechanical aortic valve replacement and additional risk factors for thromboembolic events (atrial fibrillation, previous thromboembolism, LV dysfunction, hypercoagulable conditions) or an older generation mechanical AVR (i.e., ball in-Cage) or any mechanical MVR should have a INR therapeutic range of 2.5 to 3.5 (target INR of 3). Elvi GH, et al. Chest 2012, 141:7S-47S Jermaine RA, et al. [facility] 2017, 70: 252-289 PT Sec 11.9 sec Normal 9.7-13.0 [facility] CBC and Differentialon 09-08 Abs Baso 0.10 k/uL Normal <0.11 [facility] Abs [place] 0.90 k/uL High <0.87 [facility] Abs Neut 6.87 k/uL Normal 1.45-7.50 [facility] ANC(includeSEG+BAND) 6.87 k/uL Normal [facility] Anisocytosis Ql (Bld) Present Normal [facility] Basophils/100 WBC (Bld) 1.0 % Normal [facility] DTYPE Manual Diff Normal [facility] Eosinophils (Bld) [#/Vol] 0.20 10*3/uL Normal <0.46 [facility] Eosinophils/100 WBC (Bld) 2.0 % Normal [facility] Erythrocyte distribution width (RBC) [Ratio] 22.1 % High 11.5-15.0 [facility] Hematocrit (Bld) [Volume fraction] 29.6 % Low 39.0-51.0 [facility] Hemoglobin (Bld) [Mass/Vol] 10.2 g/dL Low 13.0-17.0 [facility] Left Shift Present Normal [facility] Lymphocytes (Bld) [#/Vol] 1.59 10*3/uL Normal 1.00-4.00 [facility] Lymphocytes/100 WBC (Bld) 16.0 % Normal [facility] MCH 33.1 pG Normal 26.0-34.0 [facility] MCHC (RBC) [Mass/Vol] 34.5 g/dL Normal 30.5-36.0 [facility] MCV (RBC) [Entitic vol] 96.1 fL Normal 80.0-100.0 [facility] Metamyelocytes/100 WBC (Bld) 1.0 % Normal [facility] Monocytes/100 WBC (Bld) 9.0 % Normal [facility] Myelo% 2.0 % Normal [facility] Neutrophils/100 WBC (Bld) 69.0 % Normal [facility] Platelet Estimate Platelet estimate decreased Normal [facility] Platelet mean volume (Bld) [Entitic vol] 11.9 fL Normal 9.0-12.7 [facility] Platelets (Bld) [#/Vol] 111 10*3/uL Low 150-400 [facility] RBC (Bld) [#/Vol] 3.08 10*6/uL Low 4.20-6.00 [facility] Target Cells Few Normal [facility] WBC (Bld) [#/Vol] 9.96 10*3/uL Normal 3.70-11.00 [facility] Comp Metabolic Panelon 09-08 Albumin [Mass/Vol] 2.8 g/dL Low 3.9-4.9 [facility] ALP [Catalytic activity/Vol] 313 U/L High 38-113 [facility] ALT [Catalytic activity/Vol] 52 U/L Normal 10-54 [facility] Anion gap [Moles/Vol] 9 mmol/L Normal 9-18 [facility] AST [Catalytic activity/Vol] 76 U/L High 14-40 [facility] Bilirubin [Mass/Vol] 10.4 mg/dL High 0.2-1.3 [facility] Calcium [Mass/Vol] 9.7 mg/dL Normal 8.5-10.2 [facility] Chloride [Moles/Vol] 102 mmol/L Normal 97-105 [facility] CO2 [Moles/Vol] 23 mmol/L Normal 22-33 [facility] Creatinine [Mass/Vol] 0.92 mg/dL Normal 0.73-1.22 [facility] eGFR- Amer. >60 Normal [facility] eGFR-All Other Races >60 Normal [facility] Comment on above: Result Comment: eGFR (Estimated GFR) Units of measure: mL/min/1.73 meters squared eGFR is derived from the reexpressed MDRD Study equation using the following parameters: serum creatinine, age, gender and race. The creatinine assay has been calibrated to be traceable to IDMS. An eGFR <60 mL/min/1.73m2 for >3 months is consistent with chronic kidney disease. Refer to KDOQI guidelines for clinical interpretation. In patients with unstable renal function, e.g. those with acute kidney injury, the eGFR may not accurately reflect actual GFR. Glucose [Mass/Vol] 88 mg/dL Normal 74-99 [facility] Potassium [Moles/Vol] 4.1 mmol/L Normal 3.7-5.1 [facility] Protein [Mass/Vol] 5.9 g/dL Low 6.3-8.0 [facility] Sodium [Moles/Vol] 134 mmol/L Low 136-144 [facility] Urea nitrogen [Mass/Vol] 26 mg/dL High 9-24 [facility] Coronavirus 2019on 1 SARS-CoV-2 (COVID-19) RNA AURY+probe Ql (Unsp spec) UPPER RESPIRATORY TRACT SWAB Normal [facility] Comment on above: Performed By: #### C OVID ####[id number] [place], [place] [phone] SARS-CoV-2 (COVID-19) RNA AURY+probe Ql (Unsp spec) Negative for COVID19 (SARS CoV2) by RT-PCR or equivalent method. Normal Negative for COVID19 (SARS CoV2) by RT-PCR or equivalent method. [facility] Comment on above: Result Comment: This test was developed and its performance characteristics determined by [facility] [place]. This test has been authorized by FDA under an Emergency Use Authorization (EUA). This test has been validated in accordance with the FDA's Guidance Document "Policy for Diagnostics Testing in Laboratories Certified to Perform High Complexity Testing under CLIA prior to Emergency use Authorization for Coronavirus Disease 2019 during the Public Health Emergency" issued on June 21, 2019. Test performed by [facility], [facility] [place], [address], [place] [address]. Performed By: #### C OVID ####[id number] [place], [place] [phone] Magnesiumon 09-08-2020 Magnesium [Mass/Vol] 2.6 mg/dL High 1.7-2.3 [facility] NURSING PROGon 09-08-2020 NURSING PROG HNO ID: [id number] Author: Cassidy Mg RN Service: ? Author Type: Registered Nurse Type: Nursing Progress Note Filed: 09/08/2020 4:57 PM Note Text: Nursing Progress Note Patient Name: Jesus Shaver Patient Location: / Daily Note: 1515 Assumed care of pt. Pt resting, no needs at this time. Biliary drainage to gravity drainage and intact. Will monitor. Bed alarm on for safety. This note was completed by: Cassidy Mg [facility] NURSING PROG HNO ID: [id number] Author: Luly Moore RN Service: Nursing Author Type: Registered Nurse Type: Nursing Progress Note Filed: 09/08/2020 11:50 AM Note Text: Nursing Progress Note Patient Name: Jesus Shaver Patient Location: / Daily Note:Assumed care of patient. Patient alert and oriented, moves all extremities, heart rate regular, lungs clear, and skin intact. No verbal or visible complaints at this time. Call light in reach. Will continue to monitor. This note was completed by: Luly Moore [facility] NURSING PROG HNO ID: [id number] Author: Wily Ward RN Service: ? Author Type: Registered Nurse Type: Nursing Progress Note Filed: 09/08/2020 1:46 AM Note Text: Nursing Progress Note Patient Name: Jesus Shaver Patient Location: / Daily Note: 2300: Pt assessed per flowsheet, belongings and call light within reach. Pt given medications per emar and the use of green jello. 0000: Pt is resting in bed with call light and belongings within reach. This note was completed by: Wily Ward Normal [facility] Phosphoruson 09-08-2020 Phosphate [Mass/Vol] 2.2 mg/dL Low 2.7-4.8 [facility] Protimeon 09-08-2020 PT INR 1.0 Normal 0.9-1.3 [facility] Comment on above: Result Comment: Rocio min K Antagonist (VKA) Therapeutic Range: INR 2 to 3 (Target INR of 2.5) Note: For patients treated with VKA drugs, such as warfarin, the [place] [employer] 2012 Guideline recommends a therapeutic INR range of 2 to 3 (target INR of 2.5). This recommendation includes high-risk patients with antiphospholipid syndrome with previous arterial or venous thromboembolism, current-generation mechanical or bioprosthetic aortic heart valve replacement. Note: Patients with mechanical aortic valve replacement and additional risk factors for thromboembolic events (atrial fibrillation, previous thromboembolism, LV dysfunction, hypercoagulable conditions) or an older generation mechanical AVR (i.e., ball in-Cage) or any mechanical MVR should have a INR therapeutic range of 2.5 to 3.5 (target INR of 3). Elvi GH, et al. Chest 2012, 141:7S-47S Jermaine RA, et al. [facility] 2017, 70: 252-289 PT Sec 11.2 sec Normal 9.7-13.0 [facility] CASE MANAGEMon 09-07-2020 CASE MANAGEM HNO ID: [id number] Author: EZE Del [place] Service: Social Work Author Type: Supervisor Public Health Nursing Type: Care Mgt Progress Note Filed: 09/07/2020 4:32 PM Note Text: CARE MANAGEMENT PROGRESS NOTE SERVICE DATE: 09/07/2020 SERVICE TIME: 4:30 PM LOS: 10 days [place] of Choice Given: Yes Level of Care Discussed: Jail Facility Financial Disclosure Provided: Yes Financial Disclosure Comments: [facility] list provided Provider List: Jail Facility Provider list within the patient's requested geographic area shared with the patient/family: Yes within: 20 miles of zip code: [address] [facility] list emailed to [email or web address] @ [email or web address] SIGNATURE: EZE Del Rio PATIENT NAME: Jesus Shaver DATE: September 07, 2020 TIME: 4:29 PM PAGER/CONTACT #: [phone] [facility] CASE MANAGEM HNO ID: [id number] Author: EZE Del Rio Service: Social Work Author Type: Supervisor Public Health Nursing Type: Care Mgt Progress Note Filed: 09/07/2020 4:26 PM Note Text: CARE MANAGEMENT PROGRESS NOTE SERVICE DATE: 09/07/2020 SERVICE TIME: 4:15 PM LOS: 10 days Needs Prior to Discharge: Accepting Facility;Bed Availability;Insurance Authorization;Discharge Transportation SW heard back from senior care today that they are unable to accept patient back with his biliary drain. ANI spoke with patient's guardian and emailed her a [place] [address] ([place], [place]). Guardian has had concerns raised about the care the patient was receiving in the senior care so she is in agreement with placement. ANI also spoke with Mariam Meraz @ [phone] from the Board of DD who is assisting with placement and requested a referral to [facility] where patient has been in the past. Referral placed. Await their review and determination. Above discussed with attending MD. SIGNATURE: EZE Del Rio PATIENT NAME: Jesus Shaver DATE: September 07, 2020 TIME: 4:15 PM PAGER/CONTACT #: [phone] Normal [facility] CBC and Differentialon 09-07 Abs Baso 0.00 k/uL Normal <0.11 [facility] Abs [place] 0.09 k/uL Normal <0.87 [facility] Abs Neut 5.71 k/uL Normal 1.45-7.50 [facility] ANC(includeSEG+BAND) 5.71 k/uL Normal [facility] Anisocytosis Ql (Bld) Present Normal [facility] Basophils/100 WBC (Bld) 0.0 % Normal [facility] DTYPE Manual Diff Normal [facility] Eosinophils (Bld) [#/Vol] 0.26 10*3/uL Normal <0.46 [facility] Eosinophils/100 WBC (Bld) 3.0 % Normal [facility] Erythrocyte distribution width (RBC) [Ratio] 21.2 % High 11.5-15.0 [facility] Hematocrit (Bld) [Volume fraction] 28.7 % Low 39.0-51.0 [facility] Hemoglobin (Bld) [Mass/Vol] 10.1 g/dL Low 13.0-17.0 [facility] Left Shift Present Normal [facility] Lymphocytes (Bld) [#/Vol] 2.55 10*3/uL Normal 1.00-4.00 [facility] Lymphocytes/100 WBC (Bld) 29.0 % Normal [facility] MCH 33.0 pG Normal 26.0-34.0 [facility] MCHC (RBC) [Mass/Vol] 35.2 g/dL Normal 30.5-36.0 [facility] MCV (RBC) [Entitic vol] 93.8 fL Normal 80.0-100.0 [facility] Metamyelocytes/100 WBC (Bld) 2.0 % Normal [facility] Monocytes/100 WBC (Bld) 1.0 % Normal [facility] Neutrophils/100 WBC (Bld) 65.0 % Normal [facility] Platelet Estimate Platelet estimate decreased Normal [facility] Platelet mean volume (Bld) [Entitic vol] 11.8 fL Normal 9.0-12.7 [facility] Platelets (Bld) [#/Vol] 106 10*3/uL Low 150-400 [facility] Polychromasia Slight Normal [facility] RBC (Bld) [#/Vol] 3.06 10*6/uL Low 4.20-6.00 [facility] WBC (Bld) [#/Vol] 8.78 10*3/uL Normal 3.70-11.00 [facility] Comp Metabolic Panelon 09-07 Albumin [Mass/Vol] 2.6 g/dL Low 3.9-4.9 [facility] ALP [Catalytic activity/Vol] 312 U/L High 38-113 [facility] ALT [Catalytic activity/Vol] 50 U/L Normal 10-54 [facility] Anion gap [Moles/Vol] 10 mmol/L Normal 9-18 [facility] AST [Catalytic activity/Vol] 71 U/L High 14-40 [facility] Bilirubin [Mass/Vol] 10.2 mg/dL High 0.2-1.3 [facility] Calcium [Mass/Vol] 9.4 mg/dL Normal 8.5-10.2 [facility] Chloride [Moles/Vol] 102 mmol/L Normal 97-105 [facility] CO2 [Moles/Vol] 23 mmol/L Normal 22-33 [facility] Creatinine [Mass/Vol] 0.92 mg/dL Normal 0.73-1.22 [facility] eGFR- Amer. >60 Normal [facility] eGFR-All Other Races >60 Normal [facility] Comment on above: Result Comment: eGFR (Estimated GFR) Units of measure: mL/min/1.73 meters squared eGFR is derived from the reexpressed MDRD Study equation using the following parameters: serum creatinine, age, gender and race. The creatinine assay has been calibrated to be traceable to IDMS. An eGFR <60 mL/min/1.73m2 for >3 months is consistent with chronic kidney disease. Refer to KDOQI guidelines for clinical interpretation. In patients with unstable renal function, e.g. those with acute kidney injury, the eGFR may not accurately reflect actual GFR. Glucose [Mass/Vol] 67 mg/dL Low 74-99 [facility] Potassium [Moles/Vol] 3.5 mmol/L Low 3.7-5.1 [facility] Protein [Mass/Vol] 5.3 g/dL Low 6.3-8.0 [facility] Sodium [Moles/Vol] 135 mmol/L Low 136-144 [facility] Urea nitrogen [Mass/Vol] 18 mg/dL Normal 9-24 [facility] Magnesiumon 09-07-2020 Magnesium [Mass/Vol] 2.2 mg/dL Normal 1.7-2.3 [facility] NURSING PROGon 09-07-2020 NURSING PROG HNO ID: [id number] Author: Lubna Vaz RN Service: ? Author Type: Registered Nurse Type: Nursing Progress Note Filed: 09/07/2020 1:38 PM Note Text: Nursing Progress Note Patient Name: Jesus Shaver Patient [facility]: [facility] Daily Note: The patients assessment is without change This note was completed by: Audra Vaz [facility] NURSING PROG HNO ID: [id number] Author: Elzbieta Le RN Service: ? Author Type: Registered Nurse Type: Nursing Progress Note Filed: 09/07/2020 2:00 AM Note Text: Nursing Progress Note Patient Name: Jesus Shaver Patient Location: [facility] Daily Note: 2109 Pt assessment completed as charted. Aox1, on RA, VSS except low BP, hospitalist aware AND notified; no new orders. IV sites WNL, flushed AND capped. R biliary drain intact AND patent, draining bile. Condom ext male cath intact. Pt is resting in bed, Q2T. Call lights within reach. Safety maintained. Will monitor. 0159 Prior assessment unchanged. Safety maintained. Bed alarm on AND functioning. Will cont to monitor. This note was completed by: Elzbieta Le [facility] Phosphoruson 09-07-2020 Phosphate [Mass/Vol] 2.7 mg/dL Normal 2.7-4.8 [facility] Protimeon 09-07-2020 PT INR 1.0 Normal 0.9-1.3 [facility] Comment on above: Result Comment: Rocio min K Antagonist (VKA) Therapeutic Range: INR 2 to 3 (Target INR of 2.5) Note: For patients treated with VKA drugs, such as warfarin, the [place] [employer] 2012 Guideline recommends a therapeutic INR range of 2 to 3 (target INR of 2.5). This recommendation includes high-risk patients with antiphospholipid syndrome with previous arterial or venous thromboembolism, current-generation mechanical or bioprosthetic aortic heart valve replacement. Note: Patients with mechanical aortic valve replacement and additional risk factors for thromboembolic events (atrial fibrillation, previous thromboembolism, LV dysfunction, hypercoagulable conditions) or an older generation mechanical AVR (i.e., ball in-Cage) or any mechanical MVR should have a INR therapeutic range of 2.5 to 3.5 (target INR of 3). Elvi GH, et al. Chest 2012, 141:7S-47S Jermaine RA, et al. [facility] 2017, 70: 252-289 PT Sec 11.1 sec Normal 9.7-13.0 [facility] CASE MANAGEMon 09-06-2020 CASE MANAGEM HNO ID: [id number] Author: EZE [place] Service: Social Work Author Type: Supervisor Public Health Nursing Type: Care Mgt Progress Note Filed: 09/06/2020 4:28 PM Note Text: CARE MANAGEMENT PROGRESS NOTE SERVICE DATE: 09/06/2020 SERVICE TIME: 4:26 PM LOS: 9 days Needs Prior to Discharge: To Be Determined Patient reviewed with this am. Patient is from [facility] half-way and ANI has placed 2 calls to consulting group analyst Le to see if patient is able to return with a biliary drain and have received no response. ANI also reached out to patient's guardian Mandy today to assist with d/c planning and message left. SIGNATURE: EZE [place] PATIENT NAME: Jesus Shaver DATE: September 06, 2020 TIME: 4:26 PM PAGER/CONTACT #: [phone] Normal [facility] CBC and Differentialon 09-06 Abs Baso 0.10 k/uL Normal <0.11 [facility] Abs [place] 1.46 k/uL High <0.87 [facility] Abs Neut 5.82 k/uL Normal 1.45-7.50 [facility] ANC(includeSEG+BAND) 5.82 k/uL Normal [facility] Anisocytosis Ql (Bld) Present Normal [facility] Basophils/100 WBC (Bld) 1.0 % Normal [facility] DTYPE Manual Diff Normal [facility] Eosinophils (Bld) [#/Vol] 0.00 10*3/uL Normal <0.46 [facility] Eosinophils/100 WBC (Bld) 0.0 % Normal [facility] Erythrocyte distribution width (RBC) [Ratio] 20.5 % High 11.5-15.0 [facility] Hematocrit (Bld) [Volume fraction] 30.1 % Low 39.0-51.0 [facility] Hemoglobin (Bld) [Mass/Vol] 10.8 g/dL Low 13.0-17.0 [facility] Left Shift Present Normal [facility] Lymphocytes (Bld) [#/Vol] 2.04 10*3/uL Normal 1.00-4.00 [facility] Lymphocytes/100 WBC (Bld) 21.0 % Normal [facility] MCH 33.2 pG Normal 26.0-34.0 [facility] MCHC (RBC) [Mass/Vol] 35.9 g/dL Normal 30.5-36.0 [facility] MCV (RBC) [Entitic vol] 92.6 fL Normal 80.0-100.0 [facility] Metamyelocytes/100 WBC (Bld) 2.0 % Normal [facility] Monocytes/100 WBC (Bld) 15.0 % Normal [facility] Myelo% 1.0 % Normal [facility] Neutrophils/100 WBC (Bld) 60.0 % Normal [facility] Platelet Estimate Platelet estimate decreased Normal [facility] Platelet mean volume (Bld) [Entitic vol] 13.0 fL High 9.0-12.7 [facility] Platelets (Bld) [#/Vol] 107 10*3/uL Low 150-400 [facility] Polychromasia Slight Normal [facility] RBC (Bld) [#/Vol] 3.25 10*6/uL Low 4.20-6.00 [facility] Target Cells Many Normal [facility] WBC (Bld) [#/Vol] 9.70 10*3/uL Normal 3.70-11.00 [facility] CONSULTon 09-06-2020 CONSULT HNO ID: [id number] Author: María Aguilar MD Service: Electrophysiology Author Type: Physician Type: Consults Filed: 09/06/2020 1:17 PM Note Text: CONSULT: ELECTROPHYSIOLOGY SERVICE SERVICE DATE: 09/06/2020 SERVICE TIME: 9:30 AM CONSULTING PHYSICIAN: María Aguilar MD PCP: Jesus Mills MD ATTENDING: Irene Worrell DO REASON FOR CONSULT: Multiple 2-3 second pauses on telemetry Subjective CHIEF COMPLAINT: Obstructive jaundice [K83.1] Jaundice [R17] HISTORY OF PRESENT ILLNESS: Mr. Shaver is a 65 year old male with past medical history of MRDD, seizure disorder, and cirrhosis who was admitted for obstructive jaundice secondary to choledocholithiasis. Underwent ERCP x2 and PTHC drain placement on 09/03/20. History was obtained from chart review as the patient is a poor historian. EKG on 08/28/20 suggested sinus bradycardia, HR 55 bpm. We were consulted for 2-3 second pause on telemetry. Presently, he states that he does not feel good because he is sad. He is a poor historian and did not participate in history taking. Thus, we are not able to assess whether he was symptomatic during the 2-3 second pause on telemetry. However, he does deny having lightheadedness or dizziness when asked about these specific symptoms. Nursing note reviewed during pause on 09/05/20 and it noted patient was asymptomatic, arousable and responsive to verbal stimuli at that time. PAST MEDICAL HISTORY Diagnosis Date - Acute cholecystitis - Bilateral leg weakness - Mild mental retardation - Seizure disorder (HCC) PAST SURGICAL HISTORY Procedure Laterality Date - PAST SURGICAL HISTORY OF VNS - REMOVAL TESTIS,SIMPLE Right 10/20/2019 Orchiectomy History reviewed. No pertinent family history. Social History Tobacco Use - Smoking status: Never Smoker - Smokeless tobacco: Never Used Substance Use Topics - Alcohol use: No - Drug use: No Prior to Admission Medications Prescriptions Last Dose Informant Patient Reported? Taking? COMPOUNDED PRESCRIPTION No No Sig: Charlotte Lift COMPOUNDED PRESCRIPTION No No Sig: Wheelchair with seat belt acetaminophen (TYLENOL) 325 mg tablet No No Sig: Take 2 tablets by mouth every 6 hours as needed for Pain. acetaminophen (TYLENOL) 650 mg suppository No No Si Suppository by RECTAL route every 4 hours as needed. bisacodyl (DULCOLAX) 10 mg supp No No Si Suppository by RECTAL route once daily as needed. lnlqrse-jkkkdgwrl-vjgpuvz D3 (OYSTER SHELL CALCIUM-VITAMIN D) 500 mg(1,250mg) -200 unit per tablet No No Sig: TAKE (1) TABLET BY MOUTH TWICE A DAY. divalproex DR (DEPAKOTE) 500 mg EC tablet No No Sig: Take 3 tablets by mouth daily at bedtime. at bedtime lamoTRIgine ER (LAMICTAL XR) 100 mg 24 hr tablet No No Sig: Take 1 tablet by mouth once daily. magnesium hydroxide (MILK OF MAGNESIA) 400 mg/5 mL suspension No No Sig: Take 15 mL by mouth once daily as needed for Constipation. Notify physician if no BM in 4 days multivitamin-ferrous fumarate-folic acid (CERTAVITE-ANTIOXIDANT) No No Sig: Take 1 tablet by mouth once daily. polyethylene glycol 3350 (GAVILAX) 17 gram packet No No Sig: Take 1 Packet by mouth once daily. pyridoxine, vitamin B6, (VITAMIN B-6) 100 mg tablet No No Sig: Take 1 tablet by mouth once daily. senna (SENNA) 8.6 mg tab No No Sig: Take 1 tablet by mouth twice daily. tamsulosin ER (FLOMAX) 0.4 mg No No Sig: Take 1 capsule by mouth daily at bedtime. zonisamide (ZONEGRAN) 100 mg capsule No No Sig: Take 1 capsule by mouth twice daily. Facility-Administered Medications: None Current Facility-Administered Medications Medication Dose Route Frequency - divalproex DR 1,500 mg tab(s) (DEPAKOTE) 1,500 mg ORAL AT BEDTIME - zonisamide 100 mg cap(s) (ZONEGRAN) 100 mg ORAL BID - tamsulosin 0.4 mg cap(s) (FLOMAX) 0.4 mg ORAL AT BEDTIME - senna 8.6 mg tab(s) (SENOKOT) 8.6 mg ORAL BID - polyethylene glycol 3350 17 g packet (MIRALAX, GLYCOLAX) 17 g ORAL DAILY - lamoTRIgine 50 mg tab(s) (LaMICtal) 50 mg ORAL BID - sodium chloride 0.9 % (flush) 5-10 mL (BD POSIFLUSH) 5-10 mL OTHER q 12 H - traMADol 50 mg tab(s) (ULTRAM) 50 mg ORAL q 8 H PRN ALLERGIES Allergen Reactions - Keppra [Levetiracet* Other: See Comments Increased seizures - Vicks Vaporub [Camp* Rash REVIEW OF SYSTEMS: Not obtained due to the patient's history of MRDD. Objective PHYSICAL EXAM: Comfortable, not in acute distress. Awake, alert Moves all extremities. SKIN: No rash or lumps. Diffuse jaundice. HEENT: Normocephalic, face symmetrical. NECK: Supple, no JVD LUNGS: Non-labored breathing CARDIAC: RRR, S1 and S2, no murmurs. ABDOMEN: Soft, nontender EXTREMITIES: Trace edema RLE PULSES: Extremities warm to touch There is no height or weight on file to calculate BMI. O2 Therapy: Room Air No data recorded Patient Vitals for the past 48 hrs: BP Temp Temp src Pulse Resp SpO2 09/06/20 0720 118/58 36.6 ?C (97.9 ?F) Axilla (more content not included)... Normal [facility] Comp Metabolic Panelon 09-06 Albumin [Mass/Vol] 2.7 g/dL Low 3.9-4.9 [facility] ALP [Catalytic activity/Vol] 347 U/L High 38-113 [facility] ALT [Catalytic activity/Vol] 57 U/L High 10-54 [facility] Anion gap [Moles/Vol] 9 mmol/L Normal 9-18 [facility] AST [Catalytic activity/Vol] 68 U/L High 14-40 [facility] Bilirubin [Mass/Vol] 11.3 mg/dL High 0.2-1.3 [facility] Calcium [Mass/Vol] 9.9 mg/dL Normal 8.5-10.2 [facility] Chloride [Moles/Vol] 102 mmol/L Normal 97-105 [facility] CO2 [Moles/Vol] 25 mmol/L Normal 22-33 [facility] Creatinine [Mass/Vol] 0.96 mg/dL Normal 0.73-1.22 [facility] eGFR- Amer. >60 Normal [facility] eGFR-All Other Races >60 Normal [facility] Comment on above: Result Comment: eGFR (Estimated GFR) Units of measure: mL/min/1.73 meters squared eGFR is derived from the reexpressed MDRD Study equation using the following parameters: serum creatinine, age, gender and race. The creatinine assay has been calibrated to be traceable to IDGA. An eGFR <60 mL/min/1.73m2 for >3 months is consistent with chronic kidney disease. Refer to KDOQI guidelines for clinical interpretation. In patients with unstable renal function, e.g. those with acute kidney injury, the eGFR may not accurately reflect actual GFR. Glucose [Mass/Vol] 59 mg/dL Low 74-99 [facility] Potassium [Moles/Vol] 4.2 mmol/L Normal 3.7-5.1 [facility] Protein [Mass/Vol] 5.4 g/dL Low 6.3-8.0 [facility] Sodium [Moles/Vol] 136 mmol/L Normal 136-144 [facility] Urea nitrogen [Mass/Vol] 16 mg/dL Normal 9-24 [facility] Magnesiumon 09-06-2020 Magnesium [Mass/Vol] 2.3 mg/dL Normal 1.7-2.3 [facility] NURSING PROGon 09-06-2020 NURSING PROG HNO ID: [id number] Author: Lubna Vaz RN Service: ? Author Type: Registered Nurse Type: Nursing Progress Note Filed: 09/06/2020 10:14 AM Note Text: Nursing Progress Note Patient Name: Jesus Shaver Patient Location: [place] [address] Daily Note The patients assessment without change. This note was completed by: Audra Vaz [facility] NUTRITIONon 09-06-2020 NUTRITION HNO ID: [id number] Author: Beverly Jain DTR Service: Nutrition Therapy Author Type: Preschool Teacher'S Assistant Type: Nutrition Filed: 09/06/2020 12:38 PM Note Text: NUTRITION THERAPY CIRCULAR SAWYER STONE NOTE SERVICE DATE: 09/06/2020 SERVICE TIME: 10:35 AM Visit Type: Length of Stay 65 year old man with history of MRDD who lives in a senior care was transferred from [facility] for obstructive jaundice. Plan of Care: Supplements: Ensure Enlive Follow-Up: Monitor weekly Nursing Admission Assessment Malnutrition Score: Nutrition Intake: Diet Orders (From admission, onward) Start Ordered 09/04/20 1430 DIET REGULAR START NOW 09/04/20 1417 Appetite: Good Nursing reports 100% at breakfast ~ 662 kcals and 16 grams of protein. Pt. [id number] Anthropometrics: HT/WT/BMI 06/04/2018 11/01/2018 11/28/2018 06/16/2020 HEIGHT WEIGHT 96.163 kg 93.532 kg 83.008 kg There is no height or weight on file to calculate BMI. Weight Change: Decreased 23.1# wt loss ~ 11% Food Preferences: Will provide nutrition supplements with meals Billing Type: Routine Care/15 min Number of Increments: 2 SIGNATURE: Beverly Jain DTR PATIENT NAME: Jesus Shaver DATE: September 06, 2020 TIME: 12:35 PM PAGER: [phone] Normal [facility] Phosphoruson 09-06-2020 Phosphate [Mass/Vol] 2.7 mg/dL Normal 2.7-4.8 [facility] Protimeon 09-06-2020 PT INR 1.0 Normal 0.9-1.3 [facility] Comment on above: Result Comment: Rocio min K Antagonist (VKA) Therapeutic Range: INR 2 to 3 (Target INR of 2.5) Note: For patients treated with VKA drugs, such as warfarin, the [place] [employer] 2012 Guideline recommends a therapeutic INR range of 2 to 3 (target INR of 2.5). This recommendation includes high-risk patients with antiphospholipid syndrome with previous arterial or venous thromboembolism, current-generation mechanical or bioprosthetic aortic heart valve replacement. Note: Patients with mechanical aortic valve replacement and additional risk factors for thromboembolic events (atrial fibrillation, previous thromboembolism, LV dysfunction, hypercoagulable conditions) or an older generation mechanical AVR (i.e., ball in-Cage) or any mechanical MVR should have a INR therapeutic range of 2.5 to 3.5 (target INR of 3). Elvi GH, et al. Chest 2012, 141:7S-47S Jermaine RA et al. JACC 2017, 70: 252-289 PT Sec 11.2 sec Normal 9.7-13.0 [facility] THERAPY NTon 09-06-2020 THERAPY NT HNO ID: [id number] Author: Christopher Lomeli, PT Service: Physical Therapy Author Type: Physical Therapist Type: Therapy (PT/OT/Speech/Resp) Filed: 09/06/2020 2:51 PM Note Text: Physical Therapy Treatment SERVICE DATE: 09/06/2020 SERVICE TIME: 1431 to 1440 ROOM: [place] [address] Recommended Discharge Disposition: Home PT Recommended Discharge Disposition Comments: not sure of pt's baseline for functional mobility. Per previous notes - appears pt uses w/c or walker for mobility with assist of staff. If [facility] can manage pt's needs, then pt would benefit from returning to senior care. Continue to assess d/c needs. Anticipated Discharge Needs: Physical Assist at Home Physical Assist at Home for: Transfers;Ambulation;Clean ing;Laundry;Meals;Medicati on Management;Stairs;Safety;S elf Care;Transportation;Wheelc hair Mobility;Shopping Recommended Discharge Equipment: To Be Determined PT 6 Clicks Score: 11 Precautions/Activity Restrictions: Fall Risk;Bed/Chair Alarm;Seizure Isolation Type: None Current Hospital Course: Pt is a 65yom adm with acute obstructive jaundice - scheduled for ERCP today. Reason for Hospital Admission: jaundice Relevant Past Medical History: MRDD, seizures Response to Therapy Interventions: Limited participation Physical Therapy Problem List: Cognitive Deficit;Safety Deficits;Impaired Self Care;Decreased Activity Tolerance;Functional Mobility Impairment;Balance Impaired Treatment Interventions: Education;Functional Mobility Training Home Environment Patient Lives With: Facility Care (pt lives in senior care) Assistance Available: 24 Hour Tub/Shower Type: has assist Laundry: has assist Equipment Owned: Wheeled Walker;Wheelchair Prior Functional Level: Required Assistance Assistance Required With: Transfers;Ambulation;Clean ing;Laundry;Meals;Medicati on Management;Stairs;Safety;S elf Care;Shopping;Wheelchair Mobility;Transportation Prior Functional Level Comments: pt is poor historian - from previous progress notes - appears that pt uses walker or w/c with assist of staff. Pt has 24/7 assist for all mobility. Per chart - pt has charlotte lift as well. Patient Report: Pt cleared by nursing for therapy CURRENT FUNCTIONAL STATUS: Most recent performance Current Functional Mobility Assist Level Additional Information Rolling Moderate Assistance Supine to Sit (pt declining to attempt) Sit to Supine Scooting Sit to Stand Stand to Sit Bed to Chair Toilet/Commode Gait Stairs Curb Step Car Transfer Blank marquez indicate activity not attempted Pt with very withdrawn and somnolent appearance. Pt able to be engaged and difficult to redirect. Pt agreeable to attempt at EOB at efforts for comforting and pain reduction. Pt was able to initiate roll with mod A with education on breathing techniques and hand placement with transfer. Pt moved to side and abruptly requested therapy to stop. Pt positioned back supine per turning schedule. Discussed with nursing about current limits and pt's request to return to facility. Will decrease frequency and encourage chair position if pt not actively willing to participate. Balance: Static Sitting;Dynamic Sitting;Static Standing;Dynamic Standing Static Sitting Balance: Fair Patient able to maintain balance with handhold support, may require occasional minimal assistance Dynamic Sitting Balance: Fair Patient accepts minimal challenge, able to maintain balance while turning head/trunk Static Standing Balance: Poor Patient requires handhold support and moderate to maximal assistance to maintain position Dynamic Standing Balance: Poor Patient unable to accept challenge or move without loss of balance JH-HLM: 6: Walk 10 steps or more Learning/Educational Needs: Discharge Plan;Functional Activities/Mobility;Plan of Care;Rehabilitation Techniques and Procedures;Safety Goals for Plan of Care: Patient /Caregiver Goals: Other: See Comment (pt unable to state) Able to perform HEP with: Verbal Cues Only Rolling with: Minimal Assistance Transfer supine to/from sit with: Minimal Assistance Ambulate with: Minimal Assistance Distance: 50ft Device: Wheeled Walker Transfer: all functional transfers- Latesha x 1 Progress Toward Goals: Not progressing toward goals Due To: cognition, desire, and motivation Rehab Potential: Fair Patient will be discontinued from Physical Therapy when no further skilled needs are identified in this setting. PLAN: Treatment Frequency (times per week): 2 Current admission Plan of Care developed with: Patient TREATMENT INTERVENTIONS: Therapy Diagnosis: Reduced mobility-other;Unsteadines s on feet;Muscle Weakness (generalized) Interventions Provided: Therapeutic Activity (50121) Therapeutic Activity (19383) Treatment Minutes: 9 $ Therapeutic Activity (02849) Billed Units: 1 unit Training AND education provided in: Benefits of in-hospital mobility, Bed mobility, Discharge p (more content not included)... Normal [facility] THERAPY NT HNO ID: [id number] Author: Christopher Lomeli, PT Service: Physical Therapy Author Type: Physical Therapist Type: Therapy (PT/OT/Speech/Resp) Filed: 09/06/2020 2:43 PM Note Text: PHYSICAL THERAPY MISSED VISIT SERVICE DATE: 09/06/2020 SERVICE TIME: 1325 to 1325 ROOM: [place] [address] Attempted Treatment. Patient not seen due to Declined. Pt declining to move secondary to pain. Pt with lengthy redirection after discussion and agreeable for therapy to attempt later this date. Will follow up later this date. SIGNATURE: Christopher Lomeli PT PATIENT NAME: Jesus Shaver DATE: September 06, 2020 TIME: 2:42 PM Normal [facility] CBC and Differentialon 09-05 Abs Baso 0.10 k/uL Normal <0.11 [facility] Abs [place] 0.59 k/uL Normal <0.87 [facility] Abs Neut 5.36 k/uL Normal 1.45-7.50 [facility] ANC(includeSEG+BAND) 5.36 k/uL Normal [facility] Anisocytosis Ql (Bld) Present Normal [facility] Basophils/100 WBC (Bld) 1.0 % Normal [facility] DTYPE Manual Diff Normal [facility] Eosinophils (Bld) [#/Vol] 0.29 10*3/uL Normal <0.46 [facility] Eosinophils/100 WBC (Bld) 3.0 % Normal [facility] Erythrocyte distribution width (RBC) [Ratio] 20.4 % High 11.5-15.0 [facility] Hematocrit (Bld) [Volume fraction] 31.6 % Low 39.0-51.0 [facility] Hemoglobin (Bld) [Mass/Vol] 11.3 g/dL Low 13.0-17.0 [facility] Left Shift Present Normal [facility] Lymphocytes (Bld) [#/Vol] 3.02 10*3/uL Normal 1.00-4.00 [facility] Lymphocytes/100 WBC (Bld) 31.0 % Normal [facility] MCH 33.1 pG Normal 26.0-34.0 [facility] MCHC (RBC) [Mass/Vol] 35.8 g/dL Normal 30.5-36.0 [facility] MCV (RBC) [Entitic vol] 92.7 fL Normal 80.0-100.0 [facility] Metamyelocytes/100 WBC (Bld) 2.0 % Normal [facility] Monocytes/100 WBC (Bld) 6.0 % Normal [facility] Myelo% 2.0 % Normal [facility] Neutrophils/100 WBC (Bld) 55.0 % Normal [facility] Platelet Estimate Platelet estimate decreased Normal [facility] Platelet mean volume (Bld) [Entitic vol] 12.4 fL Normal 9.0-12.7 [facility] Platelets (Bld) [#/Vol] 99 10*3/uL Low 150-400 [facility] Comment on above: Result Comment: Samp le checked for a clot. Polychromasia Slight Normal [facility] RBC (Bld) [#/Vol] 3.41 10*6/uL Low 4.20-6.00 [facility] Target Cells Few Normal [facility] WBC (Bld) [#/Vol] 9.75 10*3/uL Normal 3.70-11.00 [facility] Comp Metabolic Panelon 09-05 Albumin [Mass/Vol] 2.7 g/dL Low 3.9-4.9 [facility] ALP [Catalytic activity/Vol] 404 U/L High 38-113 [facility] ALT [Catalytic activity/Vol] 68 U/L High 10-54 [facility] Anion gap [Moles/Vol] 8 mmol/L Low 9-18 [facility] AST [Catalytic activity/Vol] 76 U/L High 14-40 [facility] Bilirubin [Mass/Vol] 12.0 mg/dL High 0.2-1.3 [facility] Calcium [Mass/Vol] 9.7 mg/dL Normal 8.5-10.2 [facility] Chloride [Moles/Vol] 104 mmol/L Normal 97-105 [facility] CO2 [Moles/Vol] 27 mmol/L Normal 22-33 [facility] Creatinine [Mass/Vol] 0.93 mg/dL Normal 0.73-1.22 [facility] eGFR- Amer. >60 Normal [facility] eGFR-All Other Races >60 Normal [facility] Comment on above: Result Comment: eGFR (Estimated GFR) Units of measure: mL/min/1.73 meters squared eGFR is derived from the reexpressed MDRD Study equation using the following parameters: serum creatinine, age, gender and race. The creatinine assay has been calibrated to be traceable to IDMS. An eGFR <60 mL/min/1.73m2 for >3 months is consistent with chronic kidney disease. Refer to KDOQI guidelines for clinical interpretation. In patients with unstable renal function, e.g. those with acute kidney injury, the eGFR may not accurately reflect actual GFR. Glucose [Mass/Vol] 68 mg/dL Low 74-99 [facility] Potassium [Moles/Vol] 4.0 mmol/L Normal 3.7-5.1 [facility] Protein [Mass/Vol] 5.4 g/dL Low 6.3-8.0 [facility] Sodium [Moles/Vol] 139 mmol/L Normal 136-144 [facility] Urea nitrogen [Mass/Vol] 9 mg/dL Normal 9-24 [facility] Ferritinon 09-05-2020 Ferritin [Mass/Vol] 1120.0 ng/mL High 30.3-565.7 [facility] Comment on above: Performed By: #### L D6 ####[address] [phone] Iron (FOR EAST ONLY)on 09-05 Iron [Mass/Vol] 67 ug/dL Normal 30-140 [facility] Comment on above: Performed By: #### L D6 ####[facility] [id number] [place], [place] [phone] LDon 09-05-2020 LD 194 U/L Normal 135-225 [facility] Comment on above: Performed By: #### L D6 ####[place] [id number] [place], [place] [phone] Magnesiumon 09-05-2020 Magnesium [Mass/Vol] 2.1 mg/dL Normal 1.7-2.3 [facility] NURSING PROGon 09-05-2020 NURSING PROG HNO ID: [id number] Author: Mami Diana INOCENCIO Service: Nursing Author Type: Registered Nurse Type: Nursing Progress Note Filed: 09/05/2020 8:01 PM Note Text: Nursing Progress Note Patient Name: Jesus Shaver Patient [facility] Assumed care of patient. 1949 Pt assessment done as charted, VSS. No c/o pain or nausea at this time. Pt alert to self. Biliary drain to R wnl. External cath in place and skin intact. q2 turns in place. No further needs at this time, will continue to monitor. Safety maintained and call light in reach with bed alarm on and functioning. This note was completed by: Mami Diana [facility] NURSING PROG HNO ID: [id number] Author: Elzbieta Gonsales RN Service: ? Author Type: Registered Nurse Type: Nursing Progress Note Filed: 09/05/2020 4:41 PM Note Text: Nursing Progress Note Patient Name: Jesus Shaver Patient Location: [facility] Daily Note: 0800 assumed care of pt, resting comfortably with no needs, safety checks in place, possessions in reach, bed alarm on and functioning. 1040 assessment as charted, VSS on RA, pt aaox1, disoriented to time and place. Pt offers no complaints, resting comfortably, bed alarm on and functioning, doing q2 turns as allotted. Pt following basic commands, bed bath provided. 1400 noticed multiple episodes of pauses on telemetry, spoke with Dr. Worrell, pt appears to be asymptomatic pt is easily aroused, VSS on RA and wakes up with verbal stimuli. Safety checks in place, cardiology consulted per MD. This note was completed by: Elzbieta Gonsales Normal [facility] Phosphoruson 09-05-2020 Phosphate [Mass/Vol] 2.2 mg/dL Low 2.7-4.8 [facility] Protimeon 09-05-2020 PT INR 1.1 Normal 0.9-1.3 [facility] Comment on above: Result Comment: Rocio min K Antagonist (VKA) Therapeutic Range: INR 2 to 3 (Target INR of 2.5) Note: For patients treated with VKA drugs, such as warfarin, the [place] [employer] 2012 Guideline recommends a therapeutic INR range of 2 to 3 (target INR of 2.5). This recommendation includes high-risk patients with antiphospholipid syndrome with previous arterial or venous thromboembolism, current-generation mechanical or bioprosthetic aortic heart valve replacement. Note: Patients with mechanical aortic valve replacement and additional risk factors for thromboembolic events (atrial fibrillation, previous thromboembolism, LV dysfunction, hypercoagulable conditions) or an older generation mechanical AVR (i.e., ball in-Cage) or any mechanical MVR should have a INR therapeutic range of 2.5 to 3.5 (target INR of 3). Elvi GH, et al. Chest 2012, 141:7S-47S Jermaine RA, et al. JAC 2017, 70: 252-289 Performed By: #### L D6 #### [facility] [address] [place], [place] [address] PT Sec 11.4 sec Normal 9.7-13.0 [facility] Comment on above: Performed By: #### L D6 #### [facility] [address] [place], [place] [address] TIBCon 09-05-2020 TIBC 179 ug/dL Low 210-415 [facility] Comment on above: Performed By: #### L D6 ####[facility] [address] [place], [place] [phone] Transferrin Saturatn 37 % Normal 11-46 [facility] Comment on above: Performed By: #### L D6 ####[facility] [address], [place] [phone] Ammoniaon 09-04-2020 Ammonia (P) [Moles/Vol] 33 umol/L Normal 16-60 [facility] CBC and Differentialon 09-04 Abs Baso 0.00 k/uL Normal <0.11 [facility] Abs [place] 0.47 k/uL Normal <0.87 [facility] Abs Neut 6.59 k/uL Normal 1.45-7.50 [facility] ANC(includeSEG+BAND) 6.59 k/uL Normal [facility] Anisocytosis Ql (Bld) Present Normal [facility] Basophils/100 WBC (Bld) 0.0 % Normal [facility] DTYPE Manual Diff Normal [facility] Eosinophils (Bld) [#/Vol] 0.09 10*3/uL Normal <0.46 [facility] Eosinophils/100 WBC (Bld) 1.0 % Normal [facility] Erythrocyte distribution width (RBC) [Ratio] 19.9 % High 11.5-15.0 [facility] Hematocrit (Bld) [Volume fraction] 29.8 % Low 39.0-51.0 [facility] Hemoglobin (Bld) [Mass/Vol] 10.7 g/dL Low 13.0-17.0 [facility] Left Shift Present Normal [facility] Lymphocytes (Bld) [#/Vol] 1.98 10*3/uL Normal 1.00-4.00 [facility] Lymphocytes/100 WBC (Bld) 21.0 % Normal [facility] MCH 33.2 pG Normal 26.0-34.0 [facility] MCHC (RBC) [Mass/Vol] 35.9 g/dL Normal 30.5-36.0 [facility] MCV (RBC) [Entitic vol] 92.5 fL Normal 80.0-100.0 [facility] Metamyelocytes/100 WBC (Bld) 2.0 % Normal [facility] Monocytes/100 WBC (Bld) 5.0 % Normal [facility] Myelo% 1.0 % Normal [facility] Neutrophils/100 WBC (Bld) 70.0 % Normal [facility] Platelet Estimate Platelet estimate decreased Normal [facility] Platelet mean volume (Bld) [Entitic vol] 12.4 fL Normal 9.0-12.7 [facility] Platelets (Bld) [#/Vol] 93 10*3/uL Low 150-400 [facility] Comment on above: Result Comment: Jeanmarie le checked for a clot. RBC (Bld) [#/Vol] 3.22 10*6/uL Low 4.20-6.00 [facility] WBC (Bld) [#/Vol] 9.41 10*3/uL Normal 3.70-11.00 [facility] CNPNon 09-04-2020 CNPN Telephone (HLPRAD) -- JESUS SHAVER ([id number]) 1955 Date Time Provider Department 09/04/20 MANSI PATTON During your visit today, we recorded the following information about you: Mansi Patton MD 09/04/2020 2:15 PM Signed Current inpt. MRDD, failed ERCP, has PTHC, cirrhosis. Will need follow up. MD Adam Gastelum MD 09/05/2020 11:48 AM Signed Discussed with Dr. Torres. Plan is to do a repeat ERCP and 6 to 8 weeks time as he will need that to remove the PD stent regardless. Can do a rendezvous and remove the external drain and do a sphincterotomy and stone extraction at the same time [facility] pool>>> ERCP 6 to 8 weeks time. Removal of pancreatic stent. Removal of bile duct stone and external biliary drainage catheter. Patient is in a senior care. He is still in the hospital so can select a date and coordinate with the senior care after his discharge. Adam Caal MD July [facility] 09/14/2020 1:59 PM Signed Spoke to nurse Galaviz, pt is at [facility]. Pt is scheduled for ERCP 10/13/20 at .I will fax instructions to [phone] Anastacia said pt is not on blood thinners. Patient does not need to arrive on stretcher. They will do covid test at halfway and fax us results. July Fernie GOODRICH 09/14/2020 2:06 PM Signed Addended by: FERNIE GOODRICH JULY on: 09/14/2020 02:06 PM Modules accepted: Orders July Fernie GOODRICH 10/12/2020 3:28 PM Signed Message sent to Dr Lu to let his staff know to contact patients facility [facility]. Procedure canceled at with Vladic 10/13. Dr Lu will do ercp 10/27. Allergies As of Date: 09/04/2020 Noted Allergy Reaction KEPPRA (LEVETIRACETAM) 05/14/2015 14 - Other: See Comments Comments: Increased seizures VICKS VAPORUB (TTPWQ-[id number]-UVC*2015 2 - Rash Date Reviewed: 09/04/2020 Reviewed by: Vanda Duran RN - Fully Assessed Reason for Visit: Clinical Update [6244] Primary Visit Diagnosis:Choledocholithia sis [K80.50] Order(s):ERCP GEN ANES [0669627] Order #: [id number] FUTURE Prescriptions as of 09/04/2020 Sig: CERTAVITE-ANTIOXIDANT 18 MG-4* Take 1 tablet by mouth once d* CALCIUM CARBONATE 500 MG (1,2* TAKE (1) TABLET BY MOUTH TWIC* POLYETHYLENE GLYCOL 3350 17 G* Take 1 Packet by mouth once d* DIVALPROEX 500 MG TABLET,MARVA* Take 3 tablets by mouth daily* LAMOTRIGINE ER 100 MG TABLET,* Take 1 tablet by mouth once d* SENNOSIDES 8.6 MG TABLET Take 1 tablet by mouth twice * PYRIDOXINE (VITAMIN B6) 100 M* Take 1 tablet by mouth once d* ZONISAMIDE 100 MG CAPSULE Take 1 capsule by mouth twice* BISACODYL 10 MG RECTAL SUPPOS* 1 Suppository by RECTAL route* MAGNESIUM HYDROXIDE 400 MG/5 * Take 15 mL by mouth once donya* TAMSULOSIN 0.4 MG CAPSULE Take 1 capsule by mouth daily* X ACETAMINOPHEN 650 MG RECTAL S* 1 Suppository by RECTAL route* X ACETAMINOPHEN 325 MG TABLET Take 2 tablets by mouth every* COMPOUNDED PRESCRIPTION Wheelchair with seat belt COMPOUNDED PRESCRIPTION Charlotte Lift Problem List As Of Date 09/04/2020 Noted Resolved Seizure disorder (HCC) [G40.909] 12/28/2015 Screen for colon cancer [Z12.11] 01/02/2018 03/26/2018 Gallbladder polyp [K82.4] 03/13/2018 Ataxia [R27.0] 06/16/2020 Development delay [R62.50] 06/16/2020 Obstructive jaundice [K83.1] 08/28/2020 Jaundice [R17] 08/28/2020 Encounter Status:Closed by ADAM CAAL on 09/05/20 [facility] CONSULT PROGon 09-04-2020 CONSULT PROG HNO ID: [id number] Author: Mansi Patton MD Service: Gastroenterology Author Type: Physician Type: Consult Progress Note Filed: 09/04/2020 2:14 PM Note Text: CONSULT GI PROGRESS NOTES PATIENT NAME: Jesus Shaver SERVICE DATE: 09/04/2020 SERVICE TIME: 2:11 PM CONSULTING SERVICE: GI ASSESSMENT AND PLAN - S/p PTHC Cirrhosis Stable from GI. OK for discharge. Will need Follow up with IR for management of drain. Liver follow up per Dr. Torres, messaged SUBJECTIVE INTERVAL HPI: sleeping. Reviewed with nursing, tolerating diet OBJECTIVE BP 100/59 Pulse 58 Temp (Src) 97.7 (Oral) Resp 18 Ht [ISAAC[ (0.00m) SpO2 93% O2 Therapy: Room Air PHYSICAL EXAM: GENERAL: in NAD SKIN: Skin warm, dry, pink NEURO: Alert, Oriented x 0 ABDOMEN: Abdomen soft, non-distended, non-tender DATA: Diagnostic tests reviewed for today's visit: Most recent lab SIGNATURE: Mansi Patton MD DATE: September 04, 2020 TIME: 2:11 PM [facility] Comp Metabolic Panelon 09-04 Albumin [Mass/Vol] 2.6 g/dL Low 3.9-4.9 [facility] ALP [Catalytic activity/Vol] 439 U/L High 38-113 [facility] ALT [Catalytic activity/Vol] 81 U/L High 10-54 [facility] Anion gap [Moles/Vol] 7 mmol/L Low 9-18 [facility] AST [Catalytic activity/Vol] 109 U/L High 14-40 [facility] Bilirubin [Mass/Vol] 15.4 mg/dL High 0.2-1.3 [facility] Calcium [Mass/Vol] 9.1 mg/dL Normal 8.5-10.2 [facility] Chloride [Moles/Vol] 101 mmol/L Normal 97-105 [facility] CO2 [Moles/Vol] 28 mmol/L Normal 22-33 [facility] Creatinine [Mass/Vol] 0.86 mg/dL Normal 0.73-1.22 [facility] Comment on above: Result Comment: Resu lt may be falsely decreased due to icteric interference. eGFR- Amer. >60 Normal [facility] eGFR-All Other Races >60 Normal [facility] Comment on above: Result Comment: eGFR (Estimated GFR) Units of measure: mL/min/1.73 meters squared eGFR is derived from the reexpressed MDRD Study equation using the following parameters: serum creatinine, age, gender and race. The creatinine assay has been calibrated to be traceable to IDMS. An eGFR <60 mL/min/1.73m2 for >3 months is consistent with chronic kidney disease. Refer to KDOQI guidelines for clinical interpretation. In patients with unstable renal function, e.g. those with acute kidney injury, the eGFR may not accurately reflect actual GFR. Glucose [Mass/Vol] 90 mg/dL Normal 74-99 [facility] Potassium [Moles/Vol] 3.5 mmol/L Low 3.7-5.1 [facility] Protein [Mass/Vol] 4.9 g/dL Low 6.3-8.0 [facility] Sodium [Moles/Vol] 136 mmol/L Normal 136-144 [facility] Urea nitrogen [Mass/Vol] 8 mg/dL Low 9-24 [facility] Magnesiumon 09-04-2020 Magnesium [Mass/Vol] 2.0 mg/dL Normal 1.7-2.3 [facility] NURSING PROGon 09-04-2020 NURSING PROG HNO ID: [id number] Author: Daisy Herrera RN Service: Nursing Author Type: Registered Nurse Type: Nursing Progress Note Filed: 09/04/2020 9:51 PM Note Text: Nursing Progress Note Patient Name: Jesus Shaver Patient Location: [place] [address]/ Daily Note: 1914 - Received bedside report from day shift RN. Pt resting in bed with no needs at this time. Call light in reach. 2044 - Assessed pt, See flowsheet. VSS. External cath placed to suction. 0000 - Bath complete, Oral care complete. This note was completed by: Daisy Herrera [facility] NURSING PROG HNO ID: [id number] Author: Vanda Duran RN Service: ? Author Type: Registered Nurse Type: Nursing Progress Note Filed: 09/04/2020 9:19 AM Note Text: Nursing Progress Note Patient Name: Jesus Shaver Patient Location: /[facility] Daily Note:Assessment complete. Pt awake and oriented only to self. Denies pain. Biliary drain with green liquid output to gravity. IVFs infusing. Call light in reach. This note was completed by: Vanda Duran [facility] NURSING PROG HNO ID: [id number] Author: Mami Camargo RN Service: Nursing Author Type: Registered Nurse Type: Nursing Progress Note Filed: 09/04/2020 3:19 AM Note Text: Nursing Progress Note Patient Name: Jesus Shaver Patient Location: / Daily Note:2000 Pt resting in bed, oriented to self only. IV infusing without difficulty. Agitated at times, able to follow very basic commands. Incontinence care given as needed. Call king within reach, bed alarm on for safety. 0000 Reassessed per flowsheet, no changes noted. Call king within reach. Bed alarm on for safety. This note was completed by: Mami Camargo [facility] Phosphoruson 09-04-2020 Phosphate [Mass/Vol] 2.1 mg/dL Low 2.7-4.8 [facility] ANES POSTPROC EVALon 021 ANES POSTPROC EVAL HNO ID: [id number] Author: Rosita West MD Service: Anesthesiology Author Type: Anesthesiologist Type: Anesthesia Postprocedure Evaluation Filed: 09/03/2020 4:12 PM Note Text: POST ANESTHESIA EVALUATION NOTE : 1955 Procedure Summary Date: 09/03/20 Room / Location: IR / IR Anesthesia Start: 1325 Anesthesia Stop: 152 Procedure: CHOLECYSTOSTOMY PERCUTANEOUS CATH PLACEMENT CHOLECYSTOGRAM RADIOLOGY SUPERVISIO/INTERPRETATION (Pending ) Diagnosis: Obstructive jaundice (Obstructive jaundice [K83.1]) Surgeons: Lukasz Barboza MD Responsible Provider: Rosita West MD Anesthesia Type: general ASA Status: 4 Anesthesia Type: general Last vitals Vitals Value Taken Time BP 103/57 09/03/20 1600 Temp 36 ?C (96.8 ?F) 09/03/20 1505 Pulse 61 09/03/20 1604 Resp 16 09/03/20 1604 SpO2 93 % 09/03/20 1604 Vitals shown include unvalidated device data. Post Anesthesia Patient Status Patient Evaluation: PACU. PACU/ICU Patient Condition: stable. Neurological Status: aware and responsive. Pulmonary Status: breathing comfortably on room air Airway Control: returned to baseline unsupported. Cardiovascular Status: stable. Pain Management: clinically adequate Postoperative Hydration: acceptable. Intraoperative Events: no significant anesthesia events Post Operative Nausea/Vomiting Status: no significant post operative nausea or vomiting Anesthetic Observations: Recommendation: continue current plan of care. No complications documented. SIGNATURE: Rosita West MD PATIENT NAME: Jesus Shaver DATE: September 03, 2020 TIME: 4:12 PM CSN: [id number] [facility] ANES PRE-OPon 09-03-2020 ANES PRE-OP HNO ID: [id number] Author: Rosita West MD Service: Anesthesiology Author Type: Anesthesiologist Type: Anesthesia Preprocedure Evaluation Filed: 09/03/2020 1:18 PM Note Text: ANESTHESIOLOGY DAY OF SURGERY NOTE : 1955 Procedure(s) (LRB): CHOLECYSTOSTOMY PERCUTANEOUS CATH PLACEMENT CHOLECYSTOGRAM RADIOLOGY SUPERVISIO/INTERPRETATION (Pending) Surgeon(s): Lukasz Barboza MD There is no height or weight on file to calculate BMI. Most recent hematocrit and potassium results: Hematocrit 31.2 09/03/2020 Potassium 4.1 09/03/2020 Relevant Problems NEURO-PSYCH (+) Seizure disorder (HCC) PAST MEDICAL HISTORY Diagnosis Date - Acute cholecystitis - Bilateral leg weakness - Mild mental retardation - Seizure disorder (HCC) PAST SURGICAL HISTORY Procedure Laterality Date - PAST SURGICAL HISTORY OF VNS - REMOVAL TESTIS,SIMPLE Right 10/20/2019 Orchiectomy I - PHYSICAL EVALUATION AIRWAY Patient intubated: No. Tracheostomy tube not present Mallampati: II. TM distance: >3 FB. Neck ROM: limited extension. Mouth opening: adequate. Short neck: no. Thick neck: no DENTAL Dental findings: teeth intact. Additional exam findings: no II - ANESTHESIA PLAN ASA Score: 4 Anesthetic Plan: general Airway type: ETT The patient is not a current smoker. NPO Status: adequate Monitoring plan: standard ASA. Postoperative analgesic plan: multimodal analgesia. Anesthetic Risks, Benefits, Alternatives, Personnel Discussed. Consent obtained from: patient.Patient / Surrogate agrees to blood products: Yes DNR status not reviewed with patient and/or family prior to surgery. Significant changes in the patient condition since the History and Physical, not otherwise documented in primary service progress note: no. Potential Anesthesia issues that may suggest increased risk of complications or contraindication to planned procedure: none. No vitals data found for the desired time range. Facility-Administered Medications as of 09/03/2020 Medication Dose Route Frequency - [COMPLETED] NaCl 0.9% 1,000 mL iv bolus 1,000 mL INTRAVENOUS ONCE - dextrose 5% in NaCl 0.45% with 20 mEq/L KCl iv infusion 80 mL/hr INTRAVENOUS CONTINUOUS - [COMPLETED] potassium chloride iv piggyback 20 mEq/100 mL 20 mEq INTRAVENOUS q 1 H - [COMPLETED] potassium chloride 40 mEq oral powder (KLOR-CON) 40 mEq ORAL ONCE - [COMPLETED] phytonadione (vitamin K1) 10 mg injection (VITAMIN K) 10 mg SUBCUTANEOUS DAILY - divalproex DR 1,500 mg tab(s) (DEPAKOTE) 1,500 mg ORAL AT BEDTIME - zonisamide 100 mg cap(s) (ZONEGRAN) 100 mg ORAL BID - tamsulosin 0.4 mg cap(s) (FLOMAX) 0.4 mg ORAL AT BEDTIME - senna 8.6 mg tab(s) (SENOKOT) 8.6 mg ORAL BID - polyethylene glycol 3350 17 g packet (MIRALAX, GLYCOLAX) 17 g ORAL DAILY - lamoTRIgine 50 mg tab(s) (LaMICtal) 50 mg ORAL BID - piperacillin-tazobactam iv piggyback 3.375 g in dextrose (iso-osmotic) 50 mL (ZOSYN) 3.375 g INTRAVENOUS q 6 H - [] iv contrast (radiology procedure) INTRAVENOUS DIRECTED PRN - [COMPLETED] piperacillin-tazobactam iv piggyback 3.375 g in dextrose (iso-osmotic) 50 mL (ZOSYN) 3.375 g INTRAVENOUS ONCE Outpatient Medications as of 09/03/2020 Medication Sig - multivitamin-ferrous fumarate-folic acid (CERTAVITE-ANTIOXIDANT) Take 1 tablet by mouth once daily. - deqdfcj-ondvohnhs-uhrfoat D3 (OYSTER SHELL CALCIUM-VITAMIN D) 500 mg(1,250mg) -200 unit per tablet TAKE (1) TABLET BY MOUTH TWICE A DAY. - polyethylene glycol 3350 (GAVILAX) 17 gram packet Take 1 Packet by mouth once daily. - divalproex DR (DEPAKOTE) 500 mg EC tablet Take 3 tablets by mouth daily at bedtime. at bedtime - lamoTRIgine ER (LAMICTAL XR) 100 mg 24 hr tablet Take 1 tablet by mouth once daily. - senna (SENNA) 8.6 mg tab Take 1 tablet by mouth twice daily. - pyridoxine, vitamin B6, (VITAMIN B-6) 100 mg tablet Take 1 tablet by mouth once daily. - zonisamide (ZONEGRAN) 100 mg capsule Take 1 capsule by mouth twice daily. - acetaminophen (TYLENOL) 650 mg suppository 1 Suppository by RECTAL route every 4 hours as needed. - acetaminophen (TYLENOL) 325 mg tablet Take 2 tablets by mouth every 6 hours as needed for Pain. - bisacodyl (DULCOLAX) 10 mg supp 1 Suppository by RECTAL route once daily as needed. - magnesium hydroxide (MILK OF MAGNESIA) 400 mg/5 mL suspension Take 15 mL by mouth once daily as needed for Constipation. Notify physician if no BM in 4 days - tamsulosin ER (FLOMAX) 0.4 mg Take 1 capsule by mouth daily at bedtime. - COMPOUNDED PRESCRIPTION Wheelchair with seat belt - COMPOUNDED PRESCRIPTION Charlotte Lift I have interviewed and examined the patient. I have reviewed the medical record and/or the pre-anesthesia evaluation, pertinent labs, and test results. This contains updated information obtained within 48 hours of Surgery/Procedure. SIGNATURE: Rosita West MD PATIENT NAME: Jesus Shaver DATE: September 03, 2020 (more content not included)... [facility] CASE MANAGEMon 09-03-2020 CASE MANAGEM HNO ID: [id number] Author: EZE Del Rio Service: Social Work Author Type: Supervisor Public Health Nursing Type: Care Mgt Progress Note Filed: 09/03/2020 4:23 PM Note Text: CARE MANAGEMENT PROGRESS NOTE SERVICE DATE: 09/03/2020 SERVICE TIME: 4:20 PM LOS: 6 days Needs Prior to Discharge: To Be Determined SW following for support and d/c planning back to [facility] at hospital d/c. SW has reached out to consulting group analyst to see if they can accept patient back with a biliary drain and await return phone call. Patient off floor for procedure today. SIGNATURE: EZE Del Rio PATIENT NAME: Jesus Shaver DATE: September 03, 2020 TIME: 4:19 PM PAGER/CONTACT #: [phone] [facility] CBC and Differentialon 09-03 Abs Baso 0.00 k/uL Normal <0.11 [facility] Abs [place] 0.78 k/uL Normal <0.87 [facility] Abs Neut 6.35 k/uL Normal 1.45-7.50 [facility] ANC(includeSEG+BAND) 6.35 k/uL Normal [facility] Anisocytosis Ql (Bld) Present Normal [facility] Basophils/100 WBC (Bld) 0.0 % Normal [facility] DTYPE Manual Diff Normal [facility] Eosinophils (Bld) [#/Vol] 0.20 10*3/uL Normal <0.46 [facility] Eosinophils/100 WBC (Bld) 2.0 % Normal [facility] Erythrocyte distribution width (RBC) [Ratio] 19.4 % High 11.5-15.0 [facility] Hematocrit (Bld) [Volume fraction] 31.2 % Low 39.0-51.0 [facility] Hemoglobin (Bld) [Mass/Vol] 11.1 g/dL Low 13.0-17.0 [facility] Left Shift Present Normal [facility] Lymphocytes (Bld) [#/Vol] 2.25 10*3/uL Normal 1.00-4.00 [facility] Lymphocytes/100 WBC (Bld) 23.0 % Normal [facility] MCH 32.8 pG Normal 26.0-34.0 [facility] MCHC (RBC) [Mass/Vol] 35.6 g/dL Normal 30.5-36.0 [facility] MCV (RBC) [Entitic vol] 92.3 fL Normal 80.0-100.0 [facility] Metamyelocytes/100 WBC (Bld) 2.0 % Normal [facility] Monocytes/100 WBC (Bld) 8.0 % Normal [facility] Neutrophils/100 WBC (Bld) 65.0 % Normal [facility] Platelet Estimate Platelet estimate decreased Normal [facility] Platelet mean volume (Bld) [Entitic vol] 12.5 fL Normal 9.0-12.7 [facility] Platelets (Bld) [#/Vol] 108 10*3/uL Low 150-400 [facility] RBC (Bld) [#/Vol] 3.38 10*6/uL Low 4.20-6.00 [facility] Target Cells Many Normal [facility] WBC (Bld) [#/Vol] 9.77 10*3/uL Normal 3.70-11.00 [facility] CONSULT PROGon 09-03-2020 CONSULT PROG HNO ID: [id number] Author: Ivonne Robison APRN.RANDELL Service: Gastroenterology Author Type: Nurse Practitioner Type: Consult Progress Note Filed: 09/03/2020 1:14 PM Note Text: CONSULT GI PROGRESS NOTES PATIENT NAME: Jesus Shaver SERVICE DATE: 09/03/2020 SERVICE TIME: 1:09 PM CONSULTING SERVICE: GI in collaboration with Dr. oJsé Miguel ALVARADO living in a senior care ? Acute?Jaundice Hep viral panel/EBV negative On Depakote Unable to assess patient d/t MRDD, but noted some agitation -- 09/01 - s/p ERCP - failed cannulation of the bile duct, one pancreatic stent placed into ventral pancreatic duct -- 08/30 - s/p ERCP - failed cannulation, Stenotic major papilla.. Biliary sphincterotomy. -- Monitor LFTs -- PTHC drain was not done yesterday ?? Discussed with IR department, will be completed today ~ 2 pm? Cirrhosis history, biopsy proven Dec 2019. ? Etiology SUBJECTIVE INTERVAL HPI: Up in the bed incontinent of urine Profound jaundiced worsening transaminates and alk phos Afebrile No overt GI bleeding OBJECTIVE BP 106/58 Pulse 58 Temp (Src) 98.2 (Oral) Resp 18 Ht [ISAAC[ (0.00m) SpO2 98% O2 Therapy: Room Air PHYSICAL EXAM: GENERAL: in NAD SKIN: Skin warm, dry, jaundiced NEURO: Alert x self ABDOMEN: softly distended, no grimacing with deep palpation DATA: Diagnostic tests reviewed for today's visit: CBC, Coags, BMP, Mg, Phos Recent Labs 09/03/20 0724 09/02/20 0629 09/01/20 0750 WBC 9.77 8.19 6.65 HB 11.1* 10.5* 11.3* HCT 31.2* 29.7* 31.2* PLT 108* 87* 89* INR -- -- 1.0 NA 137 139 139 K 4.1 4.7 4.0 CHLOR 103 107* 107* CO2 27 24 24 BUN 8* 13 15 CREAT 0.90 0.87 0.90 GLUC 79 119* 105* CA 8.9 8.7 8.9 MG 2.0 2.1 2.2 P 1.7* 2.8 2.0* Liver Function, Amylase, AND Lipase Recent Labs 09/03/20 0724 09/02/20 0629 09/01/20 0750 TPROT Unable to assay. Specimen significantly icteric. 4.6* Unable to assay. Specimen significantly icteric. ALB 2.1* 2.0* 2.5* ALT 97* 98* 108* AST 139* 151* 182* ALKPHOS 515* 462* 504* TBILI 16.3* 15.8* 17.5* SIGNATURE: Ivonne Robison APRN.CNP DATE: September 03, 2020 TIME: 1:09 PM CALL OR TEXT: [phone] Normal [facility] Comp Metabolic Panelon 09-03 Albumin [Mass/Vol] 2.1 g/dL Low 3.9-4.9 [facility] ALP [Catalytic activity/Vol] 515 U/L High 38-113 [facility] ALT [Catalytic activity/Vol] 97 U/L High 10-54 [facility] Anion gap [Moles/Vol] 7 mmol/L Low 9-18 [facility] AST [Catalytic activity/Vol] 139 U/L High 14-40 [facility] Bilirubin [Mass/Vol] 16.3 mg/dL High 0.2-1.3 [facility] Calcium [Mass/Vol] 8.9 mg/dL Normal 8.5-10.2 [facility] Chloride [Moles/Vol] 103 mmol/L Normal 97-105 [facility] CO2 [Moles/Vol] 27 mmol/L Normal 22-33 [facility] Creatinine [Mass/Vol] 0.90 mg/dL Normal 0.73-1.22 [facility] Comment on above: Result Comment: Resu lt may be falsely decreased due to icteric interference. eGFR- Amer. >60 Normal [facility] eGFR-All Other Races >60 Normal [facility] Comment on above: Result Comment: eGFR (Estimated GFR) Units of measure: mL/min/1.73 meters squared eGFR is derived from the reexpressed MDRD Study equation using the following parameters: serum creatinine, age, gender and race. The creatinine assay has been calibrated to be traceable to IDMS. An eGFR <60 mL/min/1.73m2 for >3 months is consistent with chronic kidney disease. Refer to KDOQI guidelines for clinical interpretation. In patients with unstable renal function, e.g. those with acute kidney injury, the eGFR may not accurately reflect actual GFR. Glucose [Mass/Vol] 79 mg/dL Normal 74-99 [facility] Potassium [Moles/Vol] 4.1 mmol/L Normal 3.7-5.1 [facility] Protein, Total Unable to assay. Spe cimen significantly icteric. Normal 6.3-8.0 [facility] [facility] Sodium [Moles/Vol] 137 mmol/L Normal 136-144 [facility] Urea nitrogen [Mass/Vol] 8 mg/dL Low 9-24 [facility] IR PLACE CATH BILI DRAIN INT -EXTon 09-03-[address] CATH BILI DRAIN INT-EXT * * *Final Report* * * DATE OF EXAM: Sep 03 2020 2:50PM [facility] [id number] - IR PL[address] CATH BILI DRAIN INT-EXT / PROCEDURE REASON: PTHC * * * * Physician Interpretation * * * * RESULT: PROCEDURE: TRANSHEPATIC CHOLANGIOGRAM AND BILIARY DRAIN PLACEMENT Procedural Personnel Attending physician(s): Lukasz Barboza M.D. Fellow physician(s): None Resident physician(s): None Advanced practice provider(s): None Medical Student(s): None Pre-procedure diagnosis: Obstructive jaundice Post-procedure diagnosis: Same Indication: Biliary stones Additional clinical history: None PROCEDURE SUMMARY: - Percutaneous transhepatic cholangiogram(s) - Biliary drain placement(s) as described below - Additional procedure(s): None PROCEDURE DETAILS: Pre-procedure Consent: Risks, benefits, treatment options, potential complications and personnel to be involved were discussed (including the risks of radiation exposure, contrast and anesthesia administration, and any equipment needed for the procedure to ensure best possible outcome) with the legal physician relations representative and all questions were answered and consent was obtained prior to procedure. Premedicated for contrast allergy: n/a Transfusion of blood products: No Medication reconciliation: The patient's medications and allergies were reviewed in the electronic medical record and reconciled to the proposed procedure/treatment. Xuan-procedure discussion: The appropriate elements of the pre-procedure discussion, safety check list and sign-out were performed. Time out: A time out was performed immediately prior to procedure start with the nursing, anesthesia team, and interventional team, correctly identifying the name, date of , procedure, anatomy (including marking of site and side if applicable), patient position, procedure consent form, relevant diagnostic and radiology test results, antibiotic administration if applicable, safety precautions, and procedure-specific equipment needs. Start of procedure: 1401 End of procedure: 1450 Patient position: Supine Preparation: The site was prepared and draped using all elements of maximal sterile barrier technique including sterile gloves, sterile gown, cap, mask, large sterile sheet, sterile ultrasound probe cover, hand hygiene and cutaneous antisepsis. Antibiotics: Rocephin Antibiotic infusion start time: 1355 Prophylactic antibiotic administered: Within 1 hour of procedure start time or 2 hours for vancomycin or fluoroquinolones Additional med: None Additional med: None Contrast Contrast agent: OMNIPAQUE 300 Contrast volume (mL): 75 Image Guidance: Access was obtained into the target lesion under direct sonographic and fluoroscopic visualization. A sonographic image was obtained and placed into the permanent archive for documentation. Radiation Dose FLUOROSCOPIC RADIATION SUMMARY: Plane A, Air Kerma: 521.0 mGy Dose Area Product (DAP): 32369.8 mGy*cm2 Fluoro Time: 23:48 min:sec Radiation dose exceed 5 Gy: No If radiation dose exceeded 5 Gy, was counseling and instructional brochure provided: N/A Anesthesia/sedation Level of anesthesia/sedation: Monitored anesthesia care Anesthesia/sedation administered by: Independent trained observer under attending supervision with continuous monitoring of the patient?s level of consciousness and physiologic status Total intra-service sedation time (minutes): 0 Local anesthesia: 1 % lidocaine Right cholangiogram and biliary drain placement Local anesthesia was administered. A needle was used to access a right intrahepatic duct under fluoroscopic guidance, and cholangiography was performed. A guidewire was passed through the bile ducts and into the small bowel and a biliary drainage catheter was placed. Final contrast injection was performed. Initial cholangiogram findings: Obstructed common bile duct with intrahepatic biliary dilation. Choledocholithiasis. Biliary drain: 8 F [employer] internal external biliary drainage catheter Final cholangiogram findings: Good opacification of bilateral bile ducts. External catheter securement: Non-absorbable suture and adhesive anchoring device Additional biliary intervention Biliary intervention: Attempted to push through biliary stone with Mery balloon but stone was impacted and would not advance through the common bile duct. Additional Details Additional description of procedure: None Equipment details: None Number and Type of Removed Specimens: 0: N/A Estimated blood loss (mL): Less than 10 Number and Type of Removed Specimens: 0: N/A Standardized report: SIR_BiliaryDrainPlacement_ v3 Complications There were no immediate complications and no other complications. The procedure was performed by the: attending radiologist, without an management assistant. The attending radiologist (more content not included)... [facility] Magnesiumon 09-03-2020 Magnesium [Mass/Vol] 2.0 mg/dL Normal 1.7-2.3 [facility] NURSING PROGon 09-03-2020 NURSING PROG HNO ID: [id number] Author: Juliana Woodson RN Service: ? Author Type: Registered Nurse Type: Nursing Progress Note Filed: 09/03/2020 4:05 PM Note Text: 1505 patient arrived in pacu. Patient is alert and awake. Alert and oriented x1, irritable. Denies pain or nausea. Dressing to right flank, clean, dry, and intact. Bili drain draining green drainage. Uncooperative with keeping on simple face mask or nasal cannula. 1543 patient not tolerating nasal cannula or simple face mask, Dr. West notified and at the bedside. 1605 patient tolerating blow by oxygen at 15L, on RA patient sating 92-94%, Dr. West notified and okay for d/c from pacu. [facility] NURSING PROG HNO ID: [id number] Author: Courtney Navarro RN Service: ? Author Type: Registered Nurse Type: Nursing Progress Note Filed: 09/03/2020 10:30 AM Note Text: Nursing Progress Note Patient Name: Jesus Shaver Patient Location: [id number]/[facility]365-1 Daily Note: Assumed care of pt. Pt alert but only oriented to self. Pt denies pain for this RN. Telemetry on. Pt resting in bed, bed low and locked. Call light within reach. Bed alarm on. Offered needs. This note was completed by: Courtney Navarro [facility] NURSING PROG HNO ID: [id number] Author: Jacqueline Ramachandran RN Service: ? Author Type: Registered Nurse Type: Nursing Progress Note Filed: 09/03/2020 2:38 AM Note Text: Nursing Progress Note Patient Name: Jesus Shaver Patient Location: [place] [address]/[facility]365-1 Daily Note: 1929 Assumed care of patient. Safety maintained 2049 Patient is ao to self. Linen and gown soiled. Bed change completed. Assessment as charted. Denies needs. 0020 Assisted patient in using urinal. This note was completed by: Jacqueline Ramachandran [facility] Phosphoruson 09-03-2020 Phosphate [Mass/Vol] 1.7 mg/dL Low 2.7-4.8 [facility] THERAPY NTon 09-03-2020 THERAPY NT HNO ID: [id number] Author: Nia Harris PTA Service: Physical Therapy Author Type: Agent Ticketing Gate Type: Therapy (PT/OT/Speech/Resp) Filed: 09/03/2020 2:32 PM Note Text: -- Attestation signed by Christopher Russell PT at 09/03/2020 2:37 PM I reviewed and agree with the assessment as documented above. SIGNATURE: Christopher Russell, PT DATE: September 03, 2020 TIME: 2:37 PM -- PHYSICAL THERAPY MISSED VISIT SERVICE DATE: 09/03/2020 SERVICE TIME: 1415 to 1415 ROOM: [facility] Attempted Treatment. Patient not seen due to Test/Procedure (pt. off of the floor). SIGNATURE: Nia Harris PTA PATIENT NAME: Jesus Shaver DATE: September 03, 2020 TIME: 2:32 PM Normal [facility] CBC and Differentialon 09-02 Abs Baso 0.00 k/uL Normal <0.11 [facility] Abs [place] 0.57 k/uL Normal <0.87 [facility] Abs Neut 6.39 k/uL Normal 1.45-7.50 [facility] ANC(includeSEG+BAND) 6.39 k/uL Normal [facility] Anisocytosis Ql (Bld) Present Normal [facility] Basophils/100 WBC (Bld) 0.0 % Normal [facility] DTYPE Manual Diff Normal [facility] Eosinophils (Bld) [#/Vol] 0.00 10*3/uL Normal <0.46 [facility] Eosinophils/100 WBC (Bld) 0.0 % Normal [facility] Erythrocyte distribution width (RBC) [Ratio] 19.2 % High 11.5-15.0 [facility] Hematocrit (Bld) [Volume fraction] 29.7 % Low 39.0-51.0 [facility] Hemoglobin (Bld) [Mass/Vol] 10.5 g/dL Low 13.0-17.0 [facility] Lymphocytes (Bld) [#/Vol] 1.23 10*3/uL Normal 1.00-4.00 [facility] Lymphocytes/100 WBC (Bld) 15.0 % Normal [facility] MCH 33.7 pG Normal 26.0-34.0 [facility] MCHC (RBC) [Mass/Vol] 35.4 g/dL Normal 30.5-36.0 [facility] MCV (RBC) [Entitic vol] 95.2 fL Normal 80.0-100.0 [facility] Monocytes/100 WBC (Bld) 7.0 % Normal [facility] Neutrophils/100 WBC (Bld) 78.0 % Normal [facility] Platelet Estimate Platelet estimate decreased Normal [facility] Platelet mean volume (Bld) [Entitic vol] 13.4 fL High 9.0-12.7 [facility] Platelets (Bld) [#/Vol] 87 10*3/uL Low 150-400 [facility] RBC (Bld) [#/Vol] 3.12 10*6/uL Low 4.20-6.00 [facility] Target Cells Moderate Normal [facility] WBC (Bld) [#/Vol] 8.19 10*3/uL Normal 3.70-11.00 [facility] CONSULT PROGon 09-02-2020 CONSULT PROG HNO ID: [id number] Author: Ivonne Robison APRN.RANDELL Service: Gastroenterology Author Type: Nurse Practitioner Type: Consult Progress Note Filed: 09/02/2020 12:03 PM Note Text: CONSULT GI PROGRESS NOTES PATIENT NAME: Jesus Shaver SERVICE DATE: 09/02/2020 SERVICE TIME: 11:36 AM CONSULTING SERVICE: GI in [facility] ? Acute?Jaundice Hep viral panel/EBV negative On Depakote -- 09/01 - s/p ERCP - failed cannulation of the bile duct, one pancreatic stent placed into ventral pancreatic duct -- 08/30 - s/p ERCP - failed cannulation, Stenotic major papilla.. Biliary sphincterotomy. -- transaminates slowly trending down -- Monitor LFTs -- for PTHC drain today Cirrhosis history, biopsy proven Dec 2019. ? Etiology ? ? SUBJECTIVE INTERVAL HPI: Resting in bed in NAD Denies any current nausea, vomiting, or abdominal pain. Afebrile, no evidence of leukocytosis OBJECTIVE BP 95/49 Pulse 49 Temp (Src) 97.3 (Axillary) Resp 18 Ht [ISAAC[ (0.00m) SpO2 98% O2 Therapy: Nasal Cannula, Liters: 2.00 PHYSICAL EXAM: GENERAL: in NAD HEENT: Scleral icterus SKIN: Skin warm, dry, jaundiced NEURO: Alert, conversant, MRDD ABDOMEN: softly distended, non-tender to deep palpation DATA: Diagnostic tests reviewed for today's visit: CBC, Coags, BMP, Mg, Phos Recent Labs 09/02/20 0609/01/20 0750 08/31/20 0555 WBC 8.19 6.65 6.02 HB 10.5* 11.3* 10.4* HCT 29.7* 31.2* 28.7* PLT 87* 89* 87* INR -- 1.0 -- NA 139 139 138 K 4.7 4.0 4.3 CHLOR 107* 107* 108* CO2 24 24 24 BUN 13 15 21 CREAT 0.87 0.90 0.88 GLUC 119* 105* 89 CA 8.7 8.9 8.5 MG 2.1 2.2 2.2 P 2.8 2.0* 3.9 Liver Function, Amylase, AND Lipase Recent Labs 09/02/20 0609/01/20 07508/31/20 0555 TPROT 4.6* Unable to assay. Specimen significantly icteric. 4.8* ALB 2.0* 2.5* 2.4* ALT 98* 108* 94* AST 151* 182* 150* ALKPHOS 462* 504* 419* TBILI 15.8* 17.5* 16.1* SIGNATURE: Ivonne Robison APRN.CNP DATE: September 02, 2020 TIME: 11:36 AM CALL OR TEXT: [phone] Normal [facility] Comp Metabolic Panelon 09-02 Albumin [Mass/Vol] 2.0 g/dL Low 3.9-4.9 [facility] ALP [Catalytic activity/Vol] 462 U/L High 38-113 [facility] ALT [Catalytic activity/Vol] 98 U/L High 10-54 [facility] Anion gap [Moles/Vol] 8 mmol/L Low 9-18 [facility] AST [Catalytic activity/Vol] 151 U/L High 14-40 [facility] Bilirubin [Mass/Vol] 15.8 mg/dL High 0.2-1.3 [facility] Calcium [Mass/Vol] 8.7 mg/dL Normal 8.5-10.2 [facility] Chloride [Moles/Vol] 107 mmol/L High 97-105 [facility] CO2 [Moles/Vol] 24 mmol/L Normal 22-33 [facility] Creatinine [Mass/Vol] 0.87 mg/dL Normal 0.73-1.22 [facility] Comment on above: Result Comment: Resu lt may be falsely decreased due to icteric interference. eGFR- Amer. >60 Normal [facility] eGFR-All Other Races >60 Normal [facility] Comment on above: Result Comment: eGFR (Estimated GFR) Units of measure: mL/min/1.73 meters squared eGFR is derived from the reexpressed MDRD Study equation using the following parameters: serum creatinine, age, gender and race. The creatinine assay has been calibrated to be traceable to IDMS. An eGFR <60 mL/min/1.73m2 for >3 months is consistent with chronic kidney disease. Refer to KDOQI guidelines for clinical interpretation. In patients with unstable renal function, e.g. those with acute kidney injury, the eGFR may not accurately reflect actual GFR. Glucose [Mass/Vol] 119 mg/dL High 74-99 [facility] Potassium [Moles/Vol] 4.7 mmol/L Normal 3.7-5.1 [facility] Protein [Mass/Vol] 4.6 g/dL Low 6.3-8.0 [facility] Sodium [Moles/Vol] 139 mmol/L Normal 136-144 [facility] Urea nitrogen [Mass/Vol] 13 mg/dL Normal 9-24 [facility] Confirm Blood Typeon 021 ABO/RH(D) Negative Normal [facility] Magnesiumon 09-02-2020 Magnesium [Mass/Vol] 2.1 mg/dL Normal 1.7-2.3 [facility] NURSING PROGon 09-02-2020 NURSING PROG HNO ID: [id number] Author: Lubna Vaz RN Service: ? Author Type: Registered Nurse Type: Nursing Progress Note Filed: 09/02/2020 1:58 PM Note Text: Nursing Progress Note Patient Name: Jesus Shaver Patient Location: [facility]/HL--1 Daily NoteThe patient is waiting to go to IR. He remains NPO. Assessment without change. This note was completed by: Audra Vaz [facility] NURSING PROG HNO ID: [id number] Author: Irene Soliman, RN Service: Nursing Author Type: Registered Nurse Type: Nursing Progress Note Filed: 09/02/2020 3:41 AM Note Text: Nursing Progress Note Patient Name: Jesus Shaver Patient [facility]: [facility] Daily Note: 210 Patient assessment completed and documented. Patient is oriented to self, requires frequent reorienting. Patient denies pain at this time. Patient has fluids running per JUN. Q2H turns in place to maintain skin integrity. Pt has tele intact. Pt is in bed with call light in reach and alarm on. 0006 Patient reassessment completed and documented. Prior assessment unchanged. Patient is in bed with call light in reach and alarm on. 0340 Patient has been maintaining a HR between 43-49 bpm. [place] [id number] to update. This note was completed by: Irene Soliman [facility] Phosphoruson 09-02-2020 Phosphate [Mass/Vol] 2.8 mg/dL Normal 2.7-4.8 [facility] Type and Screenon 09-02-2020 ABO/RH(D) Negative [facility] ANES POSTPROC EVALon 021 ANES POSTPROC EVAL HNO ID: [id number] Author: Rosita West MD Service: Anesthesiology Author Type: Anesthesiologist Type: Anesthesia Postprocedure Evaluation Filed: 09/01/2020 4:38 PM Note Text: POST ANESTHESIA EVALUATION NOTE : 1955 Procedure Summary Date: 09/01/20 Room / Location: ORA / OR Anesthesia Start: 1356 Anesthesia Stop: 1608 Procedure: ERCP W/ PLACEMENT ENDOSCOPIC STENT, BILIARY OR PANCREATIC DUCT, INCLUDING PRE- AND POST-DILATION AND GUIDE WIRE PASSAGE, WHEN PERFORMED, INCLUDING SPHINCTEROTOMY, WHEN PERFORMED, EACH STENT (N/A Abdomen) Diagnosis: Choledocholithiasis (Choledocholithiasis [K80.50]) Surgeons: Adam Caal MD Responsible Provider: Rosita West MD Anesthesia Type: general ASA Status: 3 Anesthesia Type: general Last vitals Vitals Value Taken Time BP 112/56 09/01/20 1631 Temp 36.4 ?C (97.5 ?F) 09/01/20 1557 Pulse 58 09/01/20 1637 Resp 18 09/01/20 1637 SpO2 98 % 09/01/20 1637 Vitals shown include unvalidated device data. Post Anesthesia Patient Status Patient Evaluation: PACU. PACU/ICU Patient Condition: stable. Neurological Status: aware and responsive. Pulmonary Status: breathing comfortably on room air Airway Control: returned to baseline unsupported. Cardiovascular Status: stable. Pain Management: clinically adequate Postoperative Hydration: acceptable. Intraoperative Events: no significant anesthesia events Post Operative Nausea/Vomiting Status: no significant post operative nausea or vomiting Anesthetic Observations: Recommendation: continue current plan of care. No complications documented. SIGNATURE: Rosita West MD PATIENT NAME: Jesus Shaver DATE: September 01, 2020 TIME: 4:38 PM CSN: [id number] [facility] ANES PRE-OPon 09-01-2020 ANES PRE-OP HNO ID: [id number] Author: Tayler Tamez MD Service: Anesthesiology Author Type: Anesthesiologist Type: Anesthesia Preprocedure Evaluation Filed: 09/01/2020 1:58 PM Note Text: ANESTHESIOLOGY DAY OF SURGERY NOTE : 1955 Procedure(s) (LRB): ERCP WITH SPHINCTEROTOMY (N/A) Surgeon(s): Adam Caal MD There is no height or weight on file to calculate BMI. Most recent hematocrit and potassium results: Hematocrit 31.2 09/01/2020 Potassium 4.0 09/01/2020 Relevant Problems NEURO-PSYCH (+) Seizure disorder (HCC) I - PHYSICAL EVALUATION AIRWAY Patient intubated: No. Tracheostomy tube not present Mallampati: II. TM distance: >3 FB. Neck ROM: limited extension. Mouth opening: adequate. Short neck: no. Thick neck: no DENTAL Dental findings: missing tooth/teeth, broken tooth and poor dentition. Additional exam findings: no II - ANESTHESIA PLAN ASA Score: 3 Anesthetic Plan: general The patient is not a current smoker. NPO Status: adequate Administration of chronic beta norma medication not planned. Monitoring plan: standard ASA. Patient / Surrogate agrees to blood products: blood products not planned DNR status not reviewed with patient and/or family prior to surgery. Significant changes in the patient condition since the History and Physical, not otherwise documented in primary service progress note: no. Potential Anesthesia issues that may suggest increased risk of complications or contraindication to planned procedure: potential difficult intubation. Vitals Value Taken Time BP 107/57 09/01/20 1236 Pulse 46 09/01/20 1236 Resp 16 09/01/20 1236 Temp 36.1 ?C (97 ?F) 09/01/20 1236 SpO2 96 % 09/01/20 1236 Facility-Administered Medications as of 09/01/2020 Medication Dose Route Frequency - [COMPLETED] NaCl 0.9% 1,000 mL iv bolus 1,000 mL INTRAVENOUS ONCE - [MAR Hold due to Transfer] dextrose 5% in NaCl 0.45% with 20 mEq/L KCl iv infusion 80 mL/hr INTRAVENOUS CONTINUOUS - [COMPLETED] potassium chloride iv piggyback 20 mEq/100 mL 20 mEq INTRAVENOUS q 1 H - [COMPLETED] potassium chloride 40 mEq oral powder (KLOR-CON) 40 mEq ORAL ONCE - [COMPLETED] phytonadione (vitamin K1) 10 mg injection (VITAMIN K) 10 mg SUBCUTANEOUS DAILY - [MAR Hold due to Transfer] divalproex DR 1,500 mg tab(s) (DEPAKOTE) 1,500 mg ORAL AT BEDTIME - [MAR Hold due to Transfer] zonisamide 100 mg cap(s) (ZONEGRAN) 100 mg ORAL BID - [MAR Hold due to Transfer] tamsulosin 0.4 mg cap(s) (FLOMAX) 0.4 mg ORAL AT BEDTIME - [MAR Hold due to Transfer] senna 8.6 mg tab(s) (SENOKOT) 8.6 mg ORAL BID - [MAR Hold due to Transfer] polyethylene glycol 3350 17 g packet (MIRALAX, GLYCOLAX) 17 g ORAL DAILY - [MAR Hold due to Transfer] lamoTRIgine 50 mg tab(s) (LaMICtal) 50 mg ORAL BID - [MAR Hold due to Transfer] piperacillin-tazobactam iv piggyback 3.375 g in dextrose (iso-osmotic) 50 mL (ZOSYN) 3.375 g INTRAVENOUS q 6 H - [] iv contrast (radiology procedure) INTRAVENOUS DIRECTED PRN - [COMPLETED] piperacillin-tazobactam iv piggyback 3.375 g in dextrose (iso-osmotic) 50 mL (ZOSYN) 3.375 g INTRAVENOUS ONCE Outpatient Medications as of 09/01/2020 Medication Sig - multivitamin-ferrous fumarate-folic acid (CERTAVITE-ANTIOXIDANT) Take 1 tablet by mouth once daily. - ngbzang-odzmraojt-zcrecbp D3 (OYSTER SHELL CALCIUM-VITAMIN D) 500 mg(1,250mg) -200 unit per tablet TAKE (1) TABLET BY MOUTH TWICE A DAY. - polyethylene glycol 3350 (GAVILAX) 17 gram packet Take 1 Packet by mouth once daily. - divalproex DR (DEPAKOTE) 500 mg EC tablet Take 3 tablets by mouth daily at bedtime. at bedtime - lamoTRIgine ER (LAMICTAL XR) 100 mg 24 hr tablet Take 1 tablet by mouth once daily. - senna (SENNA) 8.6 mg tab Take 1 tablet by mouth twice daily. - pyridoxine, vitamin B6, (VITAMIN B-6) 100 mg tablet Take 1 tablet by mouth once daily. - zonisamide (ZONEGRAN) 100 mg capsule Take 1 capsule by mouth twice daily. - acetaminophen (TYLENOL) 650 mg suppository 1 Suppository by RECTAL route every 4 hours as needed. - acetaminophen (TYLENOL) 325 mg tablet Take 2 tablets by mouth every 6 hours as needed for Pain. - bisacodyl (DULCOLAX) 10 mg supp 1 Suppository by RECTAL route once daily as needed. - magnesium hydroxide (MILK OF MAGNESIA) 400 mg/5 mL suspension Take 15 mL by mouth once daily as needed for Constipation. Notify physician if no BM in 4 days - tamsulosin ER (FLOMAX) 0.4 mg Take 1 capsule by mouth daily at bedtime. - COMPOUNDED PRESCRIPTION Wheelchair with seat belt - COMPOUNDED PRESCRIPTION [place] Lift I have interviewed and examined the patient. I have reviewed the medical record and/or the pre-anesthesia evaluation, pertinent labs, and test results. This contains updated information obtained within 48 hours of Surgery/Procedure. SIGNATURE: Tayler Tamez MD PATIENT NAME: Jesus Shaver DATE: September 01, 2020 TIME: 1:57 PM CSN: [id number] [facility] CASE MANAGEMon 09-01-2020 CASE MANAGEM HNO ID: [id number] Author: EZE Del [place] Service: Social Work Author Type: Supervisor Public Health Nursing Type: Care Mgt Progress Note Filed: 09/01/2020 11:05 AM Note Text: CARE MANAGEMENT PROGRESS NOTE SERVICE DATE: 09/01/2020 SERVICE TIME: 11:02 AM LOS: 4 days SW following for support and d/c planning back to [facility] at hospital d/c. SIGNATURE: EZE Del [place] PATIENT NAME: Jesus Shaver DATE: September 01, 2020 TIME: 11:02 AM PAGER/CONTACT #: [phone] [facility] CBC and Differentialon 09-01 Abs Baso 0.13 k/uL High <0.11 [facility] Abs [place] 0.60 k/uL Normal <0.87 [facility] Abs Neut 3.26 k/uL Normal 1.45-7.50 [facility] ANC(includeSEG+BAND) 3.26 k/uL Normal [facility] Basophils/100 WBC (Bld) 2.0 % Normal [facility] DTYPE Manual Diff Normal [facility] Eosinophils (Bld) [#/Vol] 0.00 10*3/uL Normal <0.46 [facility] Eosinophils/100 WBC (Bld) 0.0 % Normal [facility] Erythrocyte distribution width (RBC) [Ratio] 18.5 % High 11.5-15.0 [facility] Hematocrit (Bld) [Volume fraction] 31.2 % Low 39.0-51.0 [facility] Hemoglobin (Bld) [Mass/Vol] 11.3 g/dL Low 13.0-17.0 [facility] Left Shift Present Normal [facility] Lymphocytes (Bld) [#/Vol] 2.53 10*3/uL Normal 1.00-4.00 [facility] Lymphocytes/100 WBC (Bld) 38.0 % Normal [facility] MCH 33.1 pG Normal 26.0-34.0 [facility] MCHC (RBC) [Mass/Vol] 36.2 g/dL High 30.5-36.0 [facility] MCV (RBC) [Entitic vol] 91.5 fL Normal 80.0-100.0 [facility] Metamyelocytes/100 WBC (Bld) 2.0 % Normal [facility] Monocytes/100 WBC (Bld) 9.0 % Normal [facility] Neutrophils/100 WBC (Bld) 49.0 % Normal [facility] Platelet Estimate Platelet estimate decreased Normal [facility] Platelet mean volume (Bld) [Entitic vol] 12.5 fL Normal 9.0-12.7 [facility] Platelets (Bld) [#/Vol] 89 10*3/uL Low 150-400 [facility] Comment on above: Result Comment: Samp le checked for a clot. RBC (Bld) [#/Vol] 3.41 10*6/uL Low 4.20-6.00 [facility] Target Cells Many Normal [facility] WBC (Bld) [#/Vol] 6.65 10*3/uL Normal 3.70-11.00 [facility] Comp Metabolic Panelon 09-01 Albumin [Mass/Vol] 2.5 g/dL Low 3.9-4.9 [facility] ALP [Catalytic activity/Vol] 504 U/L High 38-113 [facility] ALT [Catalytic activity/Vol] 108 U/L High 10-54 [facility] Anion gap [Moles/Vol] 8 mmol/L Low 9-18 [facility] AST [Catalytic activity/Vol] 182 U/L High 14-40 [facility] Bilirubin [Mass/Vol] 17.5 mg/dL High 0.2-1.3 [facility] Calcium [Mass/Vol] 8.9 mg/dL Normal 8.5-10.2 [facility] Chloride [Moles/Vol] 107 mmol/L High 97-105 [facility] CO2 [Moles/Vol] 24 mmol/L Normal 22-33 [facility] Creatinine [Mass/Vol] 0.90 mg/dL Normal 0.73-1.22 [facility] Comment on above: Result Comment: Resu lt may be falsely decreased due to icteric interference. eGFR- Amer. >60 Normal [facility] eGFR-All Other Races >60 Normal [facility] Comment on above: Result Comment: eGFR (Estimated GFR) Units of measure: mL/min/1.73 meters squared eGFR is derived from the reexpressed MDRD Study equation using the following parameters: serum creatinine, age, gender and race. The creatinine assay has been calibrated to be traceable to IDMS. An eGFR <60 mL/min/1.73m2 for >3 months is consistent with chronic kidney disease. Refer to KDOQI guidelines for clinical interpretation. In patients with unstable renal function, e.g. those with acute kidney injury, the eGFR may not accurately reflect actual GFR. Glucose [Mass/Vol] 105 mg/dL High 74-99 [facility] Potassium [Moles/Vol] 4.0 mmol/L Normal 3.7-5.1 [facility] Protein, Total Unable to assay. Spe cimen significantly icteric. Normal 6.3-8.0 [facility] Sodium [Moles/Vol] 139 mmol/L Normal 136-144 [facility] Urea nitrogen [Mass/Vol] 15 mg/dL Normal 9-24 [facility] HISTORY PHYSICALon HISTORY PHYSICAL HNO ID: [id number] Author: Adam Caal MD Service: Gastroenterology Author Type: Physician Type: HANDP Filed: 09/01/2020 1:55 PM Note Text: UPDATED HISTORY AND PHYSICAL EXAMINATION SERVICE DATE: 09/01/2020 SERVICE TIME: 1:41 PM PHYSICAL EXAM MUST BE COMPLETED ON ADMISSION The History and Physical (completed in the past 30 days) has been reviewed and the patient has been examined. The contents accurately reflect the patient's condition with the following additions or revisions since the HANDP was completed. Examination indicates no changes. This HANDP can be found in the Electronic Medical Record dated 08-28-20. SIGNATURE: Adam Caal MD PATIENT NAME: Jesus Shaver DATE: September 01, 2020 TIME: 1:41 PM NOTE>>>I CALLED [facility] FOR CONSENT>>NO RESPONSE. OBTAINED TWO DOCTOR CONSENT. Normal [facility] Magnesiumon 09-01-2020 Magnesium [Mass/Vol] 2.2 mg/dL Normal 1.7-2.3 [facility] NURSING PROGon 09-01-2020 NURSING PROG HNO ID: [id number] Author: Lester Salazar RN Service: ? Author Type: Registered Nurse Type: Nursing Progress Note Filed: 09/01/2020 4:05 PM Note Text: 1557 Patient to pacu 44 arousable to verbal stimuli, respirations even and unlabored, NSR on monitor, fluids infusing without difficulty, vss, pt. Resting comfortably, no c/o pain, n/v at this time, pt. Is jaundice as baseline Normal [facility] NURSING PROG HNO ID: [id number] Author: Elzbieta Gonsales RN Service: ? Author Type: Registered Nurse Type: Nursing Progress Note Filed: 09/01/2020 7:23 PM Note Text: Nursing Progress Note Patient Name: Jesus Shaver Patient Location: [place] [address]/[facility]-1 Daily Note: 0700 assumed care of pt, resting comfortably with no needs, safety checks in place, possessions in reach, bed alarm on and functioning. 0830 assessment as charted, VSS on RA, BP running low, pt asymptomatic, awake and answering questions appropriately. Pt aaox1, disoriented to time and place. IVF infusing per mar, site cdi. Pt offers no complaints, pt very jaundiced still, abdomen tender/ distended, +BM. Safety checks in place, possessions in reach, bed alarm on and functioning. 0831 paged hosp re pt BP's running low. 0835 received orders for 1L NS bolus, initiated at bedside. 1215 pt left unit for ERCP, safety checks in place. 1715 pt returned to unit from ERCP. orders released, tele put on pt, safety checks in place, possessions in reach. Passed bedside swallow eval. This note was completed by: Elzbieta Gonsales [facility] NURSING PROG HNO ID: [id number] Author: Irene Soliman RN Service: Nursing Author Type: Registered Nurse Type: Nursing Progress Note Filed: 09/01/2020 12:43 AM Note Text: Nursing Progress Note Patient Name: Jesus Shaver Patient Location: [facility] Daily Note: 5 Patient assessment completed and documented. Patient is oriented to self, requires frequent reorienting. Patient denies pain at this time. Patient has fluids running per JUN. Q2H turns in place to maintain skin integrity. Pt has tele intact. Patient is in bed with call light in reach and alarm on. 0043 Patient reassessment completed and documented. Prior assessment unchanged. Patient is in bed with call light in reach and alarm on. This note was completed by: Irene Soliman [facility] Phosphoruson 09-01-2020 Phosphate [Mass/Vol] 2.0 mg/dL Low 2.7-4.8 [facility] Protimeon 09-01-2020 PT INR 1.0 Normal 0.9-1.3 [facility] Comment on above: Result Comment: Rocio min K Antagonist (VKA) Therapeutic Range: INR 2 to 3 (Target INR of 2.5) Note: For patients treated with VKA drugs, such as warfarin, the [place] 2012 Guideline recommends a therapeutic INR range of 2 to 3 (target INR of 2.5). This recommendation includes high-risk patients with antiphospholipid syndrome with previous arterial or venous thromboembolism, current-generation mechanical or bioprosthetic aortic heart valve replacement. Note: Patients with mechanical aortic valve replacement and additional risk factors for thromboembolic events (atrial fibrillation, previous thromboembolism, LV dysfunction, hypercoagulable conditions) or an older generation mechanical AVR (i.e., ball in-Cage) or any mechanical MVR should have a INR therapeutic range of 2.5 to 3.5 (target INR of 3). Elvi BAJWA, et al. Chest 2012, 141:7S-47S Jermaine RA, et al. JAC 2017, 70: 252-289 PT Sec 11.2 sec Normal 9.7-13.0 [facility] XR ERCP READ ONLYon 09-02-19 21 XR ERCP READ ONLY * * *Final Report* * * DATE OF EXAM: Sep 01 2020 3:58PM HCR [id number] - XR ERCP READ ONLY / PROCEDURE REASON: PAIN * * * * Physician Interpretation * * * * RESULT: INTRAOPERATIVE FLUOROSCOPY HISTORY: PAIN COMPARISON: None TECHNIQUE: Fluoroscopic imaging was provided for procedure localization. Fluoroscopic Radiation Summary: Plane A, Air Kerma: 351.3 mGy Dose Area Product (DAP): 0.0 mGy*cm^2 Fluoro time: 9:13 min:sec RESULT: See impression IMPRESSION: Fluoroscopy was used in the operating room for procedural guidance during ERCP and pancreatic duct stent placement.. 4 portable fluoroscopic spot films were obtained. Study was performed by Dr. ADAM CAAL. Recommend correlation with real-time interoperative findings and procedure note. Transcribed Using Voice Recognition Transcribe Date/Time: Sep 01 2020 6:17P Dictated by: APRYL ZARCO MD This examination was interpreted and the report reviewed and electronically signed by: APRYL ZARCO MD on Sep 01 2020 6:18PM EST [id number] Normal [facility] ANES POSTPROC EVALon 021 ANES POSTPROC EVAL HNO ID: [id number] Author: Rosita West MD Service: Anesthesiology Author Type: Anesthesiologist Type: Anesthesia Postprocedure Evaluation Filed: 08/31/2020 12:25 PM Note Text: POST ANESTHESIA EVALUATION NOTE : 1955 Procedure Summary Date: 08/30/20 Room / Location: ORA / [facility] OR Anesthesia Start: 1413 Anesthesia Stop: 1654 Procedure: ERCP W/ PLACEMENT ENDOSCOPIC STENT, BILIARY OR PANCREATIC DUCT, INCLUDING PRE- AND POST-DILATION AND GUIDE WIRE PASSAGE, WHEN PERFORMED, INCLUDING SPHINCTEROTOMY, WHEN PERFORMED, EACH STENT (N/A ) Diagnosis: Jaundice (Jaundice [R17]) Surgeons: Lázaro Bradley MD Responsible Provider: Rosita West MD Anesthesia Type: general ASA Status: 3 Anesthesia Type: general Last vitals Vitals Value Taken Time BP 108/71 08/31/20924 Temp 36.9 ?C (98.4 ?F) 08/31/20924 Pulse 78 08/31/20924 Resp 16 08/31/20924 SpO2 99 % 08/31/20924 Post Anesthesia Patient Status Patient Evaluation: PACU. PACU/ICU Patient Condition: stable. Neurological Status: aware and responsive. Pulmonary Status: breathing comfortably on room air Airway Control: returned to baseline unsupported. Cardiovascular Status: stable. Pain Management: clinically adequate Postoperative Hydration: acceptable. Intraoperative Events: no significant anesthesia events Post Operative Nausea/Vomiting Status: no significant post operative nausea or vomiting Anesthetic Observations: Recommendation: continue current plan of care. No complications documented. SIGNATURE: Rosita West MD PATIENT NAME: Jesus Shaver DATE: August 31, 2020 TIME: 12:24 PM CSN: [id number] Normal [facility] CBC and Differentialon 08-31 Abs Baso <0.03 Normal <0.11 [facility] Abs Eosin <0.03 Normal <0.46 [facility] Abs [place] 0.43 k/uL Normal <0.87 [facility] Abs Neut 4.46 k/uL Normal 1.45-7.50 [facility] Absolute nRBC <0.01 Normal <0.01 [facility] Basophils/100 WBC (Bld) 0.2 % Normal [facility] DTYPE Auto Diff Normal [facility] Eosinophils/100 WBC (Bld) 0.0 % Normal [facility] Erythrocyte distribution width (RBC) [Ratio] 18.0 % High 11.5-15.0 [facility] Hematocrit (Bld) [Volume fraction] 28.7 % Low 39.0-51.0 [facility] Hemoglobin (Bld) [Mass/Vol] 10.4 g/dL Low 13.0-17.0 [facility] Lymphocytes (Bld) [#/Vol] 1.12 10*3/uL Normal 1.00-4.00 [facility] Lymphocytes/100 WBC (Bld) 18.6 % Normal [facility] MCH 34.1 pG High 26.0-34.0 [facility] MCHC (RBC) [Mass/Vol] 36.2 g/dL High 30.5-36.0 [facility] MCV (RBC) [Entitic vol] 94.1 fL Normal 80.0-100.0 [facility] Monocytes/100 WBC (Bld) 7.1 % Normal [facility] Neutrophils/100 WBC (Bld) 74.1 % Normal [facility] NRBCs 0.0 /100 WBC Normal 0 [facility] Platelet mean volume (Bld) [Entitic vol] 13.0 fL High 9.0-12.7 [facility] Platelets (Bld) [#/Vol] 87 10*3/uL Low 150-400 [facility] Comment on above: Result Comment: [facility] RBC (Bld) [#/Vol] 3.05 10*6/uL Low 4.20-6.00 [facility] WBC (Bld) [#/Vol] 6.02 10*3/uL Normal 3.70-11.00 [facility] CONSULT PROGon 08-31-2020 CONSULT PROG HNO ID: [id number] Author: Lisseth Delaney APRN.RANDELL Service: Gastroenterology Author Type: Nurse Practitioner Type: Consult Progress Note Filed: 08/31/2020 12:23 PM Note Text: CONSULT GI PROGRESS NOTES PATIENT NAME: Jesus Shaver SERVICE DATE: 08/31/2020 SERVICE TIME: 10:27 AM CONSULTING SERVICE: GI DISCUSSED WITH: Adam Caal MD ASSESSMENT AND PLAN MRDD living in a senior care Acute Jaundice -- 08/30 - s/p ERCP - Stenotic major papilla. Pancreatic stent placed in ventral pancreatic duct. Biliary sphincterotomy. -- slight rise in LFTs -- Negative Hep serologies -- Monitor LFTs -- Ok for clear liquid diet today -- repeat ERCP tomorrow Cirrhosis history, biopsy proven Dec 2019. ? etiology SUBJECTIVE INTERVAL HPI: Resting in bed in NAD Denies any current nausea, vomiting, or abdominal pain. OBJECTIVE BP 108/71 Pulse 78 Temp (Src) 98.4 (Oral) Resp 16 Ht [ISAAC[ (0.00m) SpO2 99% O2 Therapy: Room Air PHYSICAL EXAM: GENERAL: in NAD HEENT: Scleral icterus SKIN: Skin warm, dry, jaundice NEURO: Alert, MRDD, conversant ABDOMEN: Soft, non-distended, no grimace to palpation DATA: Diagnostic tests reviewed for today's visit: CBC, Coags, BMP, Mg, Phos Recent Labs 08/31/20 0555 08/30/20 0638 08/29/20 0508/28/20182708/28/201827 WBC 6.02 7.81 8.94 < > 7.93 HB 10.4* 10.3* 11.5* < > 11.8* HCT 28.7* 28.3* 31.3* < > 32.7* PLT 87* 84* 79* < > 79* INR -- -- -- -- 1.4* NA 138 137 137 135* < > 140 K 4.3 3.1* 3.1* 3.4* < > 3.4* CHLOR 108* 103 104 102 < > 104 CO2 24 23 23 22 < > 27 BUN 21 17 17 17 < > 19 CREAT 0.88 0.92 0.92 0.82 < > 0.88 GLUC 89 92 92 76 < > 82 CA 8.5 8.5 8.6 8.9 < > 9.3 MG 2.2 2.0 -- -- -- P 3.9 3.1 -- -- -- < > = values in this interval not displayed. Liver Function, Amylase, AND Lipase Recent Labs 08/31/20 0508/30/20 0608/29/20522 TPROT 4.8* 4.8* 4.9* 5.3* ALB 2.4* 2.3* 2.3* 2.6* ALT 94* 88* 89* 95* AST 150* 130* 131* 133* ALKPHOS 419* 371* 377* 344* TBILI 16.1* 15.7* 15.6* 14.8* SIGNATURE: Lisseth Delaney APRN.[employer]BI[employer] APPLICATION DEVELOPER OFFICE: [phone] DATE: August 31, 2020 TIME: 10:27 AM Normal [facility] Comp Metabolic Panelon 08-31 Albumin [Mass/Vol] 2.4 g/dL Low 3.9-4.9 [facility] ALP [Catalytic activity/Vol] 419 U/L High 38-113 [facility] ALT [Catalytic activity/Vol] 94 U/L High 10-54 [facility] Anion gap [Moles/Vol] 6 mmol/L Low 9-18 [facility] AST [Catalytic activity/Vol] 150 U/L High 14-40 [facility] Bilirubin [Mass/Vol] 16.1 mg/dL High 0.2-1.3 [facility] Calcium [Mass/Vol] 8.5 mg/dL Normal 8.5-10.2 [facility] Chloride [Moles/Vol] 108 mmol/L High 97-105 [facility] CO2 [Moles/Vol] 24 mmol/L Normal 22-33 [facility] Creatinine [Mass/Vol] 0.88 mg/dL Normal 0.73-1.22 [facility] Comment on above: Result Comment: Resu lt may be falsely decreased due to icteric interference. eGFR- Amer. >60 Normal [facility] eGFR-All Other Races >60 Normal [facility] Comment on above: Result Comment: eGFR (Estimated GFR) Units of measure: mL/min/1.73 meters squared eGFR is derived from the reexpressed MDRD Study equation using the following parameters: serum creatinine, age, gender and race. The creatinine assay has been calibrated to be traceable to IDMS. An eGFR <60 mL/min/1.73m2 for >3 months is consistent with chronic kidney disease. Refer to KDOQI guidelines for clinical interpretation. In patients with unstable renal function, e.g. those with acute kidney injury, the eGFR may not accurately reflect actual GFR. Glucose [Mass/Vol] 89 mg/dL Normal 74-99 [facility] Potassium [Moles/Vol] 4.3 mmol/L Normal 3.7-5.1 [facility] Protein [Mass/Vol] 4.8 g/dL Low 6.3-8.0 [facility] Sodium [Moles/Vol] 138 mmol/L Normal 136-144 [facility] Urea nitrogen [Mass/Vol] 21 mg/dL Normal 9-24 [facility] Magnesiumon 08-31-2020 Magnesium [Mass/Vol] 2.2 mg/dL Normal 1.7-2.3 [facility] NURSING PROGon 08-31-2020 NURSING PROG HNO ID: [id number] Author: Elzbieta Gonsales RN Service: ? Author Type: Registered Nurse Type: Nursing Progress Note Filed: 08/31/2020 10:30 AM Note Text: Nursing Progress Note Patient Name: Jesus Shaver Patient Location: /[facility] Daily Note: 0700 assumed care of pt, resting comfortably with no needs, safety checks in place, possessions in reach, bed alarm on and functioning. 0930 assessment as charted, VSS on RA, pt is aaox1, disoriented to time and place. Pt calm and resting comfortably denies pain, cp, sob, aceves, n/v or dizziness. Abdomen tender and distended, BS present, Npo maintained. Skin intact, up with two, ad adin. Safety checks in place, possessions in reach, bed alarm on and functioning. This note was completed by: Elzbieta Gonsales [facility] NURSING PROG HNO ID: [id number] Author: Wily Ward RN Service: ? Author Type: Registered Nurse Type: Nursing Progress Note Filed: 08/31/2020 8:13 AM Note Text: Nursing Progress Note Patient Name: Jesus Shaver Patient Location: / Daily Note: 2320: Pt in bed resting, assessed per flow sheet. Pt is jaundiced. Call light and belongings within reach and bed alarm on. Pt is MRDD and oriented to self only. 0000: Pt is asleep in bed, call light and belongings within reach and bed alarm on. This note was completed by: Wily Ward [facility] Phosphoruson 08-31-2020 Phosphate [Mass/Vol] 3.9 mg/dL Normal 2.7-4.8 [facility] THERAPY NTon 08-31-2020 THERAPY NT HNO ID: [id number] Author: Elena Rider OT/L Service: Occupational Therapy Author Type: Occupational Therapist Type: Therapy (PT/OT/Speech/Resp) Filed: 08/31/2020 9:25 AM Note Text: Occupational Therapy Evaluation SERVICE DATE: 08/31/2020 SERVICE TIME: 854 to 909 ROOM: [place] [address] Recommended Discharge Disposition: Subacute/SNF Recommended Discharge Disposition Comments: Recommend trial SNF vs return to senior care pending ability to increase level of care and assistance Recommended Discharge Disposition Due to: decline in functional status requiring daily skilled care Anticipated Discharge Needs: Physical Assist at Home Physical Assist at Home for: Transfers;Ambulation;Clean ing;Laundry;Meals;Medicati on Management;Stairs;Safety;S elf Care;Transportation;Wheelc hair Mobility;Shopping OT 6 Clicks Score: 10 Precautions/Activity Restrictions: Fall Risk;Bed/Chair Alarm;Seizure Current Hospital Course: Pt is a 65yom adm with acute obstructive jaundice - scheduled for ERCP today. Reason for Hospital Admission: jaundice Relevant Past Medical History: MRDD, seizures Response to Therapy Interventions: Cognitive deficits, Low activity tolerance, Limited participation Continue skilled needs due to: Functional impairment, Safety concerns Occupational Therapy Problem List: Cognitive Deficit;Education Deficit;Safety Deficits;Impaired Self Care;Decreased Activity Tolerance;Decreased Range Of Motion;Decreased Strength;Functional Mobility Impairment;Balance Impaired Cognition/Communication Deficits Communication Deficits: (Pt responds with yes/no answers ) Orientation Deficits: Not oriented to Time, Not oriented to Situation Responsiveness: Awake, Drowsy Follows Commands: 1-step Commands, Cueing Needed Cueing to Follow Commands: Moderate Treatment Interventions: Education;Self Care / Home Management;Energy Conservation Training;Functional Mobility Training;Balance Training Home Environment Patient Lives With: Facility Care (pt lives in senior care) Assistance Available: 24 Hour Tub/Shower Type: has assist Laundry: has assist Equipment Owned: Wheeled Walker;Wheelchair Prior Functional Level: Required Assistance Assistance Required With: Transfers;Ambulation;Clean ing;Laundry;Meals;Medicati on Management;Stairs;Safety;S elf Care;Shopping;Wheelchair Mobility;Transportation Prior Functional Level Comments: pt is poor historian - from previous progress notes - appears that pt uses walker or w/c with assist of staff. Pt has 24/ assist for all mobility. Per chart - pt has charlotte lift as well. Patient Report: RN devin'juan therapy session. Pt requires increased time for processing, follows ~75% simple verbal commands CURRENT FUNCTIONAL STATUS: Most recent performance Current Activities of Daily Living Assist Level Additional Information Feeding Minimal Assistance Grooming Moderate Assistance Bathing Upper Body Maximal Assistance Bathing Lower Body Total Assistance Dressing Upper Body Maximal Assistance Dressing Lower Body Total Assistance Toileting Total Assistance Instrumental Activities of Daily Living Assist Level Additional Information Meal/Beverage Prep Cleaning Laundry Medication Management with Strategies Functional Mobility Assist Level Additional Information Rolling Supine to Sit Maximal Assistance;Additional Information Pt resisting - states he does not want to sit up. Unable to be redirected. Sit to Supine Maximal Assistance Scooting Sit to Stand Stand to Sit Bed to Chair Toilet/Commode Shower Functional Mobility Blank marquez indicate activity not attempted Balance: Static Sitting;Dynamic Sitting Static Sitting Balance: Fair Patient able to maintain balance with handhold support, may require occasional minimal assistance Dynamic Sitting Balance: Poor Patient unable to accept challenge or move without loss of balance Learning/Educational Needs: Discharge Plan;Functional Activities/Mobility;Plan of Care;Safety;Self Care Goals for Plan of Care: Patient /Caregiver Goals: (None stated) Goals: Patient will demonstrate progress to optimize self-care activities, cognitive and/or coping to maximize function upon discharge. Feeding with: Set Up Grooming with: Set Up Upper Body Dressing with: Set Up Chair Transfer with: Minimal Assistance Rehab Potential: Fair Patient will be discontinued from Occupational Therapy when no further skilled needs are identified in this setting. PLAN: Treatment Frequency (times per week): 3 Current admission Plan of Care developed with: Patient TREATMENT INTERVENTIONS: Therapy Diagnosis: Reduced mobility-other;Decreased activities of daily living (ADL);Muscle Weakness (generalized);Unsteadiness on feet;General symptoms and signs-other Interventions Provided: Evaluation $ Evaluation-Low (38297) Billed Units: 1 unit Training AND education provided in: Bed mobility, Benefits of in-hospital (more content not included)... [facility] ANES PRE-OPon 08-30-2020 ANES PRE-OP HNO ID: [id number] Author: Rosita West MD Service: Anesthesiology Author Type: Anesthesiologist Type: Anesthesia Preprocedure Evaluation Filed: 08/30/2020 1:48 PM Note Text: ANESTHESIOLOGY DAY OF SURGERY NOTE : 1955 Procedure(s) (LRB): ERCP WITH REMOVAL STONE (N/A) Surgeon(s): Lázaro Bradley MD There is no height or weight on file to calculate BMI. Most recent hematocrit and potassium results: Hematocrit 28.3 08/30/2020 Potassium 3.1 08/30/2020 Relevant Problems NEURO-PSYCH (+) Seizure disorder (HCC) PAST MEDICAL HISTORY Diagnosis Date - Acute cholecystitis - Bilateral leg weakness - Mild mental retardation - Seizure disorder (HCC) I - PHYSICAL EVALUATION AIRWAY Patient intubated: No. Tracheostomy tube not present Mallampati: II. TM distance: >3 FB. Neck ROM: limited extension. Mouth opening: adequate. Short neck: no. Thick neck: no DENTAL Dental findings: teeth intact, poor dentition, missing tooth/teeth and broken tooth. Additional exam findings: no II - ANESTHESIA PLAN ASA Score: 3 Anesthetic Plan: general Airway type: ETT The patient is not a current smoker. NPO Status: adequate Monitoring plan: standard ASA. Postoperative analgesic plan: multimodal analgesia. Anesthetic Risks, Benefits, Alternatives, Personnel Discussed. Consent obtained from: patient.Patient / Surrogate agrees to blood products: Yes Potential Anesthesia issues that may suggest increased risk of complications or contraindication to planned procedure: none. Vitals Value Taken Time BP 132/60 08/30/20 1320 Pulse 56 08/30/20 1320 Resp 18 08/30/20 1320 Temp 36.9 ?C (98.4 ?F) 08/30/20 1320 SpO2 98 % 08/30/20 1320 Facility-Administered Medications as of 08/30/2020 Medication Dose Route Frequency - [COMPLETED] potassium chloride iv piggyback 20 mEq/100 mL 20 mEq INTRAVENOUS q 1 H - [COMPLETED] potassium chloride 40 mEq oral powder (KLOR-CON) 40 mEq ORAL ONCE - [MAR Hold due to Transfer] phytonadione (vitamin K1) 10 mg injection (VITAMIN K) 10 mg SUBCUTANEOUS DAILY - [MAR Hold due to Transfer] NaCl 0.9% iv infusion 75 mL/hr INTRAVENOUS CONTINUOUS - [MAR Hold due to Transfer] divalproex DR 1,500 mg tab(s) (DEPAKOTE) 1,500 mg ORAL AT BEDTIME - [MAR Hold due to Transfer] zonisamide 100 mg cap(s) (ZONEGRAN) 100 mg ORAL BID - [MAR Hold due to Transfer] tamsulosin 0.4 mg cap(s) (FLOMAX) 0.4 mg ORAL AT BEDTIME - [MAR Hold due to Transfer] senna 8.6 mg tab(s) (SENOKOT) 8.6 mg ORAL BID - [MAR Hold due to Transfer] polyethylene glycol 3350 17 g packet (MIRALAX, GLYCOLAX) 17 g ORAL DAILY - [MAR Hold due to Transfer] lamoTRIgine 50 mg tab(s) (LaMICtal) 50 mg ORAL BID - [MAR Hold due to Transfer] piperacillin-tazobactam iv piggyback 3.375 g in dextrose (iso-osmotic) 50 mL (ZOSYN) 3.375 g INTRAVENOUS q 6 H - [] iv contrast (radiology procedure) INTRAVENOUS DIRECTED PRN - [COMPLETED] piperacillin-tazobactam iv piggyback 3.375 g in dextrose (iso-osmotic) 50 mL (ZOSYN) 3.375 g INTRAVENOUS ONCE Outpatient Medications as of 08/30/2020 Medication Sig - multivitamin-ferrous fumarate-folic acid (CERTAVITE-ANTIOXIDANT) Take 1 tablet by mouth once daily. - ccxsppk-ceeuvqelx-lpzyjhu D3 (OYSTER SHELL CALCIUM-VITAMIN D) 500 mg(1,250mg) -200 unit per tablet TAKE (1) TABLET BY MOUTH TWICE A DAY. - polyethylene glycol 3350 (GAVILAX) 17 gram packet Take 1 Packet by mouth once daily. - divalproex DR (DEPAKOTE) 500 mg EC tablet Take 3 tablets by mouth daily at bedtime. at bedtime - lamoTRIgine ER (LAMICTAL XR) 100 mg 24 hr tablet Take 1 tablet by mouth once daily. - senna (SENNA) 8.6 mg tab Take 1 tablet by mouth twice daily. - pyridoxine, vitamin B6, (VITAMIN B-6) 100 mg tablet Take 1 tablet by mouth once daily. - zonisamide (ZONEGRAN) 100 mg capsule Take 1 capsule by mouth twice daily. - acetaminophen (TYLENOL) 650 mg suppository 1 Suppository by RECTAL route every 4 hours as needed. - acetaminophen (TYLENOL) 325 mg tablet Take 2 tablets by mouth every 6 hours as needed for Pain. - bisacodyl (DULCOLAX) 10 mg supp 1 Suppository by RECTAL route once daily as needed. - magnesium hydroxide (MILK OF MAGNESIA) 400 mg/5 mL suspension Take 15 mL by mouth once daily as needed for Constipation. Notify physician if no BM in 4 days - tamsulosin ER (FLOMAX) 0.4 mg Take 1 capsule by mouth daily at bedtime. - COMPOUNDED PRESCRIPTION Wheelchair with seat belt - COMPOUNDED PRESCRIPTION [place] Lift I have interviewed and examined the patient. I have reviewed the medical record and/or the pre-anesthesia evaluation, pertinent labs, and test results. This contains updated information obtained within 48 hours of Surgery/Procedure. SIGNATURE: Rosita West MD PATIENT NAME: Jesus Shaver DATE: August 30, 2020 TIME: 1:41 PM CSN: [id number] Normal [facility] CBC and Differentialon 08-30 Abs Baso 0.05 k/uL Normal <0.11 [facility] Abs [place] 1.40 k/uL High <0.87 [facility] Abs Neut 4.44 k/uL Normal 1.45-7.50 [facility] Absolute nRBC <0.01 Normal <0.01 [facility] Basophils/100 WBC (Bld) 0.6 % Normal [facility] DTYPE Auto Diff Normal [facility] Eosinophils (Bld) [#/Vol] 0.08 10*3/uL Normal <0.46 [facility] Eosinophils/100 WBC (Bld) 1.0 % Normal [facility] Erythrocyte distribution width (RBC) [Ratio] 16.8 % High 11.5-15.0 [facility] Hematocrit (Bld) [Volume fraction] 28.3 % Low 39.0-51.0 [facility] Hemoglobin (Bld) [Mass/Vol] 10.3 g/dL Low 13.0-17.0 [facility] Lymphocytes (Bld) [#/Vol] 1.84 10*3/uL Normal 1.00-4.00 [facility] Lymphocytes/100 WBC (Bld) 23.6 % Normal [facility] MCH 33.0 pG Normal 26.0-34.0 [facility] MCHC (RBC) [Mass/Vol] 36.4 g/dL High 30.5-36.0 [facility] MCV (RBC) [Entitic vol] 90.7 fL Normal 80.0-100.0 [facility] Monocytes/100 WBC (Bld) 17.9 % Normal [facility] Neutrophils/100 WBC (Bld) 56.9 % Normal [facility] NRBCs 0.0 /100 WBC Normal 0 [facility] Platelet mean volume (Bld) [Entitic vol] 12.8 fL High 9.0-12.7 [facility] Platelets (Bld) [#/Vol] 84 10*3/uL Low 150-400 [facility] Comment on above: Result Comment: [facility] le checked for a clot. RBC (Bld) [#/Vol] 3.12 10*6/uL Low 4.20-6.00 [facility] WBC (Bld) [#/Vol] 7.81 10*3/uL Normal 3.70-11.00 [facility] Comp Metabolic Panelon 08-30 Albumin [Mass/Vol] 2.3 g/dL Low 3.9-4.9 [facility] Comment on above: Performed By: #### H ACUTP EBVQNT ####[facility] [address] [place], [place] [phone] ALP [Catalytic activity/Vol] 377 U/L High 38-113 [facility] Comment on above: Performed By: #### H ACUTP EBVQNT ####[facility] [address] [place], [place] [phone] ALP [Catalytic activity/Vol] 371 U/L High 38-113 [facility] ALT [Catalytic activity/Vol] 89 U/L High 10-54 [facility] Comment on above: Performed By: #### H ACUTP, EBVQNT ####[address] [phone] ALT [Catalytic activity/Vol] 88 U/L High 10-54 [facility] Anion gap [Moles/Vol] 10 mmol/L Normal 9-18 [facility] Comment on above: Performed By: #### H ACUTP, EBVQNT ####[place] [phone] Anion gap [Moles/Vol] 11 mmol/L Normal 9-18 [facility] AST [Catalytic activity/Vol] 131 U/L High 14-40 [facility] Comment on above: Performed By: #### H ACUTP, EBVQNT ####[address] [phone] AST [Catalytic activity/Vol] 130 U/L High 14-40 [facility] Bilirubin [Mass/Vol] 15.6 mg/dL High 0.2-1.3 [facility] Comment on above: Performed By: #### H ACUTP, EBVQNT ####[address] [phone] Bilirubin [Mass/Vol] 15.7 mg/dL High 0.2-1.3 [facility] Calcium [Mass/Vol] 8.6 mg/dL Normal 8.5-10.2 [facility] Comment on above: Performed By: #### H ACUTP, EBVQNT ####[address] [phone] Calcium [Mass/Vol] 8.5 mg/dL Normal 8.5-10.2 [facility] Chloride [Moles/Vol] 104 mmol/L Normal 97-105 [facility] Comment on above: Performed By: #### H ACUTP, EBVQNT ####[address] [phone] Chloride [Moles/Vol] 103 mmol/L Normal 97-105 [facility] CO2 [Moles/Vol] 23 mmol/L Normal 22-33 [facility] Comment on above: Performed By: #### H MALISSA EBVQNT ####[facility], [place] [phone] Creatinine [Mass/Vol] 0.92 mg/dL Normal 0.73-1.22 [facility] Comment on above: Result Comment: Resu lt may be falsely decreased due to icteric interference. Performed By: #### H ACUTP EBVQNT ####[place] [address], [place] [phone] eGFR- Amer. >60 Normal [facility] Comment on above: Performed By: #### H ALBERP EBVQNT ####[place] [address], [place] [phone] eGFR-All Other Races >60 Normal [facility] Comment on above: Result Comment: eGFR (Estimated GFR) Units of measure: mL/min/1.73 meters squared eGFR is derived from the reexpressed MDRD Study equation using the following parameters: serum creatinine, age, gender and race. The creatinine assay has been calibrated to be traceable to IDMS. An eGFR <60 mL/min/1.73m2 for >3 months is consistent with chronic kidney disease. Refer to KDOQI guidelines for clinical interpretation. In patients with unstable renal function, e.g. those with acute kidney injury, the eGFR may not accurately reflect actual GFR. Performed By: #### H ACUTP EBVQNT ####[facility] [address] [place], [place] [phone] Glucose [Mass/Vol] 92 mg/dL Normal 74-99 [facility] Comment on above: Performed By: #### H ACUTP EBVQNT ####[facility], [place] [phone] Potassium [Moles/Vol] 3.1 mmol/L Low 3.7-5.1 [facility] Comment on above: Performed By: #### H ACUTP, EBVQNT ####[place] [address], [place] [phone] Protein [Mass/Vol] 4.9 g/dL Low 6.3-8.0 [facility] Comment on above: Performed By: #### H ACUTP, EBVQNT ####[address] [phone] Protein [Mass/Vol] 4.8 g/dL Low 6.3-8.0 [facility] Sodium [Moles/Vol] 137 mmol/L Normal 136-144 [facility] Comment on above: Performed By: #### H ACUTP, EBVQNT ####[address] [phone] Urea nitrogen [Mass/Vol] 17 mg/dL Normal 9-24 [facility] Comment on above: Performed By: #### H ACUTP, EBVQNT ####[address] [phone] EBV by PCR Quanton 1 EBV DNA, Quant Not detected Normal [facility] Comment on above: Result Comment: Refe rence Range: Negative for EBV DNA The Linear Range of this assay is 500 IU/mL to 1,000,000 IU/mL (2.70 log IU/mL to 6.00 log IU/mL). This test was developed and its performance characteristics determined by [facility]'s Billy Viveros [facility] Pathology and Laboratory Medicine [place] ( [facility]). It has not been cleared or approved by the FDA. [facility] is regulated under CLIA as qualified to perform high complexity testing. This test is used for clinical purposes. It should not be regarded as investigational or for research. Performed By: #### H ACUTP, EBVQNT ####[address] [phone] Hepatitis Acute Panel * OUT SIDE CLIENTS ONLY *on 08-30-2020 HBsAg Negative Normal Negative [facility] Comment on above: Performed By: #### H ACUTP, EBVQNT ####[place] [id number] [place] [phone] Hep B Core Ab, IgM Negative Normal Negative [facility] Comment on above: Performed By: #### H ACUTP, EBVQNT ####[place] [id number] [place] [phone] Hepatitis A Ab IgM Negative Normal Negative [facility] Comment on above: Performed By: #### H ACUTP, EBVQNT ####[place] [phone] Hepatitis C Ab IA Negative Normal Negative [facility] Comment on above: Performed By: #### H ACUTP, EBVQNT ####[place] [phone] Magnesiumon 08-30-2020 Magnesium [Mass/Vol] 2.0 mg/dL Normal 1.7-2.3 [facility] [place] Slide Teston 08-30-2020 [place] Slide Test Negative Normal Negative [facility] Comment on above: Performed By: #### H ACKARENP, EBVQNT ####[place] [phone] NURSING PROGon 08-30-2020 NURSING PROG HNO ID: [id number] Author: Arely Calle RN Service: Nursing Author Type: Registered Nurse Type: Nursing Progress Note Filed: 08/30/2020 6:09 PM Note Text: Nursing Progress Note Patient Name: Jesus Shaver Patient Location: [facility] SURG OR POOL/[facility] SURG OR POOL Daily Note: 1651-pt arrived in PACU not c/o any pain or nausea. 1753- spoke with Dr. Schneider, received orders for 500 cc bolus d/t BP of 98/56 1800- gave report to Elijah PAINTER This note was completed by: Arely Calle [facility] NURSING PROG HNO ID: [id number] Author: Mary Quinteros RN Service: ? Author Type: Registered Nurse Type: Nursing Progress Note Filed: 08/30/2020 12:56 PM Note Text: Nursing Progress Note Patient Name: Jesus Shaver Patient [facility]365/[facility]-1 Daily Note: 1000 Assumed care of patient. Assessment completed and charted. Pt resting in bed, no s/s of pain or discomfort. Will monitor. 1255 Patient left unit for ERCP. This note was completed by: Mary Quinteros [facility] Phosphoruson 08-30-2020 Phosphate [Mass/Vol] 3.1 mg/dL Normal 2.7-4.8 [facility] THERAPY NTon 08-30-2020 THERAPY NT HNO ID: [id number] Author: Elena Rider OT/L Service: Occupational Therapy Author Type: Occupational Therapist Type: Therapy (PT/OT/Speech/Resp) Filed: 08/30/2020 1:17 PM Note Text: OCCUPATIONAL THERAPY MISSED VISIT SERVICE DATE: 08/30/2020 SERVICE TIME: 1315 to 1315 ROOM: SURG OR POOL () Attempted Evaluation. Patient not seen due to Test/Procedure. Pt off the floor for ERCP. Will re-attempt as OT schedule permits. SIGNATURE: Elena Rider OT/Joon PATIENT NAME: Jesus Shaver DATE: August 30, 2020 TIME: 1:16 PM [facility] THERAPY NT HNO ID: [id number] Author: Chantell Elena PT Service: Physical Therapy Author Type: Physical Therapist Type: Therapy (PT/OT/Speech/Resp) Filed: 08/30/2020 12:50 PM Note Text: Physical Therapy Evaluation SERVICE DATE: 08/30/2020 SERVICE TIME: 0830 to 0900 ROOM: [place] [address] Recommended Discharge Disposition: Home PT (vs SNF ) Recommended Discharge Disposition Comments: not sure of pt's baseline for functional mobility. Per previous notes - appears pt uses w/c or walker for mobility with assist of staff. If [facility] can manage pt's needs, then pt would benefit from returning to senior care. Continue to assess d/c needs. Anticipated Discharge Needs: Physical Assist at Home Physical Assist at Home for: Transfers;Ambulation;Clean ing;Laundry;Meals;Medicati on Management;Stairs;Safety;S elf Care;Transportation;Wheelc hair Mobility;Shopping Recommended Discharge Equipment: To Be Determined PT 6 Clicks Score: 11 Precautions/Activity Restrictions: Fall Risk;Bed/Chair Alarm;Seizure Current Hospital Course: Pt is a 65yom adm with acute obstructive jaundice - scheduled for ERCP today. Reason for Hospital Admission: jaundice Relevant Past Medical History: MRDD, seizures PAST MEDICAL HISTORY Diagnosis Date - Acute cholecystitis - Bilateral leg weakness - Mild mental retardation - Seizure disorder (HCC) PAST SURGICAL HISTORY Procedure Laterality Date - PAST SURGICAL HISTORY OF VNS - REMOVAL TESTIS,SIMPLE Right 10/20/2019 Orchiectomy Response to Therapy Interventions: Good participation in activities, Low activity tolerance, Requires additional time to complete activities, Needs frequent redirection or re-instruction, Requires encouragement to complete activities, Cognitive deficits Continue skilled needs due to: Functional mobility/skill impairments, Safety concerns Physical Therapy Problem List: Cognitive Deficit;Safety Deficits;Impaired Self Care;Decreased Activity Tolerance;Functional Mobility Impairment;Balance Impaired Treatment Interventions: Education;Functional Mobility Training Plan for next visit: Bed mobility, Chair transfer training, Fall prevention, Gait training, Pre-gait activities, Sit to Stand Transfers, Standing Balance, Standing Tolerance, Walker Training, Sitting balance Home Environment Patient Lives With: Facility Care (pt lives in senior care) Assistance Available: 24 Hour Tub/Shower Type: has assist Laundry: has assist Equipment Owned: Wheeled Walker;Wheelchair Prior Functional Level: Required Assistance Assistance Required With: Transfers;Ambulation;Clean ing;Laundry;Meals;Medicati on Management;Stairs;Safety;S elf Care;Shopping;Wheelchair Mobility;Transportation Prior Functional Level Comments: pt is poor historian - from previous progress notes - appears that pt uses walker or w/c with assist of staff. Pt has 24/7 assist for all mobility. Per chart - pt has charlotte lift as well. Patient Report: Pt is minimally verbal - hx of MRDD; reports using walker at home. CURRENT FUNCTIONAL STATUS: Most recent performance Current Functional Mobility Assist Level Additional Information Rolling Moderate Assistance Supine to Sit Moderate Assistance Sit to Supine Moderate Assistance Scooting Moderate Assistance Sit to Stand Moderate Assistance Stand to Sit Moderate Assistance Bed to Chair Moderate Assistance Bed To Chair Transfer Equipment: Wheeled Walker Toilet/Commode Gait Moderate Assistance Gait Device: Wheeled Walker Gait Distance (feet): 10ft x 1 Stairs Curb Step Car Transfer Blank marquez indicate activity not attempted General Deviations/Observations: Flexed trunk posture;Difficulty changing direction/turning;Layla decreased;Step length decreased (unsteady gait; cues for safety) Balance: Static Sitting;Dynamic Sitting;Static Standing;Dynamic Standing Static Sitting Balance: Fair Patient able to maintain balance with handhold support, may require occasional minimal assistance Dynamic Sitting Balance: Fair Patient accepts minimal challenge, able to maintain balance while turning head/trunk Static Standing Balance: Poor Patient requires handhold support and moderate to maximal assistance to maintain position Dynamic Standing Balance: Poor Patient unable to accept challenge or move without loss of balance JH-HLM: 6: Walk 10 steps or more Learning/Educational Needs: Discharge Plan;Equipment;Functional Activities/Mobility;Plan of Care;Precautions;Safety Goals for Plan of Care: Patient /Caregiver Goals: Other: See Comment (pt unable to state) Able to perform HEP with: Verbal Cues Only Rolling with: Minimal Assistance Transfer supine to/from sit with: Minimal Assistance Ambulate with: Minimal Assistance Distance: 50ft Device: Wheeled Walker Transfer: all functional transfers- Latesha x 1 Rehab Potential: Fair Patient will be discontinued from Physical Therapy when no further skilled needs are identified (more content not included)... Normal [facility] XR ERCP READ ONLYon 08-31-19 XR ERCP READ ONLY * * *Final Report* * * DATE OF EXAM: Aug 30 2020 5:01PM HCR [id number] - XR ERCP READ ONLY / PROCEDURE REASON: OBSTRUCTION * * * * Physician Interpretation * * * * RESULT: EXAMINATION: ERCP HISTORY: Obstruction TECHNIQUE: Fluoroscopic Radiation Summary: Plane A, Air Kerma: 2.9 mGy Dose Area Product (DAP): 0.0 mGy*cm^2 Fluoro time: 0:17 min:sec RESULTS: 3 images show the endoscope but no contrast was injected. Images provided for physician assistance. IMPRESSION: Refer to the procedure report Transcribed Using Voice Recognition Transcribe Date/Time: Aug 30 2020 5:40P Dictated by: NILA BURGOS MD This examination was interpreted and the report reviewed and electronically signed by: NILA BURGOS MD on Aug 30 2020 5:41PM EST [id number] Normal [facility] CBC and Differentialon 08-29 Abs Baso 0.09 k/uL Normal <0.11 [facility] Abs [place] 1.33 k/uL High <0.87 [facility] Abs Neut 4.77 k/uL Normal 1.45-7.50 [facility] Absolute nRBC <0.01 Normal <0.01 [facility] Basophils/100 WBC (Bld) 1.0 % Normal [facility] DTYPE Auto Diff Normal [facility] Eosinophils (Bld) [#/Vol] 0.12 10*3/uL Normal <0.46 [facility] Eosinophils/100 WBC (Bld) 1.3 % Normal [facility] Erythrocyte distribution width (RBC) [Ratio] 16.5 % High 11.5-15.0 [facility] Hematocrit (Bld) [Volume fraction] 31.3 % Low 39.0-51.0 [facility] Hemoglobin (Bld) [Mass/Vol] 11.5 g/dL Low 13.0-17.0 [facility] Lymphocytes (Bld) [#/Vol] 2.63 10*3/uL Normal 1.00-4.00 [facility] Lymphocytes/100 WBC (Bld) 29.4 % Normal [facility] MCH 33.9 pG Normal 26.0-34.0 [facility] MCHC (RBC) [Mass/Vol] 36.7 g/dL High 30.5-36.0 [facility] MCV (RBC) [Entitic vol] 92.3 fL Normal 80.0-100.0 [facility] Monocytes/100 WBC (Bld) 14.9 % Normal [facility] Neutrophils/100 WBC (Bld) 53.4 % Normal [facility] NRBCs 0.0 /100 WBC Normal 0 [facility] Platelet mean volume (Bld) [Entitic vol] 11.5 fL Normal 9.0-12.7 [facility] Platelets (Bld) [#/Vol] 79 10*3/uL Low 150-400 [facility] Comment on above: Result Comment: Samp le checked for a clot. RBC (Bld) [#/Vol] 3.39 10*6/uL Low 4.20-6.00 [facility] WBC (Bld) [#/Vol] 8.94 10*3/uL Normal 3.70-11.00 [facility] CONSULTon 08-29-2020 CONSULT HNO ID: [id number] Author: Venkatesh Torres MD Service: Gastroenterology Author Type: Physician Type: Consults Filed: 08/29/2020 7:21 AM Note Text: INITIAL CONSULT GASTROENTEROLOGY SERVICE DATE: 08/29/2020 SERVICE TIME: 7:04 AM Consulting Service: Internal Medicine Opinion/advice regarding: jaundice Subjective HPI: History is from chart, outside hospital records, talking to primary service. ?65 yo with MRDD living in a home. He is a poor historian ?He has biopsy proven cirrhosis- see records as documented by primary team. ? He is admitted with jaundice and abdominal discomfort. An US was done on 08/27 as OSH- this shows per report the CBD to be 4 mm in diameter. ?Metal wires were found on x ray so MRCP was not done. He was then transferred to here for further care. Here: PLT < 100 K INR 1.4 T bili ?14.8 He denies abdominal pain this morning. He has no fever and no white count. Imaging at OSH shows prior cholecystectomy. Results for EPIFANIO SHAVER ( ) as of 08/29/2020 07:20 Ref. Range 07/03/2020 10:40 07/12/2020 13:15 08/27/2020 11:58 08/28/2020 18:28 08/29/2020 05:23 Albumin Latest Ref Range: 3.9 - 4.9 g/dL 3.7 (L) 2.7 (L) 2.6 (L) Bilirubin, Total Latest Ref Range: 0.2 - 1.3 mg/dL 0.3 14.8 (H) 14.8 (H) Alkaline Phosphatase Latest Ref Range: 38 - 113 U/L 67 336 (H) 344 (H) ALT Latest Ref Range: 10 - 54 U/L 15 100 (H) 95 (H) AST Latest Ref Range: 14 - 40 U/L 26 129 (H) 133 (H) Anion Gap Latest Ref Range: 9 - 18 mmol/L 7 (L) 9 11 Reason For Exam (US Abdomen Limited) jaundice Report Clinical Information: Jaundice. Prior cholecystectomy. Ultrasound right upper quadrant of abdomen: The examination is limited by poor penetration of sound secondary to bowel gas in the patient's inability to breath-hold. The gallbladder is absent consistent with the surgical history. The common bile duct measures 4.4 mm which is within normal limits. Most of the left lobe of the liver is obscured by shadowing from bowel gas. The visualized liver is unremarkable in size and echogenicity without mass or intrahepatic biliary dilatation. The pancreas?is obscured by shadowing from bowel gas. The right kidney is grossly unremarkable in size and echogenicity. There is no hydronephrosis. There is no ascites. IMPRESSION: 1. Limited examination due to poor penetration of sound secondary to bowel gas. 2. Status post cholecystectomy. 3. The left lower liver and pancreas are obscured by shadowing from bowel gas. 4. No significant sonographic abnormality of visualized liver or biliary tree. Report Dictated on --- Final --- Dictated: 08/27/2020 10:35 am Dictating Physician: MD ZEPEDA HARLAN Signed Date and Time: 08/27/2020 10:38 am Signed by: MD ZEPEDA HARLAN Transcribed Date and Time: 08/27/2020 10:35 Other Result Text [facility], [facility]27/[facility] 10:39 AM EDT Patient Name: ?JESUS SHAVER MRN: ? [id number] Results for EPIFANIO SHAVER ( ) as of 08/28/2020 21:31 08/28/2020 18:28 Albumin: 2.7 (L) Bilirubin, Total: 14.8 (H) Alkaline Phosphatase: 336 (H) ALT: 100 (H) AST: 129 (H) PAST MEDICAL HISTORY Diagnosis Date - Acute cholecystitis - Bilateral leg weakness - Mild mental retardation - Seizure disorder (HCC) PAST SURGICAL HISTORY Procedure Laterality Date - PAST SURGICAL HISTORY OF VNS - REMOVAL TESTIS,SIMPLE Right 10/20/2019 Orchiectomy No family history on file. Social History Tobacco Use - Smoking status: Never Smoker - Smokeless tobacco: Never Used Substance Use Topics - Alcohol use: No - Drug use: No MEDICATIONS: Prior to Admission Medications: multivitamin-ferrous fumarate-folic acid (CERTAVITE-ANTIOXIDANT) Take 1 tablet by mouth once daily. vucxppn-raeojnbka-wmrvzrz D3 (OYSTER SHELL CALCIUM-VITAMIN D) 500 mg(1,250mg) -200 unit per tablet TAKE (1) TABLET BY MOUTH TWICE A DAY. polyethylene glycol 3350 (GAVILAX) 17 gram packet Take 1 Packet by mouth once daily. divalproex DR (DEPAKOTE) 500 mg EC tablet Take 3 tablets by mouth daily at bedtime. at bedtime lamoTRIgine ER (LAMICTAL XR) 100 mg 24 hr tablet Take 1 tablet by mouth once daily. senna (SENNA) 8.6 mg tab Take 1 tablet by mouth twice daily. pyridoxine, vitamin B6, (VITAMIN B-6) 100 mg tablet Take 1 tablet by mouth once daily. zonisamide (ZONEGRAN) 100 mg capsule Take 1 capsule by mouth twice daily. acetaminophen (TYLENOL) 650 mg suppository 1 Suppository by RECTAL route every 4 hours as needed. acetaminophen (TYLENOL) 325 mg tablet Take 2 tablets by mouth every 6 hours as needed for Pain. bisacodyl (DULCOLAX) 10 mg supp 1 Suppository by RECTAL route once daily as needed. magnesium hydroxide (MILK OF MAGNESIA) 400 mg/5 mL suspension Take 15 mL by mouth once daily as needed for Constipation. Not (more content not included)... [facility] CONSULT PROGon 08-29-2020 CONSULT PROG HNO ID: [id number] Author: Venkatesh Torres MD Service: Gastroenterology Author Type: Physician Type: Consult Progress Note Filed: 08/29/2020 3:08 PM Note Text: GI staff CBD stone and dilation on CT Jaundice. Biopsy proven cirrhosis Normal WBC No fever No pain on exam Patient does not appear consentable (MRDD history). Psych Specialist number just rings busy I spoke with primary service, no family that has checked in on patient so far If no POA found, will need two staff consent for necessary ERCP 08/30 NPO after midnight for ERCP 08/30, reviewed with ERCP staff. Continue antibiotics. Gave him Vit K SC for INR 1.[address] Nubia Oseguera found a number for patient in past that consented for a different procedure: [phone] justina olmos. Will try this for consent Normal [facility] CT ABD/PEL W IVCONon 021 CT ABD/PEL W IVCON * * *Final Report* * * DATE OF EXAM: Aug 29 2020 1:52PM [facility] 0530 - CT ABD/PEL W IVCON / PROCEDURE REASON: Cirrhosis or Fatty Liver * * * * Physician Interpretation * * * * RESULT: EXAMINATION: CT ABDOMEN AND PELVIS WITH IV CONTRAST CLINICAL HISTORY: Cirrhosis or Fatty Liver Cirhosis TECHNIQUE: CT of the abdomen and pelvis was performed using standard technique, scanning from just above the dome of the diaphragm to the symphysis pubis. MQ: CTAP_3 Contrast: IV: 146 ml of Omnipaque 300 CT Radiation dose: Integrated Dose-length product (DLP) for this visit = 1682 mGy*cm. CT Dose Reduction Employed: Automated exposure control (AEC) COMPARISON: None. RESULT: Liver: No mass. Biliary: Mild central intrahepatic bile duct dilatation. Thickening of the wall of the common duct. Small calcific opacity noted within the common duct suggesting choledocholithiasis. Spleen: No mass. No splenomegaly. Pancreas: No mass or duct dilation. Adrenals: No mass. Kidneys: Normal GI tract: No dilation or wall thickening. Lymph nodes: No abdominal or pelvic lymphadenopathy. Mesentery/Peritoneum: No ascites or mass. Retroperitoneum: No mass. Vasculature: The celiac axis and SMA are patent. The portal vein and branches, splenic vein, SMV, and hepatic veins are patent. Abdominal aorta normal in caliber. Atherosclerotic calcifications are noted. Pelvis: No mass, ascites or fluid collection. Mild diffuse thickening of the wall of the urinary bladder. Mildly enlarged prostate Bones/Soft Tissues: Compression deformity T12 likely remote Lower thorax: Minor bibasilar atelectasis. Stewardesses Teacher (topogram) images: No additional findings. IMPRESSION: Mild intrahepatic biliary dilatation. Evidence of choledocholithiasis. Mild thickening of the extrahepatic biliary ductal wall. Mild diffuse thickening of the wall of the urinary bladder. Mildly enlarged prostate. Minor atelectasis both lung bases. Remote compression fracture T12. Transcribed Using Voice Recognition Transcribe Date/Time: Aug 29 2020 2:15P Dictated by: NADEGE CROCKETT MD This examination was interpreted and the report reviewed and electronically signed by: NADEGE CROCKETT MD on Aug 29 2020 2:19PM EST [id number] Normal [facility] Comp Metabolic Panelon 08-29 Albumin [Mass/Vol] 2.6 g/dL Low 3.9-4.9 [facility] ALP [Catalytic activity/Vol] 344 U/L High 38-113 [facility] ALT [Catalytic activity/Vol] 95 U/L High 10-54 [facility] Anion gap [Moles/Vol] 11 mmol/L Normal 9-18 [facility] AST [Catalytic activity/Vol] 133 U/L High 14-40 [facility] Bilirubin [Mass/Vol] 14.8 mg/dL High 0.2-1.3 [facility] Calcium [Mass/Vol] 8.9 mg/dL Normal 8.5-10.2 [facility] Chloride [Moles/Vol] 102 mmol/L Normal 97-105 [facility] CO2 [Moles/Vol] 22 mmol/L Normal 22-33 [facility] Creatinine [Mass/Vol] 0.82 mg/dL Normal 0.73-1.22 [facility] Comment on above: Result Comment: Resu lt may be falsely decreased due to icteric interference. eGFR- Amer. >60 Normal [facility] eGFR-All Other Races >60 Normal [facility] Comment on above: Result Comment: eGFR (Estimated GFR) Units of measure: mL/min/1.73 meters squared eGFR is derived from the reexpressed MDRD Study equation using the following parameters: serum creatinine, age, gender and race. The creatinine assay has been calibrated to be traceable to IDMS. An eGFR <60 mL/min/1.73m2 for >3 months is consistent with chronic kidney disease. Refer to KDOQI guidelines for clinical interpretation. In patients with unstable renal function, e.g. those with acute kidney injury, the eGFR may not accurately reflect actual GFR. Glucose [Mass/Vol] 76 mg/dL Normal 74-99 [facility] Potassium [Moles/Vol] 3.4 mmol/L Low 3.7-5.1 [facility] Protein [Mass/Vol] 5.3 g/dL Low 6.3-8.0 [facility] Sodium [Moles/Vol] 135 mmol/L Low 136-144 [facility] Urea nitrogen [Mass/Vol] 17 mg/dL Normal 9-24 [facility] NURSING PROGon 08-29-2020 NURSING PROG HNO ID: [id number] Author: Suad Rider RN Service: ? Author Type: Registered Nurse Type: Nursing Progress Note Filed: 08/29/2020 8:00 PM Note Text: Nursing Progress Note Patient Name: Jesus Shaver Patient Location: [facility] Daily Note: Assessment completed. Pt resting in bed, offers no complaints, denies pain. Vitals stable. External cath draining danilo. Rick light in reach. Bed alarm on. Will monitor. This note was completed by: Suad Rider [facility] NURSING PROG HNO ID: [id number] Author: Bia Simpson RN Service: Nursing Author Type: Registered Nurse Type: Nursing Progress Note Filed: 08/29/2020 1:10 AM Note Text: Nursing Progress Note Patient Name: Jesus Shaver Patient Location: [facility] Daily Note:0022: Assumed care of patient. Assessment complete. IV intact and patent. Pt denies pain, no other needs present. Safety maintained. This note was completed by: Bia Simpson [facility] NURSING PROG HNO ID: [id number] Author: Aniceto Ewing RN Service: Nursing Author Type: Registered Nurse Type: Nursing Progress Note Filed: 08/28/2020 10:42 PM Note Text: Nursing Progress Note Patient Name: Jesus Shaver [place] [address] [address] Daily Note: 1900 Assumed care of pt. AANDOx2. Call light within reach. Bed locked in lowest position. Bed alarm on. Denies further needs at this time. 2100 Assessment and vitals as charted. Denies chest pain, shortness of breath, dizziness, and numbness/tingling. Scheduled meds administered per eMAR. Call light within reach. Bed locked in lowest position with bed alarm activated. Safety maintained. This note was completed by: Aniceto Ewing [facility] THERAPY NTon 08-29-2020 THERAPY NT HNO ID: [id number] Author: Christopher Crawford PT Service: Physical Therapy Author Type: Physical Therapist Type: Therapy (PT/OT/Speech/Resp) Filed: 08/29/2020 12:22 PM Note Text: PHYSICAL THERAPY MISSED VISIT SERVICE DATE: 08/29/2020 SERVICE TIME: 1215 to 1215 ROOM: [place] [address] Attempted Evaluation. Patient not seen due to Test/Procedure - per nursing. SIGNATURE: Christopher Crawford PT PATIENT NAME: Jesus Shaver DATE: August 29, 2020 TIME: 12:22 PM [facility] ALLIED HEALTHon 08-28-2020 ALLIED HEALTH HNO ID: [id number] Author: RT Janis(R) Service: ? Author Type: Fruit Harvester Type: Allied Health Filed: 08/28/2020 8:13 PM Note Text: Radiology Service Progress Note PATIENT NAME: Jesus Shaver DATE OF SERVICE: August 28, 2020 TIME: 8:13 PM PATIENT IDENTITY VERIFICATION COMPLETED USING TWO (2) IDENTIFIERS: Name and Date of confirmed by patient verbally and Name and Date of confirmed by identification band. FALL SCREENING: Has the patient had 2 falls in the last year or 1 fall with injury or currently using an Ambulatory Assistive Device (Walker, Cane, Wheelchair, Crutches, etc.)? Inpatient: Screened on floor PATIENT GENDER DATA: Male PATIENT RELEVANT IMPLANT DATA REVIEWED: Yes RADIOLOGY DEPARTMENT: General X-ray: Exam(s) Completed: Chest X-Ray PERIPHERAL IV DATA: Not applicable SIGNED BY: RT Janis(R) August 28, 2020 8:13 PM Normal [facility] CBC and Differentialon 08-28 Abs Baso 0.05 k/uL Normal <0.11 [facility] Abs [place] 1.30 k/uL High <0.87 [facility] Abs Neut 4.63 k/uL Normal 1.45-7.50 [facility] Absolute nRBC <0.01 Normal <0.01 [facility] Basophils/100 WBC (Bld) 0.6 % Normal [facility] DTYPE Auto Diff Normal [facility] Eosinophils (Bld) [#/Vol] 0.11 10*3/uL Normal <0.46 [facility] Eosinophils/100 WBC (Bld) 1.4 % Normal [facility] Erythrocyte distribution width (RBC) [Ratio] 16.3 % High 11.5-15.0 [facility] Hematocrit (Bld) [Volume fraction] 32.7 % Low 39.0-51.0 [facility] Hemoglobin (Bld) [Mass/Vol] 11.8 g/dL Low 13.0-17.0 [facility] Lymphocytes (Bld) [#/Vol] 1.84 10*3/uL Normal 1.00-4.00 [facility] Lymphocytes/100 WBC (Bld) 23.2 % Normal [facility] MCH 33.3 pG Normal 26.0-34.0 [facility] MCHC (RBC) [Mass/Vol] 36.1 g/dL High 30.5-36.0 [facility] MCV (RBC) [Entitic vol] 92.4 fL Normal 80.0-100.0 [facility] Monocytes/100 WBC (Bld) 16.4 % Normal [facility] Neutrophils/100 WBC (Bld) 58.4 % Normal [facility] NRBCs 0.0 /100 WBC Normal 0 [facility] Platelet mean volume (Bld) [Entitic vol] 12.0 fL Normal 9.0-12.7 [facility] Platelets (Bld) [#/Vol] 79 10*3/uL Low 150-400 [facility] Comment on above: Result Comment: [facility] le checked for a clot. RBC (Bld) [#/Vol] 3.54 10*6/uL Low 4.20-6.00 [facility] WBC (Bld) [#/Vol] 7.93 10*3/uL Normal 3.70-11.00 [facility] COVID 19 NPon 08-28-2020 SARS-CoV-2 (COVID-19) RNA AURY+probe Ql (Unsp spec) UPPER RESPIRATORY TRACT SWAB Normal [facility] Comment on above: Performed By: #### C OVDNP ####[place] [id number] [place], [place] [id number] SARS-CoV-2 (COVID-19) RNA AURY+probe Ql (Unsp spec) Negative for COVID19 (SARS CoV2) by RT-PCR or equivalent method. Normal Negative for COVID19 (SARS CoV2) by RT-PCR or equivalent method. [facility] Comment on above: Result Comment: This test was developed and its performance characteristics determined by [facility] Billy Alejandra. [facility] [place]. This test has been authorized by FDA under an Emergency Use Authorization (EUA). This test has been validated in accordance with the FDA's Guidance Document "Policy for Diagnostics Testing in Laboratories Certified to Perform High Complexity Testing under CLIA prior to Emergency use Authorization for Coronavirus Disease 2019 during the Public Health Emergency" issued on June 21, 2019. Test performed by [facility], [facility] Pathology and Laboratory Medicine [place], [address], [place] [address]. Performed By: #### C OVDN ####[facility] [id number] [place], [place] [phone] Comp Metabolic Panelon 08-28 Albumin [Mass/Vol] 2.7 g/dL Low 3.9-4.9 [facility] ALP [Catalytic activity/Vol] 336 U/L High 38-113 [facility] ALT [Catalytic activity/Vol] 100 U/L High 10-54 [facility] Anion gap [Moles/Vol] 9 mmol/L Normal 9-18 [facility] AST [Catalytic activity/Vol] 129 U/L High 14-40 [facility] Bilirubin [Mass/Vol] 14.8 mg/dL High 0.2-1.3 [facility] Calcium [Mass/Vol] 9.3 mg/dL Normal 8.5-10.2 [facility] Chloride [Moles/Vol] 104 mmol/L Normal 97-105 [facility] CO2 [Moles/Vol] 27 mmol/L Normal 22-33 [facility] Creatinine [Mass/Vol] 0.88 mg/dL Normal 0.73-1.22 [facility] Comment on above: Result Comment: Resu lt may be falsely decreased due to icteric interference. eGFR- Amer. >60 Normal [facility] eGFR-All Other Races >60 Normal [facility] Comment on above: Result Comment: eGFR (Estimated GFR) Units of measure: mL/min/1.73 meters squared eGFR is derived from the reexpressed MDRD Study equation using the following parameters: serum creatinine, age, gender and race. The creatinine assay has been calibrated to be traceable to IDMS. An eGFR <60 mL/min/1.73m2 for >3 months is consistent with chronic kidney disease. Refer to KDOQI guidelines for clinical interpretation. In patients with unstable renal function, e.g. those with acute kidney injury, the eGFR may not accurately reflect actual GFR. Glucose [Mass/Vol] 82 mg/dL Normal 74-99 [facility] Potassium [Moles/Vol] 3.4 mmol/L Low 3.7-5.1 [facility] Protein [Mass/Vol] 5.5 g/dL Low 6.3-8.0 [facility] Sodium [Moles/Vol] 140 mmol/L Normal 136-144 [facility] Urea nitrogen [Mass/Vol] 19 mg/dL Normal 9-24 [facility] Comp Panel with Mg Reflexon 08-28-2020 Potassium [Moles/Vol] 3.7 mmol/L Normal 3.5-5.1 [facility] Comment on above: Performed By: #### C MP3M ####[place] [address] [facility] [place] ALP [Catalytic activity/Vol] 332 U/L High 38-126 [facility] Comment on above: Performed By: #### C MP3M ####[facility] [address] [place], [place] ALT [Catalytic activity/Vol] 136 U/L High 0-49 [facility] Comment on above: Result Comment: The ALT test is performed by an updated assay method. Please note that the reference intervals have been changed and are now sex specific. Performed By: #### C MP3M ####[facility] [address] [place], [place] Calcium [Mass/Vol] 9.7 mg/dL Normal 8.4-10.4 [facility] Comment on above: Performed By: #### C MP3M ####[facility] [address] [place], [place] Glucose [Mass/Vol] 87 mg/dL Normal 70-100 [facility] Comment on above: Performed By: #### C MP3M ####[facility] [address] [place], [place] Urea nitrogen [Mass/Vol] 20 mg/dL Normal 7-20 [facility] Comment on above: Performed By: #### C MP3M ####[facility] [address] [facility] [place] Anion gap [Moles/Vol] 9 mmol/L Normal 3-13 [facility] Comment on above: Performed By: #### C MP3M ####[facility] [address] [place], [place] AST [Catalytic activity/Vol] 170 U/L High 15-46 [facility] Comment on above: Performed By: #### C MP3M ####[facility] [place], [place] Bilirubin [Mass/Vol] 15.5 mg/dL High 0.2-1.3 [facility] Comment on above: Performed By: #### C MP3M ####[place] [address] [place], [place] CO2 [Moles/Vol] 26 mmol/L Normal 22-30 [facility] Comment on above: Performed By: #### C MP3M ####[place] [address] [place], [place] Creatinine [Mass/Vol] 0.92 mg/dL Normal 0.52-1.25 [facility] Comment on above: Performed By: #### C MP3M ####[place] [address] [place], [place] GFR/1.73 sq M.predicted among blacks MDRD (S/P/Bld) [Vol rate/Area] mL/min/{1.73_m2} Normal >60 [facility] Comment on above: Performed By: #### C MP3M ####[place] [address] [place], [place] GFR/1.73 sq M.predicted among non-blacks MDRD (S/P/Bld) [Vol rate/Area] 87.5 mL/min/{1.73_m2} Normal >60 [facility] Comment on above: Result Comment: KDIG O guidelines provide the following GFR categories: Stage GFR(ml/min/1.73 m2) Terms G1 >=90 Normal or high G2 60-89 Mildly decreased* G3a 45-59 Mildly to moderately decreased G3b 30-44 Moderately to severely decreased G4 15-29 Severely decreased G5 <15 Kidney failure *Relative to young adult level. In the absence of evidence of kidney damage, neither GFR category G1 nor G2 fulfill the criteria for CKD. The CKD-EPI equation is validated in individuals 18 years of age and older. Currently the best equation for estimating glomerular filtration rate (GFR) from serum creatinine in children is the Bedside Patton equation. It is less accurate in patients with extremes of muscle mass, restriction of dietary protein, ingestion of creatine, extra-renal metabolism of creatinine, or treatment with medications that affect renal tubular creatinine secretion. Performed By: #### C MP3M ####[facility] [place] [address] Protein [Mass/Vol] 7.0 g/dL Normal 6.3-8.2 [facility] Comment on above: Performed By: #### C MP3M ####[facility] [place] [address] Chloride [Moles/Vol] 105 mmol/L Normal 98-107 [facility] Comment on above: Performed By: #### C MP3M ####[place] [address] [place] [address] Sodium [Moles/Vol] 140 mmol/L Normal 135-145 [facility] Comment on above: Performed By: #### C MP3M ####[place] [address] [place] [address] Albumin [Mass/Vol] 3.4 g/dL Low 3.5-5.0 [facility] Comment on above: Performed By: #### C MP3M ####[place] [address] [place] [address] Comprehensive Metabolic Pane l w/ Reflex to MGOrdered By: Donaldo Jeffers on 08-28-2020 Albumin [Mass/Vol] 3.4 g/dL Low 3.5 - 5.0 g/dL [facility] Work Phone: ALP (Bld) [Catalytic activity/Vol] 332 U/L High 38 - 126 U/L [facility] Work Phone: ALT [Catalytic activity/Vol] 136 U/L High 0 - 49 U/L [facility] Work Phone: Comment on above: The ALT test is perf ormed by an updated assay method. Please note that the reference intervals have been changed and are now sex specific. Anion gap [Moles/Vol] 9 mmol/L 3 - 13 mmol/L [facility] Work Phone: [phone] AST [Catalytic activity/Vol] 170 U/L High 15 - 46 U/L [facility] Work Phone: [phone] Bilirubin [Mass/Vol] 15.5 mg/dL High 0.2 - 1 .3 mg/dL [facility] Work Phone: Calcium [Mass/Vol] 9.7 mg/dL 8.4 - 10. 4 mg/dL [facility] Work Phone: [phone] Chloride [Moles/Vol] 105 mmol/L 98 - 10 7 mmol/L [facility] Work Phone: [phone] CO2 [Moles/Vol] 26 mmol/L 22 - 30 mmol/L [facility] Work Phone: [phone] Creatinine [Mass/Vol] 0.92 mg/dL 0.52 - 1.25 mg/dL [facility] Work Phone: [phone] EGFR IF NonAfrican [place]an 87.5 mL/min >60 [facility] Work Phone: [phone] Comment on above: KDIGO guidelines pro vide the following GFR categories: Stage GFR(ml/min/1.73 m2) Terms G1 >=90 Normal or high G2 60-89 Mildly decreased* G3a 45-59 Mildly to moderately decreased G3b 30-44 Moderately to severely decreased G4 15-29 Severely decreased G5 <15 Kidney failure *Relative to young adult level. In the absence of evidence of kidney damage, neither GFR category G1 nor G2 fulfill the criteria for CKD. The CKD-EPI equation is validated in individuals 18 years of age and older. Currently the best equation for estimating glomerular filtration rate (GFR) from serum creatinine in children is the Bedside Patton equation. It is less accurate in patients with extremes of muscle mass, restriction of dietary protein, ingestion of creatine, extra-renal metabolism of creatinine, or treatment with medications that affect renal tubular creatinine secretion. Free PSA/Total PSA [Mass fraction] 7.0 g/dL 6.3 - 8.2 g/dL [facility] Work Phone: GFR/1.73 sq M.predicted among blacks MDRD (S/P/Bld) [Vol rate/Area] mL/min/{1.73_m2} >60 mL/min [facility] Work Phone: Glucose [Mass/Vol] 87 mg/dL 70 - 100 mg/dL [facility] Work Phone: Interpretation and review of laboratory results Abnormal [facility] Work Phone: Potassium [Moles/Vol] 3.7 mmol/L 3.5 - 5.1 mmol/L [facility] Work Phone: Sodium [Moles/Vol] 140 mmol/L 135 - 145 mmol/L [facility] Work Phone: Urea nitrogen (BldV) [Mass/Vol] 20 mg/dL 7 - 20 mg/dL [facility] Work Phone: Test Performed by [address] [address] [facility] Work Phone: HISTORY PHYSICALon HISTORY PHYSICAL HNO ID: [id number] Author: Corona Dangelo MD Service: ? Author Type: Physician Type: HANDP Filed: 08/28/2020 8:03 PM Note Text: DEPARTMENT OF HOSPITAL MEDICINE HISTORY AND PHYSICAL EXAM SERVICE DATE: 08/28/2020 Code Status: Not on file SERVICE TIME: 7:34 PM Primary Care Physician: Jesus Mills MD NIGHT AND WEEKEND COVERAGE: [facility] COVERAGE: Patient admitted to internal medicine From 0700 - 1630, please contact pager primary for patient issues. From 1630 - 07, please contact the Night Hospitalist on pager [phone] for patient issues. Subjective CHIEF COMPLAINT: Jaundice and abdominal pain HPI: This is a 65 year old male who presents with jaundice and abdominal pain. History is obtained from online records as patient has a history of MRDD and is a poor historian. He presented to [facility] with Jaundice and abdominal pain. He endorses epigastric abdominal pain that he characterizes as ?"just hurts" it is intermittent and worse with eating. He denies alleviating factors or radiation. He denies nausea, vomiting, dysphagia, odynophagia, melena, or hematochezia. He states his bowel movements are fine but cannot define appearance. He denies constipation or diarrhea. Last bowel movement unknown. Denies history of tobacco use, EtOH, and recreational drugs. Denies use of daily NSAIDs and tylenol. No blood thinners. Patient poor historian due to MRDD. the following was his diagnosis and management Liver Zack-Cut biopsy showed chronic hepatitis grade 2-3. Mild increase in intraparenchymal iron deposits. Unsuccessful cholangiogram (01/19/2020) Liver biopsy (01/19/2020) Trichrome stain with matched control reveals broad band periportal septal fibrosis with evidence of cirrhosis. Reticulin stain with matched control reveals a normal architectural pattern. Iron stain is mildly increased in the parenchyma/hepatocytes. PAS and PASD stains does not reveal accumulation of abnormal proteins. Clinical correlation suggested. PAST MEDICAL HISTORY Diagnosis Date - Acute cholecystitis - Bilateral leg weakness - Mild mental retardation - Seizure disorder (HCC) PAST SURGICAL HISTORY Procedure Laterality Date - PAST SURGICAL HISTORY OF VNS - REMOVAL TESTIS,SIMPLE Right 10/20/2019 Orchiectomy No family history on file. Social History Tobacco Use - Smoking status: Never Smoker - Smokeless tobacco: Never Used Substance Use Topics - Alcohol use: No - Drug use: No PRIOR TO ADMISSION MEDICATIONS: multivitamin-ferrous fumarate-folic acid (CERTAVITE-ANTIOXIDANT), Take 1 tablet by mouth once daily., Disp: 30 tablet, Rfl: 5 rwxubgg-lljykoekp-ghfljqo D3 (OYSTER SHELL CALCIUM-VITAMIN D) 500 mg(1,250mg) -200 unit per tablet, TAKE (1) TABLET BY MOUTH TWICE A DAY., Disp: 60 tablet, Rfl: 5 polyethylene glycol 3350 (GAVILAX) 17 gram packet, Take 1 Packet by mouth once daily., Disp: 30 Packet, Rfl: [address] (DEPAKOTE) 500 mg EC tablet, Take 3 tablets by mouth daily at bedtime. at bedtime, Disp: 90 tablet, Rfl: 11 lamoTRIgine ER (LAMICTAL XR) 100 mg 24 hr tablet, Take 1 tablet by mouth once daily., Disp: 30 tablet, Rfl: 11 senna (SENNA) 8.6 mg tab, Take 1 tablet by mouth twice daily., Disp: 60 tablet, Rfl: 11 pyridoxine, vitamin B6, (VITAMIN B-6) 100 mg tablet, Take 1 tablet by mouth once daily., Disp: 30 tablet, Rfl: 11 zonisamide (ZONEGRAN) 100 mg capsule, Take 1 capsule by mouth twice daily., Disp: 60 capsule, Rfl: 11 acetaminophen (TYLENOL) 650 mg suppository, 1 Suppository by RECTAL route every 4 hours as needed., Disp: 30 Suppository, Rfl: 11 acetaminophen (TYLENOL) 325 mg tablet, Take 2 tablets by mouth every 6 hours as needed for Pain., Disp: 90 tablet, Rfl: 11 bisacodyl (DULCOLAX) 10 mg supp, 1 Suppository by RECTAL route once daily as needed., Disp: 30 Suppository, Rfl: 5 magnesium hydroxide (MILK OF MAGNESIA) 400 mg/5 mL suspension, Take 15 mL by mouth once daily as needed for Constipation. Notify physician if no BM in 4 days, Disp: 450 mL, Rfl: 11 tamsulosin ER (FLOMAX) 0.4 mg, Take 1 capsule by mouth daily at bedtime., Disp: 30 capsule, Rfl: 11 COMPOUNDED PRESCRIPTION, Wheelchair with seat belt, Disp: 1 Each, Rfl: 0 COMPOUNDED PRESCRIPTION, [place] Lift, Disp: 1 Each, Rfl: 0 ALLERGIES Allergen Reactions - Keppra [Levetiracet* Other: See Comments Increased seizures - Vicks Vaporub [Camp* Rash REVIEW OF SYSTEM: could not be complated as patient just keeps saying "I want my food" on every question Objective PHYSICAL EXAM: BP 107/50 Pulse 57 Temp (Src) 97.3 (Oral) Resp 18 SpO2 98% O2 Therapy: Room Air Physical Exam Performed: GENERAL: Alert, no distress, cooperative, jaundiced skin EYES: scleral icterus LUNGS: Lungs clear to auscultation, Good diaphragmatic excursion CARDIAC: Normal S1 and S2; no rubs, murmurs, or gallops ABDOMEN: Abdomen soft, non-tender, BS normal, No masses or organomegaly EXTREMITIES: Extremi (more content not included)... Normal [facility] NURSING PROGon 08-28-2020 NURSING PROG HNO ID: [id number] Author: Lubna Vaz RN Service: ? Author Type: Registered Nurse Type: Nursing Progress Note Filed: 08/28/2020 6:16 PM Note Text: Nursing Progress Note Patient Name: Jesus Shaver Patient [facility] Daily Note: The patient understands simple instruction. Using the call light his self. Moves his upper extremity not his lower extremities. The Hospitalist. will be up to write orders. This note was completed by: Audra Vaz Normal [facility] Protimeon 08-28-2020 PT INR 1.4 High 0.9-1.3 [facility] Comment on above: Result Comment: Rocio min K Antagonist (VKA) Therapeutic Range: INR 2 to 3 (Target INR of 2.5) Note: For patients treated with VKA drugs, such as warfarin, the [place] [employer] 2012 Guideline recommends a therapeutic INR range of 2 to 3 (target INR of 2.5). This recommendation includes high-risk patients with antiphospholipid syndrome with previous arterial or venous thromboembolism, current-generation mechanical or bioprosthetic aortic heart valve replacement. Note: Patients with mechanical aortic valve replacement and additional risk factors for thromboembolic events (atrial fibrillation, previous thromboembolism, LV dysfunction, hypercoagulable conditions) or an older generation mechanical AVR (i.e., ball in-Cage) or any mechanical MVR should have a INR therapeutic range of 2.5 to 3.5 (target INR of 3). Elvi GH, et al. Chest 2012, 141:7S-47S Jermaine RA, et al. [facility] 2017, 70: 252-289 PT Sec 14.6 sec High 9.7-13.0 [facility] Valproic Acidon 08-28-2020 Valproic Acid 70.5 ug/mL Normal 50-100 [facility] Comment on above: Result Comment: Refe rence ranges and high/low indicator flags are provided as general guidelines only. The treating physician must determine appropriate target levels/dosing based on the specific clinical situation. XR CHEST 2V FRONTAL/LATon XR CHEST 2V FRONTAL/LAT * * *Final Report* * * DATE OF EXAM: Aug 28 2020 8:11PM HCX 5291 - XR CHEST 2V FRONTAL/LAT / PROCEDURE REASON: Chest pain * * * * Physician Interpretation * * * * RESULT: EXAMINATION: CHEST RADIOGRAPH (2 VIEW FRONTAL and LATERAL) CLINICAL HISTORY: Chest pain MQ: [id number] EXAM DATE/TIME: 08/28/2020 8:11 PM COMPARISON: No relevant prior studies available. RESULT: Lines, tubes, and devices: None. Lungs and pleura: Shallow respiratory effort. There may be a small left effusion. No confluent infiltrate, venous congestion or pneumothorax. Cardiomediastinal silhouette: Normal cardiomediastinal silhouette. Bones and soft tissues: Unremarkable. IMPRESSION: Questionable small left effusion. No infiltrate Transcribed Using Voice Recognition Transcribe Date/Time: Aug 28 2020 8:30P Dictated by: NILA BURGOS MD This examination was interpreted and the report reviewed and electronically signed by: NILA BURGOS MD on Aug 28 2020 8:31PM EST [id number] Normal [facility] COVID-19Ordered By: Todd Hyatt on 08-27-2020 SARS-CoV-2 (COVID-19) RNA AURY+probe Ql (Unsp spec) Not detected Not Detected [employer] Work Phone: Comment on above: Not Detected. Expected Result: Not Detected _ Real-time, RT-PCR performed on the [employer] System by the [facility] Negative results do not preclude SARS-CoV-2 infection and should not be used as the sole basis for treatment or other patient management decisions. This assay was developed by [employer] and [employer] and distributed under an Emergency Use Authorization (EUA) granted by the FDA for the qualitative detection of SARS-CoV-2 nucleic acid. Provider and patient fact sheets can be found at https://www.fda.gov/media/720312/download and https://www.fda.gov/media/240912/download. Test Performed by [facility], [address] [place] [address] Comp Panel with Mg Reflexon 08-27-2020 Calcium [Mass/Vol] 9.4 mg/dL Normal 8.4-10.4 [facility] Comment on above: Performed By: #### C MP3M ####[facility] [id number] [place] [address] ALP [Catalytic activity/Vol] 223 U/L High 38-126 [facility] Comment on above: Performed By: #### C MP3M ####[place] [address] [facility] [place] ALT [Catalytic activity/Vol] 125 U/L High 0-49 [facility] Comment on above: Result Comment: The ALT test is performed by an updated assay method. Please note that the reference intervals have been changed and are now sex specific. Performed By: #### C MP3M ####[place] [address] [facility] [place] Anion gap [Moles/Vol] 7 mmol/L Normal 3-13 [facility] Comment on above: Performed By: #### C MP3M ####[place] [address] [facility] [place] AST [Catalytic activity/Vol] 159 U/L High 15-46 [facility] Comment on above: Performed By: #### C MP3M ####[place] [address] [facility] [place] Bilirubin [Mass/Vol] 10.5 mg/dL High 0.2-1.3 [facility] Comment on above: Performed By: #### C MP3M ####[place] [address] [facility] [place] CO2 [Moles/Vol] 25 mmol/L Normal 22-30 [facility] Comment on above: Performed By: #### C MP3M ####[place] [address] [facility] [place] Glucose [Mass/Vol] 82 mg/dL Normal 70-100 [facility] Comment on above: Performed By: #### C MP3M ####[place] [address] [facility] [place] Protein [Mass/Vol] 6.0 g/dL Low 6.3-8.2 [facility] Comment on above: Performed By: #### C MP3M ####[place] [address] [facility] [place] Urea nitrogen [Mass/Vol] 22 mg/dL High 7-20 [facility] Comment on above: Performed By: #### C MP3M ####[place] [address] [place], [place] Creatinine [Mass/Vol] 0.92 mg/dL Normal 0.52-1.25 [facility] Comment on above: Performed By: #### C MP3M ####[place] [address] [place] [address] GFR/1.73 sq M.predicted among blacks MDRD (S/P/Bld) [Vol rate/Area] mL/min/{1.73_m2} Normal >60 [facility] Comment on above: Performed By: #### C MP3M ####[place] [address] [place], [place] GFR/1.73 sq M.predicted among non-blacks MDRD (S/P/Bld) [Vol rate/Area] 87.5 mL/min/{1.73_m2} Normal >60 [facility] Comment on above: Result Comment: KDIG O guidelines provide the following GFR categories: Stage GFR(ml/min/1.73 m2) Terms G1 >=90 Normal or high G2 60-89 Mildly decreased* G3a 45-59 Mildly to moderately decreased G3b 30-44 Moderately to severely decreased G4 15-29 Severely decreased G5 <15 Kidney failure *Relative to young adult level. In the absence of evidence of kidney damage, neither GFR category G1 nor G2 fulfill the criteria for CKD. The CKD-EPI equation is validated in individuals 18 years of age and older. Currently the best equation for estimating glomerular filtration rate (GFR) from serum creatinine in children is the Bedside Patton equation. It is less accurate in patients with extremes of muscle mass, restriction of dietary protein, ingestion of creatine, extra-renal metabolism of creatinine, or treatment with medications that affect renal tubular creatinine secretion. Performed By: #### C MP3M ####[place] [address] [place], [place] Albumin [Mass/Vol] 3.0 g/dL Low 3.5-5.0 [facility] Comment on above: Performed By: #### C MP3M ####[place] [address] [place], [place] Chloride [Moles/Vol] 109 mmol/L High 98-107 [facility] Comment on above: Performed By: #### C MP3M ####[facility] [place], [place] Potassium [Moles/Vol] 4.3 mmol/L Normal 3.5-5.1 [facility] Comment on above: Performed By: #### C MP3M ####[facility] [place], [place] Sodium [Moles/Vol] 141 mmol/L Normal 135-145 [facility] Comment on above: Performed By: #### C MP3M ####[facility] [place], [place] Comprehensive Metabolic Pane l w/ Reflex to MGOrdered By: Donaldo Jeffers on 08-27-2020 Albumin [Mass/Vol] 3.0 g/dL Low 3.5 - 5.0 g/dL [facility] Work Phone: [phone] ALP (Bld) [Catalytic activity/Vol] 223 U/L High 38 - 126 U/L [facility] Work Phone: [phone] ALT [Catalytic activity/Vol] 125 U/L High 0 - 49 U/L [facility] Work Phone: [phone] Comment on above: The ALT test is perf ormed by an updated assay method. Please note that the reference intervals have been changed and are now sex specific. Anion gap [Moles/Vol] 7 mmol/L 3 - 13 mmol/L [facility] Work Phone: [phone] AST [Catalytic activity/Vol] 159 U/L High 15 - 46 U/L [facility] Work Phone: [phone] Bilirubin [Mass/Vol] 10.5 mg/dL High 0.2 - 1 .3 mg/dL [facility] Work Phone: [phone] Calcium [Mass/Vol] 9.4 mg/dL 8.4 - 10. 4 mg/dL [facility] Work Phone: [phone] Chloride [Moles/Vol] 109 mmol/L High 98 - 10 7 mmol/L [facility] Work Phone: [phone] CO2 [Moles/Vol] 25 mmol/L 22 - 30 mmol/L [facility] Work Phone: [phone] Creatinine [Mass/Vol] 0.92 mg/dL 0.52 - 1.25 mg/dL [facility] Work Phone: [phone] IF NonAfrican [place] 87.5 mL/min >60 [facility] Work Phone: [phone] Comment on above: KDIGO guidelines pro vide the following GFR categories: Stage GFR(ml/min/1.73 m2) Terms G1 >=90 Normal or high G2 60-89 Mildly decreased* G3a 45-59 Mildly to moderately decreased G3b 30-44 Moderately to severely decreased G4 15-29 Severely decreased G5 <15 Kidney failure *Relative to young adult level. In the absence of evidence of kidney damage, neither GFR category G1 nor G2 fulfill the criteria for CKD. The CKD-EPI equation is validated in individuals 18 years of age and older. Currently the best equation for estimating glomerular filtration rate (GFR) from serum creatinine in children is the Bedside Patton equation. It is less accurate in patients with extremes of muscle mass, restriction of dietary protein, ingestion of creatine, extra-renal metabolism of creatinine, or treatment with medications that affect renal tubular creatinine secretion. Free PSA/Total PSA [Mass fraction] 6.0 g/dL Low 6.3 - 8.2 g/dL [facility] Work Phone: [phone] GFR/1.73 sq M.predicted among blacks MDRD (S/P/Bld) [Vol rate/Area] mL/min/{1.73_m2} >60 mL/min [facility] Work Phone: [phone] Glucose [Mass/Vol] 82 mg/dL 70 - 100 mg/dL [facility] Work Phone: [phone] Interpretation and review of laboratory results Abnormal [facility] Work Phone: [phone] Potassium [Moles/Vol] 4.3 mmol/L 3.5 - 5.1 mmol/L [facility] Work Phone: [phone] Sodium [Moles/Vol] 141 mmol/L 135 - 145 mmol/L [facility] Work Phone: [phone] Urea nitrogen (BldV) [Mass/Vol] 22 mg/dL High 7 - 20 mg/dL [facility] Work Phone: Test Performed by [facility], [address] [place] [address] [facility] Work Phone: [id number] 08-27-2020 SARS-CoV-2 (COVID-19) RNA AURY+probe Ql (Unsp spec) SARS-CoV-2 --> Status: F Not Detected. Expected Result: Not Detected _ Real-time, RT-PCR performed on the [employer] System by the [facility] Content[facility] Service Negative results do not preclude SARS-CoV-2 infection and should not be used as the sole basis for treatment or other patient management decisions. This assay was developed by [employer] and distributed under an Emergency Use Authorization (EUA) granted by the FDA for the qualitative detection of SARS-CoV-2 nucleic acid. Provider and patient fact sheets can be found at https://www.fda.gov/media/ 528381/download and https://www.fda.gov/media/ 816966/download. Expected Result: Not Detected _ Real-time, RT-PCR performed on the [employer] System by the [facility] ContentRealtime [facility] Negative results do not preclude SARS-CoV-2 infection and should not be used as the sole basis for treatment or other patient management decisions. This assay was developed by [employer] and distributed under an Emergency Use Authorization (EUA) granted by the FDA for the qualitative detection of SARS-CoV-2 nucleic acid. Provider and patient fact sheets can be found at https://www.fda.gov/media/ 602896/download and https://www.fda.gov/media/ 064252/download. Normal [facility] Comment on above: Performed By: #### C OVID ####[facility] [place] [address] US ABDOMEN LIMITED Specify o rgan? GALLBLADDER, LIVEROrdered By: Albino Lazo on 08-27-2020 Patient Name: JESUS GARRIDO Ultrasound ACCESSION EXAM DATE/TIME PROCEDURE ORDERING PROVIDER [id number] 08/27/2020 10:28 EDT US Abdomen Limited Anahi MurrayALBINO LAZO CPT code 80260 Reason For Exam (US Abdomen Limited) jaundice Report Clinical Information: Jaundice. Prior cholecystectomy. Ultrasound right upper quadrant of abdomen: The examination is limited by poor penetration of sound secondary to bowel gas in the patient's inability to breath-hold. The gallbladder is absent consistent with the surgical history. The common bile duct measures 4.4 mm which is within normal limits. Most of the left lobe of the liver is obscured by shadowing from bowel gas. The visualized liver is unremarkable in size and echogenicity without mass or intrahepatic biliary dilatation. The pancreas is obscured by shadowing from bowel gas. The right kidney is grossly unremarkable in size and echogenicity. There is no hydronephrosis. There is no ascites. IMPRESSION: 1. Limited examination due to poor penetration of sound secondary to bowel gas. 2. Status post cholecystectomy. 3. The left lower liver and pancreas are obscured by shadowing from bowel gas. 4. No significant sonographic abnormality of visualized liver or biliary tree. Report Dictated on --- Final --- Dictated: 08/27/2020 10:35 am Dictating Physician: MD ZEPEDA HARLAN Signed Date and Time: 08/27/2020 10:38 am Signed by: MD ZEPEDA HARLAN Transcribed Date and Time: 08/27/2020 10:35 [facility] Work Phone: Alexei, [facility] Incoming Radiology Results From [facility] - 08/27/2020 10:39 AM EDT [facility]: [id number] Ul[facility]ound ACCESSION EXAM DATE/TIME PROCEDURE ORDERING PROVIDER [id number] 08/27/2020 10:28 EDT US Abdomen Limited Anahi MurrayALBINO LAZO CPT code 30398 Reason For Exam (US Abdomen Limited) jaundice Report Clinical Information: Jaundice. Prior cholecystectomy. Ultrasound right upper quadrant of abdomen: The examination is limited by poor penetration of sound secondary to bowel gas in the patient's inability to breath-hold. The gallbladder is absent consistent with the surgical history. The common bile duct measures 4.4 mm which is within normal limits. Most of the left lobe of the liver is obscured by shadowing from bowel gas. The visualized liver is unremarkable in size and echogenicity without mass or intrahepatic biliary dilatation. The pancreas is obscured by shadowing from bowel gas. The right kidney is grossly unremarkable in size and echogenicity. There is no hydronephrosis. There is no ascites. IMPRESSION: 1. Limited examination due to poor penetration of sound secondary to bowel gas. 2. Status post cholecystectomy. 3. The left lower liver and pancreas are obscured by shadowing from bowel gas. 4. No significant sonographic abnormality of visualized liver or biliary tree. Report Dictated on --- Final --- Dictated: 08/27/2020 10:35 am Dictating Physician: MD ZEPEDA HARLAN Signed Date and Time: 08/27/2020 10:38 am Signed by: MD ZEPEDA HARLAN Transcribed Date and Time: 08/27/2020 10:35 [facility] Work Phone: US Abdomen Limitedon 099 US Abdomen Limited [facility]: [id number] Ultrasound ACCESSION EXAM DATE/TIME PROCEDURE ORDERING PROVIDER [id number] 08/27/2020 10:28 EDT US Abdomen Limited [id number] ALBINO CHIU CPT code 78678 Reason For Exam (US Abdomen Limited) jaundice Report Clinical Information: Jaundice. Prior cholecystectomy. Ultrasound right upper quadrant of abdomen: The examination is limited by poor penetration of sound secondary to bowel gas in the patient's inability to breath-hold. The gallbladder is absent consistent with the surgical history. The common bile duct measures 4.4 mm which is within normal limits. Most of the left lobe of the liver is obscured by shadowing from bowel gas. The visualized liver is unremarkable in size and echogenicity without mass or intrahepatic biliary dilatation. The pancreas is obscured by shadowing from bowel gas. The right kidney is grossly unremarkable in size and echogenicity. There is no hydronephrosis. There is no ascites. IMPRESSION: 1. Limited examination due to poor penetration of sound secondary to bowel gas. 2. Status post cholecystectomy. 3. The left lower liver and pancreas are obscured by shadowing from bowel gas. 4. No significant sonographic abnormality of visualized liver or biliary tree. Report Dictated on Final Dictated: 08/27/2020 10:35 am Dictating Physician: MD ZEPEDA HARLAN Signed Date and Time: 08/27/2020 10:38 am Signed by: MD ZEPEDA HARLAN Transcribed Date and Time: 08/27/2020 10:35 Normal [facility] US DOPPLER ABD/PEL/RETRO/LMT DOrdered By: Albino Lazo on 08-27-2020 Patient Name: JESUS GARRIDO Ultrasound ACCESSION EXAM DATE/TIME PROCEDURE ORDERING PROVIDER [id number] 08/27/2020 10:28 EDT US Art/Vein Abd/Pelvis/ [id number] TAVAREZ Scrotal Complete CPT code 40177 Reason For Exam (US Art/Vein Abd/Pelvis/Scrotal Complete) rule out vascular compromise of the liver worsening juandice concern for obstruction, Report HEPATIC DOPPLER: INDICATION: Jaundice. COMPARISON: None. Hepatic Doppler was performed demonstrating antegrade and patent flow through the portal venous system and splenic vein as well as involving the hepatic venous system and inferior vena cava and the hepatic artery. No structural abnormality was seen involving the liver. No biliary ductal dilatation. IMPRESSION: Normal ultrasound liver Doppler. Report Dictated on --- Final --- Dictated: 08/27/2020 2:20 pm Dictating Physician: DO EPPS ALFRED Signed Date and Time: 08/27/2020 2:21 pm Signed by: DO EPPS ALFRED Transcribed Date and Time: 08/27/2020 2:20 [facility] Work Phone: [facility] Incoming Radiology Results From [facility] - 08/27/2020 2:22 PM EDT Patient Name: JESUS SHAVER Ultrasound ACCESSION EXAM DATE/TIME PROCEDURE ORDERING PROVIDER [id number] 08/27/2020 10:28 EDT US Art/Vein Abd/Pelvis/ [id number] TAVAREZ Scrotal Complete CPT code 10839 Reason For Exam (US Art/Vein Abd/Pelvis/Scrotal Complete) rule out vascular compromise of the liver worsening juandice concern for obstruction, Report HEPATIC DOPPLER: INDICATION: Jaundice. COMPARISON: None. Hepatic Doppler was performed demonstrating antegrade and patent flow through the portal venous system and splenic vein as well as involving the hepatic venous system and inferior vena cava and the hepatic artery. No structural abnormality was seen involving the liver. No biliary ductal dilatation. IMPRESSION: Normal ultrasound liver Doppler. Report Dictated on --- Final --- Dictated: 08/27/2020 2:20 pm Dictating Physician: DO EPPS ALFRED Signed Date and Time: 08/27/2020 2:21 pm Signed by: DO EPPS ALFRED Transcribed Date and Time: 08/27/2020 2:20 [facility] Work Phone: US Liver Doppleron US Liver Doppler Patient [facility]: [id number] Ultrasound ACCESSION EXAM DATE/TIME PROCEDURE ORDERING PROVIDER [id number] 08/27/2020 10:28 EDT US Art/Vein Abd/Pelvis/ [id number] -ALBINO LAZO Scrotal Complete CPT code 83648 Reason For Exam (US Art/Vein Abd/Pelvis/Scrotal Complete) rule out vascular compromise of the liver worsening juandice concern for obstruction, Report HEPATIC DOPPLER: INDICATION: Jaundice. COMPARISON: None. Hepatic Doppler was performed demonstrating antegrade and patent flow through the portal venous system and splenic vein as well as involving the hepatic venous system and inferior vena cava and the hepatic artery. No structural abnormality was seen involving the liver. No biliary ductal dilatation. IMPRESSION: Normal ultrasound liver Doppler. Report Dictated on Final Dictated: 08/27/2020 2:20 pm Dictating Physician: DO EPPS ALFRED Signed Date and Time: 08/27/2020 2:21 pm Signed by: DO EPPS ALFRED Transcribed Date and Time: 08/27/2020 2:20 Normal [facility] APTTon 08-26-2020 aPTT Coag (Bld) [Time] 27.9 s Normal 20.0-30.5 [facility] Comment on above: Result Comment: NOTE : The therapeutic time for Heparin anticoagulation, based on Xa activity inhibition, is an APTT of 46-80 seconds. Performed By: #### A PTT, CMP3M, NH33, PT, BILD3, HEMOG #### [facility] [address] [place] [address] APTTOrdered By: Donaldo Jeffers on 08-26-2020 aPTT Coag (Bld) [Time] 27.9 s 20.0 - 30.5 s [facility] Work Phone: Comment on above: NOTE: The therapeuti c time for Heparin anticoagulation, based on Xa activity inhibition, is an APTT of 46-80 seconds. Add On Lab TestOrdered By: Laurita Lazo on 08-26-2020 Add On Accepted [facility] Work Phone: Comment on above: Specimen available & acceptable for analysis. Test Performed by [facility], [address] [place] [address] Work Phone: Add on test from HISon 08-26 Add on test from HIS Accepted Normal [facility] Comment on above: Result Comment: Spec imen available & acceptable for analysis. Performed By: #### A DDON ####[facility] [place] [address] Ammoniaon 08-26-2020 Ammonia (P) [Mass/Vol] ug/dL Normal 9-30 [facility] Comment on above: Performed By: #### A PTT, CMP3M, NH33, PT, BILD3, HEMOG #### [facility] [address] [place] [address] AmmoniaOrdered By: Donaldo Damon on 08-26-2020 Ammonia (P) [Mass/Vol] ug/dL 9 - 3 0 umol/L [facility] Work Phone: Test Performed by [facility], [address] [place] [id number] [facility] Work Phone: Bilirubin, DirectOrdered By: Donaldo Jeffers on 08-26-2020 Bilirubin.indirect [Mass/Vol] 5.2 mg/dL High 0.0 - 0.3 mg/dL [employer] Work Phone: [phone] Interpretation and review of laboratory results Abnormal [facility] Work Phone: 1 Test Performed by [facility], [address] [place] [address] [facility] Work Phone: 1) Bilirubin,Directon Bilirubin.indirect [Mass/Vol] 5.2 mg/dL High 0.0-0.[address] [facility] [employer] Comment on above: Performed By: #### A PTT, CMP3M, NH33, PT, BILD3, HEMOG ####[facility] [place] [address] CBCOrdered By: Donaldo thomas 08-26-2020 Hematocrit (Bld) [Volume fraction] 36.5 % Low 40.0 - 52.0 % [facility] Work Phone: 1 Hemoglobin.gastrointes tinal spec 1 Ql (Stl) 12.7 g/dL Low 13.0 - 18.0 g/dL [employer] Work Phone: [phone]) Interpretation and review of laboratory results Abnormal [facility] Work Phone: 1() MCH (RBC) [Entitic mass] 34.1 pg High 26.0 - 34.0 pg [employer] Work Phone: 1) MCHC (RBC) [Mass/Vol] 34.8 % 32.0 - 36.0 % [facility] Work Phone: MCV (RBC) [Entitic vol] 98.0 fL 80.0 - 98.0 fL [employer] Work Phone: 1() Platelet distribution width (Bld) [Ratio] 14.8 % High 11.5 - 14.5 % [facility] Work Phone: Platelet mean volume (Bld) [Entitic vol] 10.2 fL 7.4 - 10.4 fL [employer] Work Phone: 1 Platelets (Bld) [#/Vol] 70 10*3/uL Low 140 - 440 10*3/uL [employer] Work Phone: RBC (Bld) [#/Vol] 3.73 10*6/uL Low 4.40 - 5.9 0 10*6/uL [facility] Work Phone: [phone] WBC (Bld) [#/Vol] 6.8 10*3/uL 3.6 - 10.7 10*3/uL [facility] Work Phone: Test Performed by [facility], [address] [place] [id number] [place] [address] Work Phone: CR Abdomen APon 08-26-2020 CR Abdomen AP Patient Name: JESUS GARRIDO Diagnostic Radiology ACCESSION EXAM DATE/TIME PROCEDURE ORDERING PROVIDER [id number] 08/26/2020 14:21 EDT CR Abdomen AP [id number] ALBINO CHIU CPT code 28180 Reason For Exam (CR Abdomen AP) MrI rule out Report Abdomen: 08/26/2020. Clinical Information: Pre-MRI. Findings: A single supine view of the abdomen reveals a nonspecific nonobstructive bowel gas pattern. There is no evidence of organomegaly. No abnormal calcifications are seen. The visualized bony structures are intact. No battery packs or pacemaker wires are identified in the [id number]. Impression: Non specific radiographs of the abdomen. Report Dictated on Final Dictated: 08/26/2020 2:23 pm Dictating Physician: MD PHILIP RISA Signed Date and Time: 08/26/2020 2:40 pm Signed by: MD PHILIP RISA Transcribed Date and Time: 08/26/2020 2:23 Normal [facility] CR Chest 1 View Frontalon CR Chest 1 View Frontal Patient Name: JESUS SHAVER Diagnostic Radiology ACCESSION EXAM DATE/TIME PROCEDURE ORDERING PROVIDER [id number] 08/26/2020 14:21 EDT CR Chest 1 View Frontal [id number] ALBINO CHIU CPT code 49694 Reason For Exam (CR Chest 1 View Frontal) MRI rule out Report Portable chest 08/26/2020: Clinical Information: Pre-MRI. Findings: A single AP portable view of the chest was obtained at 1355 hours. No prior studies for comparison. A battery pack is present superimposed over the aortic knob with the leads extending toward the left neck. Correlate with clinical history as to the nature of this device. The trachea is midline. The heart is not enlarged. No focal areas of consolidation or volume loss are seen. There are no pleural effusions. The pulmonary vasculature does not appear congested. The visualized bony structures are intact. Report Dictated on Final Dictated: 08/26/2020 2:43 pm Dictating Physician: MD PHILIP RISA Signed Date and Time: 08/26/2020 2:44 pm Signed by: MD PHILIP RISA Transcribed Date and Time: 08/26/2020 2:43 Normal [facility] CR Foreign Body Loc Eye Bila evelio 08-26-2020 CR Foreign Body Loc Eye Bilateral Patient Name: JESUS SHAVER Diagnostic Radiology ACCESSION EXAM DATE/TIME PROCEDURE ORDERING PROVIDER [id number] 08/26/2020 14:21 EDT CR Foreign Body Loc Eye [id number] -ALBINO LAZO Bilateral CPT code 00397 Reason For Exam (CR Foreign Body Loc Eye Bilateral) MRI rule out Report Clinical Information: Foreign body . 2 views of the orbits reveal no evidence of orbital emphysema. The paranasal sinuses are well aerated without mucosal thickening or air-fluid levels. No fracture is identified. The stimulator wires are identified in the soft tissues of the left neck. No radiopaque foreign bodies are identified in the region of the orbits. Report Dictated on Final Dictated: 08/26/2020 2:52 pm Dictating Physician: MD PHILIP RISA Signed Date and Time: 08/26/2020 2:52 pm Signed by: MD PHILIP RISA Transcribed Date and Time: 08/26/2020 2:52 Normal [facility] Comp Panel with Mg Reflexon 08-26-2020 ALP [Catalytic activity/Vol] 189 U/L High 38-126 [facility] Comment on above: Result Comment: Slig htly hemolysed, interpret with caution. Performed By: #### A PTT, CMP3M, NH33, PT, BILD3, HEMOG ####[facility] [place], [place] ALT [Catalytic activity/Vol] 134 U/L High 0-49 [facility] Comment on above: Result Comment: The ALT test is performed by an updated assay method. Please note that the reference intervals have been changed and are now sex specific. Performed By: #### A PTT, CMP3M, NH33, PT, BILD3, HEMOG ####[place] [address] [place], [place] Calcium [Mass/Vol] 8.9 mg/dL Normal 8.4-10.4 [facility] Comment on above: Performed By: #### A PTT, CMP3M, NH33, PT, BILD3, HEMOG ####[place] [address] [place], [place] Glucose [Mass/Vol] 100 mg/dL Normal 70-100 [facility] Comment on above: Performed By: #### A PTT, CMP3M, NH33, PT, BILD3, HEMOG ####[place] [address] [place], [place] Urea nitrogen [Mass/Vol] 23 mg/dL High 7-20 [facility] Comment on above: Performed By: #### A PTT, CMP3M, NH33, PT, BILD3, HEMOG ####[place] [address] [place], [place] Anion gap [Moles/Vol] 8 mmol/L Normal 3-13 [facility] Comment on above: Performed By: #### A PTT, CMP3M, NH33, PT, BILD3, HEMOG ####[place] [address] [place], [place] AST [Catalytic activity/Vol] 169 U/L High 15-46 [facility] Comment on above: Result Comment: Slig htly hemolysed, interpret with caution. Performed By: #### A PTT, CMP3M, NH33, PT, BILD3, HEMOG ####[place] [address] [place], [place] Bilirubin [Mass/Vol] 8.6 mg/dL High 0.2-1.3 [facility] Comment on above: Performed By: #### A PTT, CMP3M, NH33, PT, BILD3, HEMOG ####[place] [address] [place], [place] CO2 [Moles/Vol] 26 mmol/L Normal 22-30 [facility] Comment on above: Performed By: #### A PTT, CMP3M, NH33, PT, BILD3, HEMOG ####[place] [address] [place], [place] Creatinine [Mass/Vol] 0.83 mg/dL Normal 0.52-1.25 [facility] Comment on above: Performed By: #### A PTT, CMP3M, NH33, PT, BILD3, HEMOG ####[place] [address] [place], [place] eGFR OTHER > 90.0 Normal >60 [facility] Comment on above: Result Comment: KDIG O guidelines provide the following GFR categories: Stage GFR(ml/min/1.73 m2) Terms G1 >=90 Normal or high G2 60-89 Mildly decreased* G3a 45-59 Mildly to moderately decreased G3b 30-44 Moderately to severely decreased G4 15-29 Severely decreased G5 <15 Kidney failure *Relative to young adult level. In the absence of evidence of kidney damage, neither GFR category G1 nor G2 fulfill the criteria for CKD. The CKD-EPI equation is validated in individuals 18 years of age and older. Currently the best equation for estimating glomerular filtration rate (GFR) from serum creatinine in children is the Bedside Patton equation. It is less accurate in patients with extremes of muscle mass, restriction of dietary protein, ingestion of creatine, extra-renal metabolism of creatinine, or treatment with medications that affect renal tubular creatinine secretion. Performed By: #### A PTT, CMP3M, NH33, PT, BILD3, HEMOG ####[place] [address] [place], [place] GFR/1.73 sq M.predicted among blacks MDRD (S/P/Bld) [Vol rate/Area] mL/min/{1.73_m2} Normal >60 [facility] Comment on above: Performed By: #### A PTT, CMP3M, NH33, PT, BILD3, HEMOG ####[place] [address] [place], [place] Protein [Mass/Vol] 6.5 g/dL Normal 6.3-8.2 [facility] Comment on above: Performed By: #### A PTT, CMP3M, NH33, PT, BILD3, HEMOG ####[place] [address] [place], [place] Potassium [Moles/Vol] 3.7 mmol/L Normal 3.5-5.1 [facility] Comment on above: Result Comment: Slig htly hemolysed, interpret with caution. Performed By: #### A PTT, CMP3M, NH33, PT, BILD3, HEMOG ####[place] [address] [place], [place] Sodium [Moles/Vol] 139 mmol/L Normal 135-145 [facility] Comment on above: Performed By: #### A PTT, CMP3M, NH33, PT, BILD3, HEMOG ####[place] [address] [place], [place] Albumin [Mass/Vol] 3.2 g/dL Low 3.5-5.0 [facility] Comment on above: Performed By: #### A PTT, CMP3M, NH33, PT, BILD3, HEMOG ####[place] [address] [place], [place] Chloride [Moles/Vol] 105 mmol/L Normal 98-107 [facility] Comment on above: Performed By: #### A PTT, CMP3M, NH33, PT, BILD3, HEMOG ####[place] [address] [place], [place] Comprehensive Metabolic Pane l w/ Reflex to MGOrdered By: Donaldo Jeffers on 08-26-2020 Albumin [Mass/Vol] 3.2 g/dL Low 3.5 - 5.0 g/dL [facility] Work Phone: [phone] ALP (Bld) [Catalytic activity/Vol] 189 U/L High 38 - 126 U/L [employer] Work Phone: [phone] Comment on above: Slightly hemolysed, interpret with caution. ALT [Catalytic activity/Vol] 134 U/L High 0 - 49 U/L [employer] Work Phone: [phone] Comment on above: The ALT test is perf ormed by an updated assay method. Please note that the reference intervals have been changed and are now sex specific. Anion gap [Moles/Vol] 8 mmol/L 3 - 13 mmol/L [employer] Work Phone: [phone] AST [Catalytic activity/Vol] 169 U/L High 15 - 46 U/L [employer] Work Phone: [phone] Comment on above: Slightly hemolysed, interpret with caution. Bilirubin [Mass/Vol] 8.6 mg/dL High 0.2 - 1 .3 mg/dL [employer] Work Phone: [phone] Calcium [Mass/Vol] 8.9 mg/dL 8.4 - 10. 4 mg/dL [employer] Work Phone: [phone] Chloride [Moles/Vol] 105 mmol/L 98 - 10 7 mmol/L [employer] Work Phone: [phone] CO2 [Moles/Vol] 26 mmol/L 22 - 30 mmol/L [employer] Work Phone: [phone] Creatinine [Mass/Vol] 0.83 mg/dL 0.52 - 1.25 mg/dL [employer] Work Phone: [phone] EGFR IF NonAfrican [place]an >90.0 >60 mL/min [employer] Work Phone: [phone] Comment on above: KDIGO guidelines pro vide the following GFR categories: Stage GFR(ml/min/1.73 m2) Terms G1 >=90 Normal or high G2 60-89 Mildly decreased* G3a 45-59 Mildly to moderately decreased G3b 30-44 Moderately to severely decreased G4 15-29 Severely decreased G5 <15 Kidney failure *Relative to young adult level. In the absence of evidence of kidney damage, neither GFR category G1 nor G2 fulfill the criteria for CKD. The CKD-EPI equation is validated in individuals 18 years of age and older. Currently the best equation for estimating glomerular filtration rate (GFR) from serum creatinine in children is the Bedside Patton equation. It is less accurate in patients with extremes of muscle mass, restriction of dietary protein, ingestion of creatine, extra-renal metabolism of creatinine, or treatment with medications that affect renal tubular creatinine secretion. Free PSA/Total PSA [Mass fraction] 6.5 g/dL 6.3 - 8.2 g/dL [facility] Work Phone: GFR/1.73 sq M.predicted among blacks MDRD (S/P/Bld) [Vol rate/Area] mL/min/{1.73_m2} >60 mL/min [facility] Work Phone: Glucose [Mass/Vol] 100 mg/dL 70 - 100 mg/dL [facility] Work Phone: Interpretation and review of laboratory results Abnormal [facility] Work Phone: Potassium [Moles/Vol] 3.7 mmol/L 3.5 - 5.1 mmol/L [facility] Work Phone: Comment on above: Slightly hemolysed, interpret with caution. Sodium [Moles/Vol] 139 mmol/L 135 - 145 mmol/L [facility] Work Phone: Urea nitrogen (BldV) [Mass/Vol] 23 mg/dL High 7 - 20 mg/dL [facility] Work Phone: Test Performed by [facility], [address] [place] [id number] [facility] Work Phone: Hemogramon 08-26-2020 Erythrocyte distribution width (RBC) [Ratio] 14.8 % High 11.5-14.5 [facility] Comment on above: Performed By: #### A PTT, CMP3M, NH33, PT, BILD3, HEMOG #### [facility] [address] [place] [phone] Hematocrit (Bld) [Volume fraction] 36.5 % Low 40.0-52.0 [facility] Comment on above: Performed By: #### A PTT, CMP3M, NH33, PT, BILD3, HEMOG #### [place] [address] [place], [place] Hemoglobin (Bld) [Mass/Vol] 12.7 g/dL Low 13.0-18.0 [facility] Comment on above: Performed By: #### A PTT, CMP3M, NH33, PT, BILD3, HEMOG #### [place] [address] [place], [place] MCH (RBC) [Entitic mass] 34.1 pg High 26.0-34.0 [facility] Comment on above: Performed By: #### A PTT, CMP3M, NH33, PT, BILD3, HEMOG #### [place] [address] [place], [place] MCHC 34.8 % Normal 32.0-36.0 [facility] Comment on above: Performed By: #### A PTT, CMP3M, NH33, PT, BILD3, HEMOG #### [place] [address] [place], [place] MCV (RBC) [Entitic vol] 98.0 fL Normal 80.0-98.0 [facility] Comment on above: Performed By: #### A PTT, CMP3M, NH33, PT, BILD3, HEMOG #### [place] [address] [place], [place] Platelet mean volume (Bld) [Entitic vol] 10.2 fL Normal 7.4-10.4 [facility] Comment on above: Performed By: #### A PTT, CMP3M, NH33, PT, BILD3, HEMOG #### [place] [address] [place], [place] Platelets (Bld) [#/Vol] 70 10*3/uL Low 140-440 [facility] Comment on above: Performed By: #### A PTT, CMP3M, NH33, PT, BILD3, HEMOG #### [place] [address] [place], [place] RBC (Bld) [#/Vol] 3.73 10*6/uL Low 4.40-5.90 [facility] Comment on above: Performed By: #### A PTT, CMP3M, NH33, PT, BILD3, HEMOG #### [address] WBC (Bld) [#/Vol] 6.8 10*3/uL Normal 3.6-10.7 [facility] Comment on above: Performed By: #### A PTT, CMP3M, NH33, PT, BILD3, HEMOG #### [place] [address] [place], [place] No Panel InformationOrdered By: Donaldo Jeffers on 08-26-2020 Test Performed by [facility], [address] [place] [address] [facility] Work Phone: Prothrombin Timeon INR 1.1 Normal 0.9-1.1 [facility] Comment on above: Result Comment: Dougals mmended Anticoagulant Therapy: SEE BELOW ----- INR of 2.0 - 3.0 : - Prophylaxis of Venous Thrombosis (high-risk surgery) - Treatment of Venous Thrombosis - Treatment of Pulmonary Embolism (Includes tissue heart valves, Acute Myocardial Infarction to prevent systemic embolism, Valvular Heart Disease, and Atrial Fibrillation) ----- INR of 2.5 - 3.5 : - Mechanical Prosthetic Valves (high risk) - If oral anticoagulant therapy is used to prevent Myocardial Infarction Performed By: #### A PTT, CMP3M, NH33, PT, BILD3, HEMOG #### [place] [address] [place], [place] PT Coag (PPP) [Time] 12.1 s High 9.0-12.0 [facility] Comment on above: Result Comment: . Performed By: #### A PTT, CMP3M, NH33, PT, BILD3, HEMOG #### [address] Protime-INROrdered By: Anu Jeffers on 08-26-2020 INR Coag (Bld) [Relative time] 1.1 {INR} [facility] Work Phone: Comment on above: Recommended Anticoag ulant Therapy: SEE BELOW ----- INR of 2.0 - 3.0 : - Prophylaxis of Venous Thrombosis (high-risk surgery) - Treatment of Venous Thrombosis - Treatment of Pulmonary Embolism (Includes tissue heart valves, Acute Myocardial Infarction to prevent systemic embolism, Valvular Heart Disease, and Atrial Fibrillation) ----- INR of 2.5 - 3.5 : - Mechanical Prosthetic Valves (high risk) - If oral anticoagulant therapy is used to prevent Myocardial Infarction Interpretation and review of laboratory results Abnormal [facility] Work Phone: PT Coag (PPP) [Time] 12.1 s High 9.0 - 1 2.0 s [facility] Work Phone: Comment on above: . XR ABDOMEN (KUB) (SINGLE AP VIEW)Ordered By: Albino Lazo on 08-26-2020 Patient Name: JESUS GARRIDO Diagnostic Radiology ACCESSION EXAM DATE/TIME PROCEDURE ORDERING PROVIDER [id number] 08/26/2020 14:21 EDT CR Abdomen AP [id number] -ALBINO LAZO CPT code 00596 Reason For Exam (CR Abdomen AP) MrI rule out Report Abdomen: 08/26/2020. Clinical Information: Pre-MRI. Findings: A single supine view of the abdomen reveals a nonspecific nonobstructive bowel gas pattern. There is no evidence of organomegaly. No abnormal calcifications are seen. The visualized bony structures are intact. No battery packs or pacemaker wires are identified in the [id number]. Impression: Non specific radiographs of the abdomen. Report Dictated on --- Final --- Dictated: 08/26/2020 2:23 pm Dictating Physician: MD PHILIP RISA Signed Date and Time: 08/26/2020 2:40 pm Signed by: MD PHILIP RISA Transcribed Date and Time: 08/26/2020 2:23 [facility] Work Phone: Alex[facility], [facility] Incoming Rad[facility] Results From [facility] - 08/26/2020 2:41 PM EDT Patient Name: JESUS SHAVER Diagnostic Radiology ACCESSION EXAM DATE/TIME PROCEDURE ORDERING PROVIDER [id number] 08/26/2020 14:21 EDT CR Abdomen AP [id number] ALBINO CHIU CPT code 85441 Reason For Exam (CR Abdomen AP) MrI rule out Report Abdomen: 08/26/2020. Clinical Information: Pre-MRI. Findings: A single supine view of the abdomen reveals a nonspecific nonobstructive bowel gas pattern. There is no evidence of organomegaly. No abnormal calcifications are seen. The visualized bony structures are intact. No battery packs or pacemaker wires are identified in the [id number]. Impression: Non specific radiographs of the abdomen. Report Dictated on --- Final --- Dictated: 08/26/2020 2:23 pm Dictating Physician: MD PHILIP RISA Signed Date and Time: 08/26/2020 2:40 pm Signed by: MD PHILIP RISA Transcribed Date and Time: 08/26/2020 2:23 [facility] Work Phone: XR CHEST 1 VWOrdered By: Cortney Lazo on 08-26-2020 Patient Name: JESUS GARRIDO Diagnostic Radiology ACCESSION EXAM DATE/TIME PROCEDURE ORDERING PROVIDER [id number] 08/26/2020 14:21 EDT CR Chest 1 View Frontal [id number] ALBINO CHIU CPT code 74940 Reason For Exam (CR Chest 1 View Frontal) MRI rule out Report Portable chest 08/26/2020: Clinical Information: Pre-MRI. Findings: A single AP portable view of the chest was obtained at 1355 hours. No prior studies for comparison. A battery pack is present superimposed over the aortic knob with the leads extending toward the left neck. Correlate with clinical history as to the nature of this device. The trachea is midline. The heart is not enlarged. No focal areas of consolidation or volume loss are seen. There are no pleural effusions. The pulmonary vasculature does not appear congested. The visualized bony structures are intact. Report Dictated on --- Final --- Dictated: 08/26/2020 2:43 pm Dictating Physician: MD PHILIP RISA Signed Date and Time: 08/26/2020 2:44 pm Signed by: MD PHILIP RISA Transcribed Date and Time: 08/26/2020 2:43 [facility] Work Phone: [facility] From [facility] - 08/26/2020 2:45 PM EDT Patient Name: JESUS SHAVER Diagnostic Radiology ACCESSION EXAM DATE/TIME PROCEDURE ORDERING PROVIDER [id number] 08/26/2020 14:21 EDT CR Chest 1 View Frontal [id number] NUNEZ CPT code 55349 Reason For Exam (CR Chest 1 View Frontal) MRI rule out Report Portable chest 08/26/2020: Clinical Information: Pre-MRI. Findings: A single AP portable view of the chest was obtained at 1355 hours. No prior studies for comparison. A battery pack is present superimposed over the aortic knob with the leads extending toward the left neck. Correlate with clinical history as to the nature of this device. The trachea is midline. The heart is not enlarged. No focal areas of consolidation or volume loss are seen. There are no pleural effusions. The pulmonary vasculature does not appear congested. The visualized bony structures are intact. Report Dictated on --- Final --- Dictated: 08/26/2020 2:43 pm Dictating Physician: MD PHILIP RISA Signed Date and Time: 08/26/2020 2:44 pm Signed by: MD PHILIP RISA Transcribed Date and Time: 08/26/2020 2:43 [facility] Work Phone: XR EYE FOREIGN BODYOrdered B y: Albino Lazo on 08-26-2020 Patient Name: JESUS GARRIDO Diagnostic Radiology ACCESSION EXAM DATE/TIME PROCEDURE ORDERING PROVIDER [id number] 08/26/2020 14:21 EDT CR Foreign Body Loc Eye [id number] ALBINO CHIU Bilateral CPT code 65932 Reason For Exam (CR Foreign Body Loc Eye Bilateral) MRI rule out Report Clinical Information: Foreign body . 2 views of the orbits reveal no evidence of orbital emphysema. The paranasal sinuses are well aerated without mucosal thickening or air-fluid levels. No fracture is identified. The stimulator wires are identified in the soft tissues of the left neck. No radiopaque foreign bodies are identified in the region of the orbits. Report Dictated on --- Final --- Dictated: 08/26/2020 2:52 pm Dictating Physician: MD PHILIP RISA Signed Date and Time: 08/26/2020 2:52 pm Signed by: MD PHILIP RISA Transcribed Date and Time: 08/26/2020 2:52 [facility] Work Phone: [facility], [facility] Incoming Radiology Results From [facility] - 08/26/2020 2:53 PM EDT Patient Name: JESUS SHAVER Diagnostic Radiology ACCESSION EXAM DATE/TIME PROCEDURE ORDERING PROVIDER [id number] 08/26/2020 14:21 EDT CR Foreign Body Loc Eye [id number] -ALBINO LAZO Bilateral CPT code 89843 Reason For Exam (CR Foreign Body Loc Eye Bilateral) MRI rule out Report Clinical Information: Foreign body . 2 views of the orbits reveal no evidence of orbital emphysema. The paranasal sinuses are well aerated without mucosal thickening or air-fluid levels. No fracture is identified. The stimulator wires are identified in the soft tissues of the left neck. No radiopaque foreign bodies are identified in the region of the orbits. Report Dictated on --- Final --- Dictated: 08/26/2020 2:52 pm Dictating Physician: MD PHILIP RISA Signed Date and Time: 08/26/2020 2:52 pm Signed by: MD PHILIP RISA Transcribed Date and Time: 08/26/2020 2:52 [facility] Telephone ([facility]) -- JESUS SHAVER ([id number]) 1955 M Date Time Provider Department 08/24/20 JESUS MILLS During your visit today, we recorded the following information about you: Pat Rodriguez LPN 08/24/2020 1:39 PM Signed Epifanio was c/o stomach ache at [facility] this am, he was refusing to eat lunch. Epifanio was picked up, he has been home for 30 minutes, has eaten lunch, did has something to drink, had a mouna bm, T98.3, states he feels fine. Concerned because the sclera looks jaundiced, he has dark urine. Questions if he needs to be seen in the office or ER to b evaluated. Please advise. Pat Mills MD 08/24/2020 2:41 PM Signed If no current symptoms now, can check labs and urine. If recurrent abd pain or vomiting, to ER Justina Reardon LPN 08/24/2020 5:03 PM Signed Nurse Venecia @ [place] notified Justina Reardon LPN Allergies As of Date: 08/24/2020 Noted Allergy Reaction KEPPRA (LEVETIRACETAM) 05/14/2015 14 - Other: See Comments Comments: Increased seizures VICKS VAPORUB ([id number]*2015 2 - Rash Date Reviewed: 02/21/2019 Reviewed by: Minerva Castillo - Fully Assessed Reason for Visit: Patient Update [1234] Primary Visit Diagnosis:Nausea [R11.0] Other Visit Diagnosis:Dark urine [R82.998] Order(s):CBC + DIFF [SQCBCDIF] Order #: [id number] FUTURE COMP METABOLIC PANEL [SQCMP] Order #: [id number] FUTURE URINALYSIS, WITH MICROSCOPIC [SQUAWMIC] Order #: [id number] FUTURE URINE CULTURE [SQURCUL] Order #: [id number] FUTURE Prescriptions as of 08/24/2020 Sig: CERTAVITE-ANTIOXIDANT 18 MG-4* Take 1 tablet by mouth once d* CALCIUM CARBONATE 500 MG (1,2* TAKE (1) TABLET BY MOUTH TWIC* POLYETHYLENE GLYCOL 3350 17 G* Take 1 Packet by mouth once d* DIVALPROEX 500 MG TABLET,MARVA* Take 3 tablets by mouth daily* LAMOTRIGINE ER 100 MG TABLET,* Take 1 tablet by mouth once d* SENNOSIDES 8.6 MG TABLET Take 1 tablet by mouth twice * PYRIDOXINE (VITAMIN B6) 100 M* Take 1 tablet by mouth once d* ZONISAMIDE 100 MG CAPSULE Take 1 capsule by mouth twice* ACETAMINOPHEN 650 MG RECTAL S* 1 Suppository by RECTAL route* ACETAMINOPHEN 325 MG TABLET Take 2 tablets by mouth every* BISACODYL 10 MG RECTAL SUPPOS* 1 Suppository by RECTAL route* MAGNESIUM HYDROXIDE 400 MG/5 * Take 15 mL by mouth once donya* TAMSULOSIN 0.4 MG CAPSULE Take 1 capsule by mouth daily* COMPOUNDED PRESCRIPTION Wheelchair with seat belt COMPOUNDED PRESCRIPTION [place] Problem List As Of Date 08/24/2020 Noted Resolved Seizure disorder (HCC) [G40.909] 12/28/2015 Screen for colon cancer [Z12.11] 01/02/2018 03/26/2018 Gallbladder polyp [K82.4] 03/13/2018 Ataxia [R27.0] 06/16/2020 Development delay [R62.50] 06/16/2020 Encounter Status:Closed by JUSTINA REARDON LPN [facility] 08/24/[facility] JESUS [facility]AV[facility] ([id number]) 1955 M Date Time Provider Department 08/24/20 JESUS MILLS During your visit today, we recorded the following information about you: Cleveland Mcgowan RN 08/24/2020 1:34 PM Signed [facility]- reporting POC: patient will be skilled daily for medication administration, and will continue to monitor for 60 days. Will send POC to pcp. Jesus Mills MD 08/24/2020 2:37 PM Signed noted Allergies As of Date: 08/24/2020 Noted Allergy Reaction KEPPRA (LEVETIRACETAM) 05/14/2015 14 - Other: See Comments Comments: Increased seizures VICKS VAPORUB ([id number]*2015 2 - Rash Date Reviewed: 02/21/2019 Reviewed by: Minerva Castillo - Fully Assessed Reason for Visit: [facility]: POC [Other] Prescriptions as of 08/24/2020 Sig: CERTAVITE-ANTIOXIDANT 18 MG-4* Take 1 tablet by mouth once d* CALCIUM CARBONATE 500 MG (1,2* TAKE (1) TABLET BY MOUTH TWIC* POLYETHYLENE GLYCOL 3350 17 G* Take 1 Packet by mouth once d* DIVALPROEX 500 MG TABLET,MARVA* Take 3 tablets by mouth daily* LAMOTRIGINE ER 100 MG TABLET,* Take 1 tablet by mouth once d* SENNOSIDES 8.6 MG TABLET Take 1 tablet by mouth twice * PYRIDOXINE (VITAMIN B6) 100 M* Take 1 tablet by mouth once d* ZONISAMIDE 100 MG CAPSULE Take 1 capsule by mouth twice* ACETAMINOPHEN 650 MG RECTAL S* 1 Suppository by RECTAL route* ACETAMINOPHEN 325 MG TABLET Take 2 tablets by mouth every* BISACODYL 10 MG RECTAL SUPPOS* 1 Suppository by RECTAL route* MAGNESIUM HYDROXIDE 400 MG/5 * Take 15 mL by mouth once donya* TAMSULOSIN 0.4 MG CAPSULE Take 1 capsule by mouth daily* COMPOUNDED PRESCRIPTION Wheelchair with seat belt COMPOUNDED PRESCRIPTION [place] Problem List As Of Date 08/24/2020 Noted Resolved Seizure disorder (HCC) [G40.909] 12/28/2015 Screen for colon cancer [Z12.11] 01/02/2018 03/26/2018 Gallbladder polyp [K82.4] 03/13/2018 Ataxia [R27.0] 06/16/2020 Development delay [R62.50] 06/16/2020 Encounter Status:Closed by JESUS MILLS on 08/24/20 [facility] OBSOLETEon 08-19-2020 OBSOLETE Refill (FAMPWS) -- JESUS SHAVER ([id number]) 1955 M Date Time Provider Department 08/19/20 JESUS MILLS During your visit today, we recorded the following information about you: Tayler Melania Pss 08/19/2020 11:29 AM Signed Patient's request for medication is as follows: Pending Prescriptions Disp Refills CERTAVITE-ANTIOXIDANT 18 MG-400 MCG TABLET 30 tablet 5 Sig: Take 1 tablet by mouth once daily. SHAZIA: No CALCIUM CARBONATE 500 MG (1,250 MG)-VITAMIN D3 200 UNIT TABLET 60 tablet 5 Sig: TAKE (1) TABLET BY MOUTH TWICE A DAY. SHAZIA: No Prescription(s) as above. Please process accordingly. Tayler Velázquez Pss Vera Delgado LPN 08/19/2020 2:31 PM Signed Last refills 03/09/20 Qty: x 6 months Last ov 06/16/20 No appt scheduled Vera Delgado LPN Allergies As of Date: 08/19/2020 Noted Allergy Reaction KEPPRA (LEVETIRACETAM) 05/14/2015 14 - Other: See Comments Comments: Increased seizures VICKS VAPORUB (GFXOV-[id number]*2015 2 - Rash Date Reviewed: 02/21/2019 Reviewed by: Minerva Castillo - Fully Assessed Reason for Visit: Refill Request [94] Order(s):multivitamin-ferr ous fumarate-folic acid (CERTAVITE-ANTIOXIDANT)Rodger e 1 tablet by mouth once daily.Disp: 30 tabletRfl: 5 oqgmcsb-gapfiburp-kxndans D3 ([place] CALCIUM-VITAMIN D) 500 mg(1,250mg) -200 unit per tabletTAKE (1) TABLET BY MOUTH TWICE A DAY.Disp: 60 tabletRfl: 5 Prescriptions as of 08/19/2020 Sig: CERTAVITE-ANTIOXIDANT 18 MG-4* Take 1 tablet by mouth once d* CALCIUM CARBONATE 500 MG (1,2* TAKE (1) TABLET BY MOUTH TWIC* POLYETHYLENE GLYCOL 3350 17 G* Take 1 Packet by mouth once d* DIVALPROEX 500 MG TABLET,MARVA* Take 3 tablets by mouth daily* LAMOTRIGINE ER 100 MG TABLET,* Take 1 tablet by mouth once d* SENNOSIDES 8.6 MG TABLET Take 1 tablet by mouth twice * PYRIDOXINE (VITAMIN B6) 100 M* Take 1 tablet by mouth once d* ZONISAMIDE 100 MG CAPSULE Take 1 capsule by mouth twice* ACETAMINOPHEN 650 MG RECTAL S* 1 Suppository by RECTAL route* ACETAMINOPHEN 325 MG TABLET Take 2 tablets by mouth every* BISACODYL 10 MG RECTAL SUPPOS* 1 Suppository by RECTAL route* MAGNESIUM HYDROXIDE 400 MG/5 * Take 15 mL by mouth once donya* TAMSULOSIN 0.4 MG CAPSULE Take 1 capsule by mouth daily* COMPOUNDED PRESCRIPTION Wheelchair with seat belt COMPOUNDED PRESCRIPTION [place] Problem List As Of Date 08/19/2020 Noted Resolved Seizure disorder (HCC) [G40.909] 12/28/2015 Screen for colon cancer [Z12.11] 01/02/2018 03/26/2018 Gallbladder polyp [K82.4] 03/13/2018 Ataxia [R27.0] 06/16/2020 Development delay [R62.50] 06/16/2020 Prescriptions ordered this encounter Disp Refills Start End CERTAVITE-ANTIOXIDANT 18 MG-400 MCG * 30 t* 5 08/19/2020 Route: ORAL Sig: Take 1 tablet by mouth once daily. CALCIUM CARBONATE 500 MG (1,250 MG)-* 60 t* 5 08/19/2020 Sig: TAKE (1) TABLET BY MOUTH TWICE A DAY. Medications Discontinued During This Encounter Prescriptions - multivitamin-ferrous fumarate-folic acid (CERTAVITE-ANTIOXIDANT) (Discontinued) Take 1 tablet by mouth once daily. - cwwnuqo-dmhubrdyj-pjpoixp D3 (OYSTER SHELL CALCIUM-VITAMIN D) 500 mg(1,250mg) -200 unit per tablet (Discontinued) TAKE (1) TABLET BY MOUTH TWICE A DAY. Encounter Status:Closed by JESUS MILLS on 08/19/20 [facility] OBSOLETEon 08-02-2020 OBSOLETE Refill (FAMPWS) -- JESUS SHAVER ([id number]) 1955 M Date Time Provider Department 08/02/20 JESUS MILLS During your visit today, we recorded the following information about you: Mignon Zarco Pss 08/02/2020 3:53 PM Signed Patient has been identified by name and date of : Yes Pending Prescriptions Disp Refills POLYETHYLENE GLYCOL 3350 17 GRAM ORAL POWDER PACKET 30 Packet 2 Sig: Take 1 Packet by mouth once daily. SHAZIA: No RX INSTRUCTIONS: Patient aware RX will be sent to pharmacy. No need to notify patient. Mignon Zarco Pss Allergies As of Date: 08/02/2020 Noted Allergy Reaction KEPPRA (LEVETIRACETAM) 05/14/2015 14 - Other: See Comments Comments: Increased seizures VICKS VAPORUB ([id number]-[id number]*2015 2 - Rash Date Reviewed: 02/21/2019 Reviewed by: Minerva Castillo - Fully Assessed Reason for Visit: Refill Request [94] Order(s):polyethylene glycol 3350 (GAVILAX) 17 gram packetTake 1 Packet by mouth once daily.Disp: 30 PacketRfl: 2 Prescriptions as of 08/02/2020 Sig: POLYETHYLENE GLYCOL 3350 17 G* Take 1 Packet by mouth once d* DIVALPROEX 500 MG TABLET,MARVA* Take 3 tablets by mouth daily* LAMOTRIGINE ER 100 MG TABLET,* Take 1 tablet by mouth once d* CALCIUM CARBONATE 500 MG (1,2* TAKE (1) TABLET BY MOUTH TWIC* CERTAVITE-ANTIOXIDANT 18 MG-4* Take 1 tablet by mouth once d* SENNOSIDES 8.6 MG TABLET Take 1 tablet by mouth twice * PYRIDOXINE (VITAMIN B6) 100 M* Take 1 tablet by mouth once d* ZONISAMIDE 100 MG CAPSULE Take 1 capsule by mouth twice* ACETAMINOPHEN 650 MG RECTAL S* 1 Suppository by RECTAL route* ACETAMINOPHEN 325 MG TABLET Take 2 tablets by mouth every* BISACODYL 10 MG RECTAL SUPPOS* 1 Suppository by RECTAL route* MAGNESIUM HYDROXIDE 400 MG/5 * Take 15 mL by mouth once donya* TAMSULOSIN 0.4 MG CAPSULE Take 1 capsule by mouth daily* COMPOUNDED PRESCRIPTION Wheelchair with seat belt COMPOUNDED PRESCRIPTION [place] Problem List As Of Date 08/02/2020 Noted Resolved Seizure disorder (HCC) [G40.909] 12/28/2015 Screen for colon cancer [Z12.11] 01/02/2018 03/26/2018 Gallbladder polyp [K82.4] 03/13/2018 Ataxia [R27.0] 06/16/2020 Development delay [R62.50] 06/16/2020 Prescriptions ordered this encounter Disp Refills Start End POLYETHYLENE GLYCOL 3350 17 GRAM ORA* 30 P* 2 08/02/2020 Route: ORAL Sig: Take 1 Packet by mouth once daily. Medications Discontinued During This Encounter Prescriptions - polyethylene glycol 3350 (GAVILAX) 17 gram packet (Discontinued) Take 1 Packet by mouth once daily. Encounter Status:Closed by JESUS MILLS MD on 08/02/20 [facility] 07-05-2020 [facility] Telephone (FAMPWS) -- JESUS SHAVER ([id number]) 1955 Date Time Provider Department 07/05/20 JESUS MILLS [facility] During your visit today, we recorded the following information about you: Jesus Mills MD 07/05/2020 9:11 AM Signed His lamictal level is pendng. His valproic level is slightly elevated. Is he seeing neurology still? Is so, need to fax results to his neurologist to review. If not, Check what time he usually takes his med and let me know Fredis Cunningham LPN 07/05/2020 11:25 AM Signed Patient is seeing neurology still [facility] nurse [facility] states that meds would be given at 8a, 4p, 8p. Asking to have faxed to her so she can forward on to neurology. Will fax [phone]. Jesus Mills MD 07/07/2020 8:08 AM Signed lamictal came back borderline high. Fax to neurology also. Fredis Cunningham LPN 07/07/2020 9:28 AM Signed Will send all results to [place] nurse [facility]. Allergies As of Date: 07/05/2020 Noted Allergy Reaction KEPPRA (LEVETIRACETAM) 05/14/2015 14 - Other: See Comments Comments: Increased seizures VICKS VAPORUB ([id number]-[id number]*2015 2 - Rash Date Reviewed: 02/21/2019 Reviewed by: Minerva Castillo - Fully Assessed Reason for Visit: Results [95] Prescriptions as of 07/05/2020 Sig: DIVALPROEX 500 MG TABLET,MARVA* Take 3 tablets by mouth daily* LAMOTRIGINE ER 100 MG TABLET,* Take 1 tablet by mouth once d* CALCIUM CARBONATE 500 MG (1,2* TAKE (1) TABLET BY MOUTH TWIC* CERTAVITE-ANTIOXIDANT 18 MG-4* Take 1 tablet by mouth once d* SENNOSIDES 8.6 MG TABLET Take 1 tablet by mouth twice * POLYETHYLENE GLYCOL 3350 17 G* Take 1 Packet by mouth once d* PYRIDOXINE (VITAMIN B6) 100 M* Take 1 tablet by mouth once d* ZONISAMIDE 100 MG CAPSULE Take 1 capsule by mouth twice* ACETAMINOPHEN 650 MG RECTAL S* 1 Suppository by RECTAL route* ACETAMINOPHEN 325 MG TABLET Take 2 tablets by mouth every* BISACODYL 10 MG RECTAL SUPPOS* 1 Suppository by RECTAL route* MAGNESIUM HYDROXIDE 400 MG/5 * Take 15 mL by mouth once donya* TAMSULOSIN 0.4 MG CAPSULE Take 1 capsule by mouth daily* COMPOUNDED PRESCRIPTION Wheelchair with seat belt COMPOUNDED PRESCRIPTION [place] Problem List As Of Date 07/05/2020 Noted Resolved Seizure disorder (HCC) [G40.909] 12/28/2015 Screen for colon cancer [Z12.11] 01/02/2018 03/26/2018 More... Gallbladder polyp [K82.4] 03/13/2018 More... Ataxia [R27.0] 06/16/2020 Development delay [R62.50] 06/16/2020 Encounter Status:Closed by FREDIS CUNNINGHAM LPN on 07/07/20 Normal [facility] CBC and Differentialon 07-03 Abs Baso 0.07 k/uL Normal <0.11 [facility] Comment on above: Performed By: #### V PA, CBCDIF, PSAS1, LMTR ####[facility] [place] [phone] Abs [place] 0.76 k/uL Normal <0.87 [facility] Comment on above: Performed By: #### V PA, CBCDIF, PSAS1, LMTR ####[facility] [place] [phone] Abs Neut 2.20 k/uL Normal 1.45-7.50 [facility] Comment on above: Performed By: #### V PA, CBCDIF, PSAS1, LMTR ####[place] [address] [place] [phone] Absolute nRBC <0.01 Normal <0.01 [facility] Comment on above: Performed By: #### V PA, CBCDIF, PSAS1, LMTR ####[facility]level[address] [phone] Basophils/100 WBC (Bld) 1.0 % Normal [facility] Comment on above: Performed By: #### V PA, CBCDIF, PSAS1, LMTR ####[facility] [place] [phone] DTYPE Auto Diff Normal [facility] Comment on above: Performed By: #### V PA, CBCDIF, PSAS1, LMTR ####[facility] [phone] Eosinophils (Bld) [#/Vol] 0.07 10*3/uL Normal <0.46 [facility] Comment on above: Performed By: #### V PA, CBCDIF, PSAS1, LMTR ####[place] [address]Cleveland[address] [place] [phone] Eosinophils/100 WBC (Bld) 1.0 % Normal [facility] Comment on above: Performed By: #### V PA, CBCDIF, PSAS1, LMTR ####[place] [address] [phone] Erythrocyte distribution width (RBC) [Ratio] 15.4 % High 11.5-15.0 [facility] Comment on above: Performed By: #### V PA, CBCDIF, PSAS1, LMTR ####[place] [address] [place] [phone] Hematocrit (Bld) [Volume fraction] 40.6 % Normal 39.0-51.0 [facility] Comment on above: Performed By: #### V PA, CBCDIF, PSAS1, LMTR ####[place] [address] [phone] Hemoglobin (Bld) [Mass/Vol] 13.1 g/dL Normal 13.0-17.0 [facility] Comment on above: Performed By: #### V PA, CBCDIF, PSAS1, LMTR ####[place] [address] [place] [phone] Lymphocytes (Bld) [#/Vol] 3.78 10*3/uL Normal 1.00-4.00 [facility] Comment on above: Performed By: #### V PA, CBCDIF, PSAS1, LMTR ####[place] [address] [phone] Lymphocytes/100 WBC (Bld) 54.9 % Normal [facility] Comment on above: Performed By: #### V PA, CBCDIF, PSAS1, LMTR ####[place] [address] [place] [phone] MCH 32.3 pG Normal 26.0-34.0 [facility] Comment on above: Performed By: #### V PA, CBCDIF, PSAS1, LMTR ####[place] [phone] MCHC (RBC) [Mass/Vol] 32.3 g/dL Normal 30.5-36.0 [facility] Comment on above: Performed By: #### V PA, CBCDIF, PSAS1, LMTR ####[address] [place] [phone] MCV (RBC) [Entitic vol] 100.2 fL High 80.0-100.0 [facility] Comment on above: Performed By: #### V PA, CBCDIF, PSAS1, LMTR ####[place] [phone] Monocytes/100 WBC (Bld) 11.0 % Normal [facility] Comment on above: Performed By: #### V PA, CBCDIF, PSAS1, LMTR ####[place] [phone] Neutrophils/100 WBC (Bld) 32.1 % Normal [facility] Comment on above: Performed By: #### V PA, CBCDIF, PSAS1, LMTR ####[place] [phone] NRBCs 0.0 /100 WBC Normal 0 [facility] Comment on above: Performed By: #### V PA, CBCDIF, PSAS1, LMTR ####[address] [phone] Platelet mean volume (Bld) [Entitic vol] 13.0 fL High 9.0-12.7 [facility] Comment on above: Performed By: #### V PA, CBCDIF, PSAS1, LMTR ####[place] [address]CU[address] [place], [place] [phone] Platelets (Bld) [#/Vol] 109 10*3/uL Low 150-400 [facility] Comment on above: Performed By: #### V PA, CBCDIF, PSAS1, LMTR ####[address] [place], [place] [phone] RBC (Bld) [#/Vol] 4.05 10*6/uL Low 4.20-6.00 [facility] Comment on above: Performed By: #### V PA, CBCDIF, PSAS1, LMTR ####[address] [place], [place] [phone] WBC (Bld) [#/Vol] 6.88 10*3/uL Normal 3.70-11.00 [facility] Comment on above: Performed By: #### V PA, CBCDIF, PSAS1, LMTR ####[address] [place], [place] [phone] Lamotrigineon 07-03-2020 Lamotrigine 13.5 ug/mL High 1-13 [facility] Comment on above: Result Comment: This test was developed and its performance characteristics determined by [facility] Pathology and Laboratory Medicine [place] ([facility]). It has not been cleared or approved by the FDA. [facility] is regulated under CLIA as qualified to perform high complexity testing. This test is used for clinical purposes. It should not be regarded as investigational or for research. Performed By: #### V PA, CBCDIF, PSAS1, LMTR ####[place] [address] [place], [place] [phone] Remote CMP (for [facility] use only )on 07-03-2020 Albumin [Mass/Vol] 3.7 g/dL Low 3.9-4.9 [facility] Comment on above: Performed By: #### R CMP, RLIPB ####[address], [place] [phone] ALP [Catalytic activity/Vol] 67 U/L Normal 38-113 [facility] Comment on above: Performed By: #### R CMP, RLIPB ####[address] [phone] ALT [Catalytic activity/Vol] 15 U/L Normal 10-54 [facility] Comment on above: Performed By: #### R CMP, RLIPB ####[address] [phone] Anion gap [Moles/Vol] 7 mmol/L Low 9-18 [facility] Comment on above: Performed By: #### R CMP, RLIPB ####[address] [phone] AST [Catalytic activity/Vol] 26 U/L Normal 14-40 [facility] Comment on above: Performed By: #### R CMP, RLIPB ####[address] [phone] Bilirubin [Mass/Vol] 0.3 mg/dL Normal 0.2-1.3 [facility] Comment on above: Performed By: #### R CMP, RLIPB ####[address] [phone] Calcium [Mass/Vol] 9.6 mg/dL Normal 8.5-10.2 [facility] Comment on above: Performed By: #### R CMP, RLIPB ####[address] [phone] Chloride [Moles/Vol] 106 mmol/L High 97-105 [facility] Comment on above: Performed By: #### R CMP, RLIPB ####[address] [phone] CO2 [Moles/Vol] 28 mmol/L Normal 22-30 [facility] Comment on above: Performed By: #### R MAX DONGB ####[facility] [place], [place] [phone] Creatinine [Mass/Vol] 1.01 mg/dL Normal 0.73-1.22 [facility] Comment on above: Performed By: #### R LETITIA RLIPB ####[facility] [place], [place] [phone] eGFR- Amer. >60 Normal [facility] Comment on above: Performed By: #### R MAX DONGB ####[place] [address] [place], [place] [phone] eGFR-All Other Races >60 Normal [facility] Comment on above: Result Comment: eGFR (Estimated GFR) Units of measure: mL/min/1.73 meters squared eGFR is derived from the reexpressed MDRD Study equation using the following parameters: serum creatinine, age, gender and race. The creatinine assay has been calibrated to be traceable to IDMS. An eGFR <60 mL/min/1.73m2 for >3 months is consistent with chronic kidney disease. Refer to KDOQI guidelines for clinical interpretation. In patients with unstable renal function, e.g. those with acute kidney injury, the eGFR may not accurately reflect actual GFR. Performed By: #### R MIKAL DONGIPB ####[facility] [place], [place] [phone] Glucose [Mass/Vol] 73 mg/dL Low 74-99 [facility] Comment on above: Result Comment: The [place] Diabetes Association (ADA) provides guidance for cutoff values for fasting glucose and random glucose. The ADA defines fasting as no caloric intake for at least 8 hours. Fasting plasma glucose results between 100 to 125 mg/dL indicate increased risk for diabetes (prediabetes). Fasting plasma glucose results greater than or equal to 126 mg/dL meet the criteria for diagnosis of diabetes. In the absence of unequivocal hyperglycemia, results should be confirmed by repeat testing. In a patient with classic symptoms of hyperglycemia or hyperglycemic crisis, random plasma glucose results greater than or equal to 200 mg/dL meet the criteria for diagnosis of diabetes. Reference: Standards of Medical Care in Diabetes 2016, [place] Diabetes Association. Diabetes Care. 2016.39(Suppl 1). Performed By: #### R CMP, RLIPB ####[facility] [place], [place] [phone] Potassium [Moles/Vol] 4.3 mmol/L Normal 3.7-5.1 [facility] Comment on above: Performed By: #### R CMP, RLIPB ####[place] [address], [place] [phone] Protein [Mass/Vol] 6.4 g/dL Normal 6.3-8.0 [facility] Comment on above: Performed By: #### R CMP, RLIPB ####[place] [address] [phone] Sodium [Moles/Vol] 141 mmol/L Normal 136-144 [facility] Comment on above: Performed By: #### R CMP, RLIPB ####[facility] [place], [place] [phone] Urea nitrogen [Mass/Vol] 20 mg/dL Normal 9-24 [facility] Comment on above: Performed By: #### R CMP, RLIPB ####[place] [address], [place] [phone] Remote LIPB (for [facility] use onl y)on 07-03-2020 Cholesterol [Mass/Vol] 155 mg/dL Normal <200 [facility] Comment on above: Result Comment: <200 mg/dL, Desirable 200-239 mg/dL, Borderline high >239 mg/dL, High Performed By: #### R CMP, RLIPB ####[place] [address] [place], [place] [phone] Cholesterol in HDL [Mass/Vol] 60 mg/dL Normal >39 [facility] Comment on above: Result Comment: 40-5 9 mg/dL, Acceptable >59 mg/dL, High: Negative risk factor for coronary heart disease <40 mg/dL, Low: Positive risk factor for coronary heart disease Performed By: #### R CMP, RLIPB ####[facility] [address] [place], [place] [phone] Cholesterol in LDL [Mass/Vol] 75 mg/dL Normal <100 [facility] Comment on above: Result Comment: <100 mg/dL, Optimal 100-129 mg/dL, Near optimal/above optimal 130-159 mg/dL, Borderline high 160-189 mg/dL, High >189 mg/dL, Very high Secondary prevention optimal LDL Cholesterol levels are recommended to be < 70 mg/dL Performed By: #### R CMP, RLIPB ####[facility] [place], [place] [phone] Fasting Time 15 hrs Normal [facility] Comment on above: Performed By: #### R CMP, RLIPB ####[facility] [address] [place], [place] [phone] LDL:HDL Ratio 1.25 Normal <2.54 [facility] Comment on above: Result Comment: Refe rence: 1. National Cholesterol Education Program ATP III Guideline At-A-Glance Quick Desk Reference: National Heart, Lung, and Blood [place]. National Institutes of Health. 2001: NIH Publication No. 01-3305. 2. An International Atherosclerosis Society position paper: global recommendations for the management of dyslipidemia: executive summary, Atherosclerosis. 2014: 232(2):410-413. Performed By: #### R CMP, RLIPB ####[place] [address] [place], [place] [phone] Non HDL Cholesterol 95 mg/dL Normal <130 [facility] Comment on above: Result Comment: <130 mg/dL, Optimal 130-159 mg/dL, Near optimal/above optimal 160-189 mg/dL, Borderline high 190-219 mg/dL, High >219 mg/dL, Very high Secondary prevention optimal non HDL Cholesterol levels are recommended to be < 100 mg/dL Performed By: #### R CMP, RLIPB ####[facility] [place], [place] [phone] TC:HDL Ratio 2.58 Normal <5.10 [facility] Comment on above: Performed By: #### R CMP, RLIPB ####[place] [address] [place], [place] [phone] Triglyceride [Mass/Vol] 98 mg/dL Normal <150 [facility] Comment on above: Result Comment: <150 mg/dL, Normal 150-199 mg/dL, Borderline high 200-499 mg/dL, High >499 mg/dL, Very high Performed By: #### R CMP, RLIPB ####[place] [address] [place], [place] [phone] VLDL Cholesterol 20 mg/dL Normal <30 [facility] Comment on above: Performed By: #### R CMP, RLIPB ####[facility] [address] [place], [place] [phone] Valproic Acidon 07-03-2020 Valproic Acid 100.4 ug/mL High 50-100 [facility] Comment on above: Result Comment: Refe rence ranges and high/low indicator flags are provided as general guidelines only. The treating physician must determine appropriate target levels/dosing based on the specific clinical situation. Performed By: #### V PA, CBCDIF, PSAS1, LMTR ####[address] [place], [place] [phone] Fecal Occult Bld Tston 06-17 Immuno FOB Negative Normal Negative [facility] Comment on above: Result Comment: This test was developed and its performance characteristics determined by [facility] [facility] [place] ([facility]). It has not been cleared or approved by the FDA. [facility] is regulated under CLIA as qualified to perform high complexity testing. This test is used for clinical purposes. It should not be regarded as investigational or for research. Performed By: #### I FOBT ####[facility], [place] [phone] CNOVcharlie 06-16-2020 CNOV Office Visit (FAMPWS ) -- JESUS SHAVER ([id number]) 1955 M Date Time Provider Department 06/16/20 8:00 AM JESUS MILLS During your visit today, we recorded the following information about you: Temperature Pulse Respiration Blood pressure 97.5 degrees 85/minute 16/minute 116/64 Weight 83 kg Jesus Milsl MD 06/16/2020 8:31 AM Signed Patient presents with: Yearly Exam HPI: Patient presents today for office visit for annual check up. Has been doing well since back from the halfway. Has started to gain weight again. Back to work and had his covid shots. See previous notes regarding hospitalization. No seizures. Bowels and urine doing well. No behavioral issues that are new. MEDICATIONS: Current Outpatient Medications Medication Sig - divalproex DR (DEPAKOTE) 500 mg EC tablet Take 3 tablets by mouth daily at bedtime. at bedtime - lamoTRIgine ER (LAMICTAL XR) 100 mg 24 hr tablet Take 1 tablet by mouth once daily. - rwztvis-gzfupkiza-dxczmyf D3 (OYSTER SHELL CALCIUM-VITAMIN D) 500 mg(1,250mg) -200 unit per tablet TAKE (1) TABLET BY MOUTH TWICE A DAY. - multivitamin-ferrous fumarate-folic acid (CERTAVITE-ANTIOXIDANT) Take 1 tablet by mouth once daily. - senna (SENNA) 8.6 mg tab Take 1 tablet by mouth twice daily. - polyethylene glycol 3350 (GAVILAX) 17 gram packet Take 1 Packet by mouth once daily. - pyridoxine, vitamin B6, (VITAMIN B-6) 100 mg tablet Take 1 tablet by mouth once daily. - zonisamide (ZONEGRAN) 100 mg capsule Take 1 capsule by mouth twice daily. - acetaminophen (TYLENOL) 650 mg suppository 1 Suppository by RECTAL route every 4 hours as needed. - acetaminophen (TYLENOL) 325 mg tablet Take 2 tablets by mouth every 6 hours as needed for Pain. - bisacodyl (DULCOLAX) 10 mg supp 1 Suppository by RECTAL route once daily as needed. - magnesium hydroxide (MILK OF MAGNESIA) 400 mg/5 mL suspension Take 15 mL by mouth once daily as needed for Constipation. Notify physician if no BM in 4 days - tamsulosin ER (FLOMAX) 0.4 mg Take 1 capsule by mouth daily at bedtime. - COMPOUNDED PRESCRIPTION Wheelchair with seat belt - COMPOUNDED PRESCRIPTION Charlotte Lift No current facility-administered medications for this visit. ALLERGIES: ALLERGIES Allergen Reactions - Keppra [Levetiracet* Other: See Comments Increased seizures - Vicks Vaporub [Camp* Rash PAST MEDICAL HISTORY Diagnosis Date - Acute cholecystitis - Bilateral leg weakness - Mild mental retardation - Seizure disorder (HCC) PAST SURGICAL HISTORY Procedure Laterality Date - PAST SURGICAL HISTORY OF VNS - REMOVAL TESTIS,SIMPLE Right 10/20/2019 Orchiectomy No family history on file. Social History Tobacco Use - Smoking status: Never Smoker - Smokeless tobacco: Never Used Substance Use Topics - Alcohol use: No - Drug use: No Reviewed current medications, allergies, past medical history, surgical history, family history and social history today. REVIEW OF SYSTEMS All other reviewed and negative other than HPI. HEALTH MAINTENANCE: Reviewed health maintenance issues today and recommended the following in detail. COLORECTAL CANCER SCREENING due on 03/19/2019 VITALS: BP 116/64 Pulse 85 Temp 36.4 ?C (97.5 ?F) Resp 16 Wt 83 kg (183 lb) SpO2 98% Last 4 Encounter Wt Readings: Date: Wt: 06/16/2020 83 kg (183 lb) 11/28/2018 0 kg () 11/01/2018 93.5 kg (206 lb 3.2 oz) 06/04/2018 96.2 kg (212 lb) PHYSICAL EXAMINATION: General appearance: Well appearing, alert, in no acute distress, well-hydrated, well nourished. Skin: Skin color, texture, turgor normal, no suspicious rashes or lesions Head: Normocephalic, no masses, lesions, tenderness or abnormalities, wearing helmet Eyes: nonincteric fundi. Neck: Supple Lungs: Lungs clear to auscultation. No wheezing, rhonchi, rales Heart: RRR without murmur, gallop, or rubs. No ectopy Abdomen: Normal abdominal exam, Abdomen soft, non-tender. Bowel sounds normal. No masses, organomegaly Extremities: No deformities, edema, skin discoloration, clubbing or cyanosis. Good capillary refill. Musculoskeletal: No joint swelling, deformity, or tenderness Peripheral pulses: Normal Neuro: Negative. No deficits. ASSESSMENT/PLAN: 1. Seizure disorder (HCC) - ICD9: 345.90, ICD10: G40.909 (primary diagnosis) - continue meds. Check labs. - CBC + DIFF - CMP (CMP) (FOR REMOTE [facility] USE) - VALPROIC A/DEPAKENE - LAMOTRIGINE 2. Ataxia - ICD9: 781.3, ICD10: R27.0 - doing better. 3. Development delay - ICD9: 783.40, ICD10: R62.50 - stable. 4. Medication monitoring encounter - ICD9: V58.83, ICD10: Z51.81 - check labs 5. Screening for prostate cancer - ICD9: V76.44, ICD10: Z12.5 - PSA/PROSTSPECAG SCRN 6. Screening for colon cancer - ICD9: V76.51, ICD10: Z12.11 - FECAL OCCULT BLOOD TEST 7. Mixed hyperlipidemia - ICD9: 27 (more content not included)... Normal [facility] Office Visit (Urology)on Follow-up visit Diagnoses/Problems Assessed Benign prostatic hyperplasia with lower urinary tract symptoms (600.01) (N40.1) Nocturia (788.43) (R35.1) Patient Discussion/Summary Treatment options for LUTS reviewed Flomax refilled Discussed timed voiding. Discussed fluid and caffeine intake PSA ordered Labs reviewed F/u 6 months with PSA Chief Complaint 5 mo f/u History of Present IllnessPt.is here for f/u w/ labs. . Most recent cr was o.8. He is currently on Flomax This does seem to help...Timed voidings seem to help as well..No Hx of dysuria or hematuria. No recent UTI sx No recent PSA has been done Review of Systems Constitutional: no fever and no chills. Eyes: no eyesight problems. ENT: no hearing loss. Cardiovascular: no chest pain. Respiratory: no shortness of breath. Gastrointestinal: no abdominal pain. Genitourinary: as noted in HPI. Musculoskeletal: Decreased ROM. uses walker Neurological: a/o X3,. Psychiatric: not suicidal. Endocrine: erectile dysfunction. Hematologic/Lymphatic: Denies being on blood thinners. Active Problems Problems Benign prostatic hyperplasia with lower urinary tract symptoms (600.01) (N40.1) Nocturia (788.43) (R35.1) Urinary incontinence (788.30) (R32) Surgical History Problems No history of surgery Family History Mother Family history unknown (V49.89) (Z78.9) Father Family history unknown (V49.89) (Z78.9) Social History Problems Never a smoker Allergies Medication Camphor Crystals Recorded By: Radha Hoover; 12/22/2019 10:17:35 AM cloBAZam TABS Recorded By: Radha Hoover; 12/22/2019 10:17:35 AM levetiracetam Recorded By: Radha Hoover; 12/22/2019 10:17:35 AM Menthol Eucalyptus LIQD Recorded By: Radha Hoover; 12/22/2019 10:17:35 AM Turpentine Oil OIL Recorded By: Radha Hoover; 12/22/2019 10:17:35 AM Current Meds Medication NameInstruction lamoTRIgine 100 MG Oral Tablet Tamsulosin HCl - 0.4 MG Oral CapsuleTAKE 1 CAPSULE Bedtime Tamsulosin HCl - 0.4 MG Oral Capsule Zonisamide 100 MG Oral Capsule Vitals Vital Signs Recorded: 28Apr2020 09:22AM Heart Rate76 Rdayymjk498 Merfzwvyq86 Ixnbuo271 lb Tobacco Useb) No Fall Screeningb) One or more falls in the last year Physical Exam A/O x 3 in No apparent distress Constitutional: General appearance normal Respiratory: Respiratory effort is normal Gastrointestinal:Abdomen is not tender Genitourinary: Kidneys: Not palpable Bilaterally Bladder: Not palpable or tender Signatures Electronically signed by : Ari Valles II, MD; Mar 24 2021 7:09AM EST (Author) Normal Touchworks VALPROIC ACIDon 02-07-2020 VALPROIC ACID 113.6 MCG/ML High 50-100 [facility] Comment on above: Performed By: #### L [phone] #### [facility] [address] [id number] NURSING PROGon 01-04-2018 Protein mass conc HNO ID: [id number] thor: Vanda (Rn) KELECHI Johnservice: (none)Author Type: Registered NurseType: Nursing Progress NoteFiled: 01/04/2018 10:38 AMNote Text:PACC Nurse Progress NoteHistory AND Physical:PACC Visit Date: N/AOriginal HANDP Date: 01-02-18 by JEFF Danielle visit Date: N/AOutside HANDP Scanned Date: N/ALabs Within Last 6 Months:N/AImaging Within Last 12 Months:N/ACardiac Testing:N/ALast Menstrual Period:LMP Date: N/APostmenopausal >1yr: N/A,S/P Hysterectomy: N/ABMI Percentile (PEDS):N/ARisk Assessment:N/AAnesthesia Review:N/ANarrative:Elena jackman did not have PACC. HANDP in epic per BAILEY Danielle. Patient sawDr. Mills on 01-02-18 re: seizure disorder. Spoke to Venecia at group homewhere [facility]. POA is Adult protective services per Venecia [facility]. She has received instructions from Dr. Hartmann re: bowelprep. Instructed Venecia [facility] patient may have 12oz clear liquids until 2hours prior to [facility]. Instructed to take Lamictal,Zonegran and Depakote preop with sip water. Patient will ne accompaniedby senior care personnel. [facility].Pre-op Considerations:MRDDSeizure disorderChart Check:COMPLETEDLinda KELECHI Johnseptember 2017 10:29 AM Normal [facility] Vital Signs Date Time Vital Sign Value Performing Clinician Viniciusi prabhjot 08-28-2020 09:33-0400 Body temperature 97.3 [degF] Yazid Eric DO Work Phone: [facility] Work Phone: 08-28-2020 09:33-0400 Diastolic blood pressure 62 mm[Hg] Odalys Eric DO Work Phone: [facility] Work Phone: 08-28-2020 09:33-0400 Heart rate 52 /min Yadidi Eric DO Work Phone: [facility] Work Phone: 08-28-2020 09:33-0400 Respiratory rate 16 /min Yadidi Eric DO Work Phone: [facility] Work Phone: 08-28-2020 09:33-0400 SaO2% (BldA) [Mass fraction] 98 % Yadidi Eric DO Work Phone: [facility] Work Phone: 08-28-2020 09:33-0400 Systolic blood pressure 116 mm[Hg] Odalys Eric DO Work Phone: [facility] Work Phone: 04-28-2020 11:22-0500 Body weight 83.92 kg Ari Valles II IW-Fehndmg[facility]Ezewj nd Work Phone: 04-28-2020 11:22-0500 BP Diastolic 85 mm[Hg] Ari Valles II OJ-Qzgylso-Dpzpl nd Work Phone: 04-28-2020 11:22-0500 BP Systolic 139 mm[Hg] Ari Valles II RE-Oljpxen-Ibjyc nd Work Phone: 04-28-2020 11:22-0500 Pulse (Heart Rate) 76 /min rAi Valles II SN-Pocnzue-Bz [facility]land Work Phone: Encounters Encounter Date Encounter Type Care Provider Facility Start: 01-15-2025 ambulatory Beth Gudla Facility:[facility] Start: 06-02-2024 ambulatory Beth Gudla Facility:[facility] Start: 02-25-2024 End: 02-25-2024 ambulatory Beth Gudla Facility:[facility] Start: 07-16-2023 End: 07-16-2023 ambulatory [facility] Work Phone: Start: 07-16-2023 End: 07-16-2023 Departed [facility] Start: 05-18-2023 End: 05-18-2023 ambulatory [facility] Work Phone: Start: 05-18-2023 End: 05-18-2023 Departed [facility] Start: 05-01-2023 End: 05-01-2023 ambulatory [facility] Work Phone: Start: 05-01-2023 End: 05-01-2023 Departed [facility] Start: 02-26-2023 End: 02-26-2023 ambulatory [facility] Work Phone: Start: 02-26-2023 End: 02-26-2023 Departed [facility] Start: 10-16-2022 End: 10-16-2022 ambulatory [facility] Work Phone: Start: 10-16-2022 End: 10-16-2022 Departed [facility] Start: 09-04-2022 End: 09-04-2022 ambulatory [facility] Work Phone: Start: 09-04-2022 End: 09-04-2022 Departed [facility] Start: 08-29-2022 End: 08-29-2022 Departed [facility] Start: 07-21-2022 End: 07-21-2022 ambulatory [facility] Work Phone: Start: 07-21-2022 End: 07-21-2022 Departed [facility] Start: 06-27-2022 End: 06-27-2022 ambulatory [facility] Work Phone: Start: 06-27-2022 End: 06-27-2022 Departed [facility] Start: 05-22-2022 End: 05-22-2022 ambulatory [facility] Work Phone: Start: 05-22-2022 End: 05-22-2022 Departed [facility] Start: 05-22-2022 Registered [facility] Start: 05-15-2022 End: 05-15-2022 ambulatory [facility] Work Phone: Start: 05-15-2022 End: 05-15-2022 Departed [facility] Start: 05-15-2022 Registered [facility] Start: 05-01-2022 End: 05-01-2022 ambulatory [facility] Work Phone: Start: 05-01-2022 End: 05-01-2022 Departed [facility] Start: 11-11-2021 End: 11-11-2021 Departed [facility]erred [facility] Start: 10-26-2021 Registered [facility] 300 Start: 07-27-2021 End: 07-27-2021 Departed [facility] Start: 07-27-2021 Registered [facility] 300 Start: 07-23-2021 End: 07-23-2021 Departed [facility] Start: 07-23-2021 Registered [facility] 300 Start: 05-23-2021 Registered [facility] 100/200 Start: 05-16-2021 Registered [facility] 100/200 Start: 08-25-2020 End: 08-28-2020 Evaluation and management of inpatient Joseydidi Ramandeep Eric DO Work Phone: [facility] Start: 04-28-2020 Patient encounter procedure Ari Valles II GN-Eirvtbw-Nnyrrpb Work Phone: Start: 12-22-2019 Patient encounter procedure Ari Valles II CW-Difqfvt-Uiqwgej Work Phone: Procedures Date Procedure Procedure Detail Performing Clinician Start: 09-04-2022 Urine culture Start: 09-02-2020 Antibody screen Start: 08-28-2020 Blood count complete auto&auto difrntl wbc Donaldo Jeffers MD Work Phone: Start: 08-27-2020 Ecg routine ecg w/least 12 lds w/i&r Monique Resendiz MD Work Phone: Start: 08-27-2020 COVID-19 Todd Hyatt MD Work Phone: Start: 08-27-2020 Us abdominal real time w/image limited Albino Lazo PA-C Work Phone: Start: 08-27-2020 Blood count complete auto&auto difrntl wbc Donaldo Jeffers MD Work Phone: Start: 08-26-2020 Chest x-ray 1 view frontal Albino pineda PA-C Work Phone: Start: 08-26-2020 Radiologic exam abdomen 1 view Albino denny PA-C Work Phone: Start: 08-26-2020 Radiologic examination eye detect foreign body Albino Lazo PA-C Work Phone: Start: 08-26-2020 ADD ON LAB TEST Albino AVALOS-C Work Phone: Start: 08-26-2020 Assay of ammonia Donaldo Jeffers MD Work Phone: Start: 07-03-2020 PSA screening Comment on above: Result Comment: Total PSA test methodolo gy used is the Electrochemiluminescence Immunoassay. Performed By: #### V PA, CBCDIF, PSAS1, LMTR ####[facility] [place], [place] [phone] Start: 04-28-2020 Assay of prostate specific antigen total Ari Valles II History of No history of surgery Ari Valles II Urine culture Plan of Treatment Date Care Activity Detail Author Start: 12-22-2020 Influenza vaccination Flu vacc ine (Season Ended) [employer] Work Phone: Start: 1971 COVID-19 Vaccine (1) COVID-19 Vaccin e (1) [employer] Work Phone: EKG 12 Lead EKG 12 Lead ECG Routine 08/27/2020 1:11 PM EDT [employer] Work Phone: End: 08-26-2020 MRI abdomen without contrast MRI abdomen without contrast Imaging STAT Once for 1 Occurrences starting 08/26/2020 until 08/26/2020 [employer] Work Phone: Comment on above: Once for 1 Occurrenc es starting 08/26/2020 until 08/26/2020 Oxygen therapy [[facility] Data Set] Initiate Oxygen Therapy Protocol Respiratory Care Routine Daily until discontinued starting 08/26/2020 [employer] Work Phone: Comment on above: Daily until disconti nued starting 08/26/2020 Immunizations Immunization Date Immunization Notes Care Provider [facility] 01-20-2020 influenza, injectabl e, quadrivalent, preservative free [facility] 01-20-2020 influenza, seasonal, injectable [facility] 01-05-2019 Influenza virus vaccine [facility] Payers Date Payer Category Payer Self-pay [id number] 2010 Medicaid [id number] Unknown [id number] Unknown [id number] Unknown [id number] Social History Date Type Detail Facility Start: 08-26-2020 Tobacco smoking status NHIS Never smoker [employer] Work Phone: Start: 08-26-2020 Tobacco use and exposure Never used [facility] Sex Assigned At Not on file [facility] Work Phone: Start: 10-20-2020 End: 10-20-2020 Tobacco smoking status NHIS Unknown if ever smoked [facility] Start: 12-08-2019 None [facility] Start: 12-08-2019 - [facility] Start: 08-25-2020 Non-smoker [facility] Start: 1955 Sex Assigned At Male [facility] NEGATED: Highlighted row - - [facility] Work Phone: Medical Equipment Procedure Code Equipment Code Equipment Original Text Equipment Identifier Dates Total cholecystectomy with exploration of common bile duct CLIP,HEMZACH BURR FDA Start: 01-19-2020 Total cholecystectomy with exploration of common bile duct CLIP,HEMZACH BURR FDA Start: 01-19-2020 Total cholecystectomy with exploration of common bile duct CLIP,HEMZACH BURR FDA Start: 01-19-2020 Total cholecystectomy with exploration of common bile duct CLIP,HEMZACH BURR FDA Start: 01-19-2020 Total cholecystectomy with exploration of common bile duct CLIP,HEMZACH BURR FDA Start: 01-19-2020 Total cholecystectomy with exploration of common bile duct CLIP,HEMZACH BURR FDA Start: 01-19-2020 Total cholecystectomy with exploration of common bile duct CLIP,HEMOLOSOMMER BURR FDA Start: 01-19-2020 Total cholecystectomy with exploration of common bile duct CLIP,HEMZACH BURR FDA Start: 01-19-2020 Total cholecystectomy with exploration of common bile duct CLIP,HEMOLOSOMMER BURR FDA Start: 01-19-2020 Total cholecystectomy with exploration of common bile duct CLIP,HEMOLOSOMMER DELUNA WESOMMER FDA Start: 01-19-2020 Total cholecystectomy with exploration of common bile duct CLIP,HEMOLOSOMMER BURR FDA Start: 01-19-2020 Total cholecystectomy with exploration of common bile duct CLIP,HEMOLOSOMMER BURR FDA Start: 01-19-2020 Total cholecystectomy with exploration of common bile duct CLIP,HEMOLOSOMMER BURR FDA Start: 01-19-2020 Total cholecystectomy with exploration of common bile duct CLIP,HEMOLOSOMMER BURR FDA Start: 01-19-2020 Total cholecystectomy with exploration of common bile duct CLIP,ASUNCIONSOMMER MIKIE WECK FDA Start: 01-19-2020 Total cholecystectomy with exploration of common bile duct CLIP,HEMOLOSOMMER MIKIE WECK FDA Start: 01-19-2020 Total cholecystectomy with exploration of common bile duct CLIP,HEMOLOSOMMER MIKIE WECK FDA Start: 01-19-2020 Total cholecystectomy with exploration of common bile duct CLIP,HEMOLOSOMMER DELUNA WECK FDA Start: 01-19-2020 Total cholecystectomy with exploration of common bile duct CLIP,HEMOLOSOMMER DELUNA WECK FDA Start: 01-19-2020 Total cholecystectomy with exploration of common bile duct CLIP,HEMOLOSOMMER DELUNA WECK FDA Start: 01-19-2020 Total cholecystectomy with exploration of common bile duct CLIP,HEMOLOSOMMER DELUNA WECK FDA Start: 01-19-2020 Total cholecystectomy with exploration of common bile duct CLIP,HEMOLOSOMMER MIKIE WESOMMER FDA Start: 01-19-2020 Total cholecystectomy with exploration of common bile duct CLIP,HEMOLOSOMMER MIKIE AMINAH FDA Start: 01-19-2020 Total cholecystectomy with exploration of common bile duct CLIP,HEMSEDRICKSOMMER MIKIE AMINAH FDA Start: 01-19-2020 Total cholecystectomy with exploration of common bile duct CLIP,HEMZACH DELUNA AMINAH FDA Start: 01-19-2020 Total cholecystectomy with exploration of common bile duct CLIP,HEMZACH DELUNA AMINAH FDA Start: 01-19-2020 Total cholecystectomy with exploration of common bile duct CLIP,HEMZACH DELUNA WESOMMER FDA Start: 01-19-2020 Total cholecystectomy with exploration of common bile duct CLIP,HEMOLOSOMMER DELUNA WESOMMER FDA Start: 01-19-2020 Total cholecystectomy with exploration of common bile duct CLIP,HEMSEDRICKSOMMER MIKIE WECK FDA Start: 01-19-2020 Total cholecystectomy with exploration of common bile duct CLIP,HEMOLOSOMMER DELUAN WECK FDA Start: 01-19-2020 Total cholecystectomy with exploration of common bile duct CLIP,HEMOLOSOMMER MIKIE WECK FDA Start: 01-19-2020 Total cholecystectomy with exploration of common bile duct CLIP,HEMOLOSOMMER MIKIE WECK FDA Start: 01-19-2020 Total cholecystectomy with exploration of common bile duct CLIP,HEMOLOSOMMER DELUNA WESOMMER FDA Start: 01-19-2020 Total cholecystectomy with exploration of common bile duct CLIP,HEMOLOSOMMER DELUNA WECK FDA Start: 01-19-2020 Total cholecystectomy with exploration of common bile duct CLIP,HEMOLOSOMMER MIKIE AMINAH FDA Start: 01-19-2020 Total cholecystectomy with exploration of common bile duct CLIP,HEMSEDRICKCK MIKIE BURR FDA Start: 01-19-2020 Total cholecystectomy with exploration of common bile duct CLIP,HEMOLOSOMMER BURR FDA Start: 01-19-2020 Total cholecystectomy with exploration of common bile duct CLIP,HEMOLOSOMMER BURR FDA Start: 01-19-2020 Total cholecystectomy with exploration of common bile duct CLIP,HEMOLOSOMMER BURR FDA Start: 01-19-2020 Total cholecystectomy with exploration of common bile duct CLIP,HEMOLOSOMMER BURR FDA Start: 01-19-2020 Total cholecystectomy with exploration of common bile duct CLIP,HEMOLOSOMMER BURR FDA Start: 01-19-2020 Total cholecystectomy with exploration of common bile duct CLIP,HEMOLOSOMMER BURR FDA Start: 01-19-2020 Total cholecystectomy with exploration of common bile duct CLIP,HEMOLOSOMMER BURR FDA Start: 01-19-2020 Total cholecystectomy with exploration of common bile duct CLIP,HEMZACH BURR FDA Start: 01-19-2020 Total cholecystectomy with exploration of common bile duct CLIP,HEMZACH BURR FDA Start: 01-19-2020 Functional Status Date Assessment Result Facility NEGATED: Highlighted row Functional performance Functional status health issues are not documented Disease NX-Dnzmwhr-Zqxchue Work Phone: Mental Status Date Assessment Result Facility NEGATED: Highlighted row Cognitive function [Interpretation] Cognitive status health issues are not documented Disease KD-Dtmbksl-Oioqkvv Work Phone: Clinical Notes 06-16-2020 to 10-27-2020 Cierra Fields RN - 08/28/2020 2:40 PM Cierra Romano RN - 08/28/2020 11:55 AM Todd Romero MD - 08/27/2020 4:59 PM Jayne Womack DTR - 08/27/2020 3:17 PM EDT Note Date & Type Note Facility 10-27-2020 Note HNO ID: [id number] Author: Wendy Cardoso MD Service: Gastroenterology Author Type: Physician Type: Plan of Care Filed: 10/27/2020 12:53 PM Note Text: DNR status is temporarily reversed to FULL code during ERCP. This was discussed and confirmed with APSI (guardian) - Estelle Duke. Wendy Cardoso Fellow, Gastroenterology AND Hepatology October 27, 2020 12:53 PM [facility] 09-28-2020 Note HNO ID: [id number] Author: Adrien Lu MD Service: ? Author Type: Physician Type: Progress Notes Filed: 09/29/2020 2:38 PM Note Text: New Patient/Consult REASON FOR VISIT Jesus Shaver is a 65 year old male who is scheduled for a consult at the request of Self. CHIEF COMPLAINT Biliary obstruction My final recommendations will be communicated back to the requesting physician by the way of the shared medical record, fax, or via US Mail. HISTORY OF PRESENT ILLNESS This is a 65 year old man with history of MRDD, seizures disorder, cirrhosis, who lives in a senior care. He presented with obstructive jaundice in early August 2020. ERCP failed cannulation, and on 09/03 had PTHC showing choledocholithiasis causing biliary obstruction. Stones were unable to be removed and a right internal-external drain was placed. Bilirubin came down slightly and was discharged. Note from [employer] [facility] Admission 08/28/2020 - 09/13/2020 Patient had hepatitis and EBV negative, unable to do MRI due to metal in the body, CT abdomen pelvis initially showed intrahepatic biliary dilatation with evidence of choledocholithiasis, status post ERCP on 08/30 which showed stenotic major papilla, status post pancreatic stent placement with biliary sphincterotomy. Repeat ERCP on 09/01 failed cannulation of the bile duct, PTHC drain placement on 09/03 with interventional radiology, instructions as below. Patient was treated with empiric Zosyn during that time. Patient has had prior liver biopsy that showed signs of early cirrhosis, received vitamin K on 08/30 with coagulopathy and thrombocytopenia. Patient developed worsening leukocytosis, bilirubin, hypotension on 09/09, CT abdomen repeat showed no acute findings, stents and biliary drain in place, blood cultures have been negative, initially started on Zosyn again but now discontinued. Patient has been continued on divalproex, lamotrigine, zonisamide for his seizure disorder. He does have chronic disability and is wheelchair-bound Usually lives at senior care but will have to go to SNF for biliary drain cares as instructed below. Patient is ready to discharge to SNF today ? PERTINENT PRIOR DIAGNOSTIC TESTING Luminal: ERCP - 09/01/2020 Findings: ? ? ?The residential therapist film was normal. The scope was advanced to a normal major ? ? ?papilla in the descending duodenum. Examination of the pharynx, ? ? ?larynx and associated structures, and upper GI tract was normal. A ? ? ?major papilla precut sphincterotomy had been performed. The major ? ? ?papilla was ulcerated, edematous, and distorted. Attempts to ? ? ?cannulate the CBD were not successful with a variety of wires--035 ? ? ?jag, 035 dream, 025 Vizi, and Novagold>>>could not cross into duct ? ? ?and for the most part I was only entering into what appeared to be a ? ? ?submucosal tract. PD stent placed to facilitate cannulation and for ? ? ?prophylaxis. The ventral pancreatic duct was deeply cannulated with ? ? ?the short-nosed traction sphincterotome. Revolution--0.025 inch was ? ? ?passed into the ventral pancreatic duct. One 5 Fr by 7 cm pancreatic ? ? ?stent with a 3/4 external pigtail was placed into the ventral ? ? ?pancreatic duct for prophylaxis. Fluid flowed through the stent. The ? ? ?stent was in good position. Extra Luminal: CT ABD/PEL W IVCON - 09/09/2020 COMPARISON: 08/29/2020 CT of abdomen and pelvis with contrast LIMITATIONS: ?Streak artifact from the overlapping arms and head. ?Motion artifact. RESULT: Lower chest: Small bilateral pleural effusions and mild bibasilar dependent atelectasis, increased compared to 08/29/2020. Peritoneum/mesentery: There is no free intraperitoneal air or significant free fluid. Liver: No mass. Biliary: Gallbladder is absent. ?Internal/external biliary drainage catheter entering the inferior right lobe and coursing through the right lobe duct system through the common duct and ampulla with the distal retention: Loop formed in the duodenum just below the ampulla. Spleen: Normal. Pancreas: Pancreatic duct stent in place coursing through the pancreatic head and neck region into the duodenal lumen. ?No dilation of the pancreatic duct or pancreatic parenchymal mass. Adrenals: Normal. Kidneys/urinary: Normal. GI tract: No dilated bowel or bowel wall thickening. Appendix: Not seen. Lymph nodes: Negative. Vasculature: Unremarkable. Pelvis: No mass or fluid collection. Bones/soft tissue: Chronic appearing compression deformities of T12 and L3. Labs: Results for PEIFANIO SHAVER ( ) as of 09/21/2020 16:31 Ref. Range 09/13/2020 07:54 Glucose Latest Ref Range: 74 - 99 mg/dL 72 (L) Protein, Total Latest Ref Range: 6.3 - 8.0 g/dL 5.2 (L) Calcium Latest Ref Range: 8.5 - 10.2 mg/dL 9.6 Albumin Latest Ref Range: 3.9 - 4.9 g/dL 2.5 (L) Bilirubin, Total Latest Ref Range: 0.2 - 1.3 mg/dL 11.1 (H) Alkalin (more content not included)... [facility] 09-13-2020 Note HNO ID: [id number] Author: EZE Canales Service: Care Management Author Type: Supervisor Public Health Nursing Type: Care Mgt Progress Note Filed: 09/13/2020 1:56 PM Note Text: CARE MANAGEMENT DISCHARGE NOTE SERVICE DATE: 09/13/2020 SERVICE TIME: 10:49 AM LOS: 16 days Admission Date: 08/28/2020 DISCHARGE ARRANGEMENT (list agency and phone number) Discharge Arrangement: [facility] facility Was an expedited discharge program used?: No CAREGIVER ASSESSMENT: Caregiver is ready, willing and able to meet the patient's needs as recommended by the inter-professional team:: Yes Does the patient have an acute stroke diagnosis, or has the patient had a stroke during this admission?: No Patient's transition needs and plan for meeting these needs: SNF HANDOFF COMMUNICATION: Handoff to: Primary Care Physician TRANSPORTATION ARRANGEMENTS: Transportation Arrangements: Ambulance/[place] Agency and Phone #:: [facility] [phone] Date of Trip: 09/13/20 Time of Trip: 1400 Type of Service: BLS Non-emergency Is Patient Medicaid Pending?: No Discussion of financial coverage occurred with: Guardian Morgue Technician Location: [place] Destination: [facility] Financial Care Management Responsibility: None ADDITIONAL CONTACT RESOURCES: n/a Discharge Information Row Name ED to Hosp-Admission (Current) from 08/28/2020 [id number] Facility Agency [facility] Pt is medically cleared for Dc and has been accepted for admission to [facility]. THey are able to accept today and [facility] BLS has been set for 2pm shrimp picker. Packet with number for report has been provided to bedside RN. RN to add most updated MAR and DC instructions. SW left VM for APSI- guardian - Mandy [phone] to update on DC plans and requested return call. SW also left VM for Board of DD Carmelita [phone] to update on DC plans and requested return call. UPDATE- spoke with Mandy from [facility]- aware and agreeable to Dc plans. Sw received return call from Board of DD worker- Carmelita who requested to have Dc paperwork faxed to her at [phone]. Carmelita reports that this is the last paperwork she needs to complete the Dc paperwork for admission on her end and that pt is able to admit at 2pm today. SW faxed DC paperwork as requested. SIGNATURE: EZE Canales PATIENT NAME: Jesus Shaver DATE: September 13, 2020 TIME: 10:49 AM PAGER/CONTACT #: [phone] [facility] 09-13-2020 Note HNO ID: [id number] Author: Monique Mercedes MD Service: Hospital Medicine Author Type: Physician Type: Progress Notes Filed: 09/13/2020 9:36 AM Note Text: DEPARTMENT OF HOSPITAL MEDICINE PROGRESS NOTE SERVICE DATE: 09/13/2020 SERVICE TIME: 9:33 AM Hospital Medicine/Primary Attending: Monique Mercedes MD NIGHT AND WEEKEND COVERAGE: patient admitted to [facility]. please page [phone] between 7a and 5pm for patient issues. From 5p-7am, please page the night hospitalist on pager [phone] for patient issues. Subjective INTERVAL HPI: Patient does not complain of any pain today, no nausea or vomiting, just waking up, had better oral intake yesterday Current Facility-Administered Medications Medication Dose Route Frequency - divalproex DR 1,500 mg tab(s) (DEPAKOTE) 1,500 mg ORAL AT BEDTIME - zonisamide 100 mg cap(s) (ZONEGRAN) 100 mg ORAL BID - tamsulosin 0.4 mg cap(s) (FLOMAX) 0.4 mg ORAL AT BEDTIME - senna 8.6 mg tab(s) (SENOKOT) 8.6 mg ORAL BID - polyethylene glycol 3350 17 g packet (MIRALAX, GLYCOLAX) 17 g ORAL DAILY - lamoTRIgine 50 mg tab(s) (LaMICtal) 50 mg ORAL BID - sodium chloride 0.9 % (flush) 5-10 mL (BD POSIFLUSH) 5-10 mL OTHER q 12 H - traMADol 50 mg tab(s) (ULTRAM) 50 mg ORAL q 8 H PRN Objective PHYSICAL EXAM: BP 109/51 Pulse 58 Temp (Src) 98.2 (Axillary) Resp 19 Ht [ISAAC[ (0.00m) Wt 175 lb 0.7 oz (79.4kg) SpO2 96% O2 Therapy: Room Air Physical Exam Performed General awake, confused, jaundiced HEENT atraumatic/normocephalic, scleral icterus Neck Soft supple, no JVD Chest clear to auscultation, no wheezes or crackles Cardiac Normal S1, S2. No murmurs, rubs or gallops Abdomen soft non tender, bowel sounds present, peridrain Extremities no LE edema, peripheral pulses intact Neuro no acute focal deficits Lines, Drains, and Airways Line Peripheral 09/11/20 1230 Assessment Short Left Wrist 22 Gauge 1 day Drain Drain/Tube 09/03/20 1446 Biliary Right Anterior;Upper Quadrant Abdomen Drain #1 9 days External Collection Device 09/04/20 2100 8 days DATA: Diagnostic tests reviewed for today's visit: Most recent labs Most recent imaging Assessment/Plan Problem List Jaundice POA: Yes Seizure disorder (HCC) POA: Yes Ataxia POA: Yes Development delay POA: Yes Obstructive jaundice POA: Yes HOSPITAL COURSE: Jesus Shaver is a 65-year-old male with history of MRDD, seizure disorder, cirrhosis, admitted from senior care and transferred from [facility] for obstructive jaundice Obstructive jaundice secondary to choledocholithiasis Hepatitis and EBV negative Unable to do MRI due to metal in body CT abdomen pelvis shows intrahepatic biliary dilatation with evidence of choledocholithiasis Status post ERCP on 08/30 showed stenotic major papillary, status post pancreatic stent placement with biliary sphincterotomy Repeat ERCP on 09/01 failed cannulation of the bile duct, one pancreatic duct placed PTHC drain placement on 09/03 Treated with empiric Zosyn 08/29?09/05 Worsening leukocytosis/bilirubin, hypotension Patient developed hypotension on 09/09 CT abdomen pelvis showed no acute findings, stents and percutaneous biliary drainage catheter in place No lactic acidosis, blood cultures negative to date leukocytosis resolved, Zosyn discontinued per ID team Appreciate GI and ID recommendations Cirrhosis with thrombocytopenia, coagulopathy Prior liver biopsy showed early signs of cirrhosis Platelets stable, ammonia unremarkable Received vitamin K on 08/30 Needs outpatient follow-up with Dr. Torres Normocytic anemia, likely related to chronic disease Iron stores replete Hemoglobin stable Follow serial hemoglobin checks Seizure disorder On divalproex, lamotrigine, zonisamide Asymptomatic pauses on telemetry Appreciate cardiology evaluation No further work-up needed Chronic disability With wheelchair-bound Needs help with daily activities at senior care Likely will go to SNF for biliary drain In the past, consent was provided by advocacy and protective services, call [phone] for consent Need plan for antibiotics, medical clearance, set for patient to go to [facility] [place] Instructions for biliary drain Leave biliary drainage catheter to drainage until routine exchange in 6 weeks. Do not recommend capping given continued elevated LFTs. Will re-evaluate for capping trial at that time. - DO NOT USE 3-WAY STOPCOCK to connect drainage catheter to drainage bag. - Please flush biliary drain Q12 hours while inpatient, Dressing changes every other day. BILIARY DRAIN CARE: 1) Leave drain to gravity at all times 2) Remove bag at luer lock connection and gently flush drain with 10 ml NS every other day, unless directed differently in care plan above. 3) Gently cleanse area around drain insertion site with warm soap and water, rinse, pat dry and apply clean dry dressing every other day and PRN wet or soi (more content not included)... [facility] 09-13-2020 Note HNO ID: [id number] Author: Mercy Monson MD Service: Infectious Disease Author Type: Physician Type: Progress Notes Filed: 09/13/2020 8:20 AM Note Text: INFECTIOUS DISEASE PROGRESS NOTE ID service following patient for leukocytosis Subjective: Afebrile over weekend Cultures negative ROS: Denies cough, chest pain, shortness of breath, nasal congestion, headache, sore throat Current Facility-Administered Medications Medication Dose Route Frequency - divalproex DR 1,500 mg tab(s) (DEPAKOTE) 1,500 mg ORAL AT BEDTIME - zonisamide 100 mg cap(s) (ZONEGRAN) 100 mg ORAL BID - tamsulosin 0.4 mg cap(s) (FLOMAX) 0.4 mg ORAL AT BEDTIME - senna 8.6 mg tab(s) (SENOKOT) 8.6 mg ORAL BID - polyethylene glycol 3350 17 g packet (MIRALAX, GLYCOLAX) 17 g ORAL DAILY - lamoTRIgine 50 mg tab(s) (LaMICtal) 50 mg ORAL BID - sodium chloride 0.9 % (flush) 5-10 mL (BD POSIFLUSH) 5-10 mL OTHER q 12 H - traMADol 50 mg tab(s) (ULTRAM) 50 mg ORAL q 8 H PRN Objective: Physical Exam: Patient Vitals for the past 24 hrs: BP Temp Temp src Pulse Resp SpO2 09/10/20 0819 (!) 107/46 36.6 ?C (97.8 ?F) Oral 61 16 97 % 09/10/20 0331 104/70 36.6 ?C (97.9 ?F) Oral 62 16 96 % 09/09/20 2305 (!) 102/44 36.9 ?C (98.4 ?F) Axillary (!) 57 16 97 % 09/09/20 2136 (!) 112/49 36.8 ?C (98.2 ?F) Oral 64 17 100 % 09/09/20 1612 96/51 36.8 ?C (98.2 ?F) Axillary 67 18 96 % 09/09/20 1116 89/57 37 ?C (98.6 ?F) Axillary 63 20 95 % 09/09/20 1008 (!) 98/43 ? ? (!) 58 ? ? General: Resting in bed, no distress, + jaundice Cardiovascular: Regular rate and rhythm, no murmur Lungs: Clear to auscultation, normal respiratory effort Abdomen: Soft, tender on palpation epigastric area, PTHC present with bilious output Extremities: trace edema at ankles, no rash Labs: WBC Date Value Ref Range Status 09/12/2020 12.09 (H) 3.70 - 11.00 k/uL Final Creatinine Date Value Ref Range Status 09/12/2020 0.74 0.73 - 1.22 mg/dL Final 09/12/2020 0.75 0.73 - 1.22 mg/dL Final 09/11/2020 0.79 0.73 - 1.22 mg/dL Final 09/10/2020 0.94 0.73 - 1.22 mg/dL Final Comment: Result may be falsely decreased due to icteric interference. Micro: 08/28 COVID negative 08/30 acute viral hepatitis panel negative 08/30 EBV PCR negative 09/08 COVID negative 09/09 blood cultures x 2 negative ? Imagin/20 CT abd/pelvis: IMPRESSION: No acute findings in the abdomen and pelvis. Pancreatic duct stent and internal/external percutaneous biliary drainage catheter in place. ?No dilated bile ducts or pancreatic duct. I lateral pleural effusions and bibasilar dependent atelectasis, increased compared to 08/29/202008/29 CT abd/pelvis: IMPRESSION: Mild intrahepatic biliary dilatation. Evidence of choledocholithiasis. ?Mild thickening of the extrahepatic biliary ductal wall. Mild diffuse thickening of the wall of the urinary bladder. ?Mildly enlarged prostate. Minor atelectasis both lung bases. ?Remote compression fracture T12. ? Assessment: 1. Leukocytosis, suspect hepatobiliary or intraabdominal source based on history, but CT abd/pelvis 09/09 without acute findings. Cultures negative. Had 5d empiric zosyn 2. Hyperbilirubinemia with choledocholithiasis s/p ERCP 08/30 and 09/01 followed by PTHC 09/03 3. Cirrhosis ? Plan: 1. Stop zosyn 2. No clear indication for further antibiotic at this time Will sign off. Please don't hesitate to call with any questions or concerns. ? Mercy Monson MD [employer] [facility] Contact#: [phone] [facility] 09-12-2020 Note HNO ID: [id number] Author: Monique Mercedes MD Service: Hospital Medicine Author Type: Physician Type: Progress Notes Filed: 09/12/2020 10:06 AM Note Text: DEPARTMENT OF HOSPITAL MEDICINE PROGRESS NOTE SERVICE DATE: 09/12/2020 SERVICE TIME: 10:04 AM Hospital Medicine/Primary Attending: Monique Mercedes MD NIGHT AND WEEKEND COVERAGE: patient admitted to [facility]. please page [phone] between 7a and 5pm for patient issues. From 5p-7am, please page the night hospitalist on pager [phone] for patient issues. Subjective INTERVAL HPI: Patient does not complain of any pain today, no nausea or vomiting, has not had breakfast yet Current Facility-Administered Medications Medication Dose Route Frequency - divalproex DR 1,500 mg tab(s) (DEPAKOTE) 1,500 mg ORAL AT BEDTIME - zonisamide 100 mg cap(s) (ZONEGRAN) 100 mg ORAL BID - tamsulosin 0.4 mg cap(s) (FLOMAX) 0.4 mg ORAL AT BEDTIME - senna 8.6 mg tab(s) (SENOKOT) 8.6 mg ORAL BID - polyethylene glycol 3350 17 g packet (MIRALAX, GLYCOLAX) 17 g ORAL DAILY - lamoTRIgine 50 mg tab(s) (LaMICtal) 50 mg ORAL BID - sodium chloride 0.9 % (flush) 5-10 mL (BD POSIFLUSH) 5-10 mL OTHER q 12 H - traMADol 50 mg tab(s) (ULTRAM) 50 mg ORAL q 8 H PRN - piperacillin-tazobactam iv piggyback 3.375 g in dextrose (iso-osmotic) 50 mL (ZOSYN) 3.375 g INTRAVENOUS q 6 H Objective PHYSICAL EXAM: BP 124/62 Pulse 65 Temp (Src) 97.5 (Oral) Resp 18 Ht [ISAAC[ (0.00m) Wt 175 lb 0.7 oz (79.4kg) SpO2 96% O2 Therapy: Room Air Physical Exam Performed General awake, confused, jaundiced HEENT atraumatic/normocephalic, scleral icterus Neck Soft supple, no JVD Chest clear to auscultation, no wheezes or crackles Cardiac Normal S1, S2. No murmurs, rubs or gallops Abdomen soft non tender, bowel sounds present, peridrain Extremities no LE edema, peripheral pulses intact Neuro no acute focal deficits Lines, Drains, and Airways Line Peripheral 09/11/20 1230 Assessment Short Left Wrist 22 Gauge <1 day Drain Drain/Tube 09/03/20 1446 Biliary Right Anterior;Upper Quadrant Abdomen Drain #1 8 days External Collection Device 09/04/20 2100 7 days DATA: Diagnostic tests reviewed for today's visit: Most recent labs Most recent imaging Assessment/Plan Problem List Jaundice POA: Yes Seizure disorder (HCC) POA: Yes Ataxia POA: Yes Development delay POA: Yes Obstructive jaundice POA: Yes HOSPITAL COURSE: Jesus Shaver is a 65-year-old male with history of MRDD, seizure disorder, cirrhosis, admitted from senior care and transferred from [facility] for obstructive jaundice Obstructive jaundice secondary to choledocholithiasis Hepatitis and EBV negative Unable to do MRI due to metal in body CT abdomen pelvis shows intrahepatic biliary dilatation with evidence of choledocholithiasis Status post ERCP on 08/30 showed stenotic major papillary, status post pancreatic stent placement with biliary sphincterotomy Repeat ERCP on 09/01 failed cannulation of the bile duct, one pancreatic duct placed PTHC drain placement on 09/03 Treated with empiric Zosyn 08/29?09/05 Worsening leukocytosis/bilirubin, hypotension Patient developed hypotension on 09/09 CT abdomen pelvis showed no acute findings, stents and percutaneous biliary drainage catheter in place No lactic acidosis, blood cultures negative to date leukocytosis improving daily Appreciate GI and ID recommendations Started on empiric Zosyn Cirrhosis with thrombocytopenia, coagulopathy Prior liver biopsy showed early signs of cirrhosis Platelets stable, ammonia unremarkable Received vitamin K on 08/30 Needs outpatient follow-up with Dr. Torres Normocytic anemia, likely related to chronic disease Iron stores replete Hemoglobin stable Follow serial hemoglobin checks Seizure disorder On divalproex, lamotrigine, zonisamide Asymptomatic pauses on telemetry Appreciate cardiology evaluation No further work-up needed Chronic disability With wheelchair-bound Needs help with daily activities at senior care Likely will go to SNF for biliary drain In the past, consent was provided by advocacy and protective services, call [phone] for consent Need plan for antibiotics, medical clearance, set for patient to go to [facility] [place] Medication and Non-Pharmacologic VTE Prophylaxis/Anticoagulants 08/28/202014 pneumatic compression stockings ([place], [place]) 08/28/201814 activity - mobilize patient ([place], [place]) VTE Prophylaxis: VTE prophylaxis appropriate Disposition: SNF Plan of care discussed with: Provider, RN, Patient Plan communicated to: ALEAH SIGNATURE: Monique Mercedes MD PATIENT NAME: Jesus Shaver DATE: September 12, 2020 TIME: 10:06 AM [facility] 09-11-2020 Note HNO ID: [id number] Author: Monique Mercedes MD Service: Hospital Medicine Author Type: Physician Type: Progress Notes Filed: 09/11/2020 9:56 AM Note Text: DEPARTMENT OF HOSPITAL MEDICINE PROGRESS NOTE SERVICE DATE: 09/11/2020 SERVICE TIME: 7:41 AM Hospital Medicine/Primary Attending: Monique Mercedes MD NIGHT AND WEEKEND COVERAGE: patient admitted to [facility]. please page [phone] between 7a and 5pm for patient issues. From 5p-7am, please page the night hospitalist on pager [phone] for patient issues. Subjective INTERVAL HPI: Patient does not complain of any pain today, had a bowel movement yesterday, does not want to have breakfast, would like to have his coffee. No nausea or vomiting, appears confused Current Facility-Administered Medications Medication Dose Route Frequency - divalproex DR 1,500 mg tab(s) (DEPAKOTE) 1,500 mg ORAL AT BEDTIME - zonisamide 100 mg cap(s) (ZONEGRAN) 100 mg ORAL BID - tamsulosin 0.4 mg cap(s) (FLOMAX) 0.4 mg ORAL AT BEDTIME - senna 8.6 mg tab(s) (SENOKOT) 8.6 mg ORAL BID - polyethylene glycol 3350 17 g packet (MIRALAX, GLYCOLAX) 17 g ORAL DAILY - lamoTRIgine 50 mg tab(s) (LaMICtal) 50 mg ORAL BID - sodium chloride 0.9 % (flush) 5-10 mL (BD POSIFLUSH) 5-10 mL OTHER q 12 H - traMADol 50 mg tab(s) (ULTRAM) 50 mg ORAL q 8 H PRN - piperacillin-tazobactam iv piggyback 3.375 g in dextrose (iso-osmotic) 50 mL (ZOSYN) 3.375 g INTRAVENOUS q 6 H Objective PHYSICAL EXAM: BP 129/54 Pulse 62 Temp (Src) 97.5 (Oral) Resp 18 Ht [ISAAC[ (0.00m) SpO2 95% O2 Therapy: Room Air Physical Exam Performed General awake, confused, jaundiced HEENT atraumatic/normocephalic, scleral icterus Neck Soft supple, no JVD Chest clear to auscultation, no wheezes or crackles Cardiac Normal S1, S2. No murmurs, rubs or gallops Abdomen soft non tender, bowel sounds present, peridrain Extremities no LE edema, peripheral pulses intact Neuro no acute focal deficits Lines, Drains, and Airways Line Peripheral 09/03/20 1348 Right Hand 18 Gauge 7 days Drain Drain/Tube 09/03/20 1446 Biliary Right Anterior;Upper Quadrant Abdomen Drain #1 7 days External Collection Device 09/04/20 2100 6 days DATA: Diagnostic tests reviewed for today's visit: Most recent labs Most recent imaging Assessment/Plan Problem List Jaundice POA: Yes Seizure disorder (HCC) POA: Yes Ataxia POA: Yes Development delay POA: Yes Obstructive jaundice POA: Yes HOSPITAL COURSE: Jesus Shaver is a 65-year-old male with history of MRDD, seizure disorder, cirrhosis, admitted from senior care and transferred from [facility] for obstructive jaundice Obstructive jaundice secondary to choledocholithiasis Hepatitis and EBV negative Unable to do MRI due to metal in body CT abdomen pelvis shows intrahepatic biliary dilatation with evidence of choledocholithiasis Status post ERCP on 08/30 showed stenotic major papillary, status post pancreatic stent placement with biliary sphincterotomy Repeat ERCP on 09/01 failed cannulation of the bile duct, one pancreatic duct placed PTHC drain placement on 09/03 Treated with empiric Zosyn 08/29?09/05 Worsening leukocytosis/bilirubin, hypotension Patient developed hypotension on 09/09 CT abdomen pelvis showed no acute findings, stents and percutaneous biliary drainage catheter in place No lactic acidosis, blood cultures negative to date leukocytosis improving Appreciate GI and ID recommendations Started on empiric Zosyn Cirrhosis with thrombocytopenia, coagulopathy Prior liver biopsy showed early signs of cirrhosis Platelets stable, ammonia unremarkable Received vitamin K on 08/30 Needs outpatient follow-up with Dr. Torres Normocytic anemia, likely related to chronic disease Iron stores replete Hemoglobin stable Follow serial hemoglobin checks Seizure disorder On divalproex, lamotrigine, zonisamide Asymptomatic pauses on telemetry Appreciate cardiology evaluation No further work-up needed Chronic disability With wheelchair-bound Needs help with daily activities at senior care Likely will go to SNF for biliary drain In the past, consent was provided by advocacy and protective services, call [phone] for consent Need plan for antibiotics, medical clearance, set for patient to go to [facility] [place] Medication and Non-Pharmacologic VTE Prophylaxis/Anticoagulants 08/28/202014 pneumatic compression stockings ([place]) 08/28/20 1817 activity - mobilize patient ([place], [place]) VTE Prophylaxis: VTE prophylaxis appropriate Disposition: SNF Plan of care discussed with: Provider, RN, Patient Plan communicated to: Called and left message for guardian, to call back- extension [phone] SIGNATURE: Monique Mercedes MD PATIENT NAME: Jesus Shaver DATE: September 11, 2020 TIME: 7:41 AM [facility] 09-10-2020 Note HNO ID: [id number] Author: Irene Worrell DO Service: Hospital Medicine Author Type: Physician Type: Progress Notes Filed: 09/10/2020 1:20 PM Note Text: DEPARTMENT OF HOSPITAL MEDICINE PROGRESS NOTE SERVICE DATE: 09/10/2020 SERVICE TIME: 12:07 PM Hospital Medicine/Primary Attending: DO Dr. Daren Gomez will assume care of the patient on 09/11 NIGHT AND WEEKEND COVERAGE: [facility] COVERAGE: Patient admitted to [facility] From 0700 - 163, please contact pager [phone] for patient issues. From 163 - [phone], please contact the Night Hospitalist on pager [phone] for patient issues. Subjective INTERVAL HPI: Patient seen and examined. Patient currently states that he wants to "feel better." No current complaints of pain or nausea. Per nursing - no acute issues noted. MEDICATIONS: Reviewed Objective PHYSICAL EXAM: BP 106/54 Pulse 66 Temp (Src) 97.8 (Oral) Resp 14 Ht [ISAAC[ (0.00m) SpO2 96% O2 Therapy: Room Air Physical Exam Performed GENERAL: Resting comfortably in bed, no distress, (+) jaundice LUNGS: Lungs clear to auscultation, Good diaphragmatic excursion CARDIAC: Normal S1 and S2; no rubs, murmurs, or gallops ABDOMEN: Abdomen soft, non-tender, BS normal, No masses or organomegaly, (+) biliary drain EXTREMITIES: Extremities normal, no deformities, edema, clubbing or skin discoloration. Good capillary refill., No ulcers NEURO: Cranial nerves II-XII intact Lines, Drains, and Airways Line Peripheral 08/30/20 0847 Right Forearm 22 Gauge 11 days Peripheral 09/03/20 1348 Right Hand 18 Gauge 6 days Drain Drain/Tube 09/03/20 1446 Biliary Right Anterior;Upper Quadrant Abdomen Drain #1 6 days External Collection Device 09/04/20 2100 5 days DATA: Diagnostic tests reviewed for today's visit: Most recent labs Assessment/Plan The patient is a 65 year old man with history of MRDD, seizure disorder and cirrhosis who lives in a senior care who was transferred from [facility] for obstructive jaundice. ? Obstructive jaundice secondary to choledocholithiasis --Presented with jaundice and abdominal discomfort. --Labs suggestive of obstructive pattern --Hepatitis and EBV negative --Could not do MRI based on metal in body per OSH report. --CT abdomen/pelvis done on 08/29 showed mild intrahepatic biliary dilatation with evidence of choledocholithiasis. --ERCP on 08/30 and found to have stenotic major papillary. Pancreatic stent placed in ventral pancreatic duct with biliary sphincterotomy. --Repeat ERCP on 09/01-failed cannulation of the bile duct, one pancreatic stent placed in ventral pancreatic duct --Was treated with empiric Zosyn from 08/29-09/05 --Underwent PTHC drain placement on 09/03 --IR recs noted --Currently noted to be on a regular diet Relative hypotension and worsening leukocytosis/uptrending bilirubin --Noted on 09/09 - started Zosyn, fluids ordered, blood cultures ordered, lactate negative, ordered repeat CT abd/pelvis --Blood pressure noted to be relatively stable, leukocytosis improving, patient currently noted to be afebrile --Continue Zosyn --Blood cultures currently negative --CT abd/pelvis - No acute findings in the abdomen and pelvis. Pancreatic duct stent and internal/external percutaneous biliary drainage catheter in place. ?No dilated bile ducts or pancreatic duct. lateral pleural effusions and bibasilar dependent atelectasis, increased compared to 08/29/2020. --ID recs appreciated --GI recs appreciated History of cirrhosis with noted thrombocytopenia and coagulopathy --As per records from [facility] he had liver biopsy done in the past which showed early signs of cirrhosis (unclear etiology) --Platelets currently noted to be stable at 106 --Ammonia level WNL --Noted to have elevated INR as well. Received dose of vitamin K on 08/30, currently noted to be stable at 1 --Outpatient follow-up with Dr. Torres (liver specialist) Pleural effusions/Atelectasis --Noted on CT chest - patient currently without increased work of breath and currently >90% on RA --Continue to monitor Anemia, normocytic --No overt signs of bleeding --No evidence of TIERA, LDH negative --Occult stool as able --Hb currently noted to be stable at 8.4 --Continue to monitor Seizure disorder --Continue divalproex, lamotrigine and zonisamide Pauses on telemetry --Noted by nursing on 09/05 to be having multiple 2-3 second pauses on telemetry --Patient noted to be asymptomatic --Cardio recs noted - no further evaluation noted ? Chronic disability --He is wheelchair-bound and is dependent on daily activities --PT/OT recs - [facility], patient will need to go to SNF for biliary drain ? MRDD --Patient lives in a senior care and needs help with his daily activities --In the past consent was provided by advocacy and protective services. Call [phone] for every consent. Medication and Non-Pharmacologic VTE Prophylaxi (more content not included)... [facility] 09-10-2020 Note HNO ID: [id number] Author: Mercy Monson MD Service: Infectious Disease Author Type: Physician Type: Progress Notes Filed: 09/10/2020 9:44 AM Note Text: INFECTIOUS DISEASE PROGRESS NOTE ID service following patient for leukocytosis Subjective: Afebrile overnight Complains of abd pain CT abd/pelvis without new findings ROS: Denies cough, chest pain, shortness of breath, nasal congestion, headache, sore throat Current Facility-Administered Medications Medication Dose Route Frequency - divalproex DR 1,500 mg tab(s) (DEPAKOTE) 1,500 mg ORAL AT BEDTIME - zonisamide 100 mg cap(s) (ZONEGRAN) 100 mg ORAL BID - tamsulosin 0.4 mg cap(s) (FLOMAX) 0.4 mg ORAL AT BEDTIME - senna 8.6 mg tab(s) (SENOKOT) 8.6 mg ORAL BID - polyethylene glycol 3350 17 g packet (MIRALAX, GLYCOLAX) 17 g ORAL DAILY - lamoTRIgine 50 mg tab(s) (LaMICtal) 50 mg ORAL BID - sodium chloride 0.9 % (flush) 5-10 mL (BD POSIFLUSH) 5-10 mL OTHER q 12 H - traMADol 50 mg tab(s) (ULTRAM) 50 mg ORAL q 8 H PRN - NaCl 0.9% iv infusion 100 mL/hr INTRAVENOUS CONTINUOUS - piperacillin-tazobactam iv piggyback 3.375 g in dextrose (iso-osmotic) 50 mL (ZOSYN) 3.375 g INTRAVENOUS q 6 H - iv contrast (radiology procedure) INTRAVENOUS DIRECTED PRN Objective: Physical Exam: Patient Vitals for the past 24 hrs: BP Temp Temp src Pulse Resp SpO2 09/10/20 0819 (!) 107/46 36.6 ?C (97.8 ?F) Oral 61 16 97 % 09/10/20 0331 104/70 36.6 ?C (97.9 ?F) Oral 62 16 96 % 09/09/20 2305 (!) 102/44 36.9 ?C (98.4 ?F) Axillary (!) 57 16 97 % 09/09/20 2136 (!) 112/49 36.8 ?C (98.2 ?F) Oral 64 17 100 % 09/09/20 1612 96/51 36.8 ?C (98.2 ?F) Axillary 67 18 96 % 09/09/20 1116 89/57 37 ?C (98.6 ?F) Axillary 63 20 95 % 09/09/20 1008 (!) 98/43 ? ? (!) 58 ? ? General: Resting in bed, no distress, + jaundice Cardiovascular: Regular rate and rhythm, no murmur Lungs: Clear to auscultation, normal respiratory effort Abdomen: Soft, tender on palpation epigastric area, PTHC present with bilious output Extremities: trace edema at ankles, no rash Labs: WBC Date Value Ref Range Status 09/09/2020 16.26 (H) 3.70 - 11.00 k/uL Final Creatinine Date Value Ref Range Status 09/10/2020 0.94 0.73 - 1.22 mg/dL Final Comment: Result may be falsely decreased due to icteric interference. 09/09/2020 1.05 0.73 - 1.22 mg/dL Final 09/08/2020 0.92 0.73 - 1.22 mg/dL Final 09/07/2020 0.92 0.73 - 1.22 mg/dL Final Micro: 5/8 COVID negative 08/30 acute viral hepatitis panel negative 08/30 EBV PCR negative 09/08 COVID negative 09/09 blood cultures x 2 negative to date ? Imagin/20 CT abd/pelvis: IMPRESSION: No acute findings in the abdomen and pelvis. Pancreatic duct stent and internal/external percutaneous biliary drainage catheter in place. ?No dilated bile ducts or pancreatic duct. I lateral pleural effusions and bibasilar dependent atelectasis, increased compared to 08/29/202008/29 CT abd/pelvis: IMPRESSION: Mild intrahepatic biliary dilatation. Evidence of choledocholithiasis. ?Mild thickening of the extrahepatic biliary ductal wall. Mild diffuse thickening of the wall of the urinary bladder. ?Mildly enlarged prostate. Minor atelectasis both lung bases. ?Remote compression fracture T12. ? Assessment: 1. Leukocytosis, suspect hepatobiliary or intraabdominal source based on history, but CT abd/pelvis 09/09 without acute findings. Blood cultures pending 2. Hyperbilirubinemia with choledocholithiasis s/p ERCP 08/30 and 09/01 followed by PTHC 09/03 3. Cirrhosis ? Plan: 1. Continue zosyn 2. Follow-up blood cultures 3. Trend WBC count Dr. Wong and Dr. Dean covering weekend. Will be following peripherally. Please call if acute concerns. ? Mercy Monson MD [employer] Contact#: [phone] [facility] 09-09-2020 Note HNO ID: [id number] Author: Irene Worrell DO Service: Hospital Medicine Author Type: Physician Type: Progress Notes Filed: 09/09/2020 4:10 PM Note Text: DEPARTMENT OF HOSPITAL MEDICINE PROGRESS NOTE SERVICE DATE: 09/09/2020 SERVICE TIME: 4:07 PM Hospital Medicine/Primary Attending: Irene Worrell DO NIGHT AND WEEKEND COVERAGE: [facility] COVERAGE: Patient admitted to [facility] From 00 - 1629, please contact pager [phone] for patient issues. From 1630 - 07, please contact the Night Hospitalist on pager [phone] for patient issues. Subjective INTERVAL HPI: Patient seen and examined. Patient had told nursing he was feeling badly this morning - relative hypotension noted, worsening leukocytosis - started zosyn, fluids ordered, repeat CT abd/pelvis - ativan ordered. MEDICATIONS: Reviewed Objective PHYSICAL EXAM: BP 89/57 Pulse 63 Temp (Src) 98.6 (Axillary) Resp 20 Ht [ISAAC[ (0.00m) SpO2 95% O2 Therapy: Room Air, Liters: 0.00, %FIO2: 0 Physical Exam Performed GENERAL: Resting comfortably in bed, no distress, (+) jaundice LUNGS: Lungs clear to auscultation, Good diaphragmatic excursion CARDIAC: Normal S1 and S2; no rubs, murmurs, or gallops ABDOMEN: Abdomen soft, non-tender, BS normal, No masses or organomegaly, (+) biliary drain EXTREMITIES: Extremities normal, no deformities, edema, clubbing or skin discoloration. Good capillary refill., No ulcers NEURO: Cranial nerves II-XII intact Lines, Drains, and Airways Line Peripheral 08/30/20 0847 Right Forearm 22 Gauge 10 days Peripheral 09/03/20 1348 Right Hand 18 Gauge 6 days Drain Drain/Tube 09/03/20 1446 Biliary Right Anterior;Upper Quadrant Abdomen Drain #1 6 days External Collection Device 09/04/20 2100 4 days DATA: Diagnostic tests reviewed for today's visit: Most recent labs Assessment/Plan The patient is a 65 year old man with history of MRDD, seizure disorder and cirrhosis who lives in a senior care who was transferred from [facility] for obstructive jaundice. ? Obstructive jaundice secondary to choledocholithiasis --Presented with jaundice and abdominal discomfort. --Labs suggestive of obstructive pattern --Hepatitis and EBV negative --Could not do MRI based on metal in body per OSH report. --CT abdomen/pelvis done on 08/29 showed mild intrahepatic biliary dilatation with evidence of choledocholithiasis. --ERCP on 08/30 and found to have stenotic major papillary. Pancreatic stent placed in ventral pancreatic duct with biliary sphincterotomy. --Repeat ERCP on 09/01-failed cannulation of the bile duct, one pancreatic stent placed in ventral pancreatic duct --Was treated with empiric Zosyn from 08/29-09/05 --Underwent PTHC drain placement on 09/03 --IR recs noted --Currently noted to be on a regular diet --GI recs noted - stable for discharge, will need drain management per IR, will need follow-up with Dr. Torres (liver specialist) Relative hypotension and worsening leukocytosis --Noted on 09/09 - started Zosyn, fluids ordered, blood cultures ordered, lactate negative, ordered repeat CT abd/pelvis --ID recs appreciated Elevated Bilirubin/LFTs secondary to above --Continue to monitor ? History of cirrhosis with noted thrombocytopenia and coagulopathy --As per records from [facility] he had liver biopsy done in the past which showed early signs of cirrhosis (unclear etiology) --Platelets currently noted to be stable at 106 --Ammonia level WNL --Noted to have elevated INR as well. Received dose of vitamin K on 08/30, currently noted to be stable at 1 --Outpatient follow-up with Dr. Torres (liver specialist) Anemia, normocytic --No overt signs of bleeding --No evidence of TIERA, LDH negative --Occult stool as able --Hb currently noted to be stable at 9.8 --Continue to monitor Hyponatremia, slight, resolvd --Na+ currently noted to be stable at 139 ? Seizure disorder --Continue divalproex, lamotrigine and zonisamide Pauses on telemetry --Noted by nursing on 09/05 to be having multiple 2-3 second pauses on telemetry --Patient noted to be asymptomatic --Cardio recs noted - no further evaluation noted ? Chronic disability --He is wheelchair-bound and is dependent on daily activities --PT/OT recs - [facility], patient will need to go to SNF for biliary drain ? MRDD --Patient lives in a senior care and needs help with his daily activities --In the past consent was provided by advocacy and protective services. Call [phone] for every consent. Medication and Non-Pharmacologic VTE Prophylaxis/Anticoagulants 08/28/202014 pneumatic compression stockings ([place], [place]) 08/28/201814 activity - mobilize patient ([place], [place]) VTE Prophylaxis: VTE prophylaxis appropriate Disposition: SNF Plan of care discussed with: Patient, RN SIGNATURE: Irene Worrell DO PATIENT NAME: Jesus Shaver DATE: September 09, 2020 TIME: 4:10 PM etx [id number] [facility] 09-08-2020 Note HNO ID: [id number] Author: Irene Worrell DO Service: Hospital Medicine Author Type: Physician Type: Progress Notes Filed: 09/08/2020 2:52 PM Note Text: DEPARTMENT OF HOSPITAL MEDICINE PROGRESS NOTE SERVICE DATE: 09/08/2020 SERVICE TIME: 1:21 PM Hospital Medicine/Primary Attending: Irene Worrell, NIGHT AND WEEKEND COVERAGE: [facility] COVERAGE: Patient admitted to [facility] From 699 - 1629, please contact pager [phone] for patient issues. From 1629 - 699, please contact the Night Hospitalist on pager [phone] for patient issues. Subjective INTERVAL HPI: Patient seen and examined. Patient currently resting in bed - patient currently without complaints. MEDICATIONS: Reviewed Objective PHYSICAL EXAM: BP 122/52 Pulse 62 Temp (Src) 98.2 (Axillary) Resp 16 Ht [ISAAC[ (0.00m) SpO2 95% O2 Therapy: Room Air Physical Exam Performed GENERAL: Resting comfortably in bed, no distress, (+) jaundice LUNGS: Lungs clear to auscultation, Good diaphragmatic excursion CARDIAC: Normal S1 and S2; no rubs, murmurs, or gallops ABDOMEN: Abdomen soft, non-tender, BS normal, No masses or organomegaly, (+) biliary drain EXTREMITIES: Extremities normal, no deformities, edema, clubbing or skin discoloration. Good capillary refill., No ulcers NEURO: Cranial nerves II-XII intact Lines, Drains, and Airways Line Peripheral 08/30/20 0847 Right Forearm 22 Gauge 9 days Peripheral 09/03/20 1348 Right Hand 18 Gauge 4 days Drain Drain/Tube 09/03/20 1446 Biliary Right Anterior;Upper Quadrant Abdomen Drain #1 4 days External Collection Device 09/04/20 2100 3 days DATA: Diagnostic tests reviewed for today's visit: Most recent labs Assessment/Plan The patient is a 65 year old man with history of MRDD, seizure disorder and cirrhosis who lives in a senior care who was transferred from [facility] for obstructive jaundice. ? Obstructive jaundice secondary to choledocholithiasis --Presented with jaundice and abdominal discomfort. --Labs suggestive of obstructive pattern --Hepatitis and EBV negative --Could not do MRI based on metal in body per OSH report. --CT abdomen/pelvis done on 08/29 showed mild intrahepatic biliary dilatation with evidence of choledocholithiasis. --ERCP on 08/30 and found to have stenotic major papillary. Pancreatic stent placed in ventral pancreatic duct with biliary sphincterotomy. --Repeat ERCP on 09/01-failed cannulation of the bile duct, one pancreatic stent placed in ventral pancreatic duct --Was treated with empiric Zosyn from 08/29-09/05 --Underwent PTHC drain placement on 09/03 --IR recs noted --Currently noted to be on a regular diet --GI recs noted - stable for discharge, will need drain management per IR, will need follow-up with Dr. Torres (liver specialist) Elevated Bilirubin/LFTs secondary to above, improving --Continue to monitor ? History of cirrhosis with noted thrombocytopenia and coagulopathy --As per records from [facility] he had liver biopsy done in the past which showed early signs of cirrhosis (unclear etiology) --Platelets currently noted to be stable at 106 --Ammonia level WNL --Noted to have elevated INR as well. Received dose of vitamin K on 08/30, currently noted to be stable at 1 --Outpatient follow-up with Dr. Torres (liver specialist) Anemia, normocytic --No overt signs of bleeding --No evidence of TIERA, LDH negative --Occult stool as able --Hb currently noted to be stable at 10.2 --Continue to monitor Hyponatremia, slight --Na+ currently noted to be stable at 134 --Continue to monitor ? Seizure disorder --Continue divalproex, lamotrigine and zonisamide Pauses on telemetry --Noted by nursing on 09/05 to be having multiple 2-3 second pauses on telemetry --Patient noted to be asymptomatic --Cardio recs noted - no further evaluation noted ? Chronic disability --He is wheelchair-bound and is dependent on daily activities --PT/OT recs - [facility], patient will need to go to SNF for biliary drain ? MRDD --Patient lives in a senior care and needs help with his daily activities --In the past consent was provided by advocacy and protective services. Call [phone] for every consent. Medication and Non-Pharmacologic VTE Prophylaxis/Anticoagulants 08/28/202014 pneumatic compression stockings ([place], [place]) 08/28/201814 activity - mobilize patient ([place]) VTE Prophylaxis: VTE prophylaxis appropriate Disposition: SNF Plan of care discussed with: Patient, case management SIGNATURE: Irene Worrell DO PATIENT NAME: Jesus Shaver DATE: September 08, 2020 TIME: 2:51 PM etx [id number] [facility] 09-08-2020 Note HNO ID: [id number] Author: EZE Canales Service: Care Management Author Type: Supervisor Public Health Nursing Type: Care Mgt Progress Note Filed: 09/08/2020 1:59 PM Note Text: CARE MANAGEMENT PROGRESS NOTE SERVICE DATE: 09/08/2020 SERVICE TIME: 10:53 AM LOS: 11 days Needs Prior to Discharge: Accepting Facility;Bed Availability;Level of Care;Discharge Transportation Pt unable to return to and will need SNF at [place]. SW left for Guardian- [facility]- [place]- [phone] Requesting SNF preferences. Awaiting return call. Pt has been accepted at the SNF he was previously at - [facility] . Pt will require LOC. Will begin that process once SNF preference from guardian is confirmed. SW following. UPDATE- Spoke with guardian who confirmed that she would prefer pt to admit to [facility] . Will require repeat COVID- ordered. Initiated LOC through [facility] and will require completion prior to [place]. BLS tentatively scheduled for 5pm on 09/09 pending LOC is obtained. SIGNATURE: EZE Canales PATIENT NAME: Jesus Shaver DATE: September 08, 2020 TIME: 10:53 AM PAGER/CONTACT #: [phone] [facility] 09-07-2020 Note HNO ID: [id number] Author: Irene Worrell DO Service: Hospital Medicine Author Type: Physician Type: Progress Notes Filed: 09/07/2020 2:59 PM Note Text: DEPARTMENT OF HOSPITAL MEDICINE PROGRESS NOTE SERVICE DATE: 09/07/2020 SERVICE TIME: 2:18 PM Hospital Medicine/Primary Attending: Irene Worrell DO NIGHT AND WEEKEND COVERAGE: [facility] COVERAGE: Patient admitted to [facility] From 0700 - 1630, please contact pager [phone] for patient issues. From 1630 - 0700, please contact the Night Hospitalist on pager [phone] for patient issues. Subjective INTERVAL HPI: Patient seen and examined. Patient currently resting in bed - currently states that he is cold. MEDICATIONS: Reviewed Objective PHYSICAL EXAM: BP 90/46 Pulse 60 Temp (Src) 97.7 (Oral) Resp 16 Ht [ISAAC[ (0.00m) SpO2 98% O2 Therapy: Room Air Physical Exam Performed GENERAL: Resting comfortably in bed, no distress, (+) jaundice LUNGS: Lungs clear to auscultation, Good diaphragmatic excursion CARDIAC: Normal S1 and S2; no rubs, murmurs, or gallops ABDOMEN: Abdomen soft, non-tender, BS normal, No masses or organomegaly, (+) biliary drain EXTREMITIES: Extremities normal, no deformities, edema, clubbing or skin discoloration. Good capillary refill., No ulcers NEURO: Cranial nerves II-XII intact Lines, Drains, and Airways Line Peripheral 08/30/20 0847 Right Forearm 22 Gauge 8 days Peripheral 09/03/20 1348 Right Hand 18 Gauge 4 days Drain Drain/Tube 09/03/20 1446 Biliary Right Anterior;Upper Quadrant Abdomen Drain #1 4 days External Collection Device 09/04/20 2100 2 days DATA: Diagnostic tests reviewed for today's visit: Most recent labs Assessment/Plan The patient is a 65 year old man with history of MRDD, seizure disorder and cirrhosis who lives in a senior care who was transferred from [facility] for obstructive jaundice. ? Obstructive jaundice secondary to choledocholithiasis --Presented with jaundice and abdominal discomfort. --Labs suggestive of obstructive pattern --Hepatitis and EBV negative --Could not do MRI based on metal in body per OSH report. --CT abdomen/pelvis done on 08/29 showed mild intrahepatic biliary dilatation with evidence of choledocholithiasis. --ERCP on 08/30 and found to have stenotic major papillary. Pancreatic stent placed in ventral pancreatic duct with biliary sphincterotomy. --Repeat ERCP on 09/01-failed cannulation of the bile duct, one pancreatic stent placed in ventral pancreatic duct --Was treated with empiric Zosyn from 08/29-09/05 --Underwent PTHC drain placement on 09/03 --IR recs noted --Currently noted to be on a regular diet --GI recs noted - stable for discharge, will need drain management per IR, will need follow-up with Dr. Torres (liver specialist) Elevated Bilirubin/LFTs secondary to above, improving --Continue to monitor ? History of cirrhosis with noted thrombocytopenia and coagulopathy --As per records from [facility] he had liver biopsy done in the past which showed early signs of cirrhosis (unclear etiology) --Platelets currently noted to be stable at 106 --Ammonia level WNL --Noted to have elevated INR as well. Received dose of vitamin K on 08/30, currently noted to be stable at 1.1 --Outpatient follow-up with Dr. Torres (liver specialist) Anemia, normocytic --No overt signs of bleeding --No evidence of TIERA, LDH negative --Occult stool as able --Hb currently noted to be stable at 10.8 --Continue to monitor ? Seizure disorder --Continue divalproex, lamotrigine and zonisamide Pauses on telemetry --Noted by nursing on 09/05 to be having multiple 2-3 second pauses on telemetry --Patient noted to be asymptomatic --Cardio recs appreciated ? Chronic disability --He is wheelchair-bound and is dependent on daily activities --PT/OT recs - [facility] ? MRDD --Patient lives in a senior care and needs help with his daily activities --In the past consent was provided by advocacy and protective services. Call [phone] for every consent. Hypokalemia --Replace Medication and Non-Pharmacologic VTE Prophylaxis/Anticoagulants 08/28/202014 pneumatic compression stockings ([place], [place]) 08/28/201814 activity - mobilize patient ([place]) VTE Prophylaxis: VTE prophylaxis appropriate Disposition: SNF Plan of care discussed with: Patient, case management SIGNATURE: Irene Worrell DO PATIENT NAME: Jesus Shaver DATE: September 07, 2020 TIME: 2:59 PM etx [id number] [facility] 09-07-2020 Note HNO ID: [id number] Author: Radha Arnold PA-C Service: ? Author Type: Physician Book[employer] Clerk Type: Progress Notes Filed: 09/07/2020 12:10 PM Note Text: INTERVENTIONAL RADIOLOGY PROGRESS NOTE SERVICE DATE: September 07, 2020 SERVICE TIME: 9:45 AM ASSESSMENT/PLAN: 65 year old male with a PMH of cirrhosis, obstructive jaundice 2/2 choledocholithiasis, MRDD, and seizure disorder. Subsequently, PPD# 4 from IR placement of Right internal-external biliary drainage catheter. LFTs remain elevated but trending down. Patient jaundice. Denies abdominal pain with palpation. Approximately 75 mL of bilious drainage in drainage bag. No blood or clots noted. Tube flushed with NS without resistance or leaking and immediate return of flush noted. IR will sign off. - Case discussed with Dr. Alonzo - Leave biliary drainage catheter to drainage until routine exchange in 6 weeks. Do not recommend capping given continued elevated LFTs. Will re-evaluate for capping trial at that time. - Plan per primary service. - Labwork: TBili 10.2 09/07 (11.3 09/06, 12.0 09/05, 15.4 09/04), Alk Phos 312 09/07 (347 09/06, 404 09/05, 439 09/04) , H/H stable , WBC: 8.78 09/07 - Trending down - Drain output: Rt: 325 ml /24hr, consistent output documented since placement. - DO NOT USE 3-WAY STOPCOCK to connect drainage catheter to drainage bag. - Please flush biliary drain Q12 hours while inpatient, Dressing changes every other day. Orders in Epic, discussed with nursing. - Please notify IR if leaking around insertion site, output stops, or symptoms of cholangitis/obstruction occur. - Please see below for biliary drain care. -Interventional Radiology will schedule a follow-up clinic visit in 2 weeks for a drain assessment. - Interventional Radiology will schedule 6 week return appointment for a routine exchange. - Supplies and IR educational handout at bedside. Unable to complete tube teaching. Home tube care instruction in discharge note and using the links below. - retirement drain plan (IRTC): GI, per GI patient to follow up with Dr. Torres Additional printouts of at-home instructions for care of biliary tube can be located at: [email or web address] A patient education video for care of a biliary drain is available on [email or web address]. Please use this link: [email or web address] IR will sign off on this patient. For routine concerns M- F 7- 4:30 page the IR KEYLA: [id number] or call [facility]: [phone]/Radiology Nurses: [phone]. After hours please call [facility] IR staff Day/ Night BILIARY DRAIN CARE: 1) Leave drain to gravity at all times 2) Remove bag at luer lock connection and gently flush drain with 10 ml NS every other day, unless directed differently in care plan above. 3) Gently cleanse area around drain insertion site with warm soap and water, rinse, pat dry and apply clean dry dressing every other day and PRN wet or soiled. IR COURSE: 09/03/[address] Bili IMPRESSION: TRANSHEPATIC CHOLANGIOGRAM DEMONSTRATES CHOLEDOCHOLITHIASIS CAUSING BILIARY OBSTRUCTION. ATTEMPTED STONE REMOVAL WAS UNSUCCESSFUL. RIGHT INTERNAL-EXTERNAL BILIARY DRAINAGE PLACEMENT. PLAN: Flush catheter every other day with sterile normal saline to maintain patency. Catheter may be allowed to drain passively to bag. Flush and cap catheter for internal drainage prior to discharge. Patient may return in 6 weeks for exchange and repeat attempt at stone removal. SUBJECTIVE/INTERVAL HPI: Limited assessment. Patient states he does not feel good because he was cold. OBJECTIVE: BP 114/52 Pulse (!) 55 Temp 36.5 ?C (97.7 ?F) (Oral) Resp 16 SpO2 97% GENERAL: No acute distress, Jaundice ABDOMEN: Abdomen soft, non-tender with palpation. BILIARY DRAIN: Output 325 mL bilious in color, flushed at bedside without resistance or leaking. Had immediate return of flush. No erythema noted around insertion site. Site cleansed and new C/D/I dressing applied. CBC, Coags, BMP, Mg, Phos Recent Labs 09/07/20 0634 09/06/20 0640 09/05/20 05 WBC 8.78 9.70 9.75 HB 10.1* 10.8* 11.3* HCT 28.7* 30.1* 31.6* PLT 106* 107* 99* INR 1.0 1.0 1.1 NA 135* 136 139 K 3.5* 4.2 4.0 CHLOR 102 102 104 CO2 23 25 27 BUN 18 16 9 CREAT 0.92 0.96 0.93 GLUC 67* 59* 68* CA 9.4 9.9 9.7 MG 2.2 2.3 2.1 P 2.7 2.7 2.2* Liver Function, Amylase, AND Lipase Recent Labs 09/07/20 0634 09/06/20 0640 09/05/20 0527 TPROT 5.3* 5.4* 5.4* ALB 2.6* 2.7* 2.7* ALT 50 57* 68* AST 71* 68* 76* ALKPHOS 312* 347* 404* TBILI 10.2* 11.3* 12.0* Date 09/06/20 07 - 09/07/20 0659 09/07/20 07 - 09/08/20 0659 Shift 3858-6039 6612-9061 6841-7916 24 Hour Total 5257-2100 0846-2821 8824-2057 24 Hour Total INTAKE PO 480 120 60 660 PO 480 120 60 660 Shift Total 480 120 60 660 OUTPUT Urine 250 781 359 1217 Output ( External Collection Device 09/04/20 210 (more content not included)... [facility] 09-06-2020 Note HNO ID: [id number] Author: Irene Worrell DO Service: Hospital Medicine Author Type: Physician Type: Progress Notes Filed: 09/07/2020 2:58 PM Note Text: DEPARTMENT OF HOSPITAL MEDICINE PROGRESS NOTE SERVICE DATE: 09/06/2020 SERVICE TIME: 2:18 PM Hospital Medicine/Primary Attending: Irene Worrell DO NIGHT AND WEEKEND COVERAGE: [facility] COVERAGE: Patient admitted to [facility] From 0700 - 1630, please contact pager [phone] for patient issues. From 1630 - 0700, please contact the Night Hospitalist on pager [phone] for patient issues. Subjective INTERVAL HPI: Patient seen and examined. Patient currently resting in bed - no current complaints noted. MEDICATIONS: Reviewed Objective PHYSICAL EXAM: BP 99/46 Pulse 52 Temp (Src) 97.9 (Axillary) Resp 18 Ht [ISAAC[ (0.00m) SpO2 97% O2 Therapy: Room Air Physical Exam Performed GENERAL: Resting comfortably in bed, no distress, (+) jaundice LUNGS: Lungs clear to auscultation, Good diaphragmatic excursion CARDIAC: Normal S1 and S2; no rubs, murmurs, or gallops ABDOMEN: Abdomen soft, non-tender, BS normal, No masses or organomegaly, (+) biliary drain EXTREMITIES: Extremities normal, no deformities, edema, clubbing or skin discoloration. Good capillary refill., No ulcers NEURO: Cranial nerves II-XII intact Lines, Drains, and Airways Line Peripheral 08/30/20 0847 Right Forearm 22 Gauge 7 days Peripheral 09/03/20 1348 Right Hand 18 Gauge 3 days Drain Drain/Tube 09/03/20 1446 Biliary Right Anterior;Upper Quadrant Abdomen Drain #1 2 days External Collection Device 09/04/20 2100 1 day DATA: Diagnostic tests reviewed for today's visit: Most recent labs Assessment/Plan The patient is a 65 year old man with history of MRDD, seizure disorder and cirrhosis who lives in a senior care who was transferred from [facility] for obstructive jaundice. ? Obstructive jaundice secondary to choledocholithiasis --Presented with jaundice and abdominal discomfort. --Labs suggestive of obstructive pattern --Hepatitis and EBV negative --Could not do MRI based on metal in body per OSH report. --CT abdomen/pelvis done on 08/29 showed mild intrahepatic biliary dilatation with evidence of choledocholithiasis. --ERCP on 08/30 and found to have stenotic major papillary. Pancreatic stent placed in ventral pancreatic duct with biliary sphincterotomy. --Repeat ERCP on 09/01-failed cannulation of the bile duct, one pancreatic stent placed in ventral pancreatic duct --Was treated with empiric Zosyn from 08/29-09/05 --Underwent PTHC drain placement on 09/03 --Currently noted to be on a regular diet --GI recs noted - stable for discharge, will need drain management per IR, will need follow-up with Dr. Torres (liver specialist) Elevated Bilirubin/LFTs secondary to above, improving --Continue to monitor ? History of cirrhosis with noted thrombocytopenia and coagulopathy --As per records from [facility] he had liver biopsy done in the past which showed early signs of cirrhosis (unclear etiology) --Platelets currently noted to be stable at 93 --Ammonia level WNL --Noted to have elevated INR as well. Received dose of vitamin K on 08/30, currently noted to be stable at 1.1 --Outpatient follow-up with Dr. Torres (liver specialist) Anemia, normocytic --No overt signs of bleeding --No evidence of TIERA, LDH negative --Occult stool as able --Hb currently noted to be stable at 10.8 --Continue to monitor ? Seizure disorder --Continue divalproex, lamotrigine and zonisamide Pauses on telemetry --Noted by nursing on 09/05 to be having multiple 2-3 second pauses on telemetry --Patient noted to be asymptomatic --Cardio recs appreciated ? Chronic disability --He is wheelchair-bound and is dependent on daily activities --PT/OT recs appreciated ? MRDD --Patient lives in a senior care and needs help with his daily activities --In the past consent was provided by advocacy and protective services. Call [phone] for every consent. Medication and Non-Pharmacologic VTE Prophylaxis/Anticoagulants 08/28/202014 pneumatic compression stockings ([place]) 08/28/201814 activity - mobilize patient ([place], [place]) VTE Prophylaxis: VTE prophylaxis appropriate Disposition: To be determined Plan of care discussed with: Patient, case management SIGNATURE: Irene Worrell DO PATIENT NAME: Jesus Shaver DATE: September 06, 2020 TIME: 2:19 PM etx [id number] [facility] 09-05-2020 Note HNO ID: [id number] Author: Irene Worrell DO Service: Hospital Medicine Author Type: Physician Type: Progress Notes Filed: 09/07/2020 2:58 PM Note Text: DEPARTMENT OF HOSPITAL MEDICINE PROGRESS NOTE SERVICE DATE: 09/05/2020 SERVICE TIME: 10:55 AM Hospital Medicine/Primary Attending: Irene Worrell DO NIGHT AND WEEKEND COVERAGE: [facility] COVERAGE: Patient admitted to [facility] From 0700 - 1630, please contact pager [phone] for patient issues. From 1630 - 0700, please contact the Night Hospitalist on pager [phone] for patient issues. Subjective INTERVAL HPI: Patient seen and examined. Patient currently noted to be resting comfortably in bed - no current signs of distress. Awaiting PT/OT eval. MEDICATIONS: Reviewed Objective PHYSICAL EXAM: BP 84/50 Pulse 62 Temp (Src) 98 (Oral) Resp 18 Ht [ISAAC[ (0.00m) SpO2 95% O2 Therapy: Room Air Physical Exam Performed GENERAL: Resting comfortably in bed, no distress, (+) jaundice LUNGS: Lungs clear to auscultation, Good diaphragmatic excursion CARDIAC: Normal S1 and S2; no rubs, murmurs, or gallops ABDOMEN: Abdomen soft, non-tender, BS normal, No masses or organomegaly, (+) biliary drain EXTREMITIES: Extremities normal, no deformities, edema, clubbing or skin discoloration. Good capillary refill., No ulcers NEURO: Cranial nerves II-XII intact Lines, Drains, and Airways Line Peripheral 08/30/20 0847 Right Forearm 22 Gauge 6 days Peripheral 09/03/20 1348 Right Hand 18 Gauge 1 day Drain Drain/Tube 09/03/20 1446 Biliary Right Anterior;Upper Quadrant Abdomen Drain #1 1 day External Collection Device 09/04/20 2100 <1 day DATA: Diagnostic tests reviewed for today's visit: Most recent labs Assessment/Plan The patient is a 65 year old man with history of MRDD, seizure disorder and cirrhosis who lives in a senior care who was transferred from [facility] for obstructive jaundice. ? Obstructive jaundice secondary to choledocholithiasis --Presented with jaundice and abdominal discomfort. --Labs suggestive of obstructive pattern --Hepatitis and EBV negative --Could not do MRI based on metal in body per OSH report. --CT abdomen/pelvis done on 08/29 showed mild intrahepatic biliary dilatation with evidence of choledocholithiasis. --ERCP on 08/30 and found to have stenotic major papillary. Pancreatic stent placed in ventral pancreatic duct with biliary sphincterotomy. --Repeat ERCP on 09/01-failed cannulation of the bile duct, one pancreatic stent placed in ventral pancreatic duct --Was treated with empiric Zosyn from 08/29-09/05 --Underwent PTHC drain placement on 09/03 --Currently noted to be on a regular diet --GI recs noted - stable for discharge, will need drain management per IR, will need follow-up with Dr. Torres (liver specialist) Elevated Bilirubin/LFTs secondary to above, improving --Continue to monitor ? History of cirrhosis with noted thrombocytopenia and coagulopathy --As per records from [facility] he had liver biopsy done in the past which showed early signs of cirrhosis (unclear etiology) --Platelets currently noted to be stable at 93 --Ammonia level WNL --Noted to have elevated INR as well. Received dose of vitamin K on 08/30, currently noted to be stable at 1.1 --Outpatient follow-up with Dr. Torres (liver specialist) Anemia, normocytic --No overt signs of bleeding --No evidence of TIERA, LDH negative --Occult stool as able --Hb currently noted to be stable at 11.3 --Continue to monitor ? Seizure disorder --Continue divalproex, lamotrigine and zonisamide Pauses on telemetry --Noted by nursing on 09/05 to be having multiple 2-3 second pauses on telemetry --Patient noted to be asymptomatic --Cardio recs appreciated ? Chronic disability --He is wheelchair-bound and is dependent on daily activities --PT/OT recs appreciated ? MRDD --Patient lives in a senior care and needs help with his daily activities --In the past consent was provided by advocacy and protective services. Call [phone] for every consent. Medication and Non-Pharmacologic VTE Prophylaxis/Anticoagulants 08/28/202014 pneumatic compression stockings ([place], [place]) 08/28/201814 activity - mobilize patient ([place]) VTE Prophylaxis: VTE prophylaxis appropriate Disposition: To be determined Plan of care discussed with: RN SIGNATURE: Irene Worrell DO PATIENT NAME: Jesus Shaver DATE: September 05, 2020 TIME: 11:43 AM etx [id number] [facility] 09-04-2020 Note HNO ID: [id number] Author: Irene Worrell DO Service: Hospital Medicine Author Type: Physician Type: Progress Notes Filed: 09/04/2020 11:09 AM Note Text: DEPARTMENT OF HOSPITAL MEDICINE PROGRESS NOTE SERVICE DATE: 09/04/2020 SERVICE TIME: 10:55 AM Hospital Medicine/Primary Attending: Irene Worrell DO NIGHT AND WEEKEND COVERAGE: [facility] COVERAGE: Patient admitted to [facility] From 00 - 1629, please contact pager [phone] for patient issues. From 1630 - 0700, please contact the Night Hospitalist on pager [phone] for patient issues. Subjective INTERVAL HPI: Patient seen and examined. Patient currently noted to be resting comfortably in bed - currently without complaints. Currently tolerating liquid diet, will advance to full liquid diet. MEDICATIONS: Reviewed Objective PHYSICAL EXAM: BP 110/48 Pulse 54 Temp (Src) 98.2 (Oral) Resp 17 Ht [ISAAC[ (0.00m) SpO2 97% O2 Therapy: Room Air Physical Exam Performed GENERAL: Alert, no distress, cooperative, (+) jaundice LUNGS: Lungs clear to auscultation, Good diaphragmatic excursion CARDIAC: Normal S1 and S2; no rubs, murmurs, or gallops ABDOMEN: Abdomen soft, non-tender, BS normal, No masses or organomegaly, (+) biliary drain EXTREMITIES: Extremities normal, no deformities, edema, clubbing or skin discoloration. Good capillary refill., No ulcers NEURO: Cranial nerves II-XII intact Lines, Drains, and Airways Line Peripheral 08/30/20 0847 Right Forearm 22 Gauge 5 days Peripheral 09/03/20 1348 Right Hand 18 Gauge <1 day Drain Drain/Tube 09/03/20 1446 Biliary Right Anterior;Upper Quadrant Abdomen Drain #1 <1 day DATA: Diagnostic tests reviewed for today's visit: Most recent labs Assessment/Plan The patient is a 65 year old man with history of MRDD, seizure disorder and cirrhosis who lives in a senior care who was transferred from [facility] for obstructive jaundice. ? Obstructive jaundice --Presented with jaundice and abdominal discomfort. --Labs suggestive of obstructive pattern --Hepatitis and EBV negative --Could not do MRI based on metal in body per OSH report. --CT abdomen/pelvis done on 08/29 showed mild intrahepatic biliary dilatation with evidence of choledocholithiasis. --ERCP on 08/30 and found to have stenotic major papillary. Pancreatic stent placed in ventral pancreatic duct with biliary sphincterotomy. --Repeat ERCP on 09/01-failed cannulation of the bile duct, one pancreatic stent placed in ventral pancreatic duct --Currently noted to be on empiric Zosyn --Underwent PTHC drain placement on 09/03 --Currently tolerating liquid diet, will advance to full liquid diet and monitor --GI recs appreciated Elevated Bilirubin/LFTs secondary to above, improving --Continue to monitor ? History of cirrhosis with noted thrombocytopenia and coagulopathy --As per records from [facility] he had liver biopsy done in the past which showed early signs of cirrhosis (unclear etiology) --Platelets currently noted to be stable at 93 --Check ammonia level --Noted to have elevated INR as well. Received dose of vitamin K on 08/30 Anemia, normocytic --No overt signs of bleeding --Will check iron studies, occult stool, LDH --Hb currently noted to be stable at 10.7 --Continue to monitor ? Seizure disorder --Continue divalproex, lamotrigine and zonisamide ? Chronic disability --He is wheelchair-bound and is dependent on daily activities --PT/OT recs appreciated ? MRDD --Patient lives in a senior care and needs help with his daily activities --In the past consent was provided by advocacy and protective services. Call [phone] for every consent. Hypokalemia --Replace Medication and Non-Pharmacologic VTE Prophylaxis/Anticoagulants 08/28/202014 pneumatic compression stockings ([place], [place]) 08/28/201814 activity - mobilize patient ([place]) VTE Prophylaxis: VTE prophylaxis appropriate Disposition: To be determined Plan of care discussed with: Patient SIGNATURE: Irene Worrell DO PATIENT NAME: Jesus Shaver DATE: September 04, 2020 TIME: 10:55 AM etx [id number] [facility] 09-03-2020 Note HNO ID: [id number] Author: Anuja Patel MD Service: Hospital Medicine Author Type: Physician Type: Progress Notes Filed: 09/03/2020 2:25 PM Note Text: DEPARTMENT OF HOSPITAL MEDICINE PROGRESS NOTE SERVICE DATE: 09/03/2020 SERVICE TIME: 2:22 PM Hospital Medicine/Primary Attending: Anuja Patel MD NIGHT AND WEEKEND COVERAGE: [facility] COVERAGE: Patient admitted to [facility] From 0700 - 1630, please contact pager [phone] for patient issues. From 1630 - 0700, please contact the Night Hospitalist on pager [phone] for patient issues. Subjective INTERVAL HPI: Denied having any pain at that moment. He did not have biliary drain placed by IR on 09/02 but scheduled for 09/03. Awaiting procedure at this time. Current Facility-Administered Medications Medication Dose Route Frequency - [MAR Hold due to Transfer] divalproex DR 1,500 mg tab(s) (DEPAKOTE) 1,500 mg ORAL AT BEDTIME - [MAR Hold due to Transfer] zonisamide 100 mg cap(s) (ZONEGRAN) 100 mg ORAL BID - [MAR Hold due to Transfer] tamsulosin 0.4 mg cap(s) (FLOMAX) 0.4 mg ORAL AT BEDTIME - [MAR Hold due to Transfer] senna 8.6 mg tab(s) (SENOKOT) 8.6 mg ORAL BID - [MAR Hold due to Transfer] polyethylene glycol 3350 17 g packet (MIRALAX, GLYCOLAX) 17 g ORAL DAILY - [MAR Hold due to Transfer] lamoTRIgine 50 mg tab(s) (LaMICtal) 50 mg ORAL BID - [MAR Hold due to Transfer] piperacillin-tazobactam iv piggyback 3.375 g in dextrose (iso-osmotic) 50 mL (ZOSYN) 3.375 g INTRAVENOUS q 6 H - [MAR Hold due to Transfer] dextrose 5% in NaCl 0.45% with 20 mEq/L KCl iv infusion 80 mL/hr INTRAVENOUS CONTINUOUS - cefTRIAXone 1 g in D5W 100 mL MB+ (ROCEPHIN) 1 g INTRAVENOUS ONCE Facility-Administered Medications Ordered in Other Encounters Medication Dose Route Frequency - NaCl 0.9% iv infusion INTRAVENOUS X (ONE-STEP ONLY) CONTINUOUS PRN - midazolam (PF) injection (VERSED) INTRAVENOUS PRN - fentaNYL 50 mcg/mL injection (SUBLIMAZE) INTRAVENOUS PRN - propofol injection (DIPRIVAN) INTRAVENOUS PRN - ePHEDrine injection (AKOVAZ) INTRAVENOUS PRN - lidocaine HCl (PF) 20 mg/mL (2 %) injection INTRAVENOUS PRN - PHENYLephrine 10 mg/mL injection (TOM-SYNEPHRINE) INTRAVENOUS PRN Objective PHYSICAL EXAM: BP 106/58 Pulse 58 Temp (Src) 98.2 (Oral) Resp 18 Ht [ISAAC[ (0.00m) SpO2 98% O2 Therapy: Room Air Physical Exam Performed GENERAL: Alert, No Distress, Jaundiced SKIN: Yellow jaundice looking skin OROPHARYNX: Normal lips and mucosa LUNGS: Lungs clear to auscultation, Good diaphragmatic excursion CARDIAC: Normal S1 and S2; no rubs, murmurs, or gallops ABDOMEN: Abdomen soft, non-tender, BS normal, No masses or organomegaly EXTREMITIES: Extremities normal, no deformities, edema, clubbing or skin discoloration. Good capillary refill., No ulcers NEURO: Exam deferred Lines, Drains, and Airways Line Peripheral 08/30/20 0847 Right Forearm 22 Gauge 4 days Peripheral 09/03/20 1348 Right Hand 18 Gauge <1 day Airway Airway Other: See Comment 09/03/20 1339 <1 day Reviewed lines and needs to be continued: REASONS: Telemetry and Electrolyte replacement DATA: Diagnostic tests reviewed for today's visit: Most recent labs Most recent imaging Assessment/Plan Problem List Jaundice POA: Yes Seizure disorder (HCC) POA: Yes Ataxia POA: Yes Development delay POA: Yes Obstructive jaundice POA: Yes HOSPITAL COURSE: Jesus Shaver is a 65 year old man with history of MRDD who lives in a senior care was transferred from [facility] for obstructive jaundice. #Obstructive jaundice: Presented with yellowish discoloration of skin and abdominal discomfort. Labs suggestive of obstructive pattern.LFTs continue to trend up vs stable. T bili 16.3, alk phos 515, ALT 97, AST 139 today this is slightly increased from yesterday CT abdomen/pelvis done on 08/29 showed mild intrahepatic biliary dilatation with evidence of choledocholithiasis. Appreciate gastroenterology recommendations. ERCP on 08/30 and found to have stenotic major papillary. Pancreatic stent placed in ventral pancreatic duct with biliary sphincterotomy. Repeat ERCP on 09/01-failed cannulation of the bile duct, one pancreatic stent placed in ventral pancreatic duct Continue IV antibiotics Plan for biliary drain to be placed by IR today. This procedure was canceled on 09/02 due to scheduling issues Keep n.p.o. and continue IV fluids Can advance to clear liquid diet after procedure #History of cirrhosis: As per records from [facility] he had liver biopsy done in the past which showed early signs of cirrhosis. His LFTs are elevated currently due to choledocholithiasis Noted to have elevated INR as well. Received dose of vitamin K on 08/30 #Seizure disorder: Continue divalproex, lamotrigine and zonisamide #Hypokalemia: Replace adequately #Chronic disability: He is wheelchair-bound and is dependent on daily activities Consult physical therapy #M (more content not included)... [facility] 09-03-2020 Note HNO ID: [id number] Author: Jada Headley APRN.MAINTENANCE MECHANIC SUPERVISOR Service: Anesthesiology Author Type: Nurse Ssds Mk 2 Advanced Operator Type: Anesthesia Procedure Notes Filed: 09/03/2020 1:58 PM Note Text: ANESTHESIOLOGY PROCEDURE NOTE Airway General Information Procedure Start Time/Medication Administration: 09/03/2020 1:39 PM Patient location: IR. Timeout Performed Pre-procedure: timeout performed Consent Obtained: Yes Patient identity confirmed: arm band, care senior engineering team leader and patient Staffing MAINTENANCE MECHANIC SUPERVISOR: Jada Headley APRN.MAINTENANCE MECHANIC SUPERVISOR Performed by: AWILDA Indications and Patient Condition Preoxygenated: yes Patient position: sniffing Manual In-Line Stabilization: No Difficult Mask: No Indications for airway management: anesthesia anesthesia circuit Method: asleep Cricoid Pressure: No Airway Accessory: LMA Final Airway Details Final airway type: supraglottic airway Number of attempts at approach: 2 Final Supraglottic Airway: i-gel Size 5 Seal Adequate: yes Airway not difficult Comments #4 iGel with leak, switched to #5 no issues SIGNATURE: Jada Headley APRN.CRNA PATIENT NAME: Jesus Shaver DATE: September 03, 2020 TIME: 1:56 PM CSN: [id number] [facility] 09-03-2020 Note HNO ID: [id number] Author: Jada Headley APRN.CRNA Service: Anesthesiology Author Type: Nurse Ssds Mk 2 Advanced Operator Type: Anesthesia Procedure Notes Filed: 09/03/2020 1:48 PM Note Text: ANESTHESIOLOGY PROCEDURE NOTE PIV General Information Procedure Start Time/Medication Administration: 09/03/2020 1:48 PM Patient Location: OR Staffing Anesthesiologist: Rosita West MD Performed by: anesthesiologist Preparation Sterility Preparation: hand hygiene performed prior to procedure, surgical cap used, mask used, skin prep agent completely dried prior to procedure Sterility Technique Not Completely Performed Due to Extreme Emergency: No Site Prep: alcohol Procedure Details Indication: need for IV access Needle Size/Type: 18 gauge angiocath Orientation: Right Location: Hand Imaging Guidance Used: No SIGNATURE: Jada Headley APRN.CRNA PATIENT NAME: Jesus Shaver DATE: September 03, 2020 TIME: 1:47 PM CSN: [id number] [facility] 09-02-2020 Note HNO ID: [id number] Author: Anuja Patel MD Service: Hospital Medicine Author Type: Physician Type: Progress Notes Filed: 09/02/2020 12:53 PM Note Text: DEPARTMENT OF HOSPITAL MEDICINE PROGRESS NOTE SERVICE DATE: 09/02/2020 SERVICE TIME: 12:39 PM Hospital Medicine/Primary Attending: Anuja Patel MD NIGHT AND WEEKEND COVERAGE: [facility] COVERAGE: Patient admitted to [facility] From 0700 - 1630, please contact pager [phone] for patient issues. From 1630 - 0700, please contact the Night Hospitalist on pager [phone] for patient issues. Subjective INTERVAL HPI: Was comfortably sleeping today.ERCP done yesterday was unsuccessful. Plan for PTHC today. Current Facility-Administered Medications Medication Dose Route Frequency - divalproex DR 1,500 mg tab(s) (DEPAKOTE) 1,500 mg ORAL AT BEDTIME - zonisamide 100 mg cap(s) (ZONEGRAN) 100 mg ORAL BID - tamsulosin 0.4 mg cap(s) (FLOMAX) 0.4 mg ORAL AT BEDTIME - senna 8.6 mg tab(s) (SENOKOT) 8.6 mg ORAL BID - polyethylene glycol 3350 17 g packet (MIRALAX, GLYCOLAX) 17 g ORAL DAILY - lamoTRIgine 50 mg tab(s) (LaMICtal) 50 mg ORAL BID - piperacillin-tazobactam iv piggyback 3.375 g in dextrose (iso-osmotic) 50 mL (ZOSYN) 3.375 g INTRAVENOUS q 6 H - dextrose 5% in NaCl 0.45% with 20 mEq/L KCl iv infusion 80 mL/hr INTRAVENOUS CONTINUOUS Objective PHYSICAL EXAM: BP 95/49 Pulse 49 Temp (Src) 97.3 (Axillary) Resp 18 Ht [ISAAC[ (0.00m) SpO2 98% O2 Therapy: Nasal Cannula, Liters: 2.00 Physical Exam Performed GENERAL: Alert, No Distress, Jaundiced SKIN: Yellow jaundice looking skin OROPHARYNX: Normal lips and mucosa LUNGS: Lungs clear to auscultation, Good diaphragmatic excursion CARDIAC: Normal S1 and S2; no rubs, murmurs, or gallops ABDOMEN: Abdomen soft, non-tender, BS normal, No masses or organomegaly EXTREMITIES: Extremities normal, no deformities, edema, clubbing or skin discoloration. Good capillary refill., No ulcers NEURO: Exam deferred Lines, Drains, and Airways Line Peripheral 08/30/20 0847 Right Forearm 22 Gauge 3 days Reviewed lines and needs to be continued: REASONS: Telemetry and Electrolyte replacement DATA: Diagnostic tests reviewed for today's visit: Most recent labs Most recent imaging Assessment/Plan Problem List Jaundice Seizure disorder (HCC) Ataxia Development delay Obstructive jaundice HOSPITAL COURSE: Jesus Shaver is a 65 year old man with history of MRDD who lives in a senior care was transferred from [facility] for obstructive jaundice. #Obstructive jaundice: Presented with yellowish discoloration of skin and abdominal discomfort. Labs suggestive of obstructive pattern.LFTs continue to trend up vs stable. T bili 15.8, alk phos 462, ALT 98, AST [address] abdomen/pelvis done on 08/29 showed mild intrahepatic biliary dilatation with evidence of choledocholithiasis. Appreciate gastroenterology recommendations. ERCP on 08/30 and found to have stenotic major papillary. Pancreatic stent placed in ventral pancreatic duct with biliary sphincterotomy. Repeat ERCP on 09/01-failed cannulation of the bile duct, one pancreatic stent placed in ventral pancreatic duct Continue IV antibiotics Plan for biliary drain to be placed by IR today. Keep n.p.o. and continue IV fluids Can advance to clear liquid diet after procedure #History of cirrhosis: As per records from [facility] he had liver biopsy done in the past which showed early signs of cirrhosis. His LFTs are elevated currently due to choledocholithiasis Noted to have elevated INR as well. Received dose of vitamin K on 08/30 #Seizure disorder: Continue divalproex, lamotrigine and zonisamide #Hypokalemia: Replace adequately #Chronic disability: He is wheelchair-bound and is dependent on daily activities Consult physical therapy #MRDD: Patient lives in a senior care and needs help with his daily activities In the past consent was provided by advocacy and protective services. Call [phone] for every consent. Medication and Non-Pharmacologic VTE Prophylaxis/Anticoagulants 08/28/202014 pneumatic compression stockings ([place], [place]) 08/28/201814 activity - mobilize patient ([place], [place]) VTE Prophylaxis: VTE prophylaxis appropriate Disposition: To be determined Plan of care discussed with RN Plan communicated to: Spoke with Le at [phone] ,she is consulting group analyst. Medical condition was updated. She reported that at the time of discharge if he needs SNF then guardian needs to be contacted regarding where he will need to go. SIGNATURE: Anuja Patel MD PATIENT NAME: Jesus Shaver DATE: September 01, 2020 TIME: 11:10 AM [facility] 09-01-2020 Note HNO ID: [id number] Author: Sulema Beard APRN.MAINTENANCE MECHANIC SUPERVISOR Service: Anesthesiology Author Type: Nurse Ssds Mk 2 Advanced Operator Type: Anesthesia Procedure Notes Filed: 09/01/2020 2:53 PM Note Text: ANESTHESIOLOGY PROCEDURE NOTE Airway General Information Procedure Start Time/Medication Administration: 09/01/2020 2:07 PM Patient location during procedure: OR Timeout Performed Pre-procedure: timeout performed Consent Obtained: Yes Patient identity confirmed: arm band and patient Staffing MAINTENANCE MECHANIC SUPERVISOR: Sulema Beard APRN.MAINTENANCE MECHANIC SUPERVISOR Indications and Patient Condition Preoxygenated: yes Patient position: sniffing Manual In-Line Stabilization: No Difficult Mask: No Indications for airway management: anesthesia anesthesia circuit Method: asleep Cricoid Pressure: No Airway Accessory: oral airway Final Airway Details Final airway type: endotracheal airway Final Endotracheal Airway: ETT Cuffed: yes Successful intubation technique: video laryngoscopy Devices used: Claudia Endotracheal tube insertion site: oral Blade size: #4 ETT size (mm): 7.5 Measured from: lips Measurement (cm): 23 Placement verified by: chest auscultation and capnometry Cormack-Lehane Classification: grade I - full view of glottis Number of attempts at approach: 1 Failed airway: no Unrecognized esophageal intubation: no Airway not difficult Comments Claudia #4 with grade 1 view with direct laryngoscopy view SIGNATURE: Sulema Beard APRN.MAINTENANCE MECHANIC SUPERVISOR PATIENT NAME: Jesus Shaver DATE: September 01, 2020 TIME: 2:51 PM CSN: [id number] [facility] 09-01-2020 Note HNO ID: [id number] Author: Anuja Patel MD Service: Hospital Medicine Author Type: Physician Type: Progress Notes Filed: 09/01/2020 11:12 AM Note Text: DEPARTMENT OF HOSPITAL MEDICINE PROGRESS NOTE SERVICE DATE: 09/01/2020 SERVICE TIME: 11:10 AM Hospital Medicine/Primary Attending: Anuja Patel MD NIGHT AND WEEKEND COVERAGE: [facility] COVERAGE: Patient admitted to [facility] From 0700 - 1630, please contact pager [phone] for patient issues. From 1630 - 0700, please contact the Night Hospitalist on pager [phone] for patient issues. Subjective INTERVAL HPI: Was comfortably sleeping today.BP low today,1lit bolus given. Current Facility-Administered Medications Medication Dose Route Frequency - divalproex DR 1,500 mg tab(s) (DEPAKOTE) 1,500 mg ORAL AT BEDTIME - zonisamide 100 mg cap(s) (ZONEGRAN) 100 mg ORAL BID - tamsulosin 0.4 mg cap(s) (FLOMAX) 0.4 mg ORAL AT BEDTIME - senna 8.6 mg tab(s) (SENOKOT) 8.6 mg ORAL BID - polyethylene glycol 3350 17 g packet (MIRALAX, GLYCOLAX) 17 g ORAL DAILY - lamoTRIgine 50 mg tab(s) (LaMICtal) 50 mg ORAL BID - piperacillin-tazobactam iv piggyback 3.375 g in dextrose (iso-osmotic) 50 mL (ZOSYN) 3.375 g INTRAVENOUS q 6 H - dextrose 5% in NaCl 0.45% with 20 mEq/L KCl iv infusion 80 mL/hr INTRAVENOUS CONTINUOUS Objective PHYSICAL EXAM: BP 96/60 Pulse 102 Temp (Src) 97.5 (Oral) Resp 16 Ht [ISAAC[ (0.00m) SpO2 96% O2 Therapy: Room Air Physical Exam Performed GENERAL: Alert, No Distress, Jaundiced SKIN: Yellow jaundice looking skin OROPHARYNX: Normal lips and mucosa LUNGS: Lungs clear to auscultation, Good diaphragmatic excursion CARDIAC: Normal S1 and S2; no rubs, murmurs, or gallops ABDOMEN: Abdomen soft, non-tender, BS normal, No masses or organomegaly EXTREMITIES: Extremities normal, no deformities, edema, clubbing or skin discoloration. Good capillary refill., No ulcers NEURO: Exam deferred Lines, Drains, and Airways Line Peripheral 08/30/20 0847 Right Forearm 22 Gauge 2 days Reviewed lines and needs to be continued: REASONS: Telemetry and Electrolyte replacement DATA: Diagnostic tests reviewed for today's visit: Most recent labs Most recent imaging Assessment/Plan Problem List Jaundice Seizure disorder (HCC) Ataxia Development delay Obstructive jaundice HOSPITAL COURSE: Jesus Shaver is a 65 year old man with history of MRDD who lives in a senior care was transferred from [facility] for obstructive jaundice. #Obstructive jaundice: Presented with yellowish discoloration of skin and abdominal discomfort. Labs suggestive of obstructive pattern.LFTs continue to trend up with T bili of 17.[address] abdomen/pelvis done on 08/29 showed mild intrahepatic biliary dilatation with evidence of choledocholithiasis. Appreciate gastroenterology recommendations. Continue IV antibiotics ERCP on 08/30 and found to have stenotic major papillary. Pancreatic stent placed in ventral pancreatic duct with biliary sphincterotomy. Plan for repeat ERCP on 09/01 N.p.o. after midnight for procedure #History of cirrhosis: As per records from [facility] he had liver biopsy done in the past which showed early signs of cirrhosis. His LFTs are elevated currently due to choledocholithiasis Noted to have elevated INR as well. Received dose of vitamin K on 08/30 #Seizure disorder: Continue divalproex, lamotrigine and zonisamide #Hypokalemia: Replace adequately #Chronic disability: He is wheelchair-bound and is dependent on daily activities Consult physical therapy #MRDD: Patient lives in a senior care and needs help with his daily activities In the past consent was provided by advocacy and protective services. Call [phone] for every consent. Medication and Non-Pharmacologic VTE Prophylaxis/Anticoagulants 08/28/202014 pneumatic compression stockings ([place], [place]) 08/28/201814 activity - mobilize patient ([place]) VTE Prophylaxis: VTE prophylaxis appropriate Disposition: To be determined Plan of care discussed with RN Plan communicated to: SIGNATURE: Anuja Patel MD PATIENT NAME: Jesus Shaver DATE: September 01, 2020 TIME: 11:10 AM [facility] 08-31-2020 Note HNO ID: [id number] Author: Anuja Patel MD Service: Hospital Medicine Author Type: Physician Type: Progress Notes Filed: 08/31/2020 12:44 PM Note Text: DEPARTMENT OF HOSPITAL MEDICINE PROGRESS NOTE SERVICE DATE: 08/31/2020 SERVICE TIME: 12:42 PM Hospital Medicine/Primary Attending: Anuja Patel MD NIGHT AND WEEKEND COVERAGE: [facility] COVERAGE: Patient admitted to [facility] From 0700 - 1630, please contact pager [phone] for patient issues. From 1630 - 0700, please contact the Night Hospitalist on pager [phone] for patient issues. Subjective INTERVAL HPI: Was comfortably sleeping today. Current Facility-Administered Medications Medication Dose Route Frequency - divalproex DR 1,500 mg tab(s) (DEPAKOTE) 1,500 mg ORAL AT BEDTIME - zonisamide 100 mg cap(s) (ZONEGRAN) 100 mg ORAL BID - tamsulosin 0.4 mg cap(s) (FLOMAX) 0.4 mg ORAL AT BEDTIME - senna 8.6 mg tab(s) (SENOKOT) 8.6 mg ORAL BID - polyethylene glycol 3350 17 g packet (MIRALAX, GLYCOLAX) 17 g ORAL DAILY - lamoTRIgine 50 mg tab(s) (LaMICtal) 50 mg ORAL BID - piperacillin-tazobactam iv piggyback 3.375 g in dextrose (iso-osmotic) 50 mL (ZOSYN) 3.375 g INTRAVENOUS q 6 H - dextrose 5% in NaCl 0.45% with 20 mEq/L KCl iv infusion 80 mL/hr INTRAVENOUS CONTINUOUS Objective PHYSICAL EXAM: BP 99/50 Pulse 50 Temp (Src) 97.8 (Axillary) Resp 16 Ht [ISAAC[ (0.00m) SpO2 95% O2 Therapy: Room Air Physical Exam Performed GENERAL: Alert, No Distress, Jaundiced SKIN: Yellow jaundice looking skin OROPHARYNX: Normal lips and mucosa LUNGS: Lungs clear to auscultation, Good diaphragmatic excursion CARDIAC: Normal S1 and S2; no rubs, murmurs, or gallops ABDOMEN: Abdomen soft, non-tender, BS normal, No masses or organomegaly EXTREMITIES: Extremities normal, no deformities, edema, clubbing or skin discoloration. Good capillary refill., No ulcers NEURO: Exam deferred Lines, Drains, and Airways Line Peripheral 08/30/20 0847 Right Forearm 22 Gauge 1 day Drain External Collection Device 08/29/20 0519 2 days Reviewed lines and needs to be continued: REASONS: Telemetry and Electrolyte replacement DATA: Diagnostic tests reviewed for today's visit: Most recent labs Most recent imaging Assessment/Plan Problem List Jaundice Seizure disorder (HCC) Ataxia Development delay Obstructive jaundice HOSPITAL COURSE: Jesus Shaver is a 65 year old man with history of MRDD who lives in a senior care was transferred from [facility] for obstructive jaundice. #Obstructive jaundice: Presented with yellowish discoloration of skin and abdominal discomfort. Labs suggestive of obstructive pattern.slight elevation in liver enzymes today CT abdomen/pelvis done on 08/29 showed mild intrahepatic biliary dilatation with evidence of choledocholithiasis. Appreciate gastroenterology recommendations. Continue IV antibiotics ERCP on 08/30 and found to have stenotic major papillary. Pancreatic stent placed in ventral pancreatic duct with biliary sphincterotomy. Plan for repeat ERCP on 09/01 N.p.o. after midnight for procedure #History of cirrhosis: As per records from [facility] he had liver biopsy done in the past which showed early signs of cirrhosis. His LFTs are elevated currently due to choledocholithiasis Noted to have elevated INR as well. Received dose of vitamin K on 08/30 #Seizure disorder: Continue divalproex, lamotrigine and zonisamide #Hypokalemia: Noted potassium of 3.1 today. Replace adequately #Chronic disability: He is wheelchair-bound and is dependent on daily activities Consult physical therapy #MRDD: Patient lives in a senior care and needs help with his daily activities In the past consent was provided by advocacy and protective services. Call [phone] for every consent. Medication and Non-Pharmacologic VTE Prophylaxis/Anticoagulants 08/28/202014 pneumatic compression stockings ([place], [place]) 08/28/201814 activity - mobilize patient ([place]) VTE Prophylaxis: VTE prophylaxis appropriate Disposition: To be determined Plan of care discussed with RN Plan communicated to: SIGNATURE: Anuja Patel MD PATIENT NAME: Jesus Shaver DATE: August 31, 2020 TIME: 12:42 PM [facility] 08-30-2020 Note HNO ID: [id number] Author: EZE Canales Service: Care Management Author Type: Supervisor Public Health Nursing Type: Care Mgt Initial Assessment Filed: 08/30/2020 4:19 PM Note Text: CARE MANAGEMENT: ASSESSMENT AND DISCHARGE PLAN SERVICE DATE: August 30, 2020 SERVICE TIME: 3:54 PM PRIMARY CARE PHYSICIAN: Jesus Mills MD ADMISSION STATUS: Inpatient Needs Prior to Discharge: Home Care Order MEDICAL: [place] Patient/Patient Care Associate Stated Goals: To have reduction in pain;To have reduction in symptoms;To return home to life as it was Health Insurance: Medicaid Health Issues Impacting Discharge Plan: Uncontrolled Uncontrolled: jaundice Last Discharge Date: N/A Is this Within the Past 30 days? Last discharge within 30 days: No Advance Directive: Current Advance Directive: Other Document: See Comment In Chart: No Whitewasher Attempted to Assist with AD Completion: No Health LiteracyHow often do you need to have someone help you when you read instructions, pamphlets, or other written material from your doctor or pharmacy? : 4 - Often How confident are you filling out medical forms by yourself?: 3 - Somewhat If Patient scores > 3 on either question, the following interventions were put into place:: Use of plain language and active listening with Patient and family;Teach back methods employed to ensure comprehension Baseline Mental Status Prior to this Illness what was the patient's Baseline Mental Status?: Unable to complete assessment Prior to this illness, has anyone described the patient having any of the following behaviors?: Unable to complete assessment Functional Status: Needs Assistance Does Patient Currently Receive Any Community Services or Home Care?: Jail Equipment Prior to Admission: Walker;Wheelchair SOCIAL: Living Arrangements: Fci Fci Information: [facility] Financial Resources: Disabled Primary Contact: Extended Emergency Contact Information Primary Emergency Contact: Mandy PARDO Relation: Guardian Secondary Emergency Contact: Le Box Toe Flanger [employer] Mobile Relation: Supervisor Paint Department Supportive Patient Contact:: Yes Contact Resources: Guardian Caregiver AssessmentCaregiver is ready, willing and able to meet the patient's needs as recommended by the inter-professional team:: Yes Does the patient have an acute stroke diagnosis, or has the patient had a stroke during this admission?: No Patient's transition needs and plan for meeting these needs: return to Patient's perception of need for this admission: jaundice Medication Adherance I am convinced of the importance of my prescription medication: 0 - Agree Completely I worry that my prescription medication will do more harm than good to me : 0 - Disagree Completely I feel financially burdened by my [id number] expenses for my prescription medication:: 0 - Disagree Completely Risk Score: 0 Patient is categorized as: Low risk < 2 Are you interested in bedside delivery of your medications? No Is Patient Psychosocially Complex?: Yes, refer to Social Work ASSESSMENT AND PLAN: Medical Needs: Medical Needs: Two or more chronic diseases Psychosocial Needs: Psychosocial Needs: Other: See Comment Mental Health Information: MRDD FREEDOM OF CHOICE EXPLAINED: [place] of Choice Given: No Reason Not Given: No placements necessary POTENTIAL TRANSITION PLANS Home OT/PT Pt transferred from a hospital in [place] for jaundice. Off the unit at [facility]. Pt with MRDD and unable to consent for himself. ANI contacted [facility] - [phone]. ANI was directed to contact the optical store manager- Le at [phone] who reports that the pt has 24/7 care while at and has been using a rollator with standby assist. Reviewed the therapy eval and that the pt is requiring more assist. reports that they can manage if they pt is requiring a 2 person assist and will arrange [facility] for the pt. Requesting to have paper scripts and F2F sent in packet with pt. reports that they will provide transport upon Dc and will need a few hours notice to arrange for transport. reports that the pt has a guardian through [facility]. Confirmed on the [employer] website. pts guardian is [facility]- Mandy [phone]. placed call to [facility] to alert of admission- Left VM. Needs pending. Case management following. SIGNATURE: EZE Canales PATIENT NAME: Jesus Shaver DATE: August 30, 2020 TIME: 3:54 PM PAGER/CONTACT #: [phone] [facility] 08-30-2020 Note HNO ID: [id number] Author: LARRY Alvarenga Service: Anesthesiology Author Type: Hazmat Truck Driver Type: Anesthesia Procedure Notes Filed: 08/30/2020 2:41 PM Note Text: ANESTHESIOLOGY PROCEDURE NOTE Airway General Information Procedure Start Time/Medication Administration: 08/30/2020 2:23 PM Patient location during procedure: OR Timeout Performed Pre-procedure: timeout performed Consent Obtained: Yes Patient identity confirmed: arm band Staffing Performed by: CAA student Indications and Patient Condition Preoxygenated: yes Difficult Mask: No Indications for airway management: anesthesia anesthesia circuit Method: asleep Airway Accessory: oral airway Final Airway Details Final airway type: endotracheal airway Final Endotracheal Airway: ETT Cuffed: yes Successful intubation technique: video laryngoscopy Devices used: Glidescope Endotracheal tube insertion site: oral Blade size: #4 ETT size (mm): 8.0 Measured from: lips Measurement (cm): 24 Placement verified by: chest auscultation and capnometry Cormack-Lehane Classification: grade IIa - partial view of glottis Number of attempts at approach: 1 Airway not difficult SIGNATURE: LARRY Alvarenga PATIENT NAME: Jesus Shaver DATE: August 30, 2020 TIME: 2:40 PM CSN: [id number] [facility] 08-30-2020 Note HNO ID: [id number] Author: Anuja Patel MD Service: Hospital Medicine Author Type: Physician Type: Progress Notes Filed: 08/30/2020 1:21 PM Note Text: DEPARTMENT OF HOSPITAL MEDICINE PROGRESS NOTE SERVICE DATE: 08/30/2020 SERVICE TIME: 12:41 PM Hospital Medicine/Primary Attending: Anuja Patel MD NIGHT AND WEEKEND COVERAGE: [facility] COVERAGE: Patient admitted to [facility] From 00 - 1629, please contact pager [phone] for patient issues. From 163 - 699, please contact the Night Hospitalist on pager [phone] for patient issues. Subjective INTERVAL HPI: Patient was sitting in the chair during my encounter and wanted to be helped to bed. Otherwise he was avoiding eye contact. Denied having any discomfort or pain. Current Facility-Administered Medications Medication Dose Route Frequency - divalproex DR 1,500 mg tab(s) (DEPAKOTE) 1,500 mg ORAL AT BEDTIME - zonisamide 100 mg cap(s) (ZONEGRAN) 100 mg ORAL BID - tamsulosin 0.4 mg cap(s) (FLOMAX) 0.4 mg ORAL AT BEDTIME - senna 8.6 mg tab(s) (SENOKOT) 8.6 mg ORAL BID - polyethylene glycol 3350 17 g packet (MIRALAX, GLYCOLAX) 17 g ORAL DAILY - lamoTRIgine 50 mg tab(s) (LaMICtal) 50 mg ORAL BID - piperacillin-tazobactam iv piggyback 3.375 g in dextrose (iso-osmotic) 50 mL (ZOSYN) 3.375 g INTRAVENOUS q 6 H - phytonadione (vitamin K1) 10 mg injection (VITAMIN K) 10 mg SUBCUTANEOUS DAILY - NaCl 0.9% iv infusion 75 mL/hr INTRAVENOUS CONTINUOUS - potassium chloride iv piggyback 20 mEq/100 mL 20 mEq INTRAVENOUS q 1 H Objective PHYSICAL EXAM: BP 108/58 Pulse 73 Temp (Src) 97.9 (Axillary) Resp 18 Ht [ISAAC[ (0.00m) SpO2 94% O2 Therapy: Room Air Physical Exam Performed GENERAL: Alert, No Distress, Jaundiced SKIN: Yellow jaundice looking skin OROPHARYNX: Normal lips and mucosa LUNGS: Lungs clear to auscultation, Good diaphragmatic excursion CARDIAC: Normal S1 and S2; no rubs, murmurs, or gallops ABDOMEN: Abdomen soft, non-tender, BS normal, No masses or organomegaly EXTREMITIES: Extremities normal, no deformities, edema, clubbing or skin discoloration. Good capillary refill., No ulcers NEURO: Exam deferred Lines, Drains, and Airways Line Peripheral 08/30/20 0847 Right Forearm 22 Gauge <1 day Drain External Collection Device 08/29/20 0519 1 day Reviewed lines and needs to be continued: REASONS: Telemetry and Electrolyte replacement DATA: Diagnostic tests reviewed for today's visit: Most recent labs Most recent imaging Assessment/Plan Problem List Jaundice Seizure disorder (HCC) Ataxia Development delay Obstructive jaundice HOSPITAL COURSE: Jesus Shaver is a 65 year old man with history of MRDD who lives in a senior care was transferred from [facility] for obstructive jaundice. #Obstructive jaundice: Presented with yellowish discoloration of skin and abdominal discomfort. Labs suggestive of obstructive pattern with elevated T bili to 15, alk phos 371, ALT [address] abdomen/pelvis done on 08/29 showed mild intrahepatic biliary dilatation with evidence of choledocholithiasis. Appreciate gastroenterology recommendations. Continue IV antibiotics Scheduled for ERCP on 08/30. Pending consent at this time. #History of cirrhosis: As per records from [facility] he had liver biopsy done in the past which showed early signs of cirrhosis. His LFTs are elevated currently due to choledocholithiasis Noted to have elevated INR as well. Received dose of vitamin K today as he is scheduled for procedure #Seizure disorder: Continue divalproex, lamotrigine and zonisamide #Hypokalemia: Noted potassium of 3.1 today. Replace adequately #Chronic disability: He is wheelchair-bound and is dependent on daily activities Consult physical therapy #MRDD: Patient lives in a senior care and needs help with his daily activities In the past consent was provided by advocacy and protective services. Called [phone] and left a voice message. Sara zavala called me back and was able to consent for the procedure when explained the need. Medication and Non-Pharmacologic VTE Prophylaxis/Anticoagulants 08/28/202014 pneumatic compression stockings ([place], [place]) 08/28/20 863 activity - mobilize patient ([place]) VTE Prophylaxis: VTE prophylaxis appropriate Disposition: To be determined Plan of care discussed with RN Plan communicated to: SIGNATURE: Anuja Patel MD PATIENT NAME: Jesus Shaver DATE: August 30, 2020 TIME: 12:41 PM [facility] 08-30-2020 Note HNO ID: [id number] Author: Jayne Mejía RN Service: Care Management Author Type: Registered Nurse Type: Care Mgt Progress Note Filed: 08/30/2020 12:16 AM Note Text: CARE MANAGEMENT PROGRESS NOTE SERVICE DATE: 08/30/2020 SERVICE TIME: 12:16 AM LOS: 2 days Patient screened and discharge needs evaluated. Whitewasher to follow for discharge planning. SIGNATURE: Jayne Mejía RN PATIENT NAME: Jesus Shaver DATE: August 30, 2020 TIME: 12:15 AM PAGER/CONTACT #: [phone] [facility] 08-29-2020 Note HNO ID: [id number] Author: Magdy Delacruz MD Service: Hospital Medicine Author Type: Physician Type: Progress Notes Filed: 08/29/2020 2:56 PM Note Text: DEPARTMENT OF HOSPITAL MEDICINE PROGRESS NOTE SERVICE DATE: 08/29/2020 SERVICE TIME: 2:47 PM Hospital Medicine/Primary Attending: Magdy Delacruz MD NIGHT AND WEEKEND COVERAGE: Patient admitted to [facility]. From 7a to 4.30 p, please page [phone] for patient issues. from 4.30 p to 7am, please page the night hosptialist on pager [phone] for patient issues Subjective INTERVAL HPI: Patient continues to states that he is not okay but denies any abdominal pain or nausea. On exam patient appears comfortable laying in the bed Current Facility-Administered Medications Medication Dose Route Frequency - divalproex DR 1,500 mg tab(s) (DEPAKOTE) 1,500 mg ORAL AT BEDTIME - zonisamide 100 mg cap(s) (ZONEGRAN) 100 mg ORAL BID - tamsulosin 0.4 mg cap(s) (FLOMAX) 0.4 mg ORAL AT BEDTIME - senna 8.6 mg tab(s) (SENOKOT) 8.6 mg ORAL BID - polyethylene glycol 3350 17 g packet (MIRALAX, GLYCOLAX) 17 g ORAL DAILY - NaCl 0.45% iv infusion 75 mL/hr INTRAVENOUS CONTINUOUS - lamoTRIgine 50 mg tab(s) (LaMICtal) 50 mg ORAL BID - piperacillin-tazobactam iv piggyback 3.375 g in dextrose (iso-osmotic) 50 mL (ZOSYN) 3.375 g INTRAVENOUS q 6 H - iv contrast (radiology procedure) INTRAVENOUS DIRECTED PRN - phytonadione (vitamin K1) 10 mg injection (VITAMIN K) 10 mg SUBCUTANEOUS DAILY Objective PHYSICAL EXAM: BP 88/49 Pulse 57 Temp (Src) 97.5 (Oral) Resp 16 SpO2 94% O2 Therapy: Room Air Physical exam is limited because of patient being uncooperative/not following commands Physical Exam Performed GENERAL: alert, no distress, noncooperative SKIN: Jaundiced skin Eyes: Scleral icterus noted OROPHARYNX: Lips and mucosa are normal NECK: Supple, n LUNGS: Lungs clear to auscultation. Good diaphragmatic excursion CARDIAC: Normal S1 and S2; no rubs, murmurs, or gallops ABDOMEN: Abdomen soft, non-tender, BS normal, EXTREMETIES: Extremities normal, NEURO: Alert, non cooperative Lines, Drains, and Airways Drain External Collection Device 08/29/20 0519 <1 day Reviewed lines and needs to be continued: REASONS: Intravenous antibiotics DATA: Diagnostic tests reviewed for today's visit: Most recent labs Most recent imaging Assessment/Plan Problem List Jaundice Seizure disorder (HCC) Ataxia Development delay Obstructive jaundice Principal Problem: Obstructive jaundice Assessment AND Plan: elevated total bili of 8.20, Direct Bili of 6.74, AST 161 and ALT of 155 and alk phosp of 218. (Note: per records, had hx of liver biopsy in past that showed early signs of cirrhosis (per records from [place]). ? Today T bili 14.8, alk phos 344, ALT 95, AST 133 Transferred to [facility] for GI evaluation CT abdomen pelvis showed mild intrahepatic biliary dilatation. Evidence of choledocholithiasis. Mild thickening of extrahepatic biliary ductal wall Currently afebrile and hemodynamically stable with no leukocytosis Plan Possible ERCP within 24-hour as per Dr. Torres ( discussed today) Continue empiric Zosyn N.p.o. after midnight Received vitamin K per GI Active Problems: Seizure disorder (HCC) Development delay Assessment AND Plan: Continue with divalproex, lamotrigine, zonisamide Medication and Non-Pharmacologic VTE Prophylaxis/Anticoagulants 08/28/202014 pneumatic compression stockings ([place]) 08/28/201814 activity - mobilize patient ([place]) VTE Prophylaxis: VTE prophylaxis appropriate Disposition: To be determined Plan of care discussed with RN and Consultants: ( GI) Plan communicated to: Tried calling Venecia Savage Supervisor [employer] [phone] ? No response received SIGNATURE: Magdy Delacruz MD PATIENT NAME: Jesus Shaver DATE: August 29, 2020 TIME: 2:47 PM [facility] 08-29-2020 Note HNO ID: [id number] Author: Nikky Freeman Service: Radiology Author Type: Fruit Harvester Type: Progress Notes Filed: 08/29/2020 1:54 PM Note Text: Radiology Service Progress Note DATE OF SERVICE: August 29, 2020 TIME: 1:54 PM PATIENT IDENTITY VERIFICATION COMPLETED USING TWO (2) STANDARD IDENTIFIERS: Name and Date of confirmed by patient verbally. FALL SCREENING: Has the patient had 2 falls in the last year or 1 fall with injury or currently using an Ambulatory Assistive Device (Walker, Cane, Wheelchair, Crutches, etc.)? Inpatient: Screened on floor PATIENT GENDER DATA: Male PATIENT RELEVANT IMPLANT DATA REVIEWED: Yes ALLERGIES: Reviewed and unchanged CONTRAST ALLERGY: NO. EXAM: CT -CONTRAST INDUCED NEPHROPATHY RISK FACTORS: Patient age > 60 years CREATININE: Creatinine Date Value Ref Range Status 08/29/2020 0.82 0.73 - 1.22 mg/dL Final Comment: Result may be falsely decreased due to icteric interference. 08/28/2020 0.88 0.73 - 1.22 mg/dL Final Comment: Result may be falsely decreased due to icteric interference. 07/03/2020 1.01 0.73 - 1.22 mg/dL Final eGFR-All Other Races Date Value Ref Range Status 08/29/2020 >60 . Final Comment: eGFR (Estimated GFR) Units of measure: mL/min/1.73 meters squared eGFR is derived from the reexpressed MDRD Study equation using the following parameters: serum creatinine, age, gender and race. The creatinine assay has been calibrated to be traceable to IDMS. An eGFR <60 mL/min/1.73m2 for >3 months is consistent with chronic kidney disease. Refer to KDOQI guidelines for clinical interpretation. In patients with unstable renal function, e.g. those with acute kidney injury, the eGFR may not accurately reflect actual GFR. eGFR- Date Value Ref Range Status 08/29/2020 >60 Final P.O.C.T. RESULTS: POC done: Yes, See Lab Tab August 29, 2020 TREATMENT: N/A PERIPHERAL IV DATA: Inpatient - refer to [facility] documentation RADIOLOGY DEPARTMENT: CT; Exam(s) Completed: Abdomen/Pelvis SIGNATURE: Nikky Freeman PATIENT NAME: Jesus Shaver DATE: August 29, 2020 TIME: 1:54 PM [facility] 08-28-2020 History of Present illness Narrative mart[facility] transport here to take patient to [facility] apaerwork given to transport. Report called to [facility], instructed to leave the piv in. Report called to kulwinder PAINTER. Images from the original note were not included. Hospitalist Progress Note 08/27/2020 4:59 PM [phone]: Please page me for patient care issues. [phone]: Please page [facility] Hospitalist for any issues. Subjective: Admit Date: 08/25/2020 PCP: No primary care provider on file. Room#: 6131/447549 Interval History: Patient is a poor historian. Denies any chest pain or sob. No abdominal pain currently. History liimited due to MRDD Diet NPO, After Midnight No data found. Medications: sodium chloride piperacillin-tazobactam 3,375 mg Intravenous Q8H lamoTRIgine 100 mg Oral Daily zonisamide 100 mg Oral Daily divalproex 1,500 mg Oral Daily therapeutic multivitamin-minerals 1 tablet Oral Daily pyridoxine 100 mg Oral Daily senna 1 tablet Oral BID tamsulosin 0.4 mg Oral Daily sodium chloride flush 5-40 mL Intravenous 2 times per day calcium-cholecalciferol 1 tablet Oral Daily LABS: CBC: Recent Labs 08/26/20 0303 WBC 6.8 RBC 3.73* HGB 12.7* HCT 36.5* MCV 98.0 RDW 14.8* PLT 70* BMP: Recent Labs 08/26/203 08/27/20 0255 NA 139 141 K 3.7 4.3 CL 105 109* CO2 26 25 BUN 23* 22* CREATININE 0.83 0.92 GLUCOSE 100 82 CALCIUM 8.9 9.4 ANIONGAP 8 7 LIVER PROFILE: Recent Labs 08/26/2030208/27/20 0255 AST 169* 159* ALT 134* 125* BILITOT 8.6* 10.5* ALKPHOS 189* 223* LABALBU 3.2* 3.0* PROT 6.5 6.0* PT/INR: Recent Labs 08/26/20302 PROTIME 12.1* INR 1.1 CARDIAC ENZYMES: No results for input(s): TROPONINI in the last 72 hours. Procalcitonin: No results found for: PROCAL Objective: Vitals: BP (!) 149/76 Pulse 55 Temp 97.4 F (36.3 C) (Temporal) Resp 18 SpO2 96% Pulse Ox: SpO2 Av.2 % Min: 96 % Max: 98 % Supplemental O2: O2 Flow Rate (L/min): 2 L/min General appearance: No apparent distress, appears stated age and cooperative with exam. HEENT: Eyes: + scleral icterus Oral: Tongue is semi-moist Cardiovascular: S1/S2 heard, RRR Respiratory: Clear to auscultation bilaterally Abdomen: Soft, non-tender, non-distended bowel sounds positive Musculoskeletal: No obvious deformities seen Skin: No visible rashes or lesions. + for jaundice Assessment # Acute epigastric pain with new onset jaundice/scleral icterus with elevated total bili of 8.20, Direct Bili of 6.74, AST 161 and ALT of 155 and alk phosp of 218. (Note: per records, had hx of liver biopsy in past that showed early signs of cirrhosis (per records from [place]). GI consulted and has seen. Recommends MRCP with sedation and states that should this be positive will need transfer to tertiary center for ERCP # Liver cirrhosis (as mentioned above) # Bradycardia with HR in the 40s-50s at [place]? Here has been 50s-70s. Monitor on tele # Thrombocytopenia - suspect due to liver cirrhosis (Note: per records, had hx of liver biopsy in past that showed early signs of cirrhosis per records from [place]). # Hypokalemia - replace as needed # Hx of MRDD - has court appointed guardian # Hx of seizures # Hx of cerebellar atrophy and gait disturbance # Chronic arthritis Plan spoke with GI INSPECTOR PACKER GLASS CONTAINER this am Albino. They recommend transfer to [facility] for ERCP. I called and [facility] is backed up with 90 patient's waiting for beds. They recommended I call [facility]. I called and they do NOT have GI doc patient relations specialist that does ERCP. I called [facility] back. They ended up setting patient up for [facility] who do have bed available and does have GI doctor that does ERCP on. Dr. Hernandez accepted and will discharge there once bed is available. Advance Directive: Full Code Discharge planning: TBD TODD HYATT MD Division of Hospitalist Medicine Inpatient Medical Services PAGER: [phone] Nutrition rescreen completed. Patient referred to the Dietitian. Department of Internal Medicine Gastroenterology Attending Progress Note SUBJECTIVE: GI following for jaundice. Planned for MRI but had a battery box with wires tracing up toward his neck. Primary also consulted cardiology for bradycardia Today he endorses continued abdominal pain. He denies nausea and vomiting. He denies passing gas Medications Current Facility-Administered Medications: docusate sodium (COLACE) capsule 100 mg, 100 mg, Oral, Daily PRN lamoTRIgine (LAMICTAL) tablet 100 mg, 100 mg, Oral, Daily zonisamide (ZONEGRAN) capsule 100 mg, 100 mg, Oral, Daily divalproex (DEPAKOTE ER) extended release tablet 1,500 mg, 1,500 mg, Oral, Daily therapeutic multivitamin-minerals 1 tablet, 1 tablet, Oral, Daily vitamin B-6 (PYRIDOXINE) tablet 100 mg, 100 mg, Oral, Daily senna (SENOKOT) tablet 8.6 mg, 1 tablet, Oral, BID tamsulosin (FLOMAX) capsule 0.4 mg, 0.4 mg, Oral, Daily sodium chloride flush 0.9 % injection 5-40 mL, 5-40 mL, Intravenous, 2 times per day sodium chloride flush 0.9 % injection 5-40 mL, 5-40 mL, Intravenous, PRN 0.9 % sodium chloride infusion, 25 mL, Intravenous, PRN promethazine (PHENERGAN) tablet 12.5 mg, 12.5 mg, Oral, Q6H PRN OR ondansetron (ZOFRAN) injection 4 mg, 4 mg, Intravenous, Q6H PRN polyethylene glycol (GLYCOLAX) packet 17 g, 17 g, Oral, Daily PRN acetaminophen (TYLENOL) tablet 650 mg, 650 mg, Oral, Q6H PRN OR acetaminophen (TYLENOL) suppository 650 mg, 650 mg, Rectal, Q6H PRN calcium-cholecalciferol 500-200 MG-UNIT per tablet 1 tablet, 1 tablet, Oral, Daily OBJECTIVE VITALS: BP 119/63 Pulse 50 Temp 98.6 F (37 C) (Temporal) Resp 18 SpO2 98% TEMPERATURE: Current - Temp: 98.6 F (37 C); Max - Temp Av.9 F (36.6 C) Min: 97.2 F (36.2 C) Max: 98.6 F (37 C) RESPIRATIONS RANGE: Resp Av Min: 18 Max: 18 PULSE RANGE: Pulse Av.6 Min: 50 Max: 76 BLOOD PRESSURE RANGE: Systolic (24hrs), Av , Min:100 , Max:140 ; Diastolic (24hrs), Av, Min:54, Max:87 PULSE OXIMETRY RANGE: SpO2 Av.7 % Min: 89 % Max: 99 % 24HR INTAKE/OUTPUT: Intake/Output Summary (Last 24 hours) at 08/27/2020 9703 Last data filed at 08/27/2020 0519 Gross per 24 hour Intake 750 ml Output Net 750 ml GENERAL: Pleasant and appears uncomfortable, jaundiced, clinically worse from 08/26 HEENT: NCAT, PERRLA, EOMI, Scleral icteric. Oropharhynx clear with no erythema or exudate. Neck supple, no cervical LAD or thyromegaly. CV: RRR, NL S1/S2, no murmurs. Distal pulses palpable and equal b/l. LUNGS: CTA b/l. Normal palpation. No W/R/R. ABD: hypoactive BS, soft, mild to moderate tenderness to palpation in epigastric and RUQ and non-distended. No hepatosplenomegaly. No mass felt. No rebound or guarding. EXT: No C/C/E. No muscle atrophy. Skin: No skin lesion or breakdown, jaundiced Lymph: No cervical or supraclavicular LAD. Musculoskeletal: Strength 5/5 in all exts. Tremulous No joint tenderness or effusions in LEs. Neurologic: A&O x 2, developmentally delayed, CN II-XII grossly intact. Normal cerebellar fxn. Unable to assess asterixis. Non-focal. Data Recent blood work, radiologic study were reviewed. CBC: Recent Labs 08/26/20 0303 WBC 6.8 RBC 3.73* HGB 12.7* HCT 36.5* MCV 98.0 MCH 34.1* MCHC 34.8 RDW 14.8* PLT 70* MPV 10.2 CMP: Recent Labs 08/26/20 0303 08/27/20 0255 NA 139 141 K 3.7 4.3 CL 105 109* CO2 26 25 BUN 23* 22* CREATININE 0.83 0.92 GLUCOSE 100 82 CALCIUM 8.9 9.4 PROT 6.5 6.0* LABALBU 3.2* 3.0* BILITOT 8.6* 10.5* ALKPHOS 189* 223* AST 169* 159* ALT 134* 125* PT/INR: Recent Labs 08/26/20 0303 INR 1.1 Radiologic Review KUB 08/26/2020 Impression: Non specific radiographs of the abdomen. XR Chest 08/26/2020 Findings: A single AP portable view of the chest was obtained at 1355 hours. No prior studies for comparison. A battery pack is present superimposed over the aortic knob with the leads extending toward the left neck. Correlate with clinical history as to the nature of this device. The trachea is midline. The heart is not enlarged. No focal areas of consolidation or volume loss are seen. There are no pleural effusions. The pulmonary vasculature does not appear congested. The visualized bony structures are intact. XR Eye orbital 08/26/2020 Report Clinical Information: Foreign body . 2 views of the orbits reveal no evidence of orbital emphysema. The paranasal sinuses are well aerated without mucosal thickening or air-fluid levels. No fracture is identified. The stimulator wires are identified in the soft tissues of the left neck. No radiopaque foreign bodies are identified in the region of the orbits. ASSESSMENT AND PLAN Painful Jaundice -concerning for obstruction with high direct bilirubin, epigastric and RUQ pain Cirrhosis - MELD 16, likely acutely elevated with obstructive jaundice. Etiology unknown, no know alcohol use Cholecystectomy - 11/2019, had GISEL drain and unsuccessful IOC Developmentally disabled - lives in senior care PLAN - Recommend MRCP with sedation, should this be positive will need transfer to tertiary center for ERCP, unfortunately due to FB in chest, unable to proceed at this time - Will order Stat RUQ US and US doppler - Discussed with primary high concern for obstructive process, recommend initiating transfer to tertiary center. If obstructed and bed not available may need PTHC by IR - Recommend trending LFTs and INR - Recommend monitoring CBC for white count - Recommend monitoring for cholangitis - Will start on prophylactic antibiotics - Currently on clear liquids will need to be NPO for imaging, will make NPO at midnight - Attempted to call senior care with home number listed in chart, they do not have him as a resident. Contacted Mandy Oscar and left a message. Contacts Le who is the house furnishings supervisor and a great person of contact but Mandy is who will be needed for consent. If he needs to be transferred to a tertiary center they would prefer [facility] Attending Supervising Physician's Attestation Statement I performed a history and physical examination on the patient and discussed the management with the physician management assistant. I reviewed and agree with the findings and plan as documented in her note . Patient went for XR today to identify any possible metals in the body to prepare for MRI due to being a poor historian. Radiologist called stating that a metal structure with wires leading up to the neck was found in the chest and would need to be identified before they could proceed with any imaging. IMS attending notified. documented in this encounter [facility] Work Phone: 08-28-2020 Note Discharge Summary Jesus Shaver : 1955 ADMIT DATE: 08/25/2020 DISCHARGE DATE: 08/28/2020 PRIMARY CARE PHYSICIAN: No primary care provider on file. VISIT STATUS: Admission CODE STATUS: Full Code DISCHARGE DIAGNOSES: Active Problems: Bradycardia Jaundice Resolved Problems: * No resolved hospital problems. * HOSPITAL COURSE: Jesus is a 65 y.o. male?who presented to [facility] with Jaundice and abdominal pain. He endorses epigastric abdominal pain that he characterizes as "just hurts" it is intermittent and worse with eating. He denies alleviating factors or radiation. He denies nausea, vomiting, dysphagia, odynophagia, melena, or hematochezia. He states his bowel movements are fine but cannot define appearance. He denies constipation or diarrhea. Last bowel movement unknown. Denies history of tobacco use, EtOH, and recreational drugs. Denies use of daily NSAIDs and tylenol. No blood thinners. Patient poor historian due to MRDD. the following was his diagnosis and management: # Acute epigastric pain with new onset jaundice/scleral icterus with elevated total bili of 8.20, Direct Bili of 6.74, AST 161 and ALT of 155 and alk phosp of 218. (Note: per records, had hx of liver biopsy in past that showed early signs of cirrhosis (per records from [place]). ?GI consulted and has seen. Recommends?MRCP with sedation and states that?should this be positive will need transfer to tertiary center for ERCP. I spoke with GI INSPECTOR PACKER GLASS CONTAINER Albino yesterday morning. They recommend transfer to [facility] for ERCP. I called and [facility] is backed up with 90 patient's waiting for beds. They recommended I call [facility]. I called and they do NOT have GI doc patient relations specialist that does ERCP. I called [facility] back. They ended up setting patient up for [facility] who do have bed available and does have GI doctor that does ERCP on. Dr. Hernandez accepted and will discharge there once bed is available (today they do have a bed and will transfer there). # Liver cirrhosis (as mentioned above) # Bradycardia with HR in the 40s-50s - seen by cardiology who states that this is a Incidental finding of sinus bradycardia. No tele events. No high grade blocks. No pauses. HR is as low as 40-50 bpm. No symptoms of chest pain/shortness of breath or dizziness. Sinus connor likely due to severe jaundice. Will resolve with correctio of hyperbilirubinemia. Reassurance. No further cardiac testing is indicated at this time. # Thrombocytopenia - suspect due to liver cirrhosis (Note: per records, had hx of liver biopsy in past that showed early signs of cirrhosis per records from [place]). # Hypokalemia - replace as needed # Hx of MRDD - has court appointed guardian # Hx of seizures # Hx of cerebellar atrophy and gait disturbance # Chronic arthritis Physical exam: HEENT:??Eyes:?+?scleral icterus Oral:?Tongue is semi-moist Cardiovascular:??S1/S2 heard, RRR Respiratory:?Clear to auscultation bilaterally Abdomen: Soft, non-tender, non-distended bowel sounds positive Musculoskeletal:??No obvious deformities seen Skin:?No visible rashes or lesions.?+ for jaundice Addendum: Patient admitted with epigastric pain and new onset of jaundice. History of liver bx showed signs of cirrhosis. ?Patient transferred to tertiary center for ERCP. ?After study the etiology of jaundice was felt to be: Obstructive jaundice SIGNIFICANT DIAGNOSTIC STUDIES: CONSULTANTS: GI MEDICATION CHANGES: RECOMMENDED NEXT STEPS: DISCHARGE MEDICATIONS: Jesus Shaver Home Medication Instructions NADINE:[id number] Printed on:08/28/20 1228 Medication Information calcium-vitamin D (OSCAL-500) 500-200 MG-UNIT per tablet Take 1 tablet by mouth daily divalproex (DEPAKOTE ER) 500 MG extended release tablet Take 1,500 mg by mouth daily docusate sodium (COLACE) 100 MG capsule Take 100 mg by mouth daily as needed for Constipation lamoTRIgine (LAMICTAL) 100 MG tablet Take 100 mg by mouth daily Multiple Vitamins-Minerals (THERAPEUTIC MULTIVITAMIN-MINERALS) tablet Take 1 tablet by mouth daily polyethylene glycol (GLYCOLAX) 17 g packet Take 17 g by mouth daily pyridoxine (B-6) 100 MG tablet Take 100 mg by mouth daily senna (SENOKOT) 8.6 MG tablet Take 1 tablet by mouth 2 times daily tamsulosin (FLOMAX) 0.4 MG capsule Take 0.4 mg by mouth daily QHS zonisamide (ZONEGRAN) 100 MG capsule Take 100 mg by mouth daily DIET: DIET CLEAR LIQUID; ACTIVITY: up with assist PENDING STUDIES: No DISPOSITION: Transfer to [facility] Hospital FACILITY: [facility] Follow up with No follow-up provider specified. on INSTRUCTIONS TO MA/SW: Please call patient on day after discharge (must document patient contacted within 2 business days of discharge). FOLLOW UP QUESTIONS FOR MA/SW: 1. Did you get medications filled and taking them as instruct (more content not included)... [facility] 08-28-2020 Hospital course Narrative Discharge Summary Jesus Shaver : 1955 ADMIT DATE: 08/25/2020 DISCHARGE DATE: 08/28/2020 PRIMARY CARE PHYSICIAN: No primary care provider on file. VISIT STATUS: Admission CODE STATUS: Full Code DISCHARGE DIAGNOSES: Active Problems: Bradycardia Jaundice Resolved Problems: * No resolved hospital problems. * HOSPITAL COURSE: Jesus is a 65 y.o. male who presented to [facility] with Jaundice and abdominal pain. He endorses epigastric abdominal pain that he characterizes as "just hurts" it is intermittent and worse with eating. He denies alleviating factors or radiation. He denies nausea, vomiting, dysphagia, odynophagia, melena, or hematochezia. He states his bowel movements are fine but cannot define appearance. He denies constipation or diarrhea. Last bowel movement unknown. Denies history of tobacco use, EtOH, and recreational drugs. Denies use of daily NSAIDs and tylenol. No blood thinners. Patient poor historian due to MRDD. the following was his diagnosis and management: # Acute epigastric pain with new onset jaundice/scleral icterus with elevated total bili of 8.20, Direct Bili of 6.74, AST 161 and ALT of 155 and alk phosp of 218. (Note: per records, had hx of liver biopsy in past that showed early signs of cirrhosis (per records from [place]). GI consulted and has seen. Recommends MRCP with sedation and states that should this be positive will need transfer to tertiary center for ERCP. I spoke with GI [employer] Albino yesterday morning. They recommend transfer to [facility] for ERCP. I called and [facility] is backed up with 90 patient's waiting for beds. They recommended I call [facility]. I called and they do NOT have GI doc patient relations specialist that does ERCP. I called [facility] back. They ended up setting patient up for [facility] who do have bed available and does have GI doctor that does ERCP on. Dr. Hernandez accepted and will discharge there once bed is available (today they do have a bed and will transfer there). # Liver cirrhosis (as mentioned above) # Bradycardia with HR in the 40s-50s - seen by cardiology who states that this is a Incidental finding of sinus bradycardia. No tele events. No high grade blocks. No pauses. HR is as low as 40-50 bpm. No symptoms of chest pain/shortness of breath or dizziness. Sinus connor likely due to severe jaundice. Will resolve with correctio of hyperbilirubinemia. Reassurance. No further cardiac testing is indicated at this time. # Thrombocytopenia - suspect due to liver cirrhosis (Note: per records, had hx of liver biopsy in past that showed early signs of cirrhosis per records from [place]). # Hypokalemia - replace as needed # Hx of MRDD - has court appointed guardian # Hx of seizures # Hx of cerebellar atrophy and gait disturbance # Chronic arthritis Physical exam: HEENT: Eyes: + scleral icterus Oral: Tongue is semi-moist Cardiovascular: S1/S2 heard, RRR Respiratory: Clear to auscultation bilaterally Abdomen: Soft, non-tender, non-distended bowel sounds positive Musculoskeletal: No obvious deformities seen Skin: No visible rashes or lesions. + for jaundice SIGNIFICANT DIAGNOSTIC STUDIES: CONSULTANTS: GI MEDICATION CHANGES: RECOMMENDED NEXT STEPS: DISCHARGE MEDICATIONS: Jesus Shaver Home Medication Instructions NADINE:[id number] Printed on:08/28/20 1228 Medication Information calcium-vitamin D (OSCAL-500) 500-200 MG-UNIT per tablet Take 1 tablet by mouth daily divalproex (DEPAKOTE ER) 500 MG extended release tablet Take 1,500 mg by mouth daily docusate sodium (COLACE) 100 MG capsule Take 100 mg by mouth daily as needed for Constipation lamoTRIgine (LAMICTAL) 100 MG tablet Take 100 mg by mouth daily Multiple Vitamins-Minerals (THERAPEUTIC MULTIVITAMIN-MINERALS) tablet Take 1 tablet by mouth daily polyethylene glycol (GLYCOLAX) 17 g packet Take 17 g by mouth daily pyridoxine (B-6) 100 MG tablet Take 100 mg by mouth daily senna (SENOKOT) 8.6 MG tablet Take 1 tablet by mouth 2 times daily tamsulosin (FLOMAX) 0.4 MG capsule Take 0.4 mg by mouth daily QHS zonisamide (ZONEGRAN) 100 MG capsule Take 100 mg by mouth daily DIET: DIET CLEAR LIQUID; ACTIVITY: up with assist PENDING STUDIES: No DISPOSITION: Transfer to [facility] FACILITY: [facility] Follow up with No follow-up provider specified. on INSTRUCTIONS TO MA/SW: Please call patient on day after discharge (must document patient contacted within 2 business days of discharge). FOLLOW UP QUESTIONS FOR MA/SW: 1. Did you get medications filled and taking them as instructed from discharge? 2. Are you following your discharge instructions from your hospital stay? 3. Please confirm patient is scheduled for a follow up appointment within the above time frame. DISCHARGE TIME: > 30 minutes SIGNED: TODD HYATT MD 08/28/2020, 12:28 PM documented in this encounter [facility] Work Phone: 06-16-2020 Note HNO ID: [id number] Author: Jesus Mills Service: ? Author Type: Physician Type: Progress Notes Filed: 06/16/2020 8:31 AM Note Text: Patient presents with: Yearly Exam HPI: Patient presents today for office visit for annual check up. Has been doing well since back [place] [facility]. Has started to gain weight again. Back to work and had his covid shots. See previous notes regarding hospitalization. No seizures. Bowels and urine doing well. No behavioral issues that are new. MEDICATIONS: Current Outpatient Medications Medication Sig - divalproex DR (DEPAKOTE) 500 mg EC tablet Take 3 tablets by mouth daily at bedtime. at bedtime - lamoTRIgine ER (LAMICTAL XR) 100 mg 24 hr tablet Take 1 tablet by mouth once daily. - aqaggpm-ojjbuatfu-vzlrmaw D3 (OYSTER SHELL CALCIUM-VITAMIN D) 500 mg(1,250mg) -200 unit per tablet TAKE (1) TABLET BY MOUTH TWICE A DAY. - multivitamin-ferrous fumarate-folic acid (CERTAVITE-ANTIOXIDANT) Take 1 tablet by mouth once daily. - senna (SENNA) 8.6 mg tab Take 1 tablet by mouth twice daily. - polyethylene glycol 3350 (GAVILAX) 17 gram packet Take 1 Packet by mouth once daily. - pyridoxine, vitamin B6, (VITAMIN B-6) 100 mg tablet Take 1 tablet by mouth once daily. - zonisamide (ZONEGRAN) 100 mg capsule Take 1 capsule by mouth twice daily. - acetaminophen (TYLENOL) 650 mg suppository 1 Suppository by RECTAL route every 4 hours as needed. - acetaminophen (TYLENOL) 325 mg tablet Take 2 tablets by mouth every 6 hours as needed for Pain. - bisacodyl (DULCOLAX) 10 mg supp 1 Suppository by RECTAL route once daily as needed. - magnesium hydroxide (MILK OF MAGNESIA) 400 mg/5 mL suspension Take 15 mL by mouth once daily as needed for Constipation. Notify physician if no BM in 4 days - tamsulosin ER (FLOMAX) 0.4 mg Take 1 capsule by mouth daily at bedtime. - COMPOUNDED PRESCRIPTION Wheelchair with seat belt - COMPOUNDED PRESCRIPTION [place] [employer]ift No current facility-administered medications for this visit. ALLERGIES: ALLERGIES Allergen Reactions - Keppra [Levetiracet* Other: See Comments Increased seizures - Vicks Vaporub [Camp* Rash PAST MEDICAL HISTORY Diagnosis Date - Acute cholecystitis - Bilateral leg weakness - Mild mental retardation - Seizure disorder (HCC) PAST SURGICAL HISTORY Procedure Laterality Date - PAST SURGICAL HISTORY OF VNS - REMOVAL TESTIS,SIMPLE Right 10/20/2019 Orchiectomy No family history on file. Social History Tobacco Use - Smoking status: Never Smoker - Smokeless tobacco: Never Used Substance Use Topics - Alcohol use: No - Drug use: No Reviewed current medications, allergies, past medical history, surgical history, family history and social history today. REVIEW OF SYSTEMS All other reviewed and negative other than HPI. HEALTH MAINTENANCE: Reviewed health maintenance issues today and recommended the following in detail. COLORECTAL CANCER SCREENING due on 03/19/2019 VITALS: BP 116/64 Pulse 85 Temp 36.4 ?C (97.5 ?F) Resp 16 Wt 83 kg (183 lb) SpO2 98% Last 4 Encounter Wt Readings: Date: Wt: 06/16/2020 83 kg (183 lb) 11/28/2018 0 kg () 11/01/2018 93.5 kg (206 lb 3.2 oz) 06/04/2018 96.2 kg (212 lb) PHYSICAL EXAMINATION: General appearance: Well appearing, alert, in no acute distress, well-hydrated, well nourished. Skin: Skin color, texture, turgor normal, no suspicious rashes or lesions Head: Normocephalic, no masses, lesions, tenderness or abnormalities, wearing helmet Eyes: nonincteric fundi. Neck: Supple Lungs: Lungs clear to auscultation. No wheezing, rhonchi, rales Heart: RRR without murmur, gallop, or rubs. No ectopy Abdomen: Normal abdominal exam, Abdomen soft, non-tender. Bowel sounds normal. No masses, organomegaly Extremities: No deformities, edema, skin discoloration, clubbing or cyanosis. Good capillary refill. Musculoskeletal: No joint swelling, deformity, or tenderness Peripheral pulses: Normal Neuro: Negative. No deficits. ASSESSMENT/PLAN: 1. Seizure disorder (HCC) - ICD9: 345.90, ICD10: G40.909 (primary diagnosis) - continue meds. Check labs. - CBC + DIFF - CMP (CMP) (FOR [facility] USE) - VALPROIC A/DEPAKENE - LAMOTRIGINE 2. Ataxia - ICD9: 781.3, ICD10: R27.0 - doing better. 3. Development delay - ICD9: 783.40, ICD10: R62.50 - stable. 4. Medication monitoring encounter - ICD9: V58.83, ICD10: Z51.81 - check labs 5. Screening for prostate cancer - ICD9: V76.44, ICD10: Z12.5 - PSA/PROSTSPECAG SCRN 6. Screening for colon cancer - ICD9: V76.51, ICD10: Z12.11 - FECAL OCCULT BLOOD TEST 7. Mixed hyperlipidemia - ICD9: 272.2, ICD10: E78.2 - check labs. - LIPID PANEL (LIPB) (FOR REMOTE [facility] USE) Jesus Mills MD RTO in six months and prn. [facility] Evaluation note Diagnosis Jaundice Jaundice, unspecified, not of Bradycardia Other specified cardiac dysrhythmias documented in this encounter [facility] Work Phone: Evaluation noteNo assessment information available [facility] Work Phone: Summary Purpose Family History No Family History Records Found Mother Name Dates Details Family history unknown(V49.8 9, Z78.9) Status:Active Father Name Dates Details Family history unknown(V49.8 9, Z78.9) Status:Active Relationship Condition Age at Onset Recorded Date/T sonali Unknown Family History?- Unknown November 6:23pm Family History?- Unknown November 6:23pm Relationship Condition Age at Onset Recorded Date/T sonali Unknown Family History?- Unknown November 5:23pm Family History?- Unknown November 5:23pm Advance Directives No Advanced Directives Records FoundLatest Code Status on File Code Status Date Activated Date Inactivated Comments Full Code 08/26/2020 1:22 AM Advance Directive Response Recorded Date/ Time Advance Directives Yes October 17 4:53pm Living Will Yes October 20, 2020 1:27am Power of Neuropsychology Division Chief Yes October 20 1:27am Advance Directive Response Recorded Date/ Time Advance Directives Yes October 17 3:53pm Living Will Yes October 20, 2020 12:27am Power of Neuropsychology Division Chief Yes October 20 12:27am Chief Complaint and Reason for Visit Chief Complaint LONG TERM LABWORK LONG TERM LABWORK LONG TERM LAB WORK LONG TERM LAB WORK Chief Complaint LONG TERM LAB WOR K LABWORK LABWORK Chief Complaint LONG TERM LABWORK Chief Complaint LONG TERM LABWORK LONG TERM LAB WORK Chief Complaint LONG TERM LABWORK LONG TERM LAB WORK LABWORK Chief Complaint LONG TERM LABWORK LONG TERM LAB WORK LABWORK LONG TERM LABWORK Chief Complaint LONG TERM LABWORK LONG TERM LAB WORK LABWORK LONG TERM LABWORK LONG TERM LABWORK Chief Complaint LONG TERM LABWORK LONG TERM LABWORK LONG TERM LABWORK LONG TERM LABWORK Chief Complaint LONG TERM LABWORK LONG TERM LABWORK LABWORK Chief Complaint LABWORK Chief Complaint LABWORK LONG TERM LAB WORK Chief Complaint LABWORK LONG TERM LAB WORK LABWORK Additional Source Comments (unrecognized sect ion and content) No Status Records FoundNo Status Records FoundNo Status Records FoundNo Status Records FoundNo Status Records FoundNo Status Records FoundNo Status Records Found INFORMATION SOURCE (unrecogn ized section and content) DATE CREATED AUTHOR 01/30/2018 [facility] DATE CREATED AUTHOR AUTHOR'S ORGANIZ ATION 02/07/2020 [facility] [place] DATE CREATED AUTHOR AUTHOR'S ORGANIZ ATION 09/24/[address] [facility] DATE CREATED AUTHOR AUTHOR'S ORGANIZ ATION 10/13/2020 [facility] DATE CREATED AUTHOR AUTHOR'S ORGANIZ ATION 03/25/2021 [facility] DATE CREATED AUTHOR AUTHOR'S ORGANIZ ATION 05/17/2021 [facility] DATE CREATED AUTHOR AUTHOR'S ORGANIZ ATION [facility]/09/20[facility] Goals (unrecognized section and content) Goals may be documented in a n alternate sectionGoals may be documented in an alternate sectionGoals may be documented in an alternate sectionGoals may be documented in an alternate sectionGoals may be documented in an alternate sectionGoals may be documented in an alternate sectionGoals may be documented in an alternate sectionGoals may be documented in an alternate sectionGoals may be documented in an alternate sectionGoals may be documented in an alternate sectionGoals may be documented in an alternate sectionGoals may be documented in an alternate sectionGoals may be documented in an alternate sectionGoals may be documented in an alternate sectionGoals may be documented in an alternate section Care Teams (unrecognized sec tion and content) Team Status: Active Member Role Status Dates Dr. Jesus Mills MD Family Provider Active Dr. Beth Ventura MD Primary Care Provider Active Team Status: Inactive Member Role Status Dates Dr. Beth Ventura MD Primary Care Provider Active Dr. Beth Ventura MD Attending Provider Active Team Status: Active Member Role Status Dates Dr. Beth Ventura MD Primary Care Provider Active Dr. Beth Ventura MD Attending Provider Active Team Status: Inactive Member Role Status Dates Dr. Bteh Ventura MD Primary Care Provider Active Dr. Beth Ventura MD Attending Provider, Referring Pr ovider Active Team Status: Inactive Member Role Status Dates Dr. Beth Ventura MD Primary Care Provider Active Dr. Beth GARCIA MD Attending Provider Active Team Status: Inactive Member Role Status Dates Dr. Beth Ventura MD Primary Care Provider Active Dr. Beth GARCIA MD Attending Provider, Referring Provider Active FOR RECORDS PERTAINING TO PATIENTS WHO ARE OR HAVE BEEN ENROLLED IN A CHEMICAL DEPENDENCY/SUBSTANCEABUSE PROGRAM, SOME INFORMATION MAY BE OMITTED. This clinical summary was aggregated from multiple sources. Caution should be exercised in using it in the provision of clinical care. This summary normalizes information from multiple sources, and as a consequence, information in this document may materially change the coding, format and clinical context of patient data. In addition, data may be omitted in some cases. CLINICAL DECISIONS SHOULD BE BASED ON THE PRIMARY CLINICAL RECORDS. [facility] [employer] provides no warranty or guarantee of the accuracy or completeness of information in this document.
[2025-02-19 09:41] LABS: Valproic Acid (Depakene) Level 69 ug/mL (50-100)
== END ==
LOC: OLS.SW 05:00
PROVIDERS: PCP Internal Medicine; Visit Provider Internal Medicine
DX: G40.909 Epilepsy, unspecified, not intractable, without status epilepticus (principal)
CPT/HCPCS: 36415; 80164

== ENCOUNTER → 2025-03-17 05:00 | Outpatient (REF) | payer MEDICAID, SELFPAY ==
--- OUTSIDE RECORDS SUMMARY | 2025-03-17 04:05 | XMS RPT_ITS | CCD ---
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 Name Role Phone Ari Valles II Unavailable Unavailable Unavailable Unavailable Unavailable Unavailable Primary Care Provider Unavailabl e Gudla, Beth Primary Care Unavailable Gudla OLS, Beth Referring Unavailable Gudla OLS, Beth Attending Unavailable Gudla OLS, Beth Attending Unavailable Gudla, Beth Primary Care Unavailable Gudla, Beth Primary Care Unavailable Gudla OLS, Beth Attending Unavailable Gudla, Beth Primary Care Unavailable Gudla OLS, Beth Referring Unavailable Gudla OLS, Beth Attending Unavailable Allergies [...] [facility] (16 sources) cloBAZam Drug Allergy 1 [facility] (17 sources) levETIRAcetam; Translations: [levetiracetam] Drug Allergy 1 [facility] (1 source) Camphor Crystals Allergy to drug (finding) HI-Yvkvxpn-Hjb land Work Phone: (1 source) Menthol Eucalyptus LIQD Allergy to drug (finding) NP-Jdpckey-Kzl land Work Phone: (1 source) Turpentine Oil OIL Allergy to drug (finding) FR-Dtfbhyz-Eqx land Work Phone: (15 sources) Camphor Drug Allergy 1 Other [facility] (15 sources) Eucalyptus extract Drug Allergy 1 [facility] (16 sources) Eucalyptus oil; Translations: [eucalyptus oil] Drug Allergy 1 [facility] (15 sources) Menthol Drug Allergy 1 [facility] (15 sources) Turpentine Drug Allergy 1 [facility] (16 sources) petrolatum,white; Translations: [petrolatum,white ] Allergy to substance 1 [facility] (1 source) Camphor Drug Allergy 1 [facility] (1 source) cloBAZam Drug Allergy 1 [facility] (1 source) Eucalyptus extract Drug Allergy 1 [facility] (1 source) Menthol Drug Allergy 1 [facility] (1 source) turpentine oil Drug allergy (disorder) 1 [facility] Medications Current Medications Medication Drug Class(es) [...] Carbon ate-Vitamin D3 Active 1 EACH PO BID@0800,1999January 05, 2020 12:00am take 1 tablet by dean th once daily calcium-vitamin D (OSCAL-500) 500-200 MG-UNIT per tablet Take 1 tablet by mouth daily 0 Active docusate sodium 100 mg oral capsule (2 sources) Start: 08-26-2020 take 100 mg by mouth once daily as needed for constipation 100 mg, Oral, DAILY PRN, Constipation, Starting Rosa M 08/26/20 at 0119 Do not crush or [...] take 1 tablet by mouth once daily Pgjyramoawxw-Cckt-Yq lic Acid (Certavite-Antioxida nt) 18-400 mg-mcg Tablet Active 1 TABLET PO DAILY October 20, 2020 2:15am Start: 10-20-2020 take 1 tablet by dean th once daily Pvzsttqpgvqw-Vhum-Hsykq Acid (Certavite-Antioxidant) 18-400 mg-mcg Tablet Active 1 TABLET PO DAILY October 19, 2020 11:00pm Start: 10-20-2020 take 1 tablet by dean th once daily Csjtbwfvbmpn-Bgwd-Mtsyp Acid (Certavite-Antioxidant) 18-400 mg-mcg Tablet Active 1 TABLET PO DAILY October 20, 2020 12:00am piperacillin 3000 mg / tazobactam 375 mg injection (1 source) Penicillin-class Antibacterial, beta Lactamase Inhibitor Start: 08-27-2020 piperacillin-tazobactam (ZOSYN) 3375 mg in dextrose 50 mL IVPB extended infusion (premix) polyethylene glycol 3350 50898 mg powder for oral solution (20 sources) [...] 08-26-2020 promethazine (PHENERGAN) tablet 12.5 mg sennosides, [facility] 8.6 mg oral tablet (17 sources) Start: [...] or with frequent/long duration piggyback infusions, Starting [facility] 08/26/20 at 0119 Administer at the same rate as the piggyback being infused. Start: 08-26-2020 take 5-40 mL intrave nously once as needed 5-40 mL, Intravenous, PRN, Line Care, After every IV line use, Starting [facility] 08/26/20 at 0119 For Line Patency: [...] once daily Divalproex Discontinued 1000 MG PO DAILY@0 May 31, 2018 1:00am October 18, 2019 11:10am [...] EACH PO EVERY 4 HOURS NEEDED 20 October 20, 2019 October 25, 2019 12:02am aluminm,mag gro-twwbcda-lvohxa (15 sources) Start: 10-20-2020 End: 10-23-2020 take 1 mL by mouth every four hours aluminm,mag ljh-mhpchqc-vtdyft Discontinued 30 ML SL/PO Q4H October 20, 2020 2:15am October 23, 2020 4:13pm Start: 10-20-2020 End: 10-23-2020 take 1 mL by mouth every four hours aluminm,mag yfb-ppevytj-hmjgux Discontinued 30 ML SL/PO Q4H October 19, 2020 11:00pm October 23, 2020 3:13pm Start: 10-20-2020 End: 10-23-2020 take 1 mL by mouth every four hours aluminm,mag rcu-lvohizr-imfxwf Discontinued 30 ML SL/PO Q4H October 20, [...] unspecified] 10-23-2020 Episodic Deficiency and other anemia (1 source) Anemia, unspecified; Translations: [Anemia, unspecified] Onset: 02-19-2025 Episodic Developmental disorders (15 sources) Mental retardation [...] Test Name Value Interpretation Reference Range Facility Valproic Acid (Depakene) Lev gil 02-19-2025 VALPROIC ACID 69 ug/mL Normal 50-100 [facility] Comment on above: Order Comment: 304.1 Result Comment: Valp roic Acid concentrations >100 ug/mL are potentially toxic. Performed By: #### L 501.8155 #### [facility] [address] [place], [address] Basic Metabolic Profile (BMP )on 01-15-2025 BUN/CRE 22.1 RATIO High 10-20 [facility] Comment on above: Performed By: #### L 500.4050, L503.5510 #### [facility] [address] [place], [address] Calcium [Mass/Vol] 8.8 mg/dL Normal 7.6-11.0 [facility] Comment on above: Performed By: #### L 500.4050, L503.5510 #### [facility] [address] [place], [address] Chloride [Moles/Vol] 107 mmol/L Normal 98-108 [facility] Comment on above: Performed By: #### L 500.4050, L503.5510 #### [facility] [address] [place], [address] CO2 [Moles/Vol] 22.8 mmol/L Normal 21.0-32.0 [facility] Comment on above: Performed By: #### L 500.4050, L503.5510 #### [facility] [address] [place], [address] Creatinine [Mass/Vol] 0.94 mg/dL Normal 0.70-1.20 [facility] Comment on above: Performed By: #### L 500.4050, L503.5510 #### [facility] [address] [place], [address] GAP 10 Normal 5-15 [facility] Comment on above: Performed By: #### L 500.4050, L503.5510 #### [facility] [address] [place], [address] GFR/1.73 sq M.predicted among non-blacks MDRD (S/P/Bld) [Vol rate/Area] 88 mL/min/{1.73_m2} Normal >60 [facility] Comment on above: Result Comment: mL/m in/1.73m2 CKD-EPI Creatinine Equation (2020) Performed By: #### L 500.4050, L503.5510 #### [facility] [address] [place], [address] Glucose [Mass/Vol] 98 mg/dL Normal 70-99 [facility] Comment on above: Performed By: #### L 500.4050, L503.5510 #### [facility] [address] [place], [address] Potassium [Moles/Vol] 4.2 mmol/L Normal 3.3-5.1 [facility] Comment on above: Performed By: #### L 500.4050, L503.5510 #### [facility] [address] [place], [address] Sodium [Moles/Vol] 140 mmol/L Normal 133-145 [facility] Comment on above: Performed By: #### L 500.4050, L503.5510 #### [facility] [address] [place], [address] Urea nitrogen [Mass/Vol] 21 mg/dL High 4-19 [facility] Comment on above: Performed By: #### L 500.4050, L503.5510 #### [facility] [address] [place], [address] CBC-Complete Blood Cnt No Di ffon 01-15-2025 Erythrocyte distribution width (RBC) [Ratio] 12.8 % Normal 11.6-14.6 [facility] Comment on above: Performed By: #### L 100.0500, L500.2500, L501.5200 #### [facility] [address] [place], [address] Hematocrit (Bld) [Volume fraction] 40.0 % Normal 40-54 [facility] Comment on above: Performed By: #### L 100.0500, L500.2500, L501.5200 #### [facility] [address] [place], [address] Hemoglobin (Bld) [Mass/Vol] 13.2 g/dL Normal 13.0-16.5 [facility] Comment on above: Performed By: #### L 100.0500, L500.2500, L501.5200 #### [facility] [address] [place], [address] MCH (RBC) [Entitic mass] 32.0 pg Normal 27.0-32.0 [facility] Comment on above: Performed By: #### L 100.0500, L500.2500, L501.5200 #### [facility] [address] [place], [address] MCHC (RBC) [Mass/Vol] 33.0 g/dL Normal 32-36 [facility] Comment on above: Performed By: #### L 100.0500, L500.2500, L501.5200 #### [facility] [address] [place], [address] MCV (RBC) [Entitic vol] 97.1 fL High 80-94 [facility] Comment on above: Performed By: #### L 100.0500, L500.2500, L501.5200 #### [facility] [address] [place], [address] Platelet mean volume (Bld) [Entitic vol] 11.5 fL Normal 6.2-12.0 [facility] Comment on above: Performed By: #### L 100.0500, L500.2500, L501.5200 #### [facility] [address] [place], [address] Platelets (Bld) [#/Vol] 202 10*3/uL Normal 150-450 [facility] Comment on above: Performed By: #### L 100.0500, L500.2500, L501.5200 #### [facility] [address] [place], [address] RBC (Bld) [#/Vol] 4.12 10*6/uL Low 4.6-6.2 [facility] Comment on above: Performed By: #### L 100.0500, L500.2500, L501.5200 #### [facility] [address] [place], [address] RDW SD 46.0 fl High 35.1-43.9 [facility] Comment on above: Performed By: #### L 100.0500, L500.2500, L501.5200 #### [facility] [address] [place], [address] WBC (Bld) [#/Vol] 8.2 10*3/uL Normal 4.4-11.0 [facility] Comment on above: Performed By: #### L 100.0500, L500.2500, L501.5200 #### [facility] [address] [place], [address] Magnesiumon 01-15-2025 Magnesium [Mass/Vol] 2.6 mg/dL High 1.5-2.2 [facility] Comment on above: Performed By: #### L 500.4050, L503.5510 #### [facility] [address] [place], [address] Lamotrigine (Lamictal) Level on 06-04-2024 LAMOTRIGINE 16.4 ug/mL Normal 2.0-20.0 [facility] Comment on above: Order Comment: 304.1 Result Comment: Dete ction Limit = 1.0 Performed at: [address] [id number] Safety Belt Installer: Keyona Rodriguez MD, Phone: [phone] Performed By: #### L 100.0100, L501.8100, L500.4050, L3300.4400, L501.9985, L501.5200 #### [facility] [address] [place], [address] CBC W/Diff, Automatedon 02- 0-2024 Absolute Lymph 2.29 X10 3/uL Normal 0.83-4.51 [facility] Comment on above: Order Comment: 304.1 Performed By: #### L 100.0100, L501.8100, L500.4050, L3300.4400, L501.9985, L501.5200 #### [facility] [address] [place], [address] Absolute Neut 1.9 X10 3/uL Low 2.0-7.7 [facility] Comment on above: Order Comment: 304.1 Performed By: #### L 100.0100, L501.8100, L500.4050, L3300.4400, L501.9985, L501.5200 #### [facility] [address] [place], [address] Basophils/100 WBC (Bld) 1.1 % High 0-1 [facility] Comment on above: Order Comment: 304.1 Performed By: #### L 100.0100, L501.8100, L500.4050, L3300.4400, L501.9985, L501.5200 #### [facility] [address] [place], [address] Eosinophils/100 WBC (Bld) 0.8 % Normal 0-5 [facility] Comment on above: Order Comment: 304.1 Performed By: #### L 100.0100, L501.8100, L500.4050, L3300.4400, L501.9985, L501.5200 #### [facility] [address] [place], [address] Erythrocyte distribution width (RBC) [Ratio] 13.2 % Normal 11.6-14.6 [facility] Comment on above: Order Comment: 304.1 Performed By: #### L 100.0100, L501.8100, L500.4050, L3300.4400, L501.9985, L501.5200 #### [facility] [address] [place], [address] Hematocrit (Bld) [Volume fraction] 43.4 % Normal 40-54 [facility] Comment on above: Order Comment: 304.1 Performed By: #### L 100.0100, L501.8100, L500.4050, L3300.4400, L501.9985, L501.5200 #### [facility] [address] [place], [address] Hemoglobin (Bld) [Mass/Vol] 13.9 g/dL Normal 13.0-16.5 [facility] Comment on above: Order Comment: 304.1 Performed By: #### L 100.0100, L501.8100, L500.4050, L3300.4400, L501.9985, L501.5200 #### [facility] [address] [place], [address] IG% 0.400 Normal 0.0-0.9 [facility] Comment on above: Order Comment: 304.1 Result Comment: IG% - Immature Granulocytes (promyelocytes, myelocytes and metamyelocytes) > 1% indicates that a LEFT SHIFT is Present. Performed By: #### L 100.0100, L501.8100, L500.4050, L3300.4400, L501.9985, L501.5200 #### [facility] [address] [place], [address] Lymphocytes/100 WBC (Bld) 43.3 % High 19-41 [facility] Comment on above: Order Comment: 304.1 Performed By: #### L 100.0100, L501.8100, L500.4050, L3300.4400, L501.9985, L501.5200 #### [facility] [address] [place], [address] MCH (RBC) [Entitic mass] 30.9 pg Normal 27.0-32.0 [facility] Comment on above: Order Comment: 304.1 Performed By: #### L 100.0100, L501.8100, L500.4050, L3300.4400, L501.9985, L501.5200 #### [facility] [address] [place], [address] MCHC (RBC) [Mass/Vol] 32.0 g/dL Normal 32-36 [facility] Comment on above: Order Comment: 304.1 Performed By: #### L 100.0100, L501.8100, L500.4050, L3300.4400, L501.9985, L501.5200 #### [facility] [address] [place], [address] MCV (RBC) [Entitic vol] 96.4 fL High 80-94 [facility] Comment on above: Order Comment: 304.1 Performed By: #### L 100.0100, L501.8100, L500.4050, L3300.4400, L501.9985, L501.5200 #### [facility] [address] [place], [address] Monocytes/100 WBC (Bld) 18.3 % High 0-10 [facility] Comment on above: Order Comment: 304.1 Performed By: #### L 100.0100, L501.8100, L500.4050, L3300.4400, L501.9985, L501.5200 #### [facility] [address] [place], [address] Neutrophils/100 WBC (Bld) 36.1 % Low 47-70 [facility] Comment on above: Order Comment: 304.1 Performed By: #### L 100.0100, L501.8100, L500.4050, L3300.4400, L501.9985, L501.5200 #### [facility] [address] [place], [address] Nucleated RBC (Bld) [#/Vol] 0 10*3/uL Normal 0-5 [facility] Comment on above: Order Comment: 304.1 Performed By: #### L 100.0100, L501.8100, L500.4050, L3300.4400, L501.9985, L501.5200 #### [facility] [address] [place], [address] Platelet mean volume (Bld) [Entitic vol] 11.8 fL Normal 6.2-12.0 [facility] Comment on above: Order Comment: 304.1 Performed By: #### L 100.0100, L501.8100, L500.4050, L3300.4400, L501.9985, L501.5200 #### [facility] [address] [place], [address] Platelets (Bld) [#/Vol] 149 10*3/uL Low 150-450 [facility] Comment on above: Order Comment: 304.1 Performed By: #### L 100.0100, L501.8100, L500.4050, L3300.4400, L501.9985, L501.5200 #### [facility] [address] [place], [address] RBC (Bld) [#/Vol] 4.50 10*6/uL Low 4.6-6.2 [facility] Comment on above: Order Comment: 304.1 Performed By: #### L 100.0100, L501.8100, L500.4050, L3300.4400, L501.9985, L501.5200 #### [facility] [address] [place], [address] RDW SD 47.5 fl High 35.1-43.9 [facility] Comment on above: Order Comment: 304.1 Performed By: #### L 100.0100, L501.8100, L500.4050, L3300.4400, L501.9985, L501.5200 #### [facility] [address] [place], [address] WBC (Bld) [#/Vol] 5.3 10*3/uL Normal 4.4-11.0 [facility] Comment on above: Order Comment: 304.1 Performed By: #### L 100.0100, L501.8100, L500.4050, L3300.4400, L501.9985, L501.5200 #### [facility] [address] [place], [address] Comprehensive Metabolic Prof ilon 06-02-2024 Albumin [Mass/Vol] 2.8 g/dL Low 3.2-5.0 [facility] Comment on above: Order Comment: 304.1 Performed By: #### L 100.0100, L501.8100, L500.4050, L3300.4400, L501.9985, L501.5200 #### [facility] [address] [place], [address] Albumin/Globulin [Mass ratio] 0.7 {ratio} Low 0.9-2.4 [facility] Comment on above: Order Comment: 304.1 Performed By: #### L 100.0100, L501.8100, L500.4050, L3300.4400, L501.9985, L501.5200 #### [facility] [address] [place], [address] ALK P 46 U/L Normal 45-117 [facility] Comment on above: Order Comment: 304.1 Performed By: #### L 100.0100, L501.8100, L500.4050, L3300.4400, L501.9985, L501.5200 #### [facility] [address] [place], [address] ALT [Catalytic activity/Vol] 45 U/L Normal 16-61 [facility] Comment on above: Order Comment: 304.1 Performed By: #### L 100.0100, L501.8100, L500.4050, L3300.4400, L501.9985, L501.5200 #### [facility] [address] [place], [address] AST [Catalytic activity/Vol] 61 U/L High 15-37 [facility] Comment on above: Order Comment: 304.1 Performed By: #### L 100.0100, L501.8100, L500.4050, L3300.4400, L501.9985, L501.5200 #### [facility] [address] [place], [address] Bilirubin [Mass/Vol] 0.40 mg/dL Normal 0.20-1.00 [facility] Comment on above: Order Comment: 304.1 Result Comment: For patients on eltrombopag therapy, use of Dimension [place] TBIL is not recommended. Performed By: #### L 100.0100, L501.8100, L500.4050, L3300.4400, L501.9985, L501.5200 #### [facility] [address] [place], [address] BUN/CRE 29.2 RATIO High 10-20 [facility] Comment on above: Order Comment: 304.1 Performed By: #### L 100.0100, L501.8100, L500.4050, L3300.4400, L501.9985, L501.5200 #### [facility] [address] [place], [address] CA,Total 9.2 mg/dL Normal 8.5-10.1 [facility] Comment on above: Order Comment: 304.1 Performed By: #### L 100.0100, L501.8100, L500.4050, L3300.4400, L501.9985, L501.5200 #### [facility] [address] [place], [address] Chloride [Moles/Vol] 108 mmol/L High 98-107 [facility] Comment on above: Order Comment: 304.1 Performed By: #### L 100.0100, L501.8100, L500.4050, L3300.4400, L501.9985, L501.5200 #### [facility] [address] [place], [address] CO2 [Moles/Vol] 27.0 mmol/L Normal 21.0-32.0 [facility] Comment on above: Order Comment: 304.1 Performed By: #### L 100.0100, L501.8100, L500.4050, L3300.4400, L501.9985, L501.5200 #### [facility] [address] [place], [address] Creatinine [Mass/Vol] 0.92 mg/dL Normal 0.70-1.30 [facility] Comment on above: Order Comment: 304.1 Result Comment: The validity of the calculated GFR GFRAA in patients over 70 years has not been determined. Clinical correlation is essential. Performed By: #### L 100.0100, L501.8100, L500.4050, L3300.4400, L501.9985, L501.5200 #### [facility] [address] [place], [address] EST GFR - AA 105 mL/min Normal >60 [facility] Comment on above: Order Comment: 304.1 Result Comment: Afri can [facility] GFR Calc Performed By: #### L 100.0100, L501.8100, L500.4050, L3300.4400, L501.9985, L501.5200 #### [facility] [address] [place], [address] GAP 7 Normal 5-15 [facility] Comment on above: Order Comment: 304.1 Performed By: #### L 100.0100, L501.8100, L500.4050, L3300.4400, L501.9985, L501.5200 #### [facility] [address] [place], [address] GFR/1.73 sq M.predicted among non-blacks MDRD (S/P/Bld) [Vol rate/Area] 87 mL/min/{1.73_m2} Normal >60 [facility] Comment on above: Order Comment: 304.1 Result Comment: Non- GFR Calc Performed By: #### L 100.0100, L501.8100, L500.4050, L3300.4400, L501.9985, L501.5200 #### [facility] [address] [place], [address] Globulin (S) [Mass/Vol] 3.9 g/dL Normal 2.2-4.2 [facility] Comment on above: Order Comment: 304.1 Performed By: #### L 100.0100, L501.8100, L500.4050, L3300.4400, L501.9985, L501.5200 #### [facility] [address] [place], [address] Glucose [Mass/Vol] 95 mg/dL Normal 74-106 [facility] Comment on above: Order Comment: 304.1 Performed By: #### L 100.0100, L501.8100, L500.4050, L3300.4400, L501.9985, L501.5200 #### [facility] [address] [place], [address] Potassium [Moles/Vol] 3.6 mmol/L Normal 3.5-5.1 [facility] Comment on above: Order Comment: 304.1 Performed By: #### L 100.0100, L501.8100, L500.4050, L3300.4400, L501.9985, L501.5200 #### [facility] [address] [place], [address] Sodium [Moles/Vol] 142 mmol/L Normal 136-145 [facility] Comment on above: Order Comment: 304.1 Performed By: #### L 100.0100, L501.8100, L500.4050, L3300.4400, L501.9985, L501.5200 #### [facility] [address] [place], [address] T PROT 6.7 g/dL Normal 6.4-8.2 [facility] Comment on above: Order Comment: 304.1 Performed By: #### L 100.0100, L501.8100, L500.4050, L3300.4400, L501.9985, L501.5200 #### [facility] [address] [place], [address] Urea nitrogen [Mass/Vol] 27 mg/dL High 7-18 [facility] Comment on above: Order Comment: 304.1 Performed By: #### L 100.0100, L501.8100, L500.4050, L3300.4400, L501.9985, L501.5200 #### [facility] [address] [place], [address] Hemoglobin A1con 06-02-2024 HbA1c (Bld) [Mass fraction] 5.3 % Normal 3.8-5.6 [facility] Comment on above: Order Comment: 304.1 Result Comment: Norm al < 5.7 % Prediabetic 5.7 - 6.4 % Diabetic >or= 6.5 % Please note range changes. Performed By: #### L 100.0100, L501.8100, L500.4050, L3300.4400, L501.9985, L501.5200 #### [facility] [address] [place], [address] Magnesiumon 06-02-2024 Magnesium [Mass/Vol] 2.7 mg/dL High 1.6-2.6 [facility] Comment on above: Order Comment: 304.1 Performed By: #### L 100.0100, L501.8100, L500.4050, L3300.4400, L501.9985, L501.5200 #### [facility] [address] [place], [address] Valproic Acid (Depakene) Lev gil 06-02-2024 VALPROIC ACID 86 ug/mL Normal 50-100 [facility] Comment on above: Order Comment: 304.1 Performed By: #### L 100.0100, L501.8100, L500.4050, L3300.4400, L501.9985, L501.5200 #### [facility] [address] [place], [address] Ammoniaon 02-25-2024 Ammonia (P) [Moles/Vol] 25.0 umol/L Normal 11-32 [facility] Comment on above: Performed By: #### L [id number], [id number] #### [facility] [address] [place], [address] Comprehensive Metabolic Prof ilon 02-25-2024 Albumin [Mass/Vol] 3.0 g/dL Low 3.2-5.0 [facility] Comment on above: Performed By: #### L [id number], [id number] #### [facility] [address] [place], [address] Albumin/Globulin [Mass ratio] 0.9 {ratio} Normal 0.9-2.4 [facility] Comment on above: Performed By: #### L [id number], [id number] #### [facility] [address] [place], [address] ALK P 62 U/L Normal 45-117 [facility] Comment on above: Performed By: #### L [id number], [id number] #### [facility] [address] [place], [address] ALT [Catalytic activity/Vol] 28 U/L Normal 16-61 [facility] Comment on above: Performed By: #### L [id number], [id number] #### [facility] [address] [place], [address] AST [Catalytic activity/Vol] 21 U/L Normal 15-37 [facility] Comment on above: Performed By: #### L [id number], [id number] #### [facility] [address] [place], [address] Bilirubin [Mass/Vol] 0.40 mg/dL Normal 0.20-1.00 [facility] Comment on above: Result Comment: For patients on eltrombopag therapy, use of Dimension [place] TBIL is not recommended. Performed By: #### L [id number], [id number] #### [facility] [address] [place], [address] BUN/CRE 27.5 RATIO High 10-20 [facility] Comment on above: Performed By: #### L [id number], [id number] #### [facility] [address] [place], [address] CA,Total 9.1 mg/dL Normal 8.5-10.1 [facility] Comment on above: Performed By: #### L [id number], [id number] #### [facility] [address] [place], [address] Chloride [Moles/Vol] 113 mmol/L High 98-107 [facility] Comment on above: Performed By: #### L [id number], [id number] #### [facility] [address] [place], [address] CO2 [Moles/Vol] 25.0 mmol/L Normal 21.0-32.0 [facility] Comment on above: Performed By: #### L [id number], [id number] #### [facility] [address] [place], [address] Creatinine [Mass/Vol] 0.91 mg/dL Normal 0.70-1.30 [facility] Comment on above: Result Comment: The validity of the calculated GFR GFRAA in patients over 70 years has not been determined. Clinical correlation is essential. Performed By: #### L [id number], [id number] #### [facility] [address] [place], [address] EST GFR - AA 107 mL/min Normal >60 [facility] Comment on above: Result Comment: Afri can [facility] GFR Calc Performed By: #### L [id number], [id number] #### [facility] [address] [place], [address] GAP 5 Normal 5-15 [facility] Comment on above: Performed By: #### L [id number], [id number] #### [facility] [address] [place], [address] GFR/1.73 sq M.predicted among non-blacks MDRD (S/P/Bld) [Vol rate/Area] 88 mL/min/{1.73_m2} Normal >60 [facility] Comment on above: Result Comment: Non- GFR Calc Performed By: #### L [id number], [id number] #### [facility] [address] [place], [address] Globulin (S) [Mass/Vol] 3.5 g/dL Normal 2.2-4.2 [facility] Comment on above: Performed By: #### L [id number], [id number] #### [facility] [address] [place], [address] Glucose [Mass/Vol] 96 mg/dL Normal 74-106 [facility] Comment on above: Performed By: #### L [id number], [id number] #### [facility] [address] [place], [address] Potassium [Moles/Vol] 3.7 mmol/L Normal 3.5-5.1 [facility] Comment on above: Performed By: #### L [id number], [id number] #### [facility] [address] [place], [address] Sodium [Moles/Vol] 143 mmol/L Normal 136-145 [facility] Comment on above: Performed By: #### L [id number], [id number] #### [facility] [address] [place], [address] T PROT 6.5 g/dL Normal 6.4-8.2 [facility] Comment on above: Performed By: #### L [id number], [id number] #### [facility] [address] [place], [address] Urea nitrogen [Mass/Vol] 25 mg/dL High 7-18 [facility] Comment on above: Performed By: #### L [id number], [id number] #### [facility] [address] [place], [address] Basophil percentageOrdered B y: Beth Ventura on 07-16-2023 Chloride [Moles/Vol] 107 mmol/L 98-107 [facility] Glucose [Mass/Vol] 82 mg/dL 74-106 [facility] Potassium [Moles/Vol] 4.2 mmol/L 3.5-5.1 [facility] Sodium [Moles/Vol] 138 mmol/L 136-145 [facility] - Chemistry and C hemistry - challengeOrdered By: Beth Ventura on 07-16-2023 CO2 [Moles/Vol] 26.0 mmol/L 21.0-32.0 [facility] Urea nitrogen/Creatinine [Mass ratio] 16.3 mg/mg 10-20 [facility] No Panel InformationOrdered By: Beth Ventura on 07-16-2023 Estimated GFR (MDRD) Amer 98 mL/min >60 [facility] Comment on above: GFR Calc Estimated GFR (MDRD) Non-Af Amer 81 mL/min >60 [facility] Comment on above: Non- GFR Calc Serum or plasma calcium michael urement (mass/volume)Ordered By: Beth Ventura on 07-16-2023 Calcium [Mass/Vol] 9.3 mg/dL 8.5-10.1 [facility] Serum or plasma creatinine m easurement (mass/volume)Ordered By: Beth Ventura on 07-16-2023 Creatinine [Mass/Vol] 0.98 mg/dL 0.70-1.30 [facility] Comment on above: The validity of the calculated GFR & GFRAA in patients over 70 years has not been determined. Clinical correlation is essential. Serum or plasma urea nitroge n measurement (mass/volume)Ordered By: Beth Ventura on 07-16-2023 Urea nitrogen [Mass/Vol] 16 mg/dL 7-18 [facility] Thin prep Papanicolaou smear with manual screeningOrdered By: Beth Ventura on 07-16-2023 Thin prep Papanicolaou smear with manual screening 5 5-15 [facility] Basophil percentageOrdered B y: Beth Ventura on 05-18-2023 Chloride [Moles/Vol] 110 mmol/L 98-107 [facility] Glucose [Mass/Vol] 99 mg/dL 74-106 [facility] Potassium [Moles/Vol] 4.1 mmol/L 3.5-5.1 [facility] Sodium [Moles/Vol] 140 mmol/L 136-145 [facility] - Chemistry and C hemistry - challengeOrdered By: Beth Ventura on 05-18-2023 CO2 [Moles/Vol] 27.0 mmol/L 21.0-32.0 [facility] Magnesium [Mass/Vol] 2.6 mg/dL 1.6-2.6 [facility] Urea nitrogen/Creatinine [Mass ratio] 26.3 mg/mg 10-20 [facility] No Panel InformationOrdered By: Beth Ventura on 05-18-2023 Estimated GFR (MDRD) Amer 102 mL/min >60 [facility] Comment on above: GFR Calc Estimated GFR (MDRD) Non-Af Amer 84 mL/min >60 [facility] Comment on above: Non- GFR Calc Serum or plasma calcium michael urement (mass/volume)Ordered By: Beth Ventura on 05-18-2023 Calcium [Mass/Vol] 9.9 mg/dL 8.5-10.1 [facility] Serum or plasma creatinine m easurement (mass/volume)Ordered By: Beth Ventura on 05-18-2023 Creatinine [Mass/Vol] 0.95 mg/dL 0.70-1.30 [facility] Comment on above: The validity of the calculated GFR & GFRAA in patients over 70 years has not been determined. Clinical correlation is essential. Serum or plasma lamotrigine measurement (mass/volume)Ordered By: Beth Ventura on 05-18-2023 lamoTRIgine [Mass/Vol] 12.6 ug/mL 2.0-20.0 [facility] Comment on above: Detection Limit = 1. 0Performed at: - [address] [id number] Director: Keyona Rodriguez MD, Phone: [phone] Serum or plasma urea nitroge n measurement (mass/volume)Ordered By: Beth Ventura on 05-18-2023 Urea nitrogen [Mass/Vol] 25 mg/dL 7-18 [facility] Thin prep Papanicolaou smear with manual screeningOrdered By: Beth Ventura on 05-18-2023 Thin prep Papanicolaou smear with manual screening 3 5-15 [facility] Absolute lymphocyte countOrd ered By: Beth Ventura on 05-01-2023 Lymphocytes Auto (Unsp spec) [#/Vol] 5.56 10*3/uL 0.83-4.51 [facility] Basophil percentageOrdered B y: Beth Ventura on 05-01-2023 Ammonia (P) [Moles/Vol] 39.0 umol/L 11-32 [facility] Basophils/100 WBC (Bld) 1.0 % 0-1 [facility] Chloride [Moles/Vol] 111 mmol/L 98-107 [facility] Eosinophils/100 WBC (Bld) 2.8 % 0-5 [facility] Glucose [Mass/Vol] 88 mg/dL 74-106 [facility] Neutrophils (Bld) [#/Vol] 3.7 10*3/uL 2.0-7.7 [facility] Neutrophils/100 WBC (Bld) 34.4 % 47-70 [facility] Potassium [Moles/Vol] 4.0 mmol/L 3.5-5.1 [facility] Sodium [Moles/Vol] 140 mmol/L 136-145 [facility] WBC (Bld) [#/Vol] 10.8 10*3/uL 4.4-11.0 [facility] Blood erythrocytes count (nu mber/volume)Ordered By: Beth Ventura on 05-01-2023 RBC (Bld) [#/Vol] 3.91 10*6/uL 4.6-6.2 [facility] Blood hemoglobin measurement (mass/volume)Ordered By: Beth Ventura on 05-01-2023 Hemoglobin (Bld) [Mass/Vol] 12.3 g/dL 13.0-16.5 [facility] Blood lymphocytes/100 leukoc ytesOrdered By: Beth Ventura on 05-01-2023 Lymphocytes/100 WBC (Bld) 51.7 % 19-41 [facility] Blood manual differential co mment interpretation (narrative result)Ordered By: Beth Ventura on 05-01-2023 Manual differential comment Saleem (Bld) [Interp] SCANNED [facility] Comment on above: LYMPHOCYTOSIS Blood monocytes/100 leukocyt esOrdered By: Beth Ventura on 05-01-2023 Monocytes/100 WBC (Bld) 9.4 % 0-10 [facility] Blood platelet mean volumeOr dered By: Beth Ventura on 05-01-2023 Platelet mean volume (Bld) [Entitic vol] 11.2 fL 6.2-12.0 [facility] Determination of erythrocyte mean corpuscular volume (MCV)Ordered By: Beth Ventura on 05-01-2023 MCV (RBC) [Entitic vol] 97.2 fL 80-94 [facility] Hematocrit Auto (Bld) [Volum e fraction]Ordered By: Beth Ventura on 05-01-2023 Hematocrit (Bld) [Volume fraction] 38.0 % 40-54 [facility] - Chemistry and C hemistry - challengeOrdered By: Beth Ventura on 05-01-2023 CO2 [Moles/Vol] 24.0 mmol/L 21.0-32.0 [facility] Urea nitrogen/Creatinine [Mass ratio] 21.7 mg/mg 10-20 [facility] - Hematology and Cell countsOrdered By: Beth Ventura on 05-01-2023 Erythrocyte distribution width (RBC) [Entitic vol] 50.4 fL 35.1-43.9 [facility] Erythrocyte distribution width (RBC) [Ratio] 14.2 % 11.6-14.6 [facility] Immature granulocytes/100 WBC (Bld) 0.700 % 0.0-0.9 [facility] Comment on above: IG% - Immature Granu locytes (promyelocytes, myelocytes and metamyelocytes) > 1% indicates that a LEFT SHIFT is Present. MCH (RBC) [Entitic mass] 31.5 pg 27.0-32.0 [facility] Nucleated RBC/100 WBC (Bld) [Ratio] 0 % 0-5 [facility] MCHC Auto (RBC) [Mass/Vol]Or dered By: Beth Ventura on 05-01-2023 MCHC (RBC) [Mass/Vol] 32.4 g/dL 32-36 [facility] No Panel InformationOrdered By: Beth Ventura on 05-01-2023 Estimated GFR (MDRD) Amer 112 mL/min >60 [facility] Comment on above: GFR Calc Estimated GFR (MDRD) Non-Af Amer 92 mL/min >60 [facility] Comment on above: Non- GFR Calc Platelets bldOrdered By: Diana Ventura on 05-01-2023 Platelets (Bld) [#/Vol] 177 10*3/uL 150-450 [facility] Serum or plasma calcium michael urement (mass/volume)Ordered By: Beth Ventura on 05-01-2023 Calcium [Mass/Vol] 8.9 mg/dL 8.5-10.1 [facility] Serum or plasma creatinine m easurement (mass/volume)Ordered By: Beth Ventura on 05-01-2023 Creatinine [Mass/Vol] 0.88 mg/dL 0.70-1.30 [facility] Comment on above: The validity of the calculated GFR & GFRAA in patients over 70 years has not been determined. Clinical correlation is essential. Serum or plasma urea nitroge n measurement (mass/volume)Ordered By: Beth Ventura on 05-01-2023 Urea nitrogen [Mass/Vol] 19 mg/dL 7-18 [facility] Thin prep Papanicolaou smear with manual screeningOrdered By: Beth Ventura on 05-01-2023 Thin prep Papanicolaou smear with manual screening 5 5-15 [facility] Basophil percentageOrdered B y: Beth Ventura on 02-26-2023 Ammonia (P) [Moles/Vol] 43.0 umol/L 11-32 [facility] Bilirubin [Mass/Vol] 0.30 mg/dL 0.20-1.00 [facility] Comment on above: For patients on eltr ombopag therapy, use of Dimension [place] TBIL is not recommended. Chloride [Moles/Vol] 112 mmol/L 98-107 [facility] Glucose [Mass/Vol] 101 mg/dL 74-106 [facility] Comment on above: Fasting Glucose resu lt from 100 to 125 mg/dL suggests IMPAIRED HOMEOSTASIS per A.D.A. criteria. Potassium [Moles/Vol] 4.1 mmol/L 3.5-5.1 [facility] Protein [Mass/Vol] 6.7 g/dL 6.4-8.2 [facility] Sodium [Moles/Vol] 143 mmol/L 136-145 [facility] - Chemistry and C hemistry - challengeOrdered By: Beth Ventura on 02-26-2023 ALP [Catalytic activity/Vol] 65 U/L 45-117 [facility] ALT [Catalytic activity/Vol] 25 U/L 16-61 [facility] CO2 [Moles/Vol] 25.0 mmol/L 21.0-32.0 [facility] Globulin (S) [Mass/Vol] 3.9 g/dL 2.2-4.2 [facility] Urea nitrogen/Creatinine [Mass ratio] 26.4 mg/mg 10-20 [facility] No Panel InformationOrdered By: Beth Ventura on 02-26-2023 Estimated GFR (MDRD) Amer 125 mL/min >60 [facility] Comment on above: GFR Calc Estimated GFR (MDRD) Non-Af Amer 103 mL/min >60 [facility] Comment on above: Non- GFR Calc Valproic Acid (Depakene) Level 89 ug/mL 50-100 [facility] Serum or plasma albumin michael urement (mass/volume)Ordered By: Beth Ventura on 02-26-2023 Albumin [Mass/Vol] 2.8 g/dL 3.2-5.0 [facility] Serum or plasma albumin/glob ulin mass ratioOrdered By: Beth Ventura on 02-26-2023 Albumin/Globulin [Mass ratio] 0.7 {ratio} 0.9-2.4 [facility] Serum or plasma calcium michael urement (mass/volume)Ordered By: Beth Ventura on 02-26-2023 Calcium [Mass/Vol] 9.2 mg/dL 8.5-10.1 [facility] Serum or plasma creatinine m easurement (mass/volume)Ordered By: Beth Ventura on 02-26-2023 Creatinine [Mass/Vol] 0.80 mg/dL 0.70-1.30 [facility] Comment on above: The validity of the calculated GFR & GFRAA in patients over 70 years has not been determined. Clinical correlation is essential. Serum or plasma urea nitroge n measurement (mass/volume)Ordered By: Beth Ventura on 02-26-2023 Urea nitrogen [Mass/Vol] 21 mg/dL 7-18 [facility] Thin prep Papanicolaou smear with manual screeningOrdered By: Beth Ventura on 02-26-2023 Thin prep Papanicolaou smear with manual screening 20 U/L 15-37 [facility] Thin prep Papanicolaou smear with manual screening 6 5-15 [facility] Absolute lymphocyte countOrd ered By: Beth Ventura on 10-16-2022 Lymphocytes Auto (Unsp spec) [#/Vol] 4.98 10*3/uL 0.83-4.51 [facility] Basophil percentageOrdered B y: Beth Ventura on 10-16-2022 Basophils/100 WBC (Bld) 1.2 % 0-1 [facility] Chloride [Moles/Vol] 111 mmol/L 98-107 [facility] Eosinophils/100 WBC (Bld) 2.2 % 0-5 [facility] Glucose [Mass/Vol] 103 mg/dL 74-106 [facility] Comment on above: Fasting Glucose resu lt from 100 to 125 mg/dL suggests IMPAIRED HOMEOSTASIS per A.D.A. criteria. Neutrophils (Bld) [#/Vol] 3.7 10*3/uL 2.0-7.7 [facility] Neutrophils/100 WBC (Bld) 36.2 % 47-70 [facility] Potassium [Moles/Vol] 4.0 mmol/L 3.5-5.1 [facility] Sodium [Moles/Vol] 142 mmol/L 136-145 [facility] WBC (Bld) [#/Vol] 10.2 10*3/uL 4.4-11.0 [facility] Blood erythrocytes count (nu mber/volume)Ordered By: Beth Ventura on 10-16-2022 RBC (Bld) [#/Vol] 4.22 10*6/uL 4.6-6.2 [facility] Blood hemoglobin measurement (mass/volume)Ordered By: Beth Ventura on 06-26-2023 Hemoglobin (Bld) [Mass/Vol] 13.5 g/dL 13.0-16.5 [facility] Blood lymphocytes/100 leukoc ytesOrdered By: Beth Ventura on 10-16-2022 Lymphocytes/100 WBC (Bld) 48.7 % 19-41 [facility] Blood monocytes/100 leukocyt esOrdered By: Bethcameron Ventura on 10-16-2022 Monocytes/100 WBC (Bld) 10.9 % 0-10 [facility] Blood platelet mean volumeOr dered By: Beth Ventura on 10-16-2022 Platelet mean volume (Bld) [Entitic vol] 11.3 fL 6.2-12.0 [facility] Determination of erythrocyte mean corpuscular volume (MCV)Ordered By: Beth Ventura on 10-16-2022 MCV (RBC) [Entitic vol] 98.1 fL 80-94 [facility] Hematocrit Auto (Bld) [Volum e fraction]Ordered By: Beth Ventura on 10-16-2022 Hematocrit (Bld) [Volume fraction] 41.4 % 40-54 [facility] - Chemistry and C hemistry - challengeOrdered By: Bethcameron Ventura on 10-16-2022 CO2 [Moles/Vol] 26.0 mmol/L 21.0-32.0 [facility] Urea nitrogen/Creatinine [Mass ratio] 19.8 mg/mg 10-20 [facility] - Hematology and Cell countsOrdered By: Beth Ventura on 10-16-2022 Erythrocyte distribution width (RBC) [Entitic vol] 50.1 fL 35.1-43.9 [facility] Erythrocyte distribution width (RBC) [Ratio] 13.7 % 11.6-14.6 [facility] Immature granulocytes/100 WBC (Bld) 0.800 % 0.0-0.9 [facility] Comment on above: IG% - Immature Granu locytes (promyelocytes, myelocytes and metamyelocytes) > 1% indicates that a LEFT SHIFT is Present. MCH (RBC) [Entitic mass] 32.0 pg 27.0-32.0 [facility] Nucleated RBC/100 WBC (Bld) [Ratio] 0 % 0-5 [facility] Auto (RBC) [Mass/Vol]Or dered By: Beth Ventura on 10-16-2022 MCHC (RBC) [Mass/Vol] 32.6 g/dL 32-36 [facility] No Panel InformationOrdered By: Beth Ventura on 10-16-2022 Estimated GFR (MDRD) Amer 123 mL/min >60 [facility] Comment on above: GFR Calc Estimated GFR (MDRD) Non-Af Amer 101 mL/min >60 [facility] Comment on above: Non- GFR Calc Valproic Acid (Depakene) Level 62 ug/mL 50-100 [facility] Platelets bldOrdered By: Diana Ventura on 10-16-2022 Platelets (Bld) [#/Vol] 202 10*3/uL 150-450 [facility] Serum or plasma calcium michael urement (mass/volume)Ordered By: Beth Ventura on 10-16-2022 Calcium [Mass/Vol] 9.0 mg/dL 8.5-10.1 [facility] Serum or plasma creatinine m easurement (mass/volume)Ordered By: Beth Ventura on 10-16-2022 Creatinine [Mass/Vol] 0.81 mg/dL 0.70-1.30 [facility] Comment on above: The validity of the calculated GFR & GFRAA in patients over 70 years has not been determined. Clinical correlation is essential. Serum or plasma urea nitroge n measurement (mass/volume)Ordered By: Beth Ventura on 10-16-2022 Urea nitrogen [Mass/Vol] 16 mg/dL 7-18 [facility] Thin prep Papanicolaou smear with manual screeningOrdered By: Beth Ventura on 10-16-2022 Thin prep Papanicolaou smear with manual screening 5 5-15 [facility] Culture, urineOrdered By: Dr Nilesh Ventura on 09-06-2022 Bacteria identified Cx Nom (U) Presumptive E. coli [facility] Basophil percentageOrdered B y: Dr. Ventura on 09-04-2022 Basophil percentage 50-100 SEEN /hpf 0-5 [facility] Bilirubin Test strip Ql (U)O rdered By: Dr. Ventura on 09-04-2022 Bilirubin Ql (U) Negative Negative [facility] Culture, urineOrdered By: Miah Ventura on 09-04-2022 Bacteria identified Cx Nom (U) Presumptive E. coli [facility] Ketones Test strip Ql (U)Ord ered By: Dr. Ventura on 09-04-2022 Ketones Ql (U) 5 mg/dl Negative [facility] Mucus LM Ql (Urine sed)Order ed By: Dr. Ventura on 09-04-2022 Mucus Ql (Urine sed) 0 SEEN /hpf [facility] Nitrite Test strip Ql (U)Ord ered By: Dr. Ventura on 09-04-2022 Nitrite Ql (U) Positive Negative [facility] Protein Test strip Ql (U)Ord ered By: Dr. Ventura on 09-04-2022 Protein Ql (U) 15 mg/dl Negative [facility] Squamous epithelial cells de tection in urine sediment by light microscopyOrdered By: Dr. Ventura on 09-04-2022 Epithelial cells.squamous LM Ql (Urine sed) 0-5 SEEN /hpf 0-5 [facility] Urine blood detectionOrdered By: Dr. Ventura on 09-04-2022 RBC Ql (U) 10 /ul Negative [facility] RBC Ql (U) 0 SEEN /hpf 0-5 [facility] Urine clarityOrdered By: Dr. Ventura on 09-04-2022 Clarity (U) Sl. Cloudy Clear [facility] Urine color determinationOrd ered By: Dr. Ventura on 09-04-2022 Color (U) Yellow Yellow [facility] Urine glucose detectionOrder ed By: Dr. Ventura on 09-04-2022 Glucose Ql (U) Normal mg/dl Normal [facility] Urine leukocyte esterase det ection by dipstickOrdered By: Dr. Ventura on 09-04-2022 Leukocyte esterase Test strip Ql (U) 500 /ul Negative [facility] Urine pHOrdered By: Dr. Ambar santa on 09-04-2022 pH (U) 7.0 [pH] 5.0 - 8.0 [facility] Urine sediment bacteria coun t by microscopy (number/high power field)Ordered By: Dr. Ventura on 09-04-2022 Bacteria LM.HPF (Urine sed) [#/Area] 2 /[HPF] None Seen [facility] Urine specific gravity measu rementOrdered By: Dr. Ventura on 09-04-2022 Specific gravity (U) [Rel density] 1.015 1.002-1.030 [facility] Urobilinogen Auto test strip Ql (U)Ordered By: Dr. Ventura on 09-04-2022 Urobilinogen Ql (U) 1 mg/dl Normal [facility] Absolute lymphocyte countOrd ered By: Dr. Ventura on 08-29-2022 Lymphocytes Auto (Unsp spec) [#/Vol] 5.45 10*3/uL 0.83-4.51 [facility] Basophil percentageOrdered B y: Dr. Ventura on 08-29-2022 Ammonia (P) [Moles/Vol] 65.0 umol/L 11-32 [facility] Basophils/100 WBC (Bld) 0.6 % 0-1 [facility] Chloride [Moles/Vol] 108 mmol/L 98-107 [facility] Eosinophils/100 WBC (Bld) 1.5 % 0-5 [facility] Glucose [Mass/Vol] 92 mg/dL 74-106 [facility] Neutrophils (Bld) [#/Vol] 5.9 10*3/uL 2.0-7.7 [facility] Neutrophils/100 WBC (Bld) 45.7 % 47-70 [facility] Potassium [Moles/Vol] 3.9 mmol/L 3.5-5.1 [facility] Comment on above: Slight Hemolysis, Re sult may be falsely increased. Sodium [Moles/Vol] 139 mmol/L 136-145 [facility] WBC (Bld) [#/Vol] 12.8 10*3/uL 4.4-11.0 [facility] Blood erythrocytes count (nu mber/volume)Ordered By: Dr. Ventura on 08-29-2022 RBC (Bld) [#/Vol] 4.24 10*6/uL 4.6-6.2 [facility] Blood hemoglobin measurement (mass/volume)Ordered By: Dr. Ventura on 08-29-2022 Hemoglobin (Bld) [Mass/Vol] 13.7 g/dL 13.0-16.5 [facility] Blood lymphocytes/100 leukoc ytesOrdered By: Dr. Ventura on 08-29-2022 Lymphocytes/100 WBC (Bld) 42.5 % 19-41 [facility] Blood manual differential co mment interpretation (narrative result)Ordered By: Dr. Ventura on 08-29-2022 Manual differential comment Saleem (Bld) [Interp] SCANNED [facility] Comment on above: LYMPHOCYTOSIS NOTED Blood monocytes/100 leukocyt esOrdered By: Dr. Ventura on 08-29-2022 Monocytes/100 WBC (Bld) 9.3 % 0-10 [facility] Blood platelet mean volumeOr dered By: Dr. Ventura on 08-29-2022 Platelet mean volume (Bld) [Entitic vol] 11.7 fL 6.2-12.0 [facility] Determination of erythrocyte mean corpuscular volume (MCV)Ordered By: Dr. Ventura on 08-29-2022 MCV (RBC) [Entitic vol] 96.9 fL 80-94 [facility] Hematocrit Auto (Bld) [Volum e fraction]Ordered By: Dr. Ventura on 08-29-2022 Hematocrit (Bld) [Volume fraction] 41.1 % 40-54 [facility] Laboratory - Chemistry and C hemistry - challengeOrdered By: Dr. Ventura on 08-29-2022 CO2 [Moles/Vol] 24.0 mmol/L 21.0-32.0 [facility] Urea nitrogen/Creatinine [Mass ratio] 14.8 mg/mg 10-20 [facility] Laboratory - Hematology and Cell countsOrdered By: Dr. Ventura on 08-29-2022 Erythrocyte distribution width (RBC) [Entitic vol] 48.0 fL 35.1-43.9 [facility] Erythrocyte distribution width (RBC) [Ratio] 13.4 % 11.6-14.6 [facility] Immature granulocytes/100 WBC (Bld) 0.400 % 0.0-0.9 [facility] Comment on above: IG% - Immature Granu locytes (promyelocytes, myelocytes and metamyelocytes) > 1% indicates that a LEFT SHIFT is Present. MCH (RBC) [Entitic mass] 32.3 pg 27.0-32.0 [facility] Nucleated RBC/100 WBC (Bld) [Ratio] 0 % 0-5 [facility] MCHC Auto (RBC) [Mass/Vol]Or dered By: Dr. Ventura on 08-29-2022 MCHC (RBC) [Mass/Vol] 33.3 g/dL 32-36 [facility] No Panel InformationOrdered By: Dr. Ventura on 08-29-2022 Estimated GFR (MDRD) Amer 122 mL/min >60 [facility] Comment on above: GFR Calc Estimated GFR (MDRD) Non-Af Amer 101 mL/min >60 [facility] Comment on above: Non- GFR Calc Reactive Lymphocytes 1+ [facility] Platelets bldOrdered By: Dr. Ventura on 08-29-2022 Platelets (Bld) [#/Vol] 196 10*3/uL 150-450 [facility] Serum or plasma calcium michael urement (mass/volume)Ordered By: Dr. Ventura on 08-29-2022 Calcium [Mass/Vol] 9.8 mg/dL 8.5-10.1 [facility] Serum or plasma creatinine m easurement (mass/volume)Ordered By: Dr. Ventura on 08-29-2022 Creatinine [Mass/Vol] 0.81 mg/dL 0.70-1.30 [facility] Comment on above: The validity of the calculated GFR & GFRAA in patients over 70 years has not been determined. Clinical correlation is essential. Serum or plasma urea nitroge n measurement (mass/volume)Ordered By: Dr. Ventura on 08-29-2022 Urea nitrogen [Mass/Vol] 12 mg/dL 7-18 [facility] Thin prep Papanicolaou smear with manual screeningOrdered By: Dr. Ventura on 08-29-2022 Thin prep Papanicolaou smear with manual screening 7 5-15 [facility] No Panel InformationOrdered By: Dr. Ventura on 07-21-2022 Valproic Acid (Depakene) Level 85 ug/mL 50-100 [facility] Absolute lymphocyte countOrd ered By: Dr. Ventura on 06-27-2022 Lymphocytes Auto (Unsp spec) [#/Vol] 4.12 10*3/uL 0.83-4.51 [facility] Basophil percentageOrdered B y: Dr. Ventura on 06-27-2022 Ammonia (P) [Moles/Vol] 28.0 umol/L 11-32 [facility] Basophils/100 WBC (Bld) 0.9 % 0-1 [facility] Chloride [Moles/Vol] 106 mmol/L 98-107 [facility] Eosinophils/100 WBC (Bld) 2.1 % 0-5 [facility] Glucose [Mass/Vol] 119 mg/dL 74-106 [facility] Comment on above: Fasting Glucose resu lt from 100 to 125 mg/dL suggests IMPAIRED HOMEOSTASIS per A.D.A. criteria. Neutrophils (Bld) [#/Vol] 2.8 10*3/uL 2.0-7.7 [facility] Neutrophils/100 WBC (Bld) 36.2 % 47-70 [facility] Potassium [Moles/Vol] 3.9 mmol/L 3.5-5.1 [facility] Sodium [Moles/Vol] 140 mmol/L 136-145 [facility] WBC (Bld) [#/Vol] 7.8 10*3/uL 4.4-11.0 [facility] Blood erythrocytes count (nu mber/volume)Ordered By: Dr. Ventura on 06-27-2022 RBC (Bld) [#/Vol] 4.42 10*6/uL 4.6-6.2 [facility] Blood hemoglobin measurement (mass/volume)Ordered By: Dr. Ventura on 06-27-2022 Hemoglobin (Bld) [Mass/Vol] 14.1 g/dL 13.0-16.5 [facility] Blood lymphocytes/100 leukoc ytesOrdered By: Dr. Ventura on 06-27-2022 Lymphocytes/100 WBC (Bld) 53.1 % 19-41 [facility] Blood monocytes/100 leukocyt esOrdered By: Dr. Ventura on 06-27-2022 Monocytes/100 WBC (Bld) 6.7 % 0-10 [facility] Blood platelet mean volumeOr dered By: Dr. Ventura on 06-27-2022 Platelet mean volume (Bld) [Entitic vol] 11.2 fL 6.2-12.0 [facility] Determination of erythrocyte mean corpuscular volume (MCV)Ordered By: Dr. Ventura on 06-27-2022 MCV (RBC) [Entitic vol] 97.3 fL 80-94 [facility] Hematocrit Auto (Bld) [Volum e fraction]Ordered By: Dr. Ventura on 06-27-2022 Hematocrit (Bld) [Volume fraction] 43.0 % 40-54 [facility] Laboratory - Chemistry and C hemistry - challengeOrdered By: Dr. Vnetura on 06-27-2022 CO2 [Moles/Vol] 25.0 mmol/L 21.0-32.0 [facility] Urea nitrogen/Creatinine [Mass ratio] 13.3 mg/mg 10-20 [facility] Laboratory - Hematology and Cell countsOrdered By: Dr. Ventura on 06-27-2022 Erythrocyte distribution width (RBC) [Entitic vol] 49.5 fL 35.1-43.9 [facility] Erythrocyte distribution width (RBC) [Ratio] 13.7 % 11.6-14.6 [facility] Immature granulocytes/100 WBC (Bld) 1.000 % 0.0-0.9 [facility] Comment on above: IG% - Immature Granu locytes (promyelocytes, myelocytes and metamyelocytes) > 1% indicates that a LEFT SHIFT is Present. MCH (RBC) [Entitic mass] 31.9 pg 27.0-32.0 [facility] Nucleated RBC/100 WBC (Bld) [Ratio] 0 % 0-5 [facility] MCHC Auto (RBC) [Mass/Vol]Or dered By: Dr. Ventura on 06-27-2022 MCHC (RBC) [Mass/Vol] 32.8 g/dL 32-36 [facility] No Panel InformationOrdered By: Dr. Ventura on 06-27-2022 Estimated GFR (MDRD) Amer 108 mL/min >60 [facility] Comment on above: GFR Calc Estimated GFR (MDRD) Non-Af Amer 89 mL/min >60 [facility] Comment on above: Non- GFR Calc Valproic Acid (Depakene) Level 105 ug/mL 50-100 [facility] Platelets bldOrdered By: Dr. Ventura on 06-27-2022 Platelets (Bld) [#/Vol] 208 10*3/uL 150-450 [facility] Serum or plasma calcium michael urement (mass/volume)Ordered By: Dr. Ventura on 06-27-2022 Calcium [Mass/Vol] 10.0 mg/dL 8.5-10.1 [facility] Serum or plasma creatinine m easurement (mass/volume)Ordered By: Dr. Ventura on 06-27-2022 Creatinine [Mass/Vol] 0.90 mg/dL 0.70-1.30 [facility] Comment on above: The validity of the calculated GFR & GFRAA in patients over 70 years has not been determined. Clinical correlation is essential. Serum or plasma urea nitroge n measurement (mass/volume)Ordered By: Dr. Ventura on 06-27-2022 Urea nitrogen [Mass/Vol] 12 mg/dL 7-18 [facility] Thin prep Papanicolaou smear with manual screeningOrdered By: Dr. Ventura on 06-27-2022 Thin prep Papanicolaou smear with manual screening 9 5-15 [facility] Absolute lymphocyte countOrd ered By: Dr. Ventura on 05-22-2022 Lymphocytes Auto (Unsp spec) [#/Vol] 4.76 10*3/uL 0.83-4.51 [facility] Basophil percentageOrdered B y: Dr. Ventura on 05-22-2022 Basophils/100 WBC (Bld) 0.8 % 0-1 [facility] Chloride [Moles/Vol] 111 mmol/L 98-107 [facility] Eosinophils/100 WBC (Bld) 2.2 % 0-5 [facility] Glucose [Mass/Vol] 97 mg/dL 74-106 [facility] Neutrophils (Bld) [#/Vol] 2.6 10*3/uL 2.0-7.7 [facility] Neutrophils/100 WBC (Bld) 30.1 % 47-70 [facility] Potassium [Moles/Vol] 3.9 mmol/L 3.5-5.1 [facility] Sodium [Moles/Vol] 142 mmol/L 136-145 [facility] WBC (Bld) [#/Vol] 8.6 10*3/uL 4.4-11.0 [facility] Blood erythrocytes count (nu mber/volume)Ordered By: Dr. Ventura on 05-22-2022 RBC (Bld) [#/Vol] 4.45 10*6/uL 4.6-6.2 [facility] Blood hemoglobin measurement (mass/volume)Ordered By: Dr. Ventura on 05-22-2022 Hemoglobin (Bld) [Mass/Vol] 14.4 g/dL 13.0-16.5 [facility] Blood lymphocytes/100 leukoc ytesOrdered By: Dr. Ventura on 05-22-2022 Lymphocytes/100 WBC (Bld) 55.2 % 19-41 [facility] Blood monocytes/100 leukocyt esOrdered By: Dr. Ventura on 05-22-2022 Monocytes/100 WBC (Bld) 11.0 % 0-10 [facility] Blood platelet mean volumeOr dered By: Dr. Ventura on 05-22-2022 Platelet mean volume (Bld) [Entitic vol] 11.7 fL 6.2-12.0 [facility] Determination of erythrocyte mean corpuscular volume (MCV)Ordered By: Dr. Ventura on 05-22-2022 MCV (RBC) [Entitic vol] 95.3 fL 80-94 [facility] Hematocrit Auto (Bld) [Volum e fraction]Ordered By: Dr. Ventura on 05-22-2022 Hematocrit (Bld) [Volume fraction] 42.4 % 40-54 [facility] Laboratory - Chemistry and C hemistry - challengeOrdered By: Dr. Ventura on 05-22-2022 CO2 [Moles/Vol] 24.0 mmol/L 21.0-32.0 [facility] Urea nitrogen/Creatinine [Mass ratio] 22.3 mg/mg 10-20 [facility] Laboratory - Hematology and Cell countsOrdered By: Dr. Ventura on 05-22-2022 Erythrocyte distribution width (RBC) [Entitic vol] 49.3 fL 35.1-43.9 [facility] Erythrocyte distribution width (RBC) [Ratio] 14.0 % 11.6-14.6 [facility] Immature granulocytes/100 WBC (Bld) 0.700 % 0.0-0.9 [facility] Comment on above: IG% - Immature Granu locytes (promyelocytes, myelocytes and metamyelocytes) > 1% indicates that a LEFT SHIFT is Present. MCH (RBC) [Entitic mass] 32.4 pg 27.0-32.0 [facility] Nucleated RBC/100 WBC (Bld) [Ratio] 0 % 0-5 [facility] MCHC Auto (RBC) [Mass/Vol]Or dered By: Dr. Ventura on 05-22-2022 MCHC (RBC) [Mass/Vol] 34.0 g/dL 32-36 [facility] No Panel InformationOrdered By: Dr. Ventura on 05-22-2022 Estimated GFR (MDRD) Amer 109 mL/min >60 [facility] Comment on above: GFR Calc Estimated GFR (MDRD) Non-Af Amer 90 mL/min >60 [facility] Comment on above: Non- GFR Calc Platelets bldOrdered By: Dr. Ventura on 05-22-2022 Platelets (Bld) [#/Vol] 208 10*3/uL 150-450 [facility] Serum or plasma C reactive p rotein measurement (mass/volume)Ordered By: Dr. Ventura on 05-22-2022 CRP [Mass/Vol] 3.83 mg/L 0.0-3.0 [facility] Comment on above: C-Reactive Protein ( CRP) provides useful information for thediagnosis, therapy and monitoring of inflammatory processesand associated diseases. For the evaluation of Relative Riskfor Cardiovascular Disease, a High Sensitivity CRP (HSCRP)should be ordered. Serum or plasma calcium michael urement (mass/volume)Ordered By: Dr. Ventura on 05-22-2022 Calcium [Mass/Vol] 9.2 mg/dL 8.5-10.1 [facility] Serum or plasma creatinine m easurement (mass/volume)Ordered By: Dr. Ventura on 05-22-2022 Creatinine [Mass/Vol] 0.90 mg/dL 0.70-1.30 [facility] Comment on above: The validity of the calculated GFR & GFRAA in patients over 70 years has not been determined. Clinical correlation is essential. Serum or plasma urea nitroge n measurement (mass/volume)Ordered By: Dr. Ventura on 05-22-2022 Urea nitrogen [Mass/Vol] 20 mg/dL 7-18 [facility] Thin prep Papanicolaou smear with manual screeningOrdered By: Dr. Ventura on 05-22-2022 Thin prep Papanicolaou smear with manual screening 7 5-15 [facility] Absolute lymphocyte countOrd ered By: Dr. Ventura on 05-15-2022 Lymphocytes Auto (Unsp spec) [#/Vol] 5.38 10*3/uL 0.83-4.51 [facility] Basophil percentageOrdered B y: Dr. Ventura on 05-15-2022 Basophils/100 WBC (Bld) 1.0 % 0-1 [facility] Chloride [Moles/Vol] 106 mmol/L 98-107 [facility] Eosinophils/100 WBC (Bld) 2.2 % 0-5 [facility] Glucose [Mass/Vol] 99 mg/dL 74-106 [facility] Neutrophils (Bld) [#/Vol] 3.2 10*3/uL 2.0-7.7 [facility] Neutrophils/100 WBC (Bld) 32.6 % 47-70 [facility] Potassium [Moles/Vol] 4.0 mmol/L 3.5-5.1 [facility] Sodium [Moles/Vol] 139 mmol/L 136-145 [facility] WBC (Bld) [#/Vol] 9.8 10*3/uL 4.4-11.0 [facility] Blood erythrocytes count (nu mber/volume)Ordered By: Dr. Ventura on 05-15-2022 RBC (Bld) [#/Vol] 4.61 10*6/uL 4.6-6.2 [facility] Blood hemoglobin measurement (mass/volume)Ordered By: Dr. Ventura on 05-15-2022 Hemoglobin (Bld) [Mass/Vol] 14.6 g/dL 13.0-16.5 [facility] Blood lymphocytes/100 leukoc ytesOrdered By: Dr. Ventura on 05-15-2022 Lymphocytes/100 WBC (Bld) 55.2 % 19-41 [facility] Blood manual differential co mment interpretation (narrative result)Ordered By: Dr. Ventura on 05-15-2022 Manual differential comment Saleem (Bld) [Interp] COMMENT [facility] Comment on above: LYMPHOCYTOSIS Blood monocytes/100 leukocyt esOrdered By: Dr. Ventura on 05-15-2022 Monocytes/100 WBC (Bld) 7.8 % 0-10 [facility] Blood platelet mean volumeOr dered By: Dr. Ventura on 05-15-2022 Platelet mean volume (Bld) [Entitic vol] 11.1 fL 6.2-12.0 [facility] Determination of erythrocyte mean corpuscular volume (MCV)Ordered By: Dr. Ventura on 05-15-2022 MCV (RBC) [Entitic vol] 94.8 fL 80-94 [facility] Hematocrit Auto (Bld) [Volum e fraction]Ordered By: Dr. Ventura on 05-15-2022 Hematocrit (Bld) [Volume fraction] 43.7 % 40-54 [facility] Laboratory - Chemistry and C hemistry - challengeOrdered By: Dr. Ventura on 05-15-2022 CO2 [Moles/Vol] 24.0 mmol/L 21.0-32.0 [facility] Urea nitrogen/Creatinine [Mass ratio] 16.0 mg/mg 10-20 [facility] Laboratory - Hematology and Cell countsOrdered By: Dr. Ventura on 05-15-2022 Erythrocyte distribution width (RBC) [Entitic vol] 44.4 fL 35.1-43.9 [facility] Erythrocyte distribution width (RBC) [Ratio] 12.8 % 11.6-14.6 [facility] Immature granulocytes/100 WBC (Bld) 1.200 % 0.0-0.9 [facility] Comment on above: IG% - Immature Granu locytes (promyelocytes, myelocytes and metamyelocytes) > 1% indicates that a LEFT SHIFT is Present. MCH (RBC) [Entitic mass] 31.7 pg 27.0-32.0 [facility] Nucleated RBC/100 WBC (Bld) [Ratio] 0.4 % 0-5 [facility] MCHC Auto (RBC) [Mass/Vol]Or dered By: Dr. Ventura on 05-15-2022 MCHC (RBC) [Mass/Vol] 33.4 g/dL 32-36 [facility] No Panel InformationOrdered By: Dr. Ventura on 05-15-2022 Estimated GFR (MDRD) Amer 104 mL/min >60 [facility] Comment on above: GFR Calc Estimated GFR (MDRD) Non-Af Amer 86 mL/min >60 [facility] Comment on above: Non- GFR Calc Platelets bldOrdered By: Dr. Ventura on 05-15-2022 Platelets (Bld) [#/Vol] 252 10*3/uL 150-450 [facility] Serum or plasma C reactive p rotein measurement (mass/volume)Ordered By: Dr. Ventura on 05-15-2022 CRP [Mass/Vol] 16.10 mg/L 0.0-3.0 [facility] Comment on above: C-Reactive Protein ( CRP) provides useful information for thediagnosis, therapy and monitoring of inflammatory processesand associated diseases. For the evaluation of Relative Riskfor Cardiovascular Disease, a High Sensitivity CRP (HSCRP)should be ordered. Serum or plasma calcium michael urement (mass/volume)Ordered By: Dr. Ventura on 05-15-2022 Calcium [Mass/Vol] 9.2 mg/dL 8.5-10.1 [facility] Serum or plasma creatinine m easurement (mass/volume)Ordered By: Dr. Ventura on 05-15-2022 Creatinine [Mass/Vol] 0.94 mg/dL 0.70-1.30 [facility] Comment on above: The validity of the calculated GFR & GFRAA in patients over 70 years has not been determined. Clinical correlation is essential. Serum or plasma urea nitroge n measurement (mass/volume)Ordered By: Dr. Ventura on 05-15-2022 Urea nitrogen [Mass/Vol] 15 mg/dL 7-18 [facility] Thin prep Papanicolaou smear with manual screeningOrdered By: Dr. Ventura on 05-15-2022 Thin prep Papanicolaou smear with manual screening 9 5-15 [facility] Basophil percentageOrdered B y: Dr. Ventura on 05-01-2022 Bilirubin [Mass/Vol] 0.50 mg/dL 0.20-1.00 [facility] Comment on above: For patients on eltr ombopag therapy, use of Dimension [place] TBIL is not recommended. Chloride [Moles/Vol] 107 mmol/L 98-107 [facility] Glucose [Mass/Vol] 100 mg/dL 74-106 [facility] Comment on above: Fasting Glucose resu lt from 100 to 125 mg/dL suggests IMPAIRED HOMEOSTASIS per A.D.A. criteria. Potassium [Moles/Vol] 3.5 mmol/L 3.5-5.1 [facility] Protein [Mass/Vol] 6.9 g/dL 6.4-8.2 [facility] Sodium [Moles/Vol] 142 mmol/L 136-145 [facility] WBC (Bld) [#/Vol] 10.2 10*3/uL 4.4-11.0 [facility] Blood erythrocytes count (nu mber/volume)Ordered By: Dr. Ventura on 05-01-2022 RBC (Bld) [#/Vol] 4.66 10*6/uL 4.6-6.2 [facility] Blood hemoglobin measurement (mass/volume)Ordered By: Dr. Ventura on 05-01-2022 Hemoglobin (Bld) [Mass/Vol] 15.0 g/dL 13.0-16.5 [facility] Blood platelet mean volumeOr dered By: Dr. Ventura on 05-01-2022 Platelet mean volume (Bld) [Entitic vol] 11.5 fL 6.2-12.0 [facility] Determination of erythrocyte mean corpuscular volume (MCV)Ordered By: Dr. Ventura on 05-01-2022 MCV (RBC) [Entitic vol] 96.8 fL 80-94 [facility] Hematocrit Auto (Bld) [Volum e fraction]Ordered By: Dr. Ventura on 05-01-2022 Hematocrit (Bld) [Volume fraction] 45.1 % 40-54 [facility] Laboratory - Chemistry and C hemistry - challengeOrdered By: Dr. Ventura on 05-01-2022 ALP [Catalytic activity/Vol] 56 U/L 45-117 [facility] ALT [Catalytic activity/Vol] 35 U/L 16-61 [facility] CO2 [Moles/Vol] 24.0 mmol/L 21.0-32.0 [facility] Globulin (S) [Mass/Vol] 4.1 g/dL 2.2-4.2 [facility] Urea nitrogen/Creatinine [Mass ratio] 31.6 mg/mg 10-20 [facility] Laboratory - Hematology and Cell countsOrdered By: Dr. Ventura on 05-01-2022 Erythrocyte distribution width (RBC) [Entitic vol] 47.1 fL 35.1-43.9 [facility] Erythrocyte distribution width (RBC) [Ratio] 13.1 % 11.6-14.6 [facility] MCH (RBC) [Entitic mass] 32.2 pg 27.0-32.0 [facility] MCHC Auto (RBC) [Mass/Vol]Or dered By: Dr. Ventura on 05-01-2022 MCHC (RBC) [Mass/Vol] 33.3 g/dL 32-36 [facility] No Panel InformationOrdered By: Dr. Ventura on 05-01-2022 Estimated GFR (MDRD) Amer 102 mL/min >60 [facility] Comment on above: GFR Calc Estimated GFR (MDRD) Non-Af Amer 85 mL/min >60 [facility] Comment on above: Non- GFR Calc Platelets bldOrdered By: Dr. Ventura on 05-01-2022 Platelets (Bld) [#/Vol] 188 10*3/uL 150-450 [facility] Serum or plasma albumin michael urement (mass/volume)Ordered By: Dr. Ventura on 05-01-2022 Albumin [Mass/Vol] 2.8 g/dL 3.2-5.0 [facility] Serum or plasma albumin/glob ulin mass ratioOrdered By: Dr. Ventura on 05-01-2022 Albumin/Globulin [Mass ratio] 0.7 {ratio} 0.9-2.4 [facility] Serum or plasma calcium michael urement (mass/volume)Ordered By: Dr. Ventura on 05-01-2022 Calcium [Mass/Vol] 9.6 mg/dL 8.5-10.1 [facility] Serum or plasma creatinine m easurement (mass/volume)Ordered By: Dr. Ventura on 05-01-2022 Creatinine [Mass/Vol] 0.95 mg/dL 0.70-1.30 [facility] Comment on above: The validity of the calculated GFR & GFRAA in patients over 70 years has not been determined. Clinical correlation is essential. Serum or plasma urea nitroge n measurement (mass/volume)Ordered By: Dr. Ventura on 05-01-2022 Urea nitrogen [Mass/Vol] 30 mg/dL 7-18 [facility] Thin prep Papanicolaou smear with manual screeningOrdered By: Dr. Ventura on 05-01-2022 Thin prep Papanicolaou smear with manual screening 40 U/L 15-37 [facility] Thin prep Papanicolaou smear with manual screening 11 5-15 [facility] No Panel Informationon 11-11 Valproic Acid (Depakene) Level 138 ug/mL 50-100 [facility] Work Phone: Basophil percentageon 2021 Ammonia (P) [Moles/Vol] 44.0 umol/L 11-32 [facility] Work Phone: Bilirubin [Mass/Vol] 0.40 mg/dL 0.20-1.00 [facility] Work Phone: Comment on above: For patients on eltr ombopag therapy, use of Dim[employer] [place] TBIL is not recommended. Chloride [Moles/Vol] 108 mmol/L 98-107 [facility] Work Phone: Glucose [Mass/Vol] 77 mg/dL 74-106 [facility] Work Phone: Potassium [Moles/Vol] 4.4 mmol/L 3.5-5.1 [facility] Work Phone: Protein [Mass/Vol] 6.1 g/dL 6.4-8.2 [facility] Work Phone: Sodium [Moles/Vol] 139 mmol/L 136-145 [facility] Work Phone: WBC (Bld) [#/Vol] 9.8 10*3/uL 4.4-11.0 [facility] Work Phone: Blood erythrocytes count (nu mber/volume)on 10-26-2021 RBC (Bld) [#/Vol] 3.68 10*6/uL 4.6-6.2 [facility] Work Phone: Blood hemoglobin measurement (mass/volume)on 10-26-2021 Hemoglobin (Bld) [Mass/Vol] 12.2 g/dL 13.0-16.5 [facility] Work Phone: Blood platelet mean volumeon 10-26-2021 Platelet mean volume (Bld) [Entitic vol] 11.0 fL 6.2-12.0 [facility] Work Phone: Determination of erythrocyte mean corpuscular volume (MCV)on 10-26-2021 MCV (RBC) [Entitic vol] 99.5 fL 80-94 [facility] Work Phone: Hematocrit Auto (Bld) [Volum e fraction]on 10-26-2021 Hematocrit (Bld) [Volume fraction] 36.6 % 40-54 [facility] Work Phone: Laboratory - Chemistry and C hemistry - challengeon 10-26-2021 ALP [Catalytic activity/Vol] 54 U/L 45-117 [facility] Work Phone: ALT [Catalytic activity/Vol] 19 U/L 16-61 [facility] Work Phone: CO2 [Moles/Vol] 27.0 mmol/L 21.0-32.0 [facility] Work Phone: Globulin (S) [Mass/Vol] 3.5 g/dL 2.2-4.2 [facility] Work Phone: Urea nitrogen/Creatinine [Mass ratio] 18.9 mg/mg 10-20 [facility] Work Phone: Laboratory - Hematology and Cell countson 10-26-2021 Erythrocyte distribution width (RBC) [Entitic vol] 50.8 fL 35.1-43.9 [facility] Work Phone: Erythrocyte distribution width (RBC) [Ratio] 13.8 % 11.6-14.6 [facility] Work Phone: MCH (RBC) [Entitic mass] 33.2 pg 27.0-32.0 [facility] Work Phone: MCHC Auto (RBC) [Mass/Vol]on 10-26-2021 MCHC (RBC) [Mass/Vol] 33.3 g/dL 32-36 [facility] Work Phone: No Panel Informationon 10-26 Estimated GFR (MDRD) Amer 109 mL/min >60 [facility] Work Phone: Comment on above: GFR Calc Estimated GFR (MDRD) Non-Af Amer 90 mL/min >60 [facility] Work Phone: Comment on above: Non- GFR Calc Valproic Acid (Depakene) Level 121 ug/mL 50-100 [facility] Work Phone: Platelets bldon 10-26-2021 Platelets (Bld) [#/Vol] 165 10*3/uL 150-450 [facility] Work Phone: Serum or plasma albumin michael urement (mass/volume)on 10-26-2021 Albumin [Mass/Vol] 2.6 g/dL 3.2-5.0 [facility] Work Phone: Serum or plasma albumin/glob ulin mass ratioon 10-26-2021 Albumin/Globulin [Mass ratio] 0.7 {ratio} 0.9-2.4 [facility] Work Phone: Serum or plasma calcium michael urement (mass/volume)on 10-26-2021 Calcium [Mass/Vol] 9.6 mg/dL 8.5-10.1 [facility] Work Phone: Serum or plasma creatinine m easurement (mass/volume)on 10-26-2021 Creatinine [Mass/Vol] 0.90 mg/dL 0.70-1.30 [facility] Work Phone: Comment on above: The validity of the calculated GFR & GFRAA in patients over 70 years has not been determined. Clinical correlation is essential. Serum or plasma lamotrigine measurement (mass/volume)on 10-26-2021 lamoTRIgine [Mass/Vol] 8.4 ug/mL 2.0-20.0 [facility] Work Phone: Comment on above: Detection Limit = 1. 0Performed at: - [facility] [id number] Director: Keyona Rodriguez MD, Phone: [phone] Serum or plasma urea nitroge n measurement (mass/volume)on 10-26-2021 Urea nitrogen [Mass/Vol] 17 mg/dL 7-18 [facility] Work Phone: Thin prep Papanicolaou smear with manual screeningon 10-26-2021 Thin prep Papanicolaou smear with manual screening 21 U/L 15-37 [facility] Work Phone: Thin prep Papanicolaou smear with manual screening 4 5-15 [facility] Work Phone: Basophil percentageon 2021 Bilirubin [Mass/Vol] 0.40 mg/dL 0.20-1.00 [facility] Work Phone: Comment on above: For patients on eltr ombopag therapy, use of Dimension [place] TBIL is not recommended. Chloride [Moles/Vol] 106 mmol/L 98-107 [facility] Work Phone: Glucose [Mass/Vol] 76 mg/dL 74-106 [facility] Work Phone: Potassium [Moles/Vol] 4.1 mmol/L 3.5-5.1 [facility] Work Phone: Protein [Mass/Vol] 6.5 g/dL 6.4-8.2 [facility] Work Phone: Sodium [Moles/Vol] 136 mmol/L 136-145 [facility] Work Phone: WBC (Bld) [#/Vol] 8.2 10*3/uL 4.4-11.0 [facility] Work Phone: Blood erythrocytes count (nu mber/volume)on 07-27-2021 RBC (Bld) [#/Vol] 3.80 10*6/uL 4.6-6.2 [facility] Work Phone: Blood hemoglobin measurement (mass/volume)on 07-27-2021 Hemoglobin (Bld) [Mass/Vol] 12.4 g/dL 13.0-16.5 [facility] Work Phone: Blood platelet mean volumeon 07-27-2021 Platelet mean volume (Bld) [Entitic vol] 11.2 fL 6.2-12.0 [facility] Work Phone: Determination of erythrocyte mean corpuscular volume (MCV)on 07-27-2021 MCV (RBC) [Entitic vol] 95.8 fL 80-94 [facility] Work Phone: Hematocrit Auto (Bld) [Volum e fraction]on 07-27-2021 Hematocrit (Bld) [Volume fraction] 36.4 % 40-54 [facility] Work Phone: Iron measurement (mass/mass) on 07-27-2021 Iron (Unsp spec) [Mass/Mass] 121 ug/dL 65-175 [facility] Work Phone: Laboratory - Chemistry and C hemistry - challengeon 07-27-2021 ALP [Catalytic activity/Vol] 57 U/L 45-117 [facility] Work Phone: ALT [Catalytic activity/Vol] 16 U/L 16-61 [facility] Work Phone: CO2 [Moles/Vol] 25.0 mmol/L 21.0-32.0 [facility] Work Phone: Globulin (S) [Mass/Vol] 3.8 g/dL 2.2-4.2 [facility] Work Phone: Urea nitrogen/Creatinine [Mass ratio] 15.4 mg/mg 10-20 [facility] Work Phone: Laboratory - Hematology and Cell countson 07-27-2021 Erythrocyte distribution width (RBC) [Entitic vol] 50.5 fL 35.1-43.9 [facility] Work Phone: Erythrocyte distribution width (RBC) [Ratio] 14.3 % 11.6-14.6 [facility] Work Phone: MCH (RBC) [Entitic mass] 32.6 pg 27.0-32.0 [facility] Work Phone: MCHC Auto (RBC) [Mass/Vol]on 07-27-2021 MCHC (RBC) [Mass/Vol] 34.1 g/dL 32-36 [facility] Work Phone: No Panel Informationon 07-27 Estimated GFR (MDRD) Amer 107 mL/min >60 [facility] Work Phone: Comment on above: GFR Calc Estimated GFR (MDRD) Non-Af Amer 89 mL/min >60 [facility] Work Phone: Comment on above: Non- GFR Calc Platelets bldon 07-27-2021 Platelets (Bld) [#/Vol] 153 10*3/uL 150-450 [facility] Work Phone: Serum or plasma albumin michael urement (mass/volume)on 07-27-2021 Albumin [Mass/Vol] 2.7 g/dL 3.2-5.0 [facility] Work Phone: Serum or plasma albumin/glob ulin mass ratioon 07-27-2021 Albumin/Globulin [Mass ratio] 0.7 {ratio} 0.9-2.4 [facility] Work Phone: Serum or plasma calcium michael urement (mass/volume)on 07-27-2021 Calcium [Mass/Vol] 9.4 mg/dL 8.5-10.1 [facility] Work Phone: Serum or plasma creatinine m easurement (mass/volume)on 07-27-2021 Creatinine [Mass/Vol] 0.91 mg/dL 0.70-1.30 [facility] Work Phone: Comment on above: The validity of the calculated GFR & GFRAA in patients over 70 years has not been determined. Clinical correlation is essential. Serum or plasma ferritin narendra surement (mass/volume)on 07-27-2021 Ferritin [Mass/Vol] 425 ng/mL 26-388 [facility] Work Phone: Serum or plasma urea nitroge n measurement (mass/volume)on 07-27-2021 Urea nitrogen [Mass/Vol] 14 mg/dL 7-18 [facility] Work Phone: Thin prep Papanicolaou smear with manual screeningon 07-27-2021 Thin prep Papanicolaou smear with manual screening 21 U/L 15-37 [facility] Work Phone: Thin prep Papanicolaou smear with manual screening 5 5-15 [facility] Work Phone: Basophil percentageon 2021 Ammonia (P) [Moles/Vol] 52.0 umol/L 11-32 [facility] Work Phone: Basophil percentageon 2021 Chloride [Moles/Vol] 111 mmol/L 98-107 [facility] Work Phone: Glucose [Mass/Vol] 71 mg/dL 74-106 [facility] Work Phone: Potassium [Moles/Vol] 4.8 mmol/L 3.5-5.1 [facility] Work Phone: Comment on above: Moderate Hemolysis, Result may be falsely increased. Sodium [Moles/Vol] 141 mmol/L 136-145 [facility] Work Phone: WBC (Bld) [#/Vol] 7.3 10*3/uL 4.4-11.0 [facility] Work Phone: Blood erythrocytes count (nu mber/volume)on 05-23-2021 RBC (Bld) [#/Vol] 3.95 10*6/uL 4.6-6.2 [facility] Work [facility]: Blood hemoglobin measurement (mass/volume)on 05-23-2021 Hemoglobin (Bld) [Mass/Vol] 12.8 g/dL 13.0-16.5 [facility] Work Phone: Blood platelet mean volumeon 05-23-2021 Platelet mean volume (Bld) [Entitic vol] 11.0 fL 6.2-12.0 [facility] Work Phone: Determination of erythrocyte mean corpuscular volume (MCV)on 05-23-2021 MCV (RBC) [Entitic vol] 101.3 fL 80-94 [facility] Work Phone: Hematocrit Auto (Bld) [Volum e fraction]on 05-23-2021 Hematocrit (Bld) [Volume fraction] 40.0 % 40-54 [facility] Work Phone: Laboratory - Chemistry and C hemistry - challengeon 05-23-2021 CO2 [Moles/Vol] 27.0 mmol/L 21.0-32.0 [facility] Work Phone: Urea nitrogen/Creatinine [Mass ratio] 17.7 mg/mg 10-20 [facility] Work Phone: Laboratory - Hematology and Cell countson 05-23-2021 Erythrocyte distribution width (RBC) [Entitic vol] 53.4 fL 35.1-43.9 [facility] Work Phone: Erythrocyte distribution width (RBC) [Ratio] 14.3 % 11.6-14.6 [facility] Work Phone: MCH (RBC) [Entitic mass] 32.4 pg 27.0-32.0 [facility] Work Phone: MCHC Auto (RBC) [Mass/Vol]on 05-23-2021 MCHC (RBC) [Mass/Vol] 32.0 g/dL 32-36 [facility] Work Phone: No Panel Informationon 05-23 Estimated GFR (MDRD) Amer 101 mL/min >60 [facility] Work Phone: Comment on above: GFR Calc Estimated GFR (MDRD) Non-Af Amer 84 mL/min >60 [facility] Work Phone: Comment on above: Non- GFR Calc Platelets bldon 05-23-2021 Platelets (Bld) [#/Vol] 249 10*3/uL 150-450 [facility] Work Phone: Serum or plasma C reactive p rotein measurement (mass/volume)on 05-23-2021 CRP [Mass/Vol] 3.61 mg/L 0.0-3.0 [facility] Work Phone: Comment on above: C-Reactive Protein ( CRP) provides useful information for thediagnosis, therapy and monitoring of inflammatory processesand associated diseases. For the evaluation of Relative Riskfor Cardiovascular Disease, a High Sensitivity CRP (HSCRP)should be ordered. Serum or plasma calcium michael urement (mass/volume)on 05-23-2021 Calcium [Mass/Vol] 9.5 mg/dL 8.5-10.1 [facility] Work Phone: Serum or plasma creatinine m easurement (mass/volume)on 05-23-2021 Creatinine [Mass/Vol] 0.96 mg/dL 0.70-1.30 [facility] Work Phone: Comment on above: The validity of the calculated GFR & GFRAA in patients over 70 years has not been determined. Clinical correlation is essential. Serum or plasma urea nitroge n measurement (mass/volume)on 05-23-2021 Urea nitrogen [Mass/Vol] 17 mg/dL 7-18 [facility] Work Phone: Thin prep Papanicolaou smear with manual screeningon 05-23-2021 Thin prep Papanicolaou smear with manual screening 3 5-15 [facility] Work Phone: Absolute lymphocyte counton 05-16-2021 Lymphocytes Auto (Unsp spec) [#/Vol] 3.11 10*3/uL 0.83-4.51 [facility] Work Phone: Basophil percentageon 2021 Basophils/100 WBC (Bld) 0.9 % 0-1 [facility] Work Phone: Chloride [Moles/Vol] 109 mmol/L 98-107 [facility] Work Phone: Eosinophils/100 WBC (Bld) 1.9 % 0-5 [facility] Work Phone: Glucose [Mass/Vol] 82 mg/dL 74-106 [facility] Work Phone: Neutrophils (Bld) [#/Vol] 1.5 10*3/uL 2.0-7.7 [facility] Work Phone: Neutrophils/100 WBC (Bld) 28.6 % 47-70 [facility] Work Phone: Potassium [Moles/Vol] 4.0 mmol/L 3.5-5.1 [facility] Work Phone: Sodium [Moles/Vol] 144 mmol/L 136-145 [facility] Work Phone: WBC (Bld) [#/Vol] 5.3 10*3/uL 4.4-11.0 [facility] Work Phone: Blood erythrocytes count (nu mber/volume)on 05-16-2021 RBC (Bld) [#/Vol] 4.04 10*6/uL 4.6-6.2 [facility] Work Phone: Blood hemoglobin measurement (mass/volume)on 05-16-2021 Hemoglobin (Bld) [Mass/Vol] 13.1 g/dL 13.0-16.5 [facility] Work Phone: Blood lymphocytes/100 leukoc yteson 05-16-2021 Lymphocytes/100 WBC (Bld) 58.3 % 19-41 [facility] Work Phone: Blood monocytes/100 leukocyt eson 05-16-2021 Monocytes/100 WBC (Bld) 9.9 % 0-10 [facility] Work Phone: Blood platelet mean volumeon 05-16-2021 Platelet mean volume (Bld) [Entitic vol] 11.8 fL 6.2-12.0 [facility] Work Phone: Determination of erythrocyte mean corpuscular volume (MCV)on 05-16-2021 MCV (RBC) [Entitic vol] 98.5 fL 80-94 [facility] Work Phone: Hematocrit Auto (Bld) [Volum e fraction]on 05-16-2021 Hematocrit (Bld) [Volume fraction] 39.8 % 40-54 [facility] Work Phone: Laboratory - Chemistry and C hemistry - challengeon 05-16-2021 CO2 [Moles/Vol] 30.0 mmol/L 21.0-32.0 [facility] Work Phone: Urea nitrogen/Creatinine [Mass ratio] 19.6 mg/mg 10-20 [facility] Work Phone: Laboratory - Hematology and Cell countson 05-16-2021 Erythrocyte distribution width (RBC) [Entitic vol] 50.7 fL 35.1-43.9 [facility] Work Phone: Erythrocyte distribution width (RBC) [Ratio] 13.8 % 11.6-14.6 [facility] Work Phone: Immature granulocytes/100 WBC (Bld) 0.400 % 0.0-0.9 [facility] Work Phone: Comment on above: IG% - Immature Granu locytes (promyelocytes, myelocytes and metamyelocytes) > 1% indicates that a LEFT SHIFT is Present. MCH (RBC) [Entitic mass] 32.4 pg 27.0-32.0 [facility] Work Phone: Nucleated RBC/100 WBC (Bld) [Ratio] 0 % 0-5 [facility] Work Phone: MCHC Auto (RBC) [Mass/Vol]on 05-16-2021 MCHC (RBC) [Mass/Vol] 32.9 g/dL 32-36 [facility] Work Phone: No Panel Informationon 05-16 Estimated GFR (MDRD) Amer 142 mL/min >60 [facility] Work Phone: Comment on above: GFR Calc Estimated GFR (MDRD) Non-Af Amer 118 mL/min >60 [facility] Work Phone: Comment on above: Non- GFR Calc Platelets bldon 05-16-2021 Platelets (Bld) [#/Vol] 106 10*3/uL 150-450 [facility] Work Phone: Serum or plasma C reactive p rotein measurement (mass/volume)on 05-16-2021 CRP [Mass/Vol] 18.70 mg/L 0.0-3.0 [facility] Work Phone: Comment on above: C-Reactive Protein ( CRP) provides useful information for thediagnosis, therapy and monitoring of inflammatory processesand associated diseases. For the evaluation of Relative Riskfor Cardiovascular Disease, a High Sensitivity CRP (HSCRP)should be ordered. Serum or plasma calcium michael urement (mass/volume)on 05-16-2021 Calcium [Mass/Vol] 9.1 mg/dL 8.5-10.1 [facility] Work Phone: Serum or plasma creatinine m easurement (mass/volume)on 05-16-2021 Creatinine [Mass/Vol] 0.71 mg/dL 0.70-1.30 [facility] Work Phone: Comment on above: The validity of the calculated GFR & GFRAA in patients over 70 years has not been determined. Clinical correlation is essential. Serum or plasma urea nitroge n measurement (mass/volume)on 05-16-2021 Urea nitrogen [Mass/Vol] 14 mg/dL 18 [facility] Work Phone: Thin prep Papanicolaou smear with manual screeningon 05-16-2021 Thin prep Papanicolaou smear with manual screening 09-04 [facility] Work Phone: ANES Nely 10-27-2020 ANES POST HNO ID: [id number] Author: Haresh Rodriges MD Service: Anesthesiology Author [...] 27, 2020 TIME: 4:59 PM PAGER/CONTACT #: [phone] Normal [facility] HISTORY PHYSICALon HISTORY PHYSICAL HNO ID: [id number] Author: Wendy Cardoso MD Service: Gastroenterology Author [...] MAC Additional Comments: None Wendy Cardoso MD [facility] IR REMOVE CATH BILI DRAINon 10-27-2020 IR REMOVE CATH BILI DRAIN * * *Final Report* * * DATE OF EXAM: Oct 27 2020 2:26PM [facility] 2306 - IR REMOVE CATH BILI DRAIN [...] Pre-procedure Consent: Consent obtained with the legal food service sales representatives as documented by Dr. Lu. Medication reconciliation: [...] performed by the: attending radiologist, without an shampoo assistant. The attending radiologist performed the following procedural activities: Entire procedure IMPRESSION: REMOVAL OF THE BILIARY CATHETER UNDER FLUOROSCOPIC GUIDANCE PLAN: Endoscopic stent placement per Dr. Lu. ATTESTATION: Signer name: Marsha Gutierrez I attest that I was present for the entire procedure. I reviewed the stored images and agree with the report as written. Biometric Technician: PSCB Transcribe Date/Time: Oct 27 2020 2:56P Dictated by : MARSHA GUTIERREZ MD This examination was interpreted and the report reviewed and electronically signed by: MARSHA GUTIERREZ MD on Oct 27 2020 3:02PM EST Normal [facility] NURSING PROGon 10-27-2020 NURSING PROG HNO ID: [id number] Author: Danilo Orosco LPN Service: ? Author [...] Danilo Orosco LPN In Department[facility] (GASTPR[facility] -- JESUS SHAVER ([id number]) 1955 M Date Time Provider Department 10/20/20 VIDHI SANTOS During your visit today, we recorded the following information about you: Vidhi Santos RN 10/20/2020 3:05 PM Signed GI Pre-Procedure Spoke with patient: Spoke with Le group fitness assistant department head, patient is currently at their SNF facility ([facility]). Confirmed date scheduled and patient report time: Yes Procedure Planned:Endoscopic Retrograde CholangioPancreatography(E GIS CONSULTANT) with or without biopsy,stenting,dilation and/or treatment Is the patient on blood thinners?no Procedure Instructions given to patient: Yes, and they verbalized their understanding of instructions given Patient instructed to take prescribed preparation prior to procedure:Yes, and they verbalized their understanding of instructions given Patient instructed to have family/friend present for procedure? transport home:Patient/patient food service sales representatives was told that if they do not [...] area. Any barriers to Patient learning: Patient/Patient Portfolio Architect responded appropriately on phone. Type of instruction given: Verbal by telephone contact. INOCENCIO Davis stated "I'm not sure the patient will [...] that she would call over to the [facility] to update them on procedure information but she is unsure if patient will make it to appointment. Informed by Le that she has been receiving updates on patient and that he has been steadily declining. Le states "Patient is jaundiced and has stage 4 kidney issues". She also states physician has been discussing hospice so she requested to take our phone number so they can adjust or cancel procedure if needed. Provided Q3 number if needed to update appointment. Allergies As of Date: 10/20/2020 Noted Allergy Reaction KEPPRA (LEVETIRACETAM) 05/14/2015 14 - Other: See Comments Comments: Increased seizures VICKS VAPORUB ([id number]*2015 2 - Rash Date Reviewed: 09/13/2020 Reviewed [...] Status:Closed by VIDHI SANTOS on 10/20/20 Normal [facility] Office Visit (Urology)on Follow-up visit Diagnoses/Problems Assessed [...] Capsule Vitals Vital Signs Recorded: 06Oct2020 09:32AM [id number] [id number] lb Tobacco Useb) No Fall Screeninga) No falls within the last year Physical Exam A/O x 3 in No apparent distress Constitutional:Jaundice Respiratory: Respiratory effort is normal Gastrointestinal:Abdomen is not tender Genitourinary: Kidneys: Not palpable Bilaterally Bladder: Not palpable or tender Signatures Electronically signed by : Ari Valles II, MD; Oct 06 2020 9:37AM EST (Author) Normal L-3 [facility] 09-29-2020 [facility] Telephone (GASTMN) -- JESUS SHAVER ([id number]) 1955 M Date Time Provider Department 09/29/20 ADRIEN LUWA During your visit today, we recorded the [...] pull the drain. Adrien Lu MD July [facility] 10/12/2020 3:16 PM Signed Please have your [facility]ul[facility] They were not aware of 10/13 with Vladic being canceled and rescheduled with you for 10/27. Can you have your branch retail executive call [phone] to speak with Anastacia Nurse for patient [...] See Comments Comments: Increased seizures VICKS VAPORUB ([id number]-[id number]*2015 2 - Rash Date Reviewed: 09/13/2020 Reviewed by: Kolton Grayson RN - Fully Assessed Reason for Visit: Appointment [186] Cmt: ERCP in next 2-[address] Lu Primary Visit Diagnosis:Calculus of bile duct without cholecystitis and without obstruction [K80.50] Order(s):ERCP GEN ANES [[id number]] Order #: [id number] FUTURE Prescriptions as of 09/29/2020 Sig: CERTAVITE-ANTIOXIDANT [...] Encounter Status:Closed by ADRIEN LU on 10/12/20 [facility] CNOVon 09-28-2020 CNOV Office Visit (GGENMN ) -- JESUS SHAVER ([id number]) 1955 M Date Time Provider Department 09/28/20 [...] down slightly and was discharged. Note from [facility] Emergency Department to Hospital Admission 08/28/2020 [...] ERCP - 09/01/2020 Findings: ? ? 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 The scope was advanced [...] Latest R (more content not included)... Normal [facility] CNPMariela 09-27-2020 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 Allergies As of Date: 09/27/2020 Noted Allergy Reaction KEPPRA (LEVETIRACETAM) 05/14/2015 14 - Other: See Comments Comments: Increased seizures VICKS VAPORUB ([id number]-[id number]*2015 2 - Rash Date Reviewed: 09/13/2020 Reviewed [...] by FREDIS CUNNINGHAM LPN on 09/27/20 Normal [facility] CNCOon 09-14-2020 CNCO Letter Text Normal [facility] CBC and Differentialon 09-13 Abs Baso 0.00 k/uL Normal <0.11 [facility] Abs Ada 0.93 k/uL High <0.87 [facility] Abs Neut 5.65 k/uL Normal 1.45-7.50 [facility] ANC(includeSEG+BAND) 5.65 k/uL Normal [facility] Anisocytosis Ql (Bld) Present Normal [facility] Basophils/100 WBC (Bld) 0.0 % Normal [facility] DTYPE Manual Diff Normal [facility] Eosinophils (Bld) [#/Vol] 0.10 10*3/uL Normal <0.46 [facility] Eosinophils/100 WBC (Bld) 1.0 % Normal [facility] Erythrocyte distribution width (RBC) [Ratio] 24.6 % High 11.5-15.0 [facility] Hematocrit (Bld) [Volume fraction] 24.6 % Low 39.0-51.0 [facility] Hemoglobin (Bld) [Mass/Vol] 8.4 g/dL Low 13.0-17.0 [facility] Left Shift Present Normal [facility] Lymphocytes (Bld) [#/Vol] 2.88 10*3/uL Normal 1.00-4.00 [facility] Lymphocytes/100 WBC (Bld) 28.0 % Normal [facility] MCH 33.7 pG Normal 26.0-34.0 [facility] MCHC (RBC) [Mass/Vol] 34.1 g/dL Normal 30.5-36.0 [facility] MCV (RBC) [Entitic vol] 98.8 fL Normal 80.0-100.0 [facility] Metamyelocytes/100 WBC (Bld) 2.0 % Normal [facility] Monocytes/100 WBC (Bld) 9.0 % Normal [facility] Myelo% 5.0 % Normal [facility] Neutrophils/100 WBC (Bld) 55.0 % Normal [facility] Platelet Estimate Platelet estimate decreased Normal [facility] Platelet mean volume (Bld) [Entitic vol] 13.6 fL High 9.0-12.7 [facility] Platelets (Bld) [#/Vol] 119 10*3/uL Low 150-400 [facility] Comment on above: Result Comment: Jeanmarie le checked for a clot. Polychromasia Slight Normal [facility] RBC (Bld) [#/Vol] 2.49 10*6/uL Low 4.20-6.00 [facility] Target Cells Moderate Normal [facility] WBC (Bld) [#/Vol] 10.28 10*3/uL Normal 3.70-11.00 [facility] CNDSon 09-13-2020 CNDS HNO ID: [id number] Author: Monique Mercedes MD Service: Hospital Medicine [...] Consulting: Frandy Dela Cruz MD Primary Service: [place] [id number] Consulting: Mercy Monson MD Consulting: Adam Caal [...] admitted from senior care and transferred from [facility] for obstructive jaundice. Patient had hepatitis and [...] PATIENT CONDITION AT DISCHARGE: Fair DISCHARGE DISPOSITION: Intermediate Facility {PHYSICAL EXAM General awake, confused, jaundiced HEENT atraumatic/normocephalic, scleral icterus Neck Soft supple, no (more content not included)... Normal [facility] Comp Metabolic Panelon 09-13 Albumin [Mass/Vol] 2.5 g/dL Low 3.9-4.9 [facility] ALP [Catalytic activity/Vol] 201 U/L High 38-113 [facility] [facility] ALT [Catalytic activity/Vol] 43 U/L Normal 10-54 [facility] Anion gap [Moles/Vol] 10 mmol/L Normal 9-18 [facility] AST [Catalytic activity/Vol] 89 U/L High 14-40 [facility] Bilirubin [Mass/Vol] 11.1 mg/dL High 0.2-1.3 [facility] Calcium [Mass/Vol] 9.6 mg/dL Normal 8.5-10.2 [facility] Chloride [Moles/Vol] 113 mmol/L High 97-105 [facility] CO2 [Moles/Vol] 23 mmol/L Normal 22-33 [facility] Creatinine [Mass/Vol] 0.88 mg/dL Normal 0.73-1.22 [facility] eGFR- Amer. >60 Normal [facility] eGFR-All Other Races >60 Normal [facility] Comment on above: Result Comment: eGFR [...] GFR. Glucose [Mass/Vol] 72 mg/dL Low 74-99 [facility] Potassium [Moles/Vol] 4.1 mmol/L Normal 3.7-5.1 [facility] Protein [Mass/Vol] 5.2 g/dL Low 6.3-8.0 [facility] Sodium [Moles/Vol] 146 mmol/L High 136-144 [facility] Urea nitrogen [Mass/Vol] 28 mg/dL High 9-24 [facility] Magnesiumon 09-13-2020 Magnesium [Mass/Vol] 2.3 mg/dL Normal 1.7-2.3 [facility] NURSING PROGon 09-13-2020 NURSING PROG HNO ID: [id number] Author: Kolton Grayson RN Service: ASSESSMENT Author Type: Registered Nurse Type: Nursing Progress Note Filed: 09/13/2020 2:12 PM Note Text: Nursing Progress Note Patient Name: Jesus Shaver Patient Location: [place] [address] [address] Daily Note:pt is awake with baseline orientation [...] d/c and report called into [facility] at [phone]. This note was completed by: Kolton Grayson [facility] Phosphoruson 09-13-2020 Phosphate [Mass/Vol] 2.6 mg/dL Low 2.7-4.8 [facility] Protimeon 09-13-2020 PT INR 1.1 Normal 0.9-1.3 [facility] Comment on above: Result Comment: Rocio min K Antagonist (VKA) Therapeutic Range: INR 2 to 3 (Target INR of 2.5) Note: For patients treated with VKA drugs, such as warfarin, the [employer] 2012 Guideline recommends [...] Chest 2012, 141:7S-47S Jermaine RA, et al. [facility] 2017, 70: 252-289 PT Sec 11.8 sec Normal 9.7-13.0 [facility] CBC and Differentialon 09-12 Abs Baso 0.12 k/uL High <0.11 [facility] Abs Ada 1.69 k/uL High <0.87 [facility] Abs Neut 7.37 k/uL Normal 1.45-7.50 [facility] ANC(includeSEG+BAND) 7.37 k/uL Normal [facility] Anisocytosis Ql (Bld) Present Normal [facility] Basophils/100 WBC (Bld) 1.0 % Normal [facility] DTYPE Manual Diff Normal [facility] Eosinophils (Bld) [#/Vol] 0.12 10*3/uL Normal <0.46 [facility] Eosinophils/100 WBC (Bld) 1.0 % Normal [facility] Erythrocyte distribution width (RBC) [Ratio] 24.1 % High 11.5-15.0 [facility] Hematocrit (Bld) [Volume fraction] 25.9 % Low 39.0-51.0 [facility] Hemoglobin (Bld) [Mass/Vol] 8.9 g/dL Low 13.0-17.0 [facility] Left Shift Present Normal [facility] Lymphocytes (Bld) [#/Vol] 2.18 10*3/uL Normal 1.00-4.00 [facility] Lymphocytes/100 WBC (Bld) 18.0 % Normal [facility] MCH 33.5 pG Normal 26.0-34.0 [facility] MCHC (RBC) [Mass/Vol] 34.4 g/dL Normal 30.5-36.0 [facility] MCV (RBC) [Entitic vol] 97.4 fL Normal 80.0-100.0 [facility] Metamyelocytes/100 WBC (Bld) 3.0 % Normal [facility] Monocytes/100 WBC (Bld) 14.0 % Normal [facility] Myelo% 2.0 % Normal [facility] Neutrophils/100 WBC (Bld) 61.0 % Normal [facility] Platelet Estimate Platelet estimate decreased Normal [facility] Platelet mean volume (Bld) [Entitic vol] 12.5 fL Normal 9.0-12.7 [facility] Platelets (Bld) [#/Vol] 96 10*3/uL Low 150-400 [facility] Comment on above: Result Comment: Samp le checked for a clot. Polychromasia Slight Normal [facility] RBC (Bld) [#/Vol] 2.66 10*6/uL Low 4.20-6.00 [facility] RBC Fragments Few Normal [facility] Target Cells Few Normal [facility] WBC (Bld) [#/Vol] 12.09 10*3/uL High 3.70-11.00 [facility] Comp Metabolic Panelon 09-12 Albumin [Mass/Vol] 2.2 g/dL Low 3.9-4.9 [facility] Albumin [Mass/Vol] 2.3 g/dL Low 3.9-4.9 [facility] ALP [Catalytic activity/Vol] 193 U/L High 38-113 [facility] ALP [Catalytic activity/Vol] 190 U/L High 38-113 [facility] ALT [Catalytic activity/Vol] 40 U/L Normal 10-54 [facility] Anion gap [Moles/Vol] 10 mmol/L Normal 9-18 [facility] AST [Catalytic activity/Vol] 82 U/L High 14-40 [facility] AST [Catalytic activity/Vol] 79 U/L High 14-40 [facility] Bilirubin [Mass/Vol] 11.4 mg/dL High 0.2-1.3 [facility] Bilirubin [Mass/Vol] 11.2 mg/dL High 0.2-1.3 [facility] Calcium [Mass/Vol] 9.3 mg/dL Normal 8.5-10.2 [facility] Chloride [Moles/Vol] 111 mmol/L High 97-105 [facility] CO2 [Moles/Vol] 22 mmol/L Normal 22-33 [facility] Creatinine [Mass/Vol] 0.75 mg/dL Normal 0.73-1.22 [facility] Creatinine [Mass/Vol] 0.74 mg/dL Normal 0.73-1.22 [facility] eGFR- Amer. >60 Normal [facility] eGFR-All Other Races >60 Normal [facility] Comment on above: Result Comment: eGFR [...] GFR. Glucose [Mass/Vol] 76 mg/dL Normal 74-99 [facility] Glucose [Mass/Vol] 74 mg/dL Normal 74-99 [facility] Potassium [Moles/Vol] 3.6 mmol/L Low 3.7-5.1 [facility] Potassium [Moles/Vol] 3.7 mmol/L Normal 3.7-5.1 [facility] Protein [Mass/Vol] 5.1 g/dL Low 6.3-8.0 [facility] Protein [Mass/Vol] 5.0 g/dL Low 6.3-8.0 [facility] Sodium [Moles/Vol] 143 mmol/L Normal 136-144 [facility] Urea nitrogen [Mass/Vol] 27 mg/dL High 9-24 [facility] Urea nitrogen [Mass/Vol] 28 mg/dL High - [facility] Magnesiumon 09-12-2020 Magnesium [Mass/Vol] 2.3 mg/dL Normal 1.7-2.3 [facility] NURSING PROGon 09-12-2020 NURSING PROG HNO ID: [id number] Author: Zulay Bishop RN Service: Nursing Author Type: Registered Nurse Type: Nursing Progress Note Filed: 09/13/2020 7:39 AM Note Text: Nursing Progress Note Patient Name: Jesus Shaver Patient Location: [place] [address] [address] Daily Note: 2000: Assessment as charted. Pt denies pain at this time. Lung sounds diminished. Abdomen soft, nontender, bowel sounds present. R bili drain patent, draining bile. Condom cath present, draining danilo brown fluid. IV capped. Call light within reach, bed alarm on. This note was completed by: Zulay Bishop [facility] NURSING PROG HNO ID: [id number] Author: Anitra Reno RN Service: ? Author Type: Registered Nurse Type: Nursing Progress Note Filed: 09/12/2020 6:11 PM Note Text: Nursing Progress Note Patient Name: Jesus Shaver Patient Location: [facility]-1 Daily Note: 0657: pt is resting in [...] note was completed by: Anitra Reno Normal [facility] Phosphoruson 09-12-2020 Phosphate [Mass/Vol] 2.3 mg/dL Low 2.7-4.8 [facility] Protimeon 09-12-2020 PT INR 1.1 Normal 0.9-1.3 [facility] Comment on above: Result Comment: Rocio min K Antagonist (VKA) Therapeutic Range: INR 2 to 3 (Target INR of 2.5) Note: For patients treated with VKA drugs, such as warfarin, the [employer] 2012 Guideline recommends [...] Chest 2012, 141:7S-47S Jermaine RA, et al. [facility] 2017, 70: 252-289 PT Sec 11.5 sec Normal 9.7-13.0 [facility] Comp Metabolic Panelon 09-11 Albumin [Mass/Vol] 2.4 g/dL Low 3.9-4.9 [facility] ALP [Catalytic activity/Vol] 212 U/L High 38-113 [facility] ALT [Catalytic activity/Vol] 37 U/L Normal 10-54 [facility] Anion gap [Moles/Vol] 10 mmol/L Normal 9-18 [facility] AST [Catalytic activity/Vol] 73 U/L High 14-40 [facility] Bilirubin [Mass/Vol] 12.1 mg/dL High 0.2-1.3 [facility] Calcium [Mass/Vol] 9.7 mg/dL Normal 8.5-10.2 [facility] Chloride [Moles/Vol] 110 mmol/L High 97-105 [facility] CO2 [Moles/Vol] 24 mmol/L Normal 22-33 [facility] Creatinine [Mass/Vol] 0.79 mg/dL Normal 0.73-1.22 [facility] eGFR- Amer. >60 Normal [facility] eGFR-All Other Races >60 Normal [facility] Comment on above: Result Comment: eGFR [...] GFR. Glucose [Mass/Vol] 99 mg/dL Normal 74-99 [facility] Potassium [Moles/Vol] 3.9 mmol/L Normal 3.7-5.1 [facility] Protein [Mass/Vol] 5.4 g/dL Low 6.3-8.0 [facility] Sodium [Moles/Vol] 144 mmol/L Normal 136-144 [facility] Urea nitrogen [Mass/Vol] 32 mg/dL High 9-24 [facility] Magnesiumon 09-11-2020 Magnesium [Mass/Vol] 2.5 mg/dL High 1.7-2.3 [facility] NURSING PROGon 09-11-2020 NURSING PROG HNO ID: [id number] Author: Zulay Bishop RN Service: Nursing Author Type: Registered Nurse Type: Nursing Progress Note Filed: 09/12/2020 7:54 AM Note Text: Nursing Progress Note Patient Name: Jesus Shaver Patient Location: [facility]1 Daily Note: 2124: Assessment as charted. Pt denies pain at this time. Lung sounds diminished. Abdomen soft, bowel sounds present. R bili drain patent, draining bile. Condom cath present, draining danilo brown fluid. IV fluids infusing per order. Call light within reach, bed alarm on. This note was completed by: Zulay Bishop [facility] NURSING PROG HNO ID: [id number] Author: Kolton Grayson RN Service: ASSESSMENT Author Type: Registered Nurse Type: Nursing Progress Note Filed: 09/11/2020 6:34 PM Note Text: Nursing Progress Note Patient Name: Jesus Shaver Patient Location: [facility] Daily Note:pt awake and alert to self [...] This note was completed by: Kolton Grayson [facility] NURSING PROG HNO ID: [id number] Author: Elzbieta Le RN Service: ? Author Type: Registered Nurse Type: Nursing Progress Note Filed: 09/11/2020 12:45 AM Note Text: Nursing Progress Note Patient Name: Jesus Shaver Patient Location: [place] [address] Daily Note: 1999 Patient assessment completed as [...] This note was completed by: Elzbieta Le [facility] Phosphoruson 09-11-2020 Phosphate [Mass/Vol] 2.3 mg/dL Low 2.7-4.8 [facility] Protimeon 09-11-2020 PT INR 1.1 Normal 0.9-1.3 [facility] Comment on above: Result Comment: Rocio min K Antagonist (VKA) Therapeutic Range: INR 2 to 3 (Target INR of 2.5) Note: For patients treated with VKA drugs, such as warfarin, the [employer] 2012 Guideline recommends [...] GH, et al. Chest 2012, 141:7S-47S Jermaine TIRADO et al. [facility] 2017, 70: 252-289 PT Sec 11.4 sec Normal 9.7-13.0 [facility] CASE MANAGEMon 09-10-2020 CASE MANAGEM HNO ID: [id number] Author: EZE Del Rio Service: Social Work Author Type: Associate Professor Of Management Type: Care Mgt Progress Note Filed: 09/10/2020 3:51 PM Note Text: CARE MANAGEMENT PROGRESS NOTE SERVICE DATE: 09/10/2020 SERVICE TIME: 3:43 PM LOS: 13 days Needs Prior to Discharge: Other: See Comment;Discharge Transportation (Medical clearance) SW continuing to follow for support and d/c planning. Everything is set for patient to d/c to [facility] at hospital d/c. Patient will need stretcher transport. Await medical clearance. [phone] [facility] emergency medical number [phone] [facility] [phone] SIGNATURE: EZE Del Rio PATIENT NAME: Jesus Shaver DATE: September 10, 2020 TIME: 3:43 PM PAGER/CONTACT #: [phone] Normal [facility] CBC and Differentialon 09-10 Abs Baso 0.14 k/uL High <0.11 [facility] Abs Ada 3.00 k/uL High <0.87 [facility] Abs Neut 7.36 k/uL Normal 1.45-7.50 [facility] ANC(includeSEG+BAND) 7.36 k/uL Normal [facility] Anisocytosis Ql (Bld) Present Normal [facility] Basophils/100 WBC (Bld) 1.0 % Normal [facility] DTYPE Manual Diff Normal [facility] Eosinophils (Bld) [#/Vol] 0.00 10*3/uL Normal <0.46 [facility] Eosinophils/100 WBC (Bld) 0.0 % [facility] Erythrocyte distribution width (RBC) [Ratio] 23.0 % High 11.5-15.0 [facility] Hematocrit (Bld) [Volume fraction] 24.0 % Low 39.0-51.0 [facility] Hemoglobin (Bld) [Mass/Vol] 8.4 g/dL Low 13.0-17.0 [facility] Left Shift Present Normal [facility] Lymphocytes (Bld) [#/Vol] 2.04 10*3/uL Normal 1.00-4.00 [facility] Lymphocytes/100 WBC (Bld) 15.0 % Normal [facility] MCH 33.6 pG Normal 26.0-34.0 [facility] MCHC (RBC) [Mass/Vol] 35.0 g/dL Normal 30.5-36.0 [facility] MCV (RBC) [Entitic vol] 96.0 fL Normal 80.0-100.0 [facility] Metamyelocytes/100 WBC (Bld) 4.0 % Normal [facility] Monocytes/100 WBC (Bld) 22.0 % Normal [facility] Myelo% 4.0 % Normal [facility] Neutrophils/100 WBC (Bld) 54.0 % Normal [facility] Platelet Estimate Platelet estimate decreased Normal [facility] Platelet mean volume (Bld) [Entitic vol] 12.3 fL Normal 9.0-12.7 [facility] Platelets (Bld) [#/Vol] 83 10*3/uL Low 150-400 [facility] Comment on above: Result [facility]. Polychromasia Slight Normal [facility] RBC (Bld) [#/Vol] 2.50 10*6/uL Low 4.20-6.00 [facility] Spherocytes Few Normal [facility] Target Cells Moderate Normal [facility] WBC (Bld) [#/Vol] 13.63 10*3/uL High 3.70-11.00 [facility] Comp Metabolic Panelon 09-10 Albumin [Mass/Vol] 2.3 g/dL Low 3.9-4.9 [facility] ALP [Catalytic activity/Vol] 246 U/L High 38-113 [facility] ALT [Catalytic activity/Vol] 38 U/L Normal 10-54 [facility] Anion gap [Moles/Vol] 11 mmol/L Normal 9-18 [facility] AST [Catalytic activity/Vol] 73 U/L High 14-40 [facility] Bilirubin [Mass/Vol] 13.3 mg/dL High 0.2-1.3 [facility] Calcium [Mass/Vol] 9.5 mg/dL Normal 8.5-10.2 [facility] Chloride [Moles/Vol] 108 mmol/L High 97-105 [facility] CO2 [Moles/Vol] 22 mmol/L Normal 22-33 [facility] Creatinine [Mass/Vol] 0.94 mg/dL Normal 0.73-1.22 [facility] Comment on above: Result Comment: Resu lt may be falsely decreased due to icteric interference. eGFR- Amer. >60 Normal [facility] eGFR-All Other Races >60 Normal [facility] Comment on above: Result Comment: eGFR [...] GFR. Glucose [Mass/Vol] 109 mg/dL High 74-99 [facility] Potassium [Moles/Vol] 4.2 mmol/L Normal 3.7-5.1 [facility] Protein [Mass/Vol] 5.7 g/dL Low 6.3-8.0 [facility] Sodium [Moles/Vol] 141 mmol/L Normal 136-144 [facility] Urea nitrogen [Mass/Vol] 31 mg/dL High 9-24 [facility] Magnesiumon 09-10-2020 Magnesium [Mass/Vol] 2.6 mg/dL High 1.7-2.3 [facility] NURSING PROGon 09-10-2020 NURSING PROG HNO ID: [id number] Author: Kolton Grayson RN Service: ASSESSMENT Author Type: Registered Nurse Type: Nursing Progress Note Filed: 09/10/2020 6:31 PM Note Text: Nursing Progress Note Patient Name: Jesus Shaver Patient Location: [facility]-1 Daily Note:assumed care of pt. 1829 pt [...] This note was completed by: Kolton Grayson [facility] NURSING PROG HNO ID: [id number] Author: Elzbieta Gonsales, RN Service: ? Author Type: Registered Nurse Type: Nursing Progress Note Filed: 09/10/2020 9:56 AM Note Text: Nursing Progress Note Patient Name: Jesus Shaver Patient Location: [facility] Daily Note: 0700 assumed care of pt, [...] This note was completed by: Elzbieta Gonsales [facility] Phosphoruson 09-10-2020 Phosphate [Mass/Vol] 2.6 mg/dL Low 2.7-4.8 [facility] Protimeon 09-10-2020 PT INR 1.2 Normal 0.9-1.3 [facility] Comment on above: Result Comment: Rocio min K Antagonist (VKA) Therapeutic Range: INR 2 to 3 (Target INR of 2.5) Note: For patients treated with VKA drugs, such as warfarin, the [employer] 2012 Guideline recommends [...] Chest 2012, 141:7S-47S Jermaine RA, et al. [facility] 2017, 70: 252-289 PT Sec 12.5 sec Normal 9.7-13.0 [facility] 09-09-2020 [facility] HNO ID: [id number] Author: CHARBEL Gonzalez Service: Radiology Author Type: Lot Worker Type: Allied Health Filed: 09/09/2020 5:08 PM [...] DATE: September 09, 2020 TIME: 5:07 PM [facility] HNO ID: [id number] Author: Nikky Simpson Service: Radiology Author Type: Lot Worker Type: Allied Health Filed: 09/09/2020 10:52 AM Note Text: RADIOLOGY SERVICE PROGRESS NOTE DATE OF SERVICE: September 09, 2020 TIME OF SERVICE: 1040 EVENT: Patient became very combative, trying to climb off CT table while attempting CT abd/pel. Patient verbalized not wanting scan multiple times. A chemicals fermentation operator image was take and had to end exam(nonbillable) for that 1 image to be dictated. If scan is to be done at a later date will need new order placed. RN was notified. ADDITIONAL EVENT DETAILS: SIGNATURE: Nikky Simpson PATIENT NAME: Jesus Shaver DATE: September 09, 2020 TIME: 10:50 AM PAGER/CONTACT #: [facility] HNO ID: [id number] Author: Razia Green, PharmD Service: ? Author Type: Pharmacist Type: [...] clinical status. Razia Green, PharmD Pharmacy extension [phone] [facility] Blood Cultureon 09-09-2020 Bacteria identified Cx Nom (Bld) Culture Result - No growth 5 days [facility] Comment on above: Performed By: #### B LCUL ####[facility] [id number] [place], [place] [phone] Bacteria identified Cx Nom (Bld) Culture Result - No growth 5 days [facility] Comment on above: Performed By: #### B LCUL ####[facility] [id number] [place], [place] [phone] CASE MANAGEMon 09-09-2020 CASE MANAGEM HNO ID: [id number] Author: EZE Del Rio Service: Social Work Author Type: Associate Professor Of Management Type: Care Mgt Progress Note Filed: 09/09/2020 2:23 PM Note Text: CARE MANAGEMENT PROGRESS NOTE SERVICE DATE: 09/09/2020 SERVICE TIME: 1:56 PM LOS: 12 days Needs Prior to Discharge: Precertification;Level of Care;Discharge Transportation ANI spoke with Mariam Meraz ([phone]) food service sales representatives from the [employer] who is assisting with placement for the patient as the paperwork that the facility requires has to be completed on their end. ANI notified by RN that patient is not ready for d/c today as WBC's are now elevated. SW canceled transport for today and has tentatively re scheduled it for tomorrow at 5 PM pending medical clearance and facility has necessary paperwork. SIGNATURE: EZE Del Rio PATIENT NAME: Jesus Shaver DATE: September 09, 2020 TIME: 1:56 PM PAGER/CONTACT #: [phone] Normal [facility] CBC and Differentialon 09-09 Abs Baso 0.00 k/uL Normal <0.11 [facility] Abs Ada 2.11 k/uL High <0.87 [facility] Abs Neut 10.24 k/uL High 1.45-7.50 [facility] ANC(includeSEG+BAND) 10.24 k/uL Normal [facility] Anisocytosis Ql (Bld) Present Normal [facility] Basophils/100 WBC (Bld) 0.0 % Normal [facility] DTYPE Manual Diff Normal [facility] Eosinophils (Bld) [#/Vol] 0.16 10*3/uL Normal <0.46 [facility] Eosinophils/100 WBC (Bld) 1.0 % Normal [facility] Erythrocyte distribution width (RBC) [Ratio] 22.4 % High 11.5-15.0 [facility] Hematocrit (Bld) [Volume fraction] 28.3 % Low 39.0-51.0 [facility] Hemoglobin (Bld) [Mass/Vol] 9.8 g/dL Low 13.0-17.0 [facility] Left Shift Present Normal [facility] Lymphocytes (Bld) [#/Vol] 2.93 10*3/uL Normal 1.00-4.00 [facility] Lymphocytes/100 WBC (Bld) 18.0 % Normal [facility] MCH 32.6 pG Normal 26.0-34.0 [facility] MCHC (RBC) [Mass/Vol] 34.6 g/dL Normal 30.5-36.0 [facility] MCV (RBC) [Entitic vol] 94.0 fL Normal 80.0-100.0 [facility] Metamyelocytes/100 WBC (Bld) 5.0 % Normal [facility] Monocytes/100 WBC (Bld) 13.0 % Normal [facility] Neutrophils/100 WBC (Bld) 63.0 % Normal [facility] Platelet Estimate Platelet estimate decreased Normal [facility] Platelet mean volume (Bld) [Entitic vol] 12.7 fL Normal 9.0-12.7 [facility] Platelets (Bld) [#/Vol] 103 10*3/uL Low 150-400 [facility] Polychromasia Slight Normal [facility] RBC (Bld) [#/Vol] 3.01 10*6/uL Low 4.20-6.00 [facility] RBC Fragments Few Normal [facility] Target Cells Moderate Normal [facility] WBC (Bld) [#/Vol] 16.26 10*3/uL High 3.70-11.00 [facility] CONSULTon 09-09-2020 CONSULT HNO ID: [id number] Author: Mercy Monson MD Service: Infectious Disease [...] once daily., Disp: 30 tablet, Rfl: 5 efqgwdh-yjkjpvdil-mraigiq D3 (OYSTER SHELL CALCIUM-VITAMIN D) 500 mg(1,250mg) [...] KEPPRA [LEVETIRACETAM] 05/14/2015 Other: See Comments JIGNA OLIVERA [[id number]-[id number]*2015 Rash Fully Assessed 02/21/2019 OBJECTIVE Patient Vitals for the past 24 hrs: BP Temp Temp src Pulse Resp SpO2 05/20/21 1008 (!) 98/43 ? ? (!) 58 [...] ?C (98. (more content not included)... Normal [facility] CT ABD/PEL W IVCONon 021 CT ABD/PEL W IVCON * * *Final Report* * * DATE OF EXAM: Sep 09 2020 5:08PM [facility] 0530 - CT ABD/PEL W IVCON / [...] appearing compression deformities of T12 and L3. Videogame Designer (topogram) images: Unremarkable. IMPRESSION: No acute findings [...] on Sep 09 2020 5:31PM EST [id number] [facility] CT ABD/PEL W IVCON * * *Final Report* * * DATE OF EXAM: Sep 09 2020 10:49AM [facility] 0530 - CT ABD/PEL W IVCON / PROCEDURE REASON: Infection, abdomen-pelvis * * * * Physician Interpretation * * * * RESULT: CANCELLED IMAGING EXAM COMMUNICATION RESULT See Impression IMPRESSION CANCELLED IMAGING EXAM COMMUNICATION The patient came to Imaging for CT ABD/PEL W IVCON. The exam could not be completed due to patient having difficulty lying still and tolerating this study. Videogame Designer topogram image was performed but the exam was stopped at that time. Bowel gas pattern on the topogram is nonspecific. Nursing staff was notified by sterile processing technologist. Exam can be re-ordered and performed when patient can tolerate. Transcribed Using Voice Recognition Transcribe Date/Time: Sep 09 2020 12:34P Dictated by: APRYL ZARCO MD This examination was interpreted and the report reviewed and electronically signed by: APRYL ZARCO MD on Sep 09 2020 12:41PM EST [id number] [facility] Comp Metabolic Panelon 09-09 Albumin [Mass/Vol] 2.4 g/dL Low 3.9-4.9 [facility] ALP [Catalytic activity/Vol] 246 U/L High 38-113 [facility] ALT [Catalytic activity/Vol] 40 U/L Normal 10-54 [facility] Anion gap [Moles/Vol] 12 mmol/L Normal 9-18 [facility] AST [Catalytic activity/Vol] 61 U/L High 14-40 [facility] Bilirubin [Mass/Vol] 11.7 mg/dL High 0.2-1.3 [facility] Calcium [Mass/Vol] 9.4 mg/dL Normal 8.5-10.2 [facility] Chloride [Moles/Vol] 105 mmol/L Normal 97-105 [facility] CO2 [Moles/Vol] 22 mmol/L Normal 22-33 [facility] Creatinine [Mass/Vol] 1.05 mg/dL Normal 0.73-1.22 [facility] eGFR- Amer. >60 [facility] [facility] eGFR-All Other Races >60 Normal [facility] Comment on above: Result Comment: eGFR [...] GFR. Glucose [Mass/Vol] 93 mg/dL Normal 74-99 [facility] Potassium [Moles/Vol] 3.8 mmol/L Normal 3.7-5.1 [facility] Protein [Mass/Vol] 5.4 g/dL Low 6.3-8.0 [facility] Sodium [Moles/Vol] 139 mmol/L Normal 136-144 [facility] Urea nitrogen [Mass/Vol] 33 mg/dL High 9-24 [facility] Lactateon 09-09-2020 Lactate [Moles/Vol] 1.9 mmol/L Normal 0.5-2.2 [facility] Magnesiumon 09-09-2020 Magnesium [Mass/Vol] 2.5 mg/dL High 1.7-2.3 [facility] NURSING PROGon 09-09-2020 NURSING PROG HNO ID: [id number] Author: Zulay Bishop RN Service: Nursing Author Type: Registered Nurse Type: Nursing Progress Note Filed: 09/10/2020 7:51 AM Note Text: Nursing Progress Note Patient Name: Jesus Shaver Patient Location: [facility] Daily Note: 2134: Assessment as charted. Pt denies pain at this time. Lung sounds diminished. Abdomen soft, bowel sounds present. R bili drain to gravity, draining bile. Condom cath present, draining danilo brown fluid. IV fluids infusing per order. Call light within reach, bed alarm on. This note was completed by: Zulay Bishop [facility] NURSING PROG HNO ID: [id number] Author: Cassidy Mg RN Service: ? Author Type: Registered Nurse Type: Nursing Progress Note Filed: 09/09/2020 11:27 AM Note Text: Nursing Progress Note Patient Name: Jesus Shaver Patient Location: [place] [address] Daily Note: 804 Assessment completed, BP [...] This note was completed by: Cassidy Mg [facility] NURSING PROG HNO ID: [id number] Author: Arely Davila RN Service: ? Author Type: Registered Nurse Type: Nursing Progress Note Filed: 09/09/2020 1:37 AM Note Text: Nursing Progress Note Patient Name: Jesus Shaver Patient Location: [place] [address]/[facility]-1 Daily Note: 2200: Pt assessment as charted, pt resting in bed, nighttime medications given whole with jello-pt tolerated well, denies any pain when asked, oriented to self only, repositioned for comfort-however pt yelling when trying to move him. SR on the monitor, condom cath remains intact draining to gravity bag, bed alarm on, will monitor. This note was completed by: Arely Davila [facility] Phosphoruson 09-09-2020 Phosphate [Mass/Vol] 3.4 mg/dL Normal 2.7-4.8 [facility] Protimeon 09-09-2020 PT INR 1.1 Normal 0.9-1.3 [facility] Comment on above: Result Comment: Rocio min K Antagonist (VKA) Therapeutic Range: INR 2 to 3 (Target INR of 2.5) Note: For patients treated with VKA drugs, such as warfarin, the [employer] 2012 Guideline recommends [...] BAJWA, et al. Chest 2012, 141:7S-47S Jermaine TIRADO, et al. [facility] 2017, 70: 252-289 PT Sec 11.9 sec Normal 9.7-13.0 [facility] CBC and Differentialon 09-08 Abs Baso 0.10 k/uL Normal <0.11 [facility] Abs Ada 0.90 k/uL High <0.87 [facility] Abs Neut 6.87 k/uL Normal 1.45-7.50 [facility] ANC(includeSEG+BAND) 6.87 k/uL Normal [facility] Anisocytosis Ql (Bld) Present Normal [facility] Basophils/100 WBC (Bld) 1.0 % Normal [facility] DTYPE Manual Diff Normal [facility] Eosinophils (Bld) [#/Vol] 0.20 10*3/uL Normal <0.46 [facility] Eosinophils/100 WBC (Bld) 2.0 % Normal [facility] Erythrocyte distribution width (RBC) [Ratio] 22.1 % High 11.5-15.0 [facility] Hematocrit (Bld) [Volume fraction] 29.6 % Low 39.0-51.0 [facility] Hemoglobin (Bld) [Mass/Vol] 10.2 g/dL Low 13.0-17.0 [facility] Left Shift Present Normal [facility] Lymphocytes (Bld) [#/Vol] 1.59 10*3/uL Normal 1.00-4.00 [facility] Lymphocytes/100 WBC (Bld) 16.0 % Normal [facility] MCH 33.1 pG Normal 26.0-34.0 [facility] MCHC (RBC) [Mass/Vol] 34.5 g/dL Normal 30.5-36.0 [facility] MCV (RBC) [Entitic vol] 96.1 fL Normal 80.0-100.0 [facility] Metamyelocytes/100 WBC (Bld) 1.0 % Normal [facility] Monocytes/100 WBC (Bld) 9.0 % Normal [facility] Myelo% 2.0 % Normal [facility] Neutrophils/100 WBC (Bld) 69.0 % Normal [facility] Platelet Estimate Platelet estimate decreased Normal [facility] Platelet mean volume (Bld) [Entitic vol] 11.9 fL Normal 9.0-12.7 [facility] Platelets (Bld) [#/Vol] 111 10*3/uL Low 150-400 [facility] RBC (Bld) [#/Vol] 3.08 10*6/uL Low 4.20-6.00 [facility] Target Cells Few Normal [facility] WBC (Bld) [#/Vol] 9.96 10*3/uL Normal 3.70-11.00 [facility] Comp Metabolic Panelon 09-08 Albumin [Mass/Vol] 2.8 g/dL Low 3.9-4.9 [facility] ALP [Catalytic activity/Vol] 313 U/L High 38-113 [facility] ALT [Catalytic activity/Vol] 52 U/L Normal 10-54 [facility] Anion gap [Moles/Vol] 9 mmol/L Normal 9-18 [facility] AST [Catalytic activity/Vol] 76 U/L High 14-40 [facility] Bilirubin [Mass/Vol] 10.4 mg/dL High 0.2-1.3 [facility] Calcium [Mass/Vol] 9.7 mg/dL Normal 8.5-10.2 [facility] Chloride [Moles/Vol] 102 mmol/L Normal 97-105 [facility] CO2 [Moles/Vol] 23 mmol/L Normal 22-33 [facility] Creatinine [Mass/Vol] 0.92 mg/dL Normal 0.73-1.22 [facility] eGFR- Amer. >60 Normal [facility] eGFR-All Other Races >60 Normal [facility] Comment on above: Result Comment: eGFR [...] GFR. Glucose [Mass/Vol] 88 mg/dL Normal 74-99 [facility] Potassium [Moles/Vol] 4.1 mmol/L Normal 3.7-5.1 [facility] Protein [Mass/Vol] 5.9 g/dL Low 6.3-8.0 [facility] Sodium [Moles/Vol] 134 mmol/L Low 136-144 [facility] Urea nitrogen [Mass/Vol] 26 mg/dL High 9-24 [facility] Coronavirus 2019on 1 SARS-CoV-2 (COVID-19) RNA AURY+probe Ql (Unsp spec) UPPER RESPIRATORY TRACT SWAB Normal [facility] Comment on above: Performed By: #### C OVID ####[facility] [id number] [place], [place] [id number] SARS-CoV-2 (COVID-19) RNA AURY+probe Ql (Unsp spec) Negative for COVID19 (SARS CoV2) by RT-PCR or equivalent method. Normal Negative for COVID19 (SARS CoV2) by RT-PCR or equivalent method. [facility] Comment on above: Result Comment: This test was developed and its performance characteristics determined by [facility]'s [facility] [place]. This test has been authorized by FDA under an Emergency Use Authorization (EUA). This test has been validated in accordance with the FDA's Guidance Document "Policy for Diagnostics Testing in Laboratories Certified to Perform High Complexity Testing under CLIA prior to Emergency use Authorization for Coronavirus Disease 2019 during the Public Health Emergency" issued on June 21, 2019. Test performed by [facility], [facility] [place], [address], [place] [address]. Performed By: #### C OVID ####[facility] [address] [place], [place] [id number] Magnesiumon 09-08-2020 Magnesium [Mass/Vol] 2.6 mg/dL High 1.7-2.3 [facility] NURSING PROGon 09-08-2020 NURSING PROG HNO ID: [id number] Author: Cassidy Mg RN Service: ? Author [...] This note was completed by: Cassidy Mg [facility] NURSING PROG HNO ID: [id number] Author: Luly Moore RN Service: Nursing Author [...] This note was completed by: Luly Moore [facility] NURSING PROG HNO ID: [id number] Author: Wily Ward RN Service: ? Author [...] note was completed by: Wily Ward Normal [facility] Phosphoruson 09-08-2020 Phosphate [Mass/Vol] 2.2 mg/dL Low 2.7-4.8 [facility] Protimeon 09-08-2020 PT INR 1.0 Normal 0.9-1.3 [facility] Comment on above: Result Comment: Rocio min K Antagonist (VKA) Therapeutic Range: INR 2 to 3 (Target INR of 2.5) Note: For patients treated with VKA drugs, such as warfarin, the [employer] 2012 Guideline recommends [...] Chest 2012, 141:7S-47S Jermaine RA, et al. [facility] 2017, 70: 252-289 PT Sec 11.2 sec Normal 9.7-13.0 [facility] CASE MANAGEMon 09-07-2020 CASE MANAGEM HNO ID: [id number] Author: EZE Del Rio Service: Social Work Author Type: Associate Professor Of Management Type: Care Mgt Progress Note Filed: 09/07/2020 4:32 PM Note Text: CARE MANAGEMENT PROGRESS NOTE SERVICE DATE: 09/07/2020 SERVICE TIME: 4:30 PM LOS: 10 days [place] of Choice Given: Yes Level of Care Discussed: Intermediate Facility Financial Disclosure Provided: Yes Financial Disclosure Comments: [facility] list provided Provider List: Intermediate Facility Provider list within the patient's requested geographic area shared with the patient/family: Yes within: 20 miles of zip code: [address] [facility] list emailed to [email or web address] @ [email or web address] SIGNATURE: EZE Del Rio PATIENT NAME: Jesus Shaver DATE: September 07, 2020 TIME: 4:29 PM PAGER/CONTACT #: [phone] [facility] CASE MANAGEM HNO ID: [id number] Author: EZE Del Rio Service: Social Work Author Type: Associate Professor Of Management Type: Care Mgt Progress Note Filed: 09/07/2020 [...] of facilities [place] [address] ([place], [place]). Guardian has had concerns raised about the care the patient was receiving in the senior care so she is in agreement with placement. ANI also spoke with Mariam Meraz @ [phone] from the Board of who is assisting with placement and requested a referral to [facility] where patient has been in the past. Referral placed. Await their review and determination. Above discussed with attending MD. SIGNATURE: EZE Del Rio PATIENT NAME: Jesus Shaver DATE: September 07, 2020 TIME: 4:15 PM PAGER/CONTACT #: [phone] Normal [facility] CBC and Differentialon 09-07 Abs Baso 0.00 k/uL Normal <0.11 [facility] Abs Ada 0.09 k/uL Normal <0.87 [facility] Abs Neut 5.71 k/uL Normal 1.45-7.50 [facility] ANC(includeSEG+BAND) 5.71 k/uL Normal [facility] Anisocytosis Ql (Bld) Present Normal [facility] Basophils/100 WBC (Bld) 0.0 % Normal [facility] DTYPE Manual Diff Normal [facility] Eosinophils (Bld) [#/Vol] 0.26 10*3/uL Normal <0.46 [facility] Eosinophils/100 WBC (Bld) 3.0 % Normal [facility] Erythrocyte distribution width (RBC) [Ratio] 21.2 % High 11.5-15.0 [facility] Hematocrit (Bld) [Volume fraction] 28.7 % Low 39.0-51.0 [facility] Hemoglobin (Bld) [Mass/Vol] 10.1 g/dL Low 13.0-17.0 [facility] Left Shift Present Normal [facility] Lymphocytes (Bld) [#/Vol] 2.55 10*3/uL Normal 1.00-4.00 [facility] Lymphocytes/100 WBC (Bld) 29.0 % Normal [facility] MCH 33.0 pG Normal 26.0-34.0 [facility] MCHC (RBC) [Mass/Vol] 35.2 g/dL Normal 30.5-36.0 [facility] MCV (RBC) [Entitic vol] 93.8 fL Normal 80.0-100.0 [facility] Metamyelocytes/100 WBC (Bld) 2.0 % Normal [facility] Monocytes/100 WBC (Bld) 1.0 % Normal [facility] Neutrophils/100 WBC (Bld) 65.0 % Normal [facility] Platelet Estimate Platelet estimate decreased Normal [facility] Platelet mean volume (Bld) [Entitic vol] 11.8 fL Normal 9.0-12.7 [facility] Platelets (Bld) [#/Vol] 106 10*3/uL Low 150-400 [facility] Polychromasia Slight Normal [facility] RBC (Bld) [#/Vol] 3.06 10*6/uL Low 4.20-6.00 [facility] WBC (Bld) [#/Vol] 8.78 10*3/uL Normal 3.70-11.00 [facility] Comp Metabolic Panelon 09-07 Albumin [Mass/Vol] 2.6 g/dL Low 3.9-4.9 [facility] ALP [Catalytic activity/Vol] 312 U/L High 38-113 [facility] ALT [Catalytic activity/Vol] 50 U/L Normal 10-54 [facility] Anion gap [Moles/Vol] 10 mmol/L Normal 9-18 [facility] AST [Catalytic activity/Vol] 71 U/L High 14-40 [facility] Bilirubin [Mass/Vol] 10.2 mg/dL High 0.2-1.3 [facility] Calcium [Mass/Vol] 9.4 mg/dL Normal 8.5-10.2 [facility] Chloride [Moles/Vol] 102 mmol/L Normal 97-105 [facility] CO2 [Moles/Vol] 23 mmol/L Normal 22-33 [facility] Creatinine [Mass/Vol] 0.92 mg/dL Normal 0.73-1.22 [facility] eGFR- Amer. >60 Normal [facility] eGFR-All Other Races >60 Normal [facility] Comment on above: Result Comment: eGFR [...] GFR. Glucose [Mass/Vol] 67 mg/dL Low 74-99 [facility] Potassium [Moles/Vol] 3.5 mmol/L Low 3.7-5.1 [facility] Protein [Mass/Vol] 5.3 g/dL Low 6.3-8.0 [facility] Sodium [Moles/Vol] 135 mmol/L Low 136-144 [facility] Urea nitrogen [Mass/Vol] 18 mg/dL Normal 9-24 [facility] Magnesiumon 09-07-2020 Magnesium [Mass/Vol] 2.2 mg/dL Normal 1.7-2.3 [facility] NURSING PROGon 09-07-2020 NURSING PROG HNO ID: [id number] Author: Lubna Vaz RN Service: ? Author Type: Registered Nurse Type: Nursing Progress Note Filed: 09/07/2020 1:38 PM Note Text: Nursing Progress Note Patient Name: Jesus Shaver Patient Location: [place] [address]/[facility]-1 Daily Note: The patients assessment is without change This note was completed by: Audra Vaz [facility] NURSING PROG HNO ID: [id number] Author: Elzbieta Le, RN Service: ? Author Type: Registered Nurse Type: Nursing Progress Note Filed: 09/07/2020 2:00 AM Note Text: Nursing Progress Note Patient Name: Jesus Shaver Patient Location: [facility]- Daily Note: 2109 Pt assessment completed as [...] This note was completed by: Elzbieta Le [facility] Phosphoruson 09-07-2020 Phosphate [Mass/Vol] 2.7 mg/dL Normal 2.7-4.8 [facility] Protimeon 09-07-2020 PT INR 1.0 Normal 0.9-1.3 [facility] Comment on above: Result Comment: Rocio min K Antagonist (VKA) Therapeutic Range: INR 2 to 3 (Target INR of 2.5) Note: For patients treated with VKA drugs, such as warfarin, the [employer] 2012 Guideline recommends [...] Chest 2012, 141:7S-47S Jermaine RA, et al. [facility] 2017, 70: 252-289 PT Sec 11.1 sec Normal 9.7-13.0 [facility] CASE MANAGEMon 09-06-2020 CASE MANAGEM HNO ID: [id number] Author: EZE Del [place] Service: Social Work Author Type: Associate Professor Of Management Type: Care Mgt Progress Note Filed: 09/06/2020 4:28 PM Note Text: CARE MANAGEMENT PROGRESS NOTE SERVICE DATE: 09/06/2020 SERVICE TIME: 4:26 PM LOS: 9 days Needs Prior to Discharge: To Be Determined Patient reviewed with this am. Patient is from [facility] and ANI has placed 2 calls to group fitness assistant department head Le to see if patient is able to return with a biliary drain and have received no response. ANI also reached out to patient's guardian Mandy today to assist with d/c planning and message left. SIGNATURE: EZE Del Rio PATIENT NAME: Jesus Shaver DATE: September 06, 2020 TIME: 4:26 PM PAGER/CONTACT #: [phone] Normal [facility] CBC and Differentialon 09-06 Abs Baso 0.10 k/uL Normal <0.11 [facility] Abs Ada 1.46 k/uL High <0.87 [facility] Abs Neut 5.82 k/uL Normal 1.45-7.50 [facility] ANC(includeSEG+BAND) 5.82 k/uL Normal [facility] Anisocytosis Ql (Bld) Present Normal [facility] Basophils/100 WBC (Bld) 1.0 % Normal [facility] DTYPE Manual Diff Normal [facility] Eosinophils (Bld) [#/Vol] 0.00 10*3/uL Normal <0.46 [facility] Eosinophils/100 WBC (Bld) 0.0 % Normal [facility] Erythrocyte distribution width (RBC) [Ratio] 20.5 % High 11.5-15.0 [facility] Hematocrit (Bld) [Volume fraction] 30.1 % Low 39.0-51.0 [facility] Hemoglobin (Bld) [Mass/Vol] 10.8 g/dL Low 13.0-17.0 [facility] Left Shift Present Normal [facility] Lymphocytes (Bld) [#/Vol] 2.04 10*3/uL Normal 1.00-4.00 [facility] Lymphocytes/100 WBC (Bld) 21.0 % Normal [facility] MCH 33.2 pG Normal 26.0-34.0 [facility] MCHC (RBC) [Mass/Vol] 35.9 g/dL Normal 30.5-36.0 [facility] MCV (RBC) [Entitic vol] 92.6 fL Normal 80.0-100.0 [facility] Metamyelocytes/100 WBC (Bld) 2.0 % Normal [facility] Monocytes/100 WBC (Bld) 15.0 % Normal [facility] Myelo% 1.0 % Normal [facility] Neutrophils/100 WBC (Bld) 60.0 % Normal [facility] Platelet Estimate Platelet estimate decreased Normal [facility] Platelet mean volume (Bld) [Entitic vol] 13.0 fL High 9.0-12.7 [facility] Platelets (Bld) [#/Vol] 107 10*3/uL Low 150-400 [facility] Polychromasia Slight Normal [facility] RBC (Bld) [#/Vol] 3.25 10*6/uL Low 4.20-6.00 [facility] Target Cells Many Normal [facility] WBC (Bld) [#/Vol] 9.70 10*3/uL Normal 3.70-11.00 [facility] CONSULTon 09-06-2020 CONSULT HNO ID: [id number] Author: María Aguilar MD Service: Electrophysiology Author [...] by RECTAL route once daily as needed. xvwyxej-[id number]-fmbmqce D3 (OYSTER SHELL CALCIUM-VITAMIN D) 500 mg(1,250mg) [...] ?F) Axilla (more content not included)... Normal [facility] Comp Metabolic Panelon 09-06 Albumin [Mass/Vol] 2.7 g/dL Low 3.9-4.9 [facility] ALP [Catalytic activity/Vol] 347 U/L High 38-113 [facility] ALT [Catalytic activity/Vol] 57 U/L High 10-54 [facility] Anion gap [Moles/Vol] 9 mmol/L Normal 9-18 [facility] AST [Catalytic activity/Vol] 68 U/L High 14-40 [facility] Bilirubin [Mass/Vol] 11.3 mg/dL High 0.2-1.3 [facility] Calcium [Mass/Vol] 9.9 mg/dL Normal 8.5-10.2 [facility] Chloride [Moles/Vol] 102 mmol/L Normal 97-105 [facility] CO2 [Moles/Vol] 25 mmol/L Normal 22-33 [facility] Creatinine [Mass/Vol] 0.96 mg/dL Normal 0.73-1.22 [facility] eGFR- Amer. >60 Normal [facility] eGFR-All Other Races >60 Normal [facility] Comment on above: Result Comment: eGFR [...] GFR. Glucose [Mass/Vol] 59 mg/dL Low 74-99 [facility] Potassium [Moles/Vol] 4.2 mmol/L Normal 3.7-5.1 [facility] Protein [Mass/Vol] 5.4 g/dL Low 6.3-8.0 [facility] Sodium [Moles/Vol] 136 mmol/L Normal 136-144 [facility] Urea nitrogen [Mass/Vol] 16 mg/dL Normal 9-24 [facility] Magnesiumon 09-06-2020 Magnesium [Mass/Vol] 2.3 mg/dL Normal 1.7-2.3 [facility] NURSING PROGon 09-06-2020 NURSING PROG HNO ID: [id number] Author: Lubna Vaz RN Service: ? Author Type: Registered Nurse Type: Nursing Progress Note Filed: 09/06/2020 10:14 AM Note Text: Nursing Progress Note Patient Name: Jesus Shaver Patient Location: [place] [address] Daily Note The patients assessment without change. This note was completed by: Audra Vaz [facility] NUTRITIONon 09-06-2020 NUTRITION HNO ID: [id number] Author: Beverly Jain DTR Service: Nutrition Therapy Author Type: Hand Cloth Examiner Type: Nutrition Filed: 09/06/2020 12:38 PM Note Text: NUTRITION THERAPY METAL PRODUCTS VIEWER NOTE SERVICE DATE: 09/06/2020 SERVICE TIME: 10:35 AM Visit Type: Length of Stay 65 year old man with history of MRDD who lives in a senior care was transferred from [facility] for obstructive jaundice. Plan of Care: Supplements: Ensure Enlive Follow-Up: Monitor weekly Nursing Admission Assessment Malnutrition Score: Nutrition Intake: Diet Orders (From admission, onward) Start Ordered 09/04/20 1430 DIET REGULAR START NOW 09/04/20 1417 Appetite: Good Nursing reports 100% at breakfast ~ 662 kcals and 16 grams of protein. Pt. [id number] Anthropometrics: HT/WT/BMI 06/04/2018 11/01/2018 11/28/2018 06/16/2020 HEIGHT [...] September 06, 2020 TIME: 12:35 PM PAGER: [phone] Normal [facility] Phosphoruson 09-06-2020 Phosphate [Mass/Vol] 2.7 mg/dL Normal 2.7-4.8 [facility] Protimeon 09-06-2020 PT INR 1.0 Normal 0.9-1.3 [facility] Comment on above: Result Comment: Rocio min K Antagonist (VKA) Therapeutic Range: INR 2 to 3 (Target INR of 2.5) Note: For patients treated with VKA drugs, such as warfarin, the [employer] 2012 Guideline recommends [...] GH, et al. Chest 2012, 141:7S-47S Jermaine TIRADO et al. [facility] 2017, 70: 252-289 PT Sec 11.2 sec Normal 9.7-13.0 [facility] THERAPY NTon 09-06-2020 THERAPY NT HNO ID: [id number] Author: Christopher Lomeli, PT Service: Physical Therapy Author Type: Physical Therapist Type: Therapy (PT/OT/Speech/Resp) Filed: 09/06/2020 2:51 PM Note Text: Physical Therapy Treatment SERVICE DATE: 09/06/2020 SERVICE TIME: 1431 to 1440 ROOM: [place] [address] Recommended Discharge Disposition: Home PT Recommended Discharge Disposition Comments: not sure of pt's baseline for functional mobility. Per previous notes - appears pt uses w/c or walker for mobility with assist of staff. If [facility]sp can manage pt's needs, then pt would [...] challenge or move without loss of balance -HLM: 6: Walk 10 steps or more Learning/Educational [...] feet;Muscle Weakness (generalized) Interventions Provided: Therapeutic Activity (88570) Therapeutic Activity (80732) Treatment Minutes: 9 $ Therapeutic Activity (78206) Billed Units: 1 unit Training AND education provided in: Benefits of in-hospital mobility, Bed mobility, Discharge p (more content not included)... [facility] THERAPY NT HNO ID: [id number] Author: Christopher Lomeli, PT Service: Physical Therapy Author Type: Physical Therapist Type: Therapy (PT/OT/Speech/Resp) Filed: 09/06/2020 2:43 PM Note Text: PHYSICAL THERAPY MISSED VISIT SERVICE DATE: 09/06/2020 SERVICE TIME: 1325 to 1325 ROOM: [address] Attempted Treatment. Patient not seen due to Declined. Pt declining to move secondary to pain. Pt with lengthy redirection after discussion and agreeable for therapy to attempt later this date. Will follow up later this date. SIGNATURE: Christopher oLmeli, PT PATIENT NAME: Jesus Shaver DATE: September 06, 2020 TIME: 2:42 PM Normal [facility] CBC and Differentialon 09-05 Abs Baso 0.10 k/uL Normal <0.11 [facility] Abs Ada 0.59 k/uL Normal <0.87 [facility] Abs Neut 5.36 k/uL Normal 1.45-7.50 [facility] ANC(includeSEG+BAND) 5.36 k/uL Normal [facility] Anisocytosis Ql (Bld) Present Normal [facility] Basophils/100 WBC (Bld) 1.0 % Normal [facility] DTYPE Manual Diff Normal [facility] Eosinophils (Bld) [#/Vol] 0.29 10*3/uL Normal <0.46 [facility] Eosinophils/100 WBC (Bld) 3.0 % Normal [facility] Erythrocyte distribution width (RBC) [Ratio] 20.4 % High 11.5-15.0 [facility] Hematocrit (Bld) [Volume fraction] 31.6 % Low 39.0-51.0 [facility] Hemoglobin (Bld) [Mass/Vol] 11.3 g/dL Low 13.0-17.0 [facility] Left Shift Present Normal [facility] Lymphocytes (Bld) [#/Vol] 3.02 10*3/uL Normal 1.00-4.00 [facility] Lymphocytes/100 WBC (Bld) 31.0 % Normal [facility] MCH 33.1 pG Normal 26.0-34.0 [facility] MCHC (RBC) [Mass/Vol] 35.8 g/dL Normal 30.5-36.0 [facility] MCV (RBC) [Entitic vol] 92.7 fL Normal 80.0-100.0 [facility] Metamyelocytes/100 WBC (Bld) 2.0 % Normal [facility] Monocytes/100 WBC (Bld) 6.0 % Normal [facility] Myelo% 2.0 % Normal [facility] Neutrophils/100 WBC (Bld) 55.0 % Normal [facility] Platelet Estimate Platelet estimate decreased Normal [facility] Platelet mean volume (Bld) [Entitic vol] 12.4 fL Normal 9.0-12.7 [facility] Platelets (Bld) [#/Vol] 99 10*3/uL Low 150-400 [facility] Comment on above: Result Comment: Samp le checked for a clot. Polychromasia Slight Normal [facility] RBC (Bld) [#/Vol] 3.41 10*6/uL Low 4.20-6.00 [facility] Target Cells Few Normal [facility] WBC (Bld) [#/Vol] 9.75 10*3/uL Normal 3.70-11.00 [facility] Comp Metabolic Panelon 09-05 Albumin [Mass/Vol] 2.7 g/dL Low 3.9-4.9 [facility] ALP [Catalytic activity/Vol] 404 U/L High 38-113 [facility] ALT [Catalytic activity/Vol] 68 U/L High 10-54 [facility] Anion gap [Moles/Vol] 8 mmol/L Low 9-18 [facility] AST [Catalytic activity/Vol] 76 U/L High 14-40 [facility] Bilirubin [Mass/Vol] 12.0 mg/dL High 0.2-1.3 [facility] Calcium [Mass/Vol] 9.7 mg/dL Normal 8.5-10.2 [facility] Chloride [Moles/Vol] 104 mmol/L Normal 97-105 [facility] CO2 [Moles/Vol] 27 mmol/L Normal 22-33 [facility] Creatinine [Mass/Vol] 0.93 mg/dL Normal 0.73-1.22 [facility] eGFR- Amer. >60 Normal [facility] eGFR-All Other Races >60 Normal [facility] Comment on above: Result Comment: eGFR [...] GFR. Glucose [Mass/Vol] 68 mg/dL Low 74-99 [facility] Potassium [Moles/Vol] 4.0 mmol/L Normal 3.7-5.1 [facility] Protein [Mass/Vol] 5.4 g/dL Low 6.3-8.0 [facility] Sodium [Moles/Vol] 139 mmol/L Normal 136-144 [facility] Urea nitrogen [Mass/Vol] 9 mg/dL Normal 9-24 [facility] Ferritinon 09-05-2020 Ferritin [Mass/Vol] 1120.0 ng/mL High 30.3-565.7 [facility] Comment on above: Performed By: #### L D6 ####[facility] [place], [place] [phone] Iron (FOR EAST ONLY)on 09-05 Iron [Mass/Vol] 67 ug/dL Normal 30-140 [facility] Comment on above: Performed By: #### L D6 ####[facility] [address] [place], [place] [phone] LDon 09-05-2020 LD 194 U/L Normal 135-225 [facility] Comment on above: Performed By: #### L D6 ####[place] [id number] [place], [place] [phone] Magnesiumon 09-05-2020 Magnesium [Mass/Vol] 2.1 mg/dL Normal 1.7-2.3 [facility] NURSING PROGon 09-05-2020 NURSING PROG HNO ID: [id number] Author: Mami Diana RN Service: Nursing Author Type: Registered Nurse Type: Nursing Progress Note Filed: 09/05/2020 8:01 PM Note Text: Nursing Progress Note Patient Name: Jesus Shaver Patient Location: [id number]/[facility]3B-365-1 1900 Assumed care of patient. 1948 Pt [...] This note was completed by: Mami Diana [facility] NURSING PROG HNO ID: [id number] Author: Elzbieta Gonsales RN Service: ? Author Type: Registered Nurse Type: Nursing Progress Note Filed: 09/05/2020 4:41 PM Note Text: Nursing Progress Note Patient Name: Jesus Shaver Patient Location: [facility]3B-365/[facility]3B-365-1 Daily Note: 0800 assumed care of pt, [...] This note was completed by: Elzbieta Gonsales [facility] Phosphoruson 09-05-2020 Phosphate [Mass/Vol] 2.2 mg/dL Low 2.7-4.8 [facility] Protimeon 09-05-2020 PT INR 1.1 Normal 0.9-1.3 [facility] Comment on above: Result Comment: Rocio min K Antagonist (VKA) Therapeutic Range: INR 2 to 3 (Target INR of 2.5) Note: For patients treated with VKA drugs, such as warfarin, the [employer] 2012 Guideline recommends [...] [phone] Performed By: #### L D6 #### [facility] [address] [place], [place] [address] PT Sec 11.4 sec Normal 9.7-13.0 [facility] Comment on above: Performed By: #### L D6 #### [facility] [address] [place], [place] [address] TIBCon 09-05-2020 TIBC 179 ug/dL Low 210-415 [facility] Comment on above: Performed By: #### L D6 ####[facility] [address] [place], [place] [phone] Transferrin Saturatn 37 % Normal 11-46 [facility] Comment on above: Performed By: #### L D6 ####[facility] [address] [place], [place] [phone] Ammoniaon 09-04-2020 Ammonia (P) [Moles/Vol] 33 umol/L Normal 16-60 [facility] CBC and Differentialon 09-04 Abs Baso 0.00 k/uL Normal <0.11 [facility] Abs Ada 0.47 k/uL Normal <0.87 [facility] Abs Neut 6.59 k/uL Normal 1.45-7.50 [facility] ANC(includeSEG+BAND) 6.59 k/uL Normal [facility] Anisocytosis Ql (Bld) Present Normal [facility] Basophils/100 WBC (Bld) 0.0 % Normal [facility] DTYPE Manual Diff Normal [facility] Eosinophils (Bld) [#/Vol] 0.09 10*3/uL Normal <0.46 [facility] Eosinophils/100 WBC (Bld) 1.0 % Normal [facility] Erythrocyte distribution width (RBC) [Ratio] 19.9 % High 11.5-15.0 [facility] Hematocrit (Bld) [Volume fraction] 29.8 % Low 39.0-51.0 [facility] Hemoglobin (Bld) [Mass/Vol] 10.7 g/dL Low 13.0-17.0 [facility] Left Shift Present Normal [facility] Lymphocytes (Bld) [#/Vol] 1.98 10*3/uL Normal 1.00-4.00 [facility] Lymphocytes/100 WBC (Bld) 21.0 % Normal [facility] MCH 33.2 pG Normal 26.0-34.0 [facility] MCHC (RBC) [Mass/Vol] 35.9 g/dL Normal 30.5-36.0 [facility] MCV (RBC) [Entitic vol] 92.5 fL Normal 80.0-100.0 [facility] Metamyelocytes/100 WBC (Bld) 2.0 % Normal [facility] Monocytes/100 WBC (Bld) 5.0 % Normal [facility] Myelo% 1.0 % Normal [facility] Neutrophils/100 WBC (Bld) 70.0 % Normal [facility] Platelet Estimate Platelet estimate decreased Normal [facility] Platelet mean volume (Bld) [Entitic vol] 12.4 fL Normal 9.0-12.7 [facility] Platelets (Bld) [#/Vol] 93 10*3/uL Low 150-400 [facility] Comment on above: Result Comment: Jeanmarie le checked for a clot. RBC (Bld) [#/Vol] 3.22 10*6/uL Low 4.20-6.00 [facility] WBC (Bld) [#/Vol] 9.41 10*3/uL Normal 3.70-11.00 [facility] CNPNon 09-04-2020 CNPN Telephone (HLPRAD) -- SHAVERJESUS CANO ([id number]) 1955 M Date Time Provider Department 09/04/20 MANSI PATTON [...] and stone extraction at the same time [facility] pool>>> ERCP 6 to 8 weeks time. Removal of pancreatic stent. Removal of bile duct stone and external biliary drainage catheter. Patient is in a senior care. He is still in the hospital so can select a date and coordinate with the senior care after his discharge. MD Liz Lopez PSS 09/14/2020 1:59 PM Signed Spoke to nurse Anastacia, pt is at [facility]. Pt is scheduled for ERCP 10/13/20 at .I will fax instructions to [phone] Anastacia said pt is not on blood thinners. Patient does not need to arrive on stretcher. They will do covid test at residential and fax us results. Liz Cole PSS 09/14/2020 2:06 PM Signed Addended by: FERNIE GOODRICH, JULY on: 09/14/2020 02:06 PM Modules accepted: Orders July Fernie [facility] 10/12/2020 3:28 PM Signed Message sent to Dr uL to let his staff know to contact patients facility [facility]. Procedure canceled at with Vladic 10/13. Dr Lu will do ercp 10/27. Allergies As of Date: 09/04/2020 Noted Allergy Reaction KEPPRA (LEVETIRACETAM) 05/14/2015 14 - Other: See Comments Comments: Increased seizures VICKS VAPORUB ([id number]*2015 2 - Rash Date Reviewed: 09/04/2020 Reviewed by: Vanda Duran RN - Fully Assessed Reason for Visit: Clinical Update [1735] Primary Visit Diagnosis:Choledocholithia sis [K80.50] Order(s):ERCP GEN ANES [4544107] Order #: [id number] FUTURE Prescriptions as of 09/04/2020 Sig: CERTAVITE-ANTIOXIDANT [...] Encounter Status:Closed by ADAM CAAL on 09/05/20 [facility] CONSULT PROGon 09-04-2020 CONSULT PROG HNO ID: [id number] Author: Mansi Patton MD Service: Gastroenterology Author [...] DATE: September 04, 2020 TIME: 2:11 PM [facility] Comp Metabolic Panelon 09-04 Albumin [Mass/Vol] 2.6 g/dL Low 3.9-4.9 [facility] ALP [Catalytic activity/Vol] 439 U/L High 38-113 [facility] ALT [Catalytic activity/Vol] 81 U/L High 10-54 [facility] Anion gap [Moles/Vol] 7 mmol/L Low 9-18 [facility] AST [Catalytic activity/Vol] 109 U/L High 14-40 [facility] Bilirubin [Mass/Vol] 15.4 mg/dL High 0.2-1.3 [facility] Calcium [Mass/Vol] 9.1 mg/dL Normal 8.5-10.2 [facility] Chloride [Moles/Vol] 101 mmol/L Normal 97-105 [facility] CO2 [Moles/Vol] 28 mmol/L Normal 22-33 [facility] Creatinine [Mass/Vol] 0.86 mg/dL Normal 0.73-1.22 [facility] Comment on above: Result Comment: Resu lt may be falsely decreased due to icteric interference. eGFR- Amer. >60 Normal [facility] eGFR-All Other Races >60 Normal [facility] Comment on above: Result Comment: eGFR [...] GFR. Glucose [Mass/Vol] 90 mg/dL Normal 74-99 [facility] Potassium [Moles/Vol] 3.5 mmol/L Low 3.7-5.1 [facility] Protein [Mass/Vol] 4.9 g/dL Low 6.3-8.0 [facility] Sodium [Moles/Vol] 136 mmol/L Normal 136-144 [facility] Urea nitrogen [Mass/Vol] 8 mg/dL Low 9-24 [facility] Magnesiumon 09-04-2020 Magnesium [Mass/Vol] 2.0 mg/dL Normal 1.7-2.3 [facility] NURSING PROGon 09-04-2020 NURSING PROG HNO ID: [id number] Author: Daisy Herrera RN Service: Nursing Author Type: Registered Nurse Type: Nursing Progress Note Filed: 09/04/2020 9:51 PM Note Text: Nursing Progress Note Patient Name: Jesus Sahver Patient [facility]: [facility]365/[facility]-1 Daily Note: 1914 - Received bedside report from day shift RN. Pt resting in bed with no needs at this time. Call light in reach. 2044 - Assessed pt, See flowsheet. VSS. External cath placed to suction. 0000 - Bath complete, Oral care complete. This note was completed by: Daisy Herrera [facility] NURSING PROG HNO ID: [id number] Author: Vanda Duran RN Service: ? Author Type: Registered Nurse Type: Nursing Progress Note Filed: 09/04/2020 9:19 AM Note Text: Nursing Progress Note Patient Name: Jesus Shaver [facility] Daily Note:Assessment complete. Pt awake and oriented only to self. Denies pain. Biliary drain with green liquid output to gravity. IVFs infusing. Call light in reach. This note was completed by: Vanda Duran [facility] NURSING PROG HNO ID: [id number] Author: Mami Camargo RN Service: Nursing Author Type: Registered Nurse Type: Nursing Progress Note Filed: 09/04/2020 3:19 AM Note Text: Nursing Progress Note Patient Name: Jesus Shaevr Patient Location: [facility]- Daily Note:2000 Pt resting in bed, oriented to self only. IV infusing without difficulty. Agitated at times, able to follow very basic commands. Incontinence care given as needed. Call king within reach, bed alarm on for safety. 0000 Reassessed per flowsheet, no changes noted. Call king within reach. Bed alarm on for safety. This note was completed by: Mami Camargo [facility] Phosphoruson 09-04-2020 Phosphate [Mass/Vol] 2.1 mg/dL Low 2.7-4.8 [facility] ANES POSTPROC EVALon 021 ANES POSTPROC EVAL HNO ID: [id number] Author: Rosita West MD Service: Anesthesiology Author Type: Anesthesiologist Type: Anesthesia Postprocedure Evaluation Filed: 09/03/2020 4:12 PM Note Text: POST ANESTHESIA EVALUATION NOTE : 1955 Procedure Summary Date: 09/03/20 Room / Location: IR / IR Anesthesia Start: 1325 Anesthesia Stop: 1521 Procedure: CHOLECYSTOSTOMY PERCUTANEOUS CATH PLACEMENT CHOLECYSTOGRAM RADIOLOGY [...] September 03, 2020 TIME: 4:12 PM CSN: [id number] [facility] ANES PRE-OPon 09-03-2020 ANES PRE-OP HNO ID: [id number] Author: Rosita West MD Service: Anesthesiology Author [...] 1 tablet by mouth once daily. - hdvzuwv-mofkltyav-myduhco D3 (OYSTER SHELL CALCIUM-VITAMIN D) 500 mg(1,250mg) [...] September 03, 2020 (more content not included)... [facility] CASE MANAGEMon 09-03-2020 CASE MANAGEM HNO ID: [id number] Author: EZE Del Rio Service: Social Work Author Type: Associate Professor Of Management Type: Care Mgt Progress Note Filed: 09/03/2020 4:23 PM Note Text: CARE MANAGEMENT PROGRESS NOTE SERVICE DATE: 09/03/2020 SERVICE TIME: 4:20 PM LOS: 6 days Needs Prior to Discharge: To Be Determined SW following for support and d/c planning back to [facility] at hospital d/c. SW has reached out to group fitness assistant department head to see if they can accept patient back with a biliary drain and await return phone call. Patient off floor for procedure today. SIGNATURE: EZE Del Rio PATIENT NAME: Jesus Shaver DATE: September 03, 2020 TIME: 4:19 PM PAGER/CONTACT #: [phone] Normal [facility] CBC and Differentialon 09-03 Abs Baso 0.00 k/uL Normal <0.11 [facility] Abs Ada 0.78 k/uL Normal <0.87 [facility] Abs Neut 6.35 k/uL Normal 1.45-7.50 [facility] ANC(includeSEG+BAND) 6.35 k/uL Normal [facility] Anisocytosis Ql (Bld) Present Normal [facility] Basophils/100 WBC (Bld) 0.0 % Normal [facility] DTYPE Manual Diff Normal [facility] Eosinophils (Bld) [#/Vol] 0.20 10*3/uL Normal <0.46 [facility] Eosinophils/100 WBC (Bld) 2.0 % Normal [facility] Erythrocyte distribution width (RBC) [Ratio] 19.4 % High 11.5-15.0 [facility] Hematocrit (Bld) [Volume fraction] 31.2 % Low 39.0-51.0 [facility] Hemoglobin (Bld) [Mass/Vol] 11.1 g/dL Low 13.0-17.0 [facility] Left Shift Present Normal [facility] Lymphocytes (Bld) [#/Vol] 2.25 10*3/uL Normal 1.00-4.00 [facility] Lymphocytes/100 WBC (Bld) 23.0 % Normal [facility] MCH 32.8 pG Normal 26.0-34.0 [facility] MCHC (RBC) [Mass/Vol] 35.6 g/dL Normal 30.5-36.0 [facility] MCV (RBC) [Entitic vol] 92.3 fL Normal 80.0-100.0 [facility] Metamyelocytes/100 WBC (Bld) 2.0 % Normal [facility] Monocytes/100 WBC (Bld) 8.0 % Normal [facility] Neutrophils/100 WBC (Bld) 65.0 % Normal [facility] Platelet Estimate Platelet estimate decreased Normal [facility] Platelet mean volume (Bld) [Entitic vol] 12.5 fL Normal 9.0-12.7 [facility] Platelets (Bld) [#/Vol] 108 10*3/uL Low 150-400 [facility] RBC (Bld) [#/Vol] 3.38 10*6/uL Low 4.20-6.00 [facility] Target Cells Many Normal [facility] WBC (Bld) [#/Vol] 9.77 10*3/uL Normal 3.70-11.00 [facility] CONSULT PROGowilliam 09-03-2020 CONSULT PROG HNO ID: [id number] Author: Ivonne Robison APRN.TABLEAU ADMINISTRATOR Service: Gastroenterology Author Type: Nurse Practitioner Type: Consult Progress Note Filed: 09/03/2020 1:14 PM Note Text: CONSULT GI PROGRESS NOTES PATIENT NAME: Jesus Shaver SERVICE DATE: 09/03/2020 SERVICE TIME: 1:09 PM CONSULTING SERVICE: GI in collaboration with Dr. José Miguel ALVARADO living in a senior care [...] 2020 TIME: 1:09 PM CALL OR TEXT: [phone] Normal [facility] Comp Metabolic Panelon 09-03 Albumin [Mass/Vol] 2.1 g/dL Low 3.9-4.9 [facility] ALP [Catalytic activity/Vol] 515 U/L High 38-113 [facility] ALT [Catalytic activity/Vol] 97 U/L High 10-54 [facility] Anion gap [Moles/Vol] 7 mmol/L Low 9-18 [facility] AST [Catalytic activity/Vol] 139 U/L High 14-40 [facility] Bilirubin [Mass/Vol] 16.3 mg/dL High 0.2-1.3 [facility] Calcium [Mass/Vol] 8.9 mg/dL Normal 8.5-10.2 [facility] Chloride [Moles/Vol] 103 mmol/L Normal 97-105 [facility] CO2 [Moles/Vol] 27 mmol/L Normal 22-33 [facility] Creatinine [Mass/Vol] 0.90 mg/dL Normal 0.73-1.22 [facility] Comment on above: Result Comment: Resu lt may be falsely decreased due to icteric interference. eGFR- Amer. >60 Normal [facility] eGFR-All Other Races >60 Normal [facility] Comment on above: Result Comment: eGFR [...] GFR. Glucose [Mass/Vol] 79 mg/dL Normal 74-99 [facility] Potassium [Moles/Vol] 4.1 mmol/L Normal 3.7-5.1 [facility] Protein, Total Unable to assay. Spe cimen significantly icteric. Normal 6.3-8.0 [facility] Sodium [Moles/Vol] 137 mmol/L Normal 136-144 [facility] Urea nitrogen [Mass/Vol] 8 mg/dL Low 9-[address] [facility] [address] CATH BILI DRAIN INT [...] ensure best possible outcome) with the legal food service sales representatives and all questions were answered and consent [...] Kerma: 521.0 mGy Dose Area Product (DAP): 45072.8 mGy*cm2 Fluoro Time: 23:48 min:sec Radiation dose [...] biliary dilation. Choledocholithiasis. Biliary drain: 8 F [employer] internal external biliary drainage catheter Final [...] performed by the: attending radiologist, without an shampoo assistant. The attending radiologist (more content not included)... [facility] Magnesiumon 09-03-2020 Magnesium [Mass/Vol] 2.0 mg/dL Normal 1.7-2.3 [facility] NURSING PROGon 09-03-2020 NURSING PROG HNO ID: [id number] Author: Juliana Woodson RN Service: ? Author [...] notified and okay for d/c from pacu. [facility] NURSING PROG HNO ID: [id number] Author: Courtney Navarro RN Service: ? Author Type: Registered Nurse Type: Nursing Progress Note Filed: 09/03/2020 10:30 AM Note Text: Nursing Progress Note Patient Name: Jesus Shaver Patient Location: [facility]365/[facility]365-1 Daily Note: Assumed care of pt. Pt alert but only oriented to self. Pt denies pain for this RN. Telemetry on. Pt resting in bed, bed low and locked. Call light within reach. Bed alarm on. Offered needs. This note was completed by: Courtney Navarro [facility] NURSING PROG HNO ID: [id number] Author: Jacqueline Ramachandran RN Service: ? Author Type: Registered Nurse Type: Nursing Progress Note Filed: 09/03/2020 2:38 AM Note Text: Nursing Progress Note Patient Name: Jesus Shaver Patient Location: [facility]365/[facility]-365-1 Daily Note: 1929 Assumed care of patient. Safety maintained 2049 Patient is ao to self. Linen and gown soiled. Bed change completed. Assessment as charted. Denies needs. 0020 Assisted patient in using urinal. This note was completed by: Jacqueline Ramachandran [facility] Phosphoruson 09-03-2020 Phosphate [Mass/Vol] 1.7 mg/dL Low 2.7-4.8 [facility] THERAPY NTon 09-03-2020 THERAPY NT HNO ID: [id number] Author: Nia Harrsi PTA Service: Physical Therapy Author Type: Radiology Equipment Servicer Type: Therapy (PT/OT/Speech/Resp) Filed: 09/03/2020 2:32 PM Note Text: -- Attestation signed by Christopher Russell PT at 09/03/2020 2:37 PM I reviewed and agree with the assessment as documented above. SIGNATURE: Christopher Russell PT DATE: September 03, 2020 TIME: 2:37 PM -- PHYSICAL THERAPY MISSED VISIT SERVICE DATE: 09/03/2020 SERVICE TIME: 1415 to 1415 ROOM: [facility] Attempted Treatment. Patient not seen due to Test/Procedure (pt. off of the floor). SIGNATURE: Nia Harris PTA PATIENT NAME: Jesus Shaver DATE: September 03, 2020 TIME: 2:32 PM Normal [facility] CBC and Differentialon 09-02 Abs Baso 0.00 k/uL Normal <0.11 [facility] Abs Ada 0.57 k/uL Normal <0.87 [facility] Abs Neut 6.39 k/uL Normal 1.45-7.50 [facility] ANC(includeSEG+BAND) 6.39 k/uL Normal [facility] Anisocytosis Ql (Bld) Present Normal [facility] Basophils/100 WBC (Bld) 0.0 % Normal [facility] DTYPE Manual Diff Normal [facility] Eosinophils (Bld) [#/Vol] 0.00 10*3/uL Normal <0.46 [facility] Eosinophils/100 WBC (Bld) 0.0 % Normal [facility] Erythrocyte distribution width (RBC) [Ratio] 19.2 % High 11.5-15.0 [facility] Hematocrit (Bld) [Volume fraction] 29.7 % Low 39.0-51.0 [facility] Hemoglobin (Bld) [Mass/Vol] 10.5 g/dL Low 13.0-17.0 [facility] Lymphocytes (Bld) [#/Vol] 1.23 10*3/uL Normal 1.00-4.00 [facility] Lymphocytes/100 WBC (Bld) 15.0 % Normal [facility] MCH 33.7 pG Normal 26.0-34.0 [facility] MCHC (RBC) [Mass/Vol] 35.4 g/dL Normal 30.5-36.0 [facility] MCV (RBC) [Entitic vol] 95.2 fL Normal 80.0-100.0 [facility] Monocytes/100 WBC (Bld) 7.0 % Normal [facility] Neutrophils/100 WBC (Bld) 78.0 % Normal [facility] Platelet Estimate Platelet estimate decreased Normal [facility] Platelet mean volume (Bld) [Entitic vol] 13.4 fL High 9.0-12.7 [facility] Platelets (Bld) [#/Vol] 87 10*3/uL Low 150-400 [facility] RBC (Bld) [#/Vol] 3.12 10*6/uL Low 4.20-6.00 [facility] Target Cells Moderate Normal [facility] WBC (Bld) [#/Vol] 8.19 10*3/uL Normal 3.70-11.00 [facility] CONSULT PROGon 09-02-2020 CONSULT PROG HNO ID: [id number] Author: Ivonne Robison APRN.TABLEAU ADMINISTRATOR Service: Gastroenterology Author Type: Nurse Practitioner Type: Consult Progress Note Filed: 09/02/2020 12:03 PM Note Text: CONSULT GI PROGRESS NOTES PATIENT NAME: Jesus Shaver SERVICE DATE: 09/02/2020 SERVICE TIME: 11:36 AM CONSULTING SERVICE: GI in collaboration with Dr. Afua ALVARADO living in a senior care ? [...] SUBJECTIVE INTERVAL HPI: Resting in bed in [facility] Denies any current nausea, vomiting, or abdominal [...] Amylase, AND Lipase Recent Labs 09/02/20 0609/01/20 0750 08/31/20 0555 TPROT 4.6* Unable to assay. Specimen significantly icteric. 4.8* ALB 2.0* 2.5* 2.4* ALT 98* 108* 94* AST 151* 182* 150* ALKPHOS 462* 504* 419* TBILI 15.8* 17.5* 16.1* SIGNATURE: Ivonne Robison APRN.CNP DATE: September 02, 2020 TIME: 11:36 AM CALL OR TEXT: [phone] Normal [facility] Comp Metabolic Panelon 09-02 Albumin [Mass/Vol] 2.0 g/dL Low 3.9-4.9 [facility] ALP [Catalytic activity/Vol] 462 U/L High 38-113 [facility] ALT [Catalytic activity/Vol] 98 U/L High 10-54 [facility] Anion gap [Moles/Vol] 8 mmol/L Low 9-18 [facility] AST [Catalytic activity/Vol] 151 U/L High 14-40 [facility] Bilirubin [Mass/Vol] 15.8 mg/dL High 0.2-1.3 [facility] Calcium [Mass/Vol] 8.7 mg/dL Normal 8.5-10.2 [facility] Chloride [Moles/Vol] 107 mmol/L High 97-105 [facility] CO2 [Moles/Vol] 24 mmol/L Normal 22-33 [facility] Creatinine [Mass/Vol] 0.87 mg/dL Normal 0.73-1.22 [facility] Comment on above: Result Comment: Resu lt may be falsely decreased due to icteric interference. eGFR- Amer. >60 Normal [facility] eGFR-All Other Races >60 Normal [facility] Comment on above: Result Comment: eGFR [...] GFR. Glucose [Mass/Vol] 119 mg/dL High 74-99 [facility] Potassium [Moles/Vol] 4.7 mmol/L Normal 3.7-5.1 [facility] Protein [Mass/Vol] 4.6 g/dL Low 6.3-8.0 [facility] Sodium [Moles/Vol] 139 mmol/L Normal 136-144 [facility] Urea nitrogen [Mass/Vol] 13 mg/dL Normal 9-24 [facility] Confirm Blood Typeon 021 ABO/RH(D) Negative Normal [facility] Magnesiumon 09-02-2020 Magnesium [Mass/Vol] 2.1 mg/dL Normal 1.7-2.3 [facility] NURSING PROGon 09-02-2020 NURSING PROG HNO ID: [id number] Author: Lubna Vaz RN Service: ? Author Type: Registered Nurse Type: Nursing Progress Note Filed: 09/02/2020 1:58 PM Note Text: Nursing Progress Note Patient Name: Jesus Shaver Patient Location: [facility]- Daily NoteThe patient is waiting to go to IR. He remains NPO. Assessment without change. This note was completed by: Audra Vaz [facility] NURSING PROG HNO ID: [id number] Author: Irene Soliman RN Service: Nursing Author Type: Registered Nurse Type: Nursing Progress Note Filed: 09/02/2020 3:41 AM Note Text: Nursing Progress Note Patient Name: Jesus Shaver Patient Location: [facility]- Daily Note: 210 Patient assessment completed and [...] [place] [id number] to update. This note was completed by: Irene Soliman [facility] Phosphoruson 09-02-2020 Phosphate [Mass/Vol] 2.8 mg/dL Normal 2.7-4.8 [facility] Type and Screenon 09-02-2020 ABO/RH(D) Negative [facility] ANES POSTPROC EVALon 021 ANES POSTPROC EVAL HNO ID: [id number] Author: Rosita eWst MD Service: Anesthesiology Author Type: Anesthesiologist Type: Anesthesia Postprocedure Evaluation Filed: 09/01/2020 4:38 PM Note Text: POST ANESTHESIA EVALUATION NOTE : 1955 Procedure Summary Date: 09/01/20 Room / Location: OR14A / [facility] OR Anesthesia Start: 1356 Anesthesia Stop: 1608 [...] September 01, 2020 TIME: 4:38 PM CSN: [id number] [facility] ANES PRE-OPon 09-01-2020 ANES PRE-OP HNO ID: [id number] Author: Tayler Tamez MD Service: Anesthesiology Author [...] 1 tablet by mouth once daily. - llvmyzy-zrywjsmhr-skkmyzq D3 (OYSTER SHELL CALCIUM-VITAMIN D) 500 mg(1,250mg) [...] September 01, 2020 TIME: 1:57 PM CSN: [id number] [facility] CASE MANAGEMon 09-01-2020 CASE MANAGEM HNO ID: [id number] Author: EZE Del Rio Service: Social Work Author Type: Associate Professor Of Management Type: Care Mgt Progress Note Filed: 09/01/2020 11:05 AM Note Text: CARE MANAGEMENT PROGRESS NOTE SERVICE DATE: 09/01/2020 SERVICE TIME: 11:02 AM LOS: 4 days SW following for support and d/c planning back to [facility] d/c. SIGNATURE: EZE Del Rio PATIENT NAME: Jesus Shaver DATE: September 01, 2020 TIME: 11:02 AM PAGER/CONTACT #: [phone] Normal [facility] CBC and Differentialon 09-01 Abs Baso 0.13 k/uL High <0.11 [facility] Abs Ada 0.60 k/uL Normal <0.87 [facility] Abs Neut 3.26 k/uL Normal 1.45-7.50 [facility] ANC(includeSEG+BAND) 3.26 k/uL Normal [facility] Basophils/100 WBC (Bld) 2.0 % Normal [facility] DTYPE Manual Diff Normal [facility] Eosinophils (Bld) [#/Vol] 0.00 10*3/uL Normal <0.46 [facility] Eosinophils/100 WBC (Bld) 0.0 % Normal [facility] Erythrocyte distribution width (RBC) [Ratio] 18.5 % High 11.5-15.0 [facility] Hematocrit (Bld) [Volume fraction] 31.2 % Low 39.0-51.0 [facility] Hemoglobin (Bld) [Mass/Vol] 11.3 g/dL Low 13.0-17.0 [facility] Left Shift Present Normal [facility] Lymphocytes (Bld) [#/Vol] 2.53 10*3/uL Normal 1.00-4.00 [facility] Lymphocytes/100 WBC (Bld) 38.0 % Normal [facility] MCH 33.1 pG Normal 26.0-34.0 [facility] MCHC (RBC) [Mass/Vol] 36.2 g/dL High 30.5-36.0 [facility] MCV (RBC) [Entitic vol] 91.5 fL Normal 80.0-100.0 [facility] Metamyelocytes/100 WBC (Bld) 2.0 % Normal [facility] Monocytes/100 WBC (Bld) 9.0 % Normal [facility] Neutrophils/100 WBC (Bld) 49.0 % Normal [facility] Platelet Estimate Platelet estimate decreased Normal [facility] Platelet mean volume (Bld) [Entitic vol] 12.5 fL Normal 9.0-12.7 [facility] Platelets (Bld) [#/Vol] 89 10*3/uL Low 150-400 [facility] Comment on above: Result Comment: Samp le checked for a clot. RBC (Bld) [#/Vol] 3.41 10*6/uL Low 4.20-6.00 [facility] Target Cells Many Normal [facility] WBC (Bld) [#/Vol] 6.65 10*3/uL Normal 3.70-11.00 [facility] Comp Metabolic Panelon 09-01 Albumin [Mass/Vol] 2.5 g/dL Low 3.9-4.9 [facility] ALP [Catalytic activity/Vol] 504 U/L High 38-113 [facility] ALT [Catalytic activity/Vol] 108 U/L High 10-54 [facility] Anion gap [Moles/Vol] 8 mmol/L Low 9-18 [facility] AST [Catalytic activity/Vol] 182 U/L High 14-40 [facility] Bilirubin [Mass/Vol] 17.5 mg/dL High 0.2-1.3 [facility] Calcium [Mass/Vol] 8.9 mg/dL Normal 8.5-10.2 [facility] Chloride [Moles/Vol] 107 mmol/L High 97-105 [facility] CO2 [Moles/Vol] 24 mmol/L Normal 22-33 [facility] Creatinine [Mass/Vol] 0.90 mg/dL Normal 0.73-1.22 [facility] Comment on above: Result Comment: Resu lt may be falsely decreased due to icteric interference. eGFR- Amer. >60 Normal [facility] eGFR-All Other Races >60 Normal [facility] Comment on above: Result Comment: eGFR [...] GFR. Glucose [Mass/Vol] 105 mg/dL High 74-99 [facility] Potassium [Moles/Vol] 4.0 mmol/L Normal 3.7-5.1 [facility] Protein, Total Unable to assay. Spe cimen significantly icteric. Normal 6.3-8.0 [facility] Sodium [Moles/Vol] 139 mmol/L Normal 136-144 [facility] Urea nitrogen [Mass/Vol] 15 mg/dL Normal 9-24 [facility] HISTORY PHYSICALon HISTORY PHYSICAL HNO ID: [id number] Author: Adam Caal MD Service: Gastroenterology Author [...] CONSENT>>NO RESPONSE. OBTAINED TWO DOCTOR CONSENT. Normal [facility] Magnesiumon 09-01-2020 Magnesium [Mass/Vol] 2.2 mg/dL Normal 1.7-2.3 [facility] NURSING PROGon 09-01-2020 NURSING PROG HNO ID: [id number] Author: Lester Salazar RN Service: ? Author Type: Registered Nurse Type: Nursing Progress Note Filed: 09/01/2020 4:05 PM Note Text: 1557 Patient to pacu 44 arousable to verbal stimuli, respirations even and unlabored, NSR on monitor, fluids infusing without difficulty, vss, pt. Resting comfortably, no c/o pain, n/v at this time, pt. Is jaundice as baseline Normal [facility] NURSING PROG HNO ID: [id number] Author: Elzbieta Gonsales RN Service: ? Author Type: Registered Nurse Type: Nursing Progress Note Filed: 09/01/2020 7:23 PM Note Text: Nursing Progress Note Patient Name: Jesus Shaver Patient Location: [place] [address]/[facility]-1 Daily Note: 0700 assumed care of pt, [...] This note was completed by: Elzbieta Gonsales [facility] NURSING PROG HNO ID: [id number] Author: Irene Soliman, RN Service: Nursing Author Type: Registered Nurse Type: Nursing Progress Note Filed: 09/01/2020 12:43 AM Note Text: Nursing Progress Note Patient Name: Jesus Shaver Patient Location: [facility] Daily Note: 2154 Patient assessment completed and documented. Patient is [...] This note was completed by: Irene Soliman [facility] Phosphoruson 09-01-2020 Phosphate [Mass/Vol] 2.0 mg/dL Low 2.7-4.8 [facility] Protimeon 09-01-2020 PT INR 1.0 Normal 0.9-1.3 [facility] Comment on above: Result Comment: Rocio min K Antagonist (VKA) Therapeutic Range: INR 2 to 3 (Target INR of 2.5) Note: For patients treated with VKA drugs, such as warfarin, the [employer] 2012 Guideline recommends [...] Chest 2012, 141:7S-47S Jermaine RA, et al. [facility] 2017, 70: 252-289 PT Sec 11.2 sec Normal 9.7-13.0 [facility] XR ERCP READ ONLYon 09-02-19 XR ERCP READ ONLY * * *Final [...] Sep 01 2020 6:18PM EST [id number] Normal [facility] ANES POSTPROC EVALon 021 ANES POSTPROC EVAL HNO ID: [id number] Author: Rosita West MD Service: Anesthesiology Author Type: Anesthesiologist Type: Anesthesia Postprocedure Evaluation Filed: 08/31/2020 12:25 PM Note Text: POST ANESTHESIA EVALUATION NOTE : 1955 Procedure Summary Date: 08/30/20 Room / Location: OR14A / [facility] OR Anesthesia Start: 1414 Anesthesia Stop: 1654 Procedure: ERCP W/ PLACEMENT ENDOSCOPIC STENT, BILIARY OR PANCREATIC DUCT, INCLUDING PRE- AND POST-DILATION AND GUIDE WIRE PASSAGE, WHEN PERFORMED, INCLUDING SPHINCTEROTOMY, WHEN PERFORMED, EACH STENT (N/A ) Diagnosis: Jaundice (Jaundice [R17]) Surgeons: Lázaro Bradley MD Responsible Provider: Rosita West MD Anesthesia Type: general ASA Status: 3 Anesthesia Type: general Last vitals Vitals Value Taken Time BP 108/71 08/31/2025 Temp 36.9 ?C (98.4 ?F) 08/31/20924 Pulse [...] August 31, 2020 TIME: 12:24 PM CSN: [id number] Normal [facility] CBC and Differentialon 08-31 Abs Baso <0.03 Normal <0.11 [facility] Abs Eosin <0.03 Normal <0.46 [facility] Abs Ada 0.43 k/uL Normal <0.87 [facility] Abs Neut 4.46 k/uL Normal 1.45-7.50 [facility] Absolute nRBC <0.01 Normal <0.01 [facility] Basophils/100 WBC (Bld) 0.2 % Normal [facility] DTYPE Auto Diff Normal [facility] Eosinophils/100 WBC (Bld) 0.0 % Normal [facility] Erythrocyte distribution width (RBC) [Ratio] 18.0 % High 11.5-15.0 [facility] Hematocrit (Bld) [Volume fraction] 28.7 % Low 39.0-51.0 [facility] Hemoglobin (Bld) [Mass/Vol] 10.4 g/dL Low 13.0-17.0 [facility] Lymphocytes (Bld) [#/Vol] 1.12 10*3/uL Normal 1.00-4.00 [facility] Lymphocytes/100 WBC (Bld) 18.6 % Normal [facility] MCH 34.1 pG High 26.0-34.0 [facility] MCHC (RBC) [Mass/Vol] 36.2 g/dL High 30.5-36.0 [facility] MCV (RBC) [Entitic vol] 94.1 fL Normal 80.0-100.0 [facility] Monocytes/100 WBC (Bld) 7.1 % Normal [facility] Neutrophils/100 WBC (Bld) 74.1 % Normal [facility] NRBCs 0.0 /100 WBC Normal 0 [facility] Platelet mean volume (Bld) [Entitic vol] 13.0 fL High 9.0-12.7 [facility] Platelets (Bld) [#/Vol] 87 10*3/uL Low 150-400 [facility] Comment on above: Result Comment: Samp le checked for a clot. RBC (Bld) [#/Vol] 3.05 10*6/uL Low 4.20-6.00 [facility] WBC (Bld) [#/Vol] 6.02 10*3/uL Normal 3.70-11.00 [facility] CONSULT PROGon 08-31-2020 CONSULT PROG HNO ID: [id number] Author: Lisseth Delaney APRN.TABLEAU ADMINISTRATOR Service: Gastroenterology Author Type: Nurse Practitioner Type: [...] Recent Labs 08/31/20 0555 08/30/20 0638 08/29/20 0523 08/28/208 08/28/20 182 WBC 6.02 7.81 8.94 < > 7.93 [...] Function, Amylase, AND Lipase Recent Labs 08/31/20 0508/30/2063708/29/20522 TPROT 4.8* 4.8* 4.9* 5.3* ALB 2.4* 2.3* 2.3* 2.6* ALT 94* 88* 89* 95* AST 150* 130* 131* 133* ALKPHOS 419* 371* 377* 344* TBILI 16.1* 15.7* 15.6* 14.8* SIGNATURE: Lisseth Delaney APRN.[facility] OFFICE: [phone] DATE: August 31, 2020 TIME: 10:27 AM [facility] Comp Metabolic Panelon 08-31 Albumin [Mass/Vol] 2.4 g/dL Low 3.9-4.9 [facility] ALP [Catalytic activity/Vol] 419 U/L High 38-113 [facility] ALT [Catalytic activity/Vol] 94 U/L High 10-54 [facility] Anion gap [Moles/Vol] 6 mmol/L Low 9-18 [facility] AST [Catalytic activity/Vol] 150 U/L High 14-40 [facility] Bilirubin [Mass/Vol] 16.1 mg/dL High 0.2-1.3 [facility] Calcium [Mass/Vol] 8.5 mg/dL Normal 8.5-10.2 [facility] Chloride [Moles/Vol] 108 mmol/L High 97-105 [facility] CO2 [Moles/Vol] 24 mmol/L Normal 22-33 [facility] Creatinine [Mass/Vol] 0.88 mg/dL Normal 0.73-1.22 [facility] Comment on above: Result Comment: Resu lt may be falsely decreased due to icteric interference. eGFR- Amer. >60 Normal [facility] eGFR-All Other Races >60 Normal [facility] Comment on above: Result Comment: eGFR [...] GFR. Glucose [Mass/Vol] 89 mg/dL Normal 74-99 [facility] Potassium [Moles/Vol] 4.3 mmol/L Normal 3.7-5.1 [facility] Protein [Mass/Vol] 4.8 g/dL Low 6.3-8.0 [facility] Sodium [Moles/Vol] 138 mmol/L Normal 136-144 [facility] Urea nitrogen [Mass/Vol] 21 mg/dL Normal 9-24 [facility] Magnesiumon 08-31-2020 Magnesium [Mass/Vol] 2.2 mg/dL Normal 1.7-2.3 [facility] NURSING PROGon 08-31-2020 NURSING PROG HNO ID: [id number] Author: Elzbieta Gonsales RN Service: ? Author Type: Registered Nurse Type: Nursing Progress Note Filed: 08/31/2020 10:30 AM Note Text: Nursing Progress Note Patient Name: Jesus Shaver Patient Location: [facility] Daily Note: 0700 assumed care [...] This note was completed by: Elzbieta Gonsales [facility] NURSING PROG HNO ID: [id number] Author: Wily Ward RN Service: ? Author Type: Registered Nurse Type: Nursing Progress Note Filed: 08/31/2020 8:13 AM Note Text: Nursing Progress Note Patient Name: Jesus Shaver Patient Location: /[facility] Daily Note: 2320: Pt in bed resting, assessed per flow sheet. Pt is jaundiced. Call light and belongings within reach and bed alarm on. Pt is MRDD and oriented to self only. 0000: Pt is asleep in bed, call light and belongings within reach and bed alarm on. This note was completed by: Wily Ward [facility] Phosphoruson 08-31-2020 Phosphate [Mass/Vol] 3.9 mg/dL Normal 2.7-4.8 [facility] THERAPY NTon 08-31-2020 THERAPY NT HNO ID: [id number] Author: Elena Rider OT/L Service: Occupational Therapy Author Type: Occupational Therapist Type: Therapy (PT/OT/Speech/Resp) Filed: 08/31/2020 9:25 AM Note Text: Occupational Therapy Evaluation SERVICE DATE: 08/31/2020 SERVICE TIME: 854 to 909 ROOM: [place] [address] Recommended Discharge Disposition: Subacute/SNF Recommended Discharge Disposition [...] charlotte lift as well. Patient Report: RN devin'lindy therapy session. Pt requires increased time for [...] and signs-other Interventions Provided: Evaluation $ Evaluation-Low (05170) Billed Units: 1 unit Training AND education provided in: Bed mobility, Benefits of in-hospital (more content not included)... Normal [facility] ANES PRE-OPon 08-30-2020 ANES PRE-OP HNO ID: [id number] Author: Rosita West MD Service: Anesthesiology Author [...] 1 tablet by mouth once daily. - umajjel-nempxpvmm-zynisji D3 (OYSTER SHELL CALCIUM-VITAMIN D) 500 mg(1,250mg) [...] August 30, 2020 TIME: 1:41 PM CSN: [id number] Normal [facility] CBC and Differentialon 08-30 Abs Baso 0.05 k/uL Normal <0.11 [facility] Abs Ada 1.40 k/uL High <0.87 [facility] Abs Neut 4.44 k/uL Normal 1.45-7.50 [facility] Absolute nRBC <0.01 Normal <0.01 [facility] Basophils/100 WBC (Bld) 0.6 % Normal [facility] DTYPE Auto Diff Normal [facility] Eosinophils (Bld) [#/Vol] 0.08 10*3/uL Normal <0.46 [facility] Eosinophils/100 WBC (Bld) 1.0 % Normal [facility] Erythrocyte distribution width (RBC) [Ratio] 16.8 % High 11.5-15.0 [facility] Hematocrit (Bld) [Volume fraction] 28.3 % Low 39.0-51.0 [facility] Hemoglobin (Bld) [Mass/Vol] 10.3 g/dL Low 13.0-17.0 [facility] Lymphocytes (Bld) [#/Vol] 1.84 10*3/uL Normal 1.00-4.00 [facility] Lymphocytes/100 WBC (Bld) 23.6 % Normal [facility] MCH 33.0 pG Normal 26.0-34.0 [facility] MCHC (RBC) [Mass/Vol] 36.4 g/dL High 30.5-36.0 [facility] MCV (RBC) [Entitic vol] 90.7 fL Normal 80.0-100.0 [facility] Monocytes/100 WBC (Bld) 17.9 % Normal [facility] Neutrophils/100 WBC (Bld) 56.9 % Normal [facility] NRBCs 0.0 /100 WBC Normal 0 [facility] Platelet mean volume (Bld) [Entitic vol] 12.8 fL High 9.0-12.7 [facility] Platelets (Bld) [#/Vol] 84 10*3/uL Low 150-400 [facility] Comment on above: Result Comment[facility]. RBC (Bld) [#/Vol] 3.12 10*6/uL Low 4.20-6.00 [facility] WBC (Bld) [#/Vol] 7.81 10*3/uL Normal 3.70-11.00 [facility] Comp Metabolic Panelon 08-30 Albumin [Mass/Vol] 2.3 g/dL Low 3.9-4.9 [facility] Comment on above: Performed By: #### H ACUTP EBVQNT ####[facility] [place], [place] [phone] ALP [Catalytic activity/Vol] 377 U/L High 38-113 [facility] Comment on above: Performed By: #### H ACUTP EBVQNT ####[facility] [place], [place] [phone] ALP [Catalytic activity/Vol] 371 U/L High 38-113 [facility] ALT [Catalytic activity/Vol] 89 U/L High 10-54 [facility] Comment on above: Performed By: #### H ACUTP EBVQNT ####[facility] [address] [place], [place] [phone] ALT [Catalytic activity/Vol] 88 U/L High 10-54 [facility] Anion gap [Moles/Vol] 10 mmol/L Normal 9-18 [facility] Comment on above: Performed By: #### H ACUTP, EBVQNT ####[address] [phone] Anion gap [Moles/Vol] 11 mmol/L Normal 9-18 [facility] AST [Catalytic activity/Vol] 131 U/L High 14-40 [facility] Comment on above: Performed By: #### H ACUTP, EBVQNT ####[place] [phone] AST [Catalytic activity/Vol] 130 U/L High 14-40 [facility] Bilirubin [Mass/Vol] 15.6 mg/dL High 0.2-1.3 [facility] Comment on above: Performed By: #### H ACUTP, EBVQNT ####[address] [phone] Bilirubin [Mass/Vol] 15.7 mg/dL High 0.2-1.3 [facility] Calcium [Mass/Vol] 8.6 mg/dL Normal 8.5-10.2 [facility] Comment on above: Performed By: #### H ACUTP, EBVQNT ####[address] [phone] Calcium [Mass/Vol] 8.5 mg/dL Normal 8.5-10.2 [facility] Chloride [Moles/Vol] 104 mmol/L Normal 97-105 [facility] Comment on above: Performed By: #### H ACUTP, EBVQNT ####[address] [phone] Chloride [Moles/Vol] 103 mmol/L Normal 97-105 [facility] CO2 [Moles/Vol] 23 mmol/L Normal 22-33 [facility] Comment on above: Performed By: #### H MALISSA EBVQNT ####[facility], [place] [phone] Creatinine [Mass/Vol] 0.92 mg/dL Normal 0.73-1.22 [facility] Comment on above: Result Comment: Resu lt may be falsely decreased due to icteric interference. Performed By: #### H MALISSA EBVQNT ####[facility] [phone] eGFR- Amer. >60 Normal [facility] Comment on above: Performed By: #### Malka LEONARDO EBVQNT ####[place] [address] [address], [place] [phone] eGFR-All Other Races >60 Normal [facility] Comment on above: Result Comment: eGFR [...] accurately reflect actual GFR. Performed By: #### Malka CAMPOP EBVQNT ####[facility] [address], [place] [phone] Glucose [Mass/Vol] 92 mg/dL Normal 74-99 [facility] Comment on above: Performed By: #### Malka LEONARDO EBVQNT ####[facility], [place] [phone] Potassium [Moles/Vol] 3.1 mmol/L Low 3.7-5.1 [facility] Comment on above: Performed By: #### Malka LEONARDO EBVQNT ####[facility], [place] [phone] Protein [Mass/Vol] 4.9 g/dL Low 6.3-8.0 [facility] Comment on above: Performed By: #### H ACUTP, EBVQNT ####[address] [phone] Protein [Mass/Vol] 4.8 g/dL Low 6.3-8.0 [facility] Sodium [Moles/Vol] 137 mmol/L Normal 136-144 [facility] Comment on above: Performed By: #### H ACUTP, EBVQNT ####[place] [phone] Urea nitrogen [Mass/Vol] 17 mg/dL Normal 9-24 [facility] Comment on above: Performed By: #### H ACUTP, EBVQNT ####[place] [phone] EBV by PCR Quanton 1 EBV DNA, Quant Not detected Normal [facility] Comment on above: Result Comment: Refe rence Range: Negative for EBV DNA The Linear Range of this assay is 500 IU/mL to 1,000,000 IU/mL (2.70 log IU/mL to 6.00 log IU/mL). This test was developed and its performance characteristics determined by [facility]'s [facility] [place] ([facility]). It has not been cleared or approved by the FDA. [facility] is regulated under CLIA as qualified to perform high complexity testing. This test is used for clinical purposes. It should not be regarded as investigational or for research. Performed By: #### H ACUTP, EBVQNT ####[address] [phone] Hepatitis Acute Panel * OUTS [place] CLIENTS ONLY *on 08-30-2020 HBsAg Negative Normal Negative [facility] Comment on above: Performed By: #### H ACUTP EBVQNT ####[place] [phone] Hep B Core Ab, IgM Negative Normal Negative [facility] Comment on above: Performed By: #### H ACUTP, EBVQNT ####[facility] [place], [place] [phone] Hepatitis A Ab IgM Negative Normal Negative [facility] Comment on above: Performed By: #### H ACUTP, EBVQNT ####[facility] [place] [phone] Hepatitis C Ab IA Negative Normal Negative [facility] Comment on above: Performed By: #### H ACUTP, EBVQNT ####[place] [id number] [place], [place] [phone] Magnesiumon 08-30-2020 Magnesium [Mass/Vol] 2.0 mg/dL Normal 1.7-2.3 [facility] Ada Slide Teston 08-30-2020 Ada Slide Test Negative Normal Negative [facility] Comment on above: Performed By: #### H ACUTP, EBVQNT ####[place] [id number] [place] [phone] NURSING PROGon 08-30-2020 NURSING PROG HNO ID: [id number] Author: Arely Calle RN Service: Nursing Author Type: Registered Nurse Type: Nursing Progress Note Filed: 08/30/2020 6:09 PM Note Text: Nursing Progress Note Patient Name: Jesus Shaver Patient Location: [facility] OR POOL/[facility] OR POOL Daily Note: 1651-pt arrived in PACU not c/o any pain or nausea. 1753- spoke with Dr. cShneider, received orders for 500 cc bolus d/t BP of 98/56 1800- gave report to Elijah PAINTER This note was completed by: Arely Calle [facility] NURSING PROG HNO ID: [id number] Author: Mary Quinteros RN Service: ? Author Type: Registered Nurse Type: Nursing Progress Note Filed: 08/30/2020 12:56 PM Note Text: Nursing Progress Note Patient Name: Jesus Shaver Patient Location: [place] [address]/[facility] Daily Note: 1000 Assumed care of patient. Assessment completed and charted. Pt resting in bed, no s/s of pain or discomfort. Will monitor. 1255 Patient left unit for ERCP. This note was completed by: Mary Quinteros [facility] Phosphoruson 08-30-2020 Phosphate [Mass/Vol] 3.1 mg/dL Normal 2.7-4.8 [facility] THERAPY NTon 08-30-2020 THERAPY NT HNO ID: [id number] Author: Elena Rider OT/L Service: Occupational Therapy Author Type: Occupational Therapist Type: Therapy (PT/OT/Speech/Resp) Filed: 08/30/2020 1:17 PM Note Text: OCCUPATIONAL THERAPY MISSED VISIT SERVICE DATE: 08/30/2020 SERVICE TIME: 1315 to 1315 ROOM: [facility] () Attempted Evaluation. Patient not seen due to Test/Procedure. Pt off the floor for ERCP. Will re-attempt as OT schedule permits. SIGNATURE: Elena Rider OT/L PATIENT NAME: Jesus Shaver DATE: August 30, 2020 TIME: 1:16 PM [facility] THERAPY NT HNO ID: [id number] Author: Chantell Elena PT Service: Physical Therapy Author Type: Physical Therapist Type: Therapy (PT/OT/Speech/Resp) Filed: 08/30/2020 12:50 PM Note Text: Physical Therapy Evaluation SERVICE DATE: 08/30/2020 SERVICE TIME: 0830 to 0900 ROOM: [place] [address] Recommended Discharge Disposition: Home PT (vs SNF ) Recommended Discharge Disposition Comments: not sure of pt's baseline for functional mobility. Per previous notes - appears pt uses w/c or walker for mobility with assist of staff. If [facility] can manage pt's needs, then pt would [...] are identified (more content not included)... Normal [facility] XR ERCP READ ONLYon 08-31-19 XR [...] Aug 30 2020 5:41PM EST [id number] Normal [facility] CBC and Differentialon 08-29 Abs Baso 0.09 k/uL Normal <0.11 [facility] Abs Ada 1.33 k/uL High <0.87 [facility] Abs Neut 4.77 k/uL Normal 1.45-7.50 [facility] Absolute nRBC <0.01 Normal <0.01 [facility] Basophils/100 WBC (Bld) 1.0 % Normal [facility] DTYPE Auto Diff Normal [facility] Eosinophils (Bld) [#/Vol] 0.12 10*3/uL Normal <0.46 [facility] Eosinophils/100 WBC (Bld) 1.3 % Normal [facility] Erythrocyte distribution width (RBC) [Ratio] 16.5 % High 11.5-15.0 [facility] Hematocrit (Bld) [Volume fraction] 31.3 % Low 39.0-51.0 [facility] Hemoglobin (Bld) [Mass/Vol] 11.5 g/dL Low 13.0-17.0 [facility] Lymphocytes (Bld) [#/Vol] 2.63 10*3/uL Normal 1.00-4.00 [facility] Lymphocytes/100 WBC (Bld) 29.4 % Normal [facility] MCH 33.9 pG Normal 26.0-34.0 [facility] MCHC (RBC) [Mass/Vol] 36.7 g/dL High 30.5-36.0 [facility] MCV (RBC) [Entitic vol] 92.3 fL Normal 80.0-100.0 [facility] Monocytes/100 WBC (Bld) 14.9 % [facility] Neutrophils/100 WBC (Bld) 53.4 % [facility] NRBCs 0.0 /100 WBC Normal 0 [facility] Platelet mean volume (Bld) [Entitic vol] 11.5 fL Normal 9.0-12.7 [facility] Platelets (Bld) [#/Vol] 79 10*3/uL Low 150-400 [facility] Comment on above: Result Comment: Samp le checked for a clot. RBC (Bld) [#/Vol] 3.39 10*6/uL Low 4.20-6.00 [facility] WBC (Bld) [#/Vol] 8.94 10*3/uL Normal 3.70-11.00 [facility] CONSULTon 08-29-2020 CONSULT HNO ID: [id number] Author: Venkatesh Torres MD Service: Gastroenterology Author [...] Time: 08/27/2020 10:35 Other Result Text Alexei, Glenn [facility] 10:39 AM EDT Patient Name: ?JESUS SHAVER MRN: ? [id number] Results for EPIFANIO SHAVER ( ) as [...] Take 1 tablet by mouth once daily. eopslkt-wakmfrbox-sszhxcr D3 (OYSTER SHELL CALCIUM-VITAMIN D) 500 mg(1,250mg) [...] for Constipation. Not (more content not included)... [facility] CONSULT PROGon 08-29-2020 CONSULT PROG HNO ID: [id number] Author: Venkatesh Torres MD Service: Gastroenterology Author Type: Physician Type: Consult Progress Note Filed: 08/29/2020 3:08 PM Note Text: GI staff CBD stone and dilation on CT Jaundice. Biopsy proven cirrhosis Normal WBC No fever No pain on exam Patient does not appear consentable (MRDD history). Master Pilot number anna barretoy I spoke with primary service, no family [...] past that consented for a different procedure: [phone] justina olmos. Will try this for consent [facility] CT ABD/PEL W IVCONon 021 CT ABD/PEL W IVCON * * *Final Report* * * DATE OF EXAM: Aug 29 2020 1:52PM [facility] - CT ABD/PEL W IVCON / [...] likely remote Lower thorax: Minor bibasilar atelectasis. Videogame Designer (topogram) images: No additional findings. IMPRESSION: Mild [...] Aug 29 2020 2:19PM EST [id number] Normal [facility] Comp Metabolic Panelon 08-29 Albumin [Mass/Vol] 2.6 g/dL Low 3.9-4.9 [facility] ALP [Catalytic activity/Vol] 344 U/L High 38-113 [facility] ALT [Catalytic activity/Vol] 95 U/L High 10-54 [facility] Anion gap [Moles/Vol] 11 mmol/L Normal 9-18 [facility] AST [Catalytic activity/Vol] 133 U/L High 14-40 [facility] Bilirubin [Mass/Vol] 14.8 mg/dL High 0.2-1.3 [facility] Calcium [Mass/Vol] 8.9 mg/dL Normal 8.5-10.2 [facility] Chloride [Moles/Vol] 102 mmol/L Normal 97-105 [facility] CO2 [Moles/Vol] 22 mmol/L Normal 22-33 [facility] Creatinine [Mass/Vol] 0.82 mg/dL Normal 0.73-1.22 [facility] Comment on above: Result Comment: Resu lt may be falsely decreased due to icteric interference. eGFR- Amer. >60 Normal [facility] eGFR-All Other Races >60 Normal [facility] Comment on above: Result Comment: eGFR [...] GFR. Glucose [Mass/Vol] 76 mg/dL Normal 74-99 [facility] Potassium [Moles/Vol] 3.4 mmol/L Low 3.7-5.1 [facility] Protein [Mass/Vol] 5.3 g/dL Low 6.3-8.0 [facility] Sodium [Moles/Vol] 135 mmol/L Low 136-144 [facility] Urea nitrogen [Mass/Vol] 17 mg/dL Normal 9-24 [facility] NURSING PROGon 08-29-2020 NURSING PROG HNO ID: [id number] Author: Suad Rider RN Service: ? Author Type: Registered Nurse Type: Nursing Progress Note Filed: 08/29/2020 8:00 PM Note Text: Nursing Progress Note Patient Name: Jesus Shaver [facility] Daily Note: Assessment completed. Pt resting in bed, offers no complaints, denies pain. Vitals stable. External cath draining danilo. Rick light in reach. Bed alarm on. Will monitor. This note was completed by: Suad Rider [facility] NURSING PROG HNO ID: [id number] Author: Bia Simpson RN Service: Nursing Author Type: Registered Nurse Type: Nursing Progress Note Filed: 08/29/2020 1:10 AM Note Text: Nursing Progress Note Patient Name: Jesus Shaver [facility] Daily Note:0022: Assumed care of patient. Assessment complete. IV intact and patent. Pt denies pain, no other needs present. Safety maintained. This note was completed by: Bia Simpson [facility] NURSING PROG HNO ID: [id number] Author: Aniceto Ewing RN Service: Nursing Author Type: Registered Nurse Type: Nursing Progress Note Filed: 08/28/2020 10:42 PM Note Text: Nursing Progress Note Patient Name: Jesus Shaver Patient Location: [place] [address] Daily Note: 1900 Assumed care of pt. [...] This note was completed by: Aniceto Ewing [facility] THERAPY NTon 08-29-2020 THERAPY NT HNO ID: [id number] Author: Christopher Crawford PT Service: Physical Therapy Author Type: Physical Therapist Type: Therapy (PT/OT/Speech/Resp) Filed: 08/29/2020 12:22 PM Note Text: PHYSICAL THERAPY MISSED VISIT SERVICE DATE: 08/29/2020 SERVICE TIME: 1215 to 1215 ROOM: [place] [address] Attempted Evaluation. Patient not seen due to Test/Procedure - per nursing. SIGNATURE: Christopher Crawford PT PATIENT NAME: Jesus Shaver DATE: August 29, 2020 TIME: 12:22 PM [facility] ALLIED HEALTHon 08-28-2020 ALLIED HEALTH HNO ID: [id number] Author: Regina Georges RT(R) Service: ? Author Type: Lot Worker Type: Allied Health Filed: 08/28/2020 8:13 PM [...] PERIPHERAL IV DATA: Not applicable SIGNED BY: Regina Georges RT(R) August 28, 2020 8:13 PM Normal [facility] CBC and Differentialon 08-28 Abs Baso 0.05 k/uL Normal <0.11 [facility] Abs Ada 1.30 k/uL High <0.87 [facility] Abs Neut 4.63 k/uL Normal 1.45-7.50 [facility] Absolute nRBC <0.01 Normal <0.01 [facility] Basophils/100 WBC (Bld) 0.6 % Normal [facility] DTYPE Auto Diff Normal [facility] Eosinophils (Bld) [#/Vol] 0.11 10*3/uL Normal <0.46 [facility] Eosinophils/100 WBC (Bld) 1.4 % Normal [facility] Erythrocyte distribution width (RBC) [Ratio] 16.3 % High 11.5-15.0 [facility] Hematocrit (Bld) [Volume fraction] 32.7 % Low 39.0-51.0 [facility] Hemoglobin (Bld) [Mass/Vol] 11.8 g/dL Low 13.0-17.0 [facility] Lymphocytes (Bld) [#/Vol] 1.84 10*3/uL Normal 1.00-4.00 [facility] Lymphocytes/100 WBC (Bld) 23.2 % Normal [facility] MCH 33.3 pG Normal 26.0-34.0 [facility] MCHC (RBC) [Mass/Vol] 36.1 g/dL High 30.5-36.0 [facility] MCV (RBC) [Entitic vol] 92.4 fL Normal 80.0-100.0 [facility] Monocytes/100 WBC (Bld) 16.4 % Normal [facility] Neutrophils/100 WBC (Bld) 58.4 % Normal [facility] NRBCs 0.0 /100 WBC Normal 0 [facility] Platelet mean volume (Bld) [Entitic vol] 12.0 fL Normal 9.0-12.7 [facility] Platelets (Bld) [#/Vol] 79 10*3/uL Low 150-400 [facility] Comment on above: Result Comment: [facility] le checked for a clot. RBC (Bld) [#/Vol] 3.54 10*6/uL Low 4.20-6.00 [facility] WBC (Bld) [#/Vol] 7.93 10*3/uL Normal 3.70-11.00 [facility] COVID 19 NPon 08-28-2020 SARS-CoV-2 (COVID-19) RNA AURY+probe Ql (Unsp spec) UPPER RESPIRATORY TRACT SWAB Normal [facility] Comment on above: Performed By: #### C OVDNP ####[facility] [address] [place], [place] [phone] SARS-CoV-2 (COVID-19) RNA AURY+probe Ql (Unsp spec) Negative for COVID19 (SARS CoV2) by RT-PCR or equivalent method. Normal Negative for COVID19 (SARS CoV2) by RT-PCR or equivalent method. [facility] Comment on above: Result Comment: This test was developed and its performance characteristics determined by [facility] [place]. This test has been authorized by FDA under an Emergency Use Authorization (EUA). This test has been validated in accordance with the FDA's Guidance Document "Policy for Diagnostics Testing in Laboratories Certified to Perform High Complexity Testing under CLIA prior to Emergency use Authorization for Coronavirus Disease 2019 during the Public Health Emergency" issued on June 21, 2019. Test performed by [facility], [facility] [place], [address], [place] [address]. Performed By: #### C OVDNP ####[facility] [address] [place], [place] [phone] Comp Metabolic Panelon 08-28 Albumin [Mass/Vol] 2.7 g/dL Low 3.9-4.9 [facility] ALP [Catalytic activity/Vol] 336 U/L High 38-113 [facility] ALT [Catalytic activity/Vol] 100 U/L High 10-54 [facility] Anion gap [Moles/Vol] 9 mmol/L Normal 9-18 [facility] AST [Catalytic activity/Vol] 129 U/L High 14-40 [facility] Bilirubin [Mass/Vol] 14.8 mg/dL High 0.2-1.3 [facility] Calcium [Mass/Vol] 9.3 mg/dL Normal 8.5-10.2 [facility] Chloride [Moles/Vol] 104 mmol/L Normal 97-105 [facility] CO2 [Moles/Vol] 27 mmol/L Normal 22-33 [facility] Creatinine [Mass/Vol] 0.88 mg/dL Normal 0.73-1.22 [facility] Comment on above: Result Comment: Resu lt may be falsely decreased due to icteric interference. eGFR- Amer. >60 Normal [facility] eGFR-All Other Races >60 Normal [facility] Comment on above: Result Comment: eGFR [...] GFR. Glucose [Mass/Vol] 82 mg/dL Normal 74-99 [facility] Potassium [Moles/Vol] 3.4 mmol/L Low 3.7-5.1 [facility] Protein [Mass/Vol] 5.5 g/dL Low 6.3-8.0 [facility] Sodium [Moles/Vol] 140 mmol/L Normal 136-144 [facility] Urea nitrogen [Mass/Vol] 19 mg/dL Normal 9-24 [facility] Comp Panel with Mg Reflexon 08-28-2020 Potassium [Moles/Vol] 3.7 mmol/L Normal 3.5-5.[address] [facility] Comment on above: Performed By: #### C MP3M ####[employer], [place] ALP [Catalytic activity/Vol] 332 U/L High 38-126 [facility] Comment on above: Performed By: #### C MP3M ####[employer], [place] ALT [Catalytic activity/Vol] 136 U/L High 0-49 [facility] Comment on above: Result Comment: The ALT test is performed by an updated assay method. Please note that the reference intervals have been changed and are now sex specific. Performed By: #### C MP3M ####[employer], [place] Calcium [Mass/Vol] 9.7 mg/dL Normal 8.4-10.4 [facility] Comment on above: Performed By: #### C MP3M ####[facility], [place] Glucose [Mass/Vol] 87 mg/dL Normal 70-100 [facility] Comment on above: Performed By: #### C MP3M ####[employer], [place] Urea nitrogen [Mass/Vol] 20 mg/dL Normal 7-20 [facility] Comment on above: Performed By: #### C MP3M ####[facility], [place] Anion gap [Moles/Vol] 9 mmol/L Normal 3-[address] [facility] Comment on above: Performed By: #### C MP3M ####[facility], [place] AST [Catalytic activity/Vol] 170 U/L High 15-46 [facility] Comment on above: Performed By: #### C MP3M ####[facility] [place] [address] Bilirubin [Mass/Vol] 15.5 mg/dL High 0.2-1.3 [facility] Comment on above: Performed By: #### C MP3M ####[facility] [place] [address] CO2 [Moles/Vol] 26 mmol/L Normal 22-30 [facility] Comment on above: Performed By: #### C MP3M ####[facility] [place] [address] Creatinine [Mass/Vol] 0.92 mg/dL Normal 0.52-1.[address] [facility] Comment on above: Performed By: #### C MP3M ####[id number] [place] [address] GFR/1.73 sq M.predicted among blacks MDRD (S/P/Bld) [Vol rate/Area] mL/min/{1.73_m2} Normal >60 [facility] Comment on above: Performed By: #### C MP3M ####[facility] [place] [address] GFR/1.73 sq M.predicted among non-blacks MDRD (S/P/Bld) [Vol rate/Area] 87.5 mL/min/{1.73_m2} Normal >60 [facility] Comment on above: Result Comment: KDIG [...] creatinine secretion. Performed By: #### C MP3M ####[facility] [id number] [place], [place] Protein [Mass/Vol] 7.0 g/dL Normal 6.3-8.2 [facility] Comment on above: Performed By: #### C MP3M ####[facility] [address] [place], [place] Chloride [Moles/Vol] 105 mmol/L Normal 98-107 [facility] Comment on above: Performed By: #### C MP3M ####[facility] [id number] [place], [place] Sodium [Moles/Vol] 140 mmol/L Normal 135-145 [facility] Comment on above: Performed By: #### C MP3M ####[facility] [id number] [place], [place] Albumin [Mass/Vol] 3.4 g/dL Low 3.5-5.0 [facility] Comment on above: Performed By: #### C MP3M ####[facility] [id number] [place], [place] Comprehensive Metabolic Pane l w/ Reflex to MGOrdered By: Donaldo Jeffers on 08-28-2020 Albumin [Mass/Vol] 3.4 g/dL Low 3.5 - 5.0 g/dL [facility] Work Phone: ALP (Bld) [Catalytic activity/Vol] 332 U/L High 38 - 126 U/L [facility] Work Phone: ALT [Catalytic activity/Vol] 136 U/L High 0 - 49 U/L [facility] Work Phone: Comment on above: The ALT test is perf ormed by an updated assay method. Please note that the reference intervals have been changed and are now sex specific. Anion gap [Moles/Vol] 9 mmol/L 3 - 13 mmol/L [facility] Work Phone: AST [Catalytic activity/Vol] 170 U/L High 15 - 46 U/L [facility] Work Phone: [phone] Bilirubin [Mass/Vol] 15.5 mg/dL High 0.2 - 1 .3 mg/dL [facility] Work Phone: [phone] Calcium [Mass/Vol] 9.7 mg/dL 8.4 - 10. 4 mg/dL [facility] Work Phone: [phone] Chloride [Moles/Vol] 105 mmol/L 98 - 10 7 mmol/L [facility] Work Phone: [phone] CO2 [Moles/Vol] 26 mmol/L 22 - 30 mmol/L [facility] Work Phone: [phone] Creatinine [Mass/Vol] 0.92 mg/dL 0.52 - 1.25 mg/dL [facility] Work Phone: [phone] EGFR IF [place] 87.5 mL/min >60 [facility] Work Phone: [phone] Comment on above: KDIGO guidelines pro [...] fraction] 7.0 g/dL 6.3 - 8.2 g/dL [facility] Work Phone: [phone] GFR/1.73 sq M.predicted among blacks MDRD (S/P/Bld) [Vol rate/Area] mL/min/{1.73_m2} >60 mL/min [facility] Work Phone: [phone] Glucose [Mass/Vol] 87 mg/dL 70 - 100 mg/dL [facility] Work Phone: Interpretation and review of laboratory results Abnormal [facility] Work Phone: Potassium [Moles/Vol] 3.7 mmol/L 3.5 - 5.1 mmol/L [facility] Work Phone: Sodium [Moles/Vol] 140 mmol/L 135 - 145 mmol/L [facility] Work Phone: Urea nitrogen (BldV) [Mass/Vol] 20 mg/dL 7 - 20 mg/dL [facility] Work Phone: Test Performed by [facility], [address] [place] [address] [facility] Work Phone: HISTORY PHYSICALon HISTORY PHYSICAL HNO ID: [id number] Author: Corona Dangelo MD Service: ? Author Type: Physician Type: HANDP Filed: 08/28/2020 8:03 PM Note Text: DEPARTMENT OF HOSPITAL MEDICINE HISTORY AND PHYSICAL EXAM SERVICE DATE: 08/28/2020 Code Status: Not on file SERVICE TIME: 7:34 PM Primary Care Physician: Jesus Mills MD NIGHT AND WEEKEND COVERAGE: [facility] COVERAGE: Patient admitted to internal medicine From 0700 - 1630, please contact pager primary for patient issues. From 1630 - 0700, please contact the Night Hospitalist on pager [phone] for patient issues. Subjective CHIEF COMPLAINT: Jaundice and abdominal pain HPI: This is a 65 year old male who presents with jaundice and abdominal pain. History is obtained from online records as patient has a history of MRDD and is a poor historian. He presented to [facility] with Jaundice and abdominal pain. He [...] once daily., Disp: 30 tablet, Rfl: 5 ygapkjd-vjfdudqqq-dsiueqs D3 (OYSTER SHELL CALCIUM-VITAMIN D) 500 mg(1,250mg) [...] EXTREMITIES: Extremi (more content not included)... Normal [facility] NURSING PROGon 08-28-2020 NURSING PROG HNO ID: [id number] Author: Lubna Vaz, INOCENCIO Service: ? Author Type: Registered Nurse Type: Nursing Progress Note Filed: 08/28/2020 6:16 PM Note Text: Nursing Progress Note Patient Name: Jesus Shaver [facility] Daily Note: The patient understands simple instruction. Using the call light his self. Moves his upper extremity not his lower extremities. The Hospitalist. will be up to write orders. This note was completed by: Audra Vaz Normal [facility] Protimeon 08-28-2020 PT INR 1.4 High 0.9-1.3 [facility] Comment on above: Result Comment: Rocio min K Antagonist (VKA) Therapeutic Range: INR 2 to 3 (Target INR of 2.5) Note: For patients treated with VKA drugs, such as warfarin, the [employer] [employer] 2012 Guideline recommends [...] Chest 2012, 141:7S-47S Jermaine RA, et al. [facility] 2017, 70: 252-289 PT Sec 14.6 sec High 9.7-13.0 [facility] Valproic Acidon 08-28-2020 Valproic Acid 70.5 ug/mL Normal 50-100 [facility] Comment on above: Result Comment: Refe [...] Aug 28 2020 8:31PM EST [id number] Normal [facility] COVID-19Ordered By: Todd Hyatt on 08-27-2020 SARS-CoV-2 (COVID-19) RNA AURY+probe Ql (Unsp spec) Not detected Not Detected [facility] Work Phone: Comment on above: Not Detected. Expected Result: Not Detected _ Real-time, RT-PCR performed on the [employer] System by the [facility] Microbiology Service Negative results do not preclude SARS-CoV-2 infection and should not be used as the sole basis for treatment or other patient management decisions. This assay was developed by [employer] and [employer] and distributed under an Emergency Use Authorization (EUA) granted by the FDA for the qualitative detection of SARS-CoV-2 nucleic acid. Provider and patient fact sheets can be found at https://www.fda.gov/media/600869/download and https://www.fda.gov/media/748785/download. Test Performed by [facility], [facility] [place] [address] Comp Panel with Mg Reflexon 08-27-2020 Calcium [Mass/Vol] 9.4 mg/dL Normal 8.4-10.4 [facility] Comment on above: Performed By: #### C MP3M ####[facility] [id number] [place] [address] ALP [Catalytic activity/Vol] 223 U/L High 38-126 [facility] Comment on above: Performed By: #### C MP3M ####[facility] [id number] [place], [place] ALT [Catalytic activity/Vol] 125 U/L High 0-49 [facility] Comment on above: Result Comment: The ALT test is performed by an updated assay method. Please note that the reference intervals have been changed and are now sex specific. Performed By: #### C MP3M ####[facility] [facility] [address], [place] Anion gap [Moles/Vol] 7 mmol/L Normal 3-[address] [facility] Comment on above: Performed By: #### C MP3M ####[place] [address] [facility] [place] AST [Catalytic activity/Vol] 159 U/L High 15-46 [facility] Comment on above: Performed By: #### C MP3M ####[place] [address] [facility] [address] [address], [place] Bilirubin [Mass/Vol] 10.5 mg/dL High 0.2-1.3 [facility] Comment on above: Performed By: #### C MP3M ####[place] [address] [facility] [place] CO2 [Moles/Vol] 25 mmol/L Normal 22-30 [facility] Comment on above: Performed By: #### C MP3M ####[place] [address] [facility] [place] Glucose [Mass/Vol] 82 mg/dL Normal 70-100 [facility] Comment on above: Performed By: #### C MP3M ####[place] [address] [facility] [address], [place] Protein [Mass/Vol] 6.0 g/dL Low 6.3-8.2 [facility] Comment on above: Performed By: #### C MP3M ####[place] [address] [facility] [address] [address], [place] Urea nitrogen [Mass/Vol] 22 mg/dL High 7-20 [facility] Comment on above: Performed By: #### C MP3M ####[place] [address] [facility] [place] Creatinine [Mass/Vol] 0.92 mg/dL Normal 0.52-1.[address] [facility] Comment on above: Performed By: #### C MP3M ####[address] [place], [place] GFR/1.73 sq M.predicted among blacks MDRD (S/P/Bld) [Vol rate/Area] mL/min/{1.73_m2} Normal >60 [facility] Comment on above: Performed By: #### C MP3M ####[address] [place], [place] GFR/1.73 sq M.predicted among non-blacks MDRD (S/P/Bld) [Vol rate/Area] 87.5 mL/min/{1.73_m2} Normal >60 [facility] Comment on above: Result Comment: KDIG [...] creatinine secretion. Performed By: #### C MP3M ####[address] [place], [place] Albumin [Mass/Vol] 3.0 g/dL Low 3.5-5.0 [facility] Comment on above: Performed By: #### C MP3M ####[place] [place], [place] Chloride [Moles/Vol] 109 mmol/L High 98-107 [facility] Comment on above: Performed By: #### C MP3M ####[facility] [place] [address] Potassium [Moles/Vol] 4.3 mmol/L Normal 3.5-5.[address] [facility] Comment on above: Performed By: #### C MP3M ####[facility] [place] [address] Sodium [Moles/Vol] 141 mmol/L Normal 135-145 [facility] Comment on above: Performed By: #### C MP3M ####[facility] [place] [address] Comprehensive Metabolic Pane l w/ Reflex to MGOrdered By: Donaldo Jeffers on 08-27-2020 Albumin [Mass/Vol] 3.0 g/dL Low 3.5 - 5.0 g/dL [employer] Work Phone: [phone] ALP (Bld) [Catalytic activity/Vol] 223 U/L High 38 - 126 U/L [employer] Work Phone: [phone] ALT [Catalytic activity/Vol] 125 U/L High 0 - 49 U/L [employer] Work Phone: [phone] Comment on above: The ALT test is perf ormed by an updated assay method. Please note that the reference intervals have been changed and are now sex specific. Anion gap [Moles/Vol] 7 mmol/L 3 - 13 mmol/L [employer] Phone: [phone] AST [Catalytic activity/Vol] 159 U/L High 15 - 46 U/L [facility] Work Phone: [phone] Bilirubin [Mass/Vol] 10.5 mg/dL High 0.2 - 1 .3 mg/dL [facility] Work Phone: [phone] Calcium [Mass/Vol] 9.4 mg/dL 8.4 - 10. 4 mg/dL [facility] Work Phone: [phone] Chloride [Moles/Vol] 109 mmol/L High 98 - 10 7 mmol/L [facility] Work Phone: [phone] CO2 [Moles/Vol] 25 mmol/L 22 - 30 mmol/L [facility] Work Phone: [phone] Creatinine [Mass/Vol] 0.92 mg/dL 0.52 - 1.25 mg/dL [facility] Work Phone: 1 EGFR IF NonAfrican [place] 87.5 mL/min >60 [facility] Work Phone: Comment on above: KDIGO guidelines pro vide [...] 6.0 g/dL Low 6.3 - 8.2 g/dL [facility] Work Phone: 1 GFR/1.73 sq M.predicted among blacks MDRD (S/P/Bld) [Vol rate/Area] mL/min/{1.73_m2} >60 mL/min [facility] Work Phone: Glucose [Mass/Vol] 82 mg/dL 70 - 100 mg/dL [facility] Work Phone: Interpretation and review of laboratory results Abnormal [facility] Work Phone: Potassium [Moles/Vol] 4.3 mmol/L 3.5 - 5.1 mmol/L [facility] Work Phone: [phone] Sodium [Moles/Vol] 141 mmol/L 135 - 145 mmol/L [facility] Work Phone: Urea nitrogen (BldV) [Mass/Vol] 22 mg/dL High 7 - 20 mg/dL [facility] Work Phone: [phone] Test Performed by [address] [address] [facility] Work Phone: [id number] 08-27-2020 SARS-CoV-2 (COVID-19) RNA AURY+probe Ql (Unsp spec) SARS-CoV-2 --> Status: F Not Detected. Expected Result: Not Detected _ Real-time, RT-PCR performed on the [employer] System by the [facility] [employer] Negative results do not preclude SARS-CoV-2 infection and should not be used as the sole basis for treatment or other patient management decisions. This assay was developed by [employer] and distributed under an Emergency Use Authorization (EUA) granted by the [facility] for the qualitative detection of SARS-CoV-2 nucleic acid. Provider and patient fact sheets can be found at https://www.fda.gov/media/ 208018/download and https://www.fda.gov/media/ 436681/download. Expected Result: Not Detected _ Real-time, RT-PCR performed on the [employer] System by the [facility] [employer] [facility] Negative results do not preclude SARS-CoV-2 infection and should not be used as the sole basis for treatment or other patient management decisions. This assay was developed by [employer] and distributed under an Emergency Use Authorization (EUA) granted by the FDA for the qualitative detection of SARS-CoV-2 nucleic acid. Provider and patient fact sheets can be found at https://www.fda.gov/media/ 553455/download and https://www.fda.gov/media/ 151458/download. Normal [facility] Comment on above: Performed By: #### C OVID ####[facility] [id number] [place] [address] US ABDOMEN LIMITED Specify o rgan? GALLBLADDER, LIVEROrdered By: Albino Lazo on 08-27-2020 Patient Name: JESUS GARRIDO Ultrasound ACCESSION EXAM DATE/TIME PROCEDURE ORDERING PROVIDER [id number] 08/27/2020 10:28 EDT US Abdomen Limited [id number] ALBINO CHIU CPT code 33809 Reason For Exam (US Abdomen Limited) jaundice [...] Phone: Alexei, [facility] Incoming Radiology Results From [facility] - 08/27/2020 10:39 AM EDT Patient Name: JESUS SHAVER Ultrasound ACCESSION EXAM DATE/TIME PROCEDURE ORDERING PROVIDER [id number] 08/27/2020 10:28 EDT US Abdomen Limited [id number] -ALBINO LAZO CPT code 14290 Reason For Exam (US Abdomen Limited) jaundice [...] 10:35 [facility] Work Phone: US Abdomen Limitedon 021 US Abdomen Limited Patient Name: JESUS GARRIDO Ultrasound ACCESSION EXAM DATE/TIME PROCEDURE ORDERING PROVIDER [id number] 08/27/2020 10:28 EDT US Abdomen Limited [id number] ALBINO CHIU CPT code 62598 Reason For Exam (US Abdomen Limited) jaundice [...] Transcribed Date and Time: 08/27/2020 10:35 Normal [facility] US DOPPLER ABD/PEL/RETRO/LMT DOrdered By: Albino Lazo on 08-27-2020 Patient Name: JESUS GARRIDO Ultrasound ACCESSION EXAM DATE/TIME PROCEDURE ORDERING PROVIDER [id number] 08/27/2020 10:28 EDT US Art/Vein Abd/Pelvis/ [id number] -ALBINO LAZO Scrotal Complete CPT code 42739 Reason For Exam (US Art/Vein Abd/Pelvis/Scrotal Complete) [...] ALFRED Transcribed Date and Time: 08/27/2020 2:20 [facility] Work Phone: [facility] Incoming Radiology Results From [facility] - 08/27/2020 2:22 PM EDT Patient Name: JESUS SHAVER Ultrasound ACCESSION EXAM DATE/TIME PROCEDURE ORDERING PROVIDER [id number] 08/27/2020 10:28 EDT US Art/Vein Abd/Pelvis/ [id number] ALBINO CHIU Scrotal Complete CPT code 02862 Reason For Exam (US Art/Vein Abd/Pelvis/Scrotal Complete) [...] ALFRED Transcribed Date and Time: 08/27/2020 2:20 [facility] Work Phone: US Liver Doppleron US Liver Doppler Patient Name: JESUS GARRIDO Ultrasound ACCESSION EXAM DATE/TIME PROCEDURE ORDERING PROVIDER [id number] 08/27/2020 10:28 EDT US Art/Vein Abd/Pelvis/ [id number] -ALBINO LAZO Scrotal Complete CPT code 56421 Reason For Exam (US Art/Vein Abd/Pelvis/Scrotal Complete) [...] Transcribed Date and Time: 08/27/2020 2:20 Normal [facility] APTTon 08-26-2020 aPTT Coag (Bld) [Time] 27.9 s Normal 20.0-30.5 [facility] Comment on above: Result Comment: NOTE : The therapeutic time for Heparin anticoagulation, based on Xa activity inhibition, is an APTT of 46-80 seconds. Performed By: Anna### A PTT, CMP3M, NH33, PT, BILD3, HEMOG #### [facility] [address] [place], [place] APTTOrdered By: Donaldo Jeffers on 08-26-2020 aPTT Coag (Bld) [Time] 27.9 s 20.0 - 30.5 s [facility] Work Phone: Comment on above: NOTE: The therapeuti c time for Heparin anticoagulation, based on Xa activity inhibition, is an APTT of 46-80 seconds. Add On Lab TestOrdered By: Laurita Lazo on 08-26-2020 Add On Accepted [facility] Work Phone: Comment on above: Specimen available & acceptable for analysis. Test Performed by [facility], [address] [place] [address] [facility] Work Phone: Add on test from HISon 08-26 Add on test from HIS Accepted Normal [facility] Comment on above: Result Comment: Spec imen available & acceptable for analysis. Performed By: #### A DDON ####[facility] [id number] [place], [place] Ammoniaon 08-26-2020 Ammonia (P) [Mass/Vol] ug/dL Normal 9-30 [facility] Comment on above: Performed By: #### A PTT, CMP3M, NH33, PT, BILD3, HEMOG #### [facility] [address] [place], [place] AmmoniaOrdered By: Donaldo Damon on 08-26-2020 Ammonia (P) [Mass/Vol] ug/dL 9 - 3 0 umol/L [facility] Work Phone: Test Performed by [facility], [address] [place] [address] [facility] Work Phone: Bilirubin, DirectOrdered By: Donaldo Jeffers on 08-26-2020 Bilirubin.indirect [Mass/Vol] 5.2 mg/dL High 0.0 - 0.3 mg/dL [facility] Work Phone: Interpretation and review of laboratory results Abnormal [facility] Work Phone: [phone] Test Performed by [facility], [address] [place] [address] [facility] Work Phone: ) [phone] Bilirubin,Directon 1 Bilirubin.indirect [Mass/Vol] 5.2 mg/dL High 0.0-0.3 [facility] Comment on above: Performed By: #### A PTT, CMP3M, NH33, PT, BILD3, HEMOG ####[facility] [id number] [place] [address] CBCOrdered By: Donalod thomas 08-26-2020 Hematocrit (Bld) [Volume fraction] 36.5 % Low 40.0 - 52.0 % [facility] Work Phone: 1) Hemoglobin.gastrointes tinal spec 1 Ql (Stl) 12.7 g/dL Low 13.0 - 18.0 g/dL [facility] Work Phone: 1) Interpretation and review of laboratory results Abnormal [facility] Work Phone: [phone] MCH (RBC) [Entitic mass] 34.1 pg High 26.0 - 34.0 pg [facility] Work Phone: [phone] MCHC (RBC) [Mass/Vol] 34.8 % 32.0 - 36.0 % [facility] Work Phone: [phone] MCV (RBC) [Entitic vol] 98.0 fL 80.0 - 98.0 fL [facility] Work Phone: 222 Platelet distribution width (Bld) [Ratio] 14.8 % High 11.5 - 14.5 % [facility] Work Phone: [phone] Platelet mean volume (Bld) [Entitic vol] 10.2 fL 7.4 - 10.4 fL [facility] Work Phone: 222 Platelets (Bld) [#/Vol] 70 10*3/uL Low 140 - 440 10*3/uL [facility] Work Phone: [phone] RBC (Bld) [#/Vol] 3.73 10*6/uL Low 4.40 - 5.9 0 10*6/uL [facility] Work Phone: WBC (Bld) [#/Vol] 6.8 10*3/uL 3.6 - 10.7 10*3/uL [facility] Work Phone: Test Performed by [facility], [address] [place] [address] [facility] Work Phone: CR Abdomen APon 08-26-2020 CR Abdomen AP Patient Name: JESUS GARRIDO Diagnostic Radiology ACCESSION EXAM DATE/TIME PROCEDURE ORDERING PROVIDER [id number] 08/26/2020 14:21 EDT CR Abdomen AP [id number] NUNEZ CPT code 46956 Reason For Exam (CR Abdomen AP) MrI rule out Report Abdomen: 08/26/2020. Clinical Information: Pre-MRI. Findings: A single supine view of the abdomen reveals a nonspecific nonobstructive bowel gas pattern. There is no evidence of organomegaly. No abnormal calcifications are seen. The visualized bony structures are intact. No battery packs or pacemaker wires are identified in the [id number]. Impression: Non specific radiographs of the abdomen. Report Dictated on Final Dictated: 08/26/2020 2:23 pm Dictating Physician: MD PHILIP RISA Signed Date and Time: 08/26/2020 2:40 pm Signed by: MD PHILIP RISA Transcribed Date and Time: 08/26/2020 2:23 Normal [facility] CR Chest 1 View Frontalon CR Chest 1 View Frontal Patient Name: JESUS SHAVER Diagnostic Radiology ACCESSION EXAM DATE/TIME PROCEDURE ORDERING PROVIDER [id number] 08/26/2020 14:21 EDT CR Chest 1 View Frontal [id number] NUNEZ CPT code 39060 Reason For Exam (CR Chest 1 View [...] Transcribed Date and Time: 08/26/2020 2:43 Normal [facility] CR Foreign Body Loc Eye Bijana evelio 08-26-2020 CR Foreign Body Loc Eye Bilateral Patient Name: JESUS SHAVER Diagnostic Radiology ACCESSION EXAM DATE/TIME PROCEDURE ORDERING PROVIDER [id number] 08/26/2020 14:21 EDT CR Foreign Body Loc Eye [id number] -ALBINO LAZO Bilateral CPT code 96142 Reason For Exam (CR Foreign Body Loc [...] Transcribed Date and Time: 08/26/2020 2:52 Normal [facility] Comp Panel with Mg Reflexon 08-26-2020 ALP [Catalytic activity/Vol] 189 U/L High 38-126 [facility] Comment on above: Result Comment: Slig htly hemolysed, interpret with caution. Performed By: #### A PTT, CMP3M, NH33, PT, BILD3, HEMOG ####[facility] [id number], [place] ALT [Catalytic activity/Vol] 134 U/L High 0-49 [facility] Comment on above: Result Comment: The ALT test is performed by an updated assay method. Please note that the reference intervals have been changed and are now sex specific. Performed By: #### A PTT, CMP3M, NH33, PT, BILD3, HEMOG ####[place] [id number] [place], [place] Calcium [Mass/Vol] 8.9 mg/dL Normal 8.4-10.4 [facility] Comment on above: Performed By: #### A PTT, CMP3M, NH33, PT, BILD3, HEMOG ####[place] [address] [place], [place] Glucose [Mass/Vol] 100 mg/dL Normal 70-100 [facility] Comment on above: Performed By: #### A PTT, CMP3M, NH33, PT, BILD3, HEMOG ####[place] [place], [place] Urea nitrogen [Mass/Vol] 23 mg/dL High 7-20 [facility] Comment on above: Performed By: #### A PTT, CMP3M, NH33, PT, BILD3, HEMOG ####[place] [place], [place] Anion gap [Moles/Vol] 8 mmol/L Normal 3-[address] [facility] Comment on above: Performed By: #### A PTT, CMP3M, NH33, PT, BILD3, HEMOG ####[place] [address] [place], [place] AST [Catalytic activity/Vol] 169 U/L High 15-46 [facility] Comment on above: Result Comment: Slig htly hemolysed, interpret with caution. Performed By: #### A PTT, CMP3M, NH33, PT, BILD3, HEMOG ####[place] [place], [place] Bilirubin [Mass/Vol] 8.6 mg/dL High 0.2-1.3 [facility] Comment on above: Performed By: #### A PTT, CMP3M, NH33, PT, BILD3, HEMOG ####[facility] [place], [place] CO2 [Moles/Vol] 26 mmol/L Normal 22-30 [facility] Comment on above: Performed By: #### A PTT, CMP3M, NH33, PT, BILD3, HEMOG ####[address] [place], [place] Creatinine [Mass/Vol] 0.83 mg/dL Normal 0.52-1.[address] [facility] Comment on above: Performed By: #### A PTT, CMP3M, NH33, PT, BILD3, HEMOG ####[address] [place], [place] eGFR OTHER > 90.0 Normal >60 [facility] Comment on above: Result Comment: KDIG [...] A PTT, CMP3M, NH33, PT, BILD3, HEMOG ####[address] [place], [place] GFR/1.73 sq M.predicted among blacks MDRD (S/P/Bld) [Vol rate/Area] mL/min/{1.73_m2} Normal >60 [facility] Comment on above: Performed By: #### A PTT, CMP3M, NH33, PT, BILD3, HEMOG ####[address] [place] [address] Protein [Mass/Vol] 6.5 g/dL Normal 6.3-8.2 [facility] Comment on above: Performed By: #### A PTT, CMP3M, NH33, PT, BILD3, HEMOG ####[place] [place], [place] Potassium [Moles/Vol] 3.7 mmol/L Normal 3.5-5.[address] [facility] Comment on above: Result Comment: Slig htly hemolysed, interpret with caution. Performed By: #### A PTT, CMP3M, NH33, PT, BILD3, HEMOG ####[place] [place], [place] Sodium [Moles/Vol] 139 mmol/L Normal 135-145 [facility] Comment on above: Performed By: #### A PTT, CMP3M, NH33, PT, BILD3, HEMOG ####[place] [place], [place] Albumin [Mass/Vol] 3.2 g/dL Low 3.5-5.0 [facility] Comment on above: Performed By: #### A PTT, CMP3M, NH33, PT, BILD3, HEMOG ####[address] [place] [address] Chloride [Moles/Vol] 105 mmol/L Normal 98-107 [facility] Comment on above: Performed By: #### A PTT, CMP3M, NH33, PT, BILD3, HEMOG ####[address] [place] [address] Comprehensive Metabolic Pane l w/ Reflex to MGOrdered By: Donaldo Jeffers on 08-26-2020 Albumin [Mass/Vol] 3.2 g/dL Low 3.5 - 5.0 g/dL [facility] Work Phone: ALP (Bld) [Catalytic activity/Vol] 189 U/L High 38 - 126 U/L [facility] Work Phone: Comment on above: Slightly hemolysed, interpret with caution. ALT [Catalytic activity/Vol] 134 U/L High 0 - 49 U/L [facility] Work Phone: Comment on above: The ALT test is perf ormed by an updated assay method. Please note that the reference intervals have been changed and are now sex specific. Anion gap [Moles/Vol] 8 mmol/L 3 - 13 mmol/L [facility] Work Phone: AST [Catalytic activity/Vol] 169 U/L High 15 - 46 U/L [facility] Work Phone: Comment on above: Slightly hemolysed, interpret with caution. Bilirubin [Mass/Vol] 8.6 mg/dL High 0.2 - 1 .3 mg/dL [facility] Work Phone: Calcium [Mass/Vol] 8.9 mg/dL 8.4 - 10. 4 mg/dL [facility] Work Phone: Chloride [Moles/Vol] 105 mmol/L 98 - 10 7 mmol/L [facility] Work Phone: CO2 [Moles/Vol] 26 mmol/L 22 - 30 mmol/L [facility] Work Phone: Creatinine [Mass/Vol] 0.83 mg/dL 0.52 - 1.25 mg/dL [facility] Work Phone: EGFR IF NonAfrican [place] >90.0 >60 mL/min [facility] Work Phone: Comment on above: KDIGO guidelines pro vide [...] fraction] 6.5 g/dL 6.3 - 8.2 g/dL [facility] Work Phone: GFR/1.73 sq M.predicted among blacks MDRD (S/P/Bld) [Vol rate/Area] mL/min/{1.73_m2} >60 mL/min [facility] Work Phone: Glucose [Mass/Vol] 100 mg/dL 70 - 100 mg/dL [facility] Work Phone: Interpretation and review of laboratory results Abnormal [facility] Work Phone: [phone] Potassium [Moles/Vol] 3.7 mmol/L 3.5 - 5.1 mmol/L [facility] Work Phone: [phone] Comment on above: Slightly hemolysed, interpret with caution. Sodium [Moles/Vol] 139 mmol/L 135 - 145 mmol/L [facility] Work Phone: Urea nitrogen (BldV) [Mass/Vol] 23 mg/dL High 7 - 20 mg/dL [facility] Work Phone: [phone] Test Performed by [address] [address] [facility] Work Phone: Hemogramon 08-26-2020 Erythrocyte distribution width (RBC) [Ratio] 14.8 % High 11.5-14.5 [facility] Comment on above: Performed By: #### A PTT, CMP3M, NH33, PT, BILD3, HEMOG #### [facility] [address] [address] Hematocrit (Bld) [Volume fraction] 36.5 % Low 40.0-52.0 [facility] Comment on above: Performed By: #### A PTT, CMP3M, NH33, PT, BILD3, HEMOG #### [address] [address] Hemoglobin (Bld) [Mass/Vol] 12.7 g/dL Low 13.0-18.0 [facility] Comment on above: Performed By: #### A PTT, CMP3M, NH33, PT, BILD3, HEMOG #### [place] [address] [place], [place] MCH (RBC) [Entitic mass] 34.1 pg High 26.0-34.0 [facility] Comment on above: Performed By: #### A PTT, CMP3M, NH33, PT, BILD3, HEMOG #### [place] [address] [address] [place], [place] MCHC 34.8 % Normal 32.0-36.0 [facility] Comment on above: Performed By: #### A PTT, CMP3M, NH33, PT, BILD3, HEMOG #### [address] MCV (RBC) [Entitic vol] 98.0 fL Normal 80.0-98.0 [facility] Comment on above: Performed By: #### A PTT, CMP3M, NH33, PT, BILD3, HEMOG #### [place] [address] [place], [place] Platelet mean volume (Bld) [Entitic vol] 10.2 fL Normal 7.4-10.4 [facility] Comment on above: Performed By: #### A PTT, CMP3M, NH33, PT, BILD3, HEMOG #### [place] [place], [place] Platelets (Bld) [#/Vol] 70 10*3/uL Low 140-440 [facility] Comment on above: Performed By: #### A PTT, CMP3M, NH33, PT, BILD3, HEMOG #### [place] [address] [place], [place] RBC (Bld) [#/Vol] 3.73 10*6/uL Low 4.40-5.90 [facility] Comment on above: Performed By: #### A PTT, CMP3M, NH33, PT, BILD3, HEMOG #### [facility] [address] WBC (Bld) [#/Vol] 6.8 10*3/uL Normal 3.6-10.7 [facility] Comment on above: Performed By: #### A PTT, CMP3M, NH33, PT, BILD3, HEMOG #### [address] No Panel InformationOrdered By: Donaldo Jeffers on 08-26-2020 Test Performed by [facility], [address] [place] [id number] [place] [address] Work Phone: Prothrombin Timeon INR 1.1 Normal 0.9-1.1 [facility] Comment on above: Result Comment: Douglas mmended Anticoagulant Therapy: SEE BELOW ----- INR [...] PTT, CMP3M, NH33, PT, BILD3, HEMOG #### [address] PT Coag (PPP) [Time] 12.1 s High 9.0-12.0 [facility] Comment on above: Result Comment: . Performed By: #### A PTT, CMP3M, NH33, PT, BILD3, HEMOG #### [address] Protime-INROrdered By: Anu Jeffers on 08-26-2020 INR Coag (Bld) [Relative time] 1.1 {INR} [facility] Work Phone: Comment on above: Recommended Anticoag [...] Radiology ACCESSION EXAM DATE/TIME PROCEDURE ORDERING PROVIDER [id number] 08/26/2020 14:21 EDT CR Abdomen [place] [id number] TAVAREZ CPT code 99134 Reason For Exam (CR Abdomen AP) MrI rule out Report Abdomen: 08/26/2020. Clinical Information: Pre-MRI. Findings: A single supine view of the abdomen reveals a nonspecific nonobstructive bowel gas pattern. There is no evidence of organomegaly. No abnormal calcifications are seen. The visualized bony structures are intact. No battery packs or pacemaker wires are identified in the [id number]-em-fabm. Impression: Non specific radiographs of the abdomen. Report Dictated on --- Final --- Dictated: 08/26/2020 2:23 pm Dictating Physician: MD PHILIP RISA Signed Date and Time: 08/26/2020 2:40 pm Signed by: MD PHILIP RISA Transcribed Date and Time: 08/26/2020 2:23 [facility] Work Phone: Alexei, [facility] Incoming Radiology Results From [facility] - 08/26/2020 2:41 PM EDT Patient Name: JESUS SHAVER Diagnostic Radiology ACCESSION EXAM DATE/TIME PROCEDURE ORDERING PROVIDER [id number] 08/26/2020 14:21 EDT CR Abdomen AP [id number] ALBINO CHIU CPT code 46267 Reason For Exam (CR Abdomen AP) MrI rule out Report Abdomen: 08/26/2020. Clinical Information: Pre-MRI. Findings: A single supine view of the abdomen reveals a nonspecific nonobstructive bowel gas pattern. There is no evidence of organomegaly. No abnormal calcifications are seen. The visualized bony structures are intact. No battery packs or pacemaker wires are identified in the [id number]-[id number]-kpoc. Impression: Non specific radiographs of the abdomen. Report Dictated on --- Final --- Dictated: 08/26/2020 2:23 pm Dictating Physician: MD PHILIP RISA Signed Date and Time: 08/26/2020 2:40 pm Signed by: MD PHILIP RISA Transcribed Date and Time: 08/26/2020 2:23 [facility] Work Phone: XR CHEST 1 VWOrdered By: Cortney Lazo on 08-26-2020 [id number] Radiology ACCESSION EXAM DATE/TIME PROCEDURE ORDERING PROVIDER [id number] 08/26/2020 14:21 EDT CR Chest 1 View Frontal [id number] ALBINO CHIU CPT code 78200 Reason For Exam (CR Chest 1 View [...] Time: 08/26/2020 2:43 [facility] Work Phone: Alexei, [facility]/26/[facility] 2:45 PM EDT Patient Name: JESUS SHAVER Diagnostic Radiology ACCESSION EXAM DATE/TIME PROCEDURE ORDERING PROVIDER [id number] 08/26/2020 14:21 EDT CR Chest 1 View Frontal [id number] NUNEZ CPT code 59676 Reason For Exam (CR Chest 1 View [...] XR EYE FOREIGN BODYOrdered B y: Albino Kingmann on 08-26-2020 Patient Name: JESUS GARRIDO Diagnostic Radiology ACCESSION EXAM DATE/TIME PROCEDURE ORDERING PROVIDER [id number] 08/26/2020 14:21 EDT CR Foreign Body Loc Eye [id number] NUNEZ Bilateral CPT code 87496 Reason For Exam (CR Foreign Body Loc [...] Time: 08/26/2020 2:52 [facility] Work Phone: [facility] - 08/26/2020 2:53 PM EDT Patient Name: JESUS SHAVER Diagnostic Radiology ACCESSION EXAM DATE/TIME PROCEDURE ORDERING PROVIDER [id number] 08/26/2020 14:21 EDT CR Foreign Body Loc Eye [id number] -ALBINO LAZO Bilateral CPT code 78400 Reason For Exam (CR Foreign Body Loc [...] and Time: 08/26/2020 2:52 [facility] Work Phone: [facility] 08-24-2020 [facility] Telephone (INTMWS) -- JESUS SHAVER ([id number]) 1955 M Date Time Provider Department 08/24/20 JESUS MILLS During your visit today, we recorded the following information about you: Pat Rodriguez LPN 08/24/2020 1:39 PM Signed [facility] refusing [facility] [...] 08/24/2020 5:03 PM Signed Nurse Venecia @ [place] notified Justina Reardon LPN Allergies As of Date: 08/24/2020 Noted Allergy Reaction KEPPRA (LEVETIRACETAM) 05/14/2015 14 - Other: See Comments Comments: Increased seizures VICKS VAPORUB ([id number]*2015 2 - Rash Date Reviewed: 02/21/2019 Reviewed by: Minerva Castillo - Fully Assessed Reason for Visit: Patient Update [1234] Primary Visit Diagnosis:Nausea [R11.0] Other Visit Diagnosis:Dark urine [R82.998] Order(s):CBC + DIFF [SQCBCDIF] Order #: [id number] FUTURE COMP METABOLIC PANEL [SQCMP] Order #: [id number] FUTURE URINALYSIS, WITH MICROSCOPIC [SQUAWMIC] Order #: [id number] FUTURE URINE CULTURE [SQURCUL] Order #: [id number] FUTURE Prescriptions as of 08/24/2020 Sig: CERTAVITE-ANTIOXIDANT [...] Status:Closed by JUSTINA REARDON LPN [facility]ES[facility] ([id number]) 1955 Date Time Provider Department 08/24/20 JESUS MILLS During your visit today, we recorded the following information about you: Cleveland Mcgowan RN 08/24/2020 1:34 PM Signed [facility]- reporting POC: patient will be skilled daily for medication administration, and will continue to monitor for 60 days. Will send POC to pcp. Jesus Mills MD 08/24/2020 2:37 PM Signed noted Allergies As of Date: 08/24/2020 Noted Allergy Reaction KEPPRA (LEVETIRACETAM) 05/14/2015 14 - Other: See Comments Comments: Increased seizures VICKS VAPORUB (GKKWL-WLYCWCUH-QTV*2015 2 - Rash Date Reviewed: 02/21/2019 Reviewed by: Minerva Castillo - Fully Assessed Reason for Visit: [facility]: POC [Other] Prescriptions as of 08/24/2020 Sig: [...] Encounter Status:Closed by JESUS MILLS on 08/24/20 [facility] OBSOLETEon 08-19-2020 OBSOLETE Refill (FAMPWS) -- JESUS SHAVER ([id number]) 1955 M Date Time Provider Department 08/19/20 JESUS MILLS During your visit today, we recorded the following information about you: Tayler Velázquez Pss 08/19/2020 11:29 AM Signed Patient's request [...] See Comments Comments: Increased seizures VICKS VAPORUB (ZQFWF-LDCHRBUH-PZC*2015 2 - Rash Date Reviewed: 02/21/2019 Reviewed by: Minerva Castillo - Fully Assessed Reason for Visit: Refill Request [94] Order(s):multivitamin-ferr ous fumarate-folic acid (CERTAVITE-ANTIOXIDANT)Rodger e 1 tablet by mouth once daily.Disp: 30 tabletRfl: 5 ilmqbkt-qiumoffwv-ohaqzjr D3 (OYSTER SHELL CALCIUM-VITAMIN D) 500 mg(1,250mg) [...] 1 tablet by mouth once daily. - qxsxqmu-yfzvmzhed-qngkvpv D3 (OYSTER SHELL CALCIUM-VITAMIN D) 500 mg(1,250mg) -200 unit per tablet (Discontinued) TAKE (1) TABLET BY MOUTH TWICE A DAY. Encounter Status:Closed by JESUS MILLS on 08/19/20 [facility] OBSOLETEon 08-02-2020 OBSOLETE Refill (FAMPWS) -- JESUS SHAVER ([id number]) 1955 M Date Time Provider Department 08/02/20 [...] See Comments Comments: Increased seizures VICKS VAPORUB (QGAUS-ZPEIQNDL-YJN*2015 2 - Rash Date Reviewed: 02/21/2019 Reviewed [...] Status:Closed by JESUS MILLS MD on 08/02/20 [facility] ([id number]) 1955 M Date Time Provider Department 07/05/20 JESUS MILLS [facility] During your visit today, we recorded the [...] Patient is seeing neurology still Ven[place] nurse for [place] states that meds would be given at 8a, 4p, 8p. Asking to have faxed to her so she can forward on to neurology. Will fax [phone]. Jesus Mills MD 07/07/2020 8:08 AM Signed lamictal came back borderline high. Fax to neurology also. Fredis Cunningham LPN 07/07/2020 9:28 AM Signed Will send all results to [place] nurse Venecia. Allergies As of Date: 07/05/2020 Noted Allergy Reaction KEPPRA (LEVETIRACETAM) 05/14/2015 14 - Other: See Comments Comments: Increased seizures VICKS VAPORUB (VWHRN-CLOLEDLB-JTN*2015 2 - Rash Date Reviewed: 02/21/2019 Reviewed [...] Encounter Status:Closed by FREDIS CUNNINGHAM LPN on 3/17/21 Normal [facility] CBC and Differentialon 07-03 Abs Baso 0.07 k/uL Normal <0.11 [facility] Comment on above: Performed By: #### V PA, CBCDIF, PSAS1, LMTR ####[facility] AveClevelDavid [place] [phone] Abs Ada 0.76 k/uL Normal <0.87 [facility] Comment on above: Performed By: #### V PA, CBCDIF, PSAS1, LMTR ####[place] [address]ClevelDavid [address] [phone] Abs Neut 2.20 k/uL Normal 1.45-7.50 [facility] Comment on above: Performed By: #### V PA, CBCDIF, PSAS1, LMTR ####[place] [address]ClevelDavid V[place] [phone] Absolute nRBC <0.01 Normal <0.01 [facility] Comment on above: Performed By: #### V PA, CBCDIF, PSAS1, LMTR ####[place] [address] [place] [phone] Basophils/100 WBC (Bld) 1.0 % Normal [facility] Comment on above: Performed By: #### V PA, CBCDIF, PSAS1, LMTR ####[facility]CDonald V[place] [phone] DTYPE Auto Diff Normal [facility] Comment on above: Performed By: #### V PA, CBCDIF, PSAS1, LMTR ####[place] [id number] AveClevelDavid Ville [phone] Eosinophils (Bld) [#/Vol] 0.07 10*3/uL Normal <0.46 [facility] Comment on above: Performed By: #### V PA, CBCDIF, PSAS1, LMTR ####[facility] AveClevelDavid Ville [phone] Eosinophils/100 WBC (Bld) 1.0 % Normal [facility] Comment on above: Performed By: #### V PA, CBCDIF, PSAS1, LMTR ####[place] [address] [place] [phone] Erythrocyte distribution width (RBC) [Ratio] 15.4 % High 11.5-15.0 [facility] Comment on above: Performed By: #### Fadumo PA, CBCDIF, PSAS1, LMTR ####[place] [address] [address] [place] [phone] Hematocrit (Bld) [Volume fraction] 40.6 % Normal 39.0-51.0 [facility] Comment on above: Performed By: #### Fadumo PA, CBCDIF, PSAS1, LMTR ####[place] [address] [address] [place] [phone] Hemoglobin (Bld) [Mass/Vol] 13.1 g/dL Normal 13.0-17.0 [facility] Comment on above: Performed By: #### Fadumo PA, CBCDIF, PSAS1, LMTR ####[place] [address] [address] [place] [phone] Lymphocytes (Bld) [#/Vol] 3.78 10*3/uL Normal 1.00-4.00 [facility] Comment on above: Performed By: #### V PA, CBCDIF, PSAS1, LMTR ####[place] [address] [phone] Lymphocytes/100 WBC (Bld) 54.9 % Normal [facility] Comment on above: Performed By: #### V PA, CBCDIF, PSAS1, LMTR ####[place] [address]CClay[address], [place] [phone] MCH 32.3 pG Normal 26.0-34.0 [facility] Comment on above: Performed By: #### V PA, CBCDIF, PSAS1, LMTR ####[facility] AveClevelNewell, [place] [phone] MCHC (RBC) [Mass/Vol] 32.3 g/dL Normal 30.5-36.0 [facility] Comment on above: Performed By: #### V PA, CBCDIF, PSAS1, LMTR ####[place] [address] [phone] MCV (RBC) [Entitic vol] 100.2 fL High 80.0-100.0 [facility] Comment on above: Performed By: #### V PA, CBCDIF, PSAS1, LMTR ####[place] [address] [phone] Monocytes/100 WBC (Bld) 11.0 % Normal [facility] Comment on above: Performed By: #### V PA, CBCDIF, PSAS1, LMTR ####[place] [address]CD[address] [place] [phone] Neutrophils/100 WBC (Bld) 32.1 % Normal [facility] Comment on above: Performed By: #### V PA, CBCDIF, PSAS1, LMTR ####[place] [address]CD[address] [place] [phone] NRBCs 0.0 /100 WBC Normal 0 [facility] Comment on above: Performed By: #### V PA, CBCDIF, PSAS1, LMTR ####[place] [address]ClevelDavid [place] [phone] Platelet mean volume (Bld) [Entitic vol] 13.0 fL High 9.0-12.7 [facility] Comment on above: Performed By: #### V PA, CBCDIF, PSAS1, LMTR ####[place] [address] AveClevelandNorth [place], [place] [phone] Platelets (Bld) [#/Vol] 109 10*3/uL Low 150-400 [facility] Comment on above: Performed By: #### V PA, CBCDIF, PSAS1, LMTR ####[facility] AveCClayton, [place] [phone] RBC (Bld) [#/Vol] 4.05 10*6/uL Low 4.20-6.00 [facility] Comment on above: Performed By: #### V PA, CBCDIF, PSAS1, LMTR ####[facility]CCl[address], [place] [phone] WBC (Bld) [#/Vol] 6.88 10*3/uL Normal 3.70-11.00 [facility] Comment on above: Performed By: #### V PA, CBCDIF, PSAS1, LMTR ####[place] [id number] [place], [place] [phone] Lamotrigineon 07-03-2020 Lamotrigine 13.5 ug/mL High 1-13 [facility] Comment on above: Result Comment: This test was developed and its performance characteristics determined by [facility]'s [facility] [place] ( [facility]). It has not been cleared or approved by the FDA. [facility] is regulated under CLIA as qualified to perform high complexity testing. This test is used for clinical purposes. It should not be regarded as investigational or for research. Performed By: #### V PA, CBCDIF, PSAS1, LMTR ####[facility] [address] AvMi[place], [place] [phone] Remote CMP (for [facility] use only )on 07-03-2020 Albumin [Mass/Vol] 3.7 g/dL Low 3.9-4.9 [facility] Comment on above: Performed By: #### R CMP, RLIPB ####[facility] Av[address], [place] [phone] ALP [Catalytic activity/Vol] 67 U/L Normal 38-113 [facility] Comment on above: Performed By: #### R CMP, RLIPB ####[address] [phone] ALT [Catalytic activity/Vol] 15 U/L Normal 10-54 [facility] Comment on above: Performed By: #### R CMP, RLIPB ####[address] [phone] Anion gap [Moles/Vol] 7 mmol/L Low 9-18 [facility] Comment on above: Performed By: #### R CMP, RLIPB ####[address] [phone] AST [Catalytic activity/Vol] 26 U/L Normal 14-40 [facility] Comment on above: Performed By: #### R CMP, RLIPB ####[address] [phone] Bilirubin [Mass/Vol] 0.3 mg/dL Normal 0.2-1.3 [facility] Comment on above: Performed By: #### R CMP, RLIPB ####[address] [phone] Calcium [Mass/Vol] 9.6 mg/dL Normal 8.5-10.2 [facility] Comment on above: Performed By: #### R CMP, RLIPB ####[address] [phone] Chloride [Moles/Vol] 106 mmol/L High 97-105 [facility] Comment on above: Performed By: #### R CMP, RLIPB ####[address] [phone] CO2 [Moles/Vol] 28 mmol/L Normal 22-30 [facility] Comment on above: Performed By: #### R CMP, RLIPB ####[facility] [place], [place] [phone] Creatinine [Mass/Vol] 1.01 mg/dL Normal 0.73-1.22 [facility] Comment on above: Performed By: #### R CMP, RLIPB ####[facility] [place], [place] [phone] eGFR- Amer. >60 Normal [facility] Comment on above: Performed By: #### R CMP, RLIPB ####[facility] [place], [place] [phone] eGFR-All Other Races >60 Normal [facility] Comment on above: Result Comment: eGFR [...] reflect actual GFR. Performed By: #### R CMP, RLIPB ####[facility] [place], [place] [phone] Glucose [Mass/Vol] 73 mg/dL Low 74-99 [facility] Comment on above: Result Comment: The [place] Diabetes Association (ADA) provides guidance for cutoff [...] Standards of Medical Care in Diabetes 2016, [place] [employer]. Diabetes Care. 2016.39(Suppl 1). Performed By: #### R CMP, RLIPB ####[facility]CCl[address], [place] [phone] Potassium [Moles/Vol] 4.3 mmol/L Normal 3.7-5.1 [facility] Comment on above: Performed By: #### R CMP, RLIPB ####[place] [address], [place] [phone] Protein [Mass/Vol] 6.4 g/dL Normal 6.3-8.0 [facility] Comment on above: Performed By: #### R CMP, RLIPB ####[place] [address], [place] [phone] Sodium [Moles/Vol] 141 mmol/L Normal 136-144 [facility] Comment on above: Performed By: #### R CMP, RLIPB ####[place] [address], [place] [phone] Urea nitrogen [Mass/Vol] 20 mg/dL Normal 9-24 [facility] Comment on above: Performed By: #### R CMP, RLIPB ####[place] [address] [place], [place] [phone] Remote LIPB (for [facility] use onl y)on 07-03-2020 Cholesterol [Mass/Vol] 155 mg/dL Normal <200 [facility] Comment on above: Result Comment: <200 mg/dL, Desirable 200-239 mg/dL, Borderline high >239 mg/dL, High Performed By: #### R CMP, RLIPB ####[place] [address], [place] [phone] Cholesterol in HDL [Mass/Vol] 60 mg/dL Normal >39 [facility] Comment on above: Result Comment: 40-5 9 mg/dL, Acceptable >59 mg/dL, High: Negative risk factor for coronary heart disease <40 mg/dL, Low: Positive risk factor for coronary heart disease Performed By: #### R CMP, RLIPB ####[facility] [place], [place] [phone] Cholesterol in LDL [Mass/Vol] 75 mg/dL Normal <100 [facility] Comment on above: Result Comment: <100 mg/dL, Optimal 100-129 mg/dL, Near optimal/above optimal 130-159 mg/dL, Borderline high 160-189 mg/dL, High >189 mg/dL, Very high Secondary prevention optimal LDL Cholesterol levels are recommended to be < 70 mg/dL Performed By: #### R CMP, RLIPB ####[place] [address] [place], [place] [phone] Fasting Time 15 hrs Normal [facility] Comment on above: Performed By: #### R CMP, RLIPB ####[address] [phone] LDL:HDL Ratio 1.25 Normal <2.54 [facility] Comment on above: Result Comment: Refe rence: 1. National Cholesterol Education Program ATP III Guideline At-A-Glance Quick Desk Reference: National Heart, Lung, and Blood [place]. National Institutes of Health. 2001: NIH Publication No. 01-3305. 2. An International Atherosclerosis Society position paper: global recommendations for the management of dyslipidemia: executive summary, Atherosclerosis. 2014: 232(2):410-413. Performed By: #### R CMP, RLIPB ####[place] [address] [place], [place] [phone] Non HDL Cholesterol 95 mg/dL Normal <130 [facility] Comment on above: Result Comment: <130 mg/dL, Optimal 130-159 mg/dL, Near optimal/above optimal 160-189 mg/dL, Borderline high 190-219 mg/dL, High >219 mg/dL, Very high Secondary prevention optimal non HDL Cholesterol levels are recommended to be < 100 mg/dL Performed By: #### R CMP, RLIPB ####[place] [address] [place], [place] [phone] TC:HDL Ratio 2.58 Normal <5.10 [facility] Comment on above: Performed By: #### R CMP, RLIPB ####[address] [phone] Triglyceride [Mass/Vol] 98 mg/dL Normal <150 [facility] Comment on above: Result Comment: <150 mg/dL, Normal 150-199 mg/dL, Borderline high 200-499 mg/dL, High >499 mg/dL, Very high Performed By: #### R CMP, RLIPB ####[address] [phone] VLDL Cholesterol 20 mg/dL Normal <30 [facility] Comment on above: Performed By: #### R CMP, RLIPB ####[address] [phone] Valproic Acidon 07-03-2020 Valproic Acid 100.4 ug/mL High 50-100 [facility] Comment on above: Result Comment: Refe rence ranges and high/low indicator flags are provided as general guidelines only. The treating physician must determine appropriate target levels/dosing based on the specific clinical situation. Performed By: #### V PA, CBCDIF, PSAS1, LMTR ####[address] [phone] Fecal Occult Bld Tston 06-17 Immuno FOB Negative Normal Negative [facility] Comment on above: Result Comment: This test was developed and its performance characteristics determined by [facility]'s [facility] [place] ([facility]). It has not been cleared or approved by the FDA. [facility] is regulated under CLIA as qualified to perform high complexity testing. This test is used for clinical purposes. It should not be regarded as investigational or for research. Performed By: #### I FOBT ####[address] [phone] [facility] 06-16-[address] [facility] Office Visit (FAMPWS ) -- JESUS SHAVER ([id number]) 1955 M Date Time Provider Department 06/16/20 8:00 AM JESUS MILLS During your visit today, we recorded the following information about you: Temperature Pulse Respiration Blood pressure 97.5 degrees 85/minute 16/minute 116/64 Weight 83 kg Jesus Mills MD 06/16/2020 8:31 AM Signed Patient presents with: Yearly Exam HPI: Patient presents today for office visit for annual check up. Has been doing well since back from the residential. Has started to gain weight again. Back [...] 1 tablet by mouth once daily. - rnvbymv-noryihcnu-vfnzbzi D3 (OYSTER SHELL CALCIUM-VITAMIN D) 500 mg(1,250mg) [...] + DIFF - CMP (CMP) (FOR REMOTE [facility] USE) - VALPROIC A/DEPAKENE - LAMOTRIGINE 2. [...] ICD9: 27 (more content not included)... Normal [facility] Office Visit (Urology)on Follow-up visit Diagnoses/Problems Assessed [...] Vital Signs Recorded: 28Apr2020 09:22AM Heart Rate76 [id number] Anyylizpg33 Rdbuds994 lb Tobacco Useb) No Fall Screeningb) One [...] 02-07-2020 VALPROIC ACID 113.6 MCG/ML High 50-100 [facility] Comment on above: Performed By: #### L [phone] #### [facility] [address] [place], [place] [address] # [phone] NURSING PROGon 01-04-2018 Protein mass conc HNO ID: [id number] thor: Vanda (Rn) KELECHI Johnservice: (none)Author Type: Registered NurseType: Nursing Progress NoteFiled: 01/04/2018 10:38 AMNote Text:PACC Nurse Progress NoteHistory AND Physical:PACC Visit Date: N/AOriginal HANDP Date: 01-02-18 by JEFF Danielle visit Date: N/AOutside HANDP Scanned Date: N/ALabs Within Last 6 Months:N/AImaging Within Last 12 Months:N/ACardiac Testing:N/ALast Menstrual Period:LMP Date: N/APostmenopausal >1yr: N/A,S/P Hysterectomy: N/ABMI Percentile (PEDS):N/ARisk Assessment:N/AAnesthesia Review:N/ANarrative:Elena t did not have PACC. HANDP in epic per BAILEY Danielle. Patient sawDr. Mills on 01-02-18 re: seizure disorder. Spoke to Venecia at group [facility]where [facility]. POA is Adult protective services per Venecia [facility]. She has received instructions from Dr. Hartmann re: bowelprep. Instructed Venecia [facility] patient may have 12oz clear liquids until 2hours prior to arrival at [facility]. Instructed to take Lamictal,Zonegran and Depakote preop with sip water. Patient will ne accompaniedby senior care personnel. [facility].Pre-op Considerations:MRDDSeizure disorderChart Check:COMPLETEDLinda KELECHI Johnseptember 2017 10:29 AM Normal [facility] Vital Signs Date Time Vital Sign Value Performing Clinician Lesia rick 08-28-2020 09:33-0400 Body temperature 97.3 [degF] Pharmacy Development DO Work Phone: [facility] Work Phone: 08-28-2020 09:33-0400 Diastolic blood pressure 62 mm[Hg] Yazid Eric DO Work Phone: [facility] Work Phone: 08-28-2020 09:33-0400 Heart rate 52 /min Odalys Eric DO Work Phone: [facility] Work Phone: 08-28-2020 09:33-0400 Respiratory rate 16 /min Yadidi Eric DO Work Phone: [facility] Work Phone: 08-28-2020 09:33-0400 SaO2% (BldA) [Mass fraction] 98 % Odalys Eric DO Work Phone: [facility] Work Phone: 08-28-2020 09:33-0400 Systolic blood pressure 116 mm[Hg] Odalys Eric DO Work Phone: [facility] Work Phone: 04-28-2020 11:22-0500 Body weight 83.92 kg Ari Valles II OR-Zuumewb-Udluj nd Work Phone: 04-28-2020 11:22-0500 BP Diastolic 85 mm[Hg] Ari Valles II XU-Bwdghkp-Cwsxm nd Work Phone: 04-28-2020 11:22-0500 BP Systolic 139 mm[Hg] Ari Valles II EF-Zvcegco-Yrzpi nd Work Phone: 04-28-2020 11:22-0500 Pulse (Heart Rate) 76 /min Ari Valles II QL-Rytetpw-Uh hland Work Phone: Encounters Encounter Date Encounter Type Care Provider Facility Start: 02-19-2025 ambulatory Beth Gudla OLS Facili ty:[facility] Start: 01-15-2025 End: 01-15-2025 ambulatory Beth Gudla Facility:[facility] Start: 06-02-2024 ambulatory Beth Gudla Facility:[facility] Start: 02-25-2024 End: 02-25-2024 ambulatory Beth Gudla Facility:[facility] Start: 07-16-2023 End: 07-16-2023 ambulatory [facility] Work Phone: Start: 07-16-2023 End: 07-16-2023 Departed Referred [facility] Start: 05-18-2023 End: 05-18-2023 ambulatory [facility] Work Phone: Start: 05-18-2023 End: 05-18-2023 Departed Referred [facility] Start: 05-01-2023 End: 05-01-2023 ambulatory [facility] Work Phone: Start: 05-01-2023 End: 05-01-2023 Departed Referred [facility] Start: 02-26-2023 End: 02-26-2023 ambulatory [facility] Work Phone: Start: 02-26-2023 End: 02-26-2023 Departed Referred [facility] Start: 10-16-2022 End: 10-16-2022 ambulatory [facility] Work Phone: Start: 10-16-2022 End: 10-16-2022 Departed Referred [facility] Start: 09-04-2022 End: 09-04-2022 ambulatory [facility] Work Phone: Start: 09-04-2022 End: 09-04-2022 Departed Referred [facility] Start: 08-29-2022 End: 08-29-2022 Departed Referred [facility] Start: 07-21-2022 End: 07-21-2022 ambulatory [facility] Work Phone: Start: 07-21-2022 End: 07-21-2022 Departed Referred [facility] Start: 06-27-2022 End: 06-27-2022 ambulatory [facility] Work Phone: Start: 06-27-2022 End: 06-27-2022 Departed Referred [facility] Start: 05-22-2022 End: 05-22-2022 ambulatory [facility] Work Phone: Start: 05-22-2022 End: 05-22-2022 Departed Referred [facility] Start: 05-22-2022 Registered Referred [facility] Start: 05-15-2022 End: 05-15-2022 ambulatory [facility] Work Phone: Start: 05-15-2022 End: 05-15-2022 Departed Referred [facility] Start: 05-15-2022 Registered Referred [facility] Start: 05-01-2022 End: 05-01-2022 ambulatory [facility] Work Phone: Start: 05-01-2022 End: 05-01-2022 Departed Referred [facility] Start: 11-11-2021 End: 11-11-2021 Departed Referred [facility] 300 Start: 10-26-2021 Registered [facility] 300 Start: 07-27-2021 End: 07-27-2021 Departed Referred [facility] 300 Start: 07-27-2021 Registered [facility] 300 Start: 07-23-2021 End: 07-23-2021 Departed Referred [facility] 300 Start: 07-23-2021 Registered [facility] 300 Start: 05-23-2021 Registered [facility] 100/200 Start: 05-16-2021 Registered [facility] 100/200 Start: 08-25-2020 End: 08-28-2020 Evaluation and management of inpatient Joseydidi Reyes DO Work Phone: [facility] [employer] Start: 04-28-2020 Patient encounter procedure Ari Valles II MP-Huftmkv-Gnkoyep Work Phone: Start: 12-22-2019 Patient encounter procedure Ari Valles II DA-Xobrqnn-Vrqbyhy Work Phone: Procedures Date Procedure Procedure Detail Performing Clinician Start: 09-04-2022 Urine culture Start: 09-02-2020 Antibody screen Start: 08-28-2020 Blood count complete auto&auto difrntl wbc Donaldo Jeffers MD Work Phone: Start: 08-27-2020 Ecg routine ecg w/least 12 lds w/i&r Monique Resendiz MD Work Phone: Start: 08-27-2020 COVID-19 Todd Hyatt MD Work Phone: Start: 08-27-2020 Us abdominal real time w/image limited Ablino Lazo PA-C Work Phone: Start: 08-27-2020 Blood count complete auto&auto difrntl wbc Donaldo Jeffers MD Work Phone: Start: 08-26-2020 Chest x-ray 1 view frontal Albino pineda PA-C Work Phone: Start: 08-26-2020 Radiologic exam abdomen 1 view Albino denny PA-C Work Phone: Start: 08-26-2020 Radiologic examination eye detect foreign body Albino Lazo PA-C Work Phone: Start: 08-26-2020 ADD ON LAB TEST Albino Lazo PA-C Work Phone: Start: 08-26-2020 Assay of ammonia Donaldo Jeffers MD Work Phone: Start: 07-03-2020 PSA screening Comment on above: Result Comment: Total PSA test methodolo gy used is the Electrochemiluminescence Immunoassay. Performed By: #### V BAILEY, CBCDIF, PSAS1, LMTR ####[facility], [place] [id number] Start: 04-28-2020 Assay of prostate specific antigen total Ari Valles II History of No history of surgery Ari Valles II Urine culture Plan of Treatment Date Care Activity Detail Author Start: 12-22-2020 Influenza vaccination Flu vacc ine (Season Ended) [facility] Work Phone: Start: 1971 COVID-19 Vaccine (1) COVID-19 Vaccin e (1) [facility] Work Phone: EKG 12 Lead EKG 12 Lead ECG Routine 08/27/2020 1:11 PM EDT [facility] Work Phone: End: 08-26-2020 MRI abdomen without contrast MRI abdomen without contrast Imaging STAT Once for 1 Occurrences starting 08/26/2020 until 08/26/2020 [facility] Work Phone: Comment on above: Once for 1 Occurrenc es starting 08/26/2020 until 08/26/2020 Oxygen therapy [[facility] Data Set] Initiate Oxygen Therapy Protocol Respiratory Care Routine Daily until discontinued starting 08/26/2020 [facility] Work Phone: Comment on above: Daily until disconti nued starting 08/26/2020 Immunizations Immunization Date Immunization Notes Care Provider Fa [facility] 01-20-2020 influenza, injectabl e, quadrivalent, preservative free [facility] 01-20-2020 influenza, seasonal, injectable [facility] 01-05-2019 Influenza virus vaccine [facility] Payers Date Payer Category Payer Self-pay [id number] 2010 Medicaid [id number] Unknown [id number] Unknown [id number] Unknown [id number] Unknown [id number] Social History Date Type Detail Facility Start: 08-26-2020 Tobacco smoking status NHIS Never smoker [facility] Work Phone: Start: 08-26-2020 Tobacco use and exposure Never used [facility] Sex Assigned At Not on file [facility] Work Phone: Start: 10-20-2020 End: 10-20-2020 Tobacco smoking status TNIS Unknown if ever smoked [facility] Start: 12-08-2019 None [facility] Start: 12-08-2019 - [facility] Start: 08-25-2020 Non-smoker [facility] Start: 1955 Sex Assigned At Male [facility] NEGATED: Highlighted row - - [facility] Work Phone: Medical Equipment Procedure Code Equipment [...] exploration of common bile duct CLIP,HEMZACH DELUNA WECK FDA Start: 01-19-2020 Total cholecystectomy with exploration of common bile duct CLIP,HEMOLOSOMMER DELUNA WESOMMER FDA Start: 01-19-2020 Total cholecystectomy with exploration of common bile duct CLIP,HEMOLOCK MED WESOMMER FDA Start: 01-19-2020 Total cholecystectomy with [...] with exploration of common bile duct CLIP,HEMSEDRICKSOMMER BURR FDA Start: 01-19-2020 Total cholecystectomy with exploration of common bile duct CLIP,HEMSEDRICKSOMMER MIKIE AMINAH FDA Start: 01-19-2020 Total cholecystectomy with exploration of common bile duct CLIP,HEMSEDRICKSOMMER MIKIE AMINAH FDA Start: 01-19-2020 Total cholecystectomy with exploration of common bile duct CLIP,HEMSEDRICKSOMMER BURR FDA Start: 01-19-2020 Total cholecystectomy with exploration of common bile duct CLIP,HEMOLOSOMMER MIKIE AMINAH FDA Start: 01-19-2020 Total cholecystectomy with exploration of common bile duct CLIP,HEMSEDRICKSOMMER BURR FDA Start: 01-19-2020 Total cholecystectomy with [...] exploration of common bile duct CLIP,HEMSEDRICKCK MIKIE WESOMMER FDA Start: 01-19-2020 Total cholecystectomy with exploration of common bile duct CLIP,HEMOLOCK MIKIE WECK FDA Start: 01-19-2020 Total cholecystectomy with exploration of common bile duct CLIP,HEMOLOCK MIKIE WESOMMER FDA Start: 01-19-2020 Total cholecystectomy with exploration of common bile duct CLIP,HEMOLOCK MIKIE WECK FDA Start: 01-19-2020 Total cholecystectomy with exploration of common bile duct CLIP,HEMOLOSOMMER DELUNA WECK FDA Start: 01-19-2020 Total cholecystectomy with exploration of common bile duct CLIP,HEMOLOCK MED WESOMMER FDA Start: 01-19-2020 Total cholecystectomy with exploration of common bile duct CLIP,HEMOLOCK MED WECK FDA Start: 01-19-2020 Total cholecystectomy with [...] status health issues are not documented Disease [facility] Work Phone: Mental Status Date Assessment Result Facility NEGATED: Highlighted row Cognitive function [Interpretation] Cognitive status health issues are not documented Disease [facility] Work Phone: Clinical Notes 06-16-2020 to 10-27-2020 Cierra Fields RN - 08/28/2020 2:40 PM Cierra Romano RN - 08/28/2020 11:55 AM Todd Romero MD - 08/27/2020 4:59 PM Jayne Womack DTR - 08/27/2020 3:17 PM EDT Note Date & Type Note Facility 10-27-2020 Note HNO ID: [id number] Author: Wendy Cardoso MD Service: Gastroenterology Author Type: Physician Type: Plan of Care Filed: 10/27/2020 12:53 PM Note Text: DNR status is temporarily reversed to FULL code during ERCP. This was discussed and confirmed with [employer]PSI (guardian) - Estelle Duke. Wendy Cardoso Fellow, Gastroenterology AND Hepatology October 27, 2020 12:53 PM [facility] 09-28-2020 Note HNO ID: [id number] Author: Adrien Lu MD Service: ? Author [...] down slightly and was discharged. Note from [facility] Emergency Department to Hospital Admission 08/28/2020 [...] ERCP - 09/01/2020 Findings: ? ? 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 The scope was advanced [...] 11.1 (H) Alkalin (more content not included)... [facility] 09-13-2020 Note HNO ID: [id number] Author: EZE Canales Service: Care Management Author Type: Associate Professor Of Management Type: Care Mgt Progress Note Filed: 09/13/2020 [...] Arrangements: Ambulance/[employer] Agency and Phone #:: [facility] [phone] Date of Trip: 09/13/20 Time of Trip: 1400 Type of Service: BLS Non-emergency Is Patient Medicaid Pending?: No Discussion of financial coverage occurred with: Guardian Trap Puller Location: [place] Destination: [facility] Financial Care Management Responsibility: None ADDITIONAL CONTACT RESOURCES: n/a Discharge Information Row Name ED to Hosp-Admission (Current) from 08/28/2020 in Zxuffsfgl-1T-Qnttikzr/ Intermediate Facility Agency [facility] Pt is medically cleared for Dc and has been accepted for admission to [facility]. THey are able to accept today and MMT BLS has been set for 2pm product picker. Packet with number for report has been provided to bedside RN. RN to add most updated MAR and DC instructions. SW left VM for APSI- guardian - Mandy [phone] to update on DC plans and requested return call. SW also left VM for Board of DD Carmelita [phone] to update on DC plans and requested return call. UPDATE- spoke with Mandy from [facility]- aware and agreeable to Dc plans. Sw received return call from Board of DD worker- Carmelita who requested to have Dc paperwork faxed to her at [phone]. Carmelita reports that this is the last paperwork she needs to complete the Dc paperwork for admission on her end and that pt is able to admit at 2pm today. ANI faxed DC paperwork as requested. SIGNATURE: EZE Canales PATIENT NAME: Jesus Shaver DATE: September 13, 2020 TIME: 10:49 AM PAGER/CONTACT #: [phone] [facility] 09-13-2020 Note HNO ID: [id number] Author: Monique Mercedes MD Service: Hospital Medicine Author Type: Physician Type: Progress Notes Filed: 09/13/2020 9:36 AM Note Text: DEPARTMENT OF HOSPITAL MEDICINE PROGRESS NOTE SERVICE DATE: 09/13/2020 SERVICE TIME: 9:33 AM Hospital Medicine/Primary Attending: Monique Mercedes MD NIGHT AND WEEKEND COVERAGE: patient admitted to -3. please page [phone] between 7a and 5pm for patient issues. From 5p-7am, please page the night hospitalist on pager [phone] for patient issues. Subjective INTERVAL HPI: Patient [...] admitted from senior care and transferred from [facility] for obstructive jaundice Obstructive jaundice secondary to [...] provided by advocacy and protective services, call [phone] for consent Need plan for antibiotics, medical clearance, set for patient to go to [facility] at [place] Instructions for biliary drain Leave biliary drainage [...] wet or soi (more content not included)... [facility] 09-13-2020 Note HNO ID: [id number] Author: Mercy Monson MD Service: Infectious Disease [...] ? Mercy Monson MD [employer] Contact#: [phone] [facility] 09-12-2020 Note HNO ID: [id number] Author: Monique Mercedes MD Service: Hospital Medicine Author Type: Physician Type: Progress Notes Filed: 09/12/2020 10:06 AM Note Text: DEPARTMENT OF HOSPITAL MEDICINE PROGRESS NOTE SERVICE DATE: 09/12/2020 SERVICE TIME: 10:04 AM Hospital Medicine/Primary Attending: Monique Mercedes MD NIGHT AND WEEKEND COVERAGE: patient admitted to [facility]. please page [phone] between 7a and 5pm for patient issues. From 5p-7am, please page the night hospitalist on pager [phone] for patient issues. Subjective INTERVAL HPI: Patient [...] admitted from senior care and transferred from [facility] for obstructive jaundice Obstructive jaundice secondary to [...] provided by advocacy and protective services, call [phone] for consent Need plan for antibiotics, medical clearance, set for patient to go to [facility] at [place] Medication and Non-Pharmacologic VTE Prophylaxis/Anticoagulants 08/28/202014 pneumatic compression stockings ([place], [place]) 08/28/201814 activity - mobilize patient ([place]) VTE Prophylaxis: VTE prophylaxis appropriate Disposition: SNF Plan of care discussed with: Provider, RN, Patient Plan communicated to: NA SIGNATURE: Monique Mercedes MD PATIENT NAME: Jesus Shaver DATE: September 12, 2020 TIME: 10:06 AM [facility] 09-11-2020 Note HNO ID: [id number] Author: Monique Mercedes MD Service: Hospital Medicine Author Type: Physician Type: Progress Notes Filed: 09/11/2020 9:56 AM Note Text: DEPARTMENT OF HOSPITAL MEDICINE PROGRESS NOTE SERVICE DATE: 09/11/2020 SERVICE TIME: 7:41 AM Hospital Medicine/Primary Attending: Monique Mercedes MD NIGHT AND WEEKEND COVERAGE: patient admitted to [facility]. please page [phone] between 7a and 5pm for patient issues. From 5p-7am, please page the night hospitalist on pager [phone] for patient issues. Subjective INTERVAL HPI: Patient [...] admitted from senior care and transferred from [facility] for obstructive jaundice Obstructive jaundice secondary to [...] provided by advocacy and protective services, call [phone] for consent Need plan for antibiotics, medical clearance, set for patient to go to [facility] at [place] Medication and Non-Pharmacologic VTE Prophylaxis/Anticoagulants 08/28/202014 pneumatic compression stockings ([place], [place]) 08/28/20 1815 activity - mobilize patient ([place]) VTE Prophylaxis: VTE prophylaxis appropriate Disposition: SNF Plan of care discussed with: Provider, RN, Patient Plan communicated to: Called and left message for guardian, to call back- extension [phone] SIGNATURE: Monique Mercedes MD PATIENT NAME: Jesus Shaver DATE: September 11, 2020 TIME: 7:41 AM [facility] 09-10-2020 Note HNO ID: [id number] Author: Irene Worrell DO Service: Hospital Medicine Author Type: Physician Type: Progress Notes Filed: 09/10/2020 1:20 PM Note Text: DEPARTMENT OF HOSPITAL MEDICINE PROGRESS NOTE SERVICE DATE: 09/10/2020 SERVICE TIME: 12:07 PM Hospital Medicine/Primary Attending: DO Dr. Daren Gomez will assume care of the patient on 09/11 NIGHT AND WEEKEND COVERAGE: [facility] COVERAGE: Patient admitted to [facility] From 0700 - 1630, please contact pager [phone] for patient issues. From 1630 - 0700, please contact the Night Hospitalist on pager [phone] for patient issues. Subjective INTERVAL HPI: Patient [...] a senior care who was transferred from [facility] for obstructive jaundice. ? Obstructive jaundice [...] thrombocytopenia and coagulopathy --As per records from [facility] he had liver biopsy done in [...] dependent on daily activities --PT/OT recs - [facility], patient will need to go to SNF for biliary drain ? MRDD --Patient lives in a senior care and needs help with his daily activities --In the past consent was provided by advocacy and protective services. Call [phone] for every consent. Medication and Non-Pharmacologic VTE Prophylaxi (more content not included)... [facility] 09-10-2020 Note HNO ID: [id number] Author: Mercy Monson MD Service: Infectious Disease [...] 0.92 0.73 - 1.22 mg/dL Final Micro: 08/28 COVID negative 08/30 acute viral [...] ? Mercy Monson MD [employer] Contact#: [phone] [facility] 09-09-2020 Note HNO ID: [id number] Author: Irene Worrell DO Service: Hospital Medicine Author Type: Physician Type: Progress Notes Filed: 09/09/2020 4:10 PM Note Text: DEPARTMENT OF HOSPITAL MEDICINE PROGRESS NOTE SERVICE DATE: 09/09/2020 SERVICE TIME: 4:07 PM Hospital Medicine/Primary Attending: Irene Worrell DO NIGHT AND WEEKEND COVERAGE: [facility] COVERAGE: Patient admitted to [facility] From 0700 - 1630, please contact pager [phone] for patient issues. From 1630 - 0700, please contact the Night Hospitalist on pager [phone] for patient issues. Subjective INTERVAL HPI: Patient [...] a senior care who was transferred from [facility] for obstructive jaundice. ? Obstructive jaundice [...] thrombocytopenia and coagulopathy --As per records from [facility] he had liver biopsy done in [...] dependent on daily activities --PT/OT recs - [facility], patient will need to go to SNF for biliary drain ? MRDD --Patient lives in a senior care and needs help with his daily activities --In the past consent was provided by advocacy and protective services. Call [phone] for every consent. Medication and Non-Pharmacologic VTE Prophylaxis/Anticoagulants 08/28/202014 pneumatic compression stockings ([place] 08/28/20 181 activity - mobilize patient ([place]) VTE Prophylaxis: VTE prophylaxis appropriate Disposition: SNF Plan of care discussed with: Patient, RN SIGNATURE: Irene Worrell DO PATIENT NAME: Jesus Shaver DATE: September 09, 2020 TIME: 4:10 PM etx [id number] [facility] 09-08-2020 Note HNO ID: [id number] Author: Irene Worrell DO Service: Hospital Medicine Author Type: Physician Type: Progress Notes Filed: 09/08/2020 2:52 PM Note Text: DEPARTMENT OF HOSPITAL MEDICINE PROGRESS NOTE SERVICE DATE: 09/08/2020 SERVICE TIME: 1:21 PM Hospital Medicine/Primary Attending: Irene Worrell, DO NIGHT AND WEEKEND COVERAGE: [facility] COVERAGE: Patient admitted to [facility] From 0700 - 1630, please contact pager [phone] for patient issues. From 163 - 07, please contact the Night Hospitalist on pager [phone] for patient issues. Subjective INTERVAL HPI: Patient [...] a senior care who was transferred from [facility] for obstructive jaundice. ? Obstructive jaundice [...] thrombocytopenia and coagulopathy --As per records from [facility] he had liver biopsy done in [...] dependent on daily activities --PT/OT recs - [facility], patient will need to go to SNF for biliary drain ? MRDD --Patient lives in a senior care and needs help with his daily activities --In the past consent was provided by advocacy and protective services. Call [phone] for every consent. Medication and Non-Pharmacologic VTE Prophylaxis/Anticoagulants 08/28/202014 pneumatic compression stockings ([place], [place]) 08/28/20 1815 activity - mobilize patient ([place] VTE Prophylaxis: VTE prophylaxis appropriate Disposition: SNF Plan of care discussed with: Patient, case management SIGNATURE: Irene Worrell DO PATIENT NAME: Jesus Shaver DATE: September 08, 2020 TIME: 2:51 PM etx [id number] [facility] 09-08-2020 Note HNO ID: [id number] Author: EZE Canales Service: Care Management Author Type: Associate Professor Of Management Type: Care Mgt Progress Note Filed: 09/08/2020 1:59 PM Note Text: CARE MANAGEMENT PROGRESS NOTE SERVICE DATE: 09/08/2020 SERVICE TIME: 10:53 AM LOS: 11 days Needs Prior to Discharge: Accepting Facility;Bed Availability;Level of Care;Discharge Transportation Pt unable to return to and will need SNF at [place]. SW left for Guardian- [facility]- [place]- [phone] Requesting SNF preferences. Awaiting return call. Pt has been accepted at the SNF he was previously at - [facility] . Pt will require LOC. Will begin that process once SNF preference from guardian is confirmed. SW following. UPDATE- Spoke with guardian who confirmed that she would prefer pt to admit to [facility] . Will require repeat COVID- ordered. Initiated LOC through [facility] and will require completion prior to [place]. BLS tentatively scheduled for 5pm on 09/09 pending LOC is obtained. SIGNATURE: EZE Canales PATIENT NAME: Jesus Shaver DATE: September 08, 2020 TIME: 10:53 AM PAGER/CONTACT #: [phone] [facility] 09-07-2020 Note HNO ID: [id number] Author: Irene Worrell DO Service: Hospital Medicine Author Type: Physician Type: Progress Notes Filed: 09/07/2020 2:59 PM Note Text: DEPARTMENT OF HOSPITAL MEDICINE PROGRESS NOTE SERVICE DATE: 09/07/2020 SERVICE TIME: 2:18 PM Hospital Medicine/Primary Attending: Irene Worrell DO NIGHT AND WEEKEND COVERAGE: [facility] COVERAGE: Patient admitted to [facility] From 0700 - 1630, please contact pager [phone] for patient issues. From 1630 - 0700, please contact the Night Hospitalist on pager [phone] for patient issues. Subjective INTERVAL HPI: Patient [...] a senior care who was transferred from [facility] for obstructive jaundice. ? Obstructive jaundice [...] thrombocytopenia and coagulopathy --As per records from [facility] he had liver biopsy done in [...] dependent on daily activities --PT/OT recs - [facility] ? MRDD --Patient lives in a senior care and needs help with his daily activities --In the past consent was provided by advocacy and protective services. Call [phone] for every consent. Hypokalemia --Replace Medication and Non-Pharmacologic VTE Prophylaxis/Anticoagulants 08/28/202014 pneumatic compression stockings ([place], [place]) 08/28/20 1815 activity - mobilize patient ([place] VTE Prophylaxis: VTE prophylaxis appropriate Disposition: SNF Plan of care discussed with: Patient, case management SIGNATURE: Irene Worrell DO PATIENT NAME: Jesus Shaver DATE: September 07, 2020 TIME: 2:59 PM etx [id number] [facility] 09-07-2020 Note HNO ID: [id number] Author: Radha Arnold PA-C Service: ? Author Type: Physician Flight Crew Scheduler Type: Progress Notes Filed: 09/07/2020 12:10 PM [...] note and using the links below. - prison drain plan (IRTC): GI, per GI patient to follow up with Dr. Torres Additional printouts of at-home instructions for care of biliary tube can be located at: [email or web address] A patient education video for care of a biliary drain is available on [employer]. Please use this link: [email or web address] IR will sign off on this patient. For routine concerns M- F 7- 4:30 page the IR KEYLA: [id number] or call [facility] Interventional Radiology: [phone]/Radiology Nurses: [phone]. After hours please call [facility] IR staff [...] Labs 09/07/20 0634 09/06/20 0640 09/05/20 0527 WBC 8.78 9.70 9.75 HB 10.1* 10.8* [...] 0659 09/07/20 07 - 09/08/20 0659 Shift 1741-4313 4372-8820 0747-2447 24 Hour Total 2597-6910 2405-1229 1602-2084 24 Hour Total INTAKE PO 480 120 60 660 PO 480 120 60 660 Shift Total 480 120 60 660 OUTPUT Urine 250 110 792 5374 Output ( External Collection Device 09/04/20 210 (more content not included)... [facility] 09-06-2020 Note HNO ID: [id number] Author: Irene Worrell DO Service: Hospital Medicine Author Type: Physician Type: Progress Notes Filed: 09/07/2020 2:58 PM Note Text: DEPARTMENT OF HOSPITAL MEDICINE PROGRESS NOTE SERVICE DATE: 09/06/2020 SERVICE TIME: 2:18 PM Hospital Medicine/Primary Attending: Irene Worrell DO NIGHT AND WEEKEND COVERAGE: [facility] COVERAGE: Patient admitted to [facility] From 0700 - 1630, please contact pager [phone] for patient issues. From 1630 - 0700, please contact the Night Hospitalist on pager [phone] for patient issues. Subjective INTERVAL HPI: Patient [...] a senior care who was transferred from [facility] for obstructive jaundice. ? Obstructive jaundice [...] thrombocytopenia and coagulopathy --As per records from [facility] he had liver biopsy done in [...] provided by advocacy and protective services. Call [phone] for every consent. Medication and Non-Pharmacologic VTE Prophylaxis/Anticoagulants 08/28/202014 pneumatic [place]ings [place] 08/28/201814 activity - mobilize [place] ([place] VTE Prophylaxis: VTE prophylaxis appropriate Disposition: To be determined Plan of care discussed with: Patient, case management SIGNATURE: Irene Worrell DO PATIENT NAME: Jesus Shaver DATE: September 06, 2020 TIME: 2:19 PM etx [id number] [facility] 09-05-2020 Note HNO ID: [id number] Author: Irene Worrell DO Service: Hospital Medicine Author Type: Physician Type: Progress Notes Filed: 09/07/2020 2:58 PM Note Text: DEPARTMENT OF HOSPITAL MEDICINE PROGRESS NOTE SERVICE DATE: 09/05/2020 SERVICE TIME: 10:55 AM Hospital Medicine/Primary Attending: Irene Worrell DO NIGHT AND WEEKEND COVERAGE: [facility] COVERAGE: Patient admitted to [facility] From 0700 - 1629, please contact pager [phone] for patient issues. From 1630 - 0700, please contact the Night Hospitalist on pager [phone] for patient issues. Subjective INTERVAL HPI: Patient [...] a senior care who was transferred from [facility] for obstructive jaundice. ? Obstructive jaundice [...] thrombocytopenia and coagulopathy --As per records from [facility] he had liver biopsy done in [...] provided by advocacy and protective services. Call [phone] for every consent. Medication and Non-Pharmacologic VTE Prophylaxis/Anticoagulants 08/28/202014 pneumatic compression stockings ([place]) 08/28/201814 activity - mobilize [place] VTE Prophylaxis: VTE prophylaxis appropriate Disposition: To be determined Plan of care discussed with: RN SIGNATURE: Irene Worrell DO PATIENT NAME: Jesus Shaver DATE: September 05, 2020 TIME: 11:43 AM etx [id number] [facility] 09-04-2020 Note HNO ID: [id number] Author: Irene Worrell DO Service: Hospital Medicine Author Type: Physician Type: Progress Notes Filed: 09/04/2020 11:09 AM Note Text: DEPARTMENT OF HOSPITAL MEDICINE PROGRESS NOTE SERVICE DATE: 09/04/2020 SERVICE TIME: 10:55 AM Hospital Medicine/Primary Attending: Irene Worrell DO NIGHT AND WEEKEND COVERAGE: [facility] COVERAGE: Patient admitted to [facility] From 00 - 1629, please contact pager [phone] for patient issues. From 163 - 699, please contact the Night Hospitalist on pager [phone] for patient issues. Subjective INTERVAL HPI: Patient [...] a senior care who was transferred from [facility] for obstructive jaundice. ? Obstructive jaundice [...] thrombocytopenia and coagulopathy --As per records from [facility] he had liver biopsy done in [...] provided by advocacy and protective services. Call [phone] for every consent. Hypokalemia --Replace Medication and Non-Pharmacologic VTE Prophylaxis/Anticoagulants 08/28/202014 pneumatic compression stockings ([place], [place]) 08/28/201814 activity - mobilize patient ([place] VTE Prophylaxis: VTE prophylaxis appropriate Disposition: To be determined Plan of care discussed with: Patient SIGNATURE: Irene Worrell DO PATIENT NAME: Jesus Shaver DATE: September 04, 2020 TIME: 10:55 AM etx [id number] [facility] 09-03-2020 Note HNO ID: [id number] Author: Anuja Patel MD Service: Hospital Medicine Author Type: Physician Type: Progress Notes Filed: 09/03/2020 2:25 PM Note Text: DEPARTMENT OF HOSPITAL MEDICINE PROGRESS NOTE SERVICE DATE: 09/03/2020 SERVICE TIME: 2:22 PM Hospital Medicine/Primary Attending: Anuja Patel MD NIGHT AND WEEKEND COVERAGE: [facility] COVERAGE: Patient admitted to [facility] From 0700 - 1630, please contact pager [phone] for patient issues. From 1630 - 0700, please contact the Night Hospitalist on pager [phone] for patient issues. Subjective INTERVAL HPI: Denied [...] in a senior care was transferred from [facility] for obstructive jaundice. #Obstructive jaundice: Presented [...] #History of cirrhosis: As per records from [facility] he had liver biopsy done in [...] physical therapy #M (more content not included)... [facility] 09-03-2020 Note HNO ID: [id number] Author: Jada Headley APRN.HIGH SCHOOL BAND DIRECTOR Service: Anesthesiology Author Type: Nurse Picture Engraver Type: Anesthesia Procedure Notes Filed: 09/03/2020 1:58 PM Note Text: ANESTHESIOLOGY PROCEDURE NOTE Airway General Information Procedure Start Time/Medication Administration: 09/03/2020 1:39 PM Patient location: IR. Timeout Performed Pre-procedure: timeout performed Consent Obtained: Yes Patient identity confirmed: arm band, care team automobile assembler and patient Staffing HIGH SCHOOL BAND DIRECTOR: Jada Headley APRN.HIGH SCHOOL BAND DIRECTOR Performed by: AWILDA Indications and Patient Condition [...] September 03, 2020 TIME: 1:56 PM CSN: [id number] [facility] 09-03-2020 Note HNO ID: [id number] Author: Jada Headley APRN.HIGH SCHOOL BAND DIRECTOR Service: Anesthesiology Author Type: Nurse Picture Engraver Type: Anesthesia Procedure Notes Filed: 09/03/2020 1:48 [...] Imaging Guidance Used: No SIGNATURE: Jada Headley APRN.HIGH SCHOOL BAND DIRECTOR PATIENT NAME: Jesus Shaver DATE: September 03, 2020 TIME: 1:47 PM CSN: [id number] [facility] 09-02-2020 Note HNO ID: [id number] Author: Anuja Patel MD Service: Hospital Medicine Author Type: Physician Type: Progress Notes Filed: 09/02/2020 12:53 PM Note Text: DEPARTMENT OF HOSPITAL MEDICINE PROGRESS NOTE SERVICE DATE: 09/02/2020 SERVICE TIME: 12:39 PM Hospital Medicine/Primary Attending: Anuja Patel MD NIGHT AND WEEKEND COVERAGE: [facility] COVERAGE: Patient admitted to [facility] From 0700 - 163, please contact pager [phone] for patient issues. From 1630 - 07, please contact the Night Hospitalist on pager [phone] for patient issues. Subjective INTERVAL HPI: Was [...] in a senior care was transferred from [facility] for obstructive jaundice. #Obstructive jaundice: Presented [...] #History of cirrhosis: As per records from [facility] he had liver biopsy done in [...] provided by advocacy and protective services. Call [phone] for every consent. Medication and Non-Pharmacologic VTE Prophylaxis/Anticoagulants 08/28/202014 pneumatic compression stockings ([place], [place]) 08/28/201814 activity - mobilize [place] ([place] VTE Prophylaxis: VTE prophylaxis appropriate Disposition: To be determined Plan of care discussed with RN Plan communicated to: Spoke with Le at [phone] ,she is group fitness assistant department head. Medical condition was updated. She reported that at the time of discharge if he needs SNF then guardian needs to be contacted regarding where he will need to go. SIGNATURE: Anuja Patel MD PATIENT NAME: Jessu Shaver DATE: September 01, 2020 TIME: 11:10 AM [facility] 09-01-2020 Note HNO ID: [id number] Author: Sulema Beard APRN.CRNA Service: Anesthesiology Author Type: Nurse Picture Engraver Type: Anesthesia Procedure Notes Filed: 09/01/2020 2:53 PM Note Text: ANESTHESIOLOGY PROCEDURE NOTE Airway General Information Procedure Start Time/Medication Administration: 09/01/2020 2:07 PM Patient location during procedure: OR Timeout Performed Pre-procedure: timeout performed Consent Obtained: Yes Patient identity confirmed: arm band and patient Staffing HIGH SCHOOL BAND DIRECTOR: Sulema Beard APRN.HIGH SCHOOL BAND DIRECTOR Indications and Patient Condition Preoxygenated: yes Patient position: sniffing Manual In-Line Stabilization: No Difficult Mask: No Indications for airway management: anesthesia anesthesia circuit Method: asleep Cricoid Pressure: No Airway Accessory: oral airway Final Airway Details Final airway type: endotracheal airway Final Endotracheal Airway: ETT Cuffed: yes Successful intubation technique: video laryngoscopy Devices used: Taylor Endotracheal tube insertion site: oral Blade size: #4 ETT size (mm): 7.5 Measured from: lips Measurement (cm): 23 Placement verified by: chest auscultation and capnometry Cormack-Lehane Classification: grade I - full view of glottis Number of attempts at approach: 1 Failed airway: no Unrecognized esophageal intubation: no Airway not difficult Comments Taylor #4 with grade 1 view with direct laryngoscopy view SIGNATURE: Sulema Beard APRN.CRNA PATIENT NAME: Jesus Shaver DATE: September 01, 2020 TIME: 2:51 PM CSN: [id number] [facility] 09-01-2020 Note HNO ID: [id number] Author: Anuja Patel MD Service: Hospital Medicine Author Type: Physician Type: Progress Notes Filed: 09/01/2020 11:12 AM Note Text: DEPARTMENT OF HOSPITAL MEDICINE PROGRESS NOTE SERVICE DATE: 09/01/2020 SERVICE TIME: 11:10 AM Hospital Medicine/Primary Attending: Anuja Patel MD NIGHT AND WEEKEND COVERAGE: [facility] COVERAGE: Patient admitted to [facility] From 0700 - 1630, please contact pager [phone] for patient issues. From 1630 - 0700, please contact the Night Hospitalist on pager [phone] for patient issues. Subjective INTERVAL HPI: Was [...] in a senior care was transferred from [facility] for obstructive jaundice. #Obstructive jaundice: Presented [...] #History of cirrhosis: As per records from [facility] he had liver biopsy done in [...] provided by advocacy and protective services. Call [phone] for every consent. Medication and Non-Pharmacologic VTE Prophylaxis/Anticoagulants 08/28/202014 pneumatic compression stockings ([place] 08/28/201814 activity - mobilize patient ([place] VTE Prophylaxis: VTE prophylaxis appropriate Disposition: To be determined Plan of care discussed with RN Plan communicated to: SIGNATURE: Anuja Patel MD PATIENT NAME: Jesus Shaver DATE: September 01, 2020 TIME: 11:10 AM [facility] 08-31-2020 Note HNO ID: [id number] Author: Anuja Patel MD Service: Hospital Medicine Author Type: Physician Type: Progress Notes Filed: 08/31/2020 12:44 PM Note Text: DEPARTMENT OF HOSPITAL MEDICINE PROGRESS NOTE SERVICE DATE: 08/31/2020 SERVICE TIME: 12:42 PM Hospital Medicine/Primary Attending: Anuja Patel MD NIGHT AND WEEKEND COVERAGE: [facility] COVERAGE: Patient admitted to [facility] From 0700 - 1630, please contact pager [phone] for patient issues. From 1630 - 0700, please contact the Night Hospitalist on pager [phone] for patient issues. Subjective INTERVAL HPI: Was [...] in a senior care was transferred from [facility] for obstructive jaundice. #Obstructive jaundice: Presented [...] #History of cirrhosis: As per records from [facility] he had liver biopsy done in [...] provided by advocacy and protective services. Call [phone] for every consent. Medication and Non-Pharmacologic VTE Prophylaxis/Anticoagulants 08/28/202014 pneumatic compression stockings ([place]) 08/28/201814 activity - mobilize patient ([place] VTE Prophylaxis: VTE prophylaxis appropriate Disposition: To be determined Plan of care discussed with RN Plan communicated to: SIGNATURE: Anuja Patel MD PATIENT NAME: Jesus Shaver DATE: August 31, 2020 TIME: 12:42 PM [facility] 08-30-2020 Note HNO ID: [id number] Author: EZE Canales Service: Care Management Author Type: Associate Professor Of Management Type: Care Mgt Initial Assessment Filed: 08/30/2020 4:19 PM Note Text: CARE MANAGEMENT: ASSESSMENT AND DISCHARGE PLAN SERVICE DATE: August 30, 2020 SERVICE TIME: 3:54 PM PRIMARY CARE PHYSICIAN: Jesus Mills MD ADMISSION STATUS: Inpatient Needs Prior to Discharge: Home Care Order MEDICAL: [place] 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 Last discharge within 30 days: No Advance Directive: Current Advance Directive: Other Document: See Comment In Chart: No Residential Worker Attempted to Assist with AD Completion: No [...] Receive Any Community Services or Home Care?: Intermediate Equipment Prior to Admission: Walker;Wheelchair SOCIAL: Living Arrangements: Usp Usp Information: [facility] Financial Resources: Disabled Primary Contact: Extended Emergency Contact Information Primary Emergency Contact: Mandy PARDO Relation: Guardian Secondary Emergency Contact: Le [employer]fuels Production Manager Mobile Relation: Boilermaker Assembly And Erection Supportive Patient Contact:: Yes Contact Resources: Guardian [...] Completely I feel financially burdened by my ovd-me-ptxett expenses for my prescription medication:: 0 - [...] Health Information: MRDD FREEDOM OF CHOICE EXPLAINED: [place] of Choice Given: No Reason Not Given: No placements necessary POTENTIAL TRANSITION PLANS Home OT/PT Pt transferred from a hospital in [place] for jaundice. Off the unit at [facility]. Pt with MRDD and unable to consent for himself. SW contacted [facility] - [phone]. ANI was directed to contact the multimedia services manager- Le at [phone] who reports that the pt has 24/7 care while at and has been using a rollator with standby assist. Reviewed the therapy eval and that the pt is requiring more assist. reports that they can manage if they pt is requiring a 2 person assist and will arrange [facility] for the pt. Requesting to have paper scripts and F2F sent in packet with pt. reports that they will provide transport upon Dc and will need a few hours notice to arrange for transport. reports that the pt has a guardian through [facility]. Confirmed on the Med[employer]ly website. pts guardian is [facility] Mandy [phone]. SW placed call to [facility] to alert of admission- Left VM. Needs pending. Case management following. SIGNATURE: EZE Canales PATIENT NAME: Jesus Shaver DATE: August 30, 2020 TIME: 3:54 PM PAGER/CONTACT #: [phone] [facility] 08-30-2020 Note HNO ID: [id number] Author: LARRY Alvarenga Service: Anesthesiology Author Type: Higher Education Administrator Type: Anesthesia Procedure Notes Filed: 08/30/2020 2:41 PM Note Text: ANESTHESIOLOGY PROCEDURE NOTE Airway General Information Procedure Start Time/Medication Administration: 08/30/2020 2:23 PM Patient location during procedure: OR Timeout Performed Pre-procedure: timeout performed Consent Obtained: Yes Patient identity confirmed: arm band Staffing Performed by: OLIVER student Indications and Patient Condition Preoxygenated: yes [...] August 30, 2020 TIME: 2:40 PM CSN: [id number] [facility] 08-30-2020 Note HNO ID: [id number] Author: Anuja Patel MD Service: Hospital Medicine Author Type: Physician Type: Progress Notes Filed: 08/30/2020 1:21 PM Note Text: DEPARTMENT OF HOSPITAL MEDICINE PROGRESS NOTE SERVICE DATE: 08/30/2020 SERVICE TIME: 12:41 PM Hospital Medicine/Primary Attending: Anuja Patel MD NIGHT AND WEEKEND COVERAGE: [facility] COVERAGE: Patient admitted to [facility] From 07 - 163, please contact pager [phone] for patient issues. From 1630 - 0700, please contact the Night Hospitalist on pager [phone] for patient issues. Subjective INTERVAL HPI: Patient [...] in a senior care was transferred from [facility] for obstructive jaundice. #Obstructive jaundice: Presented [...] #History of cirrhosis: As per records from [facility] he had liver biopsy done in [...] provided by advocacy and protective services. Called [phone] and left a voice message. Sara zavala called me back and was able to consent for the procedure when explained the need. Medication and Non-Pharmacologic VTE Prophylaxis/Anticoagulants 08/28/202014 pneumatic compression [place]ings [place] 08/28/20 1815 activity - mobilize patient ([place] VTE Prophylaxis: VTE prophylaxis appropriate Disposition: To be determined Plan of care discussed with RN Plan communicated to: SIGNATURE: Anuja Patel MD PATIENT NAME: Jesus Shaver DATE: August 30, 2020 TIME: 12:41 PM [facility] 08-30-2020 Note HNO ID: [id number] Author: Jayne Mejía RN Service: Care Management Author Type: Registered Nurse Type: Care Mgt Progress Note Filed: 08/30/2020 12:16 AM Note Text: CARE MANAGEMENT PROGRESS NOTE SERVICE DATE: 08/30/2020 SERVICE TIME: 12:16 AM LOS: 2 days Patient screened and discharge needs evaluated. Residential Worker to follow for discharge planning. SIGNATURE: Jayne Mejía RN PATIENT NAME: Jesus Shaver DATE: August 30, 2020 TIME: 12:15 AM PAGER/CONTACT #: [phone] [facility] 08-29-2020 Note HNO ID: [id number] Author: Magdy Delacruz MD Service: Hospital Medicine Author Type: Physician Type: Progress Notes Filed: 08/29/2020 2:56 PM Note Text: DEPARTMENT OF HOSPITAL MEDICINE PROGRESS NOTE SERVICE DATE: 08/29/2020 SERVICE TIME: 2:47 PM Hospital Medicine/Primary Attending: Magdy Delacruz MD NIGHT AND WEEKEND COVERAGE: Patient admitted to [facility]. From 7a to 4.30 p, please page [phone] for patient issues. from 4.30 p to 7am, please page the night hosptialist on pager [phone] for patient issues Subjective INTERVAL HPI: Patient [...] early signs of cirrhosis (per records from [place]). ? Today T bili 14.8, alk phos 344, ALT 95, AST 133 Transferred to [facility] for GI evaluation CT abdomen pelvis [...] Non-Pharmacologic VTE Prophylaxis/Anticoagulants 08/28/202014 pneumatic compression stockings ([place], [place]) 08/28/201814 activity - mobilize [place] ([place] VTE Prophylaxis: VTE prophylaxis appropriate Disposition: To be determined Plan of care discussed with RN and Consultants: ( GI) Plan communicated to: Tried calling Venecia Savage [employer] [phone] ? No response received SIGNATURE: Magdy Delacruz MD PATIENT NAME: Jesus Shaver DATE: August 29, 2020 TIME: 2:47 PM [facility] 08-29-2020 Note HNO ID: [id number] Author: Nikky Freeman Service: Radiology Author Type: Lot Worker Type: Progress Notes Filed: 08/29/2020 1:54 PM [...] PERIPHERAL IV DATA: Inpatient - refer to [facility] documentation RADIOLOGY DEPARTMENT: CT; Exam(s) Completed: Abdomen/Pelvis SIGNATURE: Nikky Freeman PATIENT NAME: Jesus Shaver DATE: August 29, 2020 TIME: 1:54 PM [facility] 08-28-2020 History of Present illness Narrative marteen transport here to take patient to [facility] apaerwork given to transport. Report called to [facility], instructed to leave the piv in. Report called to kulwinder PAINTER. Images from the original note were not included. Hospitalist Progress Note 08/27/2020 4:59 PM [phone]: Please page me for patient care issues. [phone]: Please page [facility] night Hospitalist for any issues. Subjective: Admit Date: 08/25/2020 PCP: No primary care provider on file. Room#: 6131/[id number] Interval History: Patient is a poor historian. [...] tablet Oral Daily LABS: CBC: Recent Labs 08/26/20302 WBC 6.8 RBC 3.73* HGB 12.7* HCT 36.5* MCV 98.0 RDW 14.8* PLT 70* BMP: Recent Labs 08/26/2030208/27/20 025 NA 139 141 K 3.7 4.3 CL 105 109* CO2 26 25 BUN 23* 22* CREATININE 0.83 0.92 GLUCOSE 100 82 CALCIUM 8.9 9.4 ANIONGAP 8 7 LIVER PROFILE: Recent Labs 08/26/2030208/27/20 025 AST 169* 159* ALT 134* 125* BILITOT [...] early signs of cirrhosis (per records from [place]). GI consulted and has seen. Recommends MRCP with sedation and states that should this be positive will need transfer to tertiary center for ERCP # Liver cirrhosis (as mentioned above) # Bradycardia with HR in the 40s-50s at [place]? Here has been 50s-70s. Monitor on tele # Thrombocytopenia - suspect due to liver cirrhosis (Note: per records, had hx of liver biopsy in past that showed early signs of cirrhosis per records from [place]). # Hypokalemia - replace as needed # Hx of MRDD - has court appointed guardian # Hx of seizures # Hx of cerebellar atrophy and gait disturbance # Chronic arthritis Plan spoke with GI RETAIL BUSINESS ANALYST this am Albino. They recommend transfer to [facility] for [facility]CP. I called and [facility] [place] backed [facility] with 90 patient's waiting for beds. They recommended I call [facility]. I called and they do NOT have GI doc precision farming coordinator that does ERCP. I called [facility] back. They ended up setting patient up for [facility] [place] who do have bed available and does have GI doctor that does ERCP on. Dr. Hernandez accepted and will discharge there once bed is available. Advance Directive: Full Code Discharge planning: REUBEN HYATT MD Division of Hospitalist Medicine Inpatient Medical Services PAGER: [phone] Nutrition rescreen completed. Patient referred to the [...] Intake/Output Summary (Last 24 hours) at 08/27/2020 5231 Last data filed at 08/27/2020 0519 Gross [...] a message. Contacts Le who is the warehouse team member and a great person of contact but Mandy is who will be needed for consent. If he needs to be transferred to a tertiary center they would prefer [facility] Attending Supervising Physician's Attestation Statement I performed a history and physical examination on the patient and discussed the management with the physician shampoo assistant. I reviewed and agree with the [...] is a 65 y.o. male?who presented to [facility] with Jaundice and abdominal pain. He [...] early signs of cirrhosis (per records from [place]). ?GI consulted and has seen. Recommends?MRCP with sedation and states that?should this be positive will need transfer to tertiary center for ERCP. I spoke with GI RETAIL BUSINESS ANALYST Albino yesterday morning. They recommend transfer to [facility] for [facility]. I called and [facility] main campus is backed up with 90 patient's waiting for beds. They recommended I call [facility]. I called and they do NOT have GI doc precision farming coordinator that does ERCP. I called [facility] main [place] back. They ended up setting patient up for [facility] who do have bed available and [...] early signs of cirrhosis per records from [place]). # Hypokalemia - replace as needed # [...] DISCHARGE MEDICATIONS: Jesus Shaver Home Medication Instructions NADINE:[id number] Printed on:08/28/20 1228 Medication Information calcium-vitamin D [...] assist PENDING STUDIES: No DISPOSITION: Transfer to [facility] FACILITY: [facility] Follow up with No follow-up provider specified. on INSTRUCTIONS TO MA/SW: Please call patient on day after discharge (must document patient contacted within 2 business days of discharge). FOLLOW UP QUESTIONS FOR MA/SW: 1. Did you get medications filled and taking them as instruct (more content not included)... [facility] 08-28-2020 Hospital course Narrative Discharge Summary Jesus Shaver : 1955 ADMIT DATE: 08/25/2020 DISCHARGE DATE: 08/28/2020 PRIMARY CARE PHYSICIAN: No primary care provider on file. VISIT STATUS: Admission CODE STATUS: Full Code DISCHARGE DIAGNOSES: Active Problems: Bradycardia Jaundice Resolved Problems: * No resolved hospital problems. * HOSPITAL COURSE: Jesus is a 65 y.o. male who presented to [facility] with Jaundice and abdominal pain. He [...] early signs of cirrhosis (per records from [place]). GI consulted and has seen. Recommends MRCP with sedation and states that should this be positive will need transfer to tertiary center for ERCP. I spoke with GI RETAIL BUSINESS ANALYST Albino yesterday morning. They recommend transfer to [facility] for ERCP. I called and [facility] is backed up with 90 patient's waiting for beds. They recommended I call [facility]. I called and they do NOT have GI doc precision farming coordinator that does ERCP. I called [facility] back. They ended up setting patient up for [facility] who do have bed available and does [...] early signs of cirrhosis per records from [place]). # Hypokalemia - replace as needed # [...] DISCHARGE MEDICATIONS: Jesus Shaver Home Medication Instructions NADINE:[id number] Printed on:08/28/20 1228 Medication Information calcium-vitamin D [...] assist PENDING STUDIES: No DISPOSITION: Transfer to [facility] FACILITY: [facility] Follow up with No follow-up provider [...] [facility] Work Phone: 06-16-2020 Note HNO ID: [id number] Author: Jesus Mills Service: ? Author Type: Physician Type: Progress Notes Filed: 06/16/2020 8:31 AM Note Text: Patient presents with: Yearly Exam HPI: Patient presents today for office visit for annual check up. Has been doing well since back from the residential. Has started to gain weight again. Back [...] 1 tablet by mouth once daily. - ppilmna-pgebxkjhy-njgmgih D3 (OY[place] SHELL CALCIUM-VITAMIN D) 500 mg(1,250mg) [...] + DIFF - CMP (CMP) (FOR REMOTE [facility] USE) - VALPROIC A/DEPAKENE - LAMOTRIGINE 2. [...] labs. - LIPID PANEL (LIPB) (FOR REMOTE [facility] USE) Jesus Mills MD RTO in six months and prn. [facility] Evaluation note Diagnosis Jaundice Jaundice, unspecified, not of Bradycardia Other specified cardiac dysrhythmias documented in this encounter [facility] Work Phone: Evaluation noteNo assessment information available [facility] Work Phone: Summary Purpose Family History No [...] Yes October 20, 2020 1:27am Power of Supervisor Sewing Department Yes October 20 1:27am Advance Directive Response Recorded Date/ Time Advance Directives Yes October 17 3:53pm Living Will Yes October 20, 2020 12:27am Power of Supervisor Sewing Department Yes October 20 12:27am Chief Complaint and Reason for Visit Chief Complaint PENITENTIARY LABWORK PENITENTIARY LABWORK PENITENTIARY LAB WORK PENITENTIARY LAB WORK Chief Complaint PENITENTIARY LAB WOR K LABWORK LABWORK Chief Complaint PENITENTIARY LABWORK Chief Complaint PENITENTIARY LABWORK PENITENTIARY LAB WORK Chief Complaint PENITENTIARY LABWORK PENITENTIARY LAB WORK LABWORK Chief Complaint PENITENTIARY LABWORK PENITENTIARY LAB WORK LABWORK PENITENTIARY LABWORK Chief Complaint PENITENTIARY LABWORK PENITENTIARY LAB WORK LABWORK PENITENTIARY LABWORK PENITENTIARY LABWORK Chief Complaint PENITENTIARY LABWORK PENITENTIARY LABWORK PENITENTIARY LABWORK PENITENTIARY LABWORK Chief Complaint PENITENTIARY LABWORK PENITENTIARY LABWORK LABWORK Chief Complaint LABWORK Chief Complaint LABWORK PENITENTIARY LAB WORK Chief Complaint LABWORK PENITENTIARY LAB WORK LABWORK Additional Source Comments (unrecognized sect ion and content) No Status Records FoundNo Status Records FoundNo Status Records FoundNo Status Records FoundNo Status Records FoundNo Status Records FoundNo Status Records Found INFORMATION SOURCE (unrecogn ized section and content) DATE CREATED AUTHOR 01/30/2018 [facility] DATE CREATED AUTHOR AUTHOR'S ORGANIZ ATION 02/07/2020 [facility] [place] DATE CREATED AUTHOR AUTHOR'S ORGANIZ ATION 09/24/2020 [facility] DATE CREATED AUTHOR AUTHOR'S ORGANIZ ATION 10/13/2020 [facility] DATE CREATED AUTHOR AUTHOR'S ORGANIZ ATION 03/25/2021 [facility] DATE CREATED AUTHOR AUTHOR'S ORGANIZ ATION 05/17/2021 [facility] DATE CREATED AUTHOR AUTHOR[facility]S ORGANIZ ATION [facility] Goals (unrecognized section and content) Goals [...] BE BASED ON THE PRIMARY CLINICAL RECORDS. [employer] provides no warranty or guarantee of the accuracy or completeness of information in this document.
[2025-03-17 07:27] LABS: Hematocrit 42.0 % (40-54); Hemoglobin 13.6 g/dL (13.0-16.5); Immature Granulocytes Count 0.090 X10^3/uL (0.0-0.0); Mean Corp Hgb Conc 32.4 g/dL (32-36); Mean Corpuscular Volume 98.4 fL (80-94); Mean Platelet Vol. 11.2 fl (6.2-12.0); NRBC Flagged by Analyzer 0 % (0-5); Platelet Count 214 K/mm3 (150-450); RBC Distribution Width CV 13.0 % (11.6-14.6); RBC Distribution Width SD 46.7 fl (35.1-43.9); Red Blood Count 4.27 M/mm3 (4.6-6.2); White Blood Count 9.9 K/mm3 (4.4-11.0)
[2025-03-17 08:17] LABS: Anion Gap 18 (5-15); BUN 18 mg/dL (4-19); BUN/Creat Ratio 17.4 RATIO (10-20); Calcium,Total 8.7 mg/dL (7.6-11.0); Carbon Dioxide 16.1 mmol/L (21.0-32.0); Chloride 106 mmol/L (98-108); Glucose 86 mg/dL (70-99); Magnesium 2.2 mg/dL (1.5-2.2); Potassium 4.2 mmol/L (3.3-5.1); Vitamin D,25 Hydroxy 29.9 ng/mL (30-100)
== END ==
LOC: OLS.SW 05:00
PROVIDERS: PCP Internal Medicine; Visit Provider Internal Medicine
DX: D64.9 Anemia, unspecified (principal); G43.909 Migraine, unspecified, not intractable, without status migrainosus
CPT/HCPCS: 36415; 80048; 82306; 83735; 84443; 85025